=== PATIENT | female | born 1940 | race Caucasian/White ===

== ENCOUNTER 2018-02-06 10:01 | Outpatient (RCR) | payer MEDICARE ==
[~2018-02-06 10:01] MED LIST: ACHD5005 PO; AMIO200T50 PO; AMLO10TA4 PO; AMLO5TAB2 PO; ASP81CT PO; ATOR20TA66 PO; BACL10TA PO; CLIN-62 PO; CLOP75TA; CLPD75T; CODE-54; CPR500T PO; DABI150C5 PO; DABI75CA3 PO; DILT240C PO; DILT240C53 PO; DILT240C96 PO; HYDR-3714 PO; HYDR12.56 PO; HYDR25TA4 PO; IRBE1TAB17 PO; KCL10CCR; LEVO500T2 PO; LEVO75TA58 PO; LEVOTHYROXINE; LOSA100T7 PO; LOSARTAN; LVT.025T; LVT.05T; MAXIDE; METO-272 PO; METO-351 PO; METO50TA7 PO; MTP100TCR; MTP25TSR PO; MTP50T PO; NFNEB10T PO; POTA10CA43 PO; PRAV40TA PO; SIMV20TA3 PO; SIMV40TA2; SIMVASTATIN; SMV20T; VALS320T8 PO; [UNRECOGNIZED DRUG - OTHER]
== END 2018-03-07 | disposition home or self-care (01) ==
LOC: CARD 10:01
PROVIDERS: ATTEND Internal Medicine
DX: R42 Dizziness and giddiness (principal); R00.2 Palpitations
CPT/HCPCS: 93225; 93226

== ENCOUNTER → 2018-03-25 | Outpatient (CLI) | payer MEDICARE ==
--- NOTE | 2018-03-25 13:48 | Diagnostic Imaging Report ---
INDICATION: Injury to the ankle five days ago. Redness and swelling, hot to touch. EXAMINATION: Left ankle 03/15/2018. FINDINGS: Three views of the ankle demonstrate fairly diffuse soft tissue prominence. No acute fracture or dislocations appreciated. The ankle mortise is intact. Talar dome unremarkable. IMPRESSION: 1. Marked soft tissue prominence as described. Correlate for possible cellulitis versus edema. No underlying acute osseous abnormality appreciated. Dictated by: Dictated on workstation # [id number]
[2018-03-25 14:07] LABS: BASOPHILS # (AUTO) 0.1 10^3/uL (0.0-0.1); BASOPHILS % (AUTO) 1 % (0-10); EOSINOPHILS # (AUTO) 0.4 10^3/uL (0.0-0.3); EOSINOPHILS % (AUTO) 5 % (0-10); HEMATOCRIT 36 % (35-52); HEMOGLOBIN 11.7 G/DL (11.5-16.0); LYMPHOCYTES # (AUTO) 1.8 X 10^3 (1.0-4.0); LYMPHOCYTES % (AUTO) 22 % (12-44); MEAN CORPUSCULAR HEMOGLOBIN 30 PG (25-34); MEAN CORPUSCULAR HGB CONC 33 G/DL (32-36); MEAN CORPUSCULAR VOLUME 92 FL (80-99); MEAN PLATELET VOLUME 9.6 FL (7.4-10.4); MONOCYTES # (AUTO) 0.8 X 10^3 (0.0-1.0); MONOCYTES % (AUTO) 10 % (0-12); NEUTROPHILS # (AUTO) 5.2 X 10^3 (1.8-7.8); NEUTROPHILS % (AUTO) 63 % (42-75); PLATELET COUNT 308 10^3/uL (130-400); RED BLOOD COUNT 3.92 10^6/uL (4.35-5.85); RED CELL DISTRIBUTION WIDTH 14.2 % (10.0-14.5); WHITE BLOOD COUNT 8.3 10^3/uL (4.3-11.0)
[2018-03-25 14:20] LABS: INR 3.1 (0.8-1.4)
== END ==
LOC: LAB 13:17
PROVIDERS: ATTEND Nurse Practitioner Family
DX: Z51.81 Encounter for therapeutic drug level monitoring (principal); M25.472 Effusion, left ankle; Z79.01 Long term (current) use of anticoagulants; Z79.899 Other long term (current) drug therapy
CPT/HCPCS: 36415; 73610; 85025; 85610

== ENCOUNTER → 2018-04-21 | Outpatient (CLI) | payer MEDICARE | LOC: CARD 12:14 | PROVIDERS: ATTEND Internal Medicine Cardiovascular Disease | DX: I08.0 Rheumatic disorders of both mitral and aortic valves (principal); I25.10 Atherosclerotic heart disease of native coronary artery without angina pectoris; E78.5 Hyperlipidemia, unspecified; I10 Essential (primary) hypertension | CPT/HCPCS: 93306 ==

== ENCOUNTER 2018-08-16 10:30 | Outpatient (RCR) | payer MEDICARE | END 2018-08-16 13:20 | disposition home or self-care (01) | PROVIDERS: ATTEND Nurse Practitioner | DX: M54.41 Lumbago with sciatica, right side (principal) ==

== ENCOUNTER 2018-08-30 11:34 | Outpatient (RCR) | payer MEDICARE | END 2018-09-20 | disposition home or self-care (01) | LOC: CR3 11:34 | PROVIDERS: ATTEND Internal Medicine Cardiovascular Disease | DX: Z29.8 Encounter for other specified prophylactic measures (principal) ==

== ENCOUNTER 2018-09-08 08:54 | Emergency (ER) | payer MEDICARE ==
[~2018-09-08] VITALS: Ht 175.3 cm; Wt 78.0 kg
[2018-09-08 09:25] LABS: BASOPHILS # (AUTO) 0.1 10^3/uL (0.0-0.1); BASOPHILS % (AUTO) 1 % (0-10); EOSINOPHILS # (AUTO) 0.3 10^3/uL (0.0-0.3); EOSINOPHILS % (AUTO) 3 % (0-10); HEMATOCRIT 41 % (35-52); LYMPHOCYTES # (AUTO) 1.3 X 10^3 (1.0-4.0); LYMPHOCYTES % (AUTO) 15 % (12-44); MEAN CORPUSCULAR HEMOGLOBIN 29 PG (25-34); MEAN CORPUSCULAR HGB CONC 32 G/DL (32-36); MEAN CORPUSCULAR VOLUME 92 FL (80-99); MEAN PLATELET VOLUME 9.1 FL (7.4-10.4); MONOCYTES # (AUTO) 0.8 X 10^3 (0.0-1.0); MONOCYTES % (AUTO) 9 % (0-12); NEUTROPHILS % (AUTO) 72 % (42-75); PLATELET COUNT 374 10^3/uL (130-400); RED CELL DISTRIBUTION WIDTH 15.4 % (10.0-14.5); WHITE BLOOD COUNT 8.4 10^3/uL (4.3-11.0)
[2018-09-08] MEDS ORDERED: DILTIAZEM 25 MG/5 ML INJ (CARDIZEM) VIAL ONE (09:27)
[2018-09-08] MEDS ORDERED: NS (IVPB) 100 ML ONE (09:27)
[2018-09-08] MEDS ORDERED: DILTIAZEM 125 MG/25 ML IV (CARDIZEM) IV ONE (09:30)
[2018-09-08 09:43] LABS: ALBUMIN 4.2 GM/DL (3.2-4.5); BILIRUBIN,TOTAL 0.5 MG/DL (0.1-1.0); CALCIUM 9.6 MG/DL (8.5-10.1); CREATININE SERUM 1.16 MG/DL (0.60-1.30); MAGNESIUM 2.3 MG/DL (1.8-2.4); POTASSIUM 3.8 MMOL/L (3.6-5.0); TOTAL PROTEIN 7.8 GM/DL (6.4-8.2)
--- NOTE | 2018-09-08 09:44 | Consultation-Cardiology ---
HPI-Cardiology Cardiology Consultation Date of Consultation 09/08/18 Date of Admission Time Seen by Provider: 09:41 Indication: atrial fibrillation HPI 77-year-old lady with history of aortic valve replacement, paroxysmal atrial fibrillation was in her usual state of health until this morning when she woke up with palpitation feeling her heart racing, denied any chest pain or shortness of breath. Denied any syncope or near syncopal episode. Nunda slightly lightheaded. Came into the emergency room and noted to be in atrial fibrillation with rapid ventricular response. Home Medications & Allergies Allergies: Coded Allergies: Penicillins (Verified Allergy, Unknown, 05/03/07) Home Medication List Reviewed: Yes FOB-Wnxdts-Vyuprh Hx Patient Social History Marital Status: Employed/Student: retired Alcohol Use: Denies Use Recreational Drug Use: No Smoking Status: Never a Smoker Recent Hopitalizations: No Immunizations Up To Date Tetanus Booster (TDap): Unknown Date of Pneumonia Vaccine: Aug 08, 2008 Date of Influenza Vaccine: Jun 08, 2014 Past Medical History past medical history as described below Family Medical History Significant Family History: No Pertinent Family Hx Family Medical Hx noncontributory to her current condition Family History: Patient reports no known family medical history. Review of Systems Constitutional: no symptoms reported, see HPI EENTM: see HPI, no symptoms reported Respiratory: see HPI; No cough, No dyspnea on exertion, No hemoptysis, No orthopnea, No phlegm, No short of breath, No stridor, No wheezing, No other Cardiovascular: see HPI; No chest pain, No edema, No Hx of Intervention; palpitations; No syncope, No vascular heart diseas, No other Gastrointestinal: no symptoms reported, see HPI Genitourinary: no symptoms reported, see HPI Musculoskeletal: no symptoms reported, see HPI Skin: no symptoms reported, see HPI Psychiatric/Neurological: No Symptoms Reported, See HPI Reviewed Test Results Reviewed Test Results Lab Laboratory Tests Test 09/08/18 09:15 Range/Units White Blood Count 8.4 4.3-11.0 10^3/uL Red Blood Count 4.43 4.35-5.85 10^6/uL Hemoglobin 13.0 11.5-16.0 G/DL Hematocrit 41 35-52 % Mean Corpuscular Volume 92 80-99 FL Mean Corpuscular Hemoglobin 29 25-34 PG Mean Corpuscular Hemoglobin Concent 32 32-36 G/DL Red Cell Distribution Width 15.4 H 10.0-14.5 % Platelet Count 374 130-400 10^3/uL Mean Platelet Volume 9.1 7.4-10.4 FL Neutrophils (%) (Auto) 72 42-75 % Lymphocytes (%) (Auto) 15 12-44 % Monocytes (%) (Auto) 9 0-12 % Eosinophils (%) (Auto) 3 0-10 % Basophils (%) (Auto) 1 0-10 % Neutrophils # (Auto) 6.0 1.8-7.8 X 10^3 Lymphocytes # (Auto) 1.3 1.0-4.0 X 10^3 Monocytes # (Auto) 0.8 0.0-1.0 X 10^3 Eosinophils # (Auto) 0.3 0.0-0.3 10^3/uL Basophils # (Auto) 0.1 0.0-0.1 10^3/uL Physical Exam Vital Signs Capillary Refill : Height, Weight, BMI Height: 5'9.00" Weight: 175lbs. 2.4oz. [id number]; BMI Method:Stated General Appearance: No Apparent Distress, WD/WN Eyes: Bilateral Eye Normal Inspection, Bilateral Eye PERRL, Bilateral Eye EOMI HEENT: PERRL/EOMI, TMs Normal, Normal ENT Inspection, Pharynx Normal Neck: Full Range of Motion, Normal Inspection, Non Tender, Supple, Carotid Bruit Respiratory: Chest Non Tender, Lungs Clear, Normal Breath Sounds, No Accessory Muscle Use, No Respiratory Distress Cardiovascular: No Edema, No Gallop, No JVD, Normal Peripheral Pulses, Systolic Murmur, Irregularly Irregular, Tachycardia Gastrointestinal: Normal Bowel Sounds, No Organomegaly, No Pulsatile Mass, Non Tender, Soft Back: Normal Inspection, No CVA Tenderness, No Vertebral Tenderness Extremity: Normal Capillary Refill, Normal Inspection, Normal Range of Motion, Non Tender, No Calf Tenderness, No Pedal Edema Neurologic/Psychiatric: Alert, Oriented x3, No Motor/Sensory Deficits, Normal Mood/Affect Skin: Normal Color, Warm/Dry Lymphatic: No Adenopathy A/P-Cardiology Admission Diagnosis Paroxysmal atrial fibrillation Coronary artery disease Aortic valve stenosis Palpitation Assessment/Plan Paroxysmal atrial fibrillation, back in atrial fibrillation was rapid ventricular response, I will start on Cardizem drip, continue on Coreg and amiodarone and monitor her heart rate response, if she does not convert overnight. Consider electrical cardioversion Coronary artery disease with history of stent to LAD. Underwent cardiac catheterization in August 2017 in [place], which patient reports was normal. Continue to monitor Severe aortic valve stenosis, status post TAVR done in [place] in August 2017, continue to monitor. Mild bilateral carotid stenosis, history of syncope, continue to monitor Sick sinus syndrome, history of permanent pacemaker. Continue to monitor. Hypertension, continue to monitor blood pressure while on Cardizem drip Hyperlipidemia, monitor lipids Hypothyroidism, patient is maintained on amiodarone, followed and managed by primary care physician. EDY GOOD MD Sep 08, 2018 09:44
[2018-09-08] MEDS ORDERED: DILTIAZEM INJECTION 125 MG in NS (IVPB) 100 ML IV SCH (09:45)
[2018-09-08] MEDS ORDERED: CARVEDILOL 12.5 MG (COREG) TABLET PO ONE (09:45)
[2018-09-08] MEDS ORDERED: AMIODARONE 200 MG (CORDARONE) TAB PO SCH (09:45)
[2018-09-08] MEDS ORDERED: DILTIAZEM 25 MG/5 ML INJ (CARDIZEM) VIAL IVP ONE (09:45)
[2018-09-08 09:54] LABS: INR 3.2 (0.8-1.4); PROTHROMBIN TIME PATIENT 32.9 SEC (12.2-14.7)
[2018-09-08 10:03] LABS: FREE T4 (FREE THYROXINE) 1.33 NG/DL (0.70-1.48)
--- NOTE | 2018-09-08 10:57 | Diagnostic Imaging Report ---
INDICATION: Shortness of air, heart fluttering, atrial fibrillation. COMPARISON: 04/23/2015. FINDINGS: Loop recorder and pacemaker device unchanged. There is an aortic stent. The heart mildly enlarged but unchanged. No failure pattern, edema, pneumonia, effusion or pneumothorax. IMPRESSION: No acute appearing abnormality. Dictated by: Dictated on workstation # [id number]
--- NOTE | 2018-09-08 13:43 | ED Cardiac General ---
History of Present Illness General Chief Complaint: Respiratory Problems Stated Complaint: HEART FLUTTER;SOB Nursing Triage Note: PT PRESENTS TO ER WITH COMPLAINT OF SOA AND HEART FLUTTERING SINCE 2AM. STATES SHE CALLED [facility] OFFICE THIS AM AND WAS SENT HERE. PT HAS PACEMAKER AND HX OF AFIB. Source: patient Exam Limitations: no limitations History of Present Illness Date Seen by Provider: Sep 08, 2018 Time Seen by Provider: 09:05 Initial Comments This 77-year-old woman presents to the emergency room with complaints of fairly sudden onset of shortness of breath and fluttering heart around 02:00. She reports she can't hear her heartbeat in her ears. She sat in her recliner until her woke up. She has history of atrial fibrillation and has a pacemaker and a stent. She denies any chest pain. She reports calling Dr. Dixon's office this morning who directed her to the emergency room. She is on warfarin for stroke prophylaxis. She states her right leg is always swollen and she has no new lower extremity symptoms. She has an irregular rhythm in the 110s to 140s on the monitor. Allergies and Home Medications Allergies Coded Allergies: Penicillins (Verified Allergy, Unknown, 05/03/07) Home Medications Amiodarone Hcl 200 Mg Tab, 200 MG PO DAILY, (Reported) Amlodipine Besylate 5 Mg Tablet, 5 MG PO DAILY, (Reported) Atorvastatin 20 Mg Tablet, 20 MG PO HS, (Reported) Dabigatran Etexilate Mesylate 150 Mg Capsule, 150 MG PO BID, (Reported) Diltiazem HCl 240 Mg Cap.er.24h, 240 MG PO DAILY, (Reported) Hydrochlorothiazide 25 Mg Tablet, 25 MG PO DAILY, (Reported) Hydrocodone Bit/Acetaminophen 1 Each Tablet, 0.5-1 TAB PO Q4H PRN for PAIN, ( Reported) Levofloxacin 500 Mg Tablet, 500 MG PO DAILY Prescribed by: EDY DIXON on 04/24/15 0842 Levothyroxine Sodium 75 Mcg Tablet, 75 MCG PO DAILY, (Reported) Metoprolol Succinate 25 Mg Tab.er.24h, 25 MG PO DAILY Prescribed by: EDY DIXON on 04/24/15 0820 Valsartan 320 Mg Tablet, 320 MG PO DAILY, (Reported) Patient Home Medication List Home Medication List Reviewed: Yes Review of Systems Review of Systems Constitutional: no symptoms reported EENTM: See HPI Respiratory: See HPI Cardiovascular: See HPI Gastrointestinal: No Symptoms Reported Musculoskeletal: no symptoms reported Skin: no symptoms reported Psychiatric/Neurological: No Symptoms Reported Endocrine: No Symptoms Reported Hematologic/Lymphatic: No Symptoms Reported Past Dalvsqk-Upmgms-Czsbtc Hx Patient Social History Alcohol Use: Denies Use Recreational Drug Use: No Smoking Status: Never a Smoker Recent Foreign Travel: No Contact w/Someone Who Travel: No Recent Infectious Disease Expo: No Recent Hopitalizations: No Immunizations Up To Date Tetanus Booster (TDap): Unknown PED Vaccines UTD: No Date of Pneumonia Vaccine: Aug 08, 2008 Date of Influenza Vaccine: Jun 08, 2014 Seasonal Allergies Seasonal Allergies: Yes Past Medical History Surgeries: Yes (RIGHT INGUINAL HERNIA REPAIR, 1978 RIGHT KNEE SURGERY, ANKLE 1999) Coronary Stent, Pacemaker Respiratory: No Tuberculosis Cardiac: Yes (PACEMAKER) Atrial Fibrillation, High Cholesterol, Hypertension Neurological: No Reproductive Disorders: No Female Reproductive Disorders: Denies Sexually Transmitted Disease: No HIV/AIDS: No Gastrointestinal: No Musculoskeletal: No Endocrine: Yes Hypothyroidsim Cancer: No Psychosocial: No Integumentary: No Blood Disorders: No Family Medical History Patient reports no known family medical history. No Pertinent Family Hx Physical Exam Vital Signs Vital Signs - First Documented 09/08/18 09:00 Temp 98.4 Pulse 128 Resp 24 B/P (MAP) 142/101 (115) Pulse Ox 96 O2 Delivery Room Air Capillary Refill : Less Than 3 Seconds Height, Weight, BMI Height: 5'9.00" Weight: 172lbs. 2.4oz. 78.211824vm; BMI Method:Stated General Appearance: No Apparent Distress, WD/WN HEENT: PERRL/EOMI, Normal ENT Inspection Neck: Normal Inspection Respiratory: Lungs Clear, Normal Breath Sounds, No Accessory Muscle Use, No Respiratory Distress Cardiovascular: No Edema, No Murmur, Irregularly Irregular, Tachycardia Gastrointestinal: Normal Bowel Sounds, Non Tender, Soft Extremity: Non Tender, No Calf Tenderness, Pedal Edema (Mild edema of the right lower extremity) Neurologic/Psychiatric: Alert, Oriented x3, No Motor/Sensory Deficits, Normal Mood/Affect, state director II-XII Norm as Tested Skin: Normal Color, Warm/Dry Progress/Results/Core Measures Results/Orders Lab Results Laboratory Tests Test 09/08/18 09:13 2/1/19 09:15 Range/Units Prothrombin Time 32.9 H 12.2-14.7 SEC INR Comment 3.2 H 0.8-1.4 Activated Partial Thromboplast Time 49 H 24-35 SEC White Blood Count 8.4 4.3-11.0 10^3/uL Red Blood Count 4.43 4.35-5.85 10^6/uL Hemoglobin 13.0 11.5-16.0 G/DL Hematocrit 41 35-52 % Mean Corpuscular Volume 92 80-99 FL Mean Corpuscular Hemoglobin 29 25-34 PG Mean Corpuscular Hemoglobin Concent 32 32-36 G/DL Red Cell Distribution Width 15.4 H 10.0-14.5 % Platelet Count 374 130-400 10^3/uL Mean Platelet Volume 9.1 7.4-10.4 FL Neutrophils (%) (Auto) 72 42-75 % Lymphocytes (%) (Auto) 15 12-44 % Monocytes (%) (Auto) 9 0-12 % Eosinophils (%) (Auto) 3 0-10 % Basophils (%) (Auto) 1 0-10 % Neutrophils # (Auto) 6.0 1.8-7.8 X 10^3 Lymphocytes # (Auto) 1.3 1.0-4.0 X 10^3 Monocytes # (Auto) 0.8 0.0-1.0 X 10^3 Eosinophils # (Auto) 0.3 0.0-0.3 10^3/uL Basophils # (Auto) 0.1 0.0-0.1 10^3/uL Sodium Level 142 135-145 MMOL/L Potassium Level 3.8 3.6-5.0 MMOL/L Chloride Level 106 98-107 MMOL/L Carbon Dioxide Level 22 21-32 MMOL/L Anion Gap 14 5-14 MMOL/L Blood Urea Nitrogen 18 7-18 MG/DL Creatinine 1.16 0.60-1.30 MG/DL Estimat Glomerular Filtration Rate 45 BUN/Creatinine Ratio 16 Glucose Level 172 H 70-105 MG/DL Calcium Level 9.6 8.5-10.1 MG/DL Corrected Calcium 9.4 8.5-10.1 MG/DL Magnesium Level 2.3 1.8-2.4 MG/DL Total Bilirubin 0.5 0.1-1.0 MG/DL Aspartate Amino Transf (AST/SGOT) 20 5-34 U/L Alanine Aminotransferase (ALT/SGPT) 18 0-55 U/L Alkaline Phosphatase 121 40-136 U/L B-Type Natriuretic Peptide 306.0 H <100.0 PG/ML Total Protein 7.8 6.4-8.2 GM/DL Albumin 4.2 3.2-4.5 GM/DL Thyroid Stimulating Hormone (TSH) 2.26 0.35-4.94 UIU/ML Free Thyroxine 1.33 0.70-1.48 NG/DL My Orders Orders - JOHN KERNS MD BNP (09/08/18 09:18) Cbc With Automated Diff (09/08/18 09:18) Comprehensive Metabolic Panel (09/08/18:18) Magnesium (09/08/18 09:20) Thyroid Stimulating Hormone (09/08/18 09:20) Free T4 (Free Thyroxine) (09/08/18 09:20) Saline Lock/Iv-Start (09/08/18 09:20) Ekg Tracing (09/08/18 09:20) Monitor-Rhythm Ecg Trace Only (09/08/18 09:20) Ns (Ivpb) (Sodium Chloride 0.9% Ivpb Bag (09/08/18 09:27) Diltiazem Injection (Cardizem Injection) (09/08/18 09:27) Diltiazem Iv For Drip (Cardizem Iv For D (09/08/18 09:30) Chest 1 View, Ap/Pa Only (09/08/18 10:05) Ekg Tracing (09/08/18 11:37) Medications Given in ED Current Medications Medications Dose Ordered Sig/Robbin Route Start Time Stop Time Status Last Admin Dose Admin Carvedilol 12.5 mg ONCE ONCE PO 09/08/18 09:45 09/08/18 14:22 DC 09/08/18 14:27 12.5 MG Diltiazem HCl 10 mg ONCE ONCE IVP 09/08/18 09:45 09/08/18 14:22 DC 09/08/18 09:37 10 MG Vital Signs/I&O 09/08/18 09/08/18 09:00 14:20 Temp 98.4 Pulse 128 62 Resp 24 20 B/P (MAP) 142/101 (115) 140/67 (91) Pulse Ox 96 97 O2 Delivery Room Air Room Air Blood Pressure Mean: 115 Progress Progress Note : Progress Note Patient was placed on a Cardizem drip. Dr. Dixon came to see the patient and evaluated her. We kept her on a Cardizem drip until she converted to a rate- controlled paced rhythm. She was then dismissed home with instructions to take her amiodarone twice daily. She is to follow-up with Dr. Dixon next week. Follow-up plan was discussed with Dr. Dixon before dismissal. EKG #1: EKG Time: 09:02 Rate: 129 Rhythm: A Fib/Flutter Comment Atrial flutter with RVR. No acute ST elevation or depression. EKG #2: EKG Time: 11:41 Rate: 67 Rhythm: atrial paced Comment Atrial paced rhythm with no diagnostic ST changes. Similar to prior. LVH by automated read. Diagnostic Imaging Diagonstic Imaging: Xray Plain Films/CT/US/NM/MRI: chest Comments NAME: JAZMÍN GRIDER [facility] REC#: [id number] PT STATUS: REG ER : 1940 PHYSICIAN: JOHN KERNS MD ADMIT DATE: 09/08/18/ER Signed Date of Exam: 09/08/18 CHEST 1 VIEW, AP/PA ONLY INDICATION: Shortness of air, heart fluttering, atrial fibrillation. COMPARISON: 04/23/2015. FINDINGS: Loop recorder and pacemaker device unchanged. There is an aortic stent. The heart mildly enlarged but unchanged. No failure pattern, edema, pneumonia, effusion or pneumothorax. IMPRESSION: No acute appearing abnormality. Dictated by: Dictated on workstation # [id number] Dict: 09/08/18 1052 Trans: 09/08/18 1408 Interpreted by: YAYA ESTRADA Electronically signed by: YAYA ESTRADA 09/08/18 1408 Departure Impression Primary Impression: Atrial fibrillation with RVR Disposition: 01 HOME, SELF-CARE Condition: Improved Departure-Patient Inst. Decision time for Depature: 13:42 Referrals: JOA[facility] PERERA MD (PCP/Family) Primary Care Physician Patient Instructions: Atrial Fibrillation Add. Discharge Instructions: Increase your amiodarone to twice daily. Continue all your other medications as prescribed. See Dr. Dixon in his clinic next week. Follow-up with your primary care provider as soon as possible. Return to care if you have worsening symptoms again. All discharge instructions reviewed with patient and/or family. Voiced understanding. Copy Copies To 1: EDY DIXON MD, [facility] T MD Sep 08, 2018 13:43
[2018-09-08 14:20] VITALS: BP 140/67
[2018-09-08] MEDS ORDERED: warFARin 2 MG (COUMADIN) TAB PO SCH (18:00)
[2018-09-08] MEDS ORDERED: CARVEDILOL 12.5 MG (COREG) TABLET PO SCH (21:00)
== END 2018-09-08 14:20 | disposition home or self-care (01) ==
LOC: EDUNIT# 08:54 → ER 08:55
DX: I48.91 Unspecified atrial fibrillation (principal); E78.00 Pure hypercholesterolemia, unspecified; I10 Essential (primary) hypertension; E03.9 Hypothyroidism, unspecified; Z95.5 Presence of coronary angioplasty implant and graft; Z95.0 Presence of cardiac pacemaker; Z88.0 Allergy status to penicillin; Z79.01 Long term (current) use of anticoagulants; Z98.890 Other specified postprocedural states
CPT/HCPCS: 36415; 71045; 80053; 83735; 83880; 84439; 84443; 85025; 85610; 85730; 93005; 93041

== ENCOUNTER → 2018-10-12 | Outpatient (CLI) | payer MEDICARE | LOC: CARD 12:48 | PROVIDERS: ATTEND Physician Assistant | DX: I48.0 Paroxysmal atrial fibrillation (principal); I25.10 Atherosclerotic heart disease of native coronary artery without angina pectoris; K21.9 Gastro-esophageal reflux disease without esophagitis; E78.5 Hyperlipidemia, unspecified; I10 Essential (primary) hypertension; I08.3 Combined rheumatic disorders of mitral, aortic and tricuspid valves | CPT/HCPCS: 93306 ==

== ENCOUNTER 2018-11-07 07:02 | Inpatient (IN) | payer MEDICARE ==
[~2018-11-07] VITALS: Ht 175.3 cm; Wt 77.8 kg
--- OUTSIDE RECORDS SUMMARY | 2018-11-07 07:09 | XMS REPORT | Continuity of Care Document ---
Author Author [facility] Organization [facility] Address Unknown Phone Unavailable Allergies Active Description Code Type Severity Reaction Onset Reported/Identified Relationship to Patient Clinical Status Yes Penicillins [id number] Drug Allergy Unknown N/A 05/03/2007 Medications There is no data. Problems Date Dx Coded Attending Type Code Diagnosis Diagnosed By 07/07/1319 MAXIME DOS SANTOS APRN Ot M54.41 LUMBAGO WITH SCIATICA, RIGHT SIDE 05/05/2007 Ot 787.91 07/30/2010 Ot 787.91 2010 Ot 244.9 2010 Ot 272.4 2010 Ot 401.9 2010 Ot 412 2010 Ot 414.01 2010 Ot 427.31 2010 Ot 429.3 2010 Ot 786.50 2010 Ot V45.82 08/30/2011 Ot 244.9 08/30/2011 Ot 272.4 08/30/2011 Ot 275.2 08/30/2011 Ot 276.8 08/30/2011 Ot 402.90 08/30/2011 Ot 410.71 08/30/2011 Ot 414.01 08/30/2011 Ot 427.31 08/30/2011 Ot 427.81 08/30/2011 Ot E944.3 08/30/2011 Ot V45.82 10/02/2012 Ot 427.31 ATRIAL FIBRILLATION 10/02/2012 Ot 785.1 PALPITATIONS 11/28/2012 Ot 462 ACUTE PHARYNGITIS 11/28/2012 Ot 527.2 SIALOADENITIS 03/20/2013 JOAQUÍN PERERA MD Ot 244.9 HYPOTHYROIDISM NOS 03/20/2013 JOAQUÍN PERERA MD Ot 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 03/20/2013 JOAQUÍN PERERA MD Ot 272.4 HYPERLIPIDEMIA NEC/NOS 03/20/2013 JOAQUÍN PERERA MD Ot 401.9 HYPERTENSION NOS 03/20/2013 JOAQUÍN PERERA MD Ot 413.9 ANGINA PECTORIS NEC/NOS 03/20/2013 JOAQUÍN PERERA MD Ot 414.01 CORONARY ATHEROSCLEROSIS OF [place] CORON 03/20/2013 JOAQUÍN PERERA MD Ot 424.1 AORTIC VALVE DISORDER 03/20/2013 JOAQUÍN PERERA MD Ot 427.31 ATRIAL FIBRILLATION 03/20/2013 JOAQUÍN PERERA MD Ot 427.89 CARDIAC DYSRHYTHMIAS NEC 03/20/2013 JOAQUÍN PERERA MD Ot V12.01 PERSONAL HISTORY OF TUBERCULOSIS 03/20/2013 JOAQUÍN PERERA MD Ot V12.51 HX-VENOUS THROMBOSIS EMBOLISM 03/20/2013 JOAQUÍN PERERA MD Ot V45.82 PERCUTANEOUS TRANSLUM CORON ANGIOPLASTY 04/18/2013 JOAQUÍN PERERA MD Ot 244.9 HYPOTHYROIDISM NOS 04/18/2013 JOAQUÍN PERERA MD Ot 276.8 HYPOPOTASSEMIA 04/18/2013 JOAQUÍN PERERA MD Ot 787.91 DIARRHEA 04/18/2013 JOAQUÍN PERERA MD Ot V58.69 OTH MED,LT,CURRENT USE 07/03/2014 JOAQUÍN PERERA MD Ot 793.80 07/15/2014 JOAQUÍN PERERA MD Ot 793.80 10/20/2014 Ot 847.0 SPRAIN OF NECK 10/20/2014 Ot 847.2 SPRAIN LUMBAR REGION 10/20/2014 Ot 850.0 CONCUSSION W/ O COMA 10/20/2014 Ot 959.01 HEAD INJURY , NOS 10/20/2014 Ot E000.0 CIVILIAN ACTIVITY DONE FOR INCOME OR PAY 10/20/2014 Ot E014.1 CAREGIVING INVOLVING LIFTING 10/20/2014 Ot E849.7 ACCID IN RESIDENT INSTIT 10/20/2014 Ot E888.1 FALL STRIKING OBJECT NEC 10/25/2014 Ot 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 10/25/2014 Ot 784.0 HEADACHE 10/25/2014 Ot 845.00 SPRAIN OF ANKLE NOS 10/25/2014 Ot E000.0 CIVILIAN ACTIVITY DONE FOR INCOME OR PAY 10/25/2014 Ot E849.[address] NEC 10/25/2014 Ot E888.9 FALL NOS 12/02/2014 EDY GOOD MD Ot 244.9 12/02/2014 EDY GOOD MD Ot 272.4 12/02/2014 EDY GOOD MD Ot 401.9 12/02/2014 EDY GOOD MD Ot 414.00 12/02/2014 EDY GOOD MD Ot 424.1 12/02/2014 EDY GOOD MD Ot 427.31 12/02/2014 EDY GOOD MD Ot 780.2 12/02/2014 EDY GOOD MD Ot 785.0 12/02/2014 EDY GOOD MD Ot V45.82 12/02/2014 EDY GOOD MD Ot V58.61 12/02/2014 EDY GOOD MD Ot V58.69 12/04/2014 EDY GOOD MD Ot 244.9 12/04/2014 EDY GOOD MD Ot 272.4 12/04/2014 EDY GOOD MD Ot 401.9 12/04/2014 EDY GOOD MD Ot 414.00 12/04/2014 EDY GOOD MD Ot 424.1 12/04/2014 EDY GOOD MD Ot 427.31 12/04/2014 EDY GOOD MD Ot 780.2 12/04/2014 EDY GOOD MD Ot 785.0 12/04/2014 EDY GOOD MD Ot V45.82 12/04/2014 EDY GOOD MD Ot V58.61 12/04/2014 EDY GOOD MD Ot V58.69 01/06/2015 MAXIME DOS SANTOS QUALITY ASSURANCE GROUP LEADER Ot 729.5 01/06/2015 MAXIME DOS SANTOS QUALITY ASSURANCE GROUP LEADER Ot 729.81 01/21/2015 MAXIME DOS SANTOS QUALITY ASSURANCE GROUP LEADER Ot 729.5 01/21/2015 MAXIME DOS SANTOS QUALITY ASSURANCE GROUP LEADER Ot 729.81 04/24/2015 EDY GOOD MD Ot 244.9 HYPOTHYROIDISM NOS 04/24/2015 EDY GOOD MD Ot 272.4 HYPERLIPIDEMIA NEC/NOS 04/24/2015 EDY GOOD MD Ot 401.9 HYPERTENSION NOS 04/24/2015 EDY GOOD MD Ot 414.01 CORONARY ATHEROSCLEROSIS OF [place] CORON 04/24/2015 EDY GOOD MD Ot 424.1 AORTIC VALVE DISORDER 04/24/2015 EDY GOOD MD Ot 427.31 ATRIAL FIBRILLATION 04/24/2015 EDY GOOD MD Ot 427.81 SINOATRIAL NODE DYSFUNCT 04/24/2015 EDY GOOD MD Ot 780.2 SYNCOPE AND COLLAPSE 04/24/2015 EDY GOOD MD Ot V45.82 PERCUTANEOUS TRANSLUM CORON ANGIOPLASTY 04/24/2015 EDY GOOD MD Ot V58.61 ANTICOAGULANTS,LT,CURRENT USE 04/24/2015 EDY GOOD MD Ot V58.69 OTH MED,LT,CURRENT USE 05/07/2015 EDY GOOD MD Ot 272.4 05/07/2015 EDY GOOD MD Ot 401.9 05/07/2015 EDY GOOD MD Ot 427.31 05/07/2015 EDY GOOD MD Ot 427.81 05/14/2015 EDY GOOD MD Ot 272.4 05/14/2015 EDY GOOD MD Ot 401.9 05/14/2015 EDY GOOD MD Ot 427.31 05/14/2015 EDY GOOD MD Ot 427.81 10/24/2015 Ot 721.3 10/24/2015 Ot 715.37 10/24/2015 Ot 272.4 10/24/2015 Ot 401.9 10/24/2015 Ot 414.00 10/24/2015 Ot 272.4 10/24/2015 Ot 401.9 10/24/2015 Ot 414.01 10/24/2015 Ot 272.4 10/24/2015 Ot 401.9 10/24/2015 Ot 414.01 10/24/2015 Ot 729.5 10/24/2015 Ot 782.3 10/24/2015 Ot 787.91 10/24/2015 Ot 787.91 10/24/2015 Ot 729.81 10/24/2015 Ot 455.0 10/24/2015 Ot 455.3 10/24/2015 Ot 562.10 10/24/2015 Ot 569.89 10/24/2015 Ot 787.91 10/24/2015 Ot V64.3 10/24/2015 Ot 562.10 10/24/2015 Ot 787.91 10/24/2015 Ot 427.31 10/24/2015 Ot 785.1 10/24/2015 EDY GOOD MD Ot 396.3 10/24/2015 EDY GOOD MD Ot 397.0 10/24/2015 FLORENTINO SWENSON, EDY J Ot 429.3 10/24/2015 Ot 244.9 10/24/2015 Ot 276.8 10/24/2015 Ot 787.91 10/24/2015 Ot V58.69 10/24/2015 JOAQUÍN PERERA MD Ot 786.2 10/24/2015 MAXIME DOS SANTOS QUALITY ASSURANCE GROUP LEADER Ot 722.52 10/24/2015 FLORENTINO SWENSON, EDY Rodríguez Ot 396.3 10/24/2015 FLORENTINO SWENSON, EDY J Ot 397.0 10/24/2015 FLORENTINO SWENSON, JUSTOHAR J Ot 401.9 10/24/2015 FLORENTINO SWENSON, JUSTOHAR J Ot 414.00 10/24/2015 FLORENTINO SWENSON, EDY J Ot 427.31 10/24/2015 ALTHEA GE MD Ot 719.45 10/24/2015 TREVER SWENSON, JOAQUÍN Baptiste Ot V76.12 10/24/2015 JOAQUÍN PERERA MD Ot 793.80 10/24/2015 EDY GOOD MD J Ot 244.9 10/24/2015 FLORENTINO SWENSON, EDY J Ot 272.4 10/24/2015 FLORENTINO SWENSON, EDY J Ot 401.9 10/24/2015 FLORENTINO SWENSON, EDY Rodríguez Ot 414.00 10/24/2015 FLORENTINO SWENSON, EDY Rodríguez Ot 424.1 10/24/2015 FLORENTINO SWENSON, EDY J Ot 427.31 10/24/2015 FLORENTINO SWENSON, EDY J Ot 780.2 10/24/2015 EDY GOOD MD Ot 785.0 10/24/2015 EDY GOOD MD J Ot V45.82 10/24/2015 FLORENTINO SWENSON, JUSTOHAR J Ot V58.61 10/24/2015 FLORENTINO SWENSON, JUSTOHAR J Ot V58.69 10/24/2015 MAXIME DOS SANTOS APRN Ot 729.5 10/24/2015 MAXIME DOS SANTOS QUALITY ASSURANCE GROUP LEADER Ot 729.81 10/24/2015 FLORENTINO SWENSON, EDY J Ot 272.4 10/24/2015 FLORENTINO SWENSON, JUSTOHAR J Ot 401.9 10/24/2015 EDY GOOD MD J Ot 427.31 10/24/2015 EDY GOOD MD J Ot 427.81 02/06/2018 Ot 427.31 ATRIAL FIBRILLATION 02/06/2018 Ot 785.1 PALPITATIONS 02/06/2018 EDY GOOD MD Ot 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 02/06/2018 EDY GOOD MD Ot 397.0 TRICUSPID VALVE DISEASE 02/06/2018 EDY GOOD MD Ot 429.3 CARDIOMEGALY 02/06/2018 Ot 244.9 HYPOTHYROIDISM NOS 02/06/2018 Ot 276.8 HYPOPOTASSEMIA 02/06/2018 Ot 787.91 DIARRHEA 02/06/2018 Ot V58.69 OT MED,LT, CURRENT USE 02/06/2018 JOAQUÍN PERERA MD Ot 786.2 COUGH 02/06/2018 MAXIME DOS SANTOS APRN Ot 722.52 LUMB/LUMBOSAC DISC DEGEN 02/06/2018 EDY GOOD MD Ot 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 02/06/2018 EDY GOOD MD Ot 397.0 TRICUSPID VALVE DISEASE 02/06/2018 EDY GOOD MD Ot 401.9 HYPERTENSION NOS 02/06/2018 EDY GOOD MD Ot 414.00 CORON ATHEROSCLER NOS TYPE VESSEL, NATIV 02/06/2018 EDY GOOD MD Ot 427.31 ATRIAL FIBRILLATION 02/06/2018 ALTHEA GE MD Ot 719.45 JOINT PAIN-PELVIS 02/06/2018 JOAQUÍN PERERA MD Ot V76.12 OT SCREEN MAMMO-MALIGN NEOPLASM OF [place] 02/06/2018 JOAQUÍN PERERA MD Ot 793.80 UNSPEC ABNORMAL MAMMOGRAM 02/06/2018 EDY GOOD MD Ot 244.9 HYPOTHYROIDISM NOS 02/06/2018 EDY GOOD MD Ot 272.4 HYPERLIPIDEMIA NEC/NOS 02/06/2018 EDY GOOD MD Ot 401.9 HYPERTENSION NOS 02/06/2018 EDY GOOD MD Ot 414.00 CORON ATHEROSCLER NOS TYPE VESSEL, [place]IV 02/06/2018 EDY GOOD MD Ot 424.1 AORTIC VALVE DISORDER 02/06/2018 EDY GOOD MD Ot 427.31 ATRIAL FIBRILLATION 02/06/2018 EDY GOOD MD Ot 780.2 SYNCOPE AND COLLAPSE 02/06/2018 EDY GOOD MD Ot 785.0 TACHYCARDIA NOS 02/06/2018 EDY GOOD MD Ot V45.82 PERCUTANEOUS TRANSLUM CORON ANGIOPLASTY 02/06/2018 EDY GOOD MD Ot V58.61 ANTICOAGULANTS,LT,CURRENT USE 02/06/2018 EDY GOOD MD Ot V58.69 OTH MED,LT,CURRENT USE 02/06/2018 MAXIME DOS SANTOS QUALITY ASSURANCE GROUP LEADER Ot 729.5 PAIN IN LIMB 02/06/2018 MAXIME DOS SANTOS QUALITY ASSURANCE GROUP LEADER Ot 729.81 SWELLING OF LIMB 02/06/2018 EDY GOOD MD Ot 272.4 HYPERLIPIDEMIA NEC/NOS 02/06/2018 EDY GOOD MD Ot 401.9 HYPERTENSION NOS 02/06/2018 EDY GOOD MD Ot 427.31 ATRIAL FIBRILLATION 02/06/2018 EDY GOOD MD Ot 427.81 SINOATRIAL NODE DYSFUNCT 03/07/2018 JOAQUÍN PERERA MD Ot R00.2 PALPITATIONS 03/07/2018 JOAQUÍN PERERA MD Ot R42 DIZZINESS AND GIDDINESS 03/28/2018 ZACH MO QUALITY ASSURANCE GROUP LEADER-C Ot M25.472 EFFUSION, LEFT ANKLE 03/28/2018 ZACH MO QUALITY ASSURANCE GROUP LEADER-C Ot Z51.81 ENCOUNTER FOR THERAPEUTIC DRUG LEVEL [facility] 03/28/2018 ZACH MO-C Ot Z79.01 FACTORY MACHINE COMPUTER OPERATOR (CURRENT) USE OF ANTICOAGULANT 03/28/2018 ZACH MO QUALITY ASSURANCE GROUP LEADER-C Ot Z79.899 OTHER HALF-WAY (CURRENT) DRUG THERAPY 03/28/2018 JOAQUÍN PERERA MD Ot R00.2 PALPITATIONS 03/28/2018 JOAQUÍN PERERA MD Ot R42 DIZZINESS AND GIDDINESS 04/07/2018 JOAQUÍN PERERA MD Ot R00.2 PALPITATIONS 04/07/2018 JOAQUÍN PERERA MD Ot R42 DIZZINESS AND GIDDINESS 04/25/2018 EDY GOOD MD Ot E78.5 HYPERLIPIDEMIA, UNSPECIFIED 04/25/2018 EDY GOOD MD Ot 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 04/25/2018 EDY GOOD MD Ot I10 ESSENTIAL (PRIMARY) HYPERTENSION 04/25/2018 EDY GOOD MD Ot I25.10 ATHSCL HEART DISEASE OF [place] CORONARY 04/26/2018 ZACH MO QUALITY ASSURANCE GROUP LEADER-C Ot M25.472 EFFUSION, LEFT ANKLE 04/26/2018 ZACH MO QUALITY ASSURANCE GROUP LEADER-C Ot Z51.81 ENCOUNTER FOR THERAPEUTIC DRUG LEVEL MON 04/26/2018 ZACH MO QUALITY ASSURANCE GROUP LEADER-C Ot Z79.01 FACTORY MACHINE COMPUTER OPERATOR (CURRENT) USE OF ANTICOAGULANT 04/26/2018 EMERSON MOA QUALITY ASSURANCE GROUP LEADER-C Ot Z79.899 OTHER HALF-WAY (CURRENT) DRUG THERAPY 05/03/2018 ZACH MO QUALITY ASSURANCE GROUP LEADER-C Ot M25.472 EFFUSION, LEFT ANKLE 05/03/2018 EMERSON MOA QUALITY ASSURANCE GROUP LEADER-C Ot Z51.81 ENCOUNTER FOR THERAPEUTIC DRUG LEVEL MON 05/03/2018 ZACH MO QUALITY ASSURANCE GROUP LEADER-C Ot Z79.01 FACTORY MACHINE COMPUTER OPERATOR (CURRENT) USE OF ANTICOAGULANT 05/03/2018 EMERSON MOA QUALITY ASSURANCE GROUP LEADER-C Ot Z79.899 OTHER FACTORY MACHINE COMPUTER OPERATOR (CURRENT) DRUG THERAPY 05/08/2018 TREVER SWENSON, JOAQUÍN Baptiste Ot R00.2 PALPITATIONS 05/08/2018 JOAQUÍN PERERA MD Ot R42 DIZZINESS AND GIDDINESS 05/10/2018 JOAQUÍN PERERA MD Ot R00.2 PALPITATIONS 05/10/2018 JOAQUÍN PERERA MD Ot R42 DIZZINESS AND GIDDINESS 05/11/2018 EDY GOOD MD Ot E78.5 HYPERLIPIDEMIA, UNSPECIFIED 05/11/2018 EDY GOOD MD Ot 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 05/11/2018 EDY GOOD MD Ot I10 ESSENTIAL (PRIMARY) HYPERTENSION 05/11/2018 EDY GOOD MD Ot I25.10 ATHSCL HEART DISEASE OF [place] CORONARY 05/17/2018 EDY GOOD MD Ot E78.5 HYPERLIPIDEMIA, UNSPECIFIED 05/17/2018 EDY GOOD MD Ot 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 05/17/2018 EDY GOOD MD Ot I10 ESSENTIAL (PRIMARY) HYPERTENSION 05/17/2018 EDY GOOD MD Ot I25.10 ATHSCL HEART DISEASE OF [place] CORONARY 07/12/2018 EDY GOOD MD Ot 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 07/12/2018 EDY GOOD MD Ot 397.0 TRICUSPID VALVE DISEASE 07/12/2018 EDY GOOD MD Ot 429.3 CARDIOMEGALY 07/12/2018 Ot 244.9 HYPOTHYROIDISM NOS 07/12/2018 Ot 276.8 HYPOPOTASSEMIA 07/12/2018 Ot 787.91 DIARRHEA 07/12/2018 Ot V58.69 OTH MED,LT, CURRENT USE 07/12/2018 JOAQUÍN PERERA MD Ot 786.2 COUGH 07/12/2018 MAXIME DOS SANTOS QUALITY ASSURANCE GROUP LEADER Ot 722.52 LUMB/LUMBOSAC DISC DEGEN 07/12/2018 EDY GOOD MD Ot 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 07/12/2018 EDY GOOD MD Ot 397.0 TRICUSPID VALVE DISEASE 07/12/2018 EDY GOOD MD Ot 401.9 HYPERTENSION NOS 07/12/2018 EDY GOOD MD Ot 414.00 CORON ATHEROSCLER NOS TYPE VESSEL, NATIV 07/12/2018 EDY GOOD MD Ot 427.31 ATRIAL FIBRILLATION 07/12/2018 ALTHEA GE MD Ot 719.45 JOINT PAIN-PELVIS 07/12/2018 JOAQUÍN PERERA MD Ot V76.12 OT SCREEN MAMMO-MALIGN NEOPLASM OF [place] 07/12/2018 JOAQUÍN PERERA MD Ot 793.80 UNSPEC ABNORMAL MAMMOGRAM 07/12/2018 EDY GOOD MD Ot 244.9 HYPOTHYROIDISM NOS 07/12/2018 EDY GOOD MD Ot 272.4 HYPERLIPIDEMIA NEC/NOS 07/12/2018 EDY GOOD MD Ot 401.9 HYPERTENSION NOS 07/12/2018 EDY GOOD MD Ot 414.00 CORON ATHEROSCLER NOS TYPE VESSEL, NATIV 07/12/2018 EDY GOOD MD Ot 424.1 AORTIC VALVE DISORDER 07/12/2018 EDY GOOD MD Ot 427.31 ATRIAL FIBRILLATION 07/12/2018 EDY GOOD MD Ot 780.2 SYNCOPE AND COLLAPSE 07/12/2018 EDY GOOD MD Ot 785.0 TACHYCARDIA NOS 07/12/2018 EDY GOOD MD Ot V45.82 PERCUTANEOUS TRANSLUM CORON ANGIOPLASTY 07/12/2018 EDY GOOD MD Ot V58.61 ANTICOAGULANTS,LT,CURRENT USE 07/12/2018 EYD GOOD MD Ot V58.69 OTH MED,LT,CURRENT USE 07/12/2018 MAXIME DOS SANTOS QUALITY ASSURANCE GROUP LEADER Ot 729.5 PAIN IN LIMB 07/12/2018 MAXIME DOS SANTOS APRN Ot 729.81 SWELLING OF LIMB 07/12/2018 EDY GOOD MD Ot 272.4 HYPERLIPIDEMIA NEC/NOS 07/12/2018 EDY GOOD MD Ot 401.9 HYPERTENSION NOS 07/12/2018 EDY GOOD MD Ot 427.31 ATRIAL FIBRILLATION 07/12/2018 EDY GOOD MD Ot 427.81 SINOATRIAL NODE DYSFUNCT 07/12/2018 ZACH MO QUALITY ASSURANCE GROUP LEADER-C Ot M25.472 EFFUSION, LEFT ANKLE 07/12/2018 ZACH MO QUALITY ASSURANCE GROUP LEADER-C Ot Z51.81 ENCOUNTER FOR THERAPEUTIC DRUG LEVEL MON 07/12/2018 ZACH MO QUALITY ASSURANCE GROUP LEADER-C Ot Z79.01 HALF-WAY (CURRENT) USE OF ANTICOAGULANT 07/12/2018 ZACH MO QUALITY ASSURANCE GROUP LEADER-C Ot Z79.899 OTHER FACTORY MACHINE COMPUTER OPERATOR (CURRENT) DRUG THERAPY 07/12/2018 EDY GOOD MD Ot E78.5 HYPERLIPIDEMIA, UNSPECIFIED 07/12/2018 EDY GOOD MD Ot 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 07/12/2018 EDY GOOD MD Ot I10 ESSENTIAL (PRIMARY) HYPERTENSION 07/12/2018 DEY GOOD MD Ot I25.10 ATHSCL HEART DISEASE OF [place] CORONARY 07/12/2018 JOAQUÍN PERERA MD Ot R00.2 PALPITATIONS 07/12/2018 JOAQUÍN PERERA MD Ot R42 DIZZINESS AND GIDDINESS 07/14/2018 MAXIME DOS SANTOS APRN Ot M54.41 LUMBAGO WITH SCIATICA, RIGHT SIDE 08/16/2018 MAXIME DOS SANTOS APRN Ot M54.41 LUMBAGO WITH SCIATICA, RIGHT SIDE 09/08/2018 Ot 244.9 HYPOTHYROIDISM NOS 09/08/2018 Ot 276.8 HYPOPOTASSEMIA 09/08/2018 Ot 787.91 DIARRHEA 09/08/2018 Ot V58.69 OTH MED,LT, CURRENT USE 09/08/2018 JOAQUÍN PERERA MD Ot 786.2 COUGH 09/08/2018 MAXIME DOS SANTOS APRN Ot 722.52 LUMB/LUMBOSAC DISC DEGEN 09/08/2018 EDY GOOD MD Ot 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 09/08/2018 EDY GOOD MD Ot 397.0 TRICUSPID VALVE DISEASE 09/08/2018 EDY GOOD MD Ot 401.9 HYPERTENSION NOS 09/08/2018 EDY GOOD MD Ot 414.00 CORON ATHEROSCLER NOS TYPE VESSEL, NATIV 09/08/2018 EDY GOOD MD Ot 427.31 ATRIAL FIBRILLATION 09/08/2018 LATHEA GE MD Ot 719.45 JOINT PAIN-PELVIS 09/08/2018 JOAQUÍN PERERA MD Ot V76.12 OT SCREEN MAMMO-MALIGN NEOPLASM OF [place] 09/08/2018 JOAQUÍN PERERA MD Ot 793.80 UNSPEC ABNORMAL MAMMOGRAM 09/08/2018 EDY GOOD MD Ot 244.9 HYPOTHYROIDISM NOS 09/08/2018 EDY GOOD MD Ot 272.4 HYPERLIPIDEMIA NEC/NOS 09/08/2018 EDY GOOD MD Ot 401.9 HYPERTENSION NOS 09/08/2018 EDY GOOD MD Ot 414.00 CORON ATHEROSCLER NOS TYPE VESSEL, NATIV 09/08/2018 EDY GOOD MD Ot 424.1 AORTIC VALVE DISORDER 09/08/2018 EDY GOOD MD Ot 427.31 ATRIAL FIBRILLATION 09/08/2018 EDY GOOD MD Ot 780.2 SYNCOPE AND COLLAPSE 09/08/2018 EDY GOOD MD Ot 785.0 TACHYCARDIA NOS 09/08/2018 EDY GOOD MD Ot V45.82 PERCUTANEOUS TRANSLUM CORON ANGIOPLASTY 09/08/2018 EDY GOOD MD Ot V58.61 ANTICOAGULANTS,LT,CURRENT USE 09/08/2018 EDY GOOD MD Ot V58.69 OT MED,LT,CURRENT USE 09/08/2018 MAXIME DOS SANTOS QUALITY ASSURANCE GROUP LEADER Ot 729.5 PAIN IN LIMB 09/08/2018 MAXIME DOS SANTOS QUALITY ASSURANCE GROUP LEADER Ot 729.81 SWELLING OF LIMB 09/08/2018 EDY GOOD MD Ot 272.4 HYPERLIPIDEMIA NEC/NOS 09/08/2018 EDY GOOD MD Ot 401.9 HYPERTENSION NOS 09/08/2018 EDY GOOD MD Ot 427.31 ATRIAL FIBRILLATION 09/08/2018 EDY GOOD MD Ot 427.81 SINOATRIAL NODE DYSFUNCT 09/08/2018 ZACH MO-C Ot M25.472 EFFUSION, LEFT ANKLE 09/08/2018 ZACH MO-C Ot Z51.81 ENCOUNTER FOR THERAPEUTIC DRUG LEVEL MON 09/08/2018 ZACH MO-C Ot Z79.01 HALF-WAY (CURRENT) USE OF ANTICOAGULANT 09/08/2018 ZACH MO-C Ot Z79.899 OTHER HALF-WAY (CURRENT) DRUG THERAPY 09/08/2018 EDY GOOD MD Ot E78.5 HYPERLIPIDEMIA, UNSPECIFIED 09/08/2018 EDY GOOD MD Ot 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 09/08/2018 EDY GOOD MD, Ot I10 ESSENTIAL (PRIMARY) HYPERTENSION 09/08/2018 EDY GOOD MD, Ot I25.10 ATHSCL HEART DISEASE OF [place] CORONARY 09/08/2018 TREVER SWENSON, JOAQUÍN Baptiste Ot R00.2 PALPITATIONS 09/08/2018 JOAQUÍN PERERA MD Ot R42 DIZZINESS AND GIDDINESS 09/08/2018 JOHN KERNS MD, Ot E03.9 HYPOTHYROIDISM, UNSPECIFIED 09/08/2018 JOHN KERNS MD, Ot E78.00 PURE HYPERCHOLESTEROLEMIA, UNSPECIFIED 09/08/2018 JOHN KERNS MD, Ot I10 ESSENTIAL (PRIMARY) HYPERTENSION 09/08/2018 JOHN KERNS MD, Ot I48.91 UNSPECIFIED ATRIAL FIBRILLATION 09/08/2018 JOHN KERNS MD Ot R06.02 SHORTNESS OF BREATH 09/08/2018 JOHN KERNS MD, Ot Z79.01 FACTORY MACHINE COMPUTER OPERATOR (CURRENT) USE OF ANTICOAGULANT 09/08/2018 JOHN KERNS MD, Ot Z88.0 ALLERGY STATUS TO PENICILLIN 09/08/2018 JOHN KERNS MD, Ot Z95.0 PRESENCE OF CARDIAC PACEMAKER 09/08/2018 JOHN KERNS MD, Ot Z95.5 PRESENCE OF CORONARY ANGIOPLASTY IMPLANT 09/08/2018 JOHN KERNS MD, Ot Z98.890 OTHER SPECIFIED POSTPROCEDURAL STATES 09/11/2018 JOHN KERNS MD, Ot E03.9 HYPOTHYROIDISM, UNSPECIFIED 09/11/2018 JOHN KERNS MD Ot E78.00 PURE HYPERCHOLESTEROLEMIA, UNSPECIFIED 09/11/2018 JOHN KERNS MD Ot I10 ESSENTIAL (PRIMARY) HYPERTENSION 09/11/2018 JOHN KERNS MD Ot I48.91 UNSPECIFIED ATRIAL FIBRILLATION 09/11/2018 JOHN KERNS MD Ot R06.02 SHORTNESS OF BREATH 09/11/2018 JOHN KERNS MD Ot Z79.01 HALF-WAY (CURRENT) USE OF ANTICOAGULANT 09/11/2018 JOHN KERNS MD Ot Z88.0 ALLERGY STATUS TO PENICILLIN 09/11/2018 JOHN KERNS MD Ot Z95.0 PRESENCE OF CARDIAC PACEMAKER 09/11/2018 JOHN KERNS MD Ot Z95.5 PRESENCE OF CORONARY ANGIOPLASTY IMPLANT 09/11/2018 JOHN KERNS MD Ot Z98.890 OTHER SPECIFIED POSTPROCEDURAL STATES 09/15/2018 JOHN KERNS MD Ot E03.9 HYPOTHYROIDISM, UNSPECIFIED 09/15/2018 JOHN KERNS MD Ot E78.00 PURE HYPERCHOLESTEROLEMIA, UNSPECIFIED 09/15/2018 JOHN KERNS MD Ot I10 ESSENTIAL (PRIMARY) HYPERTENSION 09/15/2018 JOHN KERNS MD Ot I48.91 UNSPECIFIED ATRIAL FIBRILLATION 09/15/2018 JOHN KERNS MD Ot R06.02 SHORTNESS OF BREATH 09/15/2018 JOHN KERNS MD Ot Z79.01 HALF-WAY (CURRENT) USE OF ANTICOAGULANT 09/15/2018 JOHN KERNS MD Ot Z88.0 ALLERGY STATUS TO PENICILLIN 09/15/2018 JOHN KERNS MD Ot Z95.0 PRESENCE OF CARDIAC PACEMAKER 09/15/2018 JOHN KERNS MD Ot Z95.5 PRESENCE OF CORONARY ANGIOPLASTY IMPLANT 09/15/2018 JOHN KERNS MD Ot Z98.890 OTHER SPECIFIED POSTPROCEDURAL STATES 10/13/2018 KIM HERNANDEZ Ot E78.5 HYPERLIPIDEMIA, UNSPECIFIED 10/13/2018 KIM HERNANDEZ Ot I08.3 COMB RHEUMATIC DISORD OF [place], AORTIC 10/13/2018 KIM HERNANDEZ Ot I10 ESSENTIAL (PRIMARY) HYPERTENSION 10/13/2018 KIM HERNANDEZ Ot I25.10 ATHSCL HEART DISEASE OF [place] CORONARY 10/13/2018 KIM HERNANDEZ Ot I48.0 PAROXYSMAL ATRIAL FIBRILLATION 10/13/2018 KIM HERNANDEZ Ot K21.9 GASTRO-ESOPHAGEAL REFLUX DISEASE WITHOUT 11/01/2018 KIM HERNANDEZ Ot E78.5 HYPERLIPIDEMIA, UNSPECIFIED 11/01/2018 KIM HERNANDEZ Ot I08.3 COMB RHEUMATIC DISORD OF [place], AORTIC 11/01/2018 KIM HERNANDEZ Ot I10 ESSENTIAL (PRIMARY) HYPERTENSION 11/01/2018 KIM HERNANDEZ Ot I25.10 ATHSCL HEART DISEASE OF [place] CORONARY 11/01/2018 KIM HERNANDEZ Ot I48.0 PAROXYSMAL ATRIAL FIBRILLATION 11/01/2018 KIM HERNANDEZ Ot K21.9 GASTRO-ESOPHAGEAL REFLUX DISEASE WITHOUT Procedures Code Description Performed By Performed On 00.40 PROCEDURE ON SINGLE VESSEL 11/19/2007 00.45 INSERTION OF ONE VASCULAR STENT 11/19/2007 00.66 PERC TRANSLUMINAL CORON ANGIOPLASTY PTCA 11/19/2007 36.07 INSRT OF DRUG-ELUTING CORON ARTERY STENT 11/19/2007 37.22 LEFT HEART CARDIAC CATH 11/19/2007 88.53 LT HEART ANGIOCARDIOGRAM 11/19/2007 88.56 CORONAR ARTERIOGR-2 CATH 11/19/2007 88.42 CONTRAST AORTOGRAM 11/20/2007 37.22 LEFT HEART CARDIAC CATH 03/19/2013 88.53 LT HEART ANGIOCARDIOGRAM 03/19/2013 88.56 CORONAR ARTERIOGR-2 CATH 03/19/2013 Results Test Result Range PT panel in platelet poor plasma by coagulation assay - 09/08/18 09:13 Prothrombin time (PT) in platelet poor plasma by coagulation assay 32.9 s 12.2-14.7 INR in platelet poor plasma or blood by coagulation assay 3.2 0.8-1.4 Activated partial thromboplastin time (aPTT) in platelet poor plasma bycoagulation assay - 09/08/18 09:13 Activated partial thromboplastin time (aPTT) in platelet poor plasma bycoagulation assay 49 s 24-35 Complete blood count (CBC) with automated white blood cell (WBC) differential - 09/08/18 09:15 Blood leukocytes automated count (number/volume) 8.4 10*3/uL 4.3-11.0 Blood erythrocytes automated count (number/volume) 4.43 10*6/uL 4.35-5.85 Venous blood hemoglobin measurement (mass/volume) 13.0 g/dL 11.5-16.0 Blood hematocrit (volume fraction) 41 % 35-52 Automated erythrocyte mean corpuscular volume 92 [foz_us] 80-99 Automated erythrocyte mean corpuscular hemoglobin (mass per erythrocyte) 29 pg 25-34 Automated erythrocyte mean corpuscular hemoglobin concentration measurement ( mass/volume) 32 g/dL 32-36 Automated erythrocyte distribution width ratio 15.4 % 10.0-14.5 Automated blood platelet count (count/volume) 374 10*3/uL 130-400 Automated blood platelet mean volume measurement 9.1 [foz_us] 7.4-10.4 Automated blood neutrophils/100 leukocytes 72 % 42-75 Automated blood lymphocytes/100 leukocytes 15 % 12-44 Blood monocytes/100 leukocytes 9 % 0-12 Automated blood eosinophils/100 leukocytes 3 % 0-10 Automated blood basophils/100 leukocytes 1 % 0-10 Blood neutrophils automated count (number/volume) 6.0 10*3 1.8-7.8 Blood lymphocytes automated count (number/volume) 1.3 10*3 1.0-4.0 Blood monocytes automated count (number/volume) 0.8 10*3 0.0-1.0 Automated eosinophil count 0.3 10*3/uL 0.0-0.3 Automated blood basophil count (count/volume) 0.1 10*3/uL 0.0-0.1 Comprehensive metabolic panel - 09/08/18 09:15 Serum or plasma sodium measurement (moles/volume) 142 mmol/L 135-145 Serum or plasma potassium measurement (moles/volume) 3.8 mmol/L 3.6-5.0 Serum or plasma chloride measurement (moles/volume) 106 mmol/L 98-107 Carbon dioxide 22 mmol/L 21-32 Serum or plasma anion gap determination (moles/volume) 14 mmol/L 5-14 Serum or plasma urea nitrogen measurement (mass/volume) 18 mg/dL 7-18 Serum or plasma creatinine measurement (mass/volume) 1.16 mg/dL 0.60-1.30 Serum or plasma urea nitrogen/creatinine mass ratio 16 NRG Serum or plasma creatinine measurement with calculation of estimated glomerular filtration rate 45 NRG Serum or plasma glucose measurement (mass/volume) 172 mg/dL 70-105 Serum or plasma calcium measurement (mass/volume) 9.6 mg/dL 8.5-10.1 Serum or plasma total bilirubin measurement (mass/volume) 0.5 mg/dL 0.1-1.0 Serum or plasma alkaline phosphatase measurement (enzymatic activity/volume) 121 U/L 40-136 Serum or plasma aspartate aminotransferase measurement (enzymatic activity/ volume) 20 U/L 5-34 Serum or plasma alanine aminotransferase measurement (enzymatic activity/volume ) 18 U/L 0-55 Serum or plasma protein measurement (mass/volume) 7.8 g/dL 6.4-8.2 Serum or plasma albumin measurement (mass/volume) 4.2 g/dL 3.2-4.5 CALCIUM CORRECTED 9.4 mg/dL 8.5-10.1 Magnesium - 09/08/18 09:15 Magnesium 2.3 mg/dL 1.8-2.4 Serum or plasma lithium measurement (moles/volume) - 09/08/18 09:15 BNP level 306.0 pg/mL <100.0 THYROID STIMULATING HORMONE - 09/08/18 09:15 THYROID STIMULATING HORMONE 2.26 u[iU]/mL 0.35-4.94 Serum or plasma thyroxine (T4) free measurement (mass/volume) - 09/08/18 09:15 Serum or plasma thyroxine (T4) free measurement (mass/volume) 1.33 ng/dL 0.70-1.48 Encounters ACCT No. Visit Date/Time Discharge Status Pt. Type Provider Facility Loc./Unit Complaint [id number] 10/12/2018 12:48:00 10/12/2018 23:59:59 CLS Outpatient KIM HERNANDEZ [facility] CARD AFIB [id number] 09/21/2018 00:15:00 09/21/2018 23:59:59 CLS Preadmit EDY GOOD MD [facility] CR3 REHAB [id number] 08/30/2018 11:34:00 09/20/2018 00:01:00 DIS Outpatient EDY GOOD MD [facility] CR3 REHAB [id number] 09/08/2018 08:55:00 09/08/2018 14:20:00 DIS Emergency JOHN KERNS MD [facility] ER HEART FLUTTER;SOB [id number] 08/16/2018 10:30:00 08/16/2018 13:20:00 DIS Outpatient MAXIME DOS SANTOS APRN [facility] REHAB R SCIATICA [id number] 05/08/2018 00:09:00 05/08/2018 23:59:59 CLS Preadmit JOAQUÍN PERERA MD [facility] CARD DIZZINESS,PALPITATIONS [id number] 04/21/2018 12:14:00 04/21/2018 23:59:59 CLS Outpatient EDY GOOD MD [facility] CARD I35.0 AORTIC STENOSIS [id number] 03/25/2018 13:17:00 03/25/2018 23:59:59 CLS Outpatient ZACH MO [facility] LAB XR ANKLE LEFT, CBC BLOOD TEST,PROTIME [id number] 02/06/2018 10:01:00 03/07/2018 00:01:00 DIS Outpatient JOAQUÍN PERERA MD [facility] CARD DIZZINESS,PALPITATIONS [id number] 04/23/2015 09:41:00 04/24/2015 10:30:00 DIS Outpatient EDY GOOD MD [facility] CATH SSS BRADYCARDIA AFIB HTN HLP [id number] 04/17/2015 14:50:00 04/17/2015 23:59:59 CLS Outpatient EDY GOOD MD [facility] CARD AF HLD HTN SSS [id number] 12/11/2014 07:52:00 12/11/2014 23:59:59 CLS Outpatient MAXIME DOS SANTOS APRN [facility] RAD RT CALF PAIN/SWELING [id number] 10/30/2014 07:58:00 10/30/2014 23:59:59 CLS Outpatient EDY GOOD MD [facility] CATH AFIB [id number] 05/31/2014 09:00:00 05/31/2014 23:59:59 CLS Outpatient JOAQUÍN PERERA MD [facility] RAD ABN MAMMO [id number] 05/23/2014 10:39:00 05/23/2014 23:59:59 CLS Outpatient JOAQUÍN PERERA MD [facility] RAD SCREENING [id number] 03/15/2014 10:36:00 03/15/2014 23:59:59 CLS Outpatient EDY GOOD MD [facility] CARD AFIB,HTN [id number] 02/28/2014 14:15:00 02/28/2014 23:59:59 CLS Outpatient ALTHEA GE MD [facility] RAD HIP PAIN, R [id number] 02/04/2014 17:02:00 02/04/2014 23:59:59 CLS Outpatient LEVON, MAXIME R [employer] [facility] RAD BACK PAIN - RADIATES TO LEGS - BILAT [id number] 11/01/2013 07:48:00 11/01/2013 23:59:59 CLS Outpatient JOAQUÍN PERERA MD [facility] RAD COUGH X3 WKS [id number] 01/18/2013 13:49:00 04/18/2013 00:01:00 DIS Outpatient JOAQUÍN PERERA MD [facility] LAB HYPOTHROID,DIRREHEA, HYPOKELIMA [id number] 03/18/2013 03:20:00 03/20/2013 10:15:00 DIS Inpatient JOAQUÍN PERERA MD [facility] ICU A FIB, RVR, CP [id number] 02/21/2013 09:52:00 02/21/2013 23:59:59 CLS Outpatient EDY GOOD MD [facility] CARD [id number] 11/07/2018 07:04:00 ACT Emergency MOLLY ESCALANTE MD [facility] ER VAG BLEEDING [id number] 10/24/2015 16:05:00 Document Registration [id number] 10/24/2015 16:05:00 Document Registration [id number] 10/24/2015 16:05:00 Document Registration [id number] 10/24/2015 16:05:00 Document Registration [id number] 10/24/2015 16:05:00 Document Registration [id number] 10/24/2015 16:05:00 Document Registration [id number] 10/25/2014 11:12:00 Document Registration [id number] 10/20/2014 13:38:00 Document Registration [id number] 04/19/2013 00:00:00 Document Registration [id number] 11/28/2012 12:12:00 Document Registration [id number] 10/03/2012 11:30:00 Document Registration [id number] 07/04/2012 11:15:00 Document Registration [id number] 08/28/2011 14:20:00 Document Registration [id number] 11/26/2010 08:02:00 Document Registration [id number] 11/25/2010 08:23:00 Document Registration [id number] 10/20/2010 18:52:00 Document Registration [id number] 10/16/2010 14:45:00 Document Registration [id number] 07/31/2010 16:04:00 Document Registration [id number] 05/02/2010 10:33:00 Document Registration [id number] 02/17/2010 09:49:00 Document Registration [id number] 12/30/2009 11:36:00 Document Registration [id number] 12/24/2009 08:46:00 Document Registration [id number] 12/22/2009 08:47:00 Document Registration [id number] 06/16/2007 14:22:00 Document Registration [id number] 05/05/2007 11:11:00 Document Registration [id number] 12/23/2005 09:45:00 Document Registration [id number] 04/23/2015 10:03:52 ACT Document Registration
[2018-11-07 07:35] LABS: CLARITY,URINE CLEAR; COLOR,URINE YELLOW; GLUCOSE, URINE (UA) NEGATIVE (NEGATIVE); KETONES,URINE NEGATIVE (NEGATIVE); LEUKOCYTE ESTERASE ,URINE 3+ (NEGATIVE); NITRITE,URINE POSITIVE (NEGATIVE); PH,URINE 5 (5-9); PROTEIN,URINE 2+ (NEGATIVE); UROBILINOGEN,URINE NORMAL (NORMAL)
[2018-11-07 07:46] LABS: BILIRUBIN,URINE 1+ (NEGATIVE)
[2018-11-07 07:47] LABS: BACTERIA,URINE LARGE /HPF; SQUAMOUS EPITHELIAL CELL,UR 0-2 /HPF
[2018-11-07 07:52] LABS: BASOPHILS % (AUTO) 1 % (0-10); EOSINOPHILS # (AUTO) 0.2 10^3/uL (0.0-0.3); EOSINOPHILS % (AUTO) 2 % (0-10); HEMATOCRIT 39 % (35-52); HEMOGLOBIN 12.3 G/DL (11.5-16.0); LYMPHOCYTES # (AUTO) 1.7 X 10^3 (1.0-4.0); LYMPHOCYTES % (AUTO) 20 % (12-44); MEAN CORPUSCULAR HEMOGLOBIN 29 PG (25-34); MEAN CORPUSCULAR HGB CONC 32 G/DL (32-36); MEAN CORPUSCULAR VOLUME 93 FL (80-99); MEAN PLATELET VOLUME 9.1 FL (7.4-10.4); MONOCYTES # (AUTO) 0.8 X 10^3 (0.0-1.0); MONOCYTES % (AUTO) 10 % (0-12); NEUTROPHILS # (AUTO) 5.8 X 10^3 (1.8-7.8); NEUTROPHILS % (AUTO) 68 % (42-75); PLATELET COUNT 345 10^3/uL (130-400); RED CELL DISTRIBUTION WIDTH 14.6 % (10.0-14.5); WHITE BLOOD COUNT 8.5 10^3/uL (4.3-11.0)
[2018-11-07 08:08] LABS: INR 3.3 (0.8-1.4); PROTHROMBIN TIME PATIENT 35.3 SEC (12.2-14.7)
[2018-11-07 08:12] LABS: ALBUMIN 4.3 GM/DL (3.2-4.5); BILIRUBIN,TOTAL 0.4 MG/DL (0.1-1.0); CALCIUM 9.4 MG/DL (8.5-10.1); CREATININE SERUM 1.2 MG/DL (0.60-1.30); POTASSIUM 3.9 MMOL/L (3.6-5.0); TOTAL PROTEIN 7.5 GM/DL (6.4-8.2)
[2018-11-07] MEDS ORDERED: NS IV 1000 ML 1,000 ML IV SCH (08:21)
--- NOTE | 2018-11-07 08:27 | ED Abdominal Pain ---
General Chief Complaint: Abdominal/GI Problems Stated Complaint: VAG BLEEDING Nursing Triage Note: PT STATES CONSTIPATION THAT STARTED LAST WEEK, DIARRHEA FOR A MONTH, STARTED PASSING BLOOD IN HER STOOL, HAS A SAMPLE WITH HER. Sepsis Screen: No Definite Risk Source of Information: Patient Exam Limitations: No Limitations History of Present Illness Date Seen by Provider: Nov 07, 2018 Time Seen by Provider: 07:46 Initial Comments Here with report of bleeding from her bottom. Apparently started today. She's had diarrhea and constipation problems over the last week with diarrhea over the last month. She's been taking Lomotil. She is on Coumadin. Denies ever having problems like this before. Denies dysuria. Denies nausea or vomiting. Timing/Duration: 4-6 Hours, Changing Over Time Severity/Quality: Mild, Cramping Location: LLQ Radiation: No Radiation Activities at Onset: None Modifying Factors: Worsens With Defecating; Improves With Resting Associated Symptoms: No Back Pain, No Chest Pain, No Diaphoresis, No Fever/ Chills, No Nausea/Vomiting, No Shortness of Air; Weakness Allergies and Home Medications Allergies Coded Allergies: Penicillins (Verified Allergy, Unknown, 05/03/07) Home Medications Amiodarone Hcl 200 Mg Tab, 200 MG PO DAILY, (Reported) Amlodipine Besylate 5 Mg Tablet, 5 MG PO DAILY, (Reported) Atorvastatin 20 Mg Tablet, 20 MG PO HS, (Reported) Dabigatran Etexilate Mesylate 150 Mg Capsule, 150 MG PO BID, (Reported) Diltiazem HCl 240 Mg Cap.er.24h, 240 MG PO DAILY, (Reported) Hydrochlorothiazide 25 Mg Tablet, 25 MG PO DAILY, (Reported) Hydrocodone Bit/Acetaminophen 1 Each Tablet, 0.5-1 TAB PO Q4H PRN for PAIN, ( Reported) Levofloxacin 500 Mg Tablet, 500 MG PO DAILY Prescribed by: EDY GOOD on 04/24/15 0842 Levothyroxine Sodium 75 Mcg Tablet, 75 MCG PO DAILY, (Reported) Metoprolol Succinate 25 Mg Tab.er.24h, 25 MG PO DAILY Prescribed by: EDY GOOD on 04/24/15 0820 Valsartan 320 Mg Tablet, 320 MG PO DAILY, (Reported) Patient Home Medication List Home Medication List Reviewed: Yes Review of Systems Review of Systems Constitutional: see HPI; No chills, No fever; weakness EENTM: No Symptoms Reported Respiratory: No Symptoms Reported Cardiovascular: Denies Chest Pain; Lightheadedness; Denies Palpitations Gastrointestinal: Abdominal Pain (more left-sided), Constipated, Diarrhea, Rectal Bleeding; Denies Vomiting Genitourinary: No Symptoms Reported Musculoskeletal: no symptoms reported Skin: no symptoms reported All Other Systems Reviewed Negative Unless Noted: Yes Past Pqszthg-Obvukp-Xhcjre Hx Past Med/Social Hx: Reviewed Nursing Past Med/Soc Hx Patient Social History Alcohol Use: Denies Use Recreational Drug Use: No Smoking Status: Never a Smoker Recent Foreign Travel: No Contact w/Someone Who Travel: No Recent Infectious Disease Expo: No Recent Hopitalizations: No Immunizations Up To Date Tetanus Booster (TDap): Unknown PED Vaccines UTD: No Date of Pneumonia Vaccine: Apr 12, 2018 Date of Influenza Vaccine: Apr 12, 2018 Seasonal Allergies Seasonal Allergies: Yes Past Medical History Surgeries: Yes (RIGHT INGUINAL HERNIA REPAIR, 1979 RIGHT KNEE SURGERY, ANKLE 1999) Coronary Stent, Pacemaker Respiratory: No Tuberculosis Cardiac: Yes (PACEMAKER, VALVE REPLACED) Atrial Fibrillation, High Cholesterol, Hypertension Neurological: No Reproductive Disorders: No Female Reproductive Disorders: Denies Sexually Transmitted Disease: No HIV/AIDS: No Gastrointestinal: No Musculoskeletal: No Endocrine: Yes Hypothyroidsim Cancer: No Psychosocial: No Integumentary: No Blood Disorders: No Family Medical History Reviewed Nursing Family Hx Patient reports no known family medical history. No Pertinent Family Hx Physical Exam Vital Signs Vital Signs - First Documented 11/07/18 07:19 Temp 99.7 Pulse 82 Resp 20 B/P (MAP) 139/57 (84) Pulse Ox 96 O2 Delivery Room Air Capillary Refill : Less Than 3 Seconds Height/Weight/BMI Height: 5'9.00" Weight: 175lbs. 2.4oz. 79.111475fc; 26.14 BMI Method:Stated General Appearance: WD/WN, no apparent distress HEENT: PERRL/EOMI, pharynx normal Neck: full range of motion, supple Respiratory: lungs clear, normal breath sounds Cardiovascular: regular rate, rhythm, no murmur Gastrointestinal: soft, tenderness (left-sided mild) Rectal: No hemorrhoids; other (patient brought bloody stool with her) Extremities: non-tender, normal inspection Back: normal inspection, no CVA tenderness, no vertebral tenderness Neurologic/Psychiatric: alert, oriented x 3 Skin: normal color, warm/dry Focused Exam Lactate Level 11/07/18 08:30: Lactic Acid Level 0.63 Lactic Acid Level Laboratory Tests Test 11/07/18 08:30 Lactic Acid Level 0.63 MMOL/L (0.50-2.00) Progress/Results/Core Measures Results/Orders Lab Results Laboratory Tests Test 11/07/18 07:25 11/07/18 07:45 11/07/18 08:30 Range/Units Urine Color YELLOW Urine Clarity CLEAR Urine pH 5 5-9 Urine Specific [place] 1.025 H 1.016-1.022 Urine Protein 2+ H NEGATIVE Urine Glucose (UA) NEGATIVE NEGATIVE Urine Ketones NEGATIVE NEGATIVE Urine Nitrite POSITIVE H NEGATIVE Urine Bilirubin 1+ H NEGATIVE Urine Urobilinogen NORMAL NORMAL MG/DL Urine Leukocyte Esterase 3+ H NEGATIVE Urine RBC (Auto) 5+ H NEGATIVE Urine RBC 2-5 H /HPF Urine WBC 10-25 H /HPF Urine Squamous Epithelial Cells 0-2 /HPF Urine Crystals NONE /LPF Urine Bacteria LARGE H /HPF Urine Casts NONE /LPF Urine Mucus NEGATIVE /LPF Urine Culture Indicated YES White Blood Count 8.5 4.3-11.0 10^3/uL Red Blood Count 4.21 L 4.35-5.85 10^6/uL Hemoglobin 12.3 11.5-16.0 G/DL Hematocrit 39 35-52 % Mean Corpuscular Volume 93 80-99 FL Mean Corpuscular Hemoglobin 29 25-34 PG Mean Corpuscular Hemoglobin Concent 32 32-36 G/DL Red Cell Distribution Width 14.6 H 10.0-14.5 % Platelet Count 345 130-400 10^3/uL Mean Platelet Volume 9.1 7.4-10.4 FL Neutrophils (%) (Auto) 68 42-75 % Lymphocytes (%) (Auto) 20 12-44 % Monocytes (%) (Auto) 10 0-12 % Eosinophils (%) (Auto) 2 0-10 % Basophils (%) (Auto) 1 0-10 % Neutrophils # (Auto) 5.8 1.8-7.8 X 10^3 Lymphocytes # (Auto) 1.7 1.0-4.0 X 10^3 Monocytes # (Auto) 0.8 0.0-1.0 X 10^3 Eosinophils # (Auto) 0.2 0.0-0.3 10^3/uL Basophils # (Auto) 0.0 0.0-0.1 10^3/uL Prothrombin Time 35.3 H 12.2-14.7 SEC INR Comment 3.3 H 0.8-1.4 Activated Partial Thromboplast Time 49 H 24-35 SEC Sodium Level 142 135-145 MMOL/L Potassium Level 3.9 3.6-5.0 MMOL/L Chloride Level 106 98-107 MMOL/L Carbon Dioxide Level 26 21-32 MMOL/L Anion Gap 10 5-14 MMOL/L Blood Urea Nitrogen 22 H 7-18 MG/DL Creatinine 1.20 0.60-1.30 MG/DL Estimat Glomerular Filtration Rate 43 BUN/Creatinine Ratio 18 Glucose Level 98 70-105 MG/DL Calcium Level 9.4 8.5-10.1 MG/DL Corrected Calcium 9.2 8.5-10.1 MG/DL Total Bilirubin 0.4 0.1-1.0 MG/DL Aspartate Amino Transf (AST/SGOT) 21 5-34 U/L Alanine Aminotransferase (ALT/SGPT) 16 0-55 U/L Alkaline Phosphatase 114 40-136 U/L Total Protein 7.5 6.4-8.2 GM/DL Albumin 4.3 3.2-4.5 GM/DL Lactic Acid Level 0.63 0.50-2.00 MMOL/L My Orders Orders - MOLLY ESCALANTE MD Ua Culture If Indicated (11/07/18 07:23) Cbc With Automated Diff (11/07/18 07:36) Comprehensive Metabolic Panel (11/07/18 07:36) Protime With Inr (11/07/18 07:36) Partial Thromboplastin Time (11/07/18 07:36) Saline Lock/Iv-Start (11/07/18 07:36) Urine Culture (11/07/18 07:25) Saline Lock/Iv-Start (11/07/18 08:21) Ns Iv 1000 Ml (Sodium Chloride 0.9%) (11/07/18 08:21) Ct Abdomen/Pelvis Wo (11/07/18 08:21) Lactic Acid Analyzer (11/07/18 08:21) Blood Culture (11/07/18 08:21) Ceftriaxone For Iv Use (Rocephin For I (11/07/18 10:30) Vital Signs/I&O 11/07/18 07:19 Temp 99.7 Pulse 82 Resp 20 B/P (MAP) 139/57 (84) Pulse Ox 96 O2 Delivery Room Air Blood Pressure Mean: 84 Progress Progress Note : Progress Note Seen and evaluated. IV, labs, UA ordered. We will check coags due to Coumadin use. UA grossly positive so we will go ahead and get blood cultures and lactic acid. CT abdomen pelvis ordered but without contrast due to current GFR. Normal saline 1 L bolus ordered. Monitor patient. 1040: We did do blood cultures and lactic acid due to the positive urinary tract infection. Lactic acid negative. CT does show diverticulosis with an INR 3.3. She does have multiple findings including urinary tract infection and bleeding diverticulosis. Due to this, patient will need admission. 1035 I did discuss the case with Dr. Gonzales and he accepts patient for admission, inpatient status and I did consult Dr. Joel. Diagnostic Imaging Diagonstic Imaging: CT Plain Films/CT/US/NM/MRI: abdomen, pelvis Comments NAME: JAZMÍN [facility] REC#: [id number] PT STATUS: REG ER : 1940 PHYSICIAN: MOLLY ESCALANTE MD ADMIT DATE: 11/07/18/ER Signed Date of Exam: 11/07/18 CT ABDOMEN/PELVIS WO PROCEDURE: CT abdomen and pelvis without contrast. TECHNIQUE: Multiple contiguous axial images were obtained through the abdomen and pelvis without the use of intravenous contrast. Auto Exposure Controls were utilized during the CT exam to meet ALARA standards for radiation dose reduction. INDICATION: Rectal bleeding. COMPARISON: None available. FINDINGS: Evaluation of the abdominal viscera is mildly limited without contrast. Lower chest: The lung bases are clear. No pericardial or pleural effusion. Cardiomegaly is present. Peritoneum: No free intraperitoneal air or fluid. Liver and biliary system: Unenhanced liver is normal. The gallbladder is normal. No biliary duct dilation. Spleen and Pancreas: Spleen is normal. Unenhanced pancreas is grossly normal. Adrenals: Normal. tract: No renal or ureteral calculi. No obstructive uropathy. Subcentimeter low-attenuation in the periphery of the mid left kidney is likely cysts but incompletely assessed due to small size. GI tract: Stomach is decompressed. No bowel obstruction. The distal small bowel loops and colon are fluid-filled. Appendix is not seen with certainty but there are no features to suggest acute appendicitis. Sigmoid colon diverticulosis without surrounding inflammation to indicate diverticulitis. Vasculature and Lymph nodes: Normal caliber aorta with extensive calcified plaquing. No abdominal or pelvic lymphadenopathy. Numerous small mesenteric root lymph nodes are likely reactive in nature due to enteritis. Musculoskeletal: No concerning osseous lesion. IMPRESSION: 1. Sigmoid colon diverticulosis without surrounding inflammation to indicate diverticulitis. 2. Fluid-filled but nondilated loops of small bowel and colon can be seen with enteritis. Dictated by: Dictated on workstation # [id number] Dict: 11/07/18 0909 Trans: 11/07/18941 Interpreted by: AME CIFUENTES MD Electronically signed by: AME CIFUENTES MD 11/07/18941 Departure Communication (Admissions) Time/Spoke to Admitting Phy: 10:34 Time/Spoke to Consulting Phy: 10:35 Impression Primary Impression: Urinary tract infection Qualified Codes: N30.00 - Acute cystitis without hematuria Additional Impression: Diverticulosis of colon with hemorrhage Disposition: ADMITTED INPATIENT Condition: Stable Admissions Decision to Admit Reason: Admit from ER (General) Decision to Admit/Date: Nov 07, 2018 Time/Decision to Admit Time: 10:34 Departure-Patient Inst. Referrals: JOAQUÍN PERERA MD (PCP/Family) Primary Care Physician MOLLY ESCALANTE MD Nov 07, 2018 08:27
--- NOTE | 2018-11-07 09:19 | Diagnostic Imaging Report ---
PROCEDURE: CT abdomen and pelvis without contrast. TECHNIQUE: Multiple contiguous axial images were obtained through the abdomen and pelvis without the use of intravenous contrast. Auto Exposure Controls were utilized during the CT exam to meet ALARA standards for radiation dose reduction. INDICATION: Rectal bleeding. COMPARISON: None available. FINDINGS: Evaluation of the abdominal viscera is mildly limited without contrast. Lower chest: The lung bases are clear. No pericardial or pleural effusion. Cardiomegaly is present. Peritoneum: No free intraperitoneal air or fluid. Liver and biliary system: Unenhanced liver is normal. The gallbladder is normal. No biliary duct dilation. Spleen and Pancreas: Spleen is normal. Unenhanced pancreas is grossly normal. Adrenals: Normal. tract: No renal or ureteral calculi. No obstructive uropathy. Subcentimeter low-attenuation in the periphery of the mid left kidney is likely cysts but incompletely assessed due to small size. GI tract: Stomach is decompressed. No bowel obstruction. The distal small bowel loops and colon are fluid-filled. Appendix is not seen with certainty but there are no features to suggest acute appendicitis. Sigmoid colon diverticulosis without surrounding inflammation to indicate diverticulitis. Vasculature and Lymph nodes: Normal caliber aorta with extensive calcified plaquing. No abdominal or pelvic lymphadenopathy. Numerous small mesenteric root lymph nodes are likely reactive in nature due to enteritis. Musculoskeletal: No concerning osseous lesion. IMPRESSION: 1. Sigmoid colon diverticulosis without surrounding inflammation to indicate diverticulitis. 2. Fluid-filled but nondilated loops of small bowel and colon can be seen with enteritis. Dictated by: Dictated on workstation # [id number]
[2018-11-07] MEDS ORDERED: cefTRIAXone FOR IV USE 1,000 MG in WATER (STERILE) FOR INJECTION 10 ML IV ONE (10:30)
--- NOTE | 2018-11-07 11:04 | NUR ---
REPORT TAKEN FROM NADIYA KEITA AT THIS, THIS RN WILL ASSUME CARE OF THIS PATIENT WHEN SHE ARRIVES TO THIS FLOOR.
--- NOTE | 2018-11-07 11:06 | NUR ---
JAZMÍN GRIDER admitted to room 428-1, with an admitting diagnosis of uti and diverticulitis, on 11/07/18 from ER via cart, accompanied by ed staff. JAZMÍN GRIDER introduced to surroundings, call light, bed controls, phone, TV, temperature control, lights, meal times, smoking policy, visitor policy, side rail policy, bathrooms and showers. Patient Rights given to patient in the handbook. JAZMÍN GRIDER verbalizes understanding that [facility] is not responsible for the loss or damage to any personal effects or valuables that are kept in the patients posession during their hospitalization. JAZMÍN GRIDER verbalizes understanding of Interdisciplinary Patient Education. Patient and/or family were informed about the Rapid Response Team and its purpose.
--- OUTSIDE RECORDS SUMMARY | 2018-11-07 11:06 | XMS REPORT | Continuity of Care Document ---
Author Author [facility] Organization [facility] Address Unknown Phone Unavailable Allergies Active Description Code Type Severity Reaction Onset Reported/Identified Relationship to Patient Clinical Status Yes Penicillins [id number] Drug Allergy Unknown N/A 05/03/2007 Medications There [...] PERERA MD Ot 414.01 CORONARY ATHEROSCLEROSIS OF [place] CORON 03/20/2013 JOAQUÍN PERERA MD Ot 424.1 [...] MD Ot V58.69 01/06/2015 MAXIME DOS SANTOS PATROL MAN Ot 729.5 01/06/2015 MAXIME DOS SANTOS PATROL MAN Ot 729.81 01/21/2015 MAXIME DOS SANTOS PATROL MAN Ot 729.5 01/21/2015 MAXIME DOS SANTOS PATROL MAN Ot 729.81 04/24/2015 EDY GOOD MD Ot 244.9 HYPOTHYROIDISM NOS 04/24/2015 EDY GOOD MD Ot 272.4 HYPERLIPIDEMIA NEC/NOS 04/24/2015 EDY GOOD MD Ot 401.9 HYPERTENSION NOS 04/24/2015 EDY GOOD MD Ot 414.01 CORONARY ATHEROSCLEROSIS OF [place] CORON 04/24/2015 EDY GOOD MD Ot 424.1 [...] MD Ot 786.2 10/24/2015 MAXIME DOS SANTOS PATROL MAN Ot 722.52 10/24/2015 FLORENTINO SWENSON, EDY Rodríguez [...] APRN Ot 729.5 10/24/2015 MAXIME DOS SANTOS PATROL MAN Ot 729.81 10/24/2015 FLORENTINO SWENSON, EDY J [...] OTH MED,LT,CURRENT USE 02/06/2018 MAXIME DOS SANTOS PATROL MAN Ot 729.5 PAIN IN LIMB 02/06/2018 MAXIME DOS SANTOS PATROL MAN Ot 729.81 SWELLING OF LIMB 02/06/2018 EDY GOOD MD Ot 272.4 HYPERLIPIDEMIA NEC/NOS 02/06/2018 EDY GOOD MD Ot 401.9 HYPERTENSION NOS 02/06/2018 EYD GOOD MD Ot 427.31 ATRIAL FIBRILLATION 02/06/2018 EDY GOOD MD Ot 427.81 SINOATRIAL NODE DYSFUNCT 03/07/2018 JOAQUÍN PERERA MD Ot R00.2 PALPITATIONS 03/07/2018 JOAQUÍN PERERA MD Ot R42 DIZZINESS AND GIDDINESS 03/28/2018 ZACH MO APPLIED BIOLOGY PROFESSOR-C Ot M25.472 EFFUSION, LEFT ANKLE 03/28/2018 ZACH MO APPLIED BIOLOGY PROFESSOR-C Ot Z51.81 ENCOUNTER FOR THERAPEUTIC DRUG LEVEL [facility] 03/28/2018 ZACH MO-C Ot Z79.01 MITER CUTTER (CURRENT) USE OF ANTICOAGULANT 03/28/2018 ZACH MO APPLIED BIOLOGY PROFESSOR-C Ot Z79.899 OTHER SNF (CURRENT) DRUG THERAPY 03/28/2018 JOAQUÍN PERERA MD [...] MD Ot I25.10 ATHSCL HEART DISEASE OF [place] CORONARY 04/26/2018 ZACH MO APPLIED BIOLOGY PROFESSOR-C Ot M25.472 EFFUSION, LEFT ANKLE 04/26/2018 ZACH MO APPLIED BIOLOGY PROFESSOR-C Ot Z51.81 ENCOUNTER FOR THERAPEUTIC DRUG LEVEL MON 04/26/2018 ZACH MO APPLIED BIOLOGY PROFESSOR-C Ot Z79.01 MITER CUTTER (CURRENT) USE OF ANTICOAGULANT 04/26/2018 EMERSON MOA APPLIED BIOLOGY PROFESSOR-C Ot Z79.899 OTHER SNF (CURRENT) DRUG THERAPY 05/03/2018 ZACH MO APPLIED BIOLOGY PROFESSOR-C Ot M25.472 EFFUSION, LEFT ANKLE 05/03/2018 EMERSON MOA APPLIED BIOLOGY PROFESSOR-C Ot Z51.81 ENCOUNTER FOR THERAPEUTIC DRUG LEVEL MON 05/03/2018 ZACH MO APPLIED BIOLOGY PROFESSOR-C Ot Z79.01 MITER CUTTER (CURRENT) USE OF ANTICOAGULANT 05/03/2018 EMERSON MOA APPLIED BIOLOGY PROFESSOR-C Ot Z79.899 OTHER MITER CUTTER (CURRENT) DRUG THERAPY 05/08/2018 TREVER SWENSON, JOAQUÍN [...] MD Ot I25.10 ATHSCL HEART DISEASE OF [place] CORONARY 05/17/2018 EDY GOOD MD Ot E78.5 HYPERLIPIDEMIA, UNSPECIFIED 05/17/2018 EDY GOOD MD Ot 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 05/17/2018 EDY GOOD MD Ot I10 ESSENTIAL (PRIMARY) HYPERTENSION 05/17/2018 EDY GOOD MD Ot I25.10 ATHSCL HEART DISEASE OF [place] CORONARY 07/12/2018 EDY GOOD MD Ot 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 07/12/2018 EDY GOOD MD Ot 397.0 TRICUSPID VALVE DISEASE 07/12/2018 EDY GOOD MD Ot 429.3 CARDIOMEGALY 07/12/2018 Ot 244.9 HYPOTHYROIDISM NOS 07/12/2018 Ot 276.8 HYPOPOTASSEMIA 07/12/2018 Ot 787.91 DIARRHEA 07/12/2018 Ot V58.69 OTH MED,LT, CURRENT USE 07/12/2018 JOAQUÍN PERERA MD Ot 786.2 COUGH 07/12/2018 MAXIME DOS SANTOS PATROL MAN Ot 722.52 LUMB/LUMBOSAC DISC DEGEN 07/12/2018 EDY [...] GOOD MD Ot V58.61 ANTICOAGULANTS,LT,CURRENT USE 07/12/2018 EDY GOOD MD Ot V58.69 OTH MED,LT,CURRENT USE 07/12/2018 MAXIME DOS SANTOS PATROL MAN Ot 729.5 PAIN IN LIMB 07/12/2018 MAXIME DOS SANTOS APRN Ot 729.81 SWELLING OF LIMB 07/12/2018 EDY GOOD MD Ot 272.4 HYPERLIPIDEMIA NEC/NOS 07/12/2018 EDY GOOD MD Ot 401.9 HYPERTENSION NOS 07/12/2018 EDY GOOD MD Ot 427.31 ATRIAL FIBRILLATION 07/12/2018 EDY GOOD MD Ot 427.81 SINOATRIAL NODE DYSFUNCT 07/12/2018 ZACH MO APPLIED BIOLOGY PROFESSOR-C Ot M25.472 EFFUSION, LEFT ANKLE 07/12/2018 ZACH MO APPLIED BIOLOGY PROFESSOR-C Ot Z51.81 ENCOUNTER FOR THERAPEUTIC DRUG LEVEL MON 07/12/2018 ZACH MO APPLIED BIOLOGY PROFESSOR-C Ot Z79.01 SNF (CURRENT) USE OF ANTICOAGULANT 07/12/2018 ZACH MO APPLIED BIOLOGY PROFESSOR-C Ot Z79.899 OTHER MITER CUTTER (CURRENT) DRUG THERAPY 07/12/2018 EDY GOOD MD Ot E78.5 HYPERLIPIDEMIA, UNSPECIFIED 07/12/2018 EDY GOOD MD Ot 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 07/12/2018 EDY GOOD MD Ot I10 ESSENTIAL (PRIMARY) HYPERTENSION 07/12/2018 EDY GOOD MD Ot I25.10 ATHSCL HEART DISEASE OF [place] CORONARY 07/12/2018 JOAQUÍN PERERA MD Ot R00.2 [...] GOOD MD Ot 427.31 ATRIAL FIBRILLATION 09/08/2018 ALTHEA GE MD Ot 719.45 JOINT PAIN-PELVIS 09/08/2018 JOAUQÍN PERERA MD Ot V76.12 OT SCREEN MAMMO-MALIGN [...] OT MED,LT,CURRENT USE 09/08/2018 MAXIME DOS SANTOS PATROL MAN Ot 729.5 PAIN IN LIMB 09/08/2018 MAXIME DOS SANTOS PATROL MAN Ot 729.81 SWELLING OF LIMB 09/08/2018 EDY GOOD MD Ot 272.4 HYPERLIPIDEMIA NEC/NOS 09/08/2018 EDY GOOD MD Ot 401.9 HYPERTENSION NOS 09/08/2018 EDY GOOD MD Ot 427.31 ATRIAL FIBRILLATION 09/08/2018 EDY GOOD MD Ot 427.81 SINOATRIAL NODE DYSFUNCT 09/08/2018 ZACH MO-C Ot M25.472 EFFUSION, LEFT ANKLE 09/08/2018 ZACH MO-C Ot Z51.81 ENCOUNTER FOR THERAPEUTIC DRUG LEVEL MON 09/08/2018 ZACH MO-C Ot Z79.01 SNF (CURRENT) USE OF ANTICOAGULANT 09/08/2018 ZACH MO-C Ot Z79.899 OTHER SNF (CURRENT) DRUG THERAPY 09/08/2018 EDY GOOD MD Ot E78.5 HYPERLIPIDEMIA, UNSPECIFIED 09/08/2018 EDY GOOD MD Ot 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 09/08/2018 EDY GOOD MD, Ot I10 ESSENTIAL (PRIMARY) HYPERTENSION 09/08/2018 EDY GOOD MD, Ot I25.10 ATHSCL HEART DISEASE OF [place] CORONARY 09/08/2018 TREVER SWENSON, JOAQUÍN Baptiste Ot [...] BREATH 09/08/2018 JOHN KERNS MD, Ot Z79.01 MITER CUTTER (CURRENT) USE OF ANTICOAGULANT 09/08/2018 JOHN KERNS [...] BREATH 09/11/2018 JOHN KERNS MD Ot Z79.01 SNF (CURRENT) USE OF ANTICOAGULANT 09/11/2018 JOHN KERNS [...] BREATH 09/15/2018 JOHN KERNS MD Ot Z79.01 SNF (CURRENT) USE OF ANTICOAGULANT 09/15/2018 JOHN KERNS [...] HERNANDEZ Ot I25.10 ATHSCL HEART DISEASE OF [place] CORONARY 10/13/2018 KIM HERNANDEZ Ot I48.0 PAROXYSMAL ATRIAL FIBRILLATION 10/13/2018 KIM HERNANDEZ Ot K21.9 GASTRO-ESOPHAGEAL REFLUX DISEASE WITHOUT 11/01/2018 KIM HERNANDEZ Ot E78.5 HYPERLIPIDEMIA, UNSPECIFIED 11/01/2018 KIM HERNANDEZ Ot I08.3 COMB RHEUMATIC DISORD OF [place], AORTIC 11/01/2018 KIM HERNANDEZ Ot I10 ESSENTIAL (PRIMARY) HYPERTENSION 11/01/2018 KIM HERNANDEZ Ot I25.10 ATHSCL HEART DISEASE OF [place] CORONARY 11/01/2018 KIM HERNANDEZ Ot I48.0 PAROXYSMAL [...] Status Pt. Type Provider Facility Loc./Unit Complaint [id number] 10/12/2018 12:48:00 10/12/2018 23:59:59 CLS Outpatient KIM HERNANDEZ [facility] CARD AFIB [id number] 09/21/2018 00:15:00 09/21/2018 23:59:59 CLS Preadmit EDY GOOD MD [facility] CR3 REHAB [id number] 08/30/2018 11:34:00 09/20/2018 00:01:00 DIS Outpatient EDY GOOD MD [facility] CR3 REHAB [id number] 09/08/2018 08:55:00 09/08/2018 14:20:00 DIS Emergency JOHN KERNS MD [facility] ER HEART FLUTTER;SOB [id number] 08/16/2018 10:30:00 08/16/2018 13:20:00 DIS Outpatient MAXIME DOS SANTOS APRN [facility] REHAB R SCIATICA [id number] 05/08/2018 00:09:00 05/08/2018 23:59:59 CLS Preadmit JOAQUÍN PERERA MD [facility] CARD DIZZINESS,PALPITATIONS [id number] 04/21/2018 12:14:00 04/21/2018 23:59:59 CLS Outpatient EDY GOOD MD [facility] CARD I35.0 AORTIC STEN[place]IS [id number] 03/25/2018 13:17:00 03/25/2018 23:59:59 CLS Outpatient ZACH MO [facility] LAB XR ANKLE LEFT, CBC BLOOD TEST,PROTIME [id number] 02/06/2018 10:01:00 03/07/2018 00:01:00 DIS Outpatient JOAQUÍN PERERA MD [facility] CARD DIZZINESS,PALPITATIONS [id number] 04/23/2015 09:41:00 04/24/2015 10:30:00 DIS Outpatient EDY GOOD MD [facility] CATH SSS BRADYCARDIA AFIB HTN HLP [id number] 04/17/2015 14:50:00 04/17/2015 23:59:59 CLS Outpatient EDY GOOD MD [facility] CARD AF HLD HTN SSS [id number] 12/11/2014 07:52:00 12/11/2014 23:59:59 CLS Outpatient MAXIME DOS SANTOS APRN [facility] RAD RT CALF PAIN/SWELING [id number] 10/30/2014 07:58:00 10/30/2014 23:59:59 CLS Outpatient EDY GOOD MD [facility] CATH AFIB [id number] 05/31/2014 09:00:00 05/31/2014 23:59:59 CLS Outpatient JOAQUÍN PREERA MD [facility] RAD ABN MAMMO [id number] 05/23/2014 10:39:00 05/23/2014 23:59:59 CLS Outpatient JOAQUÍN PERERA MD [facility] RAD SCREENING [id number] 03/15/2014 10:36:00 03/15/2014 23:59:59 CLS Outpatient EDY GOOD MD [facility] CARD AFIB,HTN [id number] 02/28/2014 14:15:00 02/28/2014 23:59:59 CLS Outpatient ALTHEA GE MD [facility] RAD HIP PAIN, R [id number] 02/04/2014 17:02:00 02/04/2014 23:59:59 CLS Outpatient LEVON, MAXIME R PATROL MAN [facility] RAD BACK PAIN - RADIATES TO LEGS - BILAT [id number] 11/01/2013 07:48:00 11/01/2013 23:59:59 CLS Outpatient JOAQUÍN PERERA MD [facility] RAD COUGH X3 WKS [id number] 01/18/2013 13:49:00 04/18/2013 00:01:00 DIS Outpatient JOAQUÍN PERERA MD [facility] LAB HYPOTHROID,DIRREHEA, HYPOKELIMA [id number] 03/18/2013 03:20:00 03/20/2013 10:15:00 DIS Inpatient JOAQUÍN PERERA MD [facility] ICU A FIB, RVR, CP [id number] 02/21/2013 09:52:00 02/21/2013 23:59:59 CLS Outpatient EDY GOOD MD [facility] CARD [id number] 11/07/2018 07:04:00 ACT Emergency MOLLY ESCALANTE MD [facility] ER VAG BLEEDING [id number] 10/24/2015 16:05:00 Document Registration [id number] 10/24/2015 16:05:00 Document Registration [id number] 10/24/2015 16:05:00 Document Registration [id number] 10/24/2015 16:05:00 Document Registration [id number] 10/24/2015 16:05:00 Document Registration [id number] 10/24/2015 16:05:00 Document Registration [id number] 10/25/2014 11:12:00 Document Registration [id number] 10/20/2014 13:38:00 Document Registration [id number] 04/19/2013 00:00:00 Document Registration [id number] 11/28/2012 12:12:00 Document Registration [id number] 10/03/2012 11:30:00 Document Registration [id number] 07/04/2012 11:15:00 Document Registration [id number] 08/28/2011 14:20:00 Document Registration [id number] 11/26/2010 08:02:00 Document Registration [id number] 11/25/2010 08:23:00 Document Registration [id number] 10/20/2010 18:52:00 Document Registration [id number] 10/16/2010 14:45:00 Document Registration [id number] 07/31/2010 16:04:00 Document Registration [id number] 05/02/2010 10:33:00 Document Registration [id number] 02/17/2010 09:49:00 Document Registration [id number] 12/30/2009 11:36:00 Document Registration [id number] 12/24/2009 08:46:00 Document Registration [id number] 12/22/2009 08:47:00 Document Registration [id number] 06/16/2007 14:22:00 Document Registration [id number] 05/05/2007 11:11:00 Document Registration [id number] 12/23/2005 09:45:00 Document Registration [id number] 04/23/2015 10:03:52 ACT Document Registration
--- NOTE | 2018-11-07 11:20 | NUR ---
PATIENT TO FORTH FLOOR ROM 428-1 AT THIS TIME, ACCOMPANIED BY ED STAFF Ana Paula ROWLAND RN.
[2018-11-07 11:31] VITALS: BP 190/80
[2018-11-07] MEDS ORDERED: CATHETER FLUSH 10 ML SYR IV PRN (11:45)
[2018-11-07] MEDS: NS IV 1000 ML 1,000 ML IV SCH (11:54)
[2018-11-07 12:00] VITALS: BP 146/70
[2018-11-07] MEDS ORDERED: WARF2TAB PO (12:04)
[2018-11-07] MEDS ORDERED: CARV12.53 PO (12:04)
[2018-11-07] MEDS ORDERED: ASPI-983 PO (12:04)
[2018-11-07] MEDS ORDERED: AMIO200T4 PO (12:04)
[2018-11-07] MEDS ORDERED: AMLO5TAB9 PO (12:04)
[2018-11-07] MEDS ORDERED: VALS320T15 PO (12:04)
[2018-11-07] MEDS ORDERED: LEVO75TA6 PO (12:04)
[2018-11-07] MEDS ORDERED: FURO20TA4 PO (12:04)
[2018-11-07] MEDS ORDERED: ATOR20TA66 PO (12:04)
[2018-11-07] MEDS ORDERED: POTA10CA43 PO (12:04)
[2018-11-07] MEDS ORDERED: WARF4TAB70 PO ×2 (12:11→12:32)
[2018-11-07] MEDS ORDERED: VALS160T29 PO (12:11)
[2018-11-07] MEDS ORDERED: POTA20TA15 PO (12:11)
[2018-11-07 12:24] VITALS: BP 139/57
[2018-11-07] MEDS ORDERED: RT-ALBUTEROL/IPRATROPIUM 3 ML (DUONEB) VIAL INH PRN (12:30)
[2018-11-07] MEDS ORDERED: GABA-486 PO (12:32)
--- NOTE | 2018-11-07 12:50 | NUR ---
SPOKE WITH THE PATIENT ABOUT HER MEDICATIONS. SHE HAD A LIST WITH HER AND I CALLED [facility] FOR A LIST OF RECENTLY FILLED MEDICATIONS. [place] FILLED: 11-04-18 VALSARTAN 160MG 2 DAILY #60 (SHE THINKS SHE ONLY TAKES 1 DAILY) 11-04-18 GABAPENTIN 100MG BID #60 (SHE THINKS SHE TAKES 2 AM) 10-30-18 WARFARIN 4MG DAILY #90 (TAKES 1 EVERYDAY EXCEPT TUESDAY TAKES 1.5 TABS) 10-30-18 DILTIAZEM ER 240MG CAP DAILY #90 10-30-18 LASIX 20MG DAILY #30 (TAKES AT HS) 10-16-18 LOSARTAN 100MG DAILY #30 (DOES NOT THINK SHE IS CURRENTLY TAKING) 10-16-18 LEVOTHYROXINE 75MCG DAILY #90 09-12-18 NORVASC 5MG HS #90 (TAKES IN AM) 08-27-18 AMIODARONE 200MG 1/2 DAILY #45 07-27-18 COREG 12.5MG BID #60 (IF SHE IS CURRENTLY TAKING ONLY TAKES ONE DAILY) 04-18-18 POTASSIUM 20MEQ 2 DAILY PRN #180 (STATES SHE ALWAYS TAKES 1 SOMETIMES DOES NOT TAKE THE OTHER BECAUSE THEY ARE HARD TO SWALLOW AND THEY GET CAUGHT IN HER THROAT) SHE TAKES ASPIRIN 81MG DAILY OTC BECAUSE THERE ARE SOME DISCREPANCIES WITH HER LIST AND WHAT HAS BEEN FILLED AT [facility] I HAVE NOT REVIEWED ALL OF THE MEDICATIONS. SHE KNOWS THEM MORE BY THEIR SHAPE, SIZE, AND COLOR THAN THEIR NAME AND IS UNCERTAIN EXACTLY WHICH SHE IS TAKING WHAT WAY. HER IS GOING TO BRING HER PILL BOTTLES IN IN THE MORNING SO WE CAN GET A MORE ACCURATE LIST OF WHAT SHE IS TAKING AT HOME. I WILL UPDATE THE MED REC AT THAT TIME. Addendum: 11/08/18 at 1054 by HAMIDA JENKINS [facility] PATIENTS BROUGHT IN ALL OF HER MEDICATION BOTTLES THIS MORNING. THERE IS NO CARVEDILOL BOTTLE IN THE BOX AND GIVEN ITS SIGNIFICANTLY PAST DUE FILL DATE I REMOVED IT FORM THE MED REC. THE PATIENT STATES IF IT IS NOT IN HER BOX OF BOTTLES SHE IS NOT TAKING IT AND SHE MUST JUST NEED TO UPDATE HER LIST. HER POTASSIUM BOTTLE IS DATED 04-18-18 SO IT IS PAST DUE FOR REFILL. SHE STATES SHE HAS BEEN TAKING THEM DAILY FOR THE PAST SEVERAL WEEKS BUT IN THE BEGINNING SHE USED IT MORE PRN. SHE DOES VERIFY SHE HAS ONLY BEEN TAKING 1 TAB DAILY OF THE VALSARTAN, SHE DID NOT REALIZE IT WAS PRESCRIBED 2 DAILY, SHE HAS TWO BOTTLES OF THAT WITH HER. SHE ALSO HAS THE LOSARTAN FILLED 10-16-18 AND SHE STATES SHE IS TAKING THAT WELL. I UPDATED THE MED REC WITH HOW SHE HAS BEEN TAKING THEM AT HOME. SHE STATES SHE WILL TAKE HER BOTTLES IN WITH HER TO HER APPOINTMENT NEXT TIME TO GET THEM ALL STRAIGHTENED OUT WITH WHAT EXACTLY THEY WANT HER TO TAKE.
--- NOTE | 2018-11-07 13:46 | NUR ---
Pt is listed as [employer]ist but more accurately describes her self as [employer]. Chaplain olea w/ pt.
[2018-11-07 16:00] VITALS: BP 147/64
[2018-11-07 16:15] LABS: HEMOGLOBIN 10.3 G/DL (11.5-16.0)
--- NOTE | 2018-11-07 17:14 | NUR ---
H&H DROPPING DR. OBRIEN AND DR. ACUNA ARE AWARE NOTIFIED AT THIS TIME. CONT TO MONITOR.
--- NOTE | 2018-11-07 19:05 | Consultation ---
History of Present Illness History of Present Illness Patient Consulted On(terrence/time) 11/07/18 19:04 Date Seen by Provider: Nov 07, 2018 Time Seen by Provider: 19:04 History of Present Illness Consult for lower gi bleed, diverticulosis, by Dr. Gonzales 78 year old female that began having blood per rectum today. bright red in color. will get cramping in the llq and then have bloody bowel movement. resting seems to improve and having bowel movement makes blood worse. Patient has not experienced this lately. Denies any nausea vomiting fever sweats chills shortness of breath or chest pain. Ct scan demonstrating diverticulosis and some fluid filled loops of bowel possible enteritis. Patient on coumadin. Allergies and Home Medications Allergies Coded Allergies: Penicillins (Verified Allergy, Unknown, 11/07/18) Home Medications Amiodarone HCl 200 Mg Tablet, 100 MG PO DAILY, (Reported) TAKES 1/2 (200MG) TABLET Amlodipine Besylate 5 Mg Tablet, 5 MG PO DAILY, (Reported) Aspirin 81 Mg Tablet.dr, 81 MG PO DAILY, (Reported) Diltiazem HCl 240 Mg Cap.er.24h, 240 MG PO DAILY, (Reported) Furosemide 20 Mg Tablet, 20 MG PO HS, (Reported) Gabapentin 100 Mg Capsule, 200 MG PO DAILY, (Reported) TAKES 2 (100MG) CAPSULES Levothyroxine Sodium 75 Mcg Tablet, 75 MCG PO DAILY, (Reported) Losartan Potassium 100 Mg Tablet, 100 MG PO DAILY, (Reported) Potassium Chloride 20 Meq Tab.er.prt, 40 MEQ PO DAILY, (Reported) LAST FILLED #180 04-18-18 TAKES 2 (20MEQ) TABLETS Valsartan 160 Mg Tablet, 160 MG PO DAILY, (Reported) Warfarin Sodium 4 Mg Tablet, 4 MG PO [id number], (Reported) Warfarin Sodium 4 Mg Tablet, 6 MG PO Fr, (Reported) TAKES 1 & 1/2 (4MG) TABLET Patient Home Medication List Home Medication List Reviewed: Yes Past Ebushog-Yizbjw-Zubgiq Hx Patient Social History Alcohol Use: Denies Use Recreational Drug Use: No Smoking Status: Never a Smoker Recent Foreign Travel: No Contact w/Someone Who Travel: No Recent Infectious Disease Expo: No Recent Hopitalizations: No Physical Abuse Screen: No Sexual Abuse: No Immunizations Up To Date Tetanus Booster (TDap): Unknown PED Vaccines UTD: No Date of Pneumonia Vaccine: Apr 12, 2018 Date of Influenza Vaccine: Apr 12, 2018 Seasonal Allergies Seasonal Allergies: Yes Surgeries History of Surgeries: Yes (RIGHT INGUINAL HERNIA REPAIR, 1978 RIGHT KNEE SURGERY, ANKLE 1999) Surgeries: Coronary Stent, Pacemaker Respiratory History of Respiratory Disorde: No Respiratory Disorders: Tuberculosis Cardiovascular History of Cardiac Disorders: Yes (PACEMAKER, VALVE REPLACED) Cardiac Disorders: Atrial Fibrillation, High Cholesterol, Hypertension Neurological History of Neurological Disord: No Reproductive System : No Hx Reproductive Disorders: No Sexually Transmitted Disease: No HIV/AIDS: No Female Reproductive Disorders: Denies Genitourinary History of Genitourinary Disor: No Gastrointestinal History of Gastrointestinal Di: No Musculoskeletal History of Musculoskeletal Dis: No Endocrine History of Endocrine Disorders: Yes Endocrine Disorders: Hypothyroidsim HEENT History of HEENT Disorders: Yes HEENT Disorders: Cataract Hearing Impairment: Hard of Hearing, Hearing Aide Right, Hearing Aide Left Cancer History of Cancer: No Psychosocial History of Psychiatric Problem: No (HX OF DEPRESSION YEARS AGO) Integumentary History of Skin or Integumenta: No Blood Transfusions History of Blood Disorders: No Adverse Reaction to a Blood Tr: No Family Medical History Significant Family History: No Pertinent Family Hx Family Medial History: Patient reports no known family medical history. Review of Systems-General Constitutional: no symptoms reported EENTM: no symptoms reported Respiratory: no symptoms reported Cardiovascular: no symptoms reported Gastrointestinal: see HPI Genitourinary: no symptoms reported Musculoskeletal: no symptoms reported Skin: no symptoms reported Psychiatric/Neurological: No Symptoms Reported Physical Exam-General Problems Physical Exam Vital Signs Vital Signs - First Documented 11/07/18 11/07/18 07:19 12:24 Temp 99.7 Pulse 82 Resp 20 B/P (MAP) 139/57 (84) Pulse Ox 96 O2 Delivery Room Air FiO2 21 Capillary Refill : Less Than 3 Seconds General Appearance: WD/WN, no apparent distress HEENT: PERRL/EOMI, normal ENT inspection Neck: non-tender, supple Respiratory: chest non-tender, no respiratory distress, no accessory muscle use Cardiovascular: irregularly irregular Gastrointestinal: non tender, soft Rectal: deferred Back: no CVA tenderness Extremities: non-tender, normal inspection, no pedal edema Neurologic/Psychiatric: court deputy II-XII nml as tested, no motor/sensory deficits, alert, normal mood/affect, oriented x 3 Skin: normal color, warm/dry Lymphatic: no adenopathy Data Review Labs Laboratory Tests 11/07/18 07:25: Urine Color YELLOW, Urine Clarity CLEAR, Urine pH 5, Urine Specific Vivian 1.025H, Urine Protein 2+H, Urine Glucose (UA) NEGATIVE, Urine Ketones NEGATIVE, Urine Nitrite POSITIVEH, Urine Bilirubin 1+H, Urine Urobilinogen NORMAL, Urine Leukocyte Esterase 3+H, Urine RBC (Auto) 5+H, Urine RBC 2-5H, Urine WBC 10-25H, Urine Squamous Epithelial Cells 0-2, Urine Crystals NONE, Urine Bacteria LARGEH , Urine Casts NONE, Urine Mucus NEGATIVE, Urine Culture Indicated YES 11/07/18 07:45: White Blood Count 8.5, Red Blood Count 4.21L, Hemoglobin 12.3, Hematocrit 39, Mean Corpuscular Volume 93, Mean Corpuscular Hemoglobin 29, Mean Corpuscular Hemoglobin Concent 32, Red Cell Distribution Width 14.6H, Platelet Count 345, Mean Platelet Volume 9.1, Neutrophils (%) (Auto) 68, Lymphocytes (%) (Auto) 20, Monocytes (%) (Auto) 10, Eosinophils (%) (Auto) 2, Basophils (%) (Auto) 1, Neutrophils # (Auto) 5.8, Lymphocytes # (Auto) 1.7, Monocytes # (Auto) 0.8, Eosinophils # (Auto) 0.2, Basophils # (Auto) 0.0, Prothrombin Time 35.3H, INR Comment 3.3H, Activated Partial Thromboplast Time 49H, Sodium Level 142, Potassium Level 3.9, Chloride Level 106, Carbon Dioxide Level 26, Anion Gap 10, Blood Urea Nitrogen 22H, Creatinine 1.20, Estimat Glomerular Filtration Rate 43 , BUN/Creatinine Ratio 18, Glucose Level 98, Calcium Level 9.4, Corrected Calcium 9.2, Total Bilirubin 0.4, Aspartate Amino Transf (AST/SGOT) 21, Alanine Aminotransferase (ALT/SGPT) 16, Alkaline Phosphatase 114, Total Protein 7.5, Albumin 4.3 11/07/18 08:30: Lactic Acid Level 0.63 11/07/18 12:05: Hemoglobin 11.0L, Hematocrit 35 11/07/18 16:05: Hemoglobin 10.3L, Hematocrit 33L Assessment/Plan Assessment/Plan Assessment/Plan Lower gi bleed diverticulosis afib tranfuse prbc as needed follow hgb hold coumadin if hgb continues to drop will need colonoscopy to further evaluate in hospital vs outpatient. no surgical intervention at this time, will follow. Clinical Quality Measures DVT/VTE Risk/Contraindication: Risk Factor Score Per Nursin RFS Level Per Nursing on Admit: 4+=Very High MICHAEL ACUNA DO Nov 07, 2018 19:05
[2018-11-07 20:00] VITALS: BP 154/64
[2018-11-07 20:17] LABS: HEMOGLOBIN 10.4 G/DL (11.5-16.0)
[2018-11-08] VITALS: BP 145/62
[2018-11-08 00:30] LABS: HEMOGLOBIN 10.1 G/DL (11.5-16.0)
[2018-11-08] MEDS: NS IV 1000 ML 1,000 ML IV SCH ×2 (00:39→13:04)
[2018-11-08 04:00] VITALS: BP 163/57
[2018-11-08 05:04] LABS: BASOPHILS % (AUTO) 1 % (0-10); EOSINOPHILS # (AUTO) 0.2 10^3/uL (0.0-0.3); EOSINOPHILS % (AUTO) 2 % (0-10); HEMATOCRIT 31 % (35-52); LYMPHOCYTES % (AUTO) 27 % (12-44); MEAN CORPUSCULAR HEMOGLOBIN 30 PG (25-34); MEAN CORPUSCULAR HGB CONC 32 G/DL (32-36); MEAN CORPUSCULAR VOLUME 92 FL (80-99); MEAN PLATELET VOLUME 9.3 FL (7.4-10.4); MONOCYTES % (AUTO) 13 % (0-12); NEUTROPHILS # (AUTO) 4.2 X 10^3 (1.8-7.8); NEUTROPHILS % (AUTO) 57 % (42-75); PLATELET COUNT 277 10^3/uL (130-400); RED CELL DISTRIBUTION WIDTH 14.5 % (10.0-14.5); WHITE BLOOD COUNT 7.3 10^3/uL (4.3-11.0)
[2018-11-08 05:22] LABS: BUN/CREATININE RATIO 18; CALCIUM 8.5 MG/DL (8.5-10.1); CARBON DIOXIDE 21 MMOL/L (21-32); CHLORIDE 110 MMOL/L (98-107); GFR ESTIMATED > 60; GLUCOSE 93 MG/DL (70-105); POTASSIUM 3.9 MMOL/L (3.6-5.0); SODIUM 140 MMOL/L (135-145)
[2018-11-08 08:00] VITALS: BP 115/65
[2018-11-08 08:13] LABS: HEMOGLOBIN 9.7 G/DL (11.5-16.0)
--- NOTE | 2018-11-08 08:58 | History & Physical-Hospitalist ---
History of Present Illness HPI/Chief Complaint Chief compaint: Passage of blood per rectum. HPI: This is a 78yoWF clinic Pt of Dr. 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 She denies any pain except fro cramping when she is about to pass stool. Dr. Dixon was consulted and Pt's home Coumadin dose was held and Hgb and Hematocrit will be monitored every [address] Joel will see her in consultation but the presumption is a diverticular bleed and the less aggressive we are the better chance that it will clot off and stop bleeding. Pt has not had any significant variability with vital signs and no indication for transfusion at this time. I do review all of her home medication and restart most. Source: patient Date Seen 11/08/18 Time Seen by a Provider: 10:00 Attending Physician Jatinder Gonzales MD PCP Osman Prather MD Referring Physician Date of Admission Nov 07, 2018 at 10:35 Home Medications & Allergies Home Medications Reviewed patient Home Medication Reconciliation performed by pharmacy medication reconciliations dietetic technician registered and/or nursing. Patients Allergies have been reviewed. 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) Alcohol Use: Denies Use Recreational Drug Use: No Smoking Status: Never a Smoker Physical Abuse Screen: No Sexual Abuse: No Recent Foreign Travel: No Contact w/other who traveled: No Recent Hopitalizations: No Recent Infectious Disease Expo: No Immunizations Up To Date Tetanus Booster (TDap): Unknown Pediatric: No Date of Pneumonia Vaccine: Apr 12, 2018 Date of Influenza Vaccine: Apr 12, 2018 Seasonal Allergies Seasonal Allergies: Yes Past Medical History Surgeries: Coronary Stent, Pacemaker Cardiac: Atrial Fibrillation, High Cholesterol, Hypertension : No Reproductive: No Sexually Transmitted Disease: No HIV/AIDS: No Female Reproductive Disorders: Denies Endocrine: Hypothyroidsim HEENT: Cataract Hearing Impairment: Hard of Hearing, Hearing Aide Right, Hearing Aide Left History of Blood Disorders: No Adverse Reaction to Blood Rogers: No Family History Reviewed Nursing Family Hx Patient reports no known family medical history. No Pertinent Family Hx Review of Systems Constitutional: see HPI, dizziness EENTM: no symptoms reported Respiratory: no symptoms reported Cardiovascular: no symptoms reported Gastrointestinal: loss of appetite, melena Genitourinary: no symptoms reported Musculoskeletal: no symptoms reported Skin: no symptoms reported Psychiatric/Neurological: No Symptoms Reported All Other Systems Reviewed Negative Unless Noted: Yes Physical Exam Physical Exam Vital Signs Vital Signs - First Documented 11/07/18 11/07/18 07:19 12:24 Temp 99.7 Pulse 82 Resp 20 B/P (MAP) 139/57 (84) Pulse Ox 96 O2 Delivery Room Air FiO2 21 Capillary Refill : Less Than 3 Seconds Height, Weight, BMI Height: 5'9.00" Weight: 171lbs. 9.0oz. [id number]; 25.3 BMI Method:Stated General Appearance: No Apparent Distress, WD/WN, Chronically ill Eyes: Right Eye Normal Inspection, Right Eye PERRL HEENT: PERRL/EOMI, Normal ENT Inspection, Pharynx Normal, Moist Mucous Membranes Neck: Full Range of Motion, Normal Inspection, Non Tender Respiratory: Chest Non Tender, Lungs Clear, Normal Breath Sounds, No Accessory Muscle Use, No Respiratory Distress Cardiovascular: No Edema, No Gallop, No JVD, Normal Peripheral Pulses, Systolic Murmur, Irregularly Irregular Gastrointestinal: Normal Bowel Sounds, No Organomegaly, No Pulsatile Mass, Non Tender, Soft Back: Normal Inspection, No CVA Tenderness, No Vertebral Tenderness Extremity: Normal Capillary Refill, Normal Inspection, Normal Range of Motion, Non Tender, No Calf Tenderness, No Pedal Edema Neurologic/Psychiatric: Alert, Oriented x3, No Motor/Sensory Deficits, Normal Mood/Affect Skin: Normal Color, Warm/Dry Lymphatic: No Adenopathy Results Results/Procedures Labs Laboratory Tests 11/07/18 07:45 11/07/18 12:05 11/07/18 16:05 11/07/18 20:05 11/08/18 00:20 11/08/18 05:00 11/08/18 08:02 11/08/18 18:14 Patient resulted labs reviewed. Assessment/Plan Admission Diagnosis Assessment: Acute GI bleed Chronic anticoagulation AF Valvular heart disease HTN Plan: Appreciate Dr Joel input Hold anticoagulation Monitor H/H PPI Appreciate Dr Dixon consultation Admission Status: Inpatient Order (span 2 midnights) Reason for Inpatient Admission: GI bleed will require 3 days Diagnosis/Problems Diagnosis/Problems (1) Diverticulosis of colon with hemorrhage Status: Acute (2) Atrial fibrillation Status: Chronic Qualifiers: Atrial fibrillation type: chronic Qualified Codes: I48.2 - Chronic atrial fibrillation (3) Valvular heart disease Status: Chronic (4) Urinary tract infection Status: Acute Qualifiers: Urinary tract infection type: acute cystitis Hematuria presence: without hematuria Qualified Codes: N30.00 - Acute cystitis without hematuria Clinical Quality Measures DVT/VTE Risk/Contraindication: Risk Factor Score Per Nursin RFS Level Per Nursing on Admit: 4+=Very High DAYA VILLEGAS DO Nov 08, 2018 08:58
--- NOTE | 2018-11-08 10:04 | Cardiology Progress Note ---
Subjective Date Seen by Provider: Nov 08, 2018 Time Seen by Provider: 08:40 Subjective/Events-last exam Patient is an 78 year old female with history of CAD with stent to the LAD, Aortic stenosis, s/p TAVR in August 2017, PAF, SSS s/p PPM. Presented to the ER with complaints of bleeding per rectum. Denies any chest pain, dyspnea, dizziness or lightheadedness. Maintained on Coumadin with INR 3.3. Continuing to have blood in stool and found to have diverticulosis. Focused Exam Lactate Level 11/07/18 08:30: Lactic Acid Level 0.63 Objective-Cardiology Exam Last Set of Vital Signs Vital Signs 11/07/18 11/08/18 11/08/18 12:24 04:00 08:36 Temp 98.1 Pulse 68 Resp 18 B/P (MAP) 163/57 (92) Pulse Ox 93 O2 Delivery Room Air FiO2 21 Capillary Refill : Less Than 3 Seconds I&O Intake and Output 11/08/18 00:00 Intake Total 2760 ml Output Total 425 ml Balance 2335 ml Intake Oral 1750 ml IV Total 1010 ml Output Urine Total 425 ml # Voids 3 # Bowel Movements 5 Daily Weight Change No No General: Alert, Oriented X3, Cooperative HEENT: Atraumatic, PERRLA Neck: Supple, No JVD, No Thyromegaly Lungs: Clear to Auscultation, Normal Air Movement Heart: Regular Rate, Other (systolic murmur) Abdomen: No Tenderness, No Hepatosplenomegaly Extremities: No Clubbing, No Cyanosis, No Edema Neuro: Normal Speech, Sensation Intact, Cranial Nerves 3-12 NL Psych/Mental Status: Mental Status NL, Mood NL Results Lab Laboratory Tests 11/07/18 12:05 11/07/18 16:05 11/07/18 20:05 11/08/18 00:20 11/08/18 05:00 11/08/18 08:02 A/P-Cardiology Admission Diagnosis GI bleed Diverticulosis CAD Aortic stenosis, s/p TAVR Assessment/Plan GI bleed, diverticulosis- Dr. Joel managing. UTI- management per hospitalist Anemia- continue to monitor H/H. Coronary artery disease with history of stent to LAD. Underwent cardiac catheterization in July 2017 in [place] revealing patent stent with nonobstructive disease. Continue to monitor. Severe aortic valve stenosis, status post TAVR done September 06, 2017 in [place] with uneventful deployment of a 26 mm Medtronic Evolut Pro. Most recent 2D Echo 10/12/18 revealing mechanical prothesis present in aortic valve. Peak gradient across prosthetic valve is 26 mmHg, mean gradient 13mmHg, calculated valve area 2.41 cm squared. Mild AR. there is perivalvular regurg, Mod TR Paroxysmal atrial fibrillation, maintained on Coumadin, amiodarone. INR 3.3, Coumadin currently on hold secondary to GI bleed. HTP- 2D Echo done October 2018 with PA 45-55mmHg. Mild bilateral carotid stenosis, history of syncope. Last ultrasound was done in July 2018, continue to monitor. Sick sinus syndrome, history of permanent pacemaker. Continue to monitor. Hypertension, restart medications and continue to monitor. Hyperlipidemia, monitored as outpatient. Hypothyroidism, patient is maintained on amiodarone,continue to monitor. Thank you for allowing us to participate in the management of Ms. Baker. This is Samra Zhu PA-C, as a scribe for Dr. Dixon. Clinical Quality Measures DVT/VTE Risk/Contraindication: Risk Factor Score Per Nursin RFS Level Per Nursing on Admit: 4+=Very High SAMRA SAAVEDRA Nov 08, 2018 10:04
--- NOTE | 2018-11-08 10:15 | Consultation-Cardiology ---
HPI-Cardiology Cardiology Consultation Date of Consultation 11/08/18 Date of Admission Time Seen by Provider: 08:40 Indication: CAD, PAF, hx of TAVR HPI Patient is an 78 year old female with history of CAD with stent to the LAD, Aortic stenosis, s/p TAVR in August 2017, PAF, SSS s/p PPM. Presented to the ER with complaints of bleeding per rectum. Denies any chest pain, dyspnea, dizziness or lightheadedness. Maintained on Coumadin with INR 3.3. Continuing to have blood in stool and found to have diverticulosis. Home Medications & Allergies Allergies: Coded Allergies: Penicillins (Verified Allergy, Unknown, 11/07/18) Home Medication List Reviewed: Yes VKY-Hlikux-Senbgd Hx Patient Social History Marital Status: Employed/Student: retired Alcohol Use: Denies Use Recreational Drug Use: No Smoking Status: Never a Smoker Recent Foreign Travel: No Recent Infectious Disease Expo: No Recent Hopitalizations: No Physical Abuse Screen: No Sexual Abuse: No Immunizations Up To Date Tetanus Booster (TDap): Unknown Date of Pneumonia Vaccine: Apr 12, 2018 Date of Influenza Vaccine: Apr 12, 2018 Past Medical History CAD, PAF, SSS, HTN, HLP, s/p TAVR Family Medical History Significant Family History: No Pertinent Family Hx Family History: Patient reports no known family medical history. Review of Systems Constitutional: No diaphoresis, No fever; malaise, weakness EENTM: No blurred vision, No double vision, No vision loss Respiratory: No cough, No dyspnea on exertion Cardiovascular: No chest pain, No edema; Hx of Intervention; No palpitations, No syncope; vascular heart diseas Gastrointestinal: No abdominal pain, No constipation, No diarrhea; melena Genitourinary: dysuria; No hematuria Musculoskeletal: No back pain, No joint pain Skin: No lesions, No rash Psychiatric/Neurological: Denies Anxiety, Denies Depressed Reviewed Test Results Reviewed Test Results Lab Laboratory Tests 11/07/18 12:05: Hemoglobin 11.0L, Hematocrit 35 11/07/18 16:05: Hemoglobin 10.3L, Hematocrit 33L 11/07/18 20:05: Hemoglobin 10.4L, Hematocrit 34L 11/08/18 00:20: Hemoglobin 10.1L, Hematocrit 32L 11/08/18 05:00: White Blood Count 7.3, Red Blood Count 3.36L, Hemoglobin 10.0L, Hematocrit 31L, Mean Corpuscular Volume 92, Mean Corpuscular Hemoglobin 30, Mean Corpuscular Hemoglobin Concent 32, Red Cell Distribution Width 14.5, Platelet Count 277, Mean Platelet Volume 9.3, Neutrophils (%) (Auto) 57, Lymphocytes (%) (Auto) 27, Monocytes (%) (Auto) 13H, Eosinophils (%) (Auto) 2, Basophils (%) (Auto) 1, Neutrophils # (Auto) 4.2, Lymphocytes # (Auto) 2.0, Monocytes # (Auto) 1.0, Eosinophils # (Auto) 0.2, Basophils # (Auto) 0.0, Sodium Level 140, Potassium Level 3.9, Chloride Level 110H, Carbon Dioxide Level 21, Anion Gap 9, Blood Urea Nitrogen 14, Creatinine 0.80, Estimat Glomerular Filtration Rate > 60, BUN/ Creatinine Ratio 18, Glucose Level 93, Calcium Level 8.5 11/08/18 08:02: Hemoglobin 9.7L, Hematocrit 31L Physical Exam Vital Signs Vital Signs - First Documented 11/07/18 11/07/18 07:19 12:24 Temp 99.7 Pulse 82 Resp 20 B/P (MAP) 139/57 (84) Pulse Ox 96 O2 Delivery Room Air FiO2 21 Capillary Refill : Less Than 3 Seconds Height, Weight, BMI Height: 5'9.00" Weight: 171lbs. 9.0oz. 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 Joel managing. UTI- management per hospitalist Anemia- continue to monitor H/H. Coronary artery disease with history of stent to LAD. Underwent cardiac catheterization in July 2017 in [place] revealing patent stent with nonobstructive disease. Continue to monitor. Severe aortic valve stenosis, status post TAVR done September 06, 2017 in [place] with uneventful deployment of a 26 mm Medtronic Evolut Pro. Most recent 2D Echo 10/12/18 revealing mechanical prothesis present in aortic valve. Peak gradient across prosthetic valve is 26 mmHg, mean gradient 13mmHg, calculated valve area 2.41 cm squared. Mild AR. there is perivalvular regurg, Mod TR Paroxysmal atrial fibrillation, maintained on Coumadin, amiodarone. INR 3.3, Coumadin currently on hold secondary to GI bleed. HTP- 2D Echo done October 2018 with PA 45-55mmHg. Mild bilateral carotid stenosis, history of syncope. Last ultrasound was done in July 2018, continue to monitor. Sick sinus syndrome, history of permanent pacemaker. Continue to monitor. Hypertension, restart medications and continue to monitor. Hyperlipidemia, monitored as outpatient. Hypothyroidism, patient is maintained on amiodarone,continue to monitor. Thank you for allowing us to participate in the management of Ms. Baker. This is Samra Zhu PA-C, as a scribe for Dr. Dixon. This is Dr. Dixon, I have seen and evaluated the patient with Samra, interviewed the patient and examined her and agree with the current scribed note. On examination lungs were clear to auscultation bilaterally, heart is regular. Patient has been maintained on Coumadin, history of aortic valve replacement. Had paroxysmal atrial fibrillation maintained on amiodarone. Has been having diarrhea which is watery, having blood clots with the stool. Admitted to the hospital. Currently Coumadin is on hold. Continue to monitor. Possible endoscopy, continue with IV fluid and monitor H&H. Clinical Quality Measures DVT/VTE Risk/Contraindication: Risk Factor Score Per Nursin RFS Level Per Nursing on Admit: 4+=Very High SAMRA SAAVEDRA Nov 08, 2018 10:15 am EDY DIXON MD Nov 08, 2018 2:07 pm
[2018-11-08] MEDS: cefTRIAXone 1,000 MG/SWFI 10 ML IV PUSH IV SCH ×2 (10:26)
[2018-11-08] MEDS ORDERED: LOSA100T57 PO (10:48)
[2018-11-08 12:00] VITALS: BP 164/82
[2018-11-08 16:00] VITALS: BP 162/74
[2018-11-08 18:24] LABS: HEMOGLOBIN 9.9 G/DL (11.5-16.0)
[2018-11-08 20:00] VITALS: BP 150/64
--- NOTE | 2018-11-08 20:30 | Progress Note ---
Subjective Date Seen by a Provider: Nov 08, 2018 Time Seen by a Provider: 17:20 Subjective/Events-last exam Doing okay. Had some blood per rectum. Not having any abdominal pain. Denies n/v fever sweats chills shortenss of breath or chest pain. HGb minimal drop. Focused Exam Lactate Level 11/07/18 08:30: Lactic Acid Level 0.63 Objective Exam Vital Signs Date Time Temp Pulse Resp B/P (MAP) Pulse Ox O2 Delivery O2 Flow Rate FiO2 11/08/18 16:00 99.3 66 18 162/74 (103) 97 Room Air 11/08/18 12:00 98.6 78 18 164/82 (109) 93 Room Air 11/08/18 08:36 93 Room Air 11/08/18 08:00 98.2 77 18 115/65 (82) 95 Room Air 11/08/18 08:00 94 Room Air 11/08/18 04:00 98.1 68 18 163/57 (92) 94 Room Air 11/08/18 00:00 98.0 63 18 145/62 (89) 93 Room Air I & O 11/08/18 07:00 Intake Total 3260 ml Output Total 1075 ml Balance 2185 ml Capillary Refill : Less Than 3 Seconds General Appearance: No Apparent Distress, WD/WN, Chronically ill HEENT: PERRL/EOMI, Normal ENT Inspection, Pharynx Normal, Moist Mucous Membranes Neck: Full Range of Motion, Normal Inspection, Non Tender Respiratory: Chest Non Tender, No Accessory Muscle Use, No Respiratory Distress Cardiovascular: Normal Peripheral Pulses, Irregularly Irregular Gastrointestinal: non tender, soft, no organomegaly Extremity: Normal Capillary Refill, Normal Inspection, Normal Range of Motion, Non Tender, No Calf Tenderness, No Pedal Edema Neurologic/Psychiatric: Alert, Oriented x3, No Motor/Sensory Deficits, Normal Mood/Affect Skin: Normal Color, Warm/Dry Lymphatic: No Adenopathy Results Lab Laboratory Tests 11/08/18 00:20: Hemoglobin 10.1L, Hematocrit 32L 11/08/18 05:00: Hemoglobin 10.0L, Hematocrit 31L, White Blood Count 7.3, Red Blood Count 3.36L, Mean Corpuscular Volume 92, Mean Corpuscular Hemoglobin 30, Mean Corpuscular Hemoglobin Concent 32, Red Cell Distribution Width 14.5, Platelet Count 277, Mean Platelet Volume 9.3, Neutrophils (%) (Auto) 57, Lymphocytes (%) (Auto) 27, Monocytes (%) (Auto) 13H, Eosinophils (%) (Auto) 2, Basophils (%) (Auto) 1, Neutrophils # (Auto) 4.2, Lymphocytes # (Auto) 2.0, Monocytes # (Auto) 1.0, Eosinophils # (Auto) 0.2, Basophils # (Auto) 0.0, Sodium Level 140, Potassium Level 3.9, Chloride Level 110H, Carbon Dioxide Level 21, Anion Gap 9, Blood Urea Nitrogen 14, Creatinine 0.80, Estimat Glomerular Filtration Rate > 60, BUN/ Creatinine Ratio 18, Glucose Level 93, Calcium Level 8.5 11/08/18 08:02: Hemoglobin 9.7L, Hematocrit 31L 11/08/18 18:14: Hemoglobin 9.9L, Hematocrit 31L Microbiology 11/07/18 Blood Culture - Preliminary, Resulted No growth 11/07/18 Urine Culture - Preliminary, Resulted Gram Negative Abebe Assessment/Plan Assessment/Plan Assessment/Plan Lower gi bleed diverticulosis afib tranfuse prbc as needed follow hgb was being checked every 4 hours, change to this evening and in am. This evening hgb 9.9 (stable) hold coumadin if hgb continues to drop will need colonoscopy to further evaluate in hospital vs outpatient. no surgical intervention at this time, will follow. Clinical Quality Measures DVT/VTE Risk/Contraindication: Risk Factor Score Per Nursin RFS Level Per Nursing on Admit: 4+=Very High MICHAEL ACUNA DO Nov 08, 2018 20:30
[2018-11-09] VITALS (12 sets, daily range): BP systolic 130–188; BP diastolic 61–81
[2018-11-09] MEDS: NS IV 1000 ML 1,000 ML IV SCH ×2 (01:58→15:02)
[2018-11-09 06:16] LABS: HEMOGLOBIN 9.8 G/DL (11.5-16.0)
[2018-11-09] MEDS: LEVOTHYROXINE 75 MCG (LEVOTHROID) TABLET PO SCH (06:21)
[2018-11-09] MEDS: KCL 20 MEQ TAB (K-DUR) PO SCH (06:21)
[2018-11-09] MEDS ORDERED: GOLYTELY POWDER 4000 ML BTL PO NR (08:30)
[2018-11-09] MEDS ORDERED: LOSARTAN 100 MG (COZAAR) TABLET PO SCH (09:00)
[2018-11-09] MEDS ORDERED: NON-FORMULARY MEDICATION 1 EA EA (Diltiazem HCl (Cartia Xt) 240 MG) PO SCH (09:00)
[2018-11-09] MEDS ORDERED: NON-FORMULARY MEDICATION 1 EA EA (Amlodipine Besylate 5 MG) PO SCH (09:00)
[2018-11-09] MEDS ORDERED: KCL 20 MEQ TAB (K-DUR) PO SCH (09:00)
[2018-11-09] MEDS: cefTRIAXone 1,000 MG/SWFI 10 ML IV PUSH IV SCH ×2 (09:04)
[2018-11-09] MEDS: AMIODARONE 200 MG (CORDARONE) TAB PO SCH (09:05)
[2018-11-09] MEDS: VALSARTAN 160 MG (DIOVAN) TABLET PO SCH (09:05)
[2018-11-09] MEDS: amLODIPine 5 MG (NORVASC) TAB PO SCH (09:05)
[2018-11-09] MEDS: GABAPENTIN 100 MG (NEURONTIN) CAP PO SCH (09:05)
[2018-11-09] MEDS: DILTIAZEM 240 MG (CARDIZEM CD) CAP PO SCH (09:05)
--- NOTE | 2018-11-09 10:54 | Progress Note-Hospitalist ---
Subjective HPI/CC On Admission Date Seen by Provider: Nov 09, 2018 Time Seen by Provider: 10:00 Chief compaint: Passage of blood per rectum. HPI: This is a 78yoWF clinic Pt of Dr. 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 She denies any pain except fro cramping when she is about to pass stool. Dr. Dixon was consulted and Pt's home Coumadin dose was held and Hgb and Hematocrit will be monitored every [address] Joel will see her in consultation but the presumption is a diverticular bleed and the less aggressive we are the better chance that it will clot off and stop bleeding. Pt has not had any significant variability with vital signs and no indication for transfusion at this time. I do review all of her home medication and restart most. Subjective/Events-last exam Patient doing okay but had another episode of the lot of blood in the stool Colonoscopy will be performed tomorrow by Dr. Joel Noted hemoglobin 9.8 Feels like she's been bloating the last couple of months This is definitely suspicious for some sort of neoplastic process Monitor hemoglobin closely Review of Systems Gastrointestinal: Melena Focused Exam Lactate Level 11/07/18 08:30: Lactic Acid Level 0.63 Objective Exam Vital Signs Vital Signs Date Time Temp Pulse Resp B/P (MAP) Pulse Ox O2 Delivery O2 Flow Rate FiO2 11/09/18 08:00 97.7 68 18 148/67 (94) 96 Room Air 11/07/18 12:24 21 Capillary Refill : Less Than 3 Seconds General Appearance: No Apparent Distress, WD/WN, Chronically ill HEENT: PERRL/EOMI, Normal ENT Inspection, Pharynx Normal, Moist Mucous Membranes Neck: Full Range of Motion, Normal Inspection, Non Tender Respiratory: Chest Non Tender, Lungs Clear, Normal Breath Sounds, No Accessory Muscle Use, No Respiratory Distress Cardiovascular: Normal Peripheral Pulses, Systolic Murmur, Irregularly Irregular Gastrointestinal: Normal Bowel Sounds, No Organomegaly, No Pulsatile Mass, Non Tender, Soft Rectal: Deferred Back: Normal Inspection, No CVA Tenderness, No Vertebral Tenderness Extremity: Normal Capillary Refill, Normal Inspection, Normal Range of Motion, Non Tender, No Calf Tenderness, No Pedal Edema Neurologic/Psychiatric: Alert, Oriented x3, No Motor/Sensory Deficits, Normal Mood/Affect Skin: Normal Color, Warm/Dry Lymphatic: No Adenopathy Results/Procedures Lab Laboratory Tests 11/08/18 18:14 11/09/18 05:50 Patient resulted labs reviewed. Assessment/Plan Assessment and Plan Assess & Plan/Chief Complaint Assessment: Acute GI bleed Chronic anticoagulation AF Valvular heart disease HTN Plan: Appreciate Dr Joel input Hold anticoagulation Monitor H/H PPI Appreciate Dr Dixon consultation Colonoscopy tomorrow Diagnosis/Problems Diagnosis/Problems (1) Diverticulosis of colon with hemorrhage Status: Acute (2) Atrial fibrillation Status: Chronic Qualifiers: Atrial fibrillation type: chronic Qualified Codes: I48.2 - Chronic atrial fibrillation (3) Valvular heart disease Status: Chronic (4) Urinary tract infection Status: Acute Qualifiers: Urinary tract infection type: acute cystitis Hematuria presence: without hematuria Qualified Codes: N30.00 - Acute cystitis without hematuria (5) Acute blood loss anemia Status: Acute Clinical Quality Measures DVT/VTE Risk/Contraindication: Risk Factor Score Per Nursin RFS Level Per Nursing on Admit: 4+=Very High DAYA VILLEGAS DO Nov 09, 2018 10:54
--- NOTE | 2018-11-09 15:16 | Cardiology Progress Note ---
Subjective Date Seen by Provider: Nov 09, 2018 Time Seen by Provider: 07:50 Subjective/Events-last exam patient was seen at bedside, laying down in bed, denied any active pain, still having diarrhea Review of Systems General: No Chills, No Night Sweats, No Fatigue, No Malaise, No Appetite, No Other HEENT: No Head Aches, No Visual Changes, No Eye Pain, No Ear Pain, No Dysphasia , No Sinus Congestion, No Post Nasal Drip, No Sore Throat, No Other Pulmonary: No Dyspnea, No Cough, No Pleuritic Chest Pain, No Other Cardiovascular: No: Chest Pain, Palpitations, Orthopnea, Paroxysmal Noc. Dyspnea, Edema, Lt Headedness, Other Focused Exam Lactate Level 11/07/18 08:30: Lactic Acid Level 0.63 Objective-Cardiology Exam Last Set of Vital Signs Vital Signs 11/07/18 11/09/18 12:24 15:02 Temp 98.8 Pulse 67 Resp 20 B/P (MAP) 139/65 Pulse Ox 96 O2 Delivery Room Air FiO2 21 Capillary Refill : Less Than 3 Seconds I&O Intake and Output 11/08/18 23:59 Intake Total 3060 ml Output Total 650 ml Balance 2410 ml Intake Oral 3050 ml IV Total 10 ml Urine/Stool Mix 650 ml # Voids 9 # Bowel Movements 3 Daily Weight Change Unsure General: Alert, Oriented X3, Cooperative HEENT: Atraumatic, PERRLA Neck: Supple, No JVD, No Thyromegaly Lungs: Clear to Auscultation, Normal Air Movement Heart: Regular Rate, Normal S1, Other (systolic murmur) Abdomen: No Tenderness, No Hepatosplenomegaly Extremities: No Clubbing, No Cyanosis, No Edema Neuro: Normal Speech, Sensation Intact, Cranial Nerves 3-12 NL Psych/Mental Status: Mental Status NL, Mood NL Results Lab Laboratory Tests 11/08/18 18:14 11/09/18 05:50 A/P-Cardiology Admission Diagnosis GI bleed Diverticulosis CAD Aortic stenosis, s/p TAVR Assessment/Plan GI bleed, diverticulosis, off Coumadin, INR today is 2, for colonoscopy tomorrow , patient received 2 units of fresh frozen plasma UTI- management per hospitalist Anemia- continue to monitor H/H. Coronary artery disease with history of stent to LAD. Underwent cardiac catheterization in July 2017 in [place] revealing patent stent with nonobstructive disease. Continue to monitor. Severe aortic valve stenosis, status post TAVR done September 06, 2017 in [place] with uneventful deployment of a 26 mm Medtronic Evolut Pro. Most recent 2D Echo 10/12/18 revealing mechanical prothesis present in aortic valve. Peak gradient across prosthetic valve is 26 mmHg, mean gradient 13mmHg, calculated valve area 2.41 cm squared. Mild AR. there is perivalvular regurg, Mod TR, continue to monitor Paroxysmal atrial fibrillation, maintained on Coumadin, amiodarone. INR 3.3, Coumadin currently on hold secondary to GI bleed. HTP- 2D Echo done October 2018 with PA 45-55mmHg. Mild bilateral carotid stenosis, history of syncope. Last ultrasound was done in July 2018, continue to monitor. Sick sinus syndrome, history of permanent pacemaker. Continue to monitor. Hypertension, restart medications and continue to monitor. Hyperlipidemia, monitored as outpatient. Hypothyroidism, patient is maintained on amiodarone,continue to monitor. Clinical Quality Measures DVT/VTE Risk/Contraindication: Risk Factor Score Per Nursin RFS Level Per Nursing on Admit: 4+=Very High EDY GOOD MD Nov 09, 2018 15:16
--- NOTE | 2018-11-09 19:28 | Progress Note ---
Subjective Date Seen by a Provider: Nov 09, 2018 Time Seen by a Provider: 07:35 Subjective/Events-last exam Patient having blood for bowel movement. Not abdominal pain. No new complaints. Anticoagulation on hold INR decreasing. Patient wanting to have colonoscopy done. No nausea vomiting fever sweats chills shortness of breath or chest pain. Focused Exam Lactate Level 11/07/18 08:30: Lactic Acid Level 0.63 Objective Exam Vital Signs Date Time Temp Pulse Resp B/P (MAP) Pulse Ox O2 Delivery O2 Flow Rate FiO2 11/09/18 18:02 98.6 70 20 173/72 94 Room Air 11/09/18 17:48 98.6 66 20 183/75 94 Room Air 11/09/18 17:25 99.2 68 20 188/81 96 Room Air 11/09/18 15:47 98.7 69 20 155/62 (93) 96 Room Air 11/09/18 15:17 99.0 66 20 162/75 95 Room Air 11/09/18 15:02 98.8 67 20 139/65 96 Room Air 11/09/18 12:00 98.0 71 18 130/66 (87) 98 Room Air 11/09/18 08:00 97.7 68 18 148/67 (94) 96 Room Air 11/09/18 08:00 96 Room Air 11/09/18 04:00 98.6 77 16 139/62 (87) 94 Room Air 11/09/18 00:08 96.9 68 16 139/66 (90) 96 Room Air 11/08/18 20:00 Room Air 11/08/18 20:00 99.3 70 22 150/64 (92) 96 Room Air I & O 11/09/18 07:00 Intake Total 4060 ml Output Total 800 ml Balance 3260 ml Capillary Refill : Less Than 3 Seconds General Appearance: No Apparent Distress, WD/WN, Chronically ill HEENT: PERRL/EOMI, Normal ENT Inspection, Moist Mucous Membranes Neck: Full Range of Motion, Normal Inspection, Non Tender Respiratory: Chest Non Tender, No Accessory Muscle Use, No Respiratory Distress Cardiovascular: Normal Peripheral Pulses, Systolic Murmur, Irregularly Irregular Gastrointestinal: non tender, soft, no organomegaly Extremity: Normal Capillary Refill, Normal Inspection, Normal Range of Motion, Non Tender, No Calf Tenderness, No Pedal Edema Neurologic/Psychiatric: Alert, Oriented x3, No Motor/Sensory Deficits, Normal Mood/Affect Skin: Normal Color, Warm/Dry Lymphatic: No Adenopathy Results Lab Laboratory Tests 11/09/18 05:50: Hemoglobin 9.8L, Hematocrit 31L, Prothrombin Time 24.0H, INR Comment 2.0H, Activated Partial Thromboplast Time 37H Microbiology 11/07/18 Blood Culture - Preliminary, Resulted No growth 11/07/18 Urine Culture - Final, Complete Escherichia coli Assessment/Plan Assessment/Plan Assessment/Plan Lower gi bleed diverticulosis afib tranfuse prbc as needed follow hgb and INR hold coumadin still with bleeding discussed with Dr. Dixon and Coumadin. We feel best to proceed with colonoscopy. Give 2 ffp to reverse INR more Golytely prep npo after midnight consent for colonoscopy all other indicated procedures, she understands risks and benefits Clinical Quality Measures DVT/VTE Risk/Contraindication: Risk Factor Score Per Nursin RFS Level Per Nursing on Admit: 4+=Very High MICHAEL ACUNA DO Nov 09, 2018 19:28
[2018-11-09] MEDS ORDERED: GOLYTELY POWDER 4000 ML BTL PO ONE (19:30)
[2018-11-10] VITALS (8 sets, daily range): BP systolic 132–172; BP diastolic 63–73
[2018-11-10] MEDS: LEVOTHYROXINE 75 MCG (LEVOTHROID) TABLET PO SCH (06:32)
[2018-11-10] MEDS: NS IV 1000 ML 1,000 ML IV SCH ×2 (06:32→09:25)
[2018-11-10] MEDS: KCL 20 MEQ TAB (K-DUR) PO SCH (06:32)
[2018-11-10] MEDS: DILTIAZEM 240 MG (CARDIZEM CD) CAP PO SCH (07:53)
[2018-11-10] MEDS: AMIODARONE 200 MG (CORDARONE) TAB PO SCH (07:53)
[2018-11-10] MEDS: VALSARTAN 160 MG (DIOVAN) TABLET PO SCH (07:53)
[2018-11-10] MEDS: amLODIPine 5 MG (NORVASC) TAB PO SCH (07:54)
[2018-11-10] MEDS: GABAPENTIN 100 MG (NEURONTIN) CAP PO SCH (07:54)
--- NOTE | 2018-11-10 08:48 | Cardiology Progress Note ---
Subjective Date Seen by Provider: Nov 10, 2018 Time Seen by Provider: 08:46 Subjective/Events-last exam Patient is in bed, ready for colonoscopy, no new complaint Review of Systems General: No Chills, No Night Sweats, No Fatigue, No Malaise, No Appetite, No Other HEENT: No Head Aches, No Visual Changes, No Eye Pain, No Ear Pain, No Dysphasia , No Sinus Congestion, No Post Nasal Drip, No Sore Throat, No Other Pulmonary: No Dyspnea, No Cough, No Pleuritic Chest Pain, No Other Cardiovascular: No: Chest Pain, Palpitations, Orthopnea, Paroxysmal Noc. Dyspnea, Edema, Lt Headedness, Other Objective-Cardiology Exam Last Set of Vital Signs Vital Signs 11/07/18 11/10/18 12:24 07:35 Temp 98.9 Pulse 64 Resp 18 B/P (MAP) 134/63 (86) Pulse Ox 95 O2 Delivery Room Air FiO2 21 Capillary Refill : Less Than 3 Seconds I&O Intake and Output 11/09/18 23:59 Intake Total 8670 ml Output Total 3150 ml Balance 5520 ml Intake Oral 6660 ml IV Total 2010 ml Output Urine Total 3150 ml # Voids 13 # Bowel Movements 13 General: Alert, Oriented X3, Cooperative HEENT: Atraumatic, PERRLA Neck: Supple, No JVD, No Thyromegaly Lungs: Clear to Auscultation, Normal Air Movement Heart: Regular Rate, Normal S1, Other (systolic murmur) Abdomen: No Tenderness, No Hepatosplenomegaly Extremities: No Clubbing, No Cyanosis, No Edema Neuro: Normal Speech, Sensation Intact, Cranial Nerves 3-12 NL Psych/Mental Status: Mental Status NL, Mood NL Results Lab Laboratory Tests Test 11/10/18 04:35 Range/Units A/P-Cardiology Admission Diagnosis GI bleed Diverticulosis CAD Aortic stenosis, s/p TAVR Assessment/Plan GI bleed, diverticulosis, off Coumadin, for colonoscopy today UTI- management per hospitalist Coronary artery disease with history of stent to LAD. Underwent cardiac catheterization in July 2017 in [place] revealing patent stent with nonobstructive disease. Continue to monitor. Severe aortic valve stenosis, status post TAVR done September 06, 2017 in [place] with uneventful deployment of a 26 mm Medtronic Evolut Pro. Most recent 2D Echo 10/12/18 revealing mechanical prothesis present in aortic valve. Peak gradient across prosthetic valve is 26 mmHg, mean gradient 13mmHg, calculated valve area 2.41 cm squared. Mild AR. there is perivalvular regurg, Mod TR, continue to monitor Paroxysmal atrial fibrillation, maintained on Coumadin, amiodarone. Coumadin currently on hold secondary to GI bleed. HTP- 2D Echo done October 2018 with PA 45-55mmHg. Mild bilateral carotid stenosis, history of syncope. Last ultrasound was done in July 2018, continue to monitor. Sick sinus syndrome, history of permanent pacemaker. Continue to monitor. Hypertension, restart medications and continue to monitor. Hyperlipidemia, monitored as outpatient. Hypothyroidism, patient is maintained on amiodarone,continue to monitor. Clinical Quality Measures DVT/VTE Risk/Contraindication: Risk Factor Score Per Nursin RFS Level Per Nursing on Admit: 4+=Very High EDY GOOD MD Nov 10, 2018 08:48
--- NOTE | 2018-11-10 09:08 | Progress Note ---
Subjective Date Seen by a Provider: Nov 10, 2018 Time Seen by a Provider: 09:04 Subjective/Events-last exam Patient no new complaints. Tolerated prep. Clear and not having any blood now. She is not having any abdominal pain. No n/v fever sweats chills shortness of breath or chest pain. Objective Exam Vital Signs Date Time Temp Pulse Resp B/P (MAP) Pulse Ox O2 Delivery O2 Flow Rate FiO2 11/10/18 08:45 64 95 21 11/10/18 08:00 96 Room Air 11/10/18 07:35 98.9 64 18 134/63 (86) 95 Room Air 11/10/18 04:32 98.0 64 18 132/63 (86) 95 Room Air 11/10/18 00:34 98.9 68 20 160/70 (100) 93 Room Air 11/09/18 20:26 98.3 70 20 180/78 93 Room Air 11/09/18 20:00 98.7 70 18 165/61 (95) 96 Room Air 11/09/18 19:50 Room Air 11/09/18 18:02 98.6 70 20 173/72 94 Room Air 11/09/18 17:48 98.6 66 20 183/75 94 Room Air 11/09/18 17:25 99.2 68 20 188/81 96 Room Air 11/09/18 15:47 98.7 69 20 155/62 (93) 96 Room Air 11/09/18 15:17 99.0 66 20 162/75 95 Room Air 11/09/18 15:02 98.8 67 20 139/65 96 Room Air 11/09/18 12:00 98.0 71 18 130/66 (87) 98 Room Air I & O 11/10/18 07:00 Intake Total 7170 ml Output Total 5050 ml Balance 2120 ml Capillary Refill : Less Than 3 Seconds General Appearance: No Apparent Distress, WD/WN, Chronically ill HEENT: PERRL/EOMI, Normal ENT Inspection, Moist Mucous Membranes Neck: Full Range of Motion, Normal Inspection, Non Tender Respiratory: Chest Non Tender, No Accessory Muscle Use, No Respiratory Distress Cardiovascular: Normal Peripheral Pulses, Irregularly Irregular Gastrointestinal: non tender, soft, no organomegaly Extremity: Normal Capillary Refill, Normal Inspection, Normal Range of Motion, Non Tender, No Calf Tenderness, No Pedal Edema Neurologic/Psychiatric: Alert, Oriented x3, No Motor/Sensory Deficits, Normal Mood/Affect Skin: Normal Color, Warm/Dry Lymphatic: No Adenopathy Results Lab Laboratory Tests 11/10/18 04:35: Microbiology 11/07/18 Blood Culture - Preliminary, Resulted No growth 11/07/18 Urine Culture - Final, Complete Escherichia coli Assessment/Plan Assessment/Plan Assessment/Plan Lower gi bleed diverticulosis afib tranfuse prbc as needed follow hgb and INR hold coumadin no bleeding currently discussed with Dr. Dixon and Bernardadin. We feel best to proceed with colonoscopy. Give 2 ffp to reverse INR yesterday Golytely prep tolerated npo consent for colonoscopy all other indicated procedures, she understands risks and benefits to be done today. Clinical Quality Measures DVT/VTE Risk/Contraindication: Risk Factor Score Per Nursin RFS Level Per Nursing on Admit: 4+=Very High MICHAEL ACUNA DO Nov 10, 2018 09:08
[2018-11-10] MEDS: cefTRIAXone 1,000 MG/SWFI 10 ML IV PUSH IV SCH ×2 (09:25)
[2018-11-10 09:36] LABS: INR 1.4 (0.8-1.4); PROTHROMBIN TIME PATIENT 17.2 SEC (12.2-14.7)
[2018-11-10 10:23] LABS: HEMOGLOBIN 10.1 G/DL (11.5-16.0)
--- NOTE | 2018-11-10 11:51 | Discharge Summary-Hospitalist ---
Diagnosis/Chief Complaint Date of Admission Nov 07, 2018 at 10:35 Date of Discharge Discharge Date: Nov 10, 2018 Admission Diagnosis Assessment: Acute GI bleed Chronic anticoagulation AF Valvular heart disease HTN Plan: Appreciate Dr Joel input Hold anticoagulation Monitor H/H PPI Appreciate Dr Dixon consultation Discharge Diagnosis (1) Diverticulosis of colon with hemorrhage Status: Acute (2) Atrial fibrillation Status: Chronic (3) Valvular heart disease Status: Chronic (4) Urinary tract infection Status: Acute (5) Acute blood loss anemia Status: Acute (6) Anticoagulant prescribed Status: Chronic Discharge Summary Discharge Physical Exam Allergies: Coded Allergies: Penicillins (Verified Allergy, Unknown, 11/07/18) pineapple (Verified Allergy, Unknown, 11/09/18) Vitals & I&Os Vital Signs Date Time Temp Pulse Resp B/P (MAP) Pulse Ox O2 Delivery O2 Flow Rate FiO2 11/10/18 17:48 60 20 158/66 98 Room Air 11/10/18 17:25 98.1 11/10/18 16:20 10 11/10/18 08:45 21 General Appearance: No Apparent Distress, WD/WN, Chronically ill Cardiovascular: No Edema, No Gallop, No JVD, No Murmur, Normal Peripheral Pulses, Systolic Murmur, Irregularly Irregular Neurologic/Psychiatric: Alert, Oriented x3, No Motor/Sensory Deficits, Normal Mood/Affect Hospital Course Was the Problem List Reviewed?: Yes Hospital course: Patient had a lengthy hospital course when she presented with bloody stools. Patient maintain on anticoagulation for stroke prophylaxis due to atrial fibrillation and valvular heart disease. Patient was given FFP for INR reversal. Multiple colonic stools ensued but did not have any clinical decompensation. She did not require any transfusions except for FFP. She underwent colonoscopy by Dr. Joel and will be restarted on anticoagulation pending further recommendations from Dr. Joel. Labs (last 24 hrs) Microbiology 11/07/18 Blood Culture - Preliminary, Resulted No growth 11/09/18 MRSA Screen - Final, Complete MRSA not isolated 11/07/18 Urine Culture - Final, Complete Escherichia coli Patient resulted labs reviewed. Pending Labs Discussion & Recommendations Discharge Planning: <30 minutes discharge planning Discharge Home Medications: Active Scripts Active Reported Gabapentin 100 Mg Capsule 200 Mg PO DAILY TAKES 2 (100MG) CAPSULES Warfarin Sodium 4 Mg Tablet 6 Mg PO FR TAKES 1 & 1/2 (4MG) TABLET Warfarin Sodium 4 Mg Tablet 4 Mg PO SUMOTUWETHSA Potassium Chloride 20 Meq Tab.er.prt 40 Meq PO DAILY LAST FILLED #180 04-18-18 TAKES 2 (20MEQ) TABLETS Valsartan 160 Mg Tablet 160 Mg PO DAILY Amlodipine Besylate 5 Mg Tablet 5 Mg PO DAILY Furosemide 20 Mg Tablet 20 Mg PO HS Amiodarone HCl 200 Mg Tablet 100 Mg PO DAILY TAKES 1/2 (200MG) TABLET Levothyroxine Sodium 75 Mcg Tablet 75 Mcg PO DAILY Cartia Xt (Diltiazem HCl) 240 Mg Cap.er.24h 240 Mg PO DAILY Instructions to patient/family Please see electronic discharge instructions given to patient. Clinical Quality Measures DVT/VTE Risk/Contraindication: Risk Factor Score Per Nursin RFS Level Per Nursing on Admit: 4+=Very High Problem Qualifiers (1) Atrial fibrillation: Atrial fibrillation type: chronic Qualified Codes: I48.2 - Chronic atrial fibrillation (2) Urinary tract infection: Urinary tract infection type: acute cystitis Hematuria presence: without hematuria Qualified Codes: N30.00 - Acute cystitis without hematuria DAYA VILLEGAS DO Nov 10, 2018 11:51
--- NOTE | 2018-11-10 14:55 | NUR ---
PATIENT LEFT FLOOR VIA WHEELCHAIR FOR COLONOSCOPY
[2018-11-10] MEDS ORDERED: LACTATED RINGERS 1,000 ML IV ONE ×2 (15:02→15:45)
[2018-11-10] MEDS ORDERED: PROPOFOL INJECTION 50 ML IV ONE (15:18)
--- NOTE | 2018-11-10 16:30 | Progress Note-Post Operative ---
Post-Operative Progess Note Surgeon (s)/Gear Setter (s) Surgeon MICHAEL ACUNA DO Gear Setter: na Pre-Operative Diagnosis lower gi bleed Post-Operative Diagnosis diverticulosis Procedure & Operative Findings Date of Procedure 11/10/18 Procedure Performed/Findings flexible sigmoidoscopy, incomplete colonoscopy Anesthesia Type per [facility] Estimated Blood Loss Estimated blood loss (mL): none Specimens/Packing Specimens Removed none MICHAEL ACUNA DO Nov 10, 2018 16:30
--- NOTE | 2018-11-10 18:38 | Diagnostic Imaging Report ---
PROCEDURE: CT abdomen and pelvis without contrast. TECHNIQUE: Multiple contiguous axial images were obtained through the abdomen and pelvis without the use of intravenous contrast. Auto Exposure Controls were utilized during the CT exam to meet ALARA standards for radiation dose reduction. INDICATION: Incomplete colonoscopy. FINDINGS: CT scanning of the abdomen and pelvis was obtained with rectal contrast. Patient is supine and prone. FINDINGS: Diverticula are present in the sigmoid colon. There is spasm of the sigmoid colon, especially on the supine images. It is better evaluated on the prone images which demonstrate no definite masses. Some metallic artifact limits visualization of the hepatic flexure of the colon but appears grossly unremarkable. There is some reflux into the terminal ileum. There is fluid dependently in the cecum. The lung bases are clear. Liver, gallbladder, spleen, pancreas, adrenal glands, and kidneys appear normal. There is diffuse arteriosclerosis. Urinary bladder is normal. No hernias are present. Degenerative changes are present within the spine. IMPRESSION: 1. Diverticula are present within the sigmoid colon. 2. The contrast within the colon at the level of the hepatic flexure is quite dense creating streak artifact. Dictated by: Dictated on workstation # [id number]
--- NOTE | 2018-11-11 05:07 | OPERATIVE REPORT ---
DATE OF SERVICE: 11/10/2018 PREOPERATIVE DIAGNOSIS: Lower GI bleed. POSTOPERATIVE DIAGNOSIS: Diverticulosis. PROCEDURE: Flexible sigmoidoscopy, incomplete colonoscopy. SURGEON: Michael Joel DO ANESTHESIA: Per MDA. ESTIMATED BLOOD LOSS: None. COMPLICATIONS: None. INDICATIONS: The patient is an 78-year-old female with lower GI bleed. She understands risks and benefits of procedure and wished to proceed with procedure. Consent was signed on the chart. DESCRIPTION OF PROCEDURE: The patient was taken to the endoscopy suite, placed in the left lower recumbent position. Timeout was performed. Digital rectal exam was performed. No palpable polyps, masses or ulcerations. Scope was inserted into the rectum and advanced through the rectum into the sigmoid colon noting significant diverticulosis present. Scope was continued to advance. Significant bend in the colon feels fixed and scope was unable to be advanced any further. The patient was repositioned and reattempted it in the same spot. The scope was then able to be advanced past this portion. Again, the patient was again repositioned another two times. Scope was unable to be advanced past this portion. Scope was then slowly retracted back until completely removed, noting no other pathology. The gastroscope was then used and inserted in the rectum and was continued to be advanced through the rectum and into the sigmoid colon until they came to the same positioning. The scope was unable to be again passed through this area. The patient with the gastroscope was repositioned multiple times without any success getting past this turn. At this point, it was determined that it would be unable to be passed through this point. Scope was then slowly retracted back just noting diverticulosis. No other pathology noted. Once in the rectum, scope was inserted and removed multiple times, noting no other pathology. Scope was then completely removed at that time. RECOMMENDATIONS: The patient to go for either barium enema or CT scan with rectal contrast for further evaluation of the colon. Job ID: [id number] DocumentID: [id number] Dictated Date: 11/10/2018 16:28:54 Hospitalist Medical Director Date: 11/11/2018 03:48:06 Dictated By: MICHAEL JOEL DO
== END 2018-11-10 17:49 | disposition home or self-care (01) | DRG 378 ==
LOC: EDUNIT# 07:02 → ER 07:04 → 4TH 10:35
PROVIDERS: ADMIT Internal Medicine; ATTEND Internal Medicine
PROC: 0DJD8ZZ Inspection of Lower Intestinal Tract, Via Natural or Artificial Opening Endoscopic (ICD-10-PCS; principal; 2018-11-10 10:40)
DX: K57.91 Diverticulosis of intestine, part unspecified, without perforation or abscess with bleeding (principal); N30.00 Acute cystitis without hematuria; D62 Acute posthemorrhagic anemia; I48.0 Paroxysmal atrial fibrillation; I25.10 Atherosclerotic heart disease of native coronary artery without angina pectoris; E78.00 Pure hypercholesterolemia, unspecified; I10 Essential (primary) hypertension; E03.9 Hypothyroidism, unspecified; H91.93 Unspecified hearing loss, bilateral; I65.23 Occlusion and stenosis of bilateral carotid arteries; Z95.0 Presence of cardiac pacemaker; Z95.2 Presence of prosthetic heart valve; Z95.5 Presence of coronary angioplasty implant and graft; Z79.01 Long term (current) use of anticoagulants; Z86.19 Personal history of other infectious and parasitic diseases; Z97.4 Presence of external hearing-aid
CPT/HCPCS: 36415; 74176; 80048; 80053; 81000; 83605; 85014; 85018; 85025; 85610; 85730; 86900; 86901; 87040; 87077; 87081; 87088; 87186; 94760; 96361; 96374

== ENCOUNTER → 2018-12-13 | Outpatient (CLI) | payer MEDICARE ==
[~2018-12-13] MED LIST changes: +AMIO200T4 PO; +AMLO5TAB9 PO; +ASPI-983 PO; +CARV12.53 PO; +FURO20TA4 PO; +GABA-486 PO; +LEVO75TA6 PO; +LOSA100T57 PO; +POTA20TA15 PO; +VALS160T29 PO; +VALS320T15 PO; +WARF2TAB PO; +WARF4TAB70 PO
== END ==
LOC: LABNPT 16:40
PROVIDERS: ATTEND Internal Medicine
DX: R19.7 Diarrhea, unspecified (principal)
CPT/HCPCS: 87015; 87045; 87046; 87899

== ENCOUNTER → 2018-12-14 | Outpatient (CLI) | payer MEDICARE | LOC: LABNPT 08:02 | PROVIDERS: ATTEND Internal Medicine | DX: R19.7 Diarrhea, unspecified (principal) | CPT/HCPCS: 87324; 87449 ==

== ENCOUNTER → 2019-07-24 | Outpatient (CLI) | payer MEDICARE ==
--- NOTE | 2019-07-24 13:06 | Diagnostic Imaging Report ---
INDICATION: Routine screening. COMPARISON: 05/23/2014. TECHNIQUE: 2D and 3D bilateral screening mammography was performed with CAD. FINDINGS: Both breasts are heterogeneously dense, limiting the sensitivity of mammography. A cardiac monitoring device has been placed and overlies the medial left breast. Benign parenchymal and vascular calcifications are identified bilaterally. A mixed density lesion in the upper right breast appears stable. No new mass or malignant appearing microcalcifications are seen. The axillae are unremarkable. IMPRESSION: No mammographic features suspicious for malignancy are identified. ACR BI-RADS Category 2: Benign findings. Result letter will be mailed to the patient. Note: At least 10% of breast cancer is not imaged by mammography. Dictated by: Dictated on workstation # [id number]
== END ==
LOC: RAD 08:58
PROVIDERS: ATTEND Internal Medicine
DX: Z12.31 Encounter for screening mammogram for malignant neoplasm of breast (principal)
CPT/HCPCS: 77067

== ENCOUNTER → 2019-09-06 | Outpatient (CLI) | payer MEDICARE | LOC: CARD 13:21 | PROVIDERS: ATTEND Internal Medicine Cardiovascular Disease | DX: I08.2 Rheumatic disorders of both aortic and tricuspid valves (principal); I25.10 Atherosclerotic heart disease of native coronary artery without angina pectoris; I10 Essential (primary) hypertension; E78.5 Hyperlipidemia, unspecified; I48.0 Paroxysmal atrial fibrillation | CPT/HCPCS: 93306 ==

== ENCOUNTER 2020-02-27 13:55 | Emergency (ER) | payer MEDICARE ==
[~2020-02-27] VITALS: Ht 175.2 cm; Wt 79.5 kg
[2020-02-27 15:00] LABS: BASOPHILS # (AUTO) 0.1 10^3/uL (0.0-0.1); BASOPHILS % (AUTO) 1 % (0-10); EOSINOPHILS # (AUTO) 0.3 10^3/uL (0.0-0.3); EOSINOPHILS % (AUTO) 3 % (0-10); HEMATOCRIT 29 % (35-52); LYMPHOCYTES # (AUTO) 1.8 X 10^3 (1.0-4.0); LYMPHOCYTES % (AUTO) 18 % (12-44); MEAN CORPUSCULAR HEMOGLOBIN 30 PG (25-34); MEAN CORPUSCULAR HGB CONC 32 G/DL (32-36); MEAN CORPUSCULAR VOLUME 96 FL (80-99); MEAN PLATELET VOLUME 8.8 FL (7.4-10.4); MONOCYTES # (AUTO) 1.1 X 10^3 (0.0-1.0); MONOCYTES % (AUTO) 11 % (0-12); NEUTROPHILS # (AUTO) 6.6 X 10^3 (1.8-7.8); NEUTROPHILS % (AUTO) 67 % (42-75); PLATELET COUNT 383 10^3/uL (130-400); RED CELL DISTRIBUTION WIDTH 14.2 % (10.0-14.5); WHITE BLOOD COUNT 9.9 10^3/uL (4.3-11.0)
--- NOTE | 2020-02-27 15:02 | ED Fall/Injury ---
General Chief Complaint: Trauma-Non Activation Stated Complaint: FALL Nursing Triage Note: AMB TO ED WITH SVETLANA PATIENT REPORTS THAT SHE HAS BEEN TRIPPING AND FALLING LAST FALL WAS ON TUESDAY. BRUSING NOTED TO L SIDE AND R KNEE KNEE SWOLLEN BUT PATIENT REPORTS IT IS ALWAYS SWOLLEN. SINCE SURG. Source: patient Exam Limitations: no limitations History of Present Illness Date Seen by Provider: Feb 27, 2020 Time Seen by Provider: 14:59 Initial Comments To ER with reports of several falls over the past week related to tripping over landscape lighting. She has some bruising between her nose but no head or neck pain. Her biggest complaint of pain is to the right lateral thigh (though she is still ambulatory) and to the suprapubic/left lower abdominal region where there is some bruising. Occurred: this evening Severity: moderate Loss of Consciousness: no loss of consciousness Allergies and Home Medications Allergies Coded Allergies: Penicillins (Verified Allergy, Unknown, 11/07/18) pineapple (Verified Allergy, Unknown, 11/09/18) Home Medications Amiodarone HCl 200 Mg Tablet, 100 MG PO DAILY, (Reported) TAKES 1/2 (200MG) TABLET Amlodipine Besylate 5 Mg Tablet, 5 MG PO DAILY, (Reported) Diltiazem HCl 240 Mg Cap.er.24h, 240 MG PO DAILY, (Reported) Furosemide 20 Mg Tablet, 20 MG PO HS, (Reported) Gabapentin 100 Mg Capsule, 200 MG PO DAILY, (Reported) TAKES 2 (100MG) CAPSULES Levothyroxine Sodium 75 Mcg Tablet, 75 MCG PO DAILY, (Reported) Potassium Chloride 20 Meq Tab.er.prt, 40 MEQ PO DAILY, (Reported) LAST FILLED #180 04-18-18 TAKES 2 (20MEQ) TABLETS Valsartan 160 Mg Tablet, 160 MG PO DAILY, (Reported) Warfarin Sodium 4 Mg Tablet, 4 MG PO SuMoTuWeThSa, (Reported) Warfarin Sodium 4 Mg Tablet, 6 MG PO Fr, (Reported) TAKES 1 & 1/2 (4MG) TABLET Patient Home Medication List Home Medication List Reviewed: Yes Review of Systems Review of Systems Constitutional: see HPI Eyes: No Symptoms Reported Respiratory: no symptoms reported Cardiovascular: no symptoms reported Musculoskeletal: no symptoms reported Skin: see HPI Past Rmhapsv-Xojukk-Opmphx Hx Patient Social History Recent Foreign Travel: No Contact w/Someone Who Travel: No Recent Infectious Disease Expo: No Recent Hopitalizations: No Immunizations Up To Date Tetanus Booster (TDap): Unknown PED Vaccines UTD: No Date of Pneumonia Vaccine: Apr 12, 2018 Date of Influenza Vaccine: Apr 12, 2018 Seasonal Allergies Seasonal Allergies: Yes Past Medical History Surgeries: Yes (RIGHT INGUINAL HERNIA REPAIR, 1979 RIGHT KNEE SURGERY, ANKLE 1999) Coronary Stent, Pacemaker Respiratory: No Tuberculosis Cardiac: Yes (PACEMAKER, VALVE REPLACED) Atrial Fibrillation, High Cholesterol, Hypertension Neurological: No Reproductive Disorders: No Female Reproductive Disorders: Denies Sexually Transmitted Disease: No HIV/AIDS: No Genitourinary: No Gastrointestinal: No Musculoskeletal: No Endocrine: Yes Hypothyroidsim HEENT: Yes Cataract Hearing Impairment: Hard of Hearing, Hearing Aide Right, Hearing Aide Left Cancer: No Psychosocial: No (HX OF DEPRESSION YEARS AGO) Integumentary: No Blood Disorders: No Adverse Reaction/Blood Tranf: No Family Medical History Patient reports no known family medical history. No Pertinent Family Hx Physical Exam Vital Signs Vital Signs - First Documented 02/27/20 14:08 Pulse 87 Resp 18 B/P (MAP) 175/65 (101) Pulse Ox 98 O2 Delivery Room Air Capillary Refill : Less Than 3 Seconds Height, Weight, BMI Height: 5'9.00" Weight: 171lbs. 9.0oz. 77.409345gv; 25.00 BMI Method:Stated General Appearance: WD/WN, no apparent distress, other (ambulatory into the emergency room carrying her cane rather than walking with it. Minor bruising over the bridge of her nose. Minor bruising to the medial right knee and medial right ankle. Bruising to the lateral right thigh and bruising to the left inguinal/suprapubic region.) Neck: non-tender, full range of motion Respiratory: no respiratory distress, no accessory muscle use Gastrointestinal: normal bowel sounds, soft Extremities: normal range of motion, non-tender, other (range of motion with some ecchymosis as described.) Neurologic/Psychiatric: alert, normal mood/affect, oriented x 3 Skin: normal color, warm/dry Romana Coma Score Best Eye Response: (4) Open Spontaneously Best Verbal Response: (5) Oriented Best Motor Response: (6) Obeys Commands [place] Total: 15 Progress/Results/Core Measures Results/Orders Lab Results Laboratory Tests Test 02/27/20 14:53 02/27/20 14:55 02/27/20 16:34 Range/Units White Blood Count 9.9 4.3-11.0 10^3/uL Red Blood Count 2.97 L 4.35-5.85 10^6/uL Hemoglobin 9.0 L 11.5-16.0 G/DL Hematocrit 29 L 35-52 % Mean Corpuscular Volume 96 80-99 FL Mean Corpuscular Hemoglobin 30 25-34 PG Mean Corpuscular Hemoglobin Concent 32 32-36 G/DL Red Cell Distribution Width 14.2 10.0-14.5 % Platelet Count 383 130-400 10^3/uL Mean Platelet Volume 8.8 7.4-10.4 FL Neutrophils (%) (Auto) 67 42-75 % Lymphocytes (%) (Auto) 18 12-44 % Monocytes (%) (Auto) 11 0-12 % Eosinophils (%) (Auto) 3 0-10 % Basophils (%) (Auto) 1 0-10 % Neutrophils # (Auto) 6.6 1.8-7.8 X 10^3 Lymphocytes # (Auto) 1.8 1.0-4.0 X 10^3 Monocytes # (Auto) 1.1 H 0.0-1.0 X 10^3 Eosinophils # (Auto) 0.3 0.0-0.3 10^3/uL Basophils # (Auto) 0.1 0.0-0.1 10^3/uL Sodium Level 141 135-145 MMOL/L Potassium Level 4.0 3.6-5.0 MMOL/L Chloride Level 105 98-107 MMOL/L Carbon Dioxide Level 26 21-32 MMOL/L Anion Gap 10 5-14 MMOL/L Blood Urea Nitrogen 21 H 7-18 MG/DL Creatinine 1.25 0.60-1.30 MG/DL Estimat Glomerular Filtration Rate 41 BUN/Creatinine Ratio 17 Glucose Level 135 H 70-105 MG/DL Calcium Level 8.7 8.5-10.1 MG/DL My Orders Orders - EVANGELISTA PITTS APRN Cbc With Automated Diff (02/27/20 14:47) Basic Metabolic Panel (02/27/20 14:47) Ed Iv/Invasive Line Start (02/27/20 14:47) Ct Head/Cervical Spine Wo (02/27/20 14:47) Knee, Right, 3 Views (02/27/20 14:47) Ankle, Right, 3 Views (02/27/20 14:47) Ct Abdomen/Pelvis Wo (02/27/20 15:27) Protime With Inr (02/27/20 16:20) Vital Signs/I&O 02/27/20 14:08 Pulse 87 Resp 18 B/P (MAP) 175/65 (101) Pulse Ox 98 O2 Delivery Room Air Blood Pressure Mean: 101 Departure Impression Primary Impression: Bruise Additional Impressions: Fall at home Intramuscular hematoma Disposition: HOME, SELF-CARE Condition: Stable Departure-Patient Inst. Decision time for Depature: 16:44 Referrals: JOAQUÍN PRATHER MD (PCP) Primary Care Physician Patient Instructions: HEMATOMA Add. Discharge Instructions: 1. Follow-up with Dr. Prather. Return to ER for any concerns. All discharge instructions reviewed with patient and/or family. Voiced understanding. EVANGELISTA PITTS LATH HAND Feb 27, 2020 15:02
[2020-02-27 15:15] LABS: CALCIUM 8.7 MG/DL (8.5-10.1)
[2020-02-27 15:20] LABS: CREATININE SERUM 1.25 MG/DL (0.60-1.30)
--- NOTE | 2020-02-27 16:09 | Diagnostic Imaging Report ---
EXAMINATION: CT Abdomen Pelvis without contrast. TECHNIQUE: Multiple contiguous axial images were obtained through the abdomen and pelvis without the use of intravenous contrast. All CT scans use one or more of the following dose optimizing techniques: automated exposure control, MA and/or KvP adjustment based on a patient size and exam type, or iterative reconstruction. HISTORY: Fall, left hip pain. COMPARISON: 11/10/2018. FINDINGS: Limited views of the lower thorax show an enlarged heart with pacemaker leads and mitral annular calcifications. The liver is normal without focal lesion. There is no biliary ductal dilation. Gallbladder is normal. There is a stable 11 mm cyst in the uncinate process. Spleen is normal. Adrenal glands are normal. The kidneys are normal. There is no hydronephrosis. Urinary bladder is normal. Visualized bowel is normal in caliber without obstruction or inflammation. There is an intramuscular hematoma in the left gluteus medius with a subcutaneous hematoma in left buttock. The subcutaneous hematoma measures 3.6 x 3.1 cm. No free fluid or air. No abdominal or pelvic lymphadenopathy. Aorta is normal in caliber without aneurysm. There are no suspicious osseus lesions. No fracture is seen. IMPRESSION: 1. Left gluteus medius intramuscular hematoma and subcutaneous hematoma without underlying fracture. Dictated by: Dictated on workstation # [id number]
--- NOTE | 2020-02-27 16:12 | Diagnostic Imaging Report ---
INDICATION: Falls with head and neck pain. TECHNIQUE: Multiple contiguous axial images were obtained through the brain and cervical spine without the use of intravenous contrast. Sagittal and coronal reformations through the cervical spine were then performed. Auto Exposure Controls were utilized during the CT exam to meet ALARA standards for radiation dose reduction. CT BRAIN FINDINGS: There are no extra-axial fluid collections. No intracranial hemorrhage. No mass effect or midline shift. The ventricles are normal in size and position. There are mild low-density changes in the deep white matter, compatible with chronic ischemic change. There is no acute-appearing finding. Calvarial windows were normal. CT CERVICAL SPINE FINDINGS: There was no evidence of cervical spine fracture. There is no subluxation or malalignment. There is disc space narrowing at C3-C4 and C5-C6 and C6-C7 with osteophyte formation. There is no acute-appearing abnormality. IMPRESSION: 1. CT brain shows no acute intracranial hemorrhage. There is some low-density change in the deep white matter, compatible with chronic ischemic change. 2. CT cervical spine shows diffuse degenerative findings with no acute fracture or subluxation. Dictated by: Dictated on workstation # [id number]
--- NOTE | 2020-02-27 16:33 | Diagnostic Imaging Report ---
Indication: Right knee injury from a fall 3 views of the right knee show no fracture, dislocation or pathologic effusion. IMPRESSION: Negative right knee Dictated by: Dictated on workstation # [id number]
--- NOTE | 2020-02-27 16:33 | Diagnostic Imaging Report ---
Indication: Right ankle injury 3 views of the right ankle show no fracture, dislocation or other acute abnormalities. IMPRESSION: Negative right ankle Dictated by: Dictated on workstation # [id number]
[2020-02-27 16:52] LABS: INR 3.3 (0.8-1.4)
[2020-02-27 17:06] VITALS: BP 149/64
== END 2020-02-27 16:58 | disposition home or self-care (01) ==
LOC: EDUNIT# 13:55 → ER 13:56
DX: S00.33XA Contusion of nose, initial encounter (principal); S80.01XA Contusion of right knee, initial encounter; S30.1XXA Contusion of abdominal wall, initial encounter; S90.01XA Contusion of right ankle, initial encounter; S70.11XA Contusion of right thigh, initial encounter; I10 Essential (primary) hypertension; I48.91 Unspecified atrial fibrillation; R40.2410 Glasgow coma scale score 13-15, unspecified time; E03.9 Hypothyroidism, unspecified; Z79.890 Hormone replacement therapy; Z95.0 Presence of cardiac pacemaker; Z95.5 Presence of coronary angioplasty implant and graft; Z88.0 Allergy status to penicillin; Z79.01 Long term (current) use of anticoagulants; W01.0XXA Fall on same level from slipping, tripping and stumbling without subsequent striking against object, initial encounter; Y92.009 Unspecified place in unspecified non-institutional (private) residence as the place of occurrence of the external cause
CPT/HCPCS: 36415; 70450; 72125; 73562; 73610; 74176; 80048; 85025; 85610

== ENCOUNTER 2020-04-18 08:45 | Outpatient (RCR) | payer MEDICARE ==
[~2020-04-18 08:45] MED LIST changes: +ASPI-1238 PO; -ASPI-983 PO; +WARF4TAB3 PO; -WARF4TAB70 PO
== END 2020-04-20 | disposition home or self-care (01) ==
PROVIDERS: ATTEND Internal Medicine
DX: R26.81 Unsteadiness on feet (principal); R29.898 Other symptoms and signs involving the musculoskeletal system; Z91.81 History of falling

== ENCOUNTER 2020-07-16 08:17 | Outpatient (RCR) | payer MEDICARE ==
[~2020-07-16 08:17] MED LIST changes: -AMIO200T4 PO; +AMIO200T6 PO; +AMLO-250 PO; -AMLO5TAB9 PO
== END 2020-07-21 | disposition home or self-care (01) ==
PROVIDERS: ATTEND Internal Medicine
DX: R26.81 Unsteadiness on feet (principal); R29.898 Other symptoms and signs involving the musculoskeletal system; R53.1 Weakness; Z91.81 History of falling

== ENCOUNTER 2020-07-26 11:16 | Emergency (ER) | payer MEDICARE ==
[~2020-07-26] VITALS: Ht 175.2 cm; Wt 77.7 kg
--- NOTE | 2020-07-26 12:02 | ED Upper Extremity ---
General Chief Complaint: Upper Extremity Stated Complaint: R ARM SWELLING Nursing Triage Note: AMB TO ROOM WITH PAIN AND SWELLIN TO R FOREARM REPORT HIT IT ON DOOR FRAME LAST NIGHT. SWELLING AND BRUSING NOTED. Nursing Sepsis Screen: No Definite Risk Source: patient Exam Limitations: no limitations History of Present Illness Date Seen by Provider: Jul 26, 2020 Time Seen by Provider: 12:00 Initial Comments to ER by private vehicle with reports of dorsal right forearm swelling and pain. She didn't initially recall any injury but she now does recall lightly smacking it on part of her porch last night. She believed it was a trivial injury and shouldn't have caused this much swelling. She is on warfarin. Onset: just prior to arrival Severity: moderate Pain/Injury Location: right forearm Method of Injury: direct blow Modifying Factors: Worse With Movement Allergies and Home Medications Allergies Coded Allergies: Penicillins (Verified Allergy, Unknown, 11/07/18) pineapple (Verified Allergy, Unknown, 11/09/18) Home Medications Amiodarone HCl 200 Mg Tablet, 100 MG PO DAILY, (Reported) TAKES 1/2 (200MG) TABLET Amlodipine Besylate 5 Mg Tablet, 5 MG PO DAILY, (Reported) Diltiazem HCl 240 Mg Cap.er.24h, 240 MG PO DAILY, (Reported) Furosemide 20 Mg Tablet, 20 MG PO HS, (Reported) Gabapentin 100 Mg Capsule, 200 MG PO DAILY, (Reported) TAKES 2 (100MG) CAPSULES Levothyroxine Sodium 75 Mcg Tablet, 75 MCG PO DAILY, (Reported) Potassium Chloride 20 Meq Tab.er.prt, 40 MEQ PO DAILY, (Reported) LAST FILLED #180 04-18-18 TAKES 2 (20MEQ) TABLETS Valsartan 160 Mg Tablet, 160 MG PO DAILY, (Reported) Warfarin Sodium 4 Mg Tablet, 4 MG PO SuMoTuWeThSa, (Reported) Warfarin Sodium 4 Mg Tablet, 6 MG PO Fr, (Reported) TAKES 1 & 1/2 (4MG) TABLET Patient Home Medication List Home Medication List Reviewed: Yes Review of Systems Constitutional: see HPI EENTM: see HPI Respiratory: no symptoms reported Cardiovascular: no symptoms reported Genitourinary: no symptoms reported Musculoskeletal: see HPI Skin: no symptoms reported Past Zytnozz-Tsdafr-Eecwnf Hx Patient Social History Alcohol Use: Occasionally Uses Recreational Drug Use: No Smoking Status: Former Smoker Recent Foreign Travel: No Contact w/Someone Who Travel: No Recent Infectious Disease Expo: No Recent Hopitalizations: No Immunizations Up To Date Tetanus Booster (TDap): Unknown PED Vaccines UTD: No Date of Pneumonia Vaccine: Apr 12, 2018 Date of Influenza Vaccine: Apr 12, 2018 Seasonal Allergies Seasonal Allergies: Yes Past Medical History Surgeries: Yes (RIGHT INGUINAL HERNIA REPAIR, 1979 RIGHT KNEE SURGERY, ANKLE 1999) Coronary Stent, Pacemaker Respiratory: No Tuberculosis Cardiac: Yes (PACEMAKER, VALVE REPLACED) Atrial Fibrillation, High Cholesterol, Hypertension Neurological: No Reproductive Disorders: No Female Reproductive Disorders: Denies Sexually Transmitted Disease: No HIV/AIDS: No Genitourinary: No Gastrointestinal: No Musculoskeletal: No Endocrine: Yes Hypothyroidsim HEENT: Yes Cataract Hearing Impairment: Hard of Hearing, Hearing Aide Right, Hearing Aide Left Cancer: No Psychosocial: No (HX OF DEPRESSION YEARS AGO) Integumentary: No Blood Disorders: No Adverse Reaction/Blood Tranf: No Family Medical History Patient reports no known family medical history. No Pertinent Family Hx Physical Exam Vital Signs Vital Signs - First Documented 07/26/20 11:28 Temp 36.2 Pulse 79 Resp 18 B/P (MAP) 181/87 (118) Pulse Ox 94 O2 Delivery Room Air Capillary Refill : Less Than 3 Seconds Height, Weight, BMI Height: 5'9.00" Weight: 171lbs. 9.0oz. 77.715534km; 25.00 BMI Method:Stated General Appearance: WD/WN, no apparent distress HEENT: PERRL/EOMI, normal ENT inspection Neck: non-tender, full range of motion Respiratory: no respiratory distress, no accessory muscle use Shoulder: normal inspection, non-tender Elbow/Forearm: Right (there is about 8 x 15 cm hematoma to the dorsal ulnar side of the forearm well-demarcated but no other swelling of the upper extremity.) Wrist: Yes normal inspection, Yes non-tender Hand: normal inspection, non-tender Neurologic/Psychiatric: alert, normal mood/affect, oriented x 3 Skin: normal color, warm/dry Progress/Results/Core Measures Results/Orders Lab Results Laboratory Tests Test 07/26/20 12:15 Range/Units My Orders Orders - EVANGELISTA PITTS APRN Protime With Inr (07/26/20 11:59) Forearm, Right, 2 Views (07/26/20 11:59) Vital Signs/I&O 07/26/20 11:28 Temp 36.2 Pulse 79 Resp 18 B/P (MAP) 181/87 (118) Pulse Ox 94 O2 Delivery Room Air Blood Pressure Mean: 118 Departure Impression Primary Impression: Traumatic hematoma of forearm Disposition: HOME, SELF-CARE Condition: Stable Departure-Patient Inst. Decision time for Depature: 12:02 Referrals: JOAQUÍN PRATHER MD (PCP/Family) Primary Care Physician Patient Instructions: HEMATOMA Add. Discharge Instructions: 1. Ice pack to this area. Follow-up with Dr. Prather next week. Return to ER for any concerns. 2. Your INR was a little high at 5.4. With this in mind you should skip 2 doses of Coumadin. Follow-up with your doctor next week for recheck. All discharge instructions reviewed with patient and/or family. Voiced understanding. EVANGELISTA PITTS APRN Jul 26, 2020 12:02
--- NOTE | 2020-07-26 12:08 | NUR ---
LAB HERE TO DRAW BLOOD.
--- NOTE | 2020-07-26 12:41 | NUR ---
X RAY DONE AT BEDSIDE
[2020-07-26 12:43] LABS: INR 5.5 (0.8-1.4); PROTHROMBIN TIME PATIENT 50.2 SEC (12.2-14.7)
[2020-07-26 12:51] VITALS: BP 186/85
--- NOTE | 2020-07-26 13:05 | Diagnostic Imaging Report ---
INDICATION: Swelling, pain FINDINGS: There is soft tissue swelling over the proximal 3rd of the forearm seen dorsally in the lateral view. The bony structures however appeared unremarkable. IMPRESSION: No bony abnormality. There is soft tissue swelling noted. Dictated by: Dictated on workstation # [id number]
== END 2020-07-26 12:51 | disposition home or self-care (01) ==
LOC: EDUNIT# 11:16 → ER 11:17
DX: S50.11XA Contusion of right forearm, initial encounter (principal); I48.91 Unspecified atrial fibrillation; I10 Essential (primary) hypertension; E03.9 Hypothyroidism, unspecified; Z95.0 Presence of cardiac pacemaker; Z95.5 Presence of coronary angioplasty implant and graft; Z87.891 Personal history of nicotine dependence; Z88.0 Allergy status to penicillin; Z79.890 Hormone replacement therapy; Z79.01 Long term (current) use of anticoagulants; X58.XXXA Exposure to other specified factors, initial encounter
CPT/HCPCS: 36415; 73090; 85610

== ENCOUNTER → 2020-08-13 | Outpatient (CLI) | payer MEDICARE ==
--- NOTE | 2020-08-13 13:05 | Diagnostic Imaging Report ---
INDICATION: Fall with injury to head with headache and dizziness and nausea. TECHNIQUE: Multiple contiguous axial images were obtained through the brain without the use of intravenous contrast. Auto Exposure Controls were utilized during the CT exam to meet ALARA standards for radiation dose reduction. COMPARISON: Comparison made to 02/27/2020. FINDINGS: There are no extra-axial fluid collections. No intracranial hemorrhage. There is no mass effect or midline shift. There are mild low-density changes in the periventricular white matter, compatible with chronic ischemic change which are similar to the prior study. There is prominence of the lateral ventricles which is stable compared to baseline study of 02/27/2020. There is no acute-appearing intracranial abnormality. Calvarial windows are normal. IMPRESSION: Mild chronic changes in deep white matter and stable ventricular prominence. No acute intracranial finding. Dictated by: Dictated on workstation # [id number]
--- NOTE | 2020-08-13 13:26 | Diagnostic Imaging Report ---
PROCEDURE: CT right upper extremity without contrast. TECHNIQUE: Multiple contiguous axial images were obtained through the right upper extremity without the use of intravenous contrast. Sagittal and coronal reformations were then performed. Auto Exposure Controls were utilized during the CT exam to meet ALARA standards for radiation dose reduction. INDICATION: Fall two weeks ago with injury of the right arm. Right forearm pain and weakness. Swelling. COMPARISON: Radiographs from 07/26/2020. FINDINGS: No acute fracture is seen in the right forearm. There are mild degenerative changes seen at the right wrist and right elbow. There is no elbow joint effusion. The musculature about the forearm demonstrates no focal atrophy. There is focal soft tissue density in the subcutaneous fat posterior to the ulna in the mid forearm, which measures about 3.2 x 1.4 cm on axial imaging, and 8 cm craniocaudal. There is calcific atherosclerosis. IMPRESSION: 1. Soft tissue density in the posterior subcutaneous fat of the right forearm, most likely a hematoma. 2. No acute osseous abnormality is seen in the right forearm. There are mild degenerative changes present. Dictated by: Dictated on workstation # [id number]
== END ==
LOC: RAD 11:38
PROVIDERS: ATTEND Internal Medicine
DX: M19.041 Primary osteoarthritis, right hand (principal)
CPT/HCPCS: 70450; 73200

== ENCOUNTER 2020-09-06 12:33 | Emergency (ER) | payer MEDICARE ==
[~2020-09-06] VITALS: Ht 167 cm; Wt 72.0 kg
[2020-09-06] MEDS ORDERED: ONDANSETRON 4 MG/2 ML (SDV) Z0FRAN IVP ONE (13:00)
[2020-09-06 13:12] LABS: BASOPHILS # (AUTO) 0.1 10^3/uL (0.0-0.1); BASOPHILS % (AUTO) 1 % (0-10); EOSINOPHILS % (AUTO) 0 % (0-10); HEMATOCRIT 39 % (35-52); HEMOGLOBIN 12.4 g/dL (11.5-16.0); LYMPHOCYTES # (AUTO) 0.9 10^3/uL (1.0-4.0); LYMPHOCYTES % (AUTO) 8 % (12-44); MEAN CORPUSCULAR HEMOGLOBIN 30 pg (25-34); MEAN CORPUSCULAR HGB CONC 32 g/dL (32-36); MEAN CORPUSCULAR VOLUME 95 fL (80-99); MEAN PLATELET VOLUME 9.4 fL (9.0-12.2); MONOCYTES # (AUTO) 0.6 10^3/uL (0.0-1.0); MONOCYTES % (AUTO) 6 % (0-12); NEUTROPHILS # (AUTO) 8.8 10^3/uL (1.8-7.8); NEUTROPHILS % (AUTO) 84 % (42-75); PLATELET COUNT 331 10^3/uL (130-400); WHITE BLOOD COUNT 10.5 10^3/uL (4.3-11.0)
--- NOTE | 2020-09-06 13:13 | ED Abdominal Pain ---
General Chief Complaint: Abdominal/GI Problems Stated Complaint: STOMACH PAIN Nursing Triage Note: TO ROOM 07 WITH RIGHT SIDED ABD PAIN. STATES SHE WOKE UP WITH THE CONSTANT PAIN. STATES SHE FELL YESTERDAY ON A CHICKEN TROTH. PT ALSO STATES SHE HIT HER HEAD AND IS ON COUMADIN. Sepsis Screen: No Definite Risk Source of Information: Patient (MUNIRA NICE,MED STUDENT) History of Present Illness Date Seen by Provider: Sep 06, 2020 Time Seen by Provider: 12:43 Initial Comments Ailyn is a 79yo F who presents to the ED via private vehicle with a cc of right lower abdominal pain that started this morning. Patient says that pain is sharp and nothing makes the pain better and pain is worse with movement and hitting bumps in the car.. She says that she fell yesterday and has fallen a total of 4 times this month. She admits to having some blurred vision since her fall, a mild headache, and abdominal pain. She denies having any diarrhea, constipation, urination frequency, urinary incontinence/retention, SOB, chest pain, or new pain in any of her extremities. Patient is hard of hearing and has not learned to read lips yet. Timing/Duration: 4-6 Hours Severity/Quality: Moderate Location: RLQ, LLQ, Periumbilical Radiation: RLQ Activities at Onset: Activity (makes pain worse ) Associated Symptoms: Headache, Nausea/Vomiting Pain also had a fall and has had a persistent headache and is on blood thinners (MUNIRA NICE,MED STUDENT) Initial Comments Patient reports finishing a 7 day course of Cipro, prescribed by Dr. Prather. History of diverticulosis and patient had some bleeding, she believed it to be vaginal, but was unsure if it was rectal. Had hysterectomy in [facility] >30 years ago, unsure if ovaries were left or not. No history of cancers. Colonoscopy in 2019, negative. (JAH HICKS) Allergies and Home Medications Allergies Coded Allergies: Penicillins (Verified Allergy, Unknown, 11/07/18) pineapple (Verified Allergy, Unknown, 11/09/18) Home Medications Amiodarone HCl 200 Mg Tablet, 100 MG PO DAILY, (Reported) TAKES 1/2 (200MG) TABLET Amlodipine Besylate 5 Mg Tablet, 5 MG PO DAILY, (Reported) Diltiazem HCl 240 Mg Cap.er.24h, 240 MG PO DAILY, (Reported) Furosemide 20 Mg Tablet, 20 MG PO HS, (Reported) Gabapentin 100 Mg Capsule, 200 MG PO DAILY, (Reported) TAKES 2 (100MG) CAPSULES Hydrocodone/Acetaminophen 1 Each Tablet, 1 TAB PO Q6H PRN for PAIN-MODERATE (5- 7) Prescribed by: JAH HICKS on 09/06/20 1549 Levothyroxine Sodium 75 Mcg Tablet, 75 MCG PO DAILY, (Reported) Potassium Chloride 20 Meq Tab.er.prt, 40 MEQ PO DAILY, (Reported) LAST FILLED #180 04-18-18 TAKES 2 (20MEQ) TABLETS Valsartan 160 Mg Tablet, 160 MG PO DAILY, (Reported) Warfarin Sodium 4 Mg Tablet, 4 MG PO SuMoTuWeThSa, (Reported) Warfarin Sodium 4 Mg Tablet, 6 MG PO Fr, (Reported) TAKES 1 & 1/2 (4MG) TABLET Patient Home Medication List Home Medication List Reviewed: Yes (JAH HICKS) Review of Systems Review of Systems EENTM: Blurred Vision; No Eye Pain, No Eye Tearing Respiratory: Denies Cough, Denies Shortness of Air Cardiovascular: Denies Chest Pain, Denies Lightheadedness Gastrointestinal: Denies Constipated, Denies Diarrhea; Nausea; Denies Vomiting Genitourinary: No Symptoms Reported Musculoskeletal: no symptoms reported Psychiatric/Neurological: Headache (MUNIRA NICE MED STUDENT) Constitutional: no symptoms reported, see HPI (JAH HICKS) All Other Systems Reviewed Negative Unless Noted: Yes (JAH HICKS) Past Ysmbudm-Mzntio-Sqywxw Hx Past Med/Social Hx: Reviewed Nursing Past Med/Soc Hx (JAH HICKS) Patient Social History Recent Infectious Disease Expo: No Recent Hopitalizations: No (MUNIRA NICE MED STUDENT) Immunizations Up To Date Tetanus Booster (TDap): Unknown PED Vaccines UTD: No Date of Pneumonia Vaccine: Apr 12, 2018 Date of Influenza Vaccine: Apr 12, 2018 (MUNIRA NICE MED STUDENT) Seasonal Allergies Seasonal Allergies: Yes (MUNIRA NICE MED STUDENT) Past Medical History Surgeries: Yes (RIGHT INGUINAL HERNIA REPAIR, 1979 RIGHT KNEE SURGERY, ANKLE 1999) Coronary Stent, Pacemaker Respiratory: No Tuberculosis Cardiac: Yes (PACEMAKER, VALVE REPLACED) Atrial Fibrillation, High Cholesterol, Hypertension Neurological: No Reproductive Disorders: No Female Reproductive Disorders: Denies Sexually Transmitted Disease: No HIV/AIDS: No Genitourinary: No Gastrointestinal: No Musculoskeletal: No Endocrine: Yes Hypothyroidsim HEENT: Yes Cataract Hearing Impairment: Hard of Hearing, Hearing Aide Right, Hearing Aide Left Cancer: No Psychosocial: No (HX OF DEPRESSION YEARS AGO) Integumentary: No Blood Disorders: No Adverse Reaction/Blood Tranf: No (MUNIRA NICE MED STUDENT) Family Medical History Patient reports no known family medical history. No Pertinent Family Hx (MUNIRA NICE MED STUDENT) Physical Exam Vital Signs Vital Signs - First Documented 09/06/20 12:40 Temp 37.0 Pulse 65 Resp 16 B/P (MAP) 223/98 (139) Pulse Ox 95 O2 Delivery Room Air (JHA HICKS) Vital Signs Capillary Refill : Less Than 3 Seconds (MUNIRA NICE MED STUDENT) Height/Weight/BMI Height: 5'9.00" Weight: 171lbs. 9.0oz. 77.972047cx; 25.00 BMI Method:Stated General Appearance: no apparent distress HEENT: PERRL/EOMI; No scleral icterus (R), No scleral icterus (L), No pale conjunctivae (R), No pale conjunctivae (L) Respiratory: chest non-tender, lungs clear Cardiovascular: normal peripheral pulses Peripheral Pulses: 2+ Dorsalis Pedis (R), 2+ Left Dors-Pedis (L), 2+ Radial Pulses (R), 2+ Radial Pulses (L) Gastrointestinal: soft, guarding, rebound, tenderness Extremities: normal range of motion, no calf tenderness, pedal edema (chronic non-pitting in the right ankle/lower leg), other (chronic tenderness in the right thigh) Neurologic/Psychiatric: contract 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-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 nml as tested, no motor/sensory deficits, alert, normal mood/affect, oriented x 3 Skin: normal color, warm/dry (MUNIRA NICE,MARLY STUDENT) General Appearance: WD/WN (JAH HICKS) Progress/Results/Core Measures Results/Orders Lab Results Laboratory Tests Test 09/06/20 13:04 09/06/20 14:22 Range/Units White Blood Count 10.5 4.3-11.0 10^3/uL Red Blood Count 4.08 3.80-5.11 10^6/uL Hemoglobin 12.4 11.5-16.0 g/dL Hematocrit 39 35-52 % Mean Corpuscular Volume 95 80-99 fL Mean Corpuscular Hemoglobin 30 25-34 pg Mean Corpuscular Hemoglobin Concent 32 32-36 g/dL Red Cell Distribution Width 13.4 10.0-14.5 % Platelet Count 331 130-400 10^3/uL Mean Platelet Volume 9.4 9.0-12.2 fL Immature Granulocyte % (Auto) 1 % Neutrophils (%) (Auto) 84 H 42-75 % Lymphocytes (%) (Auto) 8 L 12-44 % Monocytes (%) (Auto) 6 0-12 % Eosinophils (%) (Auto) 0 0-10 % Basophils (%) (Auto) 1 0-10 % Neutrophils # (Auto) 8.8 H 1.8-7.8 10^3/uL Lymphocytes # (Auto) 0.9 L 1.0-4.0 10^3/uL Monocytes # (Auto) 0.6 0.0-1.0 10^3/uL Eosinophils # (Auto) 0.0 0.0-0.3 10^3/uL Basophils # (Auto) 0.1 0.0-0.1 10^3/uL Immature Granulocyte # (Auto) 0.1 0.0-0.1 10^3/uL Prothrombin Time 19.3 H 12.2-14.7 SEC INR Comment 1.6 H 0.8-1.4 Activated Partial Thromboplast Time 32 24-35 SEC Sodium Level 138 135-145 MMOL/L Potassium Level 3.8 3.6-5.0 MMOL/L Chloride Level 103 98-107 MMOL/L Carbon Dioxide Level 24 21-32 MMOL/L Anion Gap 11 5-14 MMOL/L Blood Urea Nitrogen 17 7-18 MG/DL Creatinine 1.12 0.60-1.30 MG/DL Estimat Glomerular Filtration Rate 47 BUN/Creatinine Ratio 15 Glucose Level 127 H 70-105 MG/DL Calcium Level 9.3 8.5-10.1 MG/DL Corrected Calcium 9.1 8.5-10.1 MG/DL Total Bilirubin 0.7 0.1-1.0 MG/DL Aspartate Amino Transf (AST/SGOT) 22 5-34 U/L Alanine Aminotransferase (ALT/SGPT) 15 0-55 U/L Alkaline Phosphatase 130 40-136 U/L Troponin I < 0.028 <0.028 NG/ML Total Protein 7.6 6.4-8.2 GM/DL Albumin 4.3 3.2-4.5 GM/DL Thyroid Stimulating Hormone (TSH) 1.71 0.35-4.94 UIU/ML Urine Color YELLOW Urine Clarity CLEAR Urine pH 7.5 5-9 Urine Specific [place] 1.015 L 1.016-1.022 Urine Protein TRACE H NEGATIVE Urine Glucose (UA) NEGATIVE NEGATIVE Urine Ketones TRACE H NEGATIVE Urine Nitrite NEGATIVE NEGATIVE Urine Bilirubin NEGATIVE NEGATIVE Urine Urobilinogen 0.2 < = 1.0 MG/DL Urine Leukocyte Esterase NEGATIVE NEGATIVE Urine RBC (Auto) 1+ H NEGATIVE Urine RBC 2-5 H /HPF Urine WBC NONE /HPF Urine Squamous Epithelial Cells RARE /HPF Urine Crystals NONE /LPF Urine Bacteria TRACE /HPF Urine Casts NONE /LPF Urine Mucus NEGATIVE /LPF Urine Culture Indicated NO (JAH HICKS) My Orders Orders - JAH HICKS Ua Culture If Indicated (09/06/20 12:42) Ct Abdomen/Pelvis Wo (09/06/20 12:56) Ct Head Wo (09/06/20 12:56) Cbc With Automated Diff (09/06/20 12:56) Comprehensive Metabolic Panel (09/06/20 12:56) Protime With Inr (09/06/20 12:56) Partial Thromboplastin Time (09/06/20 12:56) Thyroid Stimulating Hormone (09/06/20 12:56) Troponin I (09/06/20 12:56) Ondansetron Injection (Zofran Injectio (09/06/20 13:00) Diltiazem Injection (Cardizem Injection) (09/06/20 13:00) Ed Iv/Invasive Line Start (09/06/20 13:08) Ns Iv 1000 Ml (Sodium Chloride 0.9%) (09/06/20 13:15) Diltiazem Injection (Cardizem Injection) (09/06/20 14:15) Ct Abdomen/Pelvis W (09/06/20 14:18) Fentanyl Injection (Sublimaze Injection (09/06/20 14:30) Iohexol Injection (Omnipaque 350 Mg/Ml 1 (09/06/20 14:45) Received Contrast (Hold Metformin- Contr (09/06/20 14:45) Sodium Chloride Flush (Catheter Flush Sy (09/06/20 14:45) Ns (Ivpb) (Sodium Chloride 0.9% Ivpb Bag (09/06/20 14:45) Carcinoembryonic Antigen (09/06/20 15:13) Carvedilol Tablet (Coreg Tablet) (09/06/20 15:30) Ketorolac Injection (Toradol Injection) (09/06/20 15:30) (JAH HICKS) Medications Given in ED Current Medications Medications Dose Ordered Sig/Robbin Route Start Time Stop Time Status Last Admin Dose Admin Carvedilol 12.5 mg ONCE ONCE PO 09/06/20 15:30 09/06/20 15:32 DC 09/06/20 16:01 12.5 MG Diltiazem HCl 10 mg ONCE ONCE IVP 09/06/20 14:15 09/06/20 14:16 DC 09/06/20 14:17 10 MG Diltiazem HCl 20 mg ONCE ONCE IVP 09/06/20 13:00 09/06/20 13:01 DC 09/06/20 13:08 10 MG Fentanyl Citrate 25 mcg ONCE ONCE IVP 09/06/20 14:30 09/06/20 14:31 DC 09/06/20 14:28 25 MCG Iohexol 100 ml ONCE ONCE IV 09/06/20 14:45 09/06/20 14:46 DC 09/06/20 14:42 75 ML Ketorolac Tromethamine 30 mg ONCE ONCE IVP 09/06/20 15:30 09/06/20 15:32 DC 09/06/20 15:45 30 MG Ondansetron HCl 4 mg ONCE ONCE IVP 09/06/20 13:00 09/06/20 13:01 DC 09/06/20 13:08 4 MG Sodium Chloride 10 ml NEEDED PRN IV 09/06/20 14:45 09/06/20 16:05 DC 09/06/20 14:42 10 ML Sodium Chloride 100 ml ONCE ONCE IV 09/06/20 14:45 09/06/20 14:46 DC 09/06/20 14:42 80 ML (JAH HICKS) Vital Signs/I&O 09/06/20 09/06/20 12:40 16:05 Temp 37.0 Pulse 65 61 Resp 16 16 B/P (MAP) 223/98 (139) 221/99 Pulse Ox 95 94 O2 Delivery Room Air Room Air (JAH HICKS) Blood Pressure Mean: 139 Progress Progress Note : Time: 13:19 Progress Note This 79yo F with a history of HTN, Afib, recent falls and new RLQ pain has been seen and examined. CBC, Coags, CMP, UA, Head CT, Abd/pelvis CT ordered. (MUNIRA NICE,MED STUDENT) Progress Note : Progress Note 1405 CT inconclusive without contrast, will repeat with contrast for hydronephrosis and possible obstruction in right ureter. Labs WNL. Pain in right lower abd, Fentanyl [address] shows possible mass, compressing right ureter. Discuss admission for pain control and follow up, with consults. Patient declines need for admission. Significant other called and updated. 1530 Discussed patient and findings with Dr. Acuna, reviewed CT. Agreed with plan. Will have MRI on Tuesday and then follow up with [facility]/Urology. Unsure if Dr. Prather's office was attempting to get patient in with a specialist in [place], she reports the office did not call back with her appt. Discharge information and return precautions reviewed. All questions answered. (JAH HICKS) Diagnostic Imaging Diagonstic Imaging: CT Plain Films/CT/US/NM/MRI: head Comments NAME: JAZMÍN GRIDER [facility] REC#: [id number] PT STATUS: REG ER : 1940 PHYSICIAN: JAH HICKS ADMIT DATE: 09/06/20/ER Draft Date of Exam:09/06/20 CT HEAD WO PROCEDURE: CT head without contrast. TECHNIQUE: Multiple contiguous axial images were obtained through the brain without the use of intravenous contrast. Auto Exposure Controls were utilized during the CT exam to meet ALARA standards for radiation dose reduction. INDICATION: Fall, hit head, headache COMPARISON: 08/13/2020 FINDINGS: Mild atrophy. There is stable prominence of the ventricular system, though this is slightly out of proportion to the prominence of the sulci. No intracranial hemorrhage. Periventricular and subcortical white matter hypodensities are again identified, most consistent with mild background chronic small vessel white matter ischemic disease. No definite CT evidence of an acute ischemic infarction. The bilateral ocular lenses are absent. Otherwise, the orbits are unremarkable. The visualized paranasal sinuses are clear. The calvarium is intact. IMPRESSION: 1. Prominence of the ventricular system which is slightly out of proportion to the prominence of the sulci. This is stable from prior examinations and is favored to relate to central atrophy, though normal pressure hydrocephalus is not totally excluded. 2. Mild background chronic small vessel white matter ischemic disease. 3. No acute traumatic abnormality. Dictated on workstation # [id number] Dict: 09/06/20 1343 Trans: 09/06/20 1349 [facility] [id number] Interpreted by: ADOLPH JACQUES MD Electronically signed by: Reviewed: Reviewed by Me Diagonstic Imaging: CT Plain Films/CT/US/NM/MRI: abdomen Comments NAME: JAZMÍN GRIDER [facility] REC#: [id number] PT STATUS: REG ER : 1940 PHYSICIAN: JAH HICKS ADMIT DATE: 09/06/20/ER Draft Date of Exam:09/06/20 CT ABDOMEN/PELVIS WO PROCEDURE: CT abdomen and pelvis without contrast. TECHNIQUE: Multiple contiguous axial images were obtained through the abdomen and pelvis without the use of intravenous contrast. Auto Exposure Controls were utilized during the CT exam to meet ALARA standards for radiation dose reduction. INDICATION: Abdominal pain COMPARISON: 02/27/2020 FINDINGS: Pacer leads are partially visualized. The heart is enlarged. Prosthetic cardiac valve. Small pericardial effusion. No significant basilar pleural effusion. The minimally visualized lung bases are clear. Tiny hiatal hernia. The unenhanced liver, spleen, adrenal glands, and pancreas are unremarkable. The gallbladder is unremarkable. Moderate right-sided hydroureteronephrosis is present, which is new from the prior examination. This is associated with enlargement of the right kidney with associated right perinephric fat stranding. No definitive obstructing ureterolith is identified. The left kidney and left ureter are unremarkable. Advanced vascular calcifications without aneurysmal dilatation of the abdominal aorta. Additional scattered vascular calcifications are present. The urinary bladder is unremarkable. The uterus is not visualized, likely surgically absent. Mild colonic diverticulosis without CT evidence of diverticulitis. No bowel obstruction or pneumatosis. Surgical clips within the left inguinal region. No significant adenopathy, free air, or free fluid within the abdomen or pelvis. S-shaped curvature of the visualized thoracolumbar spine. Scattered osseous degenerative changes. Chondrocalcinosis within the pubic symphysis. No acute osseous abnormality. IMPRESSION: 1. New moderate right-sided hydroureteronephrosis with associated enlargement of the right kidney and right perinephric fat stranding. No definite obstructing ureterolith is seen. Therefore, this could relate to an obstructing non-radiopaque stone versus stricture versus mass lesion. Postcontrast imaging with delayed imaging of the ureters could help to further evaluate as clinically indicated. 2. Mild colonic diverticulosis without CT evidence of diverticulitis. 3. Additional findings, as above. Dictated on workstation # [id number] Dict: 09/06/20 1346 Trans: 09/06/20 1359 [facility] [id number] Interpreted by: ADOLPH JACQUES MD Electronically signed by: Diagonstic Imaging: CT Plain Films/CT/US/NM/MRI: abdomen, pelvis Comments NAME: JAZMÍN GRIDER [facility] REC#: [id number] PT STATUS: REG ER : 1940 PHYSICIAN: JAH HICKS ADMIT DATE: 09/06/20/ER Draft Date of Exam:09/06/20 CT ABDOMEN/PELVIS W EXAMINATION: CT Abdomen and Pelvis with intravenous contrast. TECHNIQUE: Multiple contiguous axial images were obtained through the abdomen and pelvis after the uneventful administration of intravenous contrast. All CT scans use one or more of the following dose optimizing techniques: automated exposure control, MA and/or KvP adjustment based on patient size and exam type or iterative reconstruction. HISTORY: Right-sided hydronephrosis. COMPARISON: Earlier the same day. FINDINGS: Limited views of the lower thorax show enlarged heart and pacemaker wires. The liver is normal without focal lesion. There is no biliary ductal dilation. Gallbladder is normal. Pancreas is normal. Spleen is normal. Adrenal glands are normal. There is obstruction of the right kidney with moderate to severe right-sided hydroureteronephrosis with perinephric and periureteral stranding. There is a delayed nephrogram on the right with no excretion of contrast on the delayed images. The point of obstruction is in the distal right ureter. There is a 19 x 32 mm area of soft tissue in this location which may represent the right ovary if it is present. Urinary bladder is normal. Visualized bowel is normal in caliber without obstruction or inflammation. No free fluid or air. No abdominal or pelvic lymphadenopathy. Aorta is normal in caliber without aneurysm. There are no suspicious osseus lesions. IMPRESSION: 1. Obstruction of the right distal ureter with a delayed right nephrogram and moderate to severe right-sided hydroureteronephrosis. No excretion of contrast was seen which limits evaluation of the point of obstruction. 2. At the point of obstruction there is an area of soft tissue which may represent a right ovary, loops of bowel or a mass. If the cause is not apparent on your logic evaluation, then a pelvic MRI would be helpful to further evaluate the extra-ureteral soft tissues. Dictated on workstation # [id number] Dict: 09/06/20 1452 Trans: 09/06/20 1505 [facility] [id number] Interpreted by: JOAQUÍN DOS SANTOS MD Electronically signed by: Reviewed: Reviewed by Me (JAH HICKS) Departure Impression Primary Impression: Hydronephrosis of right kidney Additional Impressions: Right sided abdominal pain Afib Qualified Codes: I48.91 - Unspecified atrial fibrillation Hypertension Qualified Codes: I10 - Essential (primary) hypertension Disposition: HOME, SELF-CARE Condition: Improved Departure-Patient Inst. Decision time for Depature: 15:30 (JAH HICKS) Referrals: MICHAEL ACUNA ELIAS A MD TAYLOR, JOHN D MD (PCP/Family) Primary Care Physician Patient Instructions: Severe Abdominal Pain, Adult (DC), Hydronephrosis, Adult (DC) Add. Discharge Instructions: Take pain prescription, as ordered. Call [phone] on Tuesday morning, as for scheduling to get MRI completed. Call Dr. Prather's office, if any issues with getting MRI scheduled Call Dr. Acuna, for follow up appt on Tue. Call Tuesday to get appt, [phone] Bryson for follow up. [phone] Diet as tolerated. Take home medication, as prescribed. Return to the Emergency Dept for new, urgent healthcare needs. All discharge instructions reviewed with patient and/or family. Voiced understanding. Scripts Hydrocodone/Acetaminophen (Hydrocodone-Acetamin 5-325 mg) 1 Each Tablet 1 TAB PO Q6H PRN for PAIN-MODERATE (5-7), #20 TAB 0 Refills Prov: JAH HICKS 09/06/20 Patient evaluated by Medical student and myself. All charting and plans reviewed by this provider. (JAH HICKS) Copy Copies To 1: JOAQUÍN PRATHER MD Copies To 2: MICHAEL ACUNA DO; JL BRYSON MD, MICAH,MED STUDENT Sep 06, 2020 13:12 JAH HICKS Sep 06, 2020 14:13
[2020-09-06] MEDS ORDERED: NS IV 1000 ML 1,000 ML IV SCH (13:15)
[2020-09-06 13:22] LABS: ALBUMIN 4.3 GM/DL (3.2-4.5); CHLORIDE 103 MMOL/L (98-107); POTASSIUM 3.8 MMOL/L (3.6-5.0); SODIUM 138 MMOL/L (135-145)
[2020-09-06 13:23] LABS: CALCIUM 9.3 MG/DL (8.5-10.1); INR 1.6 (0.8-1.4); PROTHROMBIN TIME PATIENT 19.3 SEC (12.2-14.7)
[2020-09-06 13:24] LABS: GLUCOSE 127 MG/DL (70-105); TOTAL PROTEIN 7.6 GM/DL (6.4-8.2)
[2020-09-06 13:25] LABS: CARBON DIOXIDE 24 MMOL/L (21-32)
[2020-09-06 13:26] LABS: BILIRUBIN,TOTAL 0.7 MG/DL (0.1-1.0)
[2020-09-06 13:28] LABS: ALKALINE PHOSPHATASE 130 U/L (40-136); CREATININE SERUM 1.12 MG/DL (0.60-1.30); GFR ESTIMATED 47
[2020-09-06 13:29] LABS: BUN/CREATININE RATIO 15
[2020-09-06 13:31] LABS: ALANINE AMINOTRANSFERASE 15 U/L (0-55)
--- NOTE | 2020-09-06 13:49 | Diagnostic Imaging Report ---
PROCEDURE: CT head without contrast. TECHNIQUE: Multiple contiguous axial images were obtained through the brain without the use of intravenous contrast. Auto Exposure Controls were utilized during the CT exam to meet ALARA standards for radiation dose reduction. INDICATION: Fall, hit head, headache COMPARISON: 08/13/2020 FINDINGS: Mild atrophy. There is stable prominence of the ventricular system, though this is slightly out of proportion to the prominence of the sulci. No intracranial hemorrhage. Periventricular and subcortical white matter hypodensities are again identified, most consistent with mild background chronic small vessel white matter ischemic disease. No definite CT evidence of an acute ischemic infarction. The bilateral ocular lenses are absent. Otherwise, the orbits are unremarkable. The visualized paranasal sinuses are clear. The calvarium is intact. IMPRESSION: 1. Prominence of the ventricular system which is slightly out of proportion to the prominence of the sulci. This is stable from prior examinations and is favored to relate to central atrophy, though normal pressure hydrocephalus is not totally excluded. 2. Mild background chronic small vessel white matter ischemic disease. 3. No acute traumatic abnormality. Dictated by: Dictated on workstation # [id number]
--- NOTE | 2020-09-06 14:00 | Diagnostic Imaging Report ---
PROCEDURE: CT abdomen and pelvis without contrast. TECHNIQUE: Multiple contiguous axial images were obtained through the abdomen and pelvis without the use of intravenous contrast. Auto Exposure Controls were utilized during the CT exam to meet ALARA standards for radiation dose reduction. INDICATION: Abdominal pain COMPARISON: 02/27/2020 FINDINGS: Pacer leads are partially visualized. The heart is enlarged. Prosthetic cardiac valve. Small pericardial effusion. No significant basilar pleural effusion. The minimally visualized lung bases are clear. Tiny hiatal hernia. The unenhanced liver, spleen, adrenal glands, and pancreas are unremarkable. The gallbladder is unremarkable. Moderate right-sided hydroureteronephrosis is present, which is new from the prior examination. This is associated with enlargement of the right kidney with associated right perinephric fat stranding. No definitive obstructing ureterolith is identified. The left kidney and left ureter are unremarkable. Advanced vascular calcifications without aneurysmal dilatation of the abdominal aorta. Additional scattered vascular calcifications are present. The urinary bladder is unremarkable. The uterus is not visualized, likely surgically absent. Mild colonic diverticulosis without CT evidence of diverticulitis. No bowel obstruction or pneumatosis. Surgical clips within the left inguinal region. No significant adenopathy, free air, or free fluid within the abdomen or pelvis. S-shaped curvature of the visualized thoracolumbar spine. Scattered osseous degenerative changes. Chondrocalcinosis within the pubic symphysis. No acute osseous abnormality. IMPRESSION: 1. New moderate right-sided hydroureteronephrosis with associated enlargement of the right kidney and right perinephric fat stranding. No definite obstructing ureterolith is seen. Therefore, this could relate to an obstructing non-radiopaque stone versus stricture versus mass lesion. Postcontrast imaging with delayed imaging of the ureters could help to further evaluate as clinically indicated. 2. Mild colonic diverticulosis without CT evidence of diverticulitis. 3. Additional findings, as above. Dictated by: Dictated on workstation # [id number]
[2020-09-06] MEDS ORDERED: fentaNYL INJECTION 100 MCG/2 ML AMP IVP ONE (14:30)
[2020-09-06 14:34] LABS: BILIRUBIN,URINE NEGATIVE (NEGATIVE); CLARITY,URINE CLEAR; COLOR,URINE YELLOW; GLUCOSE, URINE (UA) NEGATIVE (NEGATIVE); KETONES,URINE TRACE (NEGATIVE); LEUKOCYTE ESTERASE ,URINE NEGATIVE (NEGATIVE); NITRITE,URINE NEGATIVE (NEGATIVE); PH,URINE 7.5 (5-9); PROTEIN,URINE TRACE (NEGATIVE)
[2020-09-06] MEDS ORDERED: IOHEXOL 350 MG/ML 100 ML (OMNIPAQUE 350) VIAL IV ONE (14:45)
[2020-09-06] MEDS ORDERED: NS 100 ML (IVPB) BAG IV ONE (14:45)
[2020-09-06] MEDS ORDERED: CATHETER FLUSH 10 ML SYR IV PRN (14:45)
[2020-09-06] MEDS ORDERED: HOLD METFORMIN - RECEIVED CONTRAST 20 ML VIAL IV SCH (14:45)
[2020-09-06 14:53] LABS: BACTERIA,URINE TRACE /HPF; SQUAMOUS EPITHELIAL CELL,UR RARE /HPF
--- NOTE | 2020-09-06 15:06 | Diagnostic Imaging Report ---
EXAMINATION: CT Abdomen and Pelvis with intravenous contrast. TECHNIQUE: Multiple contiguous axial images were obtained through the abdomen and pelvis after the uneventful administration of intravenous contrast. All CT scans use one or more of the following dose optimizing techniques: automated exposure control, MA and/or KvP adjustment based on patient size and exam type or iterative reconstruction. HISTORY: Right-sided hydronephrosis. COMPARISON: Earlier the same day. FINDINGS: Limited views of the lower thorax show enlarged heart and pacemaker wires. The liver is normal without focal lesion. There is no biliary ductal dilation. Gallbladder is normal. Pancreas is normal. Spleen is normal. Adrenal glands are normal. There is obstruction of the right kidney with moderate to severe right-sided hydroureteronephrosis with perinephric and periureteral stranding. There is a delayed nephrogram on the right with no excretion of contrast on the delayed images. The point of obstruction is in the distal right ureter. There is a 19 x 32 mm area of soft tissue in this location which may represent the right ovary if it is present. Urinary bladder is normal. Visualized bowel is normal in caliber without obstruction or inflammation. No free fluid or air. No abdominal or pelvic lymphadenopathy. Aorta is normal in caliber without aneurysm. There are no suspicious osseus lesions. IMPRESSION: 1. Obstruction of the right distal ureter with a delayed right nephrogram and moderate to severe right-sided hydroureteronephrosis. No excretion of contrast was seen which limits evaluation of the point of obstruction. 2. At the point of obstruction there is an area of soft tissue which may represent a right ovary, loops of bowel or a mass. If the cause is not apparent on your logic evaluation, then a pelvic MRI would be helpful to further evaluate the extra-ureteral soft tissues. Dictated by: Dictated on workstation # [id number]
--- NOTE | 2020-09-06 15:23 | NUR ---
JAH TALKING TO THE PT'S FRIEND ON THE PHONE.
[2020-09-06] MEDS ORDERED: KETOROLAC 30 MG/ML VIAL IVP ONE (15:30)
[2020-09-06] MEDS ORDERED: CARVEDILOL 12.5 MG (COREG) TABLET PO ONE (15:30)
[2020-09-06] MEDS ORDERED: ACHD5005 PO (15:47)
--- NOTE | 2020-09-06 15:57 | NUR ---
pt's pulse ox has dropped to 89% room air twice then immediately increased to mid 90's. sabino teixeira notified.
[2020-09-06 16:05] VITALS: BP 221/99
== END 2020-09-06 16:05 | disposition home or self-care (01) ==
LOC: EDUNIT# 12:33 → ER 12:35
DX: N13.2 Hydronephrosis with renal and ureteral calculous obstruction (principal); I48.91 Unspecified atrial fibrillation; I10 Essential (primary) hypertension; E03.9 Hypothyroidism, unspecified; Z95.5 Presence of coronary angioplasty implant and graft; Z95.0 Presence of cardiac pacemaker; Z79.890 Hormone replacement therapy; Z88.0 Allergy status to penicillin; Z79.01 Long term (current) use of anticoagulants
CPT/HCPCS: 36415; 70450; 74176; 74177; 80053; 81000; 82378; 84443; 84484; 85025; 85610; 85730

== ENCOUNTER 2020-09-08 10:35 | Inpatient (IN) | payer MEDICARE ==
[~2020-09-08] VITALS: Ht 175 cm; Wt 91.0 kg
--- NOTE | 2020-09-08 11:15 | ED General ---
General Chief Complaint: Fever-Adult/Adol Stated Complaint: N/V FEVER Nursing Triage Note: PT ARRIVED PER EMS, PT HAS FEVER, PT STATES FELL AT HOME THIS AM. PT STATES HIT HEAD, DENIES LOC. PT CO OF LOW BACK PAIN. PT WAS SEEN IN ED YEST. PT HAS SL IN R AC #18. PT IS ALERT AND ORIENTATED. PT HAD ZOFRAN BY EMS. PT IS CURRENTLY ON CIPRO FOR UTI FROM DR ABRAHAM OFFICE. Nursing Sepsis Screen: No Definite Risk Source of Information: Patient Exam Limitations: No Limitations (JENISE BARRETT) History of Present Illness Date Seen by Provider: Sep 08, 2020 Time Seen by Provider: 10:40 Initial Comments Pt here by EMS after a fall today in which she states she did hit the right side of her head a little. She states that she stood up and felt the room spinning then she started to fall. She was seen in this ER yesterday for abdominal pain that was worked up showing right hydroneprhosis secondary to to a mass. She was supposed to contact Dr. Zayas today and have an MRI Scheduled today to asses the mass further as she denied wanting to be admitted at yesterdays visit to the ER. She denies any SOA, trouble breathing, runny nose, sore throat, chest pain, vomiting, diarrhea, constipation, hematuria or dysuria. She states she urinated in her briefs today and states it was a normal color. She did report being very cold last night and was found to have a fever today. She also is currently requiring 1-2L O2 nasal cannula as her O2 was 88% upon arrival. She does not use oxygen at home normally. She is currently on Ciprofloxacin at home. Timing/Duration: 1/2 Hour Severity: Mild Associated Systoms: No Chest Pain, No Cough; Fever/Chills, Headaches, Nausea/Vomiting; No Shortness of Air (JENISE BARRETT) Timing/Duration: 1/2 Hour Severity: Mild Associated Systoms: No Cough; Fever/Chills, Weakness (MOLLY ESCALANTE MD) Allergies and Home Medications Allergies Coded Allergies: Penicillins (Verified Allergy, Unknown, 11/07/18) pineapple (Verified Allergy, Unknown, 11/09/18) Home Medications Amiodarone HCl 200 Mg Tablet, 100 MG PO DAILY, (Reported) TAKES 1/2 (200MG) TABLET Amlodipine Besylate 5 Mg Tablet, 5 MG PO DAILY, (Reported) Diltiazem HCl 240 Mg Cap.er.24h, 240 MG PO DAILY, (Reported) Furosemide 20 Mg Tablet, 20 MG PO HS, (Reported) Gabapentin 100 Mg Capsule, 200 MG PO DAILY, (Reported) TAKES 2 (100MG) CAPSULES Hydrocodone/Acetaminophen 1 Each Tablet, 1 TAB PO Q6H PRN for PAIN-MODERATE (5- 7) Prescribed by: JAH HICKS on 09/06/20 1549 Levothyroxine Sodium 75 Mcg Tablet, 75 MCG PO DAILY, (Reported) Potassium Chloride 20 Meq Tab.er.prt, 40 MEQ PO DAILY, (Reported) LAST FILLED #180 04-18-18 TAKES 2 (20MEQ) TABLETS Valsartan 160 Mg Tablet, 160 MG PO DAILY, (Reported) Warfarin Sodium 4 Mg Tablet, 4 MG PO [id number], (Reported) Warfarin Sodium 4 Mg Tablet, 6 MG PO Fr, (Reported) TAKES 1 & 1/2 (4MG) TABLET Patient Home Medication List Home Medication List Reviewed: Yes (MOLLY ESCALANTE MD) Review of Systems Review of Systems Constitutional: chills, dizziness, fever EENTM: hearing loss (Chronic), blurred vision (prior to fall); No nose congestion, No throat pain Respiratory: No cough, No dyspnea on exertion, No short of breath Cardiovascular: No chest pain, No palpitations Gastrointestinal: No abdominal pain, No constipation, No diarrhea; nausea; No vomiting Genitourinary: No dysuria, No hematuria Musculoskeletal: No back pain, No muscle weakness Skin: No lumps Psychiatric/Neurological: Headache; Denies Numbness, Denies Paresthesia, Denies Tingling (JENISE BARRETT) All Other Systems Reviewed Negative Unless Noted: Yes (MOLLY ESCALANTE MD) Past Tuxdmok-Rfhkos-Cslrby Hx Past Med/Social Hx: Reviewed Nursing Past Med/Soc Hx (MOLLY ESCALANTE MD) Patient Social History Alcohol Use: Denies Use Smoking Status: Never a Smoker Recent Infectious Disease Expo: No Recent Hopitalizations: No (JENISE BARRETT) Immunizations Up To Date Tetanus Booster (TDap): Unknown PED Vaccines UTD: No Date of Pneumonia Vaccine: Apr 12, 2018 Date of Influenza Vaccine: Apr 12, 2018 (JENISE BARRETT) Seasonal Allergies Seasonal Allergies: Yes (JENISE BARRETT) Past Medical History Surgeries: Yes (RIGHT INGUINAL HERNIA REPAIR, 1979 RIGHT KNEE SURGERY, ANKLE 1999) Coronary Stent, Pacemaker Respiratory: No Tuberculosis Cardiac: Yes (PACEMAKER, VALVE REPLACED) Atrial Fibrillation, High Cholesterol, Hypertension Neurological: No Reproductive Disorders: No Female Reproductive Disorders: Denies Sexually Transmitted Disease: No HIV/AIDS: No Genitourinary: No Gastrointestinal: No Musculoskeletal: No Endocrine: Yes Hypothyroidsim HEENT: Yes Cataract Hearing Impairment: Hard of Hearing, Hearing Aide Right, Hearing Aide Left Cancer: No Psychosocial: No (HX OF DEPRESSION YEARS AGO) Integumentary: No Blood Disorders: No Adverse Reaction/Blood Tranf: No (JENISE BARRETT) Family Medical History Reviewed Nursing Family Hx (MOLLY ESCALANTE MD) Patient reports no known family medical history. No Pertinent Family Hx (JENISE BARRETT) Physical Exam-Suspected Sepsis Physical Exam Vital Signs Vital Signs - First Documented 09/08/20 10:35 Temp 38.1 Pulse 61 Resp 18 B/P (MAP) 182/72 (108) Pulse Ox 96 O2 Delivery Nasal Cannula O2 Flow Rate 2.00 (MOLLY ESCALANTE MD) Vital Signs Capillary Refill : Less Than 3 Seconds (JENISE BARRETT) Blood Pressure Mean: 108 Height, Weight, BMI Height: 5'9.00" Weight: 171lbs. 9.0oz. 77.734392je; 26.00 BMI Method:Stated General Appearance: No Apparent Distress, WD/WN (JENISE BARRETT) General Appearance: No Apparent Distress, WD/WN HEENT: PERRL/EOMI, Pharyngeal Erythema, Other (Mucous membranes dry) Neck: Non Tender, Supple Respiratory: Lungs Clear, Normal Breath Sounds Cardiovascular: Regular Rate, Rhythm, No Murmur Gastrointestinal: Non Tender, Soft Back: Normal Inspection, No CVA Tenderness, No Vertebral Tenderness Extremity: Normal Range of Motion, Pelvis Stable, Other (Tender to right hip but retains full range of motion and pelvis is stable) Neurologic/Psychiatric: Alert, Oriented x3 Skin: warm/dry, ecchymosis (Right buttock) (MOLLY ESCALANTE MD) Focused Exam Lactate Level 09/08/20 10:39: Lactic Acid Level 0.70 (MOLLY ESCALANTE MD) Lactic Acid Level Laboratory Tests Test 09/08/20 10:39 Lactic Acid Level 0.70 MMOL/L (0.50-2.00) (MOLLY ESCALANTE MD) Progress/Results/Core Measures Suspected Sepsis Recent Fever Within 48 Hours: Yes Infection Criteria Present: Suspected New Infection New/Unexplained Altered Menta: No Sepsis Screen: No Definite Risk SIRS Temperature: Pulse: 61 Respiratory Rate: 18 Laboratory Tests 09/08/20 10:39: White Blood Count 9.7 Blood Pressure 182 /72 Mean: 108 09/08/20 10:39: Lactic Acid Level 0.70 Laboratory Tests 09/08/20 10:39: INR Comment 2.0H, Platelet Count 266, Total Bilirubin 0.8 (JENISE BARRETT) Results/Orders Lab Results Laboratory Tests Test 09/08/20 10:39 09/08/20 10:53 09/08/20 11:00 Range/Units White Blood Count 9.7 4.3-11.0 10^3/uL Red Blood Count 3.37 L 3.80-5.11 10^6/uL Hemoglobin 10.4 L 11.5-16.0 g/dL Hematocrit 33 L 35-52 % Mean Corpuscular Volume 98 80-99 fL Mean Corpuscular Hemoglobin 31 25-34 pg Mean Corpuscular Hemoglobin Concent 31 L 32-36 g/dL Red Cell Distribution Width 13.9 10.0-14.5 % Platelet Count 266 130-400 10^3/uL Mean Platelet Volume 10.3 9.0-12.2 fL Immature Granulocyte % (Auto) 0 % Neutrophils (%) (Auto) 72 42-75 % Lymphocytes (%) (Auto) 11 L 12-44 % Monocytes (%) (Auto) 16 H 0-12 % Eosinophils (%) (Auto) 1 0-10 % Basophils (%) (Auto) 0 0-10 % Neutrophils # (Auto) 7.0 1.8-7.8 10^3/uL Lymphocytes # (Auto) 1.0 1.0-4.0 10^3/uL Monocytes # (Auto) 1.5 H 0.0-1.0 10^3/uL Eosinophils # (Auto) 0.1 0.0-0.3 10^3/uL Basophils # (Auto) 0.0 0.0-0.1 10^3/uL Immature Granulocyte # (Auto) 0.0 0.0-0.1 10^3/uL Prothrombin Time 22.8 H 12.2-14.7 SEC INR Comment 2.0 H 0.8-1.4 Activated Partial Thromboplast Time 38 H 24-35 SEC D-Dimer 0.79 H 0.00-0.49 UG/ML Sodium Level 139 135-145 MMOL/L Potassium Level 4.0 3.6-5.0 MMOL/L Chloride Level 105 98-107 MMOL/L Carbon Dioxide Level 25 21-32 MMOL/L Anion Gap 9 5-14 MMOL/L Blood Urea Nitrogen 30 H 7-18 MG/DL Creatinine 2.52 #H 0.60-1.30 MG/DL Estimat Glomerular Filtration Rate 18 BUN/Creatinine Ratio 12 Glucose Level 114 H 70-105 MG/DL Lactic Acid Level 0.70 0.50-2.00 MMOL/L Calcium Level 8.2 L 8.5-10.1 MG/DL Corrected Calcium 8.6 8.5-10.1 MG/DL Total Bilirubin 0.8 0.1-1.0 MG/DL Aspartate Amino Transf (AST/SGOT) 22 5-34 U/L Alanine Aminotransferase (ALT/SGPT) 13 0-55 U/L Alkaline Phosphatase 95 40-136 U/L C-Reactive Protein High Sensitivity 8.33 H 0.00-0.50 MG/DL Total Protein 6.8 6.4-8.2 GM/DL Albumin 3.5 3.2-4.5 GM/DL Procalcitonin 0.06 <0.10 NG/ML Urine Color YELLOW Urine Clarity SL CLOUDY Urine pH 5.5 5-9 [address]rine Specific [place] 1.025 H 1.016-1.022 Urine Protein 1+ H NEGATIVE Urine Glucose (UA) NEGATIVE NEGATIVE Urine Ketones NEGATIVE NEGATIVE Urine Nitrite NEGATIVE NEGATIVE Urine Bilirubin NEGATIVE NEGATIVE Urine Urobilinogen 0.2 < = 1.0 MG/DL Urine Leukocyte Esterase NEGATIVE NEGATIVE Urine RBC (Auto) 3+ H NEGATIVE Urine RBC 50-100 H /HPF Urine WBC NONE /HPF Urine Squamous Epithelial Cells NONE /HPF Urine Crystals NONE /LPF Urine Bacteria NEGATIVE /HPF Urine Casts NONE /LPF Urine Mucus NEGATIVE /LPF Urine Culture Indicated CULTURE PENDING Coronavirus 2019 (SHIVANI) Negative Negative (MOLLY ESCALANTE MD) Micro Results Microbiology 09/08/20 Influenza Types A,B Antigen (HADLEY) - Final, Complete (MOLLY ESCALANTE MD) My Orders Orders - MOLLY ESCALANTE MD Ct Head Wo (09/08/20 10:59) Cbc With Automated Diff (09/08/20 10:59) Comprehensive Metabolic Panel (09/08/20 10:59) Blood Culture (09/08/20 10:59) Sputum Culture (09/08/20 10:59) Urinalysis (09/08/20 10:59) Urine Culture (09/08/20 10:59) Protime With Inr (09/08/20 10:59) Partial Thromboplastin Time (09/08/20 10:59) Chest 1 View, Ap/Pa Only (09/08/20 10:59) Ed Iv/Invasive Line Start (09/08/20 10:59) Vital Signs Adult Sepsis Patie Q15M (09/08/20 10:59) O2 (09/08/20 10:59) Remove Rings In Anticipation O (09/08/20 10:59) Lactic Acid Analyzer (09/08/20 10:59) Influenza A And B Antigens (09/08/20 11:01) Fibrin Degradation Products (09/08/20 11:01) Procalcitonin (Pct) (09/08/20 11:01) Hs C Reactive Protein (09/08/20 11:01) Covid 19 Inhouse Test (09/08/20 11:01) Ceftriaxone For Iv Use (Rocephin For I (09/08/20 13:39) (MOLLY ESCALANTE MD) Vital Signs/I&O 09/08/20 10:35 Temp 38.1 Pulse 61 Resp 18 B/P (MAP) 182/72 (108) Pulse Ox 96 O2 Delivery Nasal Cannula O2 Flow Rate 2.00 (MOLLY ESCALANTE MD) Vital Signs/I&O Capillary Refill : Less Than 3 Seconds (JENISE BARRETT) Blood Pressure Mean: 108 Progress Note : Time: 11:10 Progress Note Pt seen Tuesday found to have right sided hydronephrosis secondary to abdominal mass, had a fall from ground level today hitting her head and right hip secondary to a dizzy episode, found to have a fever with elevated BP, concern for sepsis secondary to hydronephrosis, COVID-19/Fle swab ordered, begin sepsis workup, CBC, CMP, UA, Lactic acid, non-contrast CT head ordered, CXR ordered, IV line ordered, L bolus given, CBC shows WBC at 9.7, HGB 10.4 today decreased from 12.4 on 09/06, (JENISE BARRETT) Progress Note : Progress Note I have seen and evaluated the patient and agree with above except as indicated. I have directed the plan of care. Patient is here with report of fall at home again today. States that she just got dizzy and fell. She did hit her head. This is similar to September 06 when she was last seen. At that time she was noted to have rather significant right hydronephrosis and concerns for possible mass. She is supposed to get MRI today to further evaluate that. She did not know that she had a fever but did have chills last night. Denies contact with COVID-19 or other symptoms. Denies dysuria or significant cough. We will initi ate sepsis protocol and also get COVID-19 screening as well as influenza screening. UA via straight cath. We will have to get repeat CT head due to fall with head injury. Monitor patient. 1344: All findings noted. Patient does have increasing serum creatinine which may be related to dehydration versus obstructive uropathy. There is concerns for infection post renal but preobs truction. I did discuss the case with Dr. Ghulam mo. He needs to look at her for possible stent placement if able. We will hold Coumadin tonight and he will determine options after evaluation. He will see patient in consult. I did discuss the case with Dr. Mason and he accepts patient for admission, inpatient status. We will initiate Rocephin 1 g IV now and continue that. Urine culture is pending. Patient also has findings on CT scan which may be related to normal pressure hydrocephalus that can be further evaluated as needed. Discussed with patient who agrees with plan. 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 Left ventricular hypertrophy noted. Left axis deviation. No evidence of ST elevation MD. Interpreted by me. (MOLLY ESCALANTE MD) Diagnostic Imaging Diagonstic Imaging: Xray Plain Films/CT/US/NM/MRI: chest Comments [facility] [place] [place] NAME: JAZMÍN GRIDER [facility] REC#: [id number] PT STATUS: REG ER : 1940 PHYSICIAN: MOLLY ESCALANTE MD ADMIT DATE: 09/08/20/ER Draft Date of Exam:09/08/20 CHEST 1 VIEW, AP/PA ONLY INDICATION: Sepsis. COMPARISON: 09/08/2018. FINDINGS: The heart is enlarged but unchanged from prior. There is prominence of the perihilar interstitial lung markings as a new finding. This could be inflammatory or edematous. The pulmonary venous structures are not grossly over dilated. IMPRESSION: Chronic enlargement of the cardiac silhouette. Increased perihilar interstitial disease may be inflammatory or edema. No pleural fluid or pneumothorax. Dictated on workstation # [id number] Dict: 09/08/20 1128 Trans: 09/08/20 1131 [id number] Interpreted by: YAYA ESTRADA Electronically signed by: Diagonstic Imaging: CT Plain Films/CT/US/NM/MRI: head Comments [facility] [place] NAME: JAZMÍN GRIDER [facility] REC#: [id number] PT STATUS: REG ER : 1940 PHYSICIAN: MOLLY ESCALANTE MD ADMIT DATE: 09/08/20/ER Draft Date of Exam:09/08/20 CT HEAD WO PROCEDURE: CT head without contrast. TECHNIQUE: Multiple contiguous axial images were obtained through the brain without the use of intravenous contrast. Auto Exposure Controls were utilized during the CT exam to meet ALARA standards for radiation dose reduction. INDICATION: Fall. Head injury. COMPARISON: CT head without contrast from 09/06/2020. FINDINGS: Osseous structures are intact. No fractures. Visualized paranasal sinuses and mastoids are clear. Mild generalized cerebral and cerebellar parenchymal volume loss. Mild leukoaraiosis. No CT evidence of a territorial infarction. No intracranial hemorrhage, mass effect, or extra-axial fluid collections. Stable prominence of the ventricular system. IMPRESSION: 1. No acute intracranial CT findings. 2. Stable prominence of the ventricles which appears to be out of proportion to the degree of parenchymal volume loss. This finding could be seen in the setting of normal pressure hydrocephalus. Dictated on workstation # [id number] Dict: 09/08/20 1301 Trans: 09/08/20 1309 [id number] Interpreted by: NENA DASILVA MD Electronically signed by: (MOLLY ESCALANTE MD) Departure Communication (Admissions) Time/Spoke to Admitting Phy: 13:44 Time/Spoke to Consulting Phy: 13:38 (MOLLY ESCALANTE MD) Impression Primary Impression: Uropathy, obstructive Additional Impressions: UTI (urinary tract infection) Qualified Codes: N30.00 - Acute cystitis without hematuria Frequent falls Disposition: ADMITTED INPATIENT Condition: Stable Admissions Decision to Admit Reason: Admit from ER (General) Decision to Admit/Date: Sep 08, 2020 Time/Decision to Admit Time: 13:38 (MOLLY ESCALANTE MD) Departure-Patient Inst. Referrals: JOAQUÍN PERERA MD (PCP/Family) Primary Care Physician JENISE BARRETT Sep 08, 2020 11:15 MOLLY ESCALANTE MD Sep 08, 2020 12:09
[2020-09-08 11:16] LABS: BASOPHILS % (AUTO) 0 % (0-10); EOSINOPHILS # (AUTO) 0.1 10^3/uL (0.0-0.3); EOSINOPHILS % (AUTO) 1 % (0-10); HEMATOCRIT 33 % (35-52); HEMOGLOBIN 10.4 g/dL (11.5-16.0); LYMPHOCYTES % (AUTO) 11 % (12-44); MEAN CORPUSCULAR HEMOGLOBIN 31 pg (25-34); MEAN CORPUSCULAR HGB CONC 31 g/dL (32-36); MEAN CORPUSCULAR VOLUME 98 fL (80-99); MEAN PLATELET VOLUME 10.3 fL (9.0-12.2); MONOCYTES # (AUTO) 1.5 10^3/uL (0.0-1.0); MONOCYTES % (AUTO) 16 % (0-12); NEUTROPHILS % (AUTO) 72 % (42-75); PLATELET COUNT 266 10^3/uL (130-400); WHITE BLOOD COUNT 9.7 10^3/uL (4.3-11.0)
[2020-09-08 11:18] LABS: BILIRUBIN,URINE NEGATIVE (NEGATIVE); CLARITY,URINE SL CLOUDY; COLOR,URINE YELLOW; GLUCOSE, URINE (UA) NEGATIVE (NEGATIVE); KETONES,URINE NEGATIVE (NEGATIVE); LEUKOCYTE ESTERASE ,URINE NEGATIVE (NEGATIVE); NITRITE,URINE NEGATIVE (NEGATIVE); PH,URINE 5.5 (5-9); PROTEIN,URINE 1+ (NEGATIVE)
[2020-09-08 11:19] LABS: ALBUMIN 3.5 GM/DL (3.2-4.5)
[2020-09-08 11:20] LABS: CALCIUM 8.2 MG/DL (8.5-10.1)
[2020-09-08 11:22] LABS: TOTAL PROTEIN 6.8 GM/DL (6.4-8.2)
[2020-09-08 11:23] LABS: BILIRUBIN,TOTAL 0.8 MG/DL (0.1-1.0); FIBRIN DEGRADATION PRODUCTS 0.79 UG/ML (0.00-0.49); PROTHROMBIN TIME PATIENT 22.8 SEC (12.2-14.7)
[2020-09-08 11:25] LABS: CREATININE SERUM 2.52 MG/DL (0.60-1.30)
--- NOTE | 2020-09-08 11:31 | Diagnostic Imaging Report ---
INDICATION: Sepsis. COMPARISON: 09/08/2018. FINDINGS: The heart is enlarged but unchanged from prior. There is prominence of the perihilar interstitial lung markings as a new finding. This could be inflammatory or edematous. The pulmonary venous structures are not grossly over dilated. IMPRESSION: Chronic enlargement of the cardiac silhouette. Increased perihilar interstitial disease may be inflammatory or edema. No pleural fluid or pneumothorax. Dictated by: Dictated on workstation # [id number]
[2020-09-08 11:32] LABS: BACTERIA,URINE NEGATIVE /HPF; RBC,URINE 50-100 /HPF
--- NOTE | 2020-09-08 13:10 | Diagnostic Imaging Report ---
PROCEDURE: CT head without contrast. TECHNIQUE: Multiple contiguous axial images were obtained through the brain without the use of intravenous contrast. Auto Exposure Controls were utilized during the CT exam to meet ALARA standards for radiation dose reduction. INDICATION: Fall. Head injury. COMPARISON: CT head without contrast from 09/06/2020. FINDINGS: Osseous structures are intact. No fractures. Visualized paranasal sinuses and mastoids are clear. Mild generalized cerebral and cerebellar parenchymal volume loss. Mild leukoaraiosis. No CT evidence of a territorial infarction. No intracranial hemorrhage, mass effect, or extra-axial fluid collections. Stable prominence of the ventricular system. IMPRESSION: 1. No acute intracranial CT findings. 2. Stable prominence of the ventricles which appears to be out of proportion to the degree of parenchymal volume loss. This finding could be seen in the setting of normal pressure hydrocephalus. Dictated by: Dictated on workstation # [id number]
[2020-09-08] MEDS ORDERED: cefTRIAXone FOR IV USE 1,000 MG in WATER (STERILE) FOR INJECTION 10 ML IV STA (13:39)
[2020-09-08 14:51] VITALS: BP 143/61
[2020-09-08] MEDS ORDERED: ONDANSETRON 4 MG/2 ML (SDV) Z0FRAN IVP PRN (15:00)
[2020-09-08] MEDS: NS IV 1000 ML 1,000 ML IV SCH (15:33)
[2020-09-08 16:11] VITALS: BP 131/62
[2020-09-08 19:10] VITALS: BP 152/67
[2020-09-08] MEDS ORDERED: BISACODYL 10 MG SUPP (DULCOLAX) PR PRN (19:45)
[2020-09-08] MEDS ORDERED: ONDANSETRON 4 MG/2 ML (SDV) Z0FRAN IV PRN (19:45)
[2020-09-08] MEDS ORDERED: polyethylene glycoL POWDER 17 GM (MIRALAX) PACK PO PRN (19:45)
[2020-09-08] MEDS ORDERED: ANTACID SUSP 30 ML UDC (MYLANTA) PO PRN (19:45)
[2020-09-08] MEDS ORDERED: ACETAMINOPHEN 325 MG TABLET PO PRN (19:45)
[2020-09-08] MEDS ORDERED: warFARin 2 MG (COUMADIN) TAB PO ONE (19:45)
[2020-09-08] MEDS ORDERED: ONDANSETRON 4 MG (ZOFRAN) ORAL DISSOLVE TAB PO PRN (19:45)
[2020-09-08] MEDS: DOCUSATE SODIUM 100 MG (COLACE) CAP PO SCH (21:07)
[2020-09-08] MEDS: SENNOSIDES 8.6 MG (SENOKOT) TAB PO SCH (21:07)
[2020-09-09] VITALS (25 sets, daily range): BP systolic 124–248; BP diastolic 49–119
[2020-09-09] MEDS ORDERED: cloNIDine 0.1 MG (CATAPRES) TAB PO PRN (01:00)
[2020-09-09] MEDS: fentaNYL INJECTION 100 MCG/2 ML AMP IVP PRN ×2 (01:06→20:10)
[2020-09-09 02:39] LABS: ABG BASE EXCESS 1.8 MMOL/L (-2.5-2.5); ABG OXYGEN SATURATION 88 % (94-100); ABG PCO2 54 MMHG (35-45); ABG PO2 60 MMHG (79-93); ABG TCO2 29.2 MMOL/L (21.0-31.0)
[2020-09-09 02:40] LABS: ALLENS TEST POSITIVE; INSPIRED O2 10; PATIENT TEMP 36; VENTILATOR NO
[2020-09-09 02:44] LABS: ABG PH 7.32 (7.37-7.43)
[2020-09-09] MEDS ORDERED: niCARdipine IV FOR DRIP 50 MG KIT ONE (02:53)
[2020-09-09] MEDS ORDERED: NS (IVPB) 250 ML ONE (02:54)
[2020-09-09] MEDS: niCARdipine IV 50 MG in NS (IVPB) 230 ML IV SCH ×3 (03:15→20:40)
[2020-09-09 03:27] LABS: BASOPHILS # (AUTO) 0.1 10^3/uL (0.0-0.1); BASOPHILS % (AUTO) 1 % (0-10); EOSINOPHILS # (AUTO) 0.2 10^3/uL (0.0-0.3); EOSINOPHILS % (AUTO) 2 % (0-10); HEMATOCRIT 39 % (35-52); HEMOGLOBIN 12.2 g/dL (11.5-16.0); LYMPHOCYTES # (AUTO) 1.4 10^3/uL (1.0-4.0); LYMPHOCYTES % (AUTO) 10 % (12-44); MEAN CORPUSCULAR HEMOGLOBIN 31 pg (25-34); MEAN CORPUSCULAR HGB CONC 32 g/dL (32-36); MEAN CORPUSCULAR VOLUME 97 fL (80-99); MEAN PLATELET VOLUME 10.2 fL (9.0-12.2); MONOCYTES # (AUTO) 1.5 10^3/uL (0.0-1.0); MONOCYTES % (AUTO) 11 % (0-12); NEUTROPHILS % (AUTO) 77 % (42-75); PLATELET COUNT 356 10^3/uL (130-400); WHITE BLOOD COUNT 14.3 10^3/uL (4.3-11.0)
[2020-09-09] MEDS: NS IV 1000 ML 1,000 ML IV SCH ×3 (03:40→20:10)
[2020-09-09 03:44] LABS: INR 1.7 (0.8-1.4); PROTHROMBIN TIME PATIENT 20.4 SEC (12.2-14.7)
[2020-09-09 03:45] LABS: CHLORIDE 104 MMOL/L (98-107); POTASSIUM 3.8 MMOL/L (3.6-5.0); SODIUM 140 MMOL/L (135-145)
[2020-09-09 03:46] LABS: CALCIUM 9.2 MG/DL (8.5-10.1)
[2020-09-09 03:48] LABS: GLUCOSE 123 MG/DL (70-105); TOTAL PROTEIN 7.7 GM/DL (6.4-8.2)
[2020-09-09 03:49] LABS: BILIRUBIN,TOTAL 0.7 MG/DL (0.1-1.0); CARBON DIOXIDE 23 MMOL/L (21-32)
[2020-09-09 03:51] LABS: ALKALINE PHOSPHATASE 110 U/L (40-136); CREATININE SERUM 2.21 MG/DL (0.60-1.30); GFR ESTIMATED 21; PHOSPHORUS 3.2 MG/DL (2.3-4.7)
[2020-09-09 03:52] LABS: BUN/CREATININE RATIO 13
[2020-09-09 03:54] LABS: ALANINE AMINOTRANSFERASE 12 U/L (0-55); MAGNESIUM 2.1 MG/DL (1.6-2.4)
[2020-09-09 04:28] LABS: ATYPICAL LYMPHOCYTES 2 %; BAND NEUTROPHILS 11 %; EOSINOPHILS % (MANUAL) 5 %; LYMPHOCYTES % (MANUAL) 10 %; MONOCYTES % (MANUAL) 9 %; NEUTROPHILS % (MANUAL) 63 %
[2020-09-09 04:29] LABS: RBC MORPH NORMAL
--- NOTE | 2020-09-09 04:39 | Pulmonary Consultation ---
History of Present Illness History of Present Illness Date Seen by Provider: Sep 09, 2020 Time Seen by Provider: 04:34 Date of Admission History of Present Illness 79yo presented to ED secondary to fever and s/p fall at home just prior to arrival. PT did hit her head on right side however denies LOC. Pt had dizziness prior to fall. Pt was just seen in ED 1 day prior secondary to abdominal pain and was found jto have right hydronephrosis secondary to a mass. She was supposed to contact Dr. Zayas today and have an MRI Scheduled today to asses the mass further as she denied wanting to be admitted at yesterdays visit to the ER. Pt was also found to be hypoxic with Spo02 in the 80's and required 1-2 liter NC upon admission. Pt does not use oxygen at home. She was using Cipro at home. Allergies and Home Medications Allergies Coded Allergies: Penicillins (Verified Allergy, Unknown, 11/07/18) pineapple (Verified Allergy, Unknown, 11/09/18) Home Medications Amiodarone HCl 200 Mg Tablet, 200 MG PO DAILY, (Reported) Atorvastatin Calcium 20 Mg Tablet, 20 MG PO DAILY, (Reported) Carvedilol 12.5 Mg Tablet, 12.5 MG PO BID, (Reported) Diltiazem HCl 240 Mg Cap.er.deg, 240 MG PO DAILY, (Reported) Furosemide 20 Mg Tablet, 20 MG PO DAILY, (Reported) Gabapentin 100 Mg Capsule, 200 MG PO DAILY, (Reported) TAKES 2 (100MG) CAPSULES Levothyroxine Sodium 75 Mcg Tablet, 75 MCG PO DAILY, (Reported) Potassium Chloride 10 Meq Tablet.er, 20 MEQ PO DAILY, (Reported) TAKES 2 (10MEQ) TABS Warfarin Sodium 4 Mg Tablet, 4 MG PO HERNANDEZ,MO,,,, (Reported) Warfarin Sodium 4 Mg Tablet, 6 MG PO TUE,TUE, (Reported) TAKES 1 & 1/2 (4MG) TABLET Past Blnsuxa-Wpugks-Lajwbp Hx Past Med/Social Hx: Reviewed Nursing Past Med/Soc Hx Patient Social History Alcohol Use: Denies Use Smoking Status: Never a Smoker Recent Infectious Disease Expo: No Recent Hopitalizations: No Have you traveled recently?: No Alcohol Use?: No Immunizations Up To Date Tetanus Booster (TDap): Unknown PED Vaccines UTD: No Date of Pneumonia Vaccine: Apr 12, 2018 Date of Influenza Vaccine: Apr 08, 2020 Seasonal Allergies Seasonal Allergies: Yes Past Medical History Surgeries: Yes (RIGHT INGUINAL HERNIA REPAIR, 1979 RIGHT KNEE SURGERY, ANKLE 1999) Coronary Stent, Pacemaker Respiratory: No Tuberculosis Cardiac: Yes (PACEMAKER, VALVE REPLACED) Atrial Fibrillation, High Cholesterol, Hypertension Neurological: No Reproductive Disorders: No Female Reproductive Disorders: Denies Sexually Transmitted Disease: No HIV/AIDS: No Genitourinary: No Gastrointestinal: No Musculoskeletal: No Endocrine: Yes Hypothyroidsim HEENT: Yes Cataract Hearing Impairment: Hard of Hearing, Hearing Aide Right, Hearing Aide Left Cancer: No Psychosocial: No (HX OF DEPRESSION YEARS AGO) Integumentary: No Blood Disorders: No Adverse Reaction/Blood Tranf: No Family Medical History Reviewed Nursing Family Hx Patient reports no known family medical history. No Pertinent Family Hx Review of Systems Time Seen by Provider: 04:40 Sepsis Event Evaluation Height, Weight, BMI Height: 5'9.00" Weight: 171lbs. 9.0oz. 77.727147pa; 26.12 BMI Method:Stated Exam Exam Vital Signs Date Time Temp Pulse Resp B/P (MAP) Pulse Ox O2 Delivery O2 Flow Rate FiO2 09/09/20 03:36 74 23 91 50.00 09/09/20 03:13 NIV Bilevel 40.00 09/09/20 02:42 36.0 Nasal Cannula 15.00 09/09/20 02:41 75 09/09/20 02:30 74 22 248/109 (155) 89 Nasal Cannula 15.00 09/09/20 02:30 85 Nasal Cannula 10.00 09/09/20 02:00 67 244/119 (160) 90 Nasal Cannula 8.00 09/09/20 02:00 240/79 (132) 90 Nasal Cannula 8.00 09/09/20 00:00 36.9 61 18 210/80 (123) 91 Nasal Cannula 2.00 09/08/20 23:50 95 Nasal Cannula 2.00 09/08/20 20:10 95 Nasal Cannula 2.00 09/08/20 19:10 36.3 64 18 152/67 (95) 95 Nasal Cannula 2.00 09/08/20 16:11 35.8 64 18 131/62 (85) 96 Nasal Cannula 2.00 09/08/20 14:51 37.1 67 20 143/61 (88) 95 Nasal Cannula 2.00 09/08/20 14:50 Nasal Cannula 2.00 09/08/20 14:21 61 18 171/71 99 09/08/20 10:35 38.1 61 18 182/72 (108) 96 Nasal Cannula 2.00 09/08/20 10:35 94 Nasal Cannula 2.00 I & O 09/09/20 07:00 Intake Total 300 ml Output Total 500 ml Balance -200 ml Height & Weight Height: 5'9.00" Weight: 171lbs. 9.0oz. 77.055073tg; 26.12 BMI Method:Stated General Appearance: No Apparent Distress, WD/WN HEENT: PERRL/EOMI, Pharyngeal Erythema, Other (Mucous membranes dry) Neck: Non Tender, Supple Respiratory: Lungs Clear, Normal Breath Sounds Cardiovascular: Regular Rate, Rhythm, No Murmur Capillary Refill: Less Than 3 Seconds Extremity: Normal Range of Motion, Pelvis Stable, Other (Tender to right hip b ut retains full range of motion and pelvis is stable) Neurologic/Psychiatric: Alert, Oriented x3 Results Lab Laboratory Tests 09/08/20 10:39 09/09/20 02:47 Assessment/Plan Assessment/Plan Acute respiratory failure with hypoxia Vapotherm - wean as tolerated -Rapid COVID is negative -Influenza is negative HTNE - Cardene gtt currently -Add PO meds S/p Fall -Head CT is negative Acute kidney injury on chronic kidney failure -IVF -Control HTN -Monitor Obstruction of right ureter/Hydroureteronephrosis -Urology is consulted CT abdomen with right hydroureteronephrosis due to extrinsic compression, un clear if due to ovary, bowel, or mass Urology consulted, Dr. Zayas, planning for cystoscopy tomorrow Consider MRI following cystoscopy if needed IV fluids AFib Coumadin held for procedure Hypothyroidism levothyroxine ZHANG HERCULES DO Sep 09, 2020 04:39
--- NOTE | 2020-09-09 06:29 | Diagnostic Imaging Report ---
INDICATION: Shortness of breath. COMPARISON: 09/08/2020. FINDINGS: Single view of the chest demonstrates cardiac enlargement with worsening interstitial infiltrates probably CHF. Underlying pneumonia not excluded. There is no pneumothorax or effusion. The pacemaker is stable. IMPRESSION: Cardiac enlargement with worsening bilateral pulmonary infiltrates. Dictated by: Dictated on workstation # [id number]
[2020-09-09] MEDS ORDERED: hydrALAZINE (APRESOLINE) 25 MG TAB PO NR (07:45)
[2020-09-09] MEDS: SENNOSIDES 8.6 MG (SENOKOT) TAB PO SCH ×2 (08:08→21:37)
[2020-09-09] MEDS: meTOprolol TARTRATE 50 MG (LOPRESSOR) TAB PO SCH ×2 (08:08→21:37)
[2020-09-09] MEDS: DOCUSATE SODIUM 100 MG (COLACE) CAP PO SCH ×2 (08:08→21:37)
[2020-09-09] MEDS ORDERED: amLODIPine 5 MG (NORVASC) TAB PO SCH (09:00)
--- NOTE | 2020-09-09 11:45 | History & Physical-Hospitalist ---
History of Present Illness HPI/Chief Complaint Corina Baker is an 79-year-old female with past medical history of hypertension, atrial fibrillation on warfarin, hypothyroidism, who presented after having a fall at home. She reports that she has been having frequent falls recently. She uses a cane and a walker when she is at home. She denies any lightheadedness or dizziness. She has not been passing out. She denies any fevers or chills. She denies any shortness of breath or cough. She denies any chest pain. She denies any abdominal pain, nausea, or vomiting. She denies any diarrhea. She denies any dysuria. She has been urinating frequently. She denies any incontinence. Source: patient Exam Limitations: no limitations Date Seen 09/09/20 Time Seen by a Provider: 08:55 Attending Physician Noe Marquez MD PCP Osman Prather MD Referring Physician Date of Admission Sep 08, 2020 at 13:50 Home Medications & Allergies Home Medications Reviewed patient Home Medication Reconciliation performed by pharmacy medication reconciliations site damage prevention technician and/or nursing. Patients Allergies have been reviewed. Allergies Allergies Coded Allergies Penicillins (Verified Allergy, Unknown, 11/07/18) pineapple (Verified Allergy, Unknown, 11/09/18) Past Gdadsid-Nbkvwc-Wesflr Hx Past Med/Social Hx: Reviewed Nursing Past Med/Soc Hx Patient Social History Alcohol Use: Denies Use Recreational Drug Use: No Smoking Status: Never a Smoker Recent Foreign Travel: No Contact w/other who traveled: No Recent Hopitalizations: No Recent Infectious Disease Expo: No Immunizations Up To Date Tetanus Booster (TDap): Unknown Pediatric: No Date of Pneumonia Vaccine: Apr 12, 2018 Date of Influenza Vaccine: Apr 08, 2020 Seasonal Allergies Seasonal Allergies: Yes Past Medical History Surgeries: Coronary Stent, Pacemaker Cardiac: Atrial Fibrillation, High Cholesterol, Hypertension Reproductive: No Sexually Transmitted Disease: No HIV/AIDS: No Female Reproductive Disorders: Denies Endocrine: Hypothyroidsim HEENT: Cataract Hearing Impairment: Hard of Hearing, Hearing Aide Right, Hearing Aide Left History of Blood Disorders: No Adverse Reaction to Blood Rogers: No Family History Reviewed Nursing Family Hx Patient reports no known family medical history. No Pertinent Family Hx Review of Systems Constitutional: weakness EENTM: no symptoms reported Respiratory: no symptoms reported Cardiovascular: no symptoms reported Gastrointestinal: no symptoms reported Genitourinary: no symptoms reported Musculoskeletal: no symptoms reported Skin: no symptoms reported Psychiatric/Neurological: No Symptoms Reported Physical Exam Physical Exam Vital Signs Vital Signs - First Documented 09/08/20 09/09/20 10:35 05:32 Temp 38.1 Pulse 61 Resp 18 B/P (MAP) 182/72 (108) Pulse Ox 94 O2 Delivery Nasal Cannula O2 Flow Rate 2.00 FiO2 70 Capillary Refill : Less Than 3 Seconds Height, Weight, BMI Height: 5'9.00" Weight: 171lbs. 9.0oz. 77.322166ud; 26.12 BMI Method:Stated General Appearance: No Apparent Distress, WD/WN HEENT: PERRL/EOMI, Pharynx Normal Neck: Normal Inspection, Supple Respiratory: Lungs Clear, Normal Breath Sounds, No Respiratory Distress Cardiovascular: Regular Rate, Rhythm, No Edema, Systolic Murmur Gastrointestinal: Normal Bowel Sounds, Non Tender, Soft Extremity: Normal Inspection, Non Tender, No Pedal Edema Neurologic/Psychiatric: Alert, Oriented x3, No Motor/Sensory Deficits, Normal Mood/Affect Skin: Normal Color, Warm/Dry Results Results/Procedures Labs Laboratory Tests 09/08/20 10:39 09/09/20 02:47 Patient resulted labs reviewed. Imaging: Reviewed Imaging Report Assessment/Plan Admission Diagnosis Acute kidney injury superimposed on chronic kidney disease Admission Status: Inpatient Order (span 2 midnights) Reason for Inpatient Admission: Hydronephrosis requring urology intervention Assessment and Plan Acute kidney injury superimposed on chronic kidney disease Obstruction of right ureter Hydroureteronephrosis CT abdomen with right hydroureteronephrosis due to extrinsic compression, unclear if due to ovary, bowel, or mass Urology consulted, Dr. Zayas, planning for cystoscopy tomorrow Consider MRI following cystoscopy if needed IV fluids HTN emergency Acute HFpEF Acute respiratory failure with hypoxia IV Cardene overnight, weaning off this morning Amlodipine Hydralazine Metoprolol Vapotherm AFib Coumadin held for procedure INR 1.7 this morning Hypothyroidism Continue levothyroxine DVT prophylaxis: held for procedure Diagnosis/Problems Diagnosis/Problems (1) Acute kidney injury superimposed on chronic kidney disease Status: Acute (2) Obstruction of right ureter Status: Acute (3) Hypertensive emergency Status: Acute (4) Acute heart failure with preserved ejection fraction (HFpEF) Status: Acute (5) Acute respiratory failure with hypoxia Status: Acute (6) On Coumadin for atrial fibrillation Status: Chronic (7) Paroxysmal A-fib Status: Chronic (8) Hypothyroidism Status: Chronic (9) HTN (hypertension) Status: Chronic (10) Hydroureteronephrosis NOE MARQUEZ MD Sep 09, 2020 11:45
--- NOTE | 2020-09-09 12:57 | CONSULTATION REPORT ---
DATE OF SERVICE: 09/09/2020 ATTENDING PHYSICIAN: Dr. Mason. SUMMARY: After reviewing the patient's records, interviewing her and examining her, this is an 79-year-old lady with a history of hypertension, atrial fibrillation, hypothyroidism. She fell at home and she presented to the emergency room. She had a temperature of 38.1, a creatinine above 2 and somewhat anemic. CAT scan showed right hydroureteronephrosis due to extrinsic compression, questionable cause. I reviewed all her history and her multiple medical problems. We held her Coumadin yesterday, started her on Rocephin. My recommendation with Dr. Gu. PHYSICAL EXAMINATION: GENERAL: Well-nourished, well-developed, in no acute distress. HEENT: The head is normocephalic. ENT: Unremarkable. NECK: Supple. CHEST: Clear. HEART: Rate and rhythm regular. ABDOMEN: Soft, nontender. EXTREMITIES: Lower extremity, no edema or cyanosis. NEUROLOGIC: Grossly intact. Oriented x3. SKIN normal color and dry. IMPRESSION: 1. Urinary tract infection. 2. Right ureteral obstruction. 3. Acute renal failure superimposed on chronic renal disease. 4. Medical illnesses per history. PLAN: Tomorrow we will take her to surgery and perform cystoscopy with retrograde urogram on the right side, possible ureteroscopy, possible stent. The plan was fully explained to the patient, all her questions answered. Depending on the procedure tomorrow, we will decide the next step and a possible MRI. Job ID: [id number] DocumentID: [id number] Dictated Date: 09/09/2020 12:43:14 Calcine Furnace Tender Date: 09/09/2020 12:55:56 Dictated By: LJ BRYSON MD
[2020-09-09] MEDS ORDERED: cefTRIAXone 1,000 MG IV (ROCEPHIN) VIAL ONE (13:12)
[2020-09-09] MEDS ORDERED: WATER (STERILE) FOR INJECTION 10 ML ONE (13:13)
[2020-09-09] MEDS: hydrALAZINE (APRESOLINE) 25 MG TAB PO SCH ×2 (13:19→21:37)
[2020-09-09] MEDS ORDERED: cefTRIAXone FOR IV USE 1,000 MG in WATER (STERILE) FOR INJECTION 10 ML IV SCH (14:00)
[2020-09-09 14:49] LABS: ABG BASE EXCESS 1.1 MMOL/L (-2.5-2.5); ABG OXYGEN SATURATION 78 % (94-100); ABG PCO2 50 MMHG (35-45); ABG PO2 51 MMHG (79-93); ABG TCO2 27.7 MMOL/L (21.0-31.0)
[2020-09-09 14:53] LABS: ABG PH 7.34 (7.37-7.43); ALLENS TEST POSITIVE; INSPIRED O2 100%; PATIENT TEMP 37; VENTILATOR NO
[2020-09-09] MEDS ORDERED: DILT240C47 PO (15:57)
[2020-09-09] MEDS ORDERED: CARV12.53 PO (15:57)
[2020-09-09] MEDS ORDERED: POTA10TA PO (15:57)
[2020-09-09] MEDS ORDERED: ATOR20TA66 PO (16:02)
[2020-09-09] MEDS ORDERED: warFARin 4 MG (COUMADIN) TAB PO SCH (18:00)
[2020-09-09] MEDS: hydrALAZINE (APESOLINE) 20 MG/ML VIAL IV PRN (21:37)
[2020-09-09] MEDS: MELATONIN 3 MG TABLET PO PRN (21:37)
[2020-09-10] VITALS (28 sets, daily range): BP systolic 85–174; BP diastolic 49–90
--- NOTE | 2020-09-10 05:10 | Pulmonary Progress Note ---
Subjective Time Seen by a Provider: 05:02 Sepsis Event Evaluation Height, Weight, BMI Height: 5'9.00" Weight: 171lbs. 9.0oz. 77.977800ow; 26.12 BMI Method:Stated Focused Exam Lactate Level 09/08/20 10:39: Lactic Acid Level 0.70 Exam Exam Vital Signs Date Time Temp Pulse Resp B/P (MAP) Pulse Ox O2 Delivery O2 Flow Rate FiO2 09/10/20 03:42 36.7 NIV Bilevel 80.00 09/10/20 03:00 60 15 123/50 (74) 94 NIV Bilevel 90.00 09/10/20 02:49 60 09/10/20 02:31 60 16 94 90.00 09/10/20 02:00 60 16 114/52 (72) 93 NIV Bilevel 90.00 09/10/20 01:00 60 15 139/55 (83) 93 NIV Bilevel 90.00 09/10/20 01:00 60 09/10/20 00:06 36.5 NIV Bilevel 90.00 09/10/20 00:04 60 17 91 90.00 09/10/20 00:00 62 22 150/62 (91) Vapotherm 40.00 100.00 09/09/20 23:05 40.00 100.00 09/09/20 23:00 64 31 162/65 (97) Vapotherm 20.00 75.00 09/09/20 22:00 66 23 160/63 (95) 97 Vapotherm 20.00 75.00 09/09/20 21:00 65 177/74 (108) 95 Vapotherm 20.00 75.00 09/09/20 20:45 36.0 40.00 100.00 09/09/20 20:44 85 Nasal Cannula 10.00 09/09/20 20:04 70 21 175/68 (103) 94 Vapotherm 20.00 75.00 09/09/20 19:00 67 09/09/20 19:00 67 23 168/93 (118) 88 Vapotherm 20.00 75.00 09/09/20 18:39 93 Vapotherm 100 09/09/20 18:15 161/67 (98) 09/09/20 18:00 66 21 89 Vapotherm 20.00 75.00 09/09/20 17:30 164/74 (104) 09/09/20 17:00 63 19 96 Vapotherm 20.00 75.00 09/09/20 16:00 66 16 142/56 (84) 96 Vapotherm 20.00 75.00 09/09/20 16:00 36.3 09/09/20 15:00 63 26 159/66 (97) 94 Vapotherm 20.00 75.00 09/09/20 14:00 64 22 162/85 (110) Vapotherm 20.00 75.00 09/09/20 13:00 64 09/09/20 13:00 64 27 170/68 (102) 91 Vapotherm 20.00 75.00 09/09/20 12:00 68 31 170/70 (103) 90 Vapotherm 20.00 75.00 09/09/20 11:12 37.2 09/09/20 11:00 61 15 154/64 (94) 89 Vapotherm 20.00 75.00 09/09/20 10:00 61 25 149/72 (97) 94 Vapotherm 20.00 75.00 09/09/20 09:00 64 21 157/68 (97) 91 Vapotherm 20.00 75.00 09/09/20 08:00 Vapotherm 20.00 75 09/09/20 08:00 77 14 166/65 (98) 92 Vapotherm 20.00 75.00 09/09/20 07:43 63 09/09/20 07:29 37.1 09/09/20 07:00 70 17 124/49 (74) 94 Vapotherm 20.00 75.00 09/09/20 06:00 67 19 160/66 (97) 90 Vapotherm 20.00 75.00 09/09/20 05:41 36.3 Vapotherm 75.00 09/09/20 05:32 90 Vapotherm 70 I & O 09/10/20 07:00 Intake Total 1400 ml Output Total 1300 ml Balance 100 ml Height & Weight Height: 5'9.00" Weight: 171lbs. 9.0oz. 77.448158rj; 26.12 BMI Method:Stated General Appearance: No Apparent Distress, WD/WN HEENT: PERRL/EOMI, Pharynx Normal Neck: Normal Inspection, Supple Respiratory: Lungs Clear, Normal Breath Sounds, No Respiratory Distress Cardiovascular: Regular Rate, Rhythm, No Edema, Systolic Murmur Capillary Refill: Less Than 3 Seconds Extremity: Normal Inspection, Non Tender, No Pedal Edema Neurologic/Psychiatric: Alert, Oriented x3, No Motor/Sensory Deficits, Normal Mood/Affect Skin: Normal Color, Warm/Dry Results Lab Laboratory Tests 09/08/20 10:39 09/09/20 02:47 Assessment/Plan Assessment/Plan Acute respiratory failure -- Worsening -CHeck COVID PCR -Rapid COVID is negative -PT is now requiring BiPAP -Pt will probably need intubation -repeat ABG -CXR appears worse anneliese on right Pneumonia -Worsening Leukocytosis -Change Rocephin to Merrem and add Zyvox -Schneider cultures -MRSA swab is pending -Influenza is negative HTNE - Cardene gtt currently -Hydralazine Right ureteral Obstruction -Urology is following Acute on chronic renal failure -Change NS to LR AFib Coumadin held for procedure INR 1.7 this morning Hypothyroidism Continue levothyroxine - ZHANG HERCULES DO Sep 10, 2020 05:10
--- NOTE | 2020-09-10 05:39 | Pulmonary Progress Note ---
Subjective Date Seen by a Provider: Sep 10, 2020 Time Seen by a Provider: 05:36 Subjective/Events-last exam Overnight pt was given IV hydralazine instead of PO due to elevated SBP. Pt has RLQ abdominal pain. Fentanyl was given with minimal relief. Pt was guarding RLQ on abdominal exam this morning. When keita cath was inserted pt had clear urine. Overnight it became brown in color with black sediment. Sepsis Event Evaluation Height, Weight, BMI Height: 5'9.00" Weight: 171lbs. 9.0oz. 77.271518va; 26.12 BMI Method:Stated Focused Exam Lactate Level 09/08/20 10:39: Lactic Acid Level 0.70 Exam Exam Vital Signs Date Time Temp Pulse Resp B/P (MAP) Pulse Ox O2 Delivery O2 Flow Rate FiO2 09/10/20 03:42 36.7 NIV Bilevel 80.00 09/10/20 03:00 60 15 123/50 (74) 94 NIV Bilevel 90.00 09/10/20 02:49 60 09/10/20 02:31 60 16 94 90.00 09/10/20 02:00 60 16 114/52 (72) 93 NIV Bilevel 90.00 09/10/20 01:00 60 15 139/55 (83) 93 NIV Bilevel 90.00 09/10/20 01:00 60 09/10/20 00:06 36.5 NIV Bilevel 90.00 09/10/20 00:04 60 17 91 90.00 09/10/20 00:00 62 22 150/62 (91) Vapotherm 40.00 100.00 09/09/20 23:05 40.00 100.00 09/09/20 23:00 64 31 162/65 (97) Vapotherm 20.00 75.00 09/09/20 22:00 66 23 160/63 (95) 97 Vapotherm 20.00 75.00 09/09/20 21:00 65 177/74 (108) 95 Vapotherm 20.00 75.00 09/09/20 20:45 36.0 40.00 100.00 09/09/20 20:44 85 Nasal Cannula 10.00 09/09/20 20:04 70 21 175/68 (103) 94 Vapotherm 20.00 75.00 09/09/20 19:00 67 09/09/20 19:00 67 23 168/93 (118) 88 Vapotherm 20.00 75.00 09/09/20 18:39 93 Vapotherm 100 09/09/20 18:15 161/67 (98) 09/09/20 18:00 66 21 89 Vapotherm 20.00 75.00 09/09/20 17:30 164/74 (104) 09/09/20 17:00 63 19 96 Vapotherm 20.00 75.00 09/09/20 16:00 66 16 142/56 (84) 96 Vapotherm 20.00 75.00 09/09/20 16:00 36.3 09/09/20 15:00 63 26 159/66 (97) 94 Vapotherm 20.00 75.00 09/09/20 14:00 64 22 162/85 (110) Vapotherm 20.00 75.00 09/09/20 13:00 64 09/09/20 13:00 64 27 170/68 (102) 91 Vapotherm 20.00 75.00 09/09/20 12:00 68 31 170/70 (103) 90 Vapotherm 20.00 75.00 09/09/20 11:12 37.2 09/09/20 11:00 61 15 154/64 (94) 89 Vapotherm 20.00 75.00 09/09/20 10:00 61 25 149/72 (97) 94 Vapotherm 20.00 75.00 09/09/20 09:00 64 21 157/68 (97) 91 Vapotherm 20.00 75.00 09/09/20 08:00 Vapotherm 20.00 75 09/09/20 08:00 77 14 166/65 (98) 92 Vapotherm 20.00 75.00 09/09/20 07:43 63 09/09/20 07:29 37.1 09/09/20 07:00 70 17 124/49 (74) 94 Vapotherm 20.00 75.00 09/09/20 06:00 67 19 160/66 (97) 90 Vapotherm 20.00 75.00 09/09/20 05:41 36.3 Vapotherm 75.00 I & O 09/10/20 07:00 Intake Total 1400 ml Output Total 1300 ml Balance 100 ml Height & Weight Height: 5'9.00" Weight: 171lbs. 9.0oz. 77.923499ol; 26.12 BMI Method:Stated General Appearance: No Apparent Distress, WD/WN HEENT: PERRL/EOMI, Pharynx Normal Neck: Normal Inspection, Supple Respiratory: Lungs Clear, Normal Breath Sounds, No Respiratory Distress Cardiovascular: Regular Rate, Rhythm, No Edema, Systolic Murmur Capillary Refill: Less Than 3 Seconds Extremity: Normal Inspection, Non Tender, No Pedal Edema Neurologic/Psychiatric: Alert, Oriented x3, No Motor/Sensory Deficits, Normal Mood/Affect Skin: Normal Color, Warm/Dry Results Lab Laboratory Tests 09/08/20 10:39 09/09/20 02:47 Radiology Portable CXR this morning showed right sided infiltrates. Assessment/Plan Assessment/Plan Acute respiratory failure -Currently requiring BiPAP -Pt will probably need intubation for procedure today -repeat ABG -CXR appears worse anneliese on right Pneumonia -Worsening Leukocytosis -Change Rocephin to Merrem and add Zyvox -Schneider cultures -MRSA swab is pending -Influenza is negative HTNE - Cardene gtt currently -Hydralazine Right ureteral Obstruction -Urology is following Acute on chronic renal failure -Change NS to LR AFib Coumadin held for procedure INR 1.7 this morning Hypothyroidism Continue levothyroxine BARNEY COWAN MED STUDENT Sep 10, 2020 05:39
[2020-09-10 06:05] LABS: ABG BASE EXCESS 1.7 MMOL/L (-2.5-2.5); ABG OXYGEN SATURATION 92 % (94-100); ABG PCO2 47 MMHG (35-45); ABG PH 7.37 (7.37-7.43); ABG PO2 66 MMHG (79-93)
[2020-09-10 06:06] LABS: INSPIRED O2 80; PATIENT TEMP 36.3; VENTILATOR NO
[2020-09-10 06:07] LABS: BILIRUBIN,URINE NEGATIVE (NEGATIVE); CLARITY,URINE SL CLOUDY; COLOR,URINE YELLOW; GLUCOSE, URINE (UA) NEGATIVE (NEGATIVE); KETONES,URINE 1+ (NEGATIVE); LEUKOCYTE ESTERASE ,URINE 1+ (NEGATIVE); NITRITE,URINE NEGATIVE (NEGATIVE); PH,URINE 5.5 (5-9); PROTEIN,URINE 1+ (NEGATIVE)
[2020-09-10 06:21] LABS: RBC,URINE TNTC /HPF
[2020-09-10 06:22] LABS: BACTERIA,URINE FEW /HPF; SQUAMOUS EPITHELIAL CELL,UR RARE /HPF
[2020-09-10 06:26] LABS: BASOPHILS % (AUTO) 0 % (0-10); EOSINOPHILS % (AUTO) 0 % (0-10); HEMATOCRIT 36 % (35-52); HEMOGLOBIN 11.5 g/dL (11.5-16.0); LYMPHOCYTES # (AUTO) 0.8 10^3/uL (1.0-4.0); LYMPHOCYTES % (AUTO) 6 % (12-44); MEAN CORPUSCULAR HEMOGLOBIN 31 pg (25-34); MEAN CORPUSCULAR HGB CONC 32 g/dL (32-36); MEAN CORPUSCULAR VOLUME 96 fL (80-99); MEAN PLATELET VOLUME 9.5 fL (9.0-12.2); MONOCYTES # (AUTO) 1.2 10^3/uL (0.0-1.0); MONOCYTES % (AUTO) 9 % (0-12); NEUTROPHILS # (AUTO) 11.7 10^3/uL (1.8-7.8); NEUTROPHILS % (AUTO) 85 % (42-75); PLATELET COUNT 280 10^3/uL (130-400); WHITE BLOOD COUNT 13.8 10^3/uL (4.3-11.0)
[2020-09-10] MEDS ORDERED: NS (IVPB) 250 ML ONE (06:28)
[2020-09-10 06:36] LABS: POTASSIUM 3.4 MMOL/L (3.6-5.0)
[2020-09-10] MEDS: hydrALAZINE (APESOLINE) 20 MG/ML VIAL IV PRN (06:36)
[2020-09-10] MEDS: MEROPENEM 500 MG in WATER (STERILE) FOR INJECTION 10 ML IV SCH ×3 (06:36→20:55)
[2020-09-10 06:37] LABS: CALCIUM 8.5 MG/DL (8.5-10.1); INR 1.9 (0.8-1.4); PROTHROMBIN TIME PATIENT 22.2 SEC (12.2-14.7)
[2020-09-10] MEDS: hydrALAZINE (APRESOLINE) 25 MG TAB PO SCH ×3 (06:37→20:55)
[2020-09-10 06:41] LABS: CREATININE SERUM 1.09 MG/DL (0.60-1.30); PHOSPHORUS 3.1 MG/DL (2.3-4.7)
[2020-09-10 06:43] LABS: MAGNESIUM 1.8 MG/DL (1.6-2.4)
--- NOTE | 2020-09-10 07:07 | Progress Note-Pre Operative ---
Pre-Operative Progress Note H&P Reviewed The H&P was reviewed, patient examined and no changes noted. Date Seen by Provider: Sep 10, 2020 Time Seen by Provider: 07:06 Date H&P Reviewed: Sep 10, 2020 Time H&P Reviewed: 07:06 Pre-Operative Diagnosis: RIGHT URETERAL OBSTRUCTION JL BRYSON MD Sep 10, 2020 07:07
--- NOTE | 2020-09-10 07:08 | Progress Note-Post Operative ---
Post-Operative Progess Note Surgeon (s)/Key Punch Teacher (s) Surgeon JL BRYSON MD Key Punch Teacher: NONE Pre-Operative Diagnosis RIGHT URETERAL OBSTRUCTION Post-Operative Diagnosis SAME Procedure & Operative Findings Date of Procedure 09/10/20 Procedure Performed/Findings CYSTOSCOPY WITH RETROGRADE UROGRAM EVACUATION OF CLOTS AND INSERTION OF RT STENT Anesthesia Type GENERAL Estimated Blood Loss Estimated blood loss (mL): NONE Specimens/Packing Specimens Removed NONE Packing: NONE JL BRYSON MD Sep 10, 2020 07:08
[2020-09-10] MEDS: LINEZOLID IVPB 300 ML IV SCH ×2 (07:59→20:54)
[2020-09-10] MEDS: SENNOSIDES 8.6 MG (SENOKOT) TAB PO SCH ×2 (08:00→20:54)
[2020-09-10] MEDS: amLODIPine 10 MG (NORVASC) TAB PO SCH (08:00)
[2020-09-10] MEDS: DOCUSATE SODIUM 100 MG (COLACE) CAP PO SCH ×2 (08:00→20:54)
[2020-09-10] MEDS: LEVOTHYROXINE 75 MCG (LEVOTHROID) TABLET PO SCH (08:00)
[2020-09-10] MEDS: meTOprolol TARTRATE 50 MG (LOPRESSOR) TAB PO SCH ×2 (08:00→20:54)
[2020-09-10] MEDS ORDERED: SUCCINYLCHOLINE INJ 100 MG/5 ML SYR/VIAL ONE (08:16)
[2020-09-10] MEDS ORDERED: NEOSTIGMINE 3 MG/3 ML VIAL ONE (08:16)
[2020-09-10] MEDS ORDERED: proPOfol 200 MG/20 ML (DIPRIVAN) VIAL IV ONE (08:16)
[2020-09-10] MEDS ORDERED: ROCURONIUM 10 MG/ML 5 ML SYRINGE IV ONE (08:16)
[2020-09-10] MEDS ORDERED: fentaNYL INJECTION 100 MCG/2 ML AMP ONE (08:16)
[2020-09-10] MEDS ORDERED: LIDOCAINE PF 2% 5 ML (XYLOCAINE) VIAL ONE (08:16)
[2020-09-10] MEDS ORDERED: ONDANSETRON 4 MG/2 ML (SDV) Z0FRAN ONE (08:16)
[2020-09-10] MEDS ORDERED: SEVOFLURANE (ULTANE) 15 ML INHAL SOLN ONE (08:16)
[2020-09-10] MEDS ORDERED: GLYCOPYRROLATE 0.2 MG/ML (ROBINUL) 2 ML VIAL ONE (08:16)
[2020-09-10] MEDS ORDERED: MIDAZOLAM 2 MG/2 ML (VERSED) VIAL ONE (08:18)
--- NOTE | 2020-09-10 08:37 | Diagnostic Imaging Report ---
INDICATION: Shortness of air. TECHNIQUE: Single view chest at 12:19 AM. CORRELATION STUDY: 09/09/2020. FINDINGS: Left-sided dual-chamber pacemaker is present. Loop recorder device projects over the cardiac apex. Heart size is enlarged. There is continued but likely some degree of improvement in the severity of pulmonary vascular congestion and overall edema. Diffuse asymmetric opacity at the right lung has increased, likely largely attributed to a combination of effusion along with edema and/or infiltrate. The overall severity of interstitial prominence, however, is generally improved throughout both lung batres. IMPRESSION: 1. Findings of congestive heart failure do persist but overall are generally improved with less vascular congestion and decreased interstitial edema. 2. There is increasing opacity at the right lung field, likely a combination of effusion along with edema and/or infiltrate. Followup imaging recommended. Dictated by: Dictated on workstation # [id number]
[2020-09-10] MEDS ORDERED: fentaNYL DRIP PRE-MIX 250 ML IV ONE (10:17)
[2020-09-10] MEDS ORDERED: PROPOFOL DRIP (ICU) 100 ML IV ONE (10:17)
[2020-09-10] MEDS: fentaNYL DRIP PRE-MIX 250 ML IV SCH ×2 (10:32→21:03)
[2020-09-10] MEDS: PROPOFOL DRIP (ICU) 100 ML IV SCH ×2 (10:34→18:14)
[2020-09-10 10:37] LABS: ABG BASE EXCESS 2.3 MMOL/L (-2.5-2.5); ABG OXYGEN SATURATION 88 % (94-100); ABG PCO2 46 MMHG (35-45); ABG PH 7.38 (7.37-7.43); ABG PO2 56 MMHG (79-93); ABG TCO2 28.7 MMOL/L (21.0-31.0)
[2020-09-10 10:38] LABS: ALLENS TEST YES-POS; INSPIRED O2 100%; PATIENT TEMP 35.8; VENTILATOR YES
[2020-09-10] MEDS: RT-ALBUTEROL INHALER HFA (VENTOLIN HFA) 18 GM IH PRN (12:30)
--- NOTE | 2020-09-10 12:57 | Diagnostic Imaging Report ---
INDICATION: Intubation, tube placement. TECHNIQUE: Single view chest at 12:40 PM. CORRELATION STUDY: 09/10/2020. FINDINGS: The endotracheal tube tip projects at the level of the clavicles. The gastric tube passes below the left hemidiaphragm. A right upper extremity central line tip is obscured by pacemaker leads but appears to be over the SVC. A left-sided pacemaker and a loop recorder device are present. The heart size and mediastinum are stable. TAVR is present. The severity of pulmonary vascular congestion overall is less severe and improved at followup. Bilateral pleural effusions are present, right greater than left. Scattered pulmonary parenchymal densities, particularly within the right lung field, persist but there is overall improved aeration throughout the right lung. IMPRESSION: 1. Interval intubation along with gastric tube and right upper extremity central line placement. 2. Less severity pulmonary vascular congestion and overall edema compared to the prior study. 3. Bilateral pleural effusions are present. Asymmetric parenchymal density through the right lung may reflect asymmetric edema versus infiltrate; however, there is overall improved aeration to the right lung. Dictated by: Dictated on workstation # [id number]
--- NOTE | 2020-09-10 13:06 | Progress Note - Hospitalist ---
Subjective HPI/CC On Admission Date Seen by Provider: Sep 10, 2020 Time Seen by Provider: 12:15 Corina Baker is an 79-year-old female with past medical history of hypertension, atrial fibrillation on warfarin, hypothyroidism, who presented after having a fall at home. She reports that she has been having frequent falls recently. She uses a cane and a walker when she is at home. She denies any lightheadedness or dizziness. She has not been passing out. She denies any fevers or chills. She denies any shortness of breath or cough. She denies any chest pain. She denies any abdominal pain, nausea, or vomiting. She denies any diarrhea. She denies any dysuria. She has been urinating frequently. She denies any incontinence. Subjective/Events-last exam She is intubated and sedated. Focused Exam Lactate Level 09/08/20 10:39: Lactic Acid Level 0.70 Objective Exam Vital Signs Vital Signs Date Time Temp Pulse Resp B/P (MAP) Pulse Ox O2 Delivery O2 Flow Rate FiO2 09/10/20 12:30 60 24 90 100 09/10/20 11:00 162/63 (96) NIV Bilevel 80.00 09/10/20 08:03 36.8 Capillary Refill : Less Than 3 Seconds General Appearance: No Apparent Distress, WD/WN, Other (intubated and sedated) Respiratory: No Respiratory Distress, Decreased Breath Sounds, Other (and intubated and mechanically ventilated) Cardiovascular: Regular Rate, Rhythm, No Edema, No Murmur Gastrointestinal: Normal Bowel Sounds, Non Tender, Soft Extremity: Normal Inspection, Non Tender, No Pedal Edema Neurologic/Psychiatric: Other (sedated) Skin: Normal Color, Warm/Dry Results/Procedures Lab Laboratory Tests 09/10/20 06:15 Patient resulted labs reviewed. Imaging: Reviewed Imaging Report Assessment/Plan Assessment and Plan Assess & Plan/Chief Complaint Acute respiratory failure with hypoxia Acute HFpEF Person under investigation for COVID-19 Pneumonia Pulmonology and TeleICU consulted High ventilator requirements COVID SHIVANI negative COVID PCR pending BNP elevated, echo pending Procalcitonin mildly increased Zyvox and Merrem Acute kidney injury superimposed on chronic kidney disease Obstruction of right ureter Hydroureteronephrosis CT abdomen with right hydroureteronephrosis due to extrinsic compression, unclear if due to ovary, bowel, or mass Urology consulted, Dr. Zayas Cystoscopy with ureteral stent placement today Consider MRI following cystoscopy if needed IV fluids Essential HTN Continue antihypertensives AFib Coumadin held for procedure INR 1.9 this morning Hypothyroidism Continue levothyroxine DVT prophylaxis: held for procedure HTN emergency, resolved Diagnosis/Problems Diagnosis/Problems (1) Acute respiratory failure with hypoxia Status: Acute (2) Acute kidney injury superimposed on chronic kidney disease Status: Acute (3) Obstruction of right ureter Status: Acute (4) Hypertensive emergency Status: Acute (5) Acute heart failure with preserved ejection fraction (HFpEF) Status: Acute (6) On Coumadin for atrial fibrillation Status: Chronic (7) Paroxysmal A-fib Status: Chronic (8) Hypothyroidism Status: Chronic (9) HTN (hypertension) Status: Chronic (10) Hydroureteronephrosis Status: Acute NOE MARQUEZ MD Sep 10, 2020 13:06
[2020-09-10] MEDS: LACTATED RINGERS 1,000 ML IV SCH ×2 (13:46→20:53)
[2020-09-10] MEDS ORDERED: IPRATROPIUM INHALER (ATROVENT) 12.9 GM INH PRN (14:00)
[2020-09-10] MEDS: RT-ALBUTEROL INHALER HFA (VENTOLIN HFA) 18 GM IH SCH ×3 (14:43→21:47)
[2020-09-10] MEDS: IPRATROPIUM INHALER (ATROVENT) 12.9 GM INH SCH ×3 (14:43→21:47)
[2020-09-10] MEDS ORDERED: LACTATED RINGERS 1,000 ML IV SCH (15:45)
--- NOTE | 2020-09-10 16:07 | OPERATIVE REPORT ---
DATE OF SERVICE: 09/10/2020 PREOPERATIVE DIAGNOSIS: Right ureteral obstruction. POSTOPERATIVE DIAGNOSIS: Right ureteral obstruction. OPERATION PERFORMED: Cystoscopy, right retrograde urogram and insertion of right ureteral stent. SURGEON: Pb Bryson MD ANESTHESIA: General. COMPLICATIONS: None. DESCRIPTION OF PROCEDURE: Under satisfactory general anesthesia with the patient intubated in the TUI room in surgery. She was put in the lithotomy position, prepped and draped in the usual sterile fashion. Cystoscope was introduced in the bladder. Essentially, the bladder was normal except that the ureteral orifice intramural portion were kind of swollen and edematous. There were very few small clots in the bladder, which I evacuated. I inserted a cone-tipped ureteral catheter in the right ureteral orifice and injected contrast. There was filling of the whole system all the way up to the kidney, no back flow at all and really no much dilatation of the pelvis and/or the ureter. There was quite a bit of curving of the ureter, so I went ahead and decided to put a stent to drain that kidney in case I inserted a [id number] 26 cm double-J stent and with some manipulation guided fluoroscopically, I was able to pass it all the way to the right renal pelvis. The guidewire was removed and the stent was seen draining nicely proximally and distally endoscopically. Bladder was evacuated and the cystoscope was removed. The patient tolerated the procedure and anesthesia well and was sent to recovery room in stable condition. Job ID: [id number] DocumentID: [id number] Dictated Date: 09/10/2020 09:39:32 Clinic Scheduler Date: 09/10/2020 10:53:02 Dictated By: PB BRYSON MD
[2020-09-10] MEDS ORDERED: NOREPINEPHRINE 4 MG/250 ML 250 ML IV ONE (17:56)
[2020-09-10] MEDS: NOREPINEPHRINE 4 MG/250 ML 250 ML IV SCH (18:14)
[2020-09-10] MEDS ORDERED: NS IV 500 ML 500 ML IV SCH (21:30)
[2020-09-10] MEDS ORDERED: NS IV 500 ML 500 ML ONE (21:35)
[2020-09-11] VITALS (25 sets, daily range): BP systolic 112–236; BP diastolic 53–74
[2020-09-11] MEDS: LACTATED RINGERS 1,000 ML IV SCH ×4 (00:47→23:25)
[2020-09-11] MEDS: IPRATROPIUM INHALER (ATROVENT) 12.9 GM INH SCH ×6 (01:39→22:07)
[2020-09-11] MEDS: RT-ALBUTEROL INHALER HFA (VENTOLIN HFA) 18 GM IH SCH ×5 (01:39→18:12)
[2020-09-11] MEDS: NOREPINEPHRINE 4 MG/250 ML 250 ML IV SCH ×3 (03:52→17:39)
[2020-09-11 03:56] LABS: BASOPHILS % (AUTO) 0 % (0-10); EOSINOPHILS % (AUTO) 0 % (0-10); HEMATOCRIT 33 % (35-52); HEMOGLOBIN 10.6 g/dL (11.5-16.0); LYMPHOCYTES # (AUTO) 0.5 10^3/uL (1.0-4.0); LYMPHOCYTES % (AUTO) 4 % (12-44); MEAN CORPUSCULAR HEMOGLOBIN 31 pg (25-34); MEAN CORPUSCULAR HGB CONC 32 g/dL (32-36); MEAN CORPUSCULAR VOLUME 97 fL (80-99); MEAN PLATELET VOLUME 9.9 fL (9.0-12.2); MONOCYTES # (AUTO) 0.8 10^3/uL (0.0-1.0); MONOCYTES % (AUTO) 6 % (0-12); NEUTROPHILS # (AUTO) 12.8 10^3/uL (1.8-7.8); NEUTROPHILS % (AUTO) 90 % (42-75); PLATELET COUNT 383 10^3/uL (130-400); WHITE BLOOD COUNT 14.2 10^3/uL (4.3-11.0)
[2020-09-11 03:58] LABS: ABG OXYGEN SATURATION 92 % (94-100); ABG PCO2 51 MMHG (35-45); ABG PO2 68 MMHG (79-93); ABG TCO2 27.2 MMOL/L (21.0-31.0)
[2020-09-11 04:00] LABS: ABG PH 7.32 (7.37-7.43); ALLENS TEST POSITIVE; INSPIRED O2 30%; PATIENT TEMP 36.1; VENTILATOR YES
[2020-09-11 04:08] LABS: INR 2.5 (0.8-1.4)
[2020-09-11 04:13] LABS: CREATININE SERUM 1.82 MG/DL (0.60-1.30); MAGNESIUM 1.7 MG/DL (1.6-2.4); PHOSPHORUS 4.1 MG/DL (2.3-4.7); POTASSIUM 3.8 MMOL/L (3.6-5.0)
[2020-09-11] MEDS ORDERED: LACTATED RINGERS 1,000 ML IV SCH ×2 (05:00→10:15)
--- NOTE | 2020-09-11 05:03 | Pulmonary Progress Note ---
Subjective Time Seen by a Provider: 04:58 Subjective/Events-last exam Sedated on vent Sepsis Event Evaluation Height, Weight, BMI Height: 5'9.00" Weight: 171lbs. 9.0oz. 77.653581qn; 26.12 BMI Method:Stated Focused Exam Lactate Level 09/08/20 10:39: Lactic Acid Level 0.70 Exam Exam Vital Signs Date Time Temp Pulse Resp B/P (MAP) Pulse Ox O2 Delivery O2 Flow Rate FiO2 09/11/20 04:00 60 24 125/55 (78) 92 Mechanical Ventilator 30.00 09/11/20 03:38 30.00 09/11/20 03:00 60 24 138/59 (85) 96 Mechanical Ventilator 65.00 09/11/20 02:00 60 24 139/60 (86) 92 Mechanical Ventilator 65.00 09/11/20 01:40 65 09/11/20 01:39 60 24 94 45 09/11/20 01:00 61 09/11/20 01:00 60 23 112/57 (75) 93 Mechanical Ventilator 65.00 09/11/20 00:00 60 23 130/54 (79) 97 Mechanical Ventilator 65.00 09/10/20 23:00 60 24 124/54 (77) 96 Mechanical Ventilator 65.00 09/10/20 22:00 60 23 123/57 (79) 92 Mechanical Ventilator 65.00 09/10/20 21:49 65 09/10/20 21:47 60 24 96 60 09/10/20 21:31 Mechanical Ventilator 65.00 09/10/20 21:00 60 18 111/51 (71) 97 Mechanical Ventilator 90.00 09/10/20 20:00 60 24 118/51 (73) 98 Mechanical Ventilator 90.00 09/10/20 20:00 NIV Bilevel 65 09/10/20 19:02 36.3 09/10/20 19:00 60 09/10/20 19:00 60 24 108/53 (71) 98 Mechanical Ventilator 90.00 09/10/20 18:56 90 09/10/20 18:49 60 24 97 90 09/10/20 18:14 60 85/49 09/10/20 18:14 60 09/10/20 18:00 60 24 85/49 (61) 98 Mechanical Ventilator 90.00 09/10/20 17:00 60 23 97/53 (68) 98 Mechanical Ventilator 90.00 09/10/20 16:00 60 24 95/54 (68) 98 Mechanical Ventilator 90.00 09/10/20 15:39 35.9 09/10/20 15:10 Mechanical Ventilator 90.00 09/10/20 15:00 60 24 86/52 (63) 93 Mechanical Ventilator 80.00 09/10/20 14:49 90 09/10/20 14:43 60 24 98 100 09/10/20 14:00 60 24 91/53 (66) 98 Mechanical Ventilator 80.00 09/10/20 13:00 60 23 87/51 (63) 96 Mechanical Ventilator 80.00 09/10/20 12:30 60 24 90 100 09/10/20 12:26 60 09/10/20 12:00 60 24 103/55 (71) 90 Mechanical Ventilator 80.00 09/10/20 11:00 64 24 162/63 (96) 97 Mechanical Ventilator 80.00 09/10/20 10:34 67 166/78 09/10/20 10:05 68 25 93 100 09/10/20 10:00 64 24 147/58 (87) 93 Mechanical Ventilator 80.00 09/10/20 08:05 NIV Bilevel 80 09/10/20 08:03 36.8 09/10/20 08:00 65 16 135/90 (105) 94 NIV Bilevel 80.00 09/10/20 07:00 60 16 136/51 (79) 96 NIV Bilevel 80.00 09/10/20 06:51 60 16 96 80.00 09/10/20 06:44 62 09/10/20 06:00 63 15 165/65 (98) 94 NIV Bilevel 80.00 09/10/20 05:00 61 16 142/55 (84) 95 NIV Bilevel 80.00 I & O 09/11/20 07:00 Intake Total 2150 ml Output Total 580 ml Balance 1570 ml Height & Weight Height: 5'9.00" Weight: 171lbs. 9.0oz. 77.708434ba; 26.12 BMI Method:Stated General Appearance: WD/WN, Other (intubated and sedated) HEENT: PERRL/EOMI, Pharynx Normal Neck: Normal Inspection, Supple Respiratory: No Respiratory Distress, Decreased Breath Sounds, Other (and intubated and mechanically ventilated) Cardiovascular: Regular Rate, Rhythm, No Edema, No Murmur Capillary Refill: Less Than 3 Seconds Extremity: Normal Inspection, Non Tender, No Pedal Edema Neurologic/Psychiatric: Other (sedated) Skin: Normal Color, Warm/Dry Results Lab Laboratory Tests 09/10/20 06:15 09/11/20 03:20 Assessment/Plan Assessment/Plan Acute respiratory failure -- Worsening -COVID is negative ` -D/C Isolation -Intubated during surgery yesterday -Not ready for extubation yet -CXR and labs reviewed Pneumonia L>R -Merrem and Zyvox -Schneider cultures -MRSA swab is pending -Influenza is negative Hypotension -- with decreased UO -Levophed -Give another liter bolus of LR Right ureteral Obstruction s/p surgery -Urology is following Acute on chronic renal failure -LR at 150 currently AFib HX -Coumadin therapy -INR is 2 today. Hypothyroidism Continue levothyroxine ZHANG HERCULES DO Sep 11, 2020 05:03
[2020-09-11] MEDS: PROPOFOL DRIP (ICU) 100 ML IV SCH ×2 (06:07→17:06)
[2020-09-11] MEDS: hydrALAZINE (APRESOLINE) 25 MG TAB PO SCH ×3 (06:07→21:59)
[2020-09-11] MEDS: MEROPENEM 500 MG in WATER (STERILE) FOR INJECTION 10 ML IV SCH ×3 (06:12→21:59)
[2020-09-11] MEDS: fentaNYL DRIP PRE-MIX 250 ML IV SCH ×3 (06:12→23:25)
--- NOTE | 2020-09-11 07:15 | Anesthesia-General Post-Op ---
General Patient Condition Mental Status/LOC: Same as Preop Cardiovascular: Satisfactory Nausea/Vomiting: Absent Respiratory: Satisfactory (still requiring mechanical ventilation) Pain: Controlled Complications: Absent Post Op Complications Complications None Follow Up Care/Instructions Patient Instructions None needed. Anesthesia/Patient Condition Patient Condition Patient is doing well, stable vital signs, no apparent adverse anesthesia problems. No complications reported per nursing. JEANIE RIDER CRNA Sep 11, 2020 07:15
--- NOTE | 2020-09-11 07:45 | Diagnostic Imaging Report ---
EXAM: CHEST 1 VIEW, AP/PA ONLY INDICATION: Respiratory failure. COMPARISON: Chest radiograph 09/10/2020, FINDINGS: Right PICC tip low SVC. ETT tip at the level of the clavicles. NG tube tip in the stomach. Cardiac pacer. Calcified aorta. Normal heart size. Dense airspace opacities throughout the right lung and left lung base are similar to yesterday. Implantable loop recorder. IMPRESSION: 1. Persistent dense airspace opacities throughout the right lung and left lung base. 2. Support lines in the expected positions. Dictated by: Dictated on workstation # [id number]
[2020-09-11] MEDS: LINEZOLID IVPB 300 ML IV SCH (08:45)
[2020-09-11] MEDS: DOCUSATE SODIUM 100 MG (COLACE) CAP PO SCH ×2 (08:45→20:34)
[2020-09-11] MEDS: SENNOSIDES 8.6 MG (SENOKOT) TAB PO SCH ×2 (08:46→20:34)
[2020-09-11] MEDS: amLODIPine 10 MG (NORVASC) TAB PO SCH (08:46)
[2020-09-11] MEDS: meTOprolol TARTRATE 50 MG (LOPRESSOR) TAB PO SCH ×2 (08:46→20:34)
[2020-09-11] MEDS: LEVOTHYROXINE 75 MCG (LEVOTHROID) TABLET PO SCH (09:16)
--- NOTE | 2020-09-11 11:02 | Progress Note - Urology ---
Progress Note-Urology Progress Notes/Assess & Plan Progress/Assessment & Plan ON THE RESPIRATOR. CREATININE 1.8 (IMPROVED). LOW URINE OUTPUT PROBABLY COMBINATION OF PRE AND RENAL AZOOTEMIA. ?LASIX Final Diagnosis RT URETERAL OBSTRUCTION POST STENT JL BRYSON MD Sep 11, 2020 11:02
--- NOTE | 2020-09-11 11:09 | Progress Note - Hospitalist ---
Subjective HPI/CC On Admission Date Seen by Provider: Sep 11, 2020 Time Seen by Provider: 08:50 Corina Baker is an 79-year-old female with past medical history of hypertension, atrial fibrillation on warfarin, hypothyroidism, who presented after having a fall at home. She reports that she has been having frequent falls recently. She uses a cane and a walker when she is at home. She denies any lightheadedness or dizziness. She has not been passing out. She denies any fevers or chills. She denies any shortness of breath or cough. She denies any chest pain. She denies any abdominal pain, nausea, or vomiting. She denies any diarrhea. She denies any dysuria. She has been urinating frequently. She denies any incontinence. Subjective/Events-last exam She is intubated and sedated. Objective Exam Vital Signs Vital Signs Date Time Temp Pulse Resp B/P (MAP) Pulse Ox O2 Delivery O2 Flow Rate FiO2 09/11/20 09:22 60 24 91 30 09/11/20 08:45 Mechanical Ventilator 09/11/20 08:13 35.9 09/11/20 07:00 129/53 (78) 30.00 Capillary Refill : Less Than 3 Seconds General Appearance: No Apparent Distress, Other (intubated) Neck: Normal Inspection, Supple Respiratory: No Respiratory Distress, Decreased Breath Sounds, Other (intubated and mechanically ventilated) Cardiovascular: Regular Rate, Rhythm, No Edema, No Murmur Gastrointestinal: Normal Bowel Sounds, Non Tender, Soft Extremity: Normal Inspection, Non Tender, No Pedal Edema Neurologic/Psychiatric: Alert, Other (awake and following commands) Skin: Normal Color, Warm/Dry Results/Procedures Lab Laboratory Tests 09/11/20 03:20 Patient resulted labs reviewed. Imaging: Reviewed Imaging Report Assessment/Plan Assessment and Plan Assess & Plan/Chief Complaint Acute respiratory failure with hypoxia Acute HFpEF Person under investigation for COVID-19 Pneumonia Pulmonology and TeleICU consulted Ventilator requirements improving, weaning PEEP today COVID negative BNP elevated, echo showed hyperdynamic left ventricle with EF 80% Chest xray with dense right lung consolidation Zyvox and Merrem Acute kidney injury superimposed on chronic kidney disease Obstruction of right ureter Hydroureteronephrosis CT abdomen with right hydroureteronephrosis due to extrinsic compression, unclear if due to ovary, bowel, or mass Urology consulted, Dr. Zayas Cystoscopy with ureteral stent placement 2/3 Consider MRI following cystoscopy for further evaluation of urteral obstruction IV fluids Essential HTN Continue antihypertensives AFib INR 2.5 Resume Coumadin Hypothyroidism Continue levothyroxine DVT prophylaxis: already receiving therapeutic anticoagulation HTN emergency, resolved Diagnosis/Problems Diagnosis/Problems (1) Acute respiratory failure with hypoxia Status: Acute (2) Acute kidney injury superimposed on chronic kidney disease Status: Acute (3) Obstruction of right ureter Status: Acute (4) Hypertensive emergency Status: Acute (5) Acute heart failure with preserved ejection fraction (HFpEF) Status: Acute (6) On Coumadin for atrial fibrillation Status: Chronic (7) Paroxysmal A-fib Status: Chronic (8) Hypothyroidism Status: Chronic (9) HTN (hypertension) Status: Chronic (10) Hydroureteronephrosis Status: Acute NOE MARQUEZ MD Sep 11, 2020 11:09
[2020-09-11] MEDS ORDERED: warFARin 4 MG (COUMADIN) TAB PO SCH (18:00)
[2020-09-11] MEDS: RT-ALBUTEROL INHALER HFA (VENTOLIN HFA) 18 GM IH PRN (22:07)
[2020-09-12] VITALS (27 sets, daily range): BP systolic 123–205; BP diastolic 51–92
[2020-09-12] MEDS: RT-ALBUTEROL INHALER HFA (VENTOLIN HFA) 18 GM IH SCH ×7 (01:34→22:21)
[2020-09-12] MEDS: IPRATROPIUM INHALER (ATROVENT) 12.9 GM INH SCH ×6 (01:35→22:21)
[2020-09-12] MEDS: NOREPINEPHRINE 4 MG/250 ML 250 ML IV SCH ×3 (02:24→17:24)
[2020-09-12 02:29] LABS: ABG BASE EXCESS 1.4 MMOL/L (-2.5-2.5); ABG OXYGEN SATURATION 80 % (94-100); ABG PCO2 38 MMHG (35-45); ABG PH 7.43 (7.37-7.43); ABG PO2 47 MMHG (79-93); ABG TCO2 26.6 MMOL/L (21.0-31.0)
[2020-09-12 02:30] LABS: ALLENS TEST YES-POS; BASOPHILS % (AUTO) 0 % (0-10); EOSINOPHILS % (AUTO) 0 % (0-10); HEMATOCRIT 28 % (35-52); HEMOGLOBIN 9.1 g/dL (11.5-16.0); INSPIRED O2 30%; LYMPHOCYTES # (AUTO) 0.8 10^3/uL (1.0-4.0); LYMPHOCYTES % (AUTO) 7 % (12-44); MEAN CORPUSCULAR HEMOGLOBIN 31 pg (25-34); MEAN CORPUSCULAR HGB CONC 32 g/dL (32-36); MEAN CORPUSCULAR VOLUME 96 fL (80-99); MEAN PLATELET VOLUME 9.9 fL (9.0-12.2); MONOCYTES # (AUTO) 1.1 10^3/uL (0.0-1.0); MONOCYTES % (AUTO) 9 % (0-12); NEUTROPHILS # (AUTO) 10.5 10^3/uL (1.8-7.8); NEUTROPHILS % (AUTO) 84 % (42-75); PLATELET COUNT 308 10^3/uL (130-400); VENTILATOR YES; WHITE BLOOD COUNT 12.5 10^3/uL (4.3-11.0)
[2020-09-12 02:41] LABS: POTASSIUM 3.4 MMOL/L (3.6-5.0)
[2020-09-12 02:42] LABS: CALCIUM 7.3 MG/DL (8.5-10.1)
[2020-09-12 02:43] LABS: PROTHROMBIN TIME PATIENT 31.7 SEC (12.2-14.7)
[2020-09-12 02:47] LABS: CREATININE SERUM 1.4 MG/DL (0.60-1.30); PHOSPHORUS 2.6 MG/DL (2.3-4.7)
[2020-09-12 02:49] LABS: MAGNESIUM 1.7 MG/DL (1.6-2.4)
--- NOTE | 2020-09-12 03:52 | Pulmonary Progress Note ---
Subjective Time Seen by a Provider: 03:47 Subjective/Events-last exam Pt is sedated on vent. Sepsis Event Evaluation Height, Weight, BMI Height: 5'9.00" Weight: 171lbs. 9.0oz. 77.597071cg; 26.12 BMI Method:Stated Exam Exam Vital Signs Date Time Temp Pulse Resp B/P (MAP) Pulse Ox O2 Delivery O2 Flow Rate FiO2 09/12/20 01:37 30 09/12/20 01:35 58 24 94 30 09/12/20 01:35 Mechanical Ventilator 30 09/12/20 01:00 70 09/12/20 00:00 62 23 146/66 (92) 96 Mechanical Ventilator 30.00 09/11/20 23:00 60 23 136/64 (88) 95 Mechanical Ventilator 30.00 09/11/20 22:10 30 09/11/20 22:07 60 24 91 30 09/11/20 22:07 Mechanical Ventilator 30 09/11/20 22:00 58 23 164/72 (102) 96 Mechanical Ventilator 30.00 09/11/20 21:00 66 24 151/69 (96) 96 Mechanical Ventilator 30.00 09/11/20 20:00 60 26 141/65 (90) 94 Mechanical Ventilator 30.00 09/11/20 20:00 95 NIV Bilevel 30 09/11/20 19:00 60 09/11/20 19:00 60 24 131/58 (82) 94 Mechanical Ventilator 30.00 09/11/20 18:20 30 09/11/20 18:13 60 24 93 30 09/11/20 18:00 60 23 142/66 (91) 94 Mechanical Ventilator 30.00 09/11/20 17:06 60 140/60 09/11/20 17:00 60 23 152/67 (95) 94 Mechanical Ventilator 30.00 09/11/20 16:00 60 24 129/59 (82) 94 Mechanical Ventilator 30.00 09/11/20 15:48 36.4 09/11/20 15:00 60 24 139/61 (87) 94 Mechanical Ventilator 30.00 09/11/20 14:21 60 24 92 30 09/11/20 14:00 60 23 124/58 (80) 93 Mechanical Ventilator 30.00 09/11/20 13:00 60 09/11/20 13:00 60 23 114/53 (73) 93 Mechanical Ventilator 30.00 09/11/20 12:18 36.4 09/11/20 12:00 60 23 133/56 (81) 94 Mechanical Ventilator 30.00 09/11/20 11:00 60 24 128/55 (79) 93 Mechanical Ventilator 30.00 09/11/20 10:00 60 23 135/55 (81) 91 Mechanical Ventilator 30.00 09/11/20 09:22 60 24 91 30 09/11/20 09:00 60 23 236/55 (115) 90 Mechanical Ventilator 30.00 09/11/20 08:45 90 Mechanical Ventilator 30 09/11/20 08:13 35.9 09/11/20 08:00 60 23 132/57 (82) 90 Mechanical Ventilator 30.00 09/11/20 07:00 60 09/11/20 07:00 60 24 129/53 (78) 93 Mechanical Ventilator 30.00 09/11/20 06:45 60 24 92 30 09/11/20 06:44 60 24 94 30 09/11/20 06:35 Mechanical Ventilator 30.00 09/11/20 06:07 60 92/43 09/11/20 06:00 60 23 122/60 (80) 93 Mechanical Ventilator 30.00 09/11/20 05:00 60 23 125/55 (78) 93 Mechanical Ventilator 30.00 09/11/20 04:00 60 24 125/55 (78) 92 Mechanical Ventilator 30.00 I & O 09/12/20 07:00 Intake Total 4900 ml Output Total 890 ml Balance 4010 ml Height & Weight Height: 5'9.00" Weight: 171lbs. 9.0oz. 77.560023uh; 26.12 BMI Method:Stated General Appearance: No Apparent Distress, Other (intubated) HEENT: PERRL/EOMI, Pharynx Normal Neck: Normal Inspection, Supple Respiratory: No Respiratory Distress, Decreased Breath Sounds, Other (intubated and mechanically ventilated) Cardiovascular: Regular Rate, Rhythm, No Edema, No Murmur Capillary Refill: Less Than 3 Seconds Extremity: Normal Inspection, Non Tender, No Pedal Edema Neurologic/Psychiatric: Alert, Other (awake and following commands) Skin: Normal Color, Warm/Dry Results Lab Laboratory Tests 09/10/20 06:15 09/11/20 03:20 09/12/20 02:19 Assessment/Plan Assessment/Plan Acute respiratory failure -- Worsening -COVID is negative ` -D/C Isolation -Intubated during surgery yesterday Will do weaning trail today. -CXR and labs reviewed -Decrease IVF from 150 to 30ml/hr Pneumonia L>R -Merrem -Schneider cultures -MRSA swab is negative -Influenza is negative Hypotension -- now resolved -Levophed -- now off Right ureteral Obstruction s/p surgery -Urology is following Acute on chronic renal failure AFib HX -Coumadin therapy -INR is 2 today. Hypothyroidism Continue levothyroxine ZHANG HERCULES DO Sep 12, 2020 03:52
[2020-09-12] MEDS: PROPOFOL DRIP (ICU) 100 ML IV SCH ×3 (04:20→21:48)
[2020-09-12] MEDS: POTASSIUM CL 10MEQ/50ML IVPB 50 ML IV SCH ×3 (04:35→06:25)
[2020-09-12] MEDS: hydrALAZINE (APESOLINE) 20 MG/ML VIAL IV PRN ×5 (04:35→16:22)
[2020-09-12] MEDS ORDERED: DexMEDEtomidine PRE MIX 100 ML IV ONE (04:45)
[2020-09-12 05:02] LABS: ABG BASE EXCESS 1.6 MMOL/L (-2.5-2.5); ABG OXYGEN SATURATION 92 % (94-100); ABG PCO2 43 MMHG (35-45); ABG PO2 68 MMHG (79-93); ABG TCO2 27.5 MMOL/L (21.0-31.0)
[2020-09-12 05:03] LABS: ALLENS TEST YES-POS; INSPIRED O2 30%; VENTILATOR YES
[2020-09-12] MEDS ORDERED: LABETALOL HCL 20 MG/4 ML VIAL ONE (05:04)
[2020-09-12] MEDS ORDERED: LABETALOL HCL 20 MG/4 ML VIAL IV ONE (05:15)
[2020-09-12] MEDS: DexMEDEtomidine PRE MIX 100 ML IV SCH ×2 (05:18→16:53)
[2020-09-12] MEDS: MEROPENEM 500 MG in WATER (STERILE) FOR INJECTION 10 ML IV SCH ×3 (06:58→21:53)
--- NOTE | 2020-09-12 07:15 | Diagnostic Imaging Report ---
INDICATION: Shortness of air. TECHNIQUE: Single view chest 12:49 AM. CORRELATION STUDY: 09/11/2020 FINDINGS: Endotracheal tube, gastric tube and right-sided central line stable. Heart size enlarged with presence of a TAVR. Loop recorder device. Vasculature overall is prominent. Bilateral pulmonary opacities right greater than left persisting. Slightly increased at the right lung base. IMPRESSION: 1. Stable support lines and tubes. 2. Bilateral pulmonary opacities right greater than left persisting. Slightly increased at the right lung base. Likely combination of effusion along with infiltrates. Dictated by: Dictated on workstation # [id number]
[2020-09-12] MEDS ORDERED: POTASSIUM PHOSPHATE INJ 15 MM in NS (IVPB) 250 ML IV ONE (08:00)
[2020-09-12] MEDS ORDERED: hydrALAZINE (APESOLINE) 20 MG/ML VIAL IV NR (08:30)
[2020-09-12] MEDS: DOCUSATE SODIUM 100 MG (COLACE) CAP PO SCH ×2 (08:51→19:38)
[2020-09-12] MEDS: hydrALAZINE (APRESOLINE) 25 MG TAB PO SCH ×3 (08:51→21:48)
[2020-09-12] MEDS: SENNOSIDES 8.6 MG (SENOKOT) TAB PO SCH ×2 (08:51→19:38)
[2020-09-12] MEDS: LEVOTHYROXINE 75 MCG (LEVOTHROID) TABLET PO SCH (09:04)
[2020-09-12] MEDS: meTOprolol TARTRATE 50 MG (LOPRESSOR) TAB PO SCH ×2 (09:04→19:38)
[2020-09-12] MEDS: amLODIPine 10 MG (NORVASC) TAB PO SCH (09:04)
--- NOTE | 2020-09-12 09:04 | Speech Therapy Progress Note ---
Therapy Progress Note attempted to complete Bedside Dysphagia Evaluation, however when patient was presented 1/2 tsp of thin liquids, she just spit it out after clearing her throat each time. ST will follow up this afternoon. Findings reported to her nurse. ESTEBAN BYRD Sep 12, 2020 09:03
[2020-09-12] MEDS: LABETALOL HCL 20 MG/4 ML VIAL IV PRN ×4 (09:37→17:35)
--- NOTE | 2020-09-12 09:46 | Progress Note - Urology ---
Progress Note-Urology Progress Notes/Assess & Plan Progress/Assessment & Plan EXTUBATED. URINE OUTPUT BATTER. CREATININE 1.4 Final Diagnosis RT URETERAL OBSTRUCTION JL BRYSON MD Sep 12, 2020 09:46
--- NOTE | 2020-09-12 10:00 | Progress Note - Hospitalist ---
Subjective HPI/CC On Admission Date Seen by Provider: Sep 12, 2020 Time Seen by Provider: 08:45 Corina Baker is an 79-year-old female with past medical history of hypertension, atrial fibrillation on warfarin, hypothyroidism, who presented after having a fall at home. She reports that she has been having frequent falls recently. She uses a cane and a walker when she is at home. She denies any lightheadedness or dizziness. She has not been passing out. She denies any fevers or chills. She denies any shortness of breath or cough. She denies any chest pain. She denies any abdominal pain, nausea, or vomiting. She denies any diarrhea. She denies any dysuria. She has been urinating frequently. She denies any incontinence. Subjective/Events-last exam She was extubated this morning. She is alert but disoriented. She is able to follow some commands. Objective Exam Vital Signs Vital Signs Date Time Temp Pulse Resp B/P (MAP) Pulse Ox O2 Delivery O2 Flow Rate FiO2 09/12/20 09:00 72 12 177/78 (111) 91 Mechanical Ventilator 30.00 09/12/20 08:10 40 09/12/20 07:55 36.5 Capillary Refill : Less Than 3 Seconds General Appearance: No Apparent Distress, WD/WN HEENT: PERRL/EOMI, Pharynx Normal Neck: Normal Inspection, Supple Respiratory: No Respiratory Distress, Decreased Breath Sounds Cardiovascular: Regular Rate, Rhythm, No Murmur Gastrointestinal: Normal Bowel Sounds, Soft Extremity: Normal Inspection, Pedal Edema Neurologic/Psychiatric: Alert, Disoriented, Motor Weakness, Other (PERRL/EOMI, CN12 intact, able to wiggle toes bilaterally, moving bilateral arms spontaneously) Skin: Normal Color, Warm/Dry Results/Procedures Lab Laboratory Tests 09/12/20 02:19 Patient resulted labs reviewed. Imaging: Reviewed Imaging Report Assessment/Plan Assessment and Plan Assess & Plan/Chief Complaint Acute respiratory failure with hypoxia Pneumonia Pulmonology and TeleICU consulted Extubated this morning BNP elevated, echo showed hyperdynamic left ventricle with EF 80% Chest xray with dense right lung consolidation Continue Merrem Acute kidney injury superimposed on chronic kidney disease Obstruction of right ureter Hydroureteronephrosis CT abdomen with right hydroureteronephrosis due to extrinsic compression, unclear if due to ovary, bowel, or mass Urology consulted, Dr. Zayas Cystoscopy with ureteral stent placement 2/3 Consider MRI following cystoscopy for further evaluation of urteral obstruction IV fluids Essential HTN Hydralazine and Labetalol as needed Resume home antihypertensives when able to take by mouth AFib INR 3 Continue Coumadin Hypothyroidism Continue levothyroxine DVT prophylaxis: already receiving therapeutic anticoagulation HTN emergency, resolved Acute HFpEF, resolved Diagnosis/Problems Diagnosis/Problems (1) Acute respiratory failure with hypoxia Status: Acute (2) Acute kidney injury superimposed on chronic kidney disease Status: Acute (3) Obstruction of right ureter Status: Acute (4) Hypertensive emergency Status: Resolved Resolution Date/Time: 09/12/20 @ 09:59 (5) Acute heart failure with preserved ejection fraction (HFpEF) Status: Acute (6) On Coumadin for atrial fibrillation Status: Chronic (7) Paroxysmal A-fib Status: Chronic (8) Hypothyroidism Status: Chronic (9) HTN (hypertension) Status: Chronic (10) Hydroureteronephrosis Status: Acute NOE MARQUEZ MD Sep 12, 2020 10:00
[2020-09-12] MEDS ORDERED: hydrALAZINE (APESOLINE) 20 MG/ML VIAL IV SCH (10:30)
[2020-09-12 10:55] LABS: ABG BASE EXCESS -0.3 MMOL/L (-2.5-2.5); ABG OXYGEN SATURATION 93 % (94-100); ABG PCO2 46 MMHG (35-45); ABG PH 7.35 (7.37-7.43); ABG PO2 75 MMHG (79-93); ABG TCO2 26.2 MMOL/L (21.0-31.0)
[2020-09-12 10:56] LABS: ALLENS TEST YES-POS; INSPIRED O2 15L; PATIENT TEMP 36.4; VENTILATOR NO
[2020-09-12] MEDS: LACTATED RINGERS 1,000 ML IV SCH (11:50)
--- NOTE | 2020-09-12 13:20 | Speech Therapy Progress Note ---
Therapy Progress Note attempted to complete the Bedside Dysphagia Evaluation again this afternoon. Patient spit out her 1/2 tsp presentations of thin liquids without attempting to swallow. Patient's eyes are slightly glazed over and she stares in to the light. ESTEBAN BYRD Sep 12, 2020 13:20
[2020-09-12] MEDS: fentaNYL INJECTION 100 MCG/2 ML AMP IVP PRN (15:18)
[2020-09-12 16:00] LABS: ABG BASE EXCESS 0.3 MMOL/L (-2.5-2.5); ABG OXYGEN SATURATION 95 % (94-100); ABG PCO2 53 MMHG (35-45); ABG PO2 89 MMHG (79-93); ABG TCO2 27.7 MMOL/L (21.0-31.0)
[2020-09-12 16:01] LABS: ALLENS TEST YES-POS; INSPIRED O2 40%; PATIENT TEMP 36.4; VENTILATOR NO
[2020-09-12 16:02] LABS: ABG PH 7.31 (7.37-7.43)
[2020-09-12] MEDS ORDERED: KETOROLAC 30 MG/ML VIAL ONE (17:22)
[2020-09-12 18:41] LABS: ABG BASE EXCESS 0.7 MMOL/L (-2.5-2.5); ABG OXYGEN SATURATION 88 % (94-100); ABG PCO2 47 MMHG (35-45); ABG PH 7.36 (7.37-7.43); ABG PO2 61 MMHG (79-93); ABG TCO2 27.2 MMOL/L (21.0-31.0)
[2020-09-12 18:42] LABS: ALLENS TEST pos; INSPIRED O2 30L; VENTILATOR NO
[2020-09-12 18:43] LABS: PATIENT TEMP 36.4
[2020-09-13] VITALS (24 sets, daily range): BP systolic 146–236; BP diastolic 57–94
[2020-09-13] MEDS: fentaNYL INJECTION 100 MCG/2 ML AMP IVP PRN (00:14)
[2020-09-13] MEDS: hydrALAZINE (APESOLINE) 20 MG/ML VIAL IV PRN ×2 (00:14→07:48)
[2020-09-13] MEDS: NOREPINEPHRINE 4 MG/250 ML 250 ML IV SCH ×2 (00:19→08:51)
[2020-09-13] MEDS: RT-ALBUTEROL INHALER HFA (VENTOLIN HFA) 18 GM IH SCH ×6 (02:00→22:43)
[2020-09-13] MEDS: IPRATROPIUM INHALER (ATROVENT) 12.9 GM INH SCH ×6 (02:00→22:44)
[2020-09-13] MEDS: LABETALOL HCL 20 MG/4 ML VIAL IV PRN ×2 (03:29→08:09)
[2020-09-13 03:58] LABS: BASOPHILS % (AUTO) 0 % (0-10); EOSINOPHILS # (AUTO) 0.1 10^3/uL (0.0-0.3); EOSINOPHILS % (AUTO) 1 % (0-10); HEMATOCRIT 35 % (35-52); HEMOGLOBIN 10.7 g/dL (11.5-16.0); LYMPHOCYTES # (AUTO) 1.5 10^3/uL (1.0-4.0); LYMPHOCYTES % (AUTO) 16 % (12-44); MEAN CORPUSCULAR HEMOGLOBIN 30 pg (25-34); MEAN CORPUSCULAR HGB CONC 31 g/dL (32-36); MEAN CORPUSCULAR VOLUME 98 fL (80-99); MEAN PLATELET VOLUME 9.2 fL (9.0-12.2); MONOCYTES # (AUTO) 1.4 10^3/uL (0.0-1.0); MONOCYTES % (AUTO) 15 % (0-12); NEUTROPHILS # (AUTO) 6.4 10^3/uL (1.8-7.8); NEUTROPHILS % (AUTO) 67 % (42-75); PLATELET COUNT 353 10^3/uL (130-400); WHITE BLOOD COUNT 9.5 10^3/uL (4.3-11.0)
[2020-09-13 04:16] LABS: INR 3.3 (0.8-1.4); PROTHROMBIN TIME PATIENT 33.5 SEC (12.2-14.7)
[2020-09-13 04:18] LABS: POTASSIUM 4.3 MMOL/L (3.6-5.0)
[2020-09-13 04:19] LABS: CALCIUM 8.7 MG/DL (8.5-10.1)
[2020-09-13 04:23] LABS: CREATININE SERUM 1.29 MG/DL (0.60-1.30); PHOSPHORUS 2.8 MG/DL (2.3-4.7)
[2020-09-13] MEDS: hydrALAZINE (APRESOLINE) 25 MG TAB PO SCH ×3 (05:53→23:42)
[2020-09-13] MEDS: MEROPENEM 500 MG in WATER (STERILE) FOR INJECTION 10 ML IV SCH ×2 (06:01→13:37)
[2020-09-13] MEDS: PROPOFOL DRIP (ICU) 100 ML IV SCH (07:36)
[2020-09-13] MEDS: DOCUSATE SODIUM 100 MG (COLACE) CAP PO SCH ×2 (07:54→20:17)
[2020-09-13] MEDS: amLODIPine 10 MG (NORVASC) TAB PO SCH (07:55)
[2020-09-13] MEDS: SENNOSIDES 8.6 MG (SENOKOT) TAB PO SCH ×2 (07:55→20:17)
[2020-09-13] MEDS: meTOprolol TARTRATE 50 MG (LOPRESSOR) TAB PO SCH ×2 (07:55→20:17)
[2020-09-13] MEDS: LEVOTHYROXINE 75 MCG (LEVOTHROID) TABLET PO SCH (07:55)
[2020-09-13] MEDS: CARVEDILOL 12.5 MG (COREG) TABLET PO SCH ×2 (08:51→20:17)
[2020-09-13] MEDS ORDERED: hydrALAZINE (APESOLINE) 20 MG/ML VIAL IV ONE (09:00)
--- NOTE | 2020-09-13 09:40 | Diagnostic Imaging Report ---
INDICATION: Shortness of air COMPARISON STUDY: Chest from yesterday. FINDINGS: Portable view of the chest demonstrates interval extubation. Orogastric tube has been removed. Right arm PICC line and cardiac pacer remain. Cardiomegaly is stable. Bilateral pulmonary infiltrates, right greater than left, have improved. A small right pleural effusion is again identified. IMPRESSION: There has been interval extubation with improving pulmonary infiltrates. Cardiomegaly and a small right effusion are present. Dictated by: Dictated on workstation # [id number]
[2020-09-13] MEDS: niCARdipine IV 50 MG in NS (IVPB) 230 ML IV SCH ×3 (09:44→20:18)
--- NOTE | 2020-09-13 09:56 | Progress Note - Urology ---
Progress Note-Urology Progress Notes/Assess & Plan Progress/Assessment & Plan CREATININE CONTINUES IMPROVING WELL OUTPUT. MAY OBTAIN MRI ABDOMEN AND PELVIS TUESDAY JL BRYSON MD Sep 13, 2020 09:56
[2020-09-13] MEDS: LACTATED RINGERS 1,000 ML IV SCH ×2 (11:31→20:18)
--- NOTE | 2020-09-13 12:02 | Progress Note - Hospitalist ---
Subjective HPI/CC On Admission Date Seen by Provider: Sep 13, 2020 Time Seen by Provider: 09:15 Corina Baker is an 79-year-old female with past medical history of hypertension, atrial fibrillation on warfarin, hypothyroidism, who presented after having a fall at home. She reports that she has been having frequent falls recently. She uses a cane and a walker when she is at home. She denies any lightheadedness or dizziness. She has not been passing out. She denies any fevers or chills. She denies any shortness of breath or cough. She denies any chest pain. She denies any abdominal pain, nausea, or vomiting. She denies any diarrhea. She denies any dysuria. She has been urinating frequently. She denies any incontinence. Subjective/Events-last exam She is awake and responsive. She denies pain. She denies trouble breathing. She is still a bit slow to respond. Objective Exam Vital Signs Vital Signs Date Time Temp Pulse Resp B/P (MAP) Pulse Ox O2 Delivery O2 Flow Rate FiO2 09/13/20 11:27 37.0 09/13/20 11:06 91 Vapotherm 15.00 40 09/13/20 10:09 09/13/20 09:00 65 10 Capillary Refill : Less Than 3 Seconds General Appearance: No Apparent Distress, Obese Respiratory: Lungs Clear, Normal Breath Sounds, No Respiratory Distress Cardiovascular: Regular Rate, Rhythm, No Edema, No Murmur Gastrointestinal: Normal Bowel Sounds, Non Tender, Soft Extremity: Normal Inspection, Non Tender, No Pedal Edema Neurologic/Psychiatric: Alert, No Motor/Sensory Deficits Skin: Normal Color, Warm/Dry Results/Procedures Lab Laboratory Tests 09/13/20 03:45 Patient resulted labs reviewed. Imaging: Reviewed Imaging Report Assessment/Plan Assessment and Plan Assess & Plan/Chief Complaint Acute respiratory failure with hypoxia Pneumonia Pulmonology and TeleICU consulted Extubated 09/12 Currently on Vapotherm 15L and 30% Chest xray with dense right lung consolidation Continue Merrem Stop Precedex Acute kidney injury superimposed on chronic kidney disease Obstruction of right ureter Hydroureteronephrosis CT abdomen with right hydroureteronephrosis due to extrinsic compression, unclear if due to ovary, bowel, or mass Urology consulted, Dr. Zayas Cystoscopy with ureteral stent placement 2/3 Possible MRI Tuesday for further evaluation of urteral obstruction Essential HTN Restarting Cardene gtt Resume home antihypertensives when able to take by mouth AFib INR 3.3 Decrease Coumadin Hypothyroidism Continue levothyroxine DVT prophylaxis: supratherapeutic INR HTN emergency, resolved Acute HFpEF, resolved Diagnosis/Problems Diagnosis/Problems (1) Acute respiratory failure with hypoxia Status: Acute (2) Acute kidney injury superimposed on chronic kidney disease Status: Acute (3) Obstruction of right ureter Status: Acute (4) Hypertensive emergency Status: Resolved Resolution Date/Time: 09/12/20 @ 09:59 (5) Acute heart failure with preserved ejection fraction (HFpEF) Status: Acute (6) On Coumadin for atrial fibrillation Status: Chronic (7) Paroxysmal A-fib Status: Chronic (8) Hypothyroidism Status: Chronic (9) HTN (hypertension) Status: Chronic (10) Hydroureteronephrosis Status: Acute NOE MARQUEZ MD Sep 13, 2020 12:02
[2020-09-13] MEDS: warFARin 2 MG (COUMADIN) TAB PO SCH (17:24)
[2020-09-14] VITALS (24 sets, daily range): BP systolic 108–175; BP diastolic 54–76
[2020-09-14] MEDS: niCARdipine IV 50 MG in NS (IVPB) 230 ML IV SCH ×6 (00:21→20:58)
[2020-09-14] MEDS: MEROPENEM 500 MG in WATER (STERILE) FOR INJECTION 10 ML IV SCH ×4 (00:22→23:33)
[2020-09-14 02:41] LABS: BASOPHILS % (AUTO) 0 % (0-10); EOSINOPHILS # (AUTO) 0.3 10^3/uL (0.0-0.3); EOSINOPHILS % (AUTO) 3 % (0-10); HEMATOCRIT 35 % (35-52); HEMOGLOBIN 10.9 g/dL (11.5-16.0); LYMPHOCYTES # (AUTO) 1.3 10^3/uL (1.0-4.0); LYMPHOCYTES % (AUTO) 11 % (12-44); MEAN CORPUSCULAR HEMOGLOBIN 30 pg (25-34); MEAN CORPUSCULAR HGB CONC 31 g/dL (32-36); MEAN CORPUSCULAR VOLUME 97 fL (80-99); MEAN PLATELET VOLUME 9.1 fL (9.0-12.2); MONOCYTES # (AUTO) 1.4 10^3/uL (0.0-1.0); MONOCYTES % (AUTO) 12 % (0-12); NEUTROPHILS # (AUTO) 8.6 10^3/uL (1.8-7.8); NEUTROPHILS % (AUTO) 74 % (42-75); PLATELET COUNT 371 10^3/uL (130-400); WHITE BLOOD COUNT 11.7 10^3/uL (4.3-11.0)
[2020-09-14 02:46] LABS: ABG BASE EXCESS 4.3 MMOL/L (-2.5-2.5); ABG OXYGEN SATURATION 97 % (94-100); ABG PCO2 45 MMHG (35-45); ABG PH 7.42 (7.37-7.43); ABG PO2 79 MMHG (79-93)
[2020-09-14 02:47] LABS: ALLENS TEST YES-POS; INSPIRED O2 45%; VENTILATOR NO
[2020-09-14 02:53] LABS: CHLORIDE 104 MMOL/L (98-107)
[2020-09-14 02:54] LABS: POTASSIUM 3.9 MMOL/L (3.6-5.0); SODIUM 142 MMOL/L (135-145)
[2020-09-14 02:55] LABS: CALCIUM 8.3 MG/DL (8.5-10.1); GLUCOSE 106 MG/DL (70-105); INR 3.8 (0.8-1.4); PROTHROMBIN TIME PATIENT 37.5 SEC (12.2-14.7)
[2020-09-14 02:57] LABS: CARBON DIOXIDE 27 MMOL/L (21-32)
[2020-09-14 02:59] LABS: GFR ESTIMATED > 60
[2020-09-14 03:00] LABS: BUN/CREATININE RATIO 35
[2020-09-14 03:01] LABS: MAGNESIUM 1.7 MG/DL (1.6-2.4)
[2020-09-14] MEDS: RT-ALBUTEROL INHALER HFA (VENTOLIN HFA) 18 GM IH SCH ×6 (03:11→23:09)
[2020-09-14] MEDS: IPRATROPIUM INHALER (ATROVENT) 12.9 GM INH SCH ×6 (03:12→23:07)
[2020-09-14] MEDS: POTASSIUM CL 10MEQ/50ML IVPB 50 ML IV SCH (03:14)
[2020-09-14] MEDS: KCL 20 MEQ TAB (K-DUR) PO SCH (03:15)
[2020-09-14] MEDS: MAGNESIUM 1 GM/100 ML IVPB 100 ML IV SCH ×3 (03:15→06:35)
[2020-09-14] MEDS: hydrALAZINE (APRESOLINE) 25 MG TAB PO SCH ×3 (05:18→23:32)
[2020-09-14] MEDS: LEVOTHYROXINE 75 MCG (LEVOTHROID) TABLET PO SCH (08:24)
[2020-09-14] MEDS: DOCUSATE SODIUM 100 MG (COLACE) CAP PO SCH ×2 (08:24→19:45)
[2020-09-14] MEDS: meTOprolol TARTRATE 50 MG (LOPRESSOR) TAB PO SCH ×2 (08:24→19:45)
[2020-09-14] MEDS: SENNOSIDES 8.6 MG (SENOKOT) TAB PO SCH ×2 (08:24→19:45)
[2020-09-14] MEDS: CARVEDILOL 12.5 MG (COREG) TABLET PO SCH ×2 (08:24→19:45)
--- NOTE | 2020-09-14 09:31 | Diagnostic Imaging Report ---
CHEST 1 VIEW, AP/PA ONLY Indication: Shortness of breath Comparison: 09/13/2020 Findings: Improving but persistent right basilar and perihilar opacities. Stable small bilateral pleural effusions. No pneumothorax. Stable right PICC. Stable cardiomegaly status post TAVR. Left pectoral dual-chamber pacemaker is in stable position. Impression: 1. Improving but persistent right-sided pulmonary opacities may be on the basis of edema and/or atelectasis. 2. Stable small left pleural effusion. Dictated by: Dictated on workstation # [id number]
--- NOTE | 2020-09-14 09:50 | Progress Note - Urology ---
Progress Note-Urology Progress Notes/Assess & Plan Progress/Assessment & Plan CREATININE NORMAL AT 0.8 Final Diagnosis RT URETERAL OBSTRUCTION JL BRYSON MD Sep 14, 2020 09:50
[2020-09-14] MEDS ORDERED: FUROSEMIDE 40 MG/4 ML INJ (LASIX) IVP ONE (11:00)
--- NOTE | 2020-09-14 11:08 | Progress Note - Hospitalist ---
Subjective HPI/CC On Admission Date Seen by Provider: Sep 14, 2020 Time Seen by Provider: 09:40 Corina Baker is an 79-year-old female with past medical history of hypertension, atrial fibrillation on warfarin, hypothyroidism, who presented after having a fall at home. She reports that she has been having frequent falls recently. She uses a cane and a walker when she is at home. She denies any lightheadedness or dizziness. She has not been passing out. She denies any fevers or chills. She denies any shortness of breath or cough. She denies any chest pain. She denies any abdominal pain, nausea, or vomiting. She denies any diarrhea. She denies any dysuria. She has been urinating frequently. She denies any incontinence. Subjective/Events-last exam She is feeling better today. Her memory is improving but she is unsure why she is in the hospital. She denies shortness of breath. She denies pain. She says she is hungry. Objective Exam Vital Signs Vital Signs Date Time Temp Pulse Resp B/P (MAP) Pulse Ox O2 Delivery O2 Flow Rate FiO2 09/14/20 10:31 88 Vapotherm 20.00 40 09/14/20 10:00 61 11 136/58 (84) 09/13/20 11:27 37.0 Capillary Refill : Less Than 3 Seconds General Appearance: No Apparent Distress, WD/WN Respiratory: Lungs Clear, Normal Breath Sounds, No Respiratory Distress Cardiovascular: Regular Rate, Rhythm, Systolic Murmur Gastrointestinal: Normal Bowel Sounds, Non Tender, Soft Extremity: Normal Inspection, Non Tender Neurologic/Psychiatric: Alert, No Motor/Sensory Deficits, Normal Mood/Affect Skin: Normal Color, Warm/Dry Results/Procedures Lab Laboratory Tests 09/14/20 02:35 Patient resulted labs reviewed. Imaging: Reviewed Imaging Report Assessment/Plan Assessment and Plan Assess & Plan/Chief Complaint Acute respiratory failure with hypoxia Pneumonia HFpEF Pulmonology and TeleICU consulted Extubated 2 Currently on Vapotherm 20L and 40% Chest xray with dense right lung consolidation Continue Merrem Add Lasix Obstruction of right ureter Hydroureteronephrosis CT abdomen with right hydroureteronephrosis due to extrinsic compression, unclear if due to ovary, bowel, or mass Urology consulted, Dr. Zayas Cystoscopy with ureteral stent placement 2/3 Pelvic MRI tomorrow Essential HTN Continue antihypertensives AFib INR 3.8 Hold Coumadin Hypothyroidism Continue levothyroxine DVT prophylaxis: supratherapeutic INR HTN emergency, resolved Acute HFpEF, resolved Acute kidney injury superimposed on chronic kidney disease, resolved Diagnosis/Problems Diagnosis/Problems (1) Acute respiratory failure with hypoxia Status: Acute (2) Acute kidney injury superimposed on chronic kidney disease Status: Acute (3) Obstruction of right ureter Status: Acute (4) Hypertensive emergency Status: Resolved Resolution Date/Time: 09/12/20 @ 09:59 (5) Acute heart failure with preserved ejection fraction (HFpEF) Status: Acute (6) On Coumadin for atrial fibrillation Status: Chronic (7) Paroxysmal A-fib Status: Chronic (8) Hypothyroidism Status: Chronic (9) HTN (hypertension) Status: Chronic (10) Hydroureteronephrosis Status: Acute NOE MARQUEZ MD Sep 14, 2020 11:08
[2020-09-14] MEDS ORDERED: FUROSEMIDE 40 MG/4 ML INJ (LASIX) ONE (13:59)
[2020-09-14] MEDS: MELATONIN 3 MG TABLET PO PRN (20:33)
[2020-09-14] MEDS: RT-ALBUTEROL INHALER HFA (VENTOLIN HFA) 18 GM IH PRN (23:08)
[2020-09-15] VITALS (24 sets, daily range): BP systolic 122–169; BP diastolic 50–74
[2020-09-15 02:31] LABS: BASOPHILS % (AUTO) 0 % (0-10); EOSINOPHILS # (AUTO) 0.5 10^3/uL (0.0-0.3); EOSINOPHILS % (AUTO) 4 % (0-10); HEMATOCRIT 33 % (35-52); HEMOGLOBIN 10.2 g/dL (11.5-16.0); LYMPHOCYTES # (AUTO) 1.4 10^3/uL (1.0-4.0); LYMPHOCYTES % (AUTO) 12 % (12-44); MEAN CORPUSCULAR HEMOGLOBIN 30 pg (25-34); MEAN CORPUSCULAR HGB CONC 31 g/dL (32-36); MEAN CORPUSCULAR VOLUME 97 fL (80-99); MEAN PLATELET VOLUME 9.2 fL (9.0-12.2); MONOCYTES # (AUTO) 1.3 10^3/uL (0.0-1.0); MONOCYTES % (AUTO) 11 % (0-12); NEUTROPHILS # (AUTO) 8.5 10^3/uL (1.8-7.8); NEUTROPHILS % (AUTO) 72 % (42-75); PLATELET COUNT 353 10^3/uL (130-400); WHITE BLOOD COUNT 11.7 10^3/uL (4.3-11.0)
[2020-09-15 02:43] LABS: CHLORIDE 104 MMOL/L (98-107); INR 4.6 (0.8-1.4); POTASSIUM 3.7 MMOL/L (3.6-5.0); PROTHROMBIN TIME PATIENT 43.3 SEC (12.2-14.7); SODIUM 143 MMOL/L (135-145)
[2020-09-15 02:44] LABS: CALCIUM 8.2 MG/DL (8.5-10.1)
[2020-09-15 02:45] LABS: GLUCOSE 115 MG/DL (70-105)
[2020-09-15] MEDS: IPRATROPIUM INHALER (ATROVENT) 12.9 GM INH SCH ×6 (02:45→21:24)
[2020-09-15] MEDS: RT-ALBUTEROL INHALER HFA (VENTOLIN HFA) 18 GM IH PRN ×2 (02:45→02:46)
[2020-09-15 02:46] LABS: CARBON DIOXIDE 30 MMOL/L (21-32)
[2020-09-15] MEDS: RT-ALBUTEROL INHALER HFA (VENTOLIN HFA) 18 GM IH SCH ×6 (02:46→21:24)
[2020-09-15 02:49] LABS: CREATININE SERUM 0.79 MG/DL (0.60-1.30); GFR ESTIMATED > 60; PHOSPHORUS 2.1 MG/DL (2.3-4.7)
[2020-09-15 02:50] LABS: BUN/CREATININE RATIO 34
[2020-09-15 02:51] LABS: MAGNESIUM 1.9 MG/DL (1.6-2.4)
--- NOTE | 2020-09-15 03:39 | Pulmonary Progress Note ---
BARNEY COWAN MED STUDENT 09/15/20 0339: Subjective Date Seen by a Provider: Sep 15, 2020 Time Seen by a Provider: 03:36 Subjective/Events-last exam Pt is sedated on vent. Sepsis Event Evaluation Height, Weight, BMI Height: 5'9.00" Weight: 171lbs. 9.0oz. 77.411837uq; 26.12 BMI Method:Stated Exam Exam Vital Signs Date Time Temp Pulse Resp B/P (MAP) Pulse Ox O2 Delivery O2 Flow Rate FiO2 09/15/20 02:47 94 Vapotherm 20.00 40 09/14/20 23:10 93 Vapotherm 20.00 40 09/14/20 23:00 60 12 108/57 (74) 93 Vapotherm 20.00 50.00 09/14/20 22:00 60 12 123/57 (79) 93 Vapotherm 20.00 50.00 09/14/20 21:00 60 13 135/66 (89) 93 Vapotherm 20.00 50.00 09/14/20 20:26 94 Vapotherm 20.00 40 09/14/20 20:00 61 19 135/54 (81) 93 Vapotherm 20.00 50.00 09/14/20 20:00 96 Vapotherm 20.00 40 09/14/20 19:45 36.4 09/14/20 19:00 93 Vapotherm 20.00 50.00 09/14/20 19:00 61 09/14/20 19:00 61 21 153/66 (95) 94 Vapotherm 20.00 50.00 09/14/20 18:00 60 20 135/63 (87) 92 NIV Bilevel 30.00 09/14/20 17:00 61 14 118/59 (78) 92 NIV Bilevel 30.00 09/14/20 16:00 60 24 150/57 (88) 94 NIV Bilevel 30.00 09/14/20 15:34 36.7 09/14/20 15:05 94 Vapotherm 20.00 40 09/14/20 15:00 60 14 141/62 (88) 96 NIV Bilevel 30.00 09/14/20 14:00 60 14 131/63 (85) 94 NIV Bilevel 30.00 09/14/20 13:00 60 09/14/20 13:00 60 15 135/56 (82) NIV Bilevel 30.00 09/14/20 12:00 61 17 140/74 (96) 95 NIV Bilevel 30.00 09/14/20 11:00 60 13 142/58 (86) 94 NIV Bilevel 30.00 09/14/20 10:31 88 Vapotherm 20.00 40 09/14/20 10:00 61 11 136/58 (84) NIV Bilevel 30.00 09/14/20 09:00 67 11 144/58 (86) 91 NIV Bilevel 30.00 09/14/20 08:00 75 17 141/66 (91) 92 NIV Bilevel 30.00 09/14/20 08:00 96 Vapotherm 20.00 40 09/14/20 07:04 92 Vapotherm 20.00 40 09/14/20 07:00 72 09/14/20 07:00 75 16 137/57 (83) 91 NIV Bilevel 30.00 09/14/20 06:00 68 16 147/61 (89) 92 NIV Bilevel 30.00 09/14/20 05:00 65 14 148/62 (90) 93 NIV Bilevel 30.00 09/14/20 04:00 66 14 175/71 (105) 93 NIV Bilevel 30.00 I & O 09/15/20 07:00 Intake Total 450 ml Output Total 1790 ml Balance -1340 ml Height & Weight Height: 5'9.00" Weight: 171lbs. 9.0oz. 77.462311mq; 26.12 BMI Method:Stated General Appearance: No Apparent Distress, WD/WN HEENT: PERRL/EOMI, Pharynx Normal Neck: Normal Inspection, Supple Respiratory: Lungs Clear, Normal Breath Sounds, No Respiratory Distress Cardiovascular: Regular Rate, Rhythm, Systolic Murmur Capillary Refill: Less Than 3 Seconds Extremity: Normal Inspection, Non Tender Neurologic/Psychiatric: Alert, No Motor/Sensory Deficits, Normal Mood/Affect Skin: Normal Color, Warm/Dry Results Lab Laboratory Tests 09/13/20 03:45 09/14/20 02:35 09/15/20 02:20 ZHANG HERCULES DO 09/15/20 0501: Assessment/Plan Assessment/Plan Acute respiratory failure -- Worsening -Vapotherm currently at 40% -COVID is negative ` -D/C Isolation -CXR and labs reviewed -IVF LR 30ml/hr Pneumonia L>R -Merrem -Schneider cultures -MRSA swab is negative -Influenza is negative HTN -Currently on Cardene gtt -PO BP meds Right ureteral Obstruction s/p surgery -Urology is following Acute on chronic renal failure AFib HX -Coumadin therapy -INR is 2 today. Hypothyroidism Continue levothyroxine BARNEY COWAN MED STUDENT Sep 15, 2020 03:39 ZHANG HERCULES DO Sep 15, 2020 05:01
[2020-09-15] MEDS: POTASSIUM CL 10MEQ/50ML IVPB 50 ML IV SCH (04:45)
[2020-09-15] MEDS: KCL 20 MEQ TAB (K-DUR) PO SCH (04:45)
[2020-09-15] MEDS: MAGNESIUM 1 GM/100 ML IVPB 100 ML IV SCH (04:45)
[2020-09-15] MEDS: hydrALAZINE (APRESOLINE) 25 MG TAB PO SCH ×3 (06:21→21:07)
--- NOTE | 2020-09-15 07:28 | Diagnostic Imaging Report ---
INDICATION: Dyspnea. COMPARISON: 09/14/2020 FINDINGS: Single frontal radiograph view of the chest was obtained and again demonstrates mild cardiomegaly. Pulmonary vasculature is within normal limits. Right upper extremity PICC line is seen with tip terminating in the SVC. Left-sided dual-lead pacemaker and postsurgical changes previous aortic valve repair are also noted. There is obscuration of left hemidiaphragm suspected to be on the basis of small left effusion. There may be trace effusion on the right as well. Lungs are otherwise clear. There is no pneumothorax on either side. Osseous structures show no acute adverse interval change. IMPRESSION: 1. Probable small bibasilar effusions, left greater than right. 2. Cardiomegaly. Dictated by: Dictated on workstation # [id number]
[2020-09-15] MEDS ORDERED: SODIUM PHOSPHATE INJ 30 MM in NS (IVPB) 250 ML INJ ONE (08:00)
--- NOTE | 2020-09-15 08:03 | Progress Note - Hospitalist ---
Subjective HPI/CC On Admission Date Seen by Provider: Sep 15, 2020 Time Seen by Provider: 07:57 Corina Baker is an 79-year-old female with past medical history of hypertension, atrial fibrillation on warfarin, hypothyroidism, who presented after having a fall at home. She reports that she has been having frequent falls recently. She uses a cane and a walker when she is at home. She denies any lightheadedness or dizziness. She has not been passing out. She denies any fevers or chills. She denies any shortness of breath or cough. She denies any chest pain. She denies any abdominal pain, nausea, or vomiting. She denies any diarrhea. She denies any dysuria. She has been urinating frequently. She denies any incontinence. Subjective/Events-last exam Pt reports feeling ok today. Cannot remember why she is here and what procedure she had done but when reminded recalls it happening. Her only other complaint is that she is hungry. Objective Exam Vital Signs Vital Signs Date Time Temp Pulse Resp B/P (MAP) Pulse Ox O2 Delivery O2 Flow Rate FiO2 09/15/20 07:54 20.00 35.00 09/15/20 06:00 60 10 137/50 (79) 94 Vapotherm 09/15/20 02:47 40 09/14/20 19:45 36.4 Capillary Refill : Less Than 3 Seconds General Appearance: No Apparent Distress, WD/WN Respiratory: Lungs Clear, No Accessory Muscle Use, Other (on Vapotherm) Cardiovascular: Regular Rate, Rhythm, Systolic Murmur Gastrointestinal: Normal Bowel Sounds, Non Tender, Soft Results/Procedures Lab Laboratory Tests 09/15/20 02:20 Patient resulted labs reviewed. Imaging: Reviewed Imaging Report Assessment/Plan Assessment and Plan Assess & Plan/Chief Complaint Acute respiratory failure with hypoxia Pneumonia HFpEF Pulmonology and TeleICU consulted Extubated 2/ Currently on Vapotherm, improved from BiPAP yesterday Chest xray with dense right lung consolidation Complete course of Merrem Obstruction of right ureter Hydroureteronephrosis CT abdomen with right hydroureteronephrosis due to extrinsic compression, unclear if due to ovary, bowel, or mass Urology consulted, Dr. Zayas Cystoscopy with ureteral stent placement 2/3 Pelvic MRI today Essential HTN Continue antihypertensives DC Cardene gtt as BP well controlled AFib Compensated systolic HF s/p aortic valve replacement INR up again today to 4.6 Hold Coumadin Trend INR Hypothyroidism Continue levothyroxine DVT prophylaxis: supratherapeutic INR HTN emergency, resolved Acute kidney injury superimposed on chronic kidney disease, resolved LEONEL TUTTLE MD Sep 15, 2020 08:03
[2020-09-15] MEDS: meTOprolol TARTRATE 50 MG (LOPRESSOR) TAB PO SCH ×2 (09:49→19:54)
[2020-09-15] MEDS: DOCUSATE SODIUM 100 MG (COLACE) CAP PO SCH ×2 (09:49→19:55)
[2020-09-15] MEDS: LEVOTHYROXINE 75 MCG (LEVOTHROID) TABLET PO SCH (09:49)
[2020-09-15] MEDS: SENNOSIDES 8.6 MG (SENOKOT) TAB PO SCH ×2 (09:49→19:55)
[2020-09-15] MEDS: CARVEDILOL 12.5 MG (COREG) TABLET PO SCH ×2 (09:49→19:55)
--- NOTE | 2020-09-15 13:43 | Physical Therapy Evaluation ---
PT Evaluation-General Medical Diagnosis Admission Date Sep 08, 2020 at 13:50 Medical Diagnosis: uti/obstructive uropathy Onset Date: Sep 08, 2020 Therapy Diagnosis Therapy Diagnosis: generalized weakness/debility Height/Weight Height (Feet): 5 Height (Inches): 9.00 Weight (Pounds): 171 Weight (Ounces): 9.0 Precautions Precautions/Isolations: Fall Prevention, Standard Precautions Weight Bear Status Right Lower Extremity: Right Weight Bearing/Tolerated Left Lower Extremity: Left Weight Bearing/Tolerated Referral Physician: Tayo Reason for Referral: Evaluation/Treatment Medical History Pertinent Medical History: Atrial Fib, HTN Additional Medical History pacemaker Current History EMS secondary to multiple falls secondary to dizziness Reviewed History: Yes Social History Home: Single Level Current Living Status: Alone Entry Into Home: Stairs With Railing PT Steps Into Home: 3 Prior Prior Level of Function SCALE: Activities may be completed with or without assistive devices. 9-Cqzysuthws-asadcbw completes the activity by him/herself with no assistance from a helper. 5-Set-up or Clean-up Assistance-helper sets up or cleans up; patient completes activity. [place] assists only prior to or following the activity. 4-Supervision or Touching Assistance-helper provides verbal cues and/or touching/steadying and/or contact guard assistance as patient completes activity. Assistance may be provided throughout the activity or intermittently. 3-Partial/Moderate Assistance-helper does LESS THAN HALF the effort. [place] lifts, holds or supports trunk or limbs, but provides less than half the effort. 2-Substantial/Maximal Assistance-helper does MORE THAN HALF the effort. [place] lifts or holds trunk or limbs and provides more than half the effort. 1-Redzxslxa-tjxrcd does ALL the effort. Patient does none of the effort to complete the activity. Or, the assistance of 2 or more helpers is required for the patient to complete the activity. If activity was not attempted, code reason: 7-Patient Refused. 9-Not Applicable-not attempted and the patient did not perform the activity before the current illness, exacerbation or injury. 10-Not Attempted due to Environmental Limitations-(lack of equipment, weather restraints, etc.). 88-Not Attempted due to Medical Conditions or Safety Concerns. Bed Mobility: 6 Transfers (B,C,W/C): 6 Gait: 6 Stairs: 6 Indoor Mobility (Ambulation): Independent Stairs: Independent Prior Devices Use: Walker PT Evaluation-Current Subjective Patient agrees to PT. Objective Patient Orientation: Person Attachments: SCD's, Oxygen, Miles Catheter, IV ROM/Strength ROM Lower Extremities bilateral LE WFL Strength Lower Extremities 2+/5 grossly bilateral LE Integumentary/Posture Integumentary refer to nursing notes Bladder Incontinence: Miles Cath Posture WFL Neuromuscular (Tone, Coordination, Reflexes) grossly intact Sensory Vision: Wears Glasses Hearing: Impaired Transfers Roll Left to Right (QC): 1 Sit to Lying (QC): 1 Lying to Sitting/Side of Bed(Q: 1 Sit to Stand (QC): 88 Chair/Lmd-qd-Oirze Xfer(QC): 88 Gait Does the Patient Walk?: No and Walking Goal IS indicated Walk 10 feet (QC): 88 Balance Sitting Static: Fair Sitting Dynamic: Fair Picking up an Object (QC): 88 Treatment Patient sat EOB x 10 min with CGA. Patient requires dependent assist of 2 to attain sit to supine. Assessment/Needs 79 y.o. female, will benefit from skilled PT to address functional strength and mobility to improve current LOF. Patient is limited due to severe weakness/debility. Rehab Potential: Fair PT Short Term Goals Short Term Goals Time Frame: Oct 01, 2020 Roll Left & Right: 3 Sit to lyin Lying to sitting on side of be: 3 Sit to stand: 3 Chair/oqb-lx-nzmix transfer: 3 Toilet transfer: 3 Walk 10 feet: 3 Walk 50 feet with two turns: 3 PT Farm Equipment Engine Mechanic Goals Farm Equipment Engine Mechanic Goals PT Farm Equipment Engine Mechanic Goals Time Frame: Oct 18, 2020 Roll Left & Right (QC): 5 Sit to Lying (QC): 5 Lying-Sitting on Side/Bed(QC): 5 Sit to Stand (QC): 5 Chair/Xfa-mv-Kymwb Xfer(QC): 5 Toilet Transfer (QC): 5 Does the Patient Walk: Yes Walk 10 feet (QC): 5 Walk 50ft with 2 Turns (QC): 5 Walk 150 ft (QC): 5 1 Step (curb) (QC): 5 4 Steps (QC): 4 PT Plan Problem List Problem List: Activity Tolerance, Functional Strength, Safety, Balance, Transfer, Bed Mobility Treatment/Plan Treatment Plan: Continue Plan of Care Treatment Plan: Bed Mobility, Education, Functional Activity Gilda, Functional Strength, Gait, Safety, Therapeutic Exercise, Transfers Treatment Duration: Oct 18, 2020 Frequency: 6 times per week Estimated Hrs Per Day: .5 hour per day Patient and/or Family Agrees t: Yes Time/GCodes Time In: 1300 Time Out: 1332 Total Billed Treatment Time: 32 Total Billed Treatment 1 visit EVModC 18 min FA 14 min TOVA MONTERO PT Sep 15, 2020 13:42
--- NOTE | 2020-09-15 14:34 | Occupational Therapy Eval ---
OT Evaluation-General/PLF Medical Diagnosis Admission Date Sep 08, 2020 at 13:50 Medical Diagnosis: uti/obstructive uropathy Onset Date: Sep 08, 2020 Therapy Diagnosis Therapy Diagnosis: decreased ADL status, weakness Height/Weight Height (Feet): 5 Height (Inches): 9.00 Weight (Pounds): 171 Weight (Ounces): 9.0 Precautions Precautions/Isolations: Fall Prevention, Standard Precautions Referral Physician: Tayo Referral Reason: Evaluation/Treatment Medical History Pertinent Medical History: Atrial Fib, HTN Additional Medical History hypothyfroidism, coronary stent, pacemaker, bilateral hearing aides. Current History presented after fall at home. Social History Home: Single Level Current Living Status: Alone Entry Into Home: Stairs With Railing Steps Into Home: 3 ADL-Prior Level of Function SCALE: Activities may be completed with or without assistive devices. 7-Grjeghrtme-ivcyzlf completes the activity by him/herself with no assistance from a helper. 5-Set-up or Clean-up Assistance-helper sets up or cleans up; patient completes activity. [place] assists only prior to or following the activity. 4-Supervision or Touching Assistance-helper provides verbal cues and/or touching/steadying and/or contact guard assistance as patient completes activity. Assistance may be provided throughout the activity or intermittently. 3-Partial/Moderate Assistance-helper does LESS THAN HALF the effort. [place] lifts, holds or supports trunk or limbs, but provides less than half the effort. 2-Substantial/Maximal Assistance-helper does MORE THAN HALF the effort. [place] lifts or holds trunk or limbs and provides more than half the effort. 5-Cxnxjvibc-zyywwr does ALL the effort. Patient does none of the effort to complete the activity. Or, the assistance of 2 or more helpers is required for the patient to complete the activity. If activity was not attempted, code reason: 7-Patient Refused. 9-Not Applicable-not attempted and the patient did not perform the activity before the current illness, exacerbation or injury. 10-Not Attempted due to Environmental Limitations-(lack of equipment, weather restraints, etc.). 88-Not Attempted due to Medical Conditions or Safety Concerns. ADL PLOF Comments Pt reports being independent with ADLS at PLOF and independent with functional mobility using FWW/cane. Pt indicates she has a tub/shower and a walk in shower, primarily using walk in shower. OT asked pt if she had a shower chair or a place to sit in the shower, she indicates yes but unsure. Self Care: Independent Functional Cognition: Independent DME/Equipment: Shower, Tub/Shower OT Current Status Subjective Pt laying in bed, agreeable to OT evaluation and tx. Mental Status/Objective Patient Orientation: Person Attachments: Oxygen Current Glasses/Contacts: Yes Hearing Aids: Yes Hand Dominance: Right Upper Extremity ROM WFL, RUE shoulder flexion to approx 140 degrees, LUE shoulder flexion to approx 150 degrees. Pt indicates less ROM in RUE due to past accident. Upper Extremity Sensation WFL Upper Extremity Strength grossly 3/5 Other Treatments Pt laying in bed, OT educated pt on purpose and benefit of OT, she verbalized understanding. Pt provided information about PLOF and home set up, and participated in UE screen. Pt indicates she feels weaker since being in the hospital. OT educated pt on purpose and benefits of exercise, pt completed x10 reps BUE shoulder flexion, and x5 reps elbow flexion/extension. OT instructed pt to complete 10 reps elbow flex/ext but pt stopped at 5 stating she was too tired to continue. OT instructed pt to complete exercises throughout the day/evening to increase strength and activity tolerance, she verbalized understanding. Post tx, pt laying in bed, call light in reach and all needs met. Education OT Patient Education: Exercise program, Modified ADL techniques, Progress toward Goal/Update tx plan, Purpose of tx/functional activities, Rehab process Teaching Recipient: Patient Teaching Methods: Discussion Response to Teaching: Verbalize Understanding, Reinforcement Needed OT Short Term Goals Short Term Goals Time Frame: Sep 26, 2020 Eatin Oral hygiene: 5 Toileting hygiene: 2 Shower/bathe self: 3 Upper body dressin Lower body dressin OT Store Assistant Goals Store Assistant Goals Time Frame: Oct 10, 2020 Eating (QC): 6 Oral Hygiene (QC): 6 Toileting Hygiene (QC): 4 Shower/Bathe Self (QC): 4 Upper Body Dressing (QC): 5 Lower Body Dressing (QC): 4 On/Off Footwear (QC): 4 Additional Goals: 1-Demonstrate ADL Tasks, 2-Verbalize Understanding, 3-Improv eStrength/Gilda 1=Demonstrate adherence to instructed precautions during ADL tasks. 2=Patient will verbalize/demonstrate understanding of assistive devices/modifications for ADL. 3=Patient will improve strength/tolerance for activity to enable patient to p erform ADL's. OT Education/Plan Problem List/Assessment Assessment: Decreased Activ Tolerance, Decreased UE Strength, Impaired Funct Balance, Impaired I ADL's, Impaired Self-Care Skills Discharge Recommendations Plan/Recommendations: Continue POC Therapy Discharge Recommendati: Post Acute OT Treatment Plan/Plan of Care Patient would benefit from OT for education, treatment and training to promote independence in ADL's, mobility, safety and/or upper extremity function for ADL's. Plan of Care: ADL Retraining, Functional Mobility, UE Funct Exercise/Act Treatment Duration: Oct 10, 2020 Frequency: 5 times per week Estimated Hrs Per Day: .25 hour per day Rehab Potential: Fair Time/GCodes Start Time: 14:00 Stop Time: 14:10 Total Time Billed (hr/min): 10 Billed Treatment Time 1, DOUG CHANDLER OT Sep 15, 2020 14:34
[2020-09-15] MEDS: warFARin 2 MG (COUMADIN) TAB PO SCH (18:27)
[2020-09-16] VITALS (13 sets, daily range): BP systolic 144–217; BP diastolic 56–88
[2020-09-16] MEDS: RT-ALBUTEROL INHALER HFA (VENTOLIN HFA) 18 GM IH SCH ×6 (01:16→21:42)
[2020-09-16] MEDS: IPRATROPIUM INHALER (ATROVENT) 12.9 GM INH SCH ×6 (01:17→21:42)
[2020-09-16 02:13] LABS: BASOPHILS % (AUTO) 0 % (0-10); EOSINOPHILS # (AUTO) 0.4 10^3/uL (0.0-0.3); EOSINOPHILS % (AUTO) 4 % (0-10); HEMATOCRIT 31 % (35-52); HEMOGLOBIN 9.6 g/dL (11.5-16.0); LYMPHOCYTES # (AUTO) 1.6 10^3/uL (1.0-4.0); LYMPHOCYTES % (AUTO) 17 % (12-44); MEAN CORPUSCULAR HEMOGLOBIN 30 pg (25-34); MEAN CORPUSCULAR HGB CONC 31 g/dL (32-36); MEAN CORPUSCULAR VOLUME 98 fL (80-99); MEAN PLATELET VOLUME 9.2 fL (9.0-12.2); MONOCYTES # (AUTO) 1.1 10^3/uL (0.0-1.0); MONOCYTES % (AUTO) 11 % (0-12); NEUTROPHILS # (AUTO) 6.5 10^3/uL (1.8-7.8); NEUTROPHILS % (AUTO) 67 % (42-75); PLATELET COUNT 320 10^3/uL (130-400); WHITE BLOOD COUNT 9.7 10^3/uL (4.3-11.0)
[2020-09-16 02:24] LABS: CHLORIDE 106 MMOL/L (98-107); POTASSIUM 3.5 MMOL/L (3.6-5.0); SODIUM 144 MMOL/L (135-145)
[2020-09-16 02:25] LABS: CALCIUM 7.9 MG/DL (8.5-10.1)
[2020-09-16 02:26] LABS: GLUCOSE 85 MG/DL (70-105)
[2020-09-16 02:27] LABS: INR 2.7 (0.8-1.4)
[2020-09-16 02:28] LABS: CARBON DIOXIDE 31 MMOL/L (21-32)
[2020-09-16 02:30] LABS: CREATININE SERUM 0.72 MG/DL (0.60-1.30); GFR ESTIMATED > 60; PHOSPHORUS 2.6 MG/DL (2.3-4.7)
[2020-09-16 02:31] LABS: BUN/CREATININE RATIO 31
[2020-09-16 02:33] LABS: MAGNESIUM 1.8 MG/DL (1.6-2.4)
[2020-09-16] MEDS: POTASSIUM CL 10MEQ/50ML IVPB 50 ML IV SCH (02:42)
[2020-09-16] MEDS: MAGNESIUM 1 GM/100 ML IVPB 100 ML IV SCH (02:42)
[2020-09-16] MEDS: KCL 20 MEQ TAB (K-DUR) PO SCH (02:43)
--- NOTE | 2020-09-16 03:15 | Pulmonary Progress Note ---
BARNEY COWAN MED STUDENT 09/16/20 0315: Subjective Date Seen by a Provider: Sep 16, 2020 Time Seen by a Provider: 03:10 Subjective/Events-last exam Pt is resting in bed. Pt denies headache. Pt states she has no concerns and would like to go home. Sepsis Event Evaluation Height, Weight, BMI Height: 5'9.00" Weight: 171lbs. 9.0oz. 77.206393oi; 26.12 BMI Method:Stated Exam Exam Vital Signs Date Time Temp Pulse Resp B/P (MAP) Pulse Ox O2 Delivery O2 Flow Rate FiO2 09/16/20 02:00 60 14 173/74 (107) 95 High Flow N/C 3.00 09/16/20 01:17 96 High Flow N/C 3.00 09/16/20 01:00 60 09/16/20 01:00 60 14 154/65 (94) 96 High Flow N/C 3.00 09/16/20 00:00 60 12 144/56 (85) 95 High Flow N/C 3.00 09/15/20 23:31 36.6 09/15/20 23:00 60 14 152/59 (90) 94 High Flow N/C 3.00 09/15/20 22:00 60 16 151/55 (87) 94 High Flow N/C 3.00 09/15/20 21:25 94 High Flow N/C 3.00 09/15/20 21:00 60 16 151/56 (87) 96 High Flow N/C 3.00 09/15/20 20:00 98 High Flow N/C 3.00 09/15/20 20:00 61 27 158/63 (94) 97 High Flow N/C 3.00 09/15/20 19:56 High Flow N/C 3.00 09/15/20 19:34 36.4 09/15/20 19:00 60 09/15/20 19:00 60 17 162/62 (95) 96 High Flow N/C 3.00 09/15/20 18:34 96 High Flow N/C 3.00 09/15/20 18:00 60 20 169/63 (98) 95 High Flow N/C 3.00 09/15/20 17:00 62 17 156/63 (94) 95 High Flow N/C 3.00 09/15/20 16:14 36.7 09/15/20 16:00 60 13 149/56 (87) 96 High Flow N/C 3.00 09/15/20 15:00 60 12 135/59 (84) 95 High Flow N/C 3.00 09/15/20 14:00 61 14 142/57 (85) 96 High Flow N/C 3.00 09/15/20 13:51 96 High Flow N/C 3.00 09/15/20 13:00 61 26 156/74 (101) 95 High Flow N/C 3.00 09/15/20 12:21 60 09/15/20 12:19 36.8 09/15/20 12:00 60 13 147/71 (96) 95 High Flow N/C 3.00 09/15/20 11:45 High Flow N/C 3.00 09/15/20 11:00 60 19 147/70 (95) 95 Vapotherm 15.00 30.00 09/15/20 10:59 96 High Flow N/C 3.00 09/15/20 10:48 100 Vapotherm 15.00 30 09/15/20 10:15 Vapotherm 15.00 30.00 09/15/20 10:00 60 14 158/72 (100) 100 Vapotherm 20.00 35.00 09/15/20 09:00 60 13 161/70 (100) 100 Vapotherm 20.00 35.00 09/15/20 08:06 36.5 09/15/20 08:00 61 19 159/62 (94) 95 Vapotherm 20.00 35.00 09/15/20 07:57 93 Vapotherm 20.00 35 09/15/20 07:54 20.00 35.00 09/15/20 07:40 98 Vapotherm 20.00 30 09/15/20 07:00 60 11 156/61 (92) 95 Vapotherm 20.00 50.00 09/15/20 06:40 60 09/15/20 06:00 60 10 137/50 (79) 94 Vapotherm 20.00 50.00 09/15/20 05:00 60 12 132/53 (79) 92 Vapotherm 20.00 50.00 09/15/20 04:00 60 12 152/59 (90) 93 Vapotherm 20.00 50.00 I & O 09/16/20 07:00 Intake Total 1605 ml Output Total 775 ml Balance 830 ml Height & Weight Height: 5'9.00" Weight: 171lbs. 9.0oz. 77.586994og; 26.12 BMI Method:Stated General Appearance: No Apparent Distress, WD/WN HEENT: PERRL/EOMI, Pharynx Normal Neck: Normal Inspection, Supple Respiratory: Lungs Clear, Normal Breath Sounds, No Respiratory Distress Cardiovascular: Regular Rate, Rhythm, Systolic Murmur Capillary Refill: Less Than 3 Seconds Extremity: Normal Inspection, Non Tender Neurologic/Psychiatric: Alert, No Motor/Sensory Deficits, Normal Mood/Affect Skin: Normal Color, Warm/Dry Results Lab Laboratory Tests 09/15/20 02:20 09/16/20 02:05 Assessment/Plan Assessment/Plan Acute respiratory failure -- Worsening -4L high flow nasal cannula -COVID is negative ` -D/C Isolation -CXR and labs reviewed Pneumonia L>R -Merrem -Schneider cultures -MRSA swab is negative -Influenza is negative -WBC 9.7 today down from 11.7 yesterday HTN -PO BP meds Right ureteral Obstruction s/p surgery -Urology is following Acute on chronic renal failure AFib HX -Coumadin therapy -INR is 2.7 today Hypothyroidism Continue levothyroxine ZHANG HERCULES DO 09/16/20 0425: Assessment/Plan Assessment/Plan Acute respiratory failure -- Worsening -4L high flow nasal cannula -COVID is negative ` -D/C Isolation -CXR and labs reviewed Pneumonia L>R -Merrem -Schneider cultures -MRSA swab is negative -Influenza is negative -WBC 9.7 today down from 11.7 yesterday HTN -PO BP meds Right ureteral Obstruction s/p surgery -Urology is following Acute on chronic renal failure AFib HX -Coumadin therapy -- Now off -INR is 2.7 today Hypothyroidism Continue levothyroxine BARNEY COWAN MED STUDENT Sep 16, 2020 03:15 ZHANG HERCULES DO Sep 16, 2020 04:25
[2020-09-16] MEDS: hydrALAZINE (APRESOLINE) 25 MG TAB PO SCH ×3 (05:04→20:40)
[2020-09-16] MEDS ORDERED: SODIUM PHOSPHATE INJ 15 MM in D5W 100 ML IVPB 100 ML IV ONE (08:00)
--- NOTE | 2020-09-16 08:00 | Progress Note - Hospitalist ---
Subjective HPI/CC On Admission Date Seen by Provider: Sep 16, 2020 Time Seen by Provider: 07:56 Corina Baker is an 79-year-old female with past medical history of hypertension, atrial fibrillation on warfarin, hypothyroidism, who presented after having a fall at home. She reports that she has been having frequent falls recently. She uses a cane and a walker when she is at home. She denies any lightheadedness or dizziness. She has not been passing out. She denies any fevers or chills. She denies any shortness of breath or cough. She denies any chest pain. She denies any abdominal pain, nausea, or vomiting. She denies any diarrhea. She denies any dysuria. She has been urinating frequently. She denies any incontinence. Subjective/Events-last exam Pt reports doing well. Eating breakfast. No complaints. She was unable to get her MRI yesterday due to her pacemaker. Objective Exam Vital Signs Vital Signs Date Time Temp Pulse Resp B/P (MAP) Pulse Ox O2 Delivery O2 Flow Rate FiO2 09/16/20 07:02 96 High Flow N/C 3.00 09/16/20 06:00 60 17 166/65 (98) 09/16/20 03:21 36.3 09/15/20 10:48 30 Capillary Refill : Less Than 3 Seconds General Appearance: No Apparent Distress, WD/WN Respiratory: Lungs Clear, No Respiratory Distress Cardiovascular: Regular Rate, Rhythm, Systolic Murmur Gastrointestinal: Normal Bowel Sounds, Non Tender, Soft Neurologic/Psychiatric: Alert, Oriented x3 Results/Procedures Lab Laboratory Tests 09/16/20 02:05 Patient resulted labs reviewed. Imaging: Reviewed Imaging Report Assessment/Plan Assessment and Plan Assess & Plan/Chief Complaint Acute respiratory failure with hypoxia Pneumonia HFpEF Pulmonology and TeleICU consulted Extubated 09/12 Now on 2lpm Chest xray with dense right lung consolidation s/p course of Merrem Obstruction of right ureter Hydroureteronephrosis CT abdomen with right hydroureteronephrosis due to extrinsic compression, unclear if due to ovary, bowel, or mass Urology consulted, Dr. 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
--- NOTE | 2020-09-16 08:48 | Diagnostic Imaging Report ---
INDICATION: Shortness of breath COMPARISON: 09/15/2020 TECHNIQUE: Single radiograph of the chest dated 09/16/2020. FINDINGS: The cardiac silhouette remains enlarged. Loop recorder and pacer device overlying the left chest are again identified. Prior aortic valve repair is again noted. Right-sided PICC line is stable. Mild diffuse prominence of the pulmonary interstitium. Slightly worsened small left and trace right bibasilar pleural effusions. No pneumothorax. No acute osseous abnormality. Vascular calcifications within the aortic arch. IMPRESSION: Slightly worsening small left and tiny right bibasilar pleural effusions. Slight prominence of the pulmonary interstitium, favored to relate to mild interstitial edema. Otherwise, similar exam. Dictated by: Dictated on workstation # [id number]
[2020-09-16] MEDS ORDERED: KCL 20 MEQ TAB (K-DUR) PO ONE (09:00)
[2020-09-16] MEDS: LEVOTHYROXINE 75 MCG (LEVOTHROID) TABLET PO SCH (09:05)
[2020-09-16] MEDS: CARVEDILOL 12.5 MG (COREG) TABLET PO SCH ×2 (09:06→20:40)
[2020-09-16] MEDS: SENNOSIDES 8.6 MG (SENOKOT) TAB PO SCH ×2 (09:06→20:40)
[2020-09-16] MEDS: DOCUSATE SODIUM 100 MG (COLACE) CAP PO SCH ×2 (09:06→20:40)
--- NOTE | 2020-09-16 09:43 | Physical Therapy Daily Note ---
PT Daily Note-Current Subjective Patient agrees to PT/OT cotreat. Mental Status Patient Orientation: Person, Time, Situation Attachments: Oxygen, Miles Catheter Transfers SCALE: Activities may be completed with or without assistive devices. 1-Oskxrdzfer-nfusstb completes the activity by him/herself with no assistance from a helper. 5-Set-up or Clean-up Assistance-helper sets up or cleans up; patient completes activity. [place] assists only prior to or following the activity. 4-Supervision or Touching Assistance-helper provides verbal cues and/or touching/steadying and/or contact guard assistance as patient completes activity. Assistance may be provided throughout the activity or intermittently. 3-Partial/Moderate Assistance-helper does LESS THAN HALF the effort. [place] lifts, holds or supports trunk or limbs, but provides less than half the effort. 2-Substantial/Maximal Assistance-helper does MORE THAN HALF the effort. [place] lifts or holds trunk or limbs and provides more than half the effort. 8-Ahjnqunkg-uzothc does ALL the effort. Patient does none of the effort to complete the activity. Or, the assistance of 2 or more helpers is required for the patient to complete the activity. If activity was not attempted, code reason: 7-Patient Refused. 9-Not Applicable-not attempted and the patient did not perform the activity before the current illness, exacerbation or injury. 10-Not Attempted due to Environmental Limitations-(lack of equipment, weather restraints, etc.). 88-Not Attempted due to Medical Conditions or Safety Concerns. Roll Left & Right (QC): 1 Sit to Lying (QC): 1 Lying to Sitting/Side of Bed(Q: 1 Sit to Stand (QC): 2 (x2 to FWW with blocking bilateral LE ) Patient able to sit EOB SBA x 10 min/business initiatives manager FWW x 5-10 min while OT address ADL's Weight Bearing Right Lower Extremity: Right Weight Bearing/Tolerated Left Lower Extremity: Left Weight Bearing/Tolerated Gait Training Does the Patient Walk?: No and Walking Goal IS indicated Exercises Seated Therapy Exercises: Ankle pumps, Long arc quads Seated Reps: 12 (AAROM) Assessment Patient tolerated increase in activity on this date. PT to continue to increase activity as patient tolerates. PT Short Term Goals Short Term Goals Time Frame: Oct 01, 2020 Roll Left & Right: 3 Sit to lyin Lying to sitting on side of be: 3 Sit to stand: 3 Chair/qsi-rs-wpufa transfer: 3 Toilet transfer: 3 Walk 10 feet: 3 Walk 50 feet with two turns: 3 PT Inspector [employer] Goals Inspector [employer] Goals PT Inspector [employer] Goals Time Frame: Oct 18, 2020 Roll Left & Right (QC): 5 Sit to Lying (QC): 5 Lying-Sitting on Side/Bed(QC): 5 Sit to Stand (QC): 5 Chair/Moi-fw-Sfdqc Xfer(QC): 5 Toilet Transfer (QC): 5 Does the Patient Walk: Yes Walk 10 feet (QC): 5 Walk 50ft with 2 Turns (QC): 5 Walk 150 ft (QC): 5 1 Step (curb) (QC): 5 4 Steps (QC): 4 PT Plan Treatment/Plan Treatment Plan: Continue Plan of Care Treatment Plan: Bed Mobility, Education, Functional Activity Gilda, Functional Strength, Gait, Safety, Therapeutic Exercise, Transfers Treatment Duration: Oct 18, 2020 Frequency: 6 times per week Estimated Hrs Per Day: .5 hour per day Patient and/or Family Agrees t: Yes Time/GCodes Time In: 901 Time Out: 925 Total Billed Treatment Time: 24 Total Billed Treatment 1 visit FA x 2 24 min TOVA MONTERO PT Sep 16, 2020 09:43
--- NOTE | 2020-09-16 10:28 | Occupational Ther Daily Note ---
OT Current Status-Daily Note Subjective Pt AxO, sitting in bed. Pt agrees to tx, stating no pain, desiring to walk this date. Mental Status/Objective Patient Orientation: Person, Place, Situation Attachments: Miles Catheter, Oxygen, Telemetry ADL-Treatment Therapy Code Descriptions/Definitions Functional [place] Measure: 0=Not Assessed/NA 4=Minimal Assistance 1=Total Assistance 5=Supervision or Setup 2=Maximal Assistance 6=Modified [place] 3=Moderate Assistance 7=Complete IndependenceSCALE: Activities may be completed with or without assistive devices. 3-Npmfpnlsry-dhjuthv completes the activity by him/herself with no assistance from a helper. 5-Set-up or Clean-up Assistance-helper sets up or cleans up; patient completes activity. [place] assists only prior to or following the activity. 4-Supervision or Touching Assistance-helper provides verbal cues and/or touching/steadying and/or contact guard assistance as patient completes activity. Assistance may be provided throughout the activity or intermittently. 3-Partial/Moderate Assistance-helper does LESS THAN HALF the effort. [place] lifts, holds or supports trunk or limbs, but provides less than half the effort. 2-Substantial/Maximal Assistance-helper does MORE THAN HALF the effort. [place] lifts or holds trunk or limbs and provides more than half the effort. 1-Qtpqivcmq-nnspus does ALL the effort. Patient does none of the effort to complete the activity. Or, the assistance of 2 or more helpers is required for the patient to complete the activity. If activity was not attempted, code reason: 7-Patient Refused. 9-Not Applicable-not attempted and the patient did not perform the activity before the current illness, exacerbation or injury. 10-Not Attempted due to Environmental Limitations-(lack of equipment, weather restraints, etc.). 88-Not Attempted due to Medical Conditions or Safety Concerns. Eating (QC): 6 (reaches for and drinks water from straw.) Bathing Location: L Arm, R Arm, L Upper Leg, R Upper Leg, Chest, Abdomen, Perineal Area Shower/Bathe Self (QC): 1 (mod A (requires assist LB and bottom care- Ax2 for safety in stance during bottom care standing OEB)) Upper Body Dressing (QC): 3 (mod A, decreased UE strength. ) On/Off Footwear: 1 (TD) Toileting Hygiene (QC): 2 (max A bottom, s/u marisol supine in bed. Pt's marisol area/ internal thighs reddened. Requires OT to place barrier cream between legs) Other Treatment Pt bed mob with max A. pt sits EOB with min A-SBA, slight leaning to R/ back side. Pt requires increased time for righting. Sit to stand max Ax2 (requires physical cues for adjustment of UE/ bottom). Pt stands with PT while OT addresses bottom care, no redness noted. Wiped clean. Pt returns to EOB/ sitting, completes small UB sponge bath (maintains support BUE on walker during washing, requires extra time for reaching B arm pits and abdomen, mod A UB dressing). Pt concerned she will fall, reassured she is okay with support. SBA throughout. Pt returns to supine with max A. Pulled to HOB with TD. Adjusted to comfort, all needs met, call light in reach. Education OT Patient Education: Correct positioning, Modified ADL techniques, Purpose of tx/functional activities, Safety issues, Transfer techniques Teaching Recipient: Patient Teaching Methods: Demonstration, Discussion Response to Teaching: Verbalize Understanding, Return Demonstration, Rein forcement Needed OT Short Term Goals Short Term Goals Time Frame: Sep 26, 2020 Eatin Oral hygiene: 5 Toileting hygiene: 2 Shower/bathe self: 3 Upper body dressin Lower body dressin OT Retirement Goals Retirement Goals Time Frame: Oct 10, 2020 Eating (QC): 6 Oral Hygiene (QC): 6 Toileting Hygiene (QC): 4 Shower/Bathe Self (QC): 4 Upper Body Dressing (QC): 5 Lower Body Dressing (QC): 4 On/Off Footwear (QC): 4 Additional Goals: 1-Demonstrate ADL Tasks, 2-Verbalize Understanding, 3-Impr oveStrength/Gilda 1=Demonstrate adherence to instructed precautions during ADL tasks. 2=Patient will verbalize/demonstrate understanding of assistive devices/modifications for ADL. 3=Patient will improve strength/tolerance for activity to enable patient to perform ADL's. OT Education/Plan Problem List/Assessment Assessment: Decreased Activ Tolerance, Decreased UE Strength, Dependent Transfers, Impaired Bed Mobility, Impaired Funct Balance, Impaired I ADL's, Impa ired Self-Care Skills, Restricted Funct UE ROM Discharge Recommendations Plan/Recommendations: Continue POC Therapy Discharge Recommendati: 24 Hour Supervision, Post Acute OT Treatment Plan/Plan of Care Treatment,Training & Education: Yes Patient would benefit from OT for education, treatment and training to promote independence in ADL's, mobility, safety and/or upper extremity function for ADL's. Plan of Care: ADL Retraining, Functional Mobility, UE Funct Exercise/Act Treatment Duration: Oct 10, 2020 Frequency: 5 times per week Estimated Hrs Per Day: .25 hour per day Rehab Potential: Fair Time/GCodes Start Time: 09:00 Stop Time: 09:32 Total Time Billed (hr/min): 32 Billed Treatment Time 1, ADL 2 (32) JAMES WHITEHEAD OTR Sep 16, 2020 10:28
--- NOTE | 2020-09-16 10:41 | Progress Note - Urology ---
Progress Note-Urology Progress Notes/Assess & Plan Progress/Assessment & Plan PLAN IV CT ABDOMEN AND PELVIS SINCE UNABLE TO OBTAIN MRI Final Diagnosis RT URETERAL OBSTRUCTION JL BRYSON MD Sep 16, 2020 10:41
[2020-09-16] MEDS ORDERED: NS 100 ML (IVPB) BAG IV ONE (11:15)
[2020-09-16] MEDS ORDERED: IOHEXOL 350 MG/ML 100 ML (OMNIPAQUE 350) VIAL IV ONE (11:15)
[2020-09-16] MEDS ORDERED: CATHETER FLUSH 10 ML SYR IV PRN (11:15)
[2020-09-16] MEDS ORDERED: HOLD METFORMIN - RECEIVED CONTRAST 20 ML VIAL IV SCH (11:15)
--- NOTE | 2020-09-16 12:16 | Diagnostic Imaging Report ---
PROCEDURE: CT abdomen and pelvis with contrast. TECHNIQUE: Multiple contiguous axial images were obtained through the abdomen and pelvis after administration of intravenous contrast. Auto Exposure Controls were utilized during the CT exam to meet ALARA standards for radiation dose reduction. All CT scans use one or more of the following dose optimizing techniques: automated exposure control, MA and/or KvP adjustment based on patient size and exam type or iterative reconstruction. INDICATION: Ureteral obstruction Compared with study 09/06/2020 FINDINGS: Since the comparison a right-sided double-J stent has been placed proximally and distally coiled in good position with resolution of the previous right hydroureteronephrosis and resolution of the right perinephric fluid and stranding. No extravasation of the contrast medial on the delayed images. The urinary bladder is catheterized but appeared intrinsically unremarkable. There is some dependent presacral pelvic free fluid having developed without extravasation of vascular or urinary tract contrast media. There is some increased mild diffuse integumentary and subcutaneous edema as well as increased nonloculated dependent basilar pleural fluid and subjacent atelectasis. Spleen, adrenals, pancreas and liver unremarkable. Cystic structure in the pancreatic neck body junction showed no enhancing or soft tissue component measuring 1 cm stable. IMPRESSION: Stent placed in good position with resolution of right hydroureteronephrosis and perinephric fluid. Small volume pelvic free fluid is nonloculated without contrast extravasation. Increased integumentary edema and nonloculated bibasilar pleural effusions have developed. Dictated by: Dictated on workstation # [id number]
[2020-09-17 00:14] VITALS: BP 171/77
[2020-09-17] MEDS: IPRATROPIUM INHALER (ATROVENT) 12.9 GM INH SCH ×6 (01:59→22:29)
[2020-09-17] MEDS: RT-ALBUTEROL INHALER HFA (VENTOLIN HFA) 18 GM IH SCH ×6 (01:59→22:29)
[2020-09-17] MEDS: hydrALAZINE (APESOLINE) 20 MG/ML VIAL IV PRN ×2 (04:31→18:00)
[2020-09-17 04:36] VITALS: BP 185/76
[2020-09-17] MEDS: hydrALAZINE (APRESOLINE) 25 MG TAB PO SCH ×3 (05:49→23:20)
[2020-09-17 05:56] LABS: BASOPHILS # (AUTO) 0.1 10^3/uL (0.0-0.1); BASOPHILS % (AUTO) 0 % (0-10); EOSINOPHILS # (AUTO) 0.4 10^3/uL (0.0-0.3); EOSINOPHILS % (AUTO) 3 % (0-10); HEMATOCRIT 33 % (35-52); HEMOGLOBIN 10.3 g/dL (11.5-16.0); LYMPHOCYTES # (AUTO) 1.6 10^3/uL (1.0-4.0); LYMPHOCYTES % (AUTO) 13 % (12-44); MEAN CORPUSCULAR HEMOGLOBIN 30 pg (25-34); MEAN CORPUSCULAR HGB CONC 31 g/dL (32-36); MEAN CORPUSCULAR VOLUME 96 fL (80-99); MEAN PLATELET VOLUME 9.5 fL (9.0-12.2); MONOCYTES # (AUTO) 1.2 10^3/uL (0.0-1.0); MONOCYTES % (AUTO) 11 % (0-12); NEUTROPHILS # (AUTO) 8.5 10^3/uL (1.8-7.8); NEUTROPHILS % (AUTO) 72 % (42-75); PLATELET COUNT 317 10^3/uL (130-400); WHITE BLOOD COUNT 11.8 10^3/uL (4.3-11.0)
--- NOTE | 2020-09-17 06:04 | Pulmonary Progress Note ---
Subjective Time Seen by a Provider: 06:00 Subjective/Events-last exam Pt is doing much better. Sepsis Event Evaluation Height, Weight, BMI Height: 5'9.00" Weight: 171lbs. 9.0oz. 77.941422pj; 26.12 BMI Method:Stated Exam Exam Vital Signs Date Time Temp Pulse Resp B/P (MAP) Pulse Ox O2 Delivery O2 Flow Rate FiO2 09/17/20 04:36 36.7 61 22 185/76 (112) 94 High Flow N/C 2.00 09/17/20 01:59 93 High Flow N/C 2.00 09/17/20 01:00 60 09/17/20 00:14 36.1 62 20 171/77 (108) 95 High Flow N/C 2.00 09/16/20 21:42 92 High Flow N/C 2.00 09/16/20 20:50 193/84 (120) 09/16/20 20:40 High Flow N/C 2.00 09/16/20 20:21 60 09/16/20 19:44 36.4 65 20 217/88 (131) 96 High Flow N/C 2.00 09/16/20 19:00 65 09/16/20 18:40 93 High Flow N/C 2.00 09/16/20 16:32 63 09/16/20 16:24 95 High Flow N/C 2.00 09/16/20 16:00 36.4 61 21 171/76 (107) High Flow N/C 2.00 09/16/20 15:14 93 High Flow N/C 2.00 09/16/20 12:10 36.6 61 20 191/86 (121) 95 High Flow N/C 2.00 09/16/20 10:14 36.5 65 18 188/82 (117) 95 High Flow N/C 2.00 09/16/20 09:49 96 High Flow N/C 2.00 09/16/20 08:00 64 19 165/68 (100) 96 High Flow N/C 3.00 09/16/20 07:54 96 High Flow N/C 2.00 09/16/20 07:30 36.9 09/16/20 07:02 96 High Flow N/C 3.00 09/16/20 06:36 60 I & O 09/17/20 07:00 Intake Total 1375 ml Output Total 2125 ml Balance -750 ml Height & Weight Height: 5'9.00" Weight: 171lbs. 9.0oz. 77.848142vu; 26.12 BMI Method:Stated General Appearance: No Apparent Distress, WD/WN HEENT: PERRL/EOMI, Pharynx Normal Neck: Normal Inspection, Supple Respiratory: Lungs Clear, No Respiratory Distress Cardiovascular: Regular Rate, Rhythm, Systolic Murmur Capillary Refill: Less Than 3 Seconds Extremity: Normal Inspection, Non Tender Neurologic/Psychiatric: Alert, Oriented x3 Skin: Normal Color, Warm/Dry Results Lab Laboratory Tests 09/16/20 02:05 Assessment/Plan Assessment/Plan Acute respiratory failure --much improved -2liter NC -- Continue to titrate down -COVID is negative -Check BNP Pneumonia L>R - resolving -s/p Merrem -MRSA swab is negative -Influenza is negative HTN Right ureteral Obstruction s/p surgery -Urology is following Acute on chronic renal failure AFib HX -Coumadin therapy -INR is 2.7 today Hypothyroidism Continue levothyroxine ZHANG HERCULES DO Sep 17, 2020 06:04
[2020-09-17 06:13] LABS: CHLORIDE 101 MMOL/L (98-107); POTASSIUM 3.6 MMOL/L (3.6-5.0); SODIUM 141 MMOL/L (135-145)
[2020-09-17 06:15] LABS: GLUCOSE 105 MG/DL (70-105); INR 1.6 (0.8-1.4); PROTHROMBIN TIME PATIENT 19.7 SEC (12.2-14.7)
[2020-09-17 06:17] LABS: CARBON DIOXIDE 32 MMOL/L (21-32)
[2020-09-17] MEDS: POTASSIUM CL 10MEQ/50ML IVPB 50 ML IV SCH (06:18)
[2020-09-17] MEDS: KCL 20 MEQ TAB (K-DUR) PO SCH (06:18)
[2020-09-17 06:19] LABS: CREATININE SERUM 0.67 MG/DL (0.60-1.30); GFR ESTIMATED > 60
[2020-09-17 06:20] LABS: BUN/CREATININE RATIO 19
[2020-09-17 06:21] LABS: MAGNESIUM 1.6 MG/DL (1.6-2.4)
[2020-09-17] MEDS: MAGNESIUM 1 GM/100 ML IVPB 100 ML IV SCH ×3 (06:30→09:06)
[2020-09-17 08:00] VITALS: BP 169/74
--- NOTE | 2020-09-17 08:24 | Diagnostic Imaging Report ---
INDICATION: Shortness of breath Portable chest 5:14 AM There is a dual-chamber pacemaker. Right upper extremity PICC line tip projects over the SVC. There is a loop recorder projecting over left lower chest. There is a tiny left effusion with some left basilar atelectasis. IMPRESSION: Overall aeration of lungs is improved. There is some residual left basilar atelectasis and a tiny left effusion. Dictated by: Dictated on workstation # [id number]
[2020-09-17] MEDS ORDERED: amLODIPine 5 MG (NORVASC) TAB PO SCH (09:00)
[2020-09-17] MEDS ORDERED: KCL 20 MEQ TAB (K-DUR) PO ONE (09:00)
[2020-09-17] MEDS: SENNOSIDES 8.6 MG (SENOKOT) TAB PO SCH ×2 (09:04→21:14)
[2020-09-17] MEDS: LEVOTHYROXINE 75 MCG (LEVOTHROID) TABLET PO SCH (09:04)
[2020-09-17] MEDS: CARVEDILOL 12.5 MG (COREG) TABLET PO SCH ×2 (09:04→21:12)
[2020-09-17] MEDS: DOCUSATE SODIUM 100 MG (COLACE) CAP PO SCH ×2 (09:04→21:14)
--- NOTE | 2020-09-17 10:03 | Physical Therapy Daily Note ---
PT Daily Note-Current Subjective Patient in recliner pre tx, agrees to PT, has no complaints of pain. Appearance Patient in recliner post tx with nurse call, phone, tray, all needs met. Mental Status Patient Orientation: Person, Place, Situation Attachments: Miles Catheter Transfers SCALE: Activities may be completed with or without assistive devices. 7-Uayfkvlcpf-mahxycq completes the activity by him/herself with no assistance from a helper. 5-Set-up or Clean-up Assistance-helper sets up or cleans up; patient completes activity. [place] assists only prior to or following the activity. 4-Supervision or Touching Assistance-helper provides verbal cues and/or touching/steadying and/or contact guard assistance as patient completes activity. Assistance may be provided throughout the activity or intermittently. 3-Partial/Moderate Assistance-helper does LESS THAN HALF the effort. [place] lifts, holds or supports trunk or limbs, but provides less than half the effort. 2-Substantial/Maximal Assistance-helper does MORE THAN HALF the effort. [place] lifts or holds trunk or limbs and provides more than half the effort. 8-Bwumtflkh-sxbztz does ALL the effort. Patient does none of the effort to complete the activity. Or, the assistance of 2 or more helpers is required for the patient to complete the activity. If activity was not attempted, code reason: 7-Patient Refused. 9-Not Applicable-not attempted and the patient did not perform the activity before the current illness, exacerbation or injury. 10-Not Attempted due to Environmental Limitations-(lack of equipment, weather restraints, etc.). 88-Not Attempted due to Medical Conditions or Safety Concerns. Sit to Stand (QC): 3 Patient stands with mod assist x3 and ambulates each time. Immediately upon standing patient is retropulsive but improves with ambulation. Weight Bearing Right Lower Extremity: Right Weight Bearing/Tolerated Left Lower Extremity: Left Weight Bearing/Tolerated Gait Training Distance: 8'x2, 5' Gait Assistive Device: FWW follow with chair, short choppy steps, needs cues to take bigger steps and stand up strait and use armrests when sit <-> stand Treatments ambulation Assessment Current Status: Fair Progress improving endurance PT Short Term Goals Short Term Goals Time Frame: Oct 01, 2020 Roll Left & Right: 3 Sit to lyin Lying to sitting on side of be: 3 Sit to stand: 3 Chair/xad-jv-hvmry transfer: 3 Toilet transfer: 3 Walk 10 feet: 3 Walk 50 feet with two turns: 3 PT Grill Chef Goals Longterm Goals PT Longterm Goals Time Frame: Oct 18, 2020 Roll Left & Right (QC): 5 Sit to Lying (QC): 5 Lying-Sitting on Side/Bed(QC): 5 Sit to Stand (QC): 5 Chair/Xml-ko-Bwjhv Xfer(QC): 5 Toilet Transfer (QC): 5 Does the Patient Walk: Yes Walk 10 feet (QC): 5 Walk 50ft with 2 Turns (QC): 5 Walk 150 ft (QC): 5 1 Step (curb) (QC): 5 4 Steps (QC): 4 PT Plan Problem List Problem List: Activity Tolerance, Functional Strength, Safety, Balance, Gait, Transfer, Bed Mobility, ROM Treatment/Plan Treatment Plan: Continue Plan of Care Treatment Plan: Bed Mobility, Education, Functional Activity Gilda, Functional Strength, Gait, Safety, Therapeutic Exercise, Transfers Treatment Duration: Oct 18, 2020 Frequency: 6 times per week Estimated Hrs Per Day: .5 hour per day Patient and/or Family Agrees t: Yes Safety Risks/Education Patient Education: Gait Training, Transfer Techniques, Correct Positioning, Safety Issues Teaching Recipient: Patient Teaching Methods: Demonstration, Discussion Response to Teaching: Reinforcement Needed Time/GCodes Time In: 932 Time Out: 948 Total Billed Treatment Time: 16 Total Billed Treatment 1 visit GT 16' SABRINA SHERMAN PT Sep 17, 2020 10:03
--- NOTE | 2020-09-17 10:35 | Occupational Ther Daily Note ---
OT Current Status-Daily Note Subjective Pt AxO, upright in recliner. Pt denies pain, agrees to OT/ PT co-treat. Pt very motivated; states doesn't know why she is so weak, educated on ventilator hx and process. Mental Status/Objective Patient Orientation: Person, Place, Situation, Normal For Age Attachments: Miles Catheter ADL-Treatment Therapy Code Descriptions/Definitions Functional Page Measure: 0=Not Assessed/NA 4=Minimal Assistance 1=Total Assistance 5=Supervision or Setup 2=Maximal Assistance 6=Modified Page 3=Moderate Assistance 7=Complete IndependenceSCALE: Activities may be completed with or without assistive devices. 7-Wzadqzqnyl-evzbnss completes the activity by him/herself with no assistance from a helper. 5-Set-up or Clean-up Assistance-helper sets up or cleans up; patient completes a ctivity. [place] assists only prior to or following the activity. 4-Supervision or Touching Assistance-helper provides verbal cues and/or touching/steadying and/or contact guard assistance as patient completes activity. Assistance may be provided throughout the activity or intermittently. 3-Partial/Moderate Assistance-helper does LESS THAN HALF the effort. [place] lifts, holds or supports trunk or limbs, but provides less than half the effort. 2-Substantial/Maximal Assistance-helper does MORE THAN HALF the effort. [place] lifts or holds trunk or limbs and provides more than half the effort. 2-Xhyypkwyz-sqgawm does ALL the effort. Patient does none of the effort to complete the activity. Or, the assistance of 2 or more helpers is required for the patient to complete the activity. If activity was not attempted, code reason: 7-Patient Refused. 9-Not Applicable-not attempted and the patient did not perform the activity before the current illness, exacerbation or injury. 10-Not Attempted due to Environmental Limitations-(lack of equipment, weather restraints, etc.). 88-Not Attempted due to Medical Conditions or Safety Concerns. Eating (QC): 6 Oral Hygiene (QC): 6 (completed prior to entry) Lower Body Dressing (QC): 3 (mod A: Pt requries assist threading catheter RLE and min A with LLE. Pt encouraged to breath throughout bending (pt unable to bring ankle to knee due to weakness). Pt then sit to stand, able to tack puller machine hips with mod A (though Ax2 in stance for safety)) Other Treatment Briefs threaded prior to stance. Pt completes sit to stand from recliner with max Ax2. Pt bent over posture, is encouraged to straighten up. However, pt requires to pull up pants prior to standing upright (requires mod Ax2 to continue in stance during this). Pt ambulates 3x with rest break in between (see PT notes for sit to stand and ambulation distance). OT follows with chair and assists with sit to stands. Each sit to stand with increasing ability. Pt left in recliner with all needs met, call light in reach, TV on and pt's questions answered. Education OT Patient Education: Correct positioning, Exercise program, Progress toward Goal/Update tx plan, Purpose of tx/functional activities, Safety issues, Transfer techniques Teaching Recipient: Patient Teaching Methods: Demonstration, Discussion Response to Teaching: Verbalize Understanding, Return Demonstration OT Short Term Goals Short Term Goals Time Frame: Sep 26, 2020 Eatin Oral hygiene: 5 Toileting hygiene: 2 Shower/bathe self: 3 Upper body dressin Lower body dressin OT Senior Living Goals Senior Living Goals Time Frame: Oct 10, 2020 Eating (QC): 6 Oral Hygiene (QC): 6 Toileting Hygiene (QC): 4 Shower/Bathe Self (QC): 4 Upper Body Dressing (QC): 5 Lower Body Dressing (QC): 4 On/Off Footwear (QC): 4 Additional Goals: 1-Demonstrate ADL Tasks, 2-Verbalize Understanding, 3-I mproveStrength/Gilda 1=Demonstrate adherence to instructed precautions during ADL tasks. 2=Patient will verbalize/demonstrate understanding of assistive devices/modifications for ADL. 3=Patient will improve strength/tolerance for activity to enable patient to perform ADL's. OT Education/Plan Problem List/Assessment Assessment: Decreased Activ Tolerance, Decreased UE Strength, Dependent Transfers, Edema, Impaired Bed Mobility, Impaired Funct Balance, Impaired I A DL's, Impaired Self-Care Skills Discharge Recommendations Plan/Recommendations: Continue POC Therapy Discharge Recommendati: Post Acute OT Treatment Plan/Plan of Care Treatment,Training & Education: Yes Patient would benefit from OT for education, treatment and training to promote independence in ADL's, mobility, safety and/or upper extremity function for ADL's. Plan of Care: ADL Retraining, Functional Mobility, UE Funct Exercise/Act Treatment Duration: Oct 10, 2020 Frequency: 5 times per week Estimated Hrs Per Day: .25 hour per day Rehab Potential: Fair Time/GCodes Start Time: 09:32 Stop Time: 09:51 Total Time Billed (hr/min): 19 Billed Treatment Time 1, EX (19) JAMES WHITEHEAD OTR Sep 17, 2020 10:35
--- NOTE | 2020-09-17 11:42 | Progress Note - Urology ---
Progress Note-Urology Progress Notes/Assess & Plan Progress/Assessment & Plan NO EXTRINSIC REASON FOR RT URETERAL OBSTRUCTION. POSSIBLE INTRINSIC ONE I.E PASSED STONE OR CLOTS WHICH WERE THE CYSTOSCOPIC FINDINGS. PLAN DC STENT IN OFFICE NEXT WEEK Final Diagnosis RT URETERAL OBSTRUCTION (RESOLVED) JL BRYSON MD Sep 17, 2020 11:42
--- NOTE | 2020-09-17 11:45 | Progress Note - Hospitalist ---
Subjective HPI/CC On Admission Date Seen by Provider: Sep 17, 2020 Time Seen by Provider: 11:39 Corina Baker is an 79-year-old female with past medical history of hypertension, atrial fibrillation on warfarin, hypothyroidism, who presented after having a fall at home. She reports that she has been having frequent falls recently. She uses a cane and a walker when she is at home. She denies any lightheadedness or dizziness. She has not been passing out. She denies any fevers or chills. She denies any shortness of breath or cough. She denies any chest pain. She denies any abdominal pain, nausea, or vomiting. She denies any diarrhea. She denies any dysuria. She has been urinating frequently. She denies any incontinence. Subjective/Events-last exam pt reports doing well. Would like to work more with therapy so that she can get strong enough to go home. Objective Exam Vital Signs Vital Signs Date Time Temp Pulse Resp B/P (MAP) Pulse Ox O2 Delivery O2 Flow Rate FiO2 09/17/20 10:23 93 Room Air 09/17/20 08:00 2.00 09/17/20 08:00 37.0 64 20 169/74 (105) 09/15/20 10:48 30 Capillary Refill : Less Than 3 Seconds General Appearance: No Apparent Distress, WD/WN Respiratory: Lungs Clear, No Respiratory Distress Cardiovascular: Regular Rate, Rhythm, No Murmur Gastrointestinal: Normal Bowel Sounds, Non Tender, Soft Neurologic/Psychiatric: Alert, Oriented x3 Results/Procedures Lab Laboratory Tests 09/17/20 05:45 Patient resulted labs reviewed. Imaging: Reviewed Imaging Report Assessment/Plan Assessment and Plan Assess & Plan/Chief Complaint Acute respiratory failure with hypoxia Pneumonia HFpEF Pulmonology and TeleICU consulted Extubated 09/12 Now on 2lpm, continue to wean s/p course of Merrem Obstruction of right ureter Hydroureteronephrosis CT abdomen with right hydroureteronephrosis due to extrinsic compression, unclear if due to ovary, bowel, or mass Urology consulted, Dr. Zayas Cystoscopy with ureteral stent placement 09/10 Pelvic MRI unable to be obtained, CT done which showed resolution of hydroureteronephrosis and stent in good position and no mass Essential HTN Continue antihypertensives Added amlodipine this AM AFib Compensated systolic HF s/p aortic valve replacement INR down to 1.6, add Lovenox to cover until back to therapeutic Resume Coumadin Trend INR Hypothyroidism Continue levothyroxine DVT prophylaxis: Coumadin HTN emergency, resolved Acute kidney injury superimposed on chronic kidney disease, resolved LEONEL TUTTLE MD Sep 17, 2020 11:45
[2020-09-17 11:58] VITALS: BP 172/66
[2020-09-17] MEDS: ENOXAPARIN 100 MG/1 ML (LOVENOX) SYR SC SCH ×2 (14:14→23:20)
[2020-09-17 15:42] VITALS: BP 175/79
[2020-09-17] MEDS: warFARin 4 MG (COUMADIN) TAB PO SCH (18:14)
[2020-09-17 19:38] VITALS: BP 176/74
[2020-09-18] VITALS (8 sets, daily range): BP systolic 136–188; BP diastolic 64–81
[2020-09-18] MEDS: RT-ALBUTEROL INHALER HFA (VENTOLIN HFA) 18 GM IH SCH ×5 (02:29→23:04)
[2020-09-18] MEDS: IPRATROPIUM INHALER (ATROVENT) 12.9 GM INH SCH ×5 (02:30→23:04)
[2020-09-18 05:40] LABS: BASOPHILS % (AUTO) 0 % (0-10); EOSINOPHILS # (AUTO) 0.3 10^3/uL (0.0-0.3); EOSINOPHILS % (AUTO) 3 % (0-10); HEMATOCRIT 33 % (35-52); HEMOGLOBIN 10.4 g/dL (11.5-16.0); LYMPHOCYTES # (AUTO) 1.5 10^3/uL (1.0-4.0); LYMPHOCYTES % (AUTO) 12 % (12-44); MEAN CORPUSCULAR HEMOGLOBIN 30 pg (25-34); MEAN CORPUSCULAR HGB CONC 31 g/dL (32-36); MEAN CORPUSCULAR VOLUME 95 fL (80-99); MONOCYTES # (AUTO) 1.1 10^3/uL (0.0-1.0); MONOCYTES % (AUTO) 9 % (0-12); NEUTROPHILS % (AUTO) 75 % (42-75); PLATELET COUNT 299 10^3/uL (130-400); WHITE BLOOD COUNT 11.9 10^3/uL (4.3-11.0)
[2020-09-18 06:00] LABS: CHLORIDE 101 MMOL/L (98-107); POTASSIUM 3.4 MMOL/L (3.6-5.0); SODIUM 141 MMOL/L (135-145)
[2020-09-18] MEDS ORDERED: FUROSEMIDE 40 MG/4 ML INJ (LASIX) IVP ONE (06:00)
--- NOTE | 2020-09-18 06:00 | Pulmonary Progress Note ---
Subjective Time Seen by a Provider: 06:00 Subjective/Events-last exam Pt appears to be doing better. Sepsis Event Evaluation Height, Weight, BMI Height: 5'9.00" Weight: 171lbs. 9.0oz. 77.041846fk; 26.12 BMI Method:Stated Exam Exam Vital Signs Date Time Temp Pulse Resp B/P (MAP) Pulse Ox O2 Delivery O2 Flow Rate FiO2 09/18/20 03:52 36.2 67 20 172/79 (110) 91 Room Air 09/18/20 02:31 94 Room Air 09/18/20 02:30 94 Room Air 09/18/20 01:00 70 09/18/20 00:21 36.5 63 18 172/78 (109) 92 Room Air 09/17/20 22:29 94 Room Air 09/17/20 21:00 Room Air 09/17/20 19:38 36.6 64 20 176/74 (108) 92 Room Air 09/17/20 19:00 72 09/17/20 18:57 93 Room Air 09/17/20 18:57 93 Room Air 09/17/20 15:42 36.8 60 18 175/79 (111) 92 Room Air 09/17/20 14:17 93 Room Air 09/17/20 14:17 94 Room Air 09/17/20 12:22 64 09/17/20 11:58 36.7 67 20 172/66 (101) 94 Room Air 09/17/20 10:23 93 Room Air 09/17/20 10:23 93 Room Air 09/17/20 09:03 Room Air 09/17/20 08:00 High Flow N/C 2.00 09/17/20 08:00 37.0 64 20 169/74 (105) 93 High Flow N/C 2.00 09/17/20 07:43 62 09/17/20 07:13 96 High Flow N/C 2.00 09/17/20 07:11 96 High Flow N/C 2.00 I & O 09/18/20 07:00 Intake Total 1180 ml Output Total 3000 ml Balance -1820 ml Height & Weight Height: 5'9.00" Weight: 171lbs. 9.0oz. 77.605300jh; 26.12 BMI Method:Stated General Appearance: No Apparent Distress, WD/WN HEENT: PERRL/EOMI, Pharynx Normal Neck: Normal Inspection, Supple Respiratory: Lungs Clear, No Respiratory Distress Cardiovascular: Regular Rate, Rhythm, No Murmur Capillary Refill: Less Than 3 Seconds Extremity: Normal Inspection, Non Tender Neurologic/Psychiatric: Alert, Oriented x3 Skin: Normal Color, Warm/Dry Results Lab Laboratory Tests 09/17/20 05:45 09/18/20 05:20 Assessment/Plan Assessment/Plan Acute respiratory failure --much improved -2liter NC -- Continue to titrate down -COVID is negative pulmonary edema with small bilateral pleural effusions and mild hypoxia -Give 60mg of Lasix x 1 -Give 60meq of K dur with Lasix Pneumonia L>R - resolving -s/p Merrem -MRSA swab is negative -Influenza is negative HTN Right ureteral Obstruction s/p surgery -Urology is following Acute on chronic renal failure AFib HX -Coumadin therapy -INR is 2.7 today Hypothyroidism Continue levothyroxine ZHANG HERCULES DO Sep 18, 2020 06:00
[2020-09-18 06:02] LABS: GLUCOSE 100 MG/DL (70-105)
[2020-09-18 06:03] LABS: CARBON DIOXIDE 31 MMOL/L (21-32)
[2020-09-18] MEDS: POTASSIUM CL 10MEQ/50ML IVPB 50 ML IV SCH (06:04)
[2020-09-18 06:05] LABS: INR 1.3 (0.8-1.4)
[2020-09-18 06:06] LABS: CREATININE SERUM 0.72 MG/DL (0.60-1.30); GFR ESTIMATED > 60
[2020-09-18 06:07] LABS: BUN/CREATININE RATIO 14
[2020-09-18 06:08] LABS: MAGNESIUM 1.8 MG/DL (1.6-2.4)
[2020-09-18] MEDS: MAGNESIUM 1 GM/100 ML IVPB 100 ML IV SCH (06:16)
[2020-09-18] MEDS: KCL 20 MEQ TAB (K-DUR) PO SCH (06:26)
[2020-09-18] MEDS ORDERED: KCL 20 MEQ TAB (K-DUR) PO ONE ×2 (06:30→08:00)
[2020-09-18] MEDS: hydrALAZINE (APRESOLINE) 25 MG TAB PO SCH ×3 (06:32→23:27)
[2020-09-18] MEDS: LEVOTHYROXINE 75 MCG (LEVOTHROID) TABLET PO SCH (08:48)
[2020-09-18] MEDS: CARVEDILOL 12.5 MG (COREG) TABLET PO SCH ×2 (08:48→20:50)
[2020-09-18] MEDS: amLODIPine 10 MG (NORVASC) TAB PO SCH (08:49)
--- NOTE | 2020-09-18 08:49 | Diagnostic Imaging Report ---
INDICATION: Shortness of air. TECHNIQUE: Single view chest 5:35 AM. CORRELATION STUDY: 09/17/2020 FINDINGS: Left-sided dual-chamber pacemaker with loop recorder device. TAVR present. Heart size is enlarged. Vasculature appears slightly increased from previous. Small pleural effusions, left slightly greater than right, persisting. Patchy pulmonary parenchymal opacities particularly at the lung bases and upper lobes right greater than left. IMPRESSION: 1. Cardiac enlargement with vasculature appearing slightly more prominent from prior. 2. Small bilateral pleural effusions along with patchy pulmonary opacities may reflect infiltrate and/or edema. Dictated by: Dictated on workstation # [id number]
[2020-09-18] MEDS: DOCUSATE SODIUM 100 MG (COLACE) CAP PO SCH ×2 (08:56→20:50)
[2020-09-18] MEDS: SENNOSIDES 8.6 MG (SENOKOT) TAB PO SCH ×2 (08:56→20:51)
[2020-09-18] MEDS: ENOXAPARIN 100 MG/1 ML (LOVENOX) SYR SC SCH ×2 (12:33→23:27)
--- NOTE | 2020-09-18 12:47 | Progress Note - Hospitalist ---
Subjective HPI/CC On Admission Date Seen by Provider: Sep 18, 2020 Time Seen by Provider: 12:44 Corina Baker is an 79-year-old female with past medical history of hypertension, atrial fibrillation on warfarin, hypothyroidism, who presented after having a fall at home. She reports that she has been having frequent falls recently. She uses a cane and a walker when she is at home. She denies any lightheadedness or dizziness. She has not been passing out. She denies any fevers or chills. She denies any shortness of breath or cough. She denies any chest pain. She denies any abdominal pain, nausea, or vomiting. She denies any diarrhea. She denies any dysuria. She has been urinating frequently. She denies any incontinence. Subjective/Events-last exam Pt reports feeling better today. Did well with therapy yesterday and improving. Discussed option for IRU and she is interested in hearing more about it. Otherwise would just like her [employer] plant watered. Objective Exam Vital Signs Vital Signs Date Time Temp Pulse Resp B/P (MAP) Pulse Ox O2 Delivery O2 Flow Rate FiO2 09/18/20 11:45 36.7 66 20 136/69 (91) 96 Room Air 09/17/20 08:00 2.00 09/15/20 10:48 30 Capillary Refill : Less Than 3 Seconds General Appearance: No Apparent Distress, Chronically ill Respiratory: Lungs Clear, No Respiratory Distress Cardiovascular: Regular Rate, Rhythm, Systolic Murmur Neurologic/Psychiatric: Alert, Oriented x3, Normal Mood/Affect Results/Procedures Lab Laboratory Tests 09/18/20 05:20 Patient resulted labs reviewed. Imaging: Reviewed Imaging Report Assessment/Plan Assessment and Plan Assess & Plan/Chief Complaint Acute respiratory failure with hypoxia Pneumonia HFpEF Pulmonology and TeleICU consulted Extubated 09/12 Now on room air s/p course of Merrem Obstruction of right ureter Hydroureteronephrosis- resolved CT abdomen with right hydroureteronephrosis due to extrinsic compression, unclear if due to ovary, bowel, or mass Urology consulted, Dr. Zayas Cystoscopy with ureteral stent placement 09/10 Pelvic MRI unable to be obtained, CT done which showed resolution of hydroureteronephrosis and stent in good position and no mass Essential HTN Continue antihypertensives, trend improved after AM meds AFib Compensated systolic HF s/p aortic valve replacement INR down to 1.3, continue Lovenox to cover until back to therapeutic Continue Coumadin Trend INR Hypothyroidism Continue levothyroxine DVT prophylaxis: Coumadin HTN emergency, resolved Acute kidney injury superimposed on chronic kidney disease, resolved LEONEL TUTTLE MD Sep 18, 2020 12:47
--- NOTE | 2020-09-18 14:16 | Occupational Ther Daily Note ---
OT Current Status-Daily Note Subjective Pt reported no pain and enthusiastically agreed to OT tx. Upon OT leaving room, OT asked if pt wanted her legs up and she stated that she didn't want too because she wanted to continue to do therapy and get better. Mental Status/Objective Patient Orientation: Person, Place, Time, Situation ADL-Treatment Therapy Code Descriptions/Definitions Functional [place] Measure: 0=Not Assessed/NA 4=Minimal Assistance 1=Total Assistance 5=Supervision or Setup 2=Maximal Assistance 6=Modified [place] 3=Moderate Assistance 7=Complete IndependenceSCALE: Activities may be completed with or without assistive devices. 9-Phtlzsqkkd-fowcxad completes the activity by him/herself with no assistance from a helper. 5-Set-up or Clean-up Assistance-helper sets up or cleans up; patient completes activity. [place] assists only prior to or following the activity. 4-Supervision or Touching Assistance-helper provides verbal cues and/or touching/steadying and/or contact guard assistance as patient completes activity. Assistance may be provided throughout the activity or intermittently. 3-Partial/Moderate Assistance-helper does LESS THAN HALF the effort. [place] lifts, holds or supports trunk or limbs, but provides less than half the effort. 2-Substantial/Maximal Assistance-helper does MORE THAN HALF the effort. [place] lifts or holds trunk or limbs and provides more than half the effort. 3-Rifrnmeat-eierck does ALL the effort. Patient does none of the effort to complete the activity. Or, the assistance of 2 or more helpers is required for the patient to complete the activity. If activity was not attempted, code reason: 7-Patient Refused. 9-Not Applicable-not attempted and the patient did not perform the activity before the current illness, exacerbation or injury. 10-Not Attempted due to Environmental Limitations-(lack of equipment, weather restraints, etc.). 88-Not Attempted due to Medical Conditions or Safety Concerns. Other Treatment Pt seated in recliner at the start of tx. Pt participated in BUE exercise with low resistance theraband to increase BUE gross motor strength for 10x each of the following; shoulder flexion, and elbow extension/flexion. Pt required demonstration of the exercise first and then required moderate hand over hand assist to complete exercise. Pt also required moderate cues to stay on task. OT gave pt handout on exercises and stated that OT would like her to do exercises throughout the day 2-3x a day doing 10x each. Pt verbalized understanding of exercises. Pt in recliner at end of tx with call light in reach and all needs met. Education OT Patient Education: Energy conservation, Exercise program, Modified ADL techniques, Progress toward Goal/Update tx plan, Purpose of tx/functional activities, Rehab process Teaching Recipient: Patient Teaching Methods: Demonstration, Handout, Discussion Response to Teaching: Verbalize Understanding OT Short Term Goals Short Term Goals Time Frame: Sep 26, 2020 Eatin Oral hygiene: 5 Toileting hygiene: 2 Shower/bathe self: 3 Upper body dressin Lower body dressin OT Shelter Goals Block Greaser Goals Time Frame: Oct 10, 2020 Eating (QC): 6 Oral Hygiene (QC): 6 Toileting Hygiene (QC): 4 Shower/Bathe Self (QC): 4 Upper Body Dressing (QC): 5 Lower Body Dressing (QC): 4 On/Off Footwear (QC): 4 Additional Goals: 1-Demonstrate ADL Tasks, 2-Verbalize Understanding, 3- ImproveStrength/Gilda 1=Demonstrate adherence to instructed precautions during ADL tasks. 2=Patient will verbalize/demonstrate understanding of assistive devices/modifications for ADL. 3=Patient will improve strength/tolerance for activity to enable patient to perform ADL's. OT Education/Plan Problem List/Assessment Assessment: Decreased Activ Tolerance, Decreased UE Strength, Impaired I ADL's, Impaired Self-Care Skills Discharge Recommendations Plan/Recommendations: Continue POC Treatment Plan/Plan of Care Patient would benefit from OT for education, treatment and training to promote independence in ADL's, mobility, safety and/or upper extremity function for ADL's. Plan of Care: ADL Retraining, Functional Mobility, UE Funct Exercise/Act Treatment Duration: Oct 10, 2020 Frequency: 5 times per week Estimated Hrs Per Day: .25 hour per day Rehab Potential: Fair Time/GCodes Start Time: 13:35 Stop Time: 13:55 Total Time Billed (hr/min): 20 Billed Treatment Time 1, EX (20) DOUG BRINK OT Sep 18, 2020 14:16
--- NOTE | 2020-09-18 14:30 | Physical Therapy Daily Note ---
PT Daily Note-Current Subjective Patient is very agreeable to participate with PT. Mental Status Patient Orientation: Normal For Age Transfers SCALE: Activities may be completed with or without assistive devices. 6-Lrwwojjqtc-bdghpjo completes the activity by him/herself with no assistance from a helper. 5-Set-up or Clean-up Assistance-helper sets up or cleans up; patient completes activity. [place] assists only prior to or following the activity. 4-Supervision or Touching Assistance-helper provides verbal cues and/or touching/steadying and/or contact guard assistance as patient completes activity. Assistance may be provided throughout the activity or intermittently. 3-Partial/Moderate Assistance-helper does LESS THAN HALF the effort. [place] lifts, holds or supports trunk or limbs, but provides less than half the effort. 2-Substantial/Maximal Assistance-helper does MORE THAN HALF the effort. [place] lifts or holds trunk or limbs and provides more than half the effort. 5-Xtjyluvjj-kjclni does ALL the effort. Patient does none of the effort to complete the activity. Or, the assistance of 2 or more helpers is required for the patient to complete the activity. If activity was not attempted, code reason: 7-Patient Refused. 9-Not Applicable-not attempted and the patient did not perform the activity before the current illness, exacerbation or injury. 10-Not Attempted due to Environmental Limitations-(lack of equipment, weather restraints, etc.). 88-Not Attempted due to Medical Conditions or Safety Concerns. Sit to Stand (QC): 3 Weight Bearing Right Lower Extremity: Right Weight Bearing/Tolerated Left Lower Extremity: Left Weight Bearing/Tolerated Gait Training Does the Patient Walk?: Yes Distance: 150' Walk 10 feet (QC): 3 Walk 50 ft with 2 Turns(QC): 3 Walk 150 ft (QC): 3 Gait Assistive Device: FWW trunk flexed posture Exercises Seated Therapy Exercises: Ankle pumps, Long arc quads Seated Reps: 15 Assessment Patient improving with treatment plan. Plan transfer to FLU in a.m. for td nued therapy. PT Short Term Goals Short Term Goals Time Frame: Oct 01, 2020 Roll Left & Right: 3 Sit to lyin Lying to sitting on side of be: 3 Sit to stand: 3 Chair/xuy-sz-wvhhu transfer: 3 Toilet transfer: 3 Walk 10 feet: 3 Walk 50 feet with two turns: 3 PT Alf Goals Drafting Technician Goals PT Alf Goals Time Frame: Oct 18, 2020 Roll Left & Right (QC): 5 Sit to Lying (QC): 5 Lying-Sitting on Side/Bed(QC): 5 Sit to Stand (QC): 5 Chair/Ldu-vq-Zbkct Xfer(QC): 5 Toilet Transfer (QC): 5 Does the Patient Walk: Yes Walk 10 feet (QC): 5 Walk 50ft with 2 Turns (QC): 5 Walk 150 ft (QC): 5 1 Step (curb) (QC): 5 4 Steps (QC): 4 PT Plan Treatment/Plan Treatment Plan: Continue Plan of Care Treatment Plan: Bed Mobility, Education, Functional Activity Gilda, Functional Strength, Gait, Safety, Therapeutic Exercise, Transfers Treatment Duration: Oct 18, 2020 Frequency: 6 times per week Estimated Hrs Per Day: .5 hour per day Patient and/or Family Agrees t: Yes Time/GCodes Time In: 1356 Time Out: 1406 Total Billed Treatment Time: 10 Total Billed Treatment 1 visit FA 10 min TOVA MONTERO PT Sep 18, 2020 14:30
[2020-09-18] MEDS ORDERED: NITROGLYCERIN 2% OINT 1 GM UNIT DOSE PACKET TOP PRN (17:00)
[2020-09-18] MEDS: warFARin 4 MG (COUMADIN) TAB PO SCH (17:29)
[2020-09-19] MEDS: IPRATROPIUM INHALER (ATROVENT) 12.9 GM INH SCH ×2 (01:46→06:46)
[2020-09-19] MEDS: RT-ALBUTEROL INHALER HFA (VENTOLIN HFA) 18 GM IH SCH ×2 (01:46→06:46)
[2020-09-19 04:28] VITALS: BP 164/70
--- NOTE | 2020-09-19 05:29 | Pulmonary Progress Note ---
Subjective Time Seen by a Provider: 05:24 Subjective/Events-last exam No complications noted. Sepsis Event Evaluation Height, Weight, BMI Height: 5'9.00" Weight: 171lbs. 9.0oz. 77.901275tq; 26.12 BMI Method:Stated Exam Exam Vital Signs Date Time Temp Pulse Resp B/P (MAP) Pulse Ox O2 Delivery O2 Flow Rate FiO2 09/19/20 04:28 36.6 62 20 164/70 (101) 91 High Flow N/C 1.00 09/19/20 01:53 96 Room Air 09/19/20 01:46 96 Room Air 09/19/20 01:00 63 09/18/20 23:28 37.0 62 20 136/64 (88) 90 High Flow N/C 1.00 09/18/20 20:40 Room Air 09/18/20 19:41 37.0 66 18 136/64 (88) 92 Room Air 09/18/20 19:00 60 09/18/20 18:37 94 Room Air 09/18/20 18:36 60 18 148/66 (93) Room Air 09/18/20 18:34 92 Room Air 09/18/20 16:00 37.0 68 18 188/81 (116) 94 Room Air 09/18/20 13:00 74 09/18/20 11:45 36.7 66 20 136/69 (91) 96 Room Air 09/18/20 09:00 Room Air 09/18/20 08:00 36.8 64 18 172/77 (108) 94 Room Air 09/18/20 07:10 75 I & O 09/19/20 07:00 Intake Total 1810 ml Output Total 2225 ml Balance -415 ml Height & Weight Height: 5'9.00" Weight: 171lbs. 9.0oz. 77.517411dr; 26.12 BMI Method:Stated General Appearance: No Apparent Distress, Chronically ill HEENT: PERRL/EOMI, Pharynx Normal Neck: Normal Inspection, Supple Respiratory: Lungs Clear, No Respiratory Distress Cardiovascular: Regular Rate, Rhythm, Systolic Murmur Capillary Refill: Less Than 3 Seconds Extremity: Normal Inspection, Non Tender Neurologic/Psychiatric: Alert, Oriented x3, Normal Mood/Affect Skin: Normal Color, Warm/Dry Results Lab Laboratory Tests 09/17/20 05:45 09/18/20 05:20 Assessment/Plan Assessment/Plan Acute respiratory failure --much improved -1 liter NC -- Continue to titrate down -COVID is negative pulmonary edema with small bilateral pleural effusions and mild hypoxia -Give 40mg of Lasix x 1 -Give 60meq of K dur with Lasix Pneumonia L>R - resolving -s/p Merrem -MRSA swab is negative -Influenza is negative HTN Right ureteral Obstruction s/p surgery -Urology is following Acute on chronic renal failure AFib HX -Coumadin therapy Hypothyroidism Continue levothyroxine ZHANG HERCULES DO Sep 19, 2020 05:29
[2020-09-19] MEDS ORDERED: FUROSEMIDE 40 MG/4 ML INJ (LASIX) IVP ONE (05:30)
[2020-09-19] MEDS ORDERED: FUROSEMIDE 40 MG (LASIX) TAB PO ONE (05:45)
[2020-09-19 06:15] LABS: BASOPHILS # (AUTO) 0.1 10^3/uL (0.0-0.1); BASOPHILS % (AUTO) 1 % (0-10); EOSINOPHILS # (AUTO) 0.3 10^3/uL (0.0-0.3); EOSINOPHILS % (AUTO) 3 % (0-10); HEMATOCRIT 32 % (35-52); HEMOGLOBIN 9.9 g/dL (11.5-16.0); LYMPHOCYTES # (AUTO) 1.8 10^3/uL (1.0-4.0); LYMPHOCYTES % (AUTO) 18 % (12-44); MEAN CORPUSCULAR HEMOGLOBIN 30 pg (25-34); MEAN CORPUSCULAR HGB CONC 31 g/dL (32-36); MEAN CORPUSCULAR VOLUME 96 fL (80-99); MEAN PLATELET VOLUME 10.7 fL (9.0-12.2); MONOCYTES # (AUTO) 1.1 10^3/uL (0.0-1.0); MONOCYTES % (AUTO) 11 % (0-12); NEUTROPHILS # (AUTO) 6.9 10^3/uL (1.8-7.8); NEUTROPHILS % (AUTO) 68 % (42-75); PLATELET COUNT 279 10^3/uL (130-400); WHITE BLOOD COUNT 10.2 10^3/uL (4.3-11.0)
[2020-09-19 06:25] LABS: CHLORIDE 101 MMOL/L (98-107); INR 1.6 (0.8-1.4); POTASSIUM 3.6 MMOL/L (3.6-5.0); PROTHROMBIN TIME PATIENT 19.4 SEC (12.2-14.7); SODIUM 141 MMOL/L (135-145)
[2020-09-19 06:26] LABS: CALCIUM 8.1 MG/DL (8.5-10.1)
[2020-09-19] MEDS: hydrALAZINE (APRESOLINE) 25 MG TAB PO SCH (06:26)
[2020-09-19 06:27] LABS: GLUCOSE 93 MG/DL (70-105)
[2020-09-19 06:28] LABS: CARBON DIOXIDE 30 MMOL/L (21-32)
[2020-09-19 06:30] LABS: PHOSPHORUS 2.5 MG/DL (2.3-4.7)
[2020-09-19 06:31] LABS: BUN/CREATININE RATIO 14; CREATININE SERUM 0.85 MG/DL (0.60-1.30); GFR ESTIMATED > 60
[2020-09-19 06:33] LABS: MAGNESIUM 1.8 MG/DL (1.6-2.4)
[2020-09-19 07:15] VITALS: BP 136/63
[2020-09-19] MEDS ORDERED: KCL 20 MEQ TAB (K-DUR) PO NR (08:00)
--- NOTE | 2020-09-19 08:33 | Discharge Summary ---
Diagnosis/Chief Complaint Date of Admission Sep 08, 2020 at 13:50 Date of Discharge Discharge Date: Sep 19, 2020 Admission Diagnosis Acute kidney injury superimposed on chronic kidney disease Primary Care Osman Prather MD Discharge Diagnosis (1) Acute respiratory failure with hypoxia Status: Acute (2) Acute kidney injury superimposed on chronic kidney disease Status: Acute (3) Obstruction of right ureter Status: Acute (4) Hypertensive emergency Status: Resolved (5) Acute heart failure with preserved ejection fraction (HFpEF) Status: Acute (6) On Coumadin for atrial fibrillation Status: Chronic (7) Paroxysmal A-fib Status: Chronic (8) Hypothyroidism Status: Chronic (9) HTN (hypertension) Status: Chronic (10) Hydroureteronephrosis Status: Acute Discharge Summary Procedures/Consulations Dr Zayas- Urology Dr Banda- Cardiology Discharge Physical Exam Allergies: Coded Allergies: Penicillins (Verified Allergy, Unknown, 11/07/18) pineapple (Verified Allergy, Unknown, 11/09/18) Vitals & I&Os Vital Signs Date Time Temp Pulse Resp B/P (MAP) Pulse Ox O2 Delivery O2 Flow Rate FiO2 09/19/20 09:55 36.7 72 20 136/63 94 Room Air 09/19/20 07:15 09/15/20 10:48 30 General Appearance: No Apparent Distress, WD/WN Respiratory: Lungs Clear, No Respiratory Distress Cardiovascular: Regular Rate, Rhythm, No Murmur Neurologic/Psychiatric: Alert, Oriented x3 Hospital Course Pt was admitted due to septic shock due to UTI with obstructing kidney stone. She required short term ventilation and went to the OR for stent placement. She was treated with IV abx and did well. She was able to be liberated from the ventilation and completed a course of IV abx while in the hospital. 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 She was evaluated by IRU and was deemed an appropriate candidate for intensive therapy there. She was discharged to IRU for continued strengthening. Labs (last 24 hrs) Microbiology 09/10/20 Gram Stain - Final, Complete 09/10/20 Sputum Culture - Final, Complete No growth 09/10/20 Urine Culture - Final, Complete NO GROWTH 09/08/20 Blood Culture - Final, Complete No growth Patient resulted labs reviewed. Pending Labs Imaging: Reviewed Imaging Report Discussion & Recommendations Discharge Planning: >30 minutes discharge planning Discharge Home Medications: Active Scripts Active Reported Atorvastatin Calcium 20 Mg Tablet 20 Mg PO DAILY Carvedilol 12.5 Mg Tablet 12.5 Mg PO BID Dilt-Xr (Diltiazem HCl) 240 Mg Cap.er.deg 240 Mg PO DAILY K-Tab ER (Potassium Chloride) 10 Meq Tablet.er 20 Meq PO DAILY TAKES 2 (10MEQ) TABS Gabapentin 100 Mg Capsule 200 Mg PO DAILY TAKES 2 (100MG) CAPSULES Warfarin Sodium 4 Mg Tablet 6 Mg PO TUE,TUE TAKES 1 & 1/2 (4MG) TABLET Warfarin Sodium 4 Mg Tablet 4 Mg PO HERNANDEZ,MO,WE,,SA Furosemide 20 Mg Tablet 20 Mg PO DAILY Amiodarone HCl 200 Mg Tablet 200 Mg PO DAILY Levothyroxine Sodium 75 Mcg Tablet 75 Mcg PO DAILY Instructions to patient/family Please see electronic discharge instructions given to patient. LEONEL TUTTLE MD Sep 19, 2020 08:33
[2020-09-19] MEDS: amLODIPine 10 MG (NORVASC) TAB PO SCH (08:57)
[2020-09-19] MEDS: CARVEDILOL 12.5 MG (COREG) TABLET PO SCH (08:57)
[2020-09-19] MEDS: LEVOTHYROXINE 75 MCG (LEVOTHROID) TABLET PO SCH (08:57)
[2020-09-19] MEDS: SENNOSIDES 8.6 MG (SENOKOT) TAB PO SCH (09:18)
[2020-09-19] MEDS: DOCUSATE SODIUM 100 MG (COLACE) CAP PO SCH (09:18)
[2020-09-19 09:55] VITALS: BP 136/63
[2020-09-19] MEDS ORDERED: warFARin 4 MG (COUMADIN) TAB PO SCH (18:00)
--- NOTE | 2020-09-23 04:29 | Physician Query Clarification ---
PQ-Uncertain Diagnosis Admission/Discharge Admission Date: Sep 08, 2020 at 13:50 Discharge Date: Sep 19, 2020 at 09:55 LEONEL Parish MD The medical record reflects the following clinical scenario: History/Risk Factors: 79 y/o female patient presented with acute kidney injury superimposed of chronic kidney injury, hydronephrosis undergoes ureteral dilation and stone extraction. Hand P, 09/08: Acute kidney injury superimposed of chronic kidney injury, hydronephrosis Progress notes, 09/13: Acute kidney injury superimposed on chronic kidney disease, obstruction of right ureter, hydroureteronephrosis Discharge summary, 09/19: Patient was admitted due to septic shock due to UTI with obstructing kidney stone. She required short term ventilation and went to the OR for stent placement. She was treated with IV abx and did well. Clinical Findings: WBC-11.7 H, Treatment:IV Antibiotics Question: Is Septic shock a clinically valid diagnosis? Septic shock was documented in the Discharge summary, 09/19 with no further documentation in the medical record. Please document a response in Progress Note or Discharge Summary. 1. Yes, clinically valid, condition resolved. 2. No, condition ruled out. 3. Other, with explanation of clinical findings. 4. Undetermined, no explanation for clinical findings. PHYSICIAN RESPONSE Diagnosis clinically valid: Yes, Conditon resolved (She was on Levophed on 09/10) Please remember a lack of response to the above will prompt a phone page by CDI/Coding staff. In responding to this query, please exercise your independent professional judgment. The purpose of this communication is to more accurately reflect the complexity of your patients condition. The fact that a question is asked does not imply that any particular answer is desired or expected. Thank you for your timely response to this clarification. Requestors name: [ ] Phone # [ ] THIS PHYSICIAN QUERY FORM IS A PERMANENT PART OF THE MEDICAL RECORD YOLANDA LANDA Sep 23, 2020 04:29 LEONEL TUTTLE MD Sep 24, 2020 12:35
== END 2020-09-19 09:55 | DRG 853 ==
LOC: EDUNIT# 10:35 → ER 10:37 → 4TH 13:50 → ICU 09-09 02:33 → 4TH 09-16 09:54
PROVIDERS: ADMIT Internal Medicine; ATTEND Internal Medicine
PROC: 0T768DZ Dilation of Right Ureter with Intraluminal Device, Via Natural or Artificial Opening Endoscopic (ICD-10-PCS; 2020-09-10)
PROC: BT1DYZZ Fluoroscopy of Right Kidney, Ureter and Bladder using Other Contrast (ICD-10-PCS; 2020-09-10)
PROC: 0TC68ZZ Extirpation of Matter from Right Ureter, Via Natural or Artificial Opening Endoscopic (ICD-10-PCS; principal; 2020-09-10 08:56)
DX: A41.9 Sepsis, unspecified organism (principal); J96.01 Acute respiratory failure with hypoxia; I50.31 Acute diastolic (congestive) heart failure; R65.21 Severe sepsis with septic shock; J18.9 Pneumonia, unspecified organism; N17.9 Acute kidney failure, unspecified; I16.1 Hypertensive emergency; N39.0 Urinary tract infection, site not specified; N13.1 Hydronephrosis with ureteral stricture, not elsewhere classified; N18.9 Chronic kidney disease, unspecified; N13.5 Crossing vessel and stricture of ureter without hydronephrosis; I48.0 Paroxysmal atrial fibrillation; Z79.01 Long term (current) use of anticoagulants; E03.9 Hypothyroidism, unspecified; I11.0 Hypertensive heart disease with heart failure; Z88.0 Allergy status to penicillin; Z95.5 Presence of coronary angioplasty implant and graft; Z95.0 Presence of cardiac pacemaker; Z20.822 Contact with and (suspected) exposure to COVID-19; I95.9 Hypotension, unspecified
CPT/HCPCS: 36415; 36569; 70450; 71045; 74177; 76000; 76937; 80048; 80053; 81000; 82805; 82962; 83605; 83735; 83880; 84100; 84145; 84478; 84484; 85007; 85025; 85027; 85379; 85610; 85730; 86141; 87040; 87070; 87081; 87088; 87205; 87449; 87635; 87804; 87899; 93005; 93306; 94002; 94003; 94640; 94660; 94760; 94799; 96374

== ENCOUNTER 2020-09-19 09:30 | Inpatient (IN) | payer MEDICARE ==
[~2020-09-19] VITALS: Ht 175 cm; Wt 79.3 kg
[2020-09-19 09:30] VITALS: BP 147/67
[~2020-09-19 09:30] MED LIST changes: +ACETAMINOPHEN 500 MG TAB (TYLENOL) PO PRN; +ALPRAZolam 0.25 MG (XANAX) TAB PO PRN; +BISACODYL 10 MG SUPP (DULCOLAX) PR PRN; +CALCIUM CARBONATE 500 MG (TUMS) TAB.CHEW PO PRN; +DILT240C47 PO; +DOCUSATE SODIUM 100 MG (COLACE) CAP PO PRN; +DOCUSATE SODIUM 100 MG (COLACE) CAP PO SCH; +FLEET ENEMA ADULT 1 EA BTL PR PRN; +LACTULOSE SYRUP 10GM/15ML (ENULOSE) 30ML UDC PO PRN; +LOPERAMIDE 2 MG (IMODIUM) TABLET PO PRN; +MELATONIN 3 MG TABLET PO PRN; +ONDANSETRON 4 MG (ZOFRAN) ORAL DISSOLVE TAB PO PRN; +POTA10TA PO; +diphenhydrAMINE 25 MG TAB (BENADRYL) PO PRN; +guaiFENesin/CODEINE (ROBITUSSIN AC) 10ML UDC PO PRN
[2020-09-19] MEDS ORDERED: NITROGLYCERIN 2% OINT 1 GM UNIT DOSE PACKET TOP PRN (10:30)
[2020-09-19] MEDS ORDERED: ONDANSETRON 4 MG (ZOFRAN) ORAL DISSOLVE TAB PO PRN (10:30)
[2020-09-19] MEDS ORDERED: MELATONIN 3 MG TABLET PO PRN (10:30)
[2020-09-19] MEDS ORDERED: BISACODYL 10 MG SUPP (DULCOLAX) PR PRN (10:30)
[2020-09-19] MEDS ORDERED: ACETAMINOPHEN 325 MG TABLET PO PRN (10:30)
[2020-09-19] MEDS ORDERED: polyethylene glycoL POWDER 17 GM (MIRALAX) PACK PO PRN (10:30)
[2020-09-19] MEDS ORDERED: ANTACID SUSP 30 ML UDC (MYLANTA) PO PRN (10:30)
[2020-09-19] MEDS ORDERED: CATHETER FLUSH 10 ML SYR IV PRN (10:30)
[2020-09-19] MEDS ORDERED: RT-ALBUTEROL INHALER HFA (VENTOLIN HFA) 18 GM IH PRN (10:30)
[2020-09-19] MEDS: IPRATROPIUM INHALER (ATROVENT) 12.9 GM INH SCH ×4 (11:17→22:12)
[2020-09-19] MEDS ORDERED: RT-ALBUTEROL INHALER HFA (VENTOLIN HFA) 18 GM IH SCH (11:30)
[2020-09-19] MEDS: SENNA W/DOCUSATE (SENOKOT S) TABLET PO SCH ×2 (11:48→21:32)
[2020-09-19] MEDS: polyethylene glycoL POWDER 17 GM (MIRALAX) PACK PO SCH ×2 (11:49→21:32)
--- NOTE | 2020-09-19 12:05 | Occupational Therapy Eval ---
OT Evaluation-General/PLF Medical Diagnosis Admission Date Sep 19, 2020 at 09:30 Medical Diagnosis: debility post-ventilation Onset Date: Sep 10, 2020 Therapy Diagnosis Therapy Diagnosis: Decreased ADL status Height/Weight Height (Feet): 5 Height (Inches): 9.00 Weight (Pounds): 171 Weight (Ounces): 9.0 Weight Bear Status Weight Bearing Restriction: Full Weight Bearing Referral Physician: Bandar Referral Reason: Activity Tolerance, Self Care, Evaluation/Treatment, Strengthening/ROM Medical History Pertinent Medical History: Atrial Fib, HTN Additional Medical History pacemaker, HTN, a fib Current History Pt admits 2/3 with recent fall, h/o recent falls. Pt found to have SIVA with superimposed chronic kidney disease and obstruction of R ureter. Hypertensive e mergency. Intubated 09/10- morning of 09/12. PNA. ARU 09/19. Reviewed History: Yes Social History Home: Single Level Current Living Status: Significant Other Entry Into Home: Stairs With Railing Steps Into Home: 2 Steps Inside Home: 0 ADL-Prior Level of Function SCALE: Activities may be completed with or without assistive devices. 7-Ifyexpspqz-bfwtzwl completes the activity by him/herself with no assistance from a helper. 5-Set-up or Clean-up Assistance-helper sets up or cleans up; patient completes activity. [place] assists only prior to or following the activity. 4-Supervision or Touching Assistance-helper provides verbal cues and/or touching/steadying and/or contact guard assistance as patient completes activity. Assistance may be provided throughout the activity or intermittently. 3-Partial/Moderate Assistance-helper does LESS THAN HALF the effort. [place] lifts, holds or supports trunk or limbs, but provides less than half the effort. 2-Substantial/Maximal Assistance-helper does MORE THAN HALF the effort. [place] lifts or holds trunk or limbs and provides more than half the effort. 3-Knolpxwdg-xkhddc does ALL the effort. Patient does none of the effort to complete the activity. Or, the assistance of 2 or more helpers is required for the patient to complete the activity. If activity was not attempted, code reason: 7-Patient Refused. 9-Not Applicable-not attempted and the patient did not perform the activity before the current illness, exacerbation or injury. 10-Not Attempted due to Environmental Limitations-(lack of equipment, weather restraints, etc.). 88-Not Attempted due to Medical Conditions or Safety Concerns. ADL PLOF Comments Pt states IND with walker at home. Self Care: Independent Functional Cognition: Independent DME/Equipment: Bath Chair, Grab Bars, Shower DME/Equipment Comments walker, folder operator, sc, walk in shower, gbs. 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 OT Current Status Subjective Pt AxO. Pt is brought from [facility] to ARU by OT. Pt denies pain. Agrees to tx. [place], requiring increased volume (h/a at home). Mental Status/Objective Patient Orientation: Person, Place, Situation Attachments: Miles Catheter, Telemetry Current Glasses/Contacts: Yes Hearing Aids: No (has at home, not here.) Dentures/Partials: Yes Hand Dominance: Right Upper Extremity ROM WFL BUE Upper Extremity Coordination WFL BUE Upper Extremity Sensation WFL BUE Upper Extremity Strength WFL BUE Edema: slight BLE ADL-Treatment Eating (QC): 6 Oral Hygiene (QC): 6 (IND seated in chair.) Shower/Bathe Self (QC): 3 (min A for bottom. CGA in stance at gbs. SC throughout) Upper Body Dressing (QC): 5 (s/u) Lower Body Dressing (QC): 3 (mod A- assist with threading catheter and RLE, then pt able to complete LLE threading in sit, sit to stand with CGA and completes hike with min A (fatigue). ) On/Off Footwear (QC): 2 (max A at this time. ) Toileting Hygiene (QC): 3 (mod A during showering. Pt able to reach to bottom, requires assist spreading bottom for cleaning and for thoroughness.) Other Treatments OT individual eval/ treat: 1393-6962: Pt AxO. Pt bed mob with min A to EOB. Pt completes pant donning. Sit to stand min A to SPT to w/c with walker. Pt e ducated on OT/ PT/ PERIOPERATIVE ASSISTANT role and ARU expectations. Pt explains home s/u and OT educates pt on POC. Pt agrees to rehab. Pushed to ARU with w/c. Completion of evaluation in room, introduction to room. SPT to recliner with min A sit to stand from w/c, CGA SPT to recliner. LEs elevated, call light in reach, pt completes phone call to s/o with IND. Left in recliner with all needs met. OT/ PT co-treat: [id number]: OT addresses UE movement, problem solving/ safety awareness, ADLs while PT addresses fx transfers, gait, mobility, LE movement. Pt with PT upon OT entry. Pt completes ambulation task/ step/ across uneven surface CGA. Pt sits EOM, completes bed mobility. States slight dizziness upon supine to sit, stating this has not happened in a few days. Ambulation with walker/ CGA to room. Readily agrees to shower, completing as outlined. Pt states fatigue end of tx, stating she is unable to complete socks and pant hike due to fatigue. CGA to recliner, food s/u in front of pt, all needs met, call light in reach. Education OT Patient Education: Correct positioning, Modified ADL techniques, Purpose of tx/functional activities, Rehab process, Safety issues, Transfer techniques Teaching Recipient: Patient Teaching Methods: Demonstration, Discussion Response to Teaching: Verbalize Understanding, Return Demonstration, Reinforcement Needed OT Short Term Goals Short Term Goals Toileting hygiene: 4 Shower/bathe self: 4 Upper body dressin Lower body dressin Putting on/taking off footwear: 3 OT Preschool Assistant Goals Preschool Assistant Goals Time Frame: Oct 03, 2020 Eating (QC): 6 Oral Hygiene (QC): 6 Toileting Hygiene (QC): 6 Shower/Bathe Self (QC): 6 Upper Body Dressing (QC): 6 Lower Body Dressing (QC): 6 On/Off Footwear (QC): 6 Additional Goals: 1-Demonstrate ADL Tasks, 2-Verbalize Understanding, 3- ImproveStrength/Gilda 1=Demonstrate adherence to instructed precautions during ADL tasks. 2=Patient will verbalize/demonstrate understanding of assistive devices/modifications for ADL. 3=Patient will improve strength/tolerance for activity to enable patient to perform ADL's. OT Education/Plan Problem List/Assessment Assessment: Decreased Activ Tolerance, Dependent Transfers, Edema, Impaired Bed Mobility, Impaired Funct Balance, Impaired I ADL's, Impaired Self-Care Skills Discharge Recommendations Plan/Recommendations: Continue POC Therapy Discharge Recommendati: Home & Family Treatment Plan/Plan of Care Treatment,Training & Education: Yes Patient would benefit from OT for education, treatment and training to promote independence in ADL's, mobility, safety and/or upper extremity function for A DL's. Plan of Care: ADL Retraining, Caregiver Training, Concurrent Therapy, Functional Mobility, Group Exercise/Act as Ind, UE Funct Exercise/Act Treatment Duration: Oct 03, 2020 Frequency: At least 5 of 7 days/Wk (IRF) Estimated Hrs Per Day: 1.5 hours per day Agreement: Yes Rehab Potential: Good Time/GCodes Start Time: 09:30 (1110) Stop Time: 10:00 (1200) Total Time Billed (hr/min): 80 (30+50) Billed Treatment Time 1, EVM (10), FA (20)= 30 1, EX (15), ADL (35)= 50 (OT/ PT co-treat: [id number]: OT addresses UE movement, problem solving/ safety awareness, ADLs while PT addresses fx transfers, gait, mobility, LE movement. ) Total: 80 JAMES WHITEHEAD OTR Sep 19, 2020 12:05
--- NOTE | 2020-09-19 13:24 | Physical Therapy Evaluation ---
PT Evaluation-General Medical Diagnosis Admission Date Sep 19, 2020 at 09:30 Medical Diagnosis: debility post-ventilation Onset Date: Sep 10, 2020 Therapy Diagnosis Therapy Diagnosis: impaired mobility, strength, endurance Height/Weight Height (Feet): 5 Height (Inches): 9.00 Weight (Pounds): 171 Weight (Ounces): 9.0 Precautions Precautions/Isolations: Fall Prevention, Standard Precautions Referral Physician: Bandar Reason for Referral: Evaluation/Treatment Medical History Pertinent Medical History: Atrial Fib, HTN Reviewed History: Yes Social History Home: Single Level Current Living Status: Significant Other Entry Into Home: Stairs With Railing PT Steps Into Home: 2 PT Steps Inside Home: 0 Prior Prior Level of Function SCALE: Activities may be completed with or without assistive devices. 3-Qvospiddrb-tpgxqpi completes the activity by him/herself with no assistance from a helper. 5-Set-up or Clean-up Assistance-helper sets up or cleans up; patient completes activity. [place] assists only prior to or following the activity. 4-Supervision or Touching Assistance-helper provides verbal cues and/or touching/steadying and/or contact guard assistance as patient completes activity. Assistance may be provided throughout the activity or intermittently. 3-Partial/Moderate Assistance-helper does LESS THAN HALF the effort. [place] lifts, holds or supports trunk or limbs, but provides less than half the effort. 2-Substantial/Maximal Assistance-helper does MORE THAN HALF the effort. [place] lifts or holds trunk or limbs and provides more than half the effort. 8-Rixqzmkug-pfkuyt does ALL the effort. Patient does none of the effort to complete the activity. Or, the assistance of 2 or more helpers is required for the patient to complete the activity. If activity was not attempted, code reason: 7-Patient Refused. 9-Not Applicable-not attempted and the patient did not perform the activity before the current illness, exacerbation or injury. 10-Not Attempted due to Environmental Limitations-(lack of equipment, weather restraints, etc.). 88-Not Attempted due to Medical Conditions or Safety Concerns. Bed Mobility: 6 Transfers (B,C,W/C): 6 Gait: 6 Stairs: 6 Indoor Mobility (Ambulation): Independent Stairs: Independent Prior Devices Use: Walker PT Evaluation-Current Subjective Patient in recliner pre tx, agrees to PT, has no complaints of pain. Will be co-treating with OT for part of tx due to poor patient mobility, strength, endurance, coordinate UE and LE during activity, safety and reduce risk of falls. Pt/Family Goals to be independent at home Objective Patient Orientation: Person, Place, Situation Attachments: Miles Catheter ROM/Strength ROM Lower Extremities WNL Strength Lower Extremities LLE (hip flexion 3+/5, knee flexion 4/5, knee extension 4+/5, dorsiflexion 4+/5), RLE (hip flexion 3+/5, knee flexion 4/5, knee extension 4+/5, dorsiflexion 4+/5) Sensory Hearing: Functional Hand Dominance: Right Sensation Right Lower Extremit: Intact Sensation Left Lower Extremity: Intact Transfers Roll Left & Right (QC): 6 Sit to Lying (QC): 3 Lying to Sitting/Side of Bed(Q: 3 Sit to Stand (QC): 4 Chair/Mhj-ry-Abjfw Xfer(QC): 4 Toilet Transfer (QC): 4 Car Transfer (QC): 3 Patient performs bed mobility with independence, supine to sit with mod assist, sit to supine with min assist, sit <-> stand CGA, transfers CGA, car transfer min assist. Patient needs occasional cues for hand placement and safety. Gait Does the Patient Walk?: Yes Mode of Locomotion: Walk Anticipated Mode of Locomotion: Walk Walk 10 feet (QC): 4 Walk 50 ft with 2 Turns(QC): 4 Walk 150 ft (QC): 4 Walking 10ft/uneven surface-QC: 4 Distance: 150', 75'x2 Gait Assistive Device: FWW Comments/Gait Description Patient can ambulate 150' with a rolling walker with CGA (including 50' with at least 2 turns of 90 degrees and 10' over an uneven surface). Patient ambulates slowly, has some unsteadiness but can self correct, needs cues not to slump. Wheelchair Training Does the Pt Use a Wheelchair?: No Wheel 50 ft with 2 turns (QC): 9 Wheel 150 ft (QC): 9 Stairs #of Steps: 1 1 Step (curb) (QC): 3 4 Steps (QC): 88 12 Steps (QC): 88 Walking Assistive Device: Walker Patient can go up and down 1 step using a rolling walker with min assist, cues for foot placement and safe positioning. Balance Sitting Static: Normal Sitting Dynamic: Normal Standing Static: Fair Standing Dynamic: Fair Picking up an Object (QC): 4 Treatment PT performed bed mobility and transfer training, ambulation, stairs, assist with standing and positioning during bathing and dressing, OT worked on bathing and dressing and assisted with UE positioning and safety during activity. Assessment/Needs Patient has impaired mobility, strength, endurance. She needs CGA for transfers and ambulation. Patient in recliner post tx with nurse call, phone, tray, all needs met. Rehab Potential: Fair PT Short Term Goals Short Term Goals Time Frame: Sep 26, 2020 Roll Left & Right: 6 Sit to lyin Lying to sitting on side of be: 4 Sit to stand: 5 Chair/hfq-dp-cqijm transfer: 5 Walk 10 feet: 5 Walk 50 feet with two turns: 5 Walk 150 feet: 5 PT Water Aerobics Instructor Goals Correction Goals PT Water Aerobics Instructor Goals Time Frame: Oct 10, 2020 Roll Left & Right (QC): 6 Sit to Lying (QC): 6 Lying-Sitting on Side/Bed(QC): 6 Sit to Stand (QC): 6 Chair/Pvl-mf-Pmnyx Xfer(QC): 6 Toilet Transfer (QC): 6 Car Transfer (QC): 6 Does the Patient Walk: Yes Walk 10 feet (QC): 6 Walk 50ft with 2 Turns (QC): 6 Walk 150 ft (QC): 6 Walking 10ft on Uneven Surface: 6 1 Step (curb) (QC): 4 4 Steps (QC): 4 12 Steps (QC): 88 Picking up an Object (QC): 5 Wheel 50 feet with 2 turns (QC: 9 Wheel 150 feet: 9 PT Plan Problem List Problem List: Activity Tolerance, Functional Strength, Safety, Balance, Gait, Transfer, Bed Mobility, ROM Treatment/Plan Treatment Plan: Continue Plan of Care Treatment Plan: Bed Mobility, Education, Functional Activity Gilda, Functional Strength, Group Therapy, Gait, Safety, Therapeutic Exercise, Transfers Treatment Duration: Oct 10, 2020 Frequency: At least 5 of 7 days/Wk (IRF) Estimated Hrs Per Day: 1.5 hours per day Patient and/or Family Agrees t: Yes Safety Risks/Education Patient Education: Gait Training, Transfer Techniques, Steps, Correct Positioning, Safety Issues Teaching Recipient: Patient Teaching Methods: Demonstration, Discussion Response to Teaching: Reinforcement Needed Discharge Recommendations Plan Patient will perform bed mobility and transfer training,balance and endurance training, functional strengthening, stair training, gait training, and education, to improve functional mobility and independence at home. Therapy Discharge Recommendati: Home & Family Time/GCodes Time In: 1100 Time Out: 1200 Total Billed Treatment Time: 60 Total Billed Treatment 1 visit EVM 10' FA 50' PT eval from [id number], co-treat from [id number] SABRINA SHERMAN PT Sep 19, 2020 13:24
[2020-09-19] MEDS: ENOXAPARIN 100 MG/1 ML (LOVENOX) SYR SC SCH ×2 (13:34→23:45)
--- NOTE | 2020-09-19 14:29 | Physical Therapy Daily Note ---
PT Daily Note-Current Subjective Patient agrees to PT. No c/o. Mental Status Patient Orientation: Normal For Age Transfers SCALE: Activities may be completed with or without assistive devices. 6-Sxgcztwiga-woiwdjp completes the activity by him/herself with no assistance from a helper. 5-Set-up or Clean-up Assistance-helper sets up or cleans up; patient completes activity. [place] assists only prior to or following the activity. 4-Supervision or Touching Assistance-helper provides verbal cues and/or touching/steadying and/or contact guard assistance as patient completes activity. Assistance may be provided throughout the activity or intermittently. 3-Partial/Moderate Assistance-helper does LESS THAN HALF the effort. [place] lifts, holds or supports trunk or limbs, but provides less than half the effort. 2-Substantial/Maximal Assistance-helper does MORE THAN HALF the effort. [place] lifts or holds trunk or limbs and provides more than half the effort. 2-Qrozjxtjt-orpvar does ALL the effort. Patient does none of the effort to c omplete the activity. Or, the assistance of 2 or more helpers is required for the patient to complete the activity. If activity was not attempted, code reason: 7-Patient Refused. 9-Not Applicable-not attempted and the patient did not perform the activity before the current illness, exacerbation or injury. 10-Not Attempted due to Environmental Limitations-(lack of equipment, weather restraints, etc.). 88-Not Attempted due to Medical Conditions or Safety Concerns. Sit to Stand (QC): 4 Car Transfer (QC): 4 Gait Training Does the Patient Walk?: Yes Distance: 150' x 2 Walk 10 feet (QC): 4 Walk 50 ft with 2 Turns(QC): 4 Walk 150 ft (QC): 4 Gait Assistive Device: FWW VC's for body placement in FWW/functional gait sequence Exercises NuStep Minutes: 12 NuStep Workload: 4 (to improve strength and functional mobility) Assessment Patient progressing with treatment plan. Continue to increase activity as tolerated by patient. PT Short Term Goals Short Term Goals Time Frame: Sep 26, 2020 Roll Left & Right: 6 Sit to lyin Lying to sitting on side of be: 4 Sit to stand: 5 Chair/gyj-nv-xfpry transfer: 5 Walk 10 feet: 5 Walk 50 feet with two turns: 5 Walk 150 feet: 5 PT Logistics Planner Goals Intermediate Goals PT Intermediate Goals Time Frame: Oct 10, 2020 Roll Left & Right (QC): 6 Sit to Lying (QC): 6 Lying-Sitting on Side/Bed(QC): 6 Sit to Stand (QC): 6 Chair/Rkp-di-Dkkws Xfer(QC): 6 Toilet Transfer (QC): 6 Car Transfer (QC): 6 Does the Patient Walk: Yes Walk 10 feet (QC): 6 Walk 50ft with 2 Turns (QC): 6 Walk 150 ft (QC): 6 Walking 10ft on Uneven Surface: 6 1 Step (curb) (QC): 4 4 Steps (QC): 4 12 Steps (QC): 88 Picking up an Object (QC): 5 Wheel 50 feet with 2 turns (QC: 9 Wheel 150 feet: 9 PT Plan Treatment/Plan Treatment Plan: Continue Plan of Care Treatment Plan: Bed Mobility, Education, Functional Activity Gilda, Functional Strength, Group Therapy, Gait, Safety, Therapeutic Exercise, Transfers Treatment Duration: Oct 10, 2020 Frequency: At least 5 of 7 days/Wk (IRF) Estimated Hrs Per Day: 1.5 hours per day Patient and/or Family Agrees t: Yes Time/GCodes Time In: 1345 Time Out: 1415 Total Billed Treatment Time: 30 Total Billed Treatment 1 visit EX 12 min FA 18 min TOVA MONTERO PT Sep 19, 2020 14:29
--- NOTE | 2020-09-19 14:52 | ST Cognitive Linguistic Eval ---
Speech Evaluation-General Medical Diagnosis debility post-ventilation Onset Date: Sep 10, 2020 Therapy Diagnosis Therapy Diagnosis: Cognitive-communication Referral Referring Physician: Dr. Portillo Medical History Pertinent Medical History: Atrial Fib, HTN Reviewed History: Yes Social History Current Living Status: Significant Other Speech PLF-Current Status Prior Level of Function Patient lived in her home with her SO where she was independent for most of her daily needs. Subjective Patient was pleasant and cooperative with the cognitive assessment. Language Eval: Auditory Comprehends Simple Yes/No Ques: Functional Indent/Objects Multiple [place]: Functional Ident/Pics in Multiple [place]: Functional Follows 1-Step Commands: Functional Follows Complex Directions: Functional Follows General Conversations: Functional Language Eval: Verbal Language Completes Spontaneous Greeting: Functional Produces Auto, Serial Info: Functional Imitates Simple Words/Phrases: Functional Word Finding: Functional Requests Basic Needs: Functional States Basic Personal Info: Functional Expresses Complex Ideas: Functional Cognitive Patient Orientation Alert and oriented Objective Cognitive Domain Attention: WNL Memory: WNL Problem Solving: Functional Executive Functions: WNL Visuospatial Skills: WNL Composite Severity Rating: WNL Clock Drawing Severity Rating: WNL Objective Formal/Standardized Tests [facility] Mental Status ([facility]) Results 27/30, within normal range of function Oral Motor/Speech Production Within Normal Limits Impression Patient is a pleasant 79 y/o female who was admitted to the ARU due to debility. Patient was given the SLUMS with a score of 27/30. This score is within normal range of function and does not indicate a need for further ST services at this time. Speech Patient Assess Expression of Ideas/Wants: Expression (4) Understanding Verbal Content: Understands (4) Brief Interview-Mental Status: Yes Repetition of Three Words: Three (3) Temporal Orientation: Year: Correct (3) Temporal Orientation: Month: Accurate within 5 days(2) Temporal Orientation: Day: Correct (1) Recall : Wear to say "Sock": Yes,after cueing (1) Recall : Color: Yes, no cue required (2) Recall : Bed: Yes,after cueing (1) Memory/Recall Ability: Current season, That he or she is in a hsp/hsp unit Speech-Plan Patient/Family Goals Patient/Family Goals: Patient plans on returning to her home upon discharge. Treatment Plan Speech Therapy Treatment Plan: Discontinue ST Treatment Duration: Sep 19, 2020 Frequency: 1 time per week Estimated Hrs Per Day: .25 hour per day Rehab Potential: Fair Barriers to Learning: Patient's recent serious illness, age, debility Pt/Family Agrees to Plan: Yes Safety Risks/Education Teaching Recipient: Patient Teaching Methods: Discussion Response to Teaching: Verbalize Understanding Education Topics Provided: Safety within her room and communication of wants/needs Time Speech Therapy Time In: 14:30 Speech Therapy Time Out: 14:45 Total Billed Time: 15 Billed Treatment Time 1, ESTEBAN Trevino Sep 19, 2020 14:52
[2020-09-19] MEDS: hydrALAZINE (APRESOLINE) 25 MG TAB PO SCH ×2 (15:49→21:32)
[2020-09-19 17:09] VITALS: BP 170/72
[2020-09-19] MEDS: RT-ALBUTEROL INHALER HFA (VENTOLIN HFA) 18 GM IH SCH ×2 (18:35→22:11)
[2020-09-19] MEDS: warFARin 4 MG (COUMADIN) TAB PO SCH (18:47)
--- NOTE | 2020-09-19 21:08 | PM&R Post Admission Assessment ---
PM&R HP Date of Visit: Sep 19, 2020 Time of Visit: 10:30 History of Present Illness CC: Recovery from critical illness HPI: This is an 79yoWF clinic patient of Dr Prather and Dr Dixon who presented to the IRF in need of recovery following a critical illness. She was admitted for fall and confusion and syncope and was found to have SIVA and right hydrouteronephrosis which ultimately required stent placement by Dr Zayas. Patient was intubated for 2 days due to worsened clinical status. Kidney function regaining normal function. PNA treatment with abx. Lovenox started for bridge until Coumadin could be restarted. Patient had been on rate control meds along with HTN urgency meds while in ICU. Currently we will DC Telemetry and catheter and monitory closely. Past Iktfgbu-Hsbxmc-Huanri Hx Past Med/Social Hx: Reviewed Nursing Past Med/Soc Hx, Reviewed and Corrections made Patient Social History Marrital Status: cohabiting Employed/Student: retired Alcohol Use: Denies Use Smoking Status: Never a Smoker Recent Hopitalizations: No Immunizations Up To Date Tetanus Booster (TDap): Unknown Pediatric: No Date of Pneumonia Vaccine: Apr 12, 2018 Date of Influenza Vaccine: Apr 08, 2020 Seasonal Allergies Seasonal Allergies: Yes Past Medical History Surgeries: Coronary Stent, Pacemaker Cardiac: Atrial Fibrillation, High Cholesterol, Hypertension Reproductive: No Sexually Transmitted Disease: No HIV/AIDS: No Female Reproductive Disorders: Denies Endocrine: Hypothyroidsim HEENT: Cataract Hearing Impairment: Hard of Hearing, Hearing Aide Right, Hearing Aide Left History of Blood Disorders: No Adverse Reaction to Blood [place]: No Family History Patient reports no known family medical history. 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 Current Level of Fuctioning Roll Left to Right: 6 Sit to Lyin Lying to Sitting/Side of Bed: 3 Sit to Stand: 4 Chair/Jft-ea-Kugxm Xfer: 4 Car Transfer: 4 Does the Patient Walk: Yes Mode of Locomotion: Walk Anticipated Mode of Locomotion: Walk Walk 10 feet: 4 Walk 50 ft with 2 Turns: 4 Walk 150 ft: 4 Walking 10ft on uneven surface: 4 Gait Assistive Device: FWW Does the Pt Use a Wheelchair: No Wheel 50 ft with 2 turns: 9 Wheel 150 ft: 9 #of Steps: 1 1 Step (curb): 3 4 Steps: 88 Walking Assistive Device: Walker 12 Steps: 88 Picking up an Object: 4 Eatin Oral Hygiene: 6 (IND seated in chair.) Shower/Bathe Self: 3 (min A for bottom. CGA in stance at gbs. SC throughout) Upper Body Dressin (s/u) Lower Body Dressin (mod A- assist with threading catheter and RLE, then pt able to complete LLE threading in sit, sit to stand with CGA and completes hike with min A (fatigue). ) On/Off Footwear: 2 (max A at this time. ) Toileting Hygiene: 3 (mod A during showering. Pt able to reach to bottom, requires assist spreading bottom for cleaning and for thoroughness.) PM&R Allergy/Meds/Data Review Allergies Coded Allergies: Penicillins (Verified Allergy, Unknown, 11/07/18) pineapple (Verified Allergy, Unknown, 11/09/18) Home Medications Scheduled Amiodarone HCl (Amiodarone HCl), 200 MG PO DAILY, (Reported) Atorvastatin Calcium (Atorvastatin Calcium), 20 MG PO DAILY, (Reported) Carvedilol (Carvedilol), 12.5 MG PO BID, (Reported) Diltiazem HCl (Dilt-Xr), 240 MG PO DAILY, (Reported) Furosemide (Furosemide), 20 MG PO DAILY, (Reported) Gabapentin (Gabapentin), 200 MG PO DAILY, (Reported) Levothyroxine Sodium (Levothyroxine Sodium), 75 MCG PO DAILY, (Reported) Potassium Chloride (K-Tab ER), 20 MEQ PO DAILY, (Reported) Warfarin Sodium (Warfarin Sodium), 4 MG PO HERNANDEZ,MO,,,SA, (Reported) Warfarin Sodium (Warfarin Sodium), 6 MG PO TUE,TUE, (Reported) Current Medications Current Medications Reviewed Review of Systems Constitutional: see HPI, malaise, weakness EENTM: no symptoms reported Respiratory: no symptoms reported Cardiovascular: no symptoms reported Gastrointestinal: no symptoms reported Genitourinary: no symptoms reported Musculoskeletal: back pain Skin: no symptoms reported Psychiatric/Neurological: No Symptoms Reported Physical Exam Physical Exam Vital Signs Vital Signs - First Documented 09/19/20 09:30 Temp 35.4 Pulse 68 Resp 18 B/P (MAP) 147/67 (93) Pulse Ox 93 O2 Delivery Room Air Capillary Refill : Height, Weight, BMI Height: 5'9.00" Weight: 171lbs. 9.0oz. [id number]; 29.71 BMI Method:Stated General Appearance: No Apparent Distress, WD/WN, Chronically ill Eyes: Bilateral Eye Normal Inspection, Bilateral Eye PERRL HEENT: PERRL/EOMI, Normal ENT Inspection, Pharynx Normal, Other ([place] severe) Neck: Full Range of Motion, Normal Inspection, Non Tender, Supple, Carotid Bruit Respiratory: Chest Non Tender, Lungs Clear, Normal Breath Sounds, No Accessory Muscle Use, No Respiratory Distress Cardiovascular: No Edema, No Gallop, No JVD, Normal Peripheral Pulses, Systolic Murmur, Irregularly Irregular Gastrointestinal: Normal Bowel Sounds, No Organomegaly, No Pulsatile Mass, Non Tender, Soft Back: Normal Inspection, No CVA Tenderness, No Vertebral Tenderness Extremity: Normal Capillary Refill, Normal Inspection, Normal Range of Motion, Non Tender, No Calf Tenderness, No Pedal Edema Neurologic/Psychiatric: Alert, Oriented x3, No Motor/Sensory Deficits, Normal Mood/Affect, Abnormal Gait, Motor Weakness (generalized weakness lower extremities) Skin: Normal Color, Warm/Dry Lymphatic: No Adenopathy PM&R Medical Assessment & Plan REHAB/MEDICAL ASSESSMENT AND PLAN: 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 The comorbidities that impact the patients function and/or functional outcome by: severe presbycusis, AF, HTN, SIVA, obstruction of ureter REHAB PLAN: The patient is being admitted to our comprehensive inpatient rehabilitation facility and can tolerate the intensity of service consisting of at least: 180 minutes of therapy a day, 5 out of 7 days a week Rehab treatment will consist of: PT OT will focus on regaining strength along with improving energy conservation techniques in order to safely go home at [place] The patient/family has a good understanding of our discharge process and will benefit from an interdisciplinary inpatient rehabilitation program. The patient has potential to make improvement and is in need of at least two of the following multidisciplinary therapies including but not limited to physical, occupational, speech, and prosthetics and orthotics. Additionally the patient will need services from respiratory, nutritional services, wound care, psychology, etc. (Customize this to each patient). Given the patients complex condition and risk of further medical complications, rehabilitation services cannot be safely or effectively provided at a lower level of care such as a [place] [facility] facility. BARRIERS TO DISCHARGE: Severe weakness and labile complex issues ESTIMATED LOS: 14 days DISPOSITION: Home RELEVANT CHANGES SINCE PREADMISSION SCREENING: I have compared the patients medical and functional status at the time of the preadmission screening and there are: no changes PROGNOSIS: Good REHABILITATION GOALS: 1. PT OT will focus on regaining strength along with improving energy conservation techniques in order to safely go home at [place] All the above goals were reviewed with the patient and he/she is in agreement. By signing this document, I acknowledge that I have personally performed a full physical examination on this patient within 24 hours of admission to this [facility] and have determined the patient to be able to tolerate the above course of treatment at an intensive level for a reasonable period of time. I will be completing a detailed individualized Plan of Care for this patient by day #4 of the patients stay based upon the Preadmission Screen, the Post-Admission Evaluation, and the therapy evaluations. Admission Dx/Comorbidities: (1) Debility ICD Codes: R53.81 - Other malaise (2) Hypertensive emergency Status: Resolved ICD Codes: I16.1 - Hypertensive emergency (3) Hydroureteronephrosis Status: Acute ICD Codes: N13.30 - Unspecified hydronephrosis (4) Acute heart failure with preserved ejection fraction (HFpEF) Status: Acute ICD Codes: I50.31 - Acute diastolic (congestive) heart failure (5) On Coumadin for atrial fibrillation Status: Chronic ICD Codes: I48.91 - Unspecified atrial fibrillation; Z79.01 - intermediate manager (current) use of anticoagulants (6) Acute kidney injury superimposed on chronic kidney disease Status: Acute ICD Codes: N17.9 - Acute kidney failure, unspecified; N18.9 - Chronic kidney disease, unspecified (7) Obstruction of right ureter Status: Acute ICD Codes: N13.5 - Crossing vessel and stricture of ureter without hydronephrosis (8) Acute respiratory failure with hypoxia Status: Acute ICD Codes: J96.01 - Acute respiratory failure with hypoxia (9) Paroxysmal A-fib Status: Chronic ICD Codes: I48.0 - Paroxysmal atrial fibrillation (10) Hypothyroidism Status: Chronic ICD Codes: E03.9 - Hypothyroidism, unspecified (11) Frequent falls Status: Acute ICD Codes: R29.6 - Repeated falls (12) UTI (urinary tract infection) Status: Acute ICD Codes: N39.0 - Urinary tract infection, site not specified (13) Uropathy, obstructive Status: Acute ICD Codes: N13.9 - Obstructive and reflux uropathy, unspecified (14) Valvular heart disease Status: Chronic ICD Codes: I38 - Endocarditis, valve unspecified Assessment/Plan Assessment and Plan Assess & Plan/Chief Complaint Assessment: Critical illness myopathy SIVA now resolved Right ureter stent for obstruction of uncertain etiology AF on Coumadin restarting on Lovenox bridge Valvular heart disease HTN Hypothyroidism Presbycusis Plan: Monitor closely INR check Lovenox bridge IRF protocol DAYA VILLEGAS DO Sep 19, 2020 21:08
[2020-09-19 21:30] VITALS: BP 151/68
[2020-09-19] MEDS: CARVEDILOL 12.5 MG (COREG) TABLET PO SCH (21:32)
[2020-09-19] MEDS: DOCUSATE SODIUM 100 MG (COLACE) CAP PO SCH (21:32)
[2020-09-19] MEDS: SENNOSIDES 8.6 MG (SENOKOT) TAB PO SCH (21:33)
[2020-09-20] MEDS: RT-ALBUTEROL INHALER HFA (VENTOLIN HFA) 18 GM IH SCH ×6 (01:41→22:17)
[2020-09-20] MEDS: IPRATROPIUM INHALER (ATROVENT) 12.9 GM INH SCH ×6 (01:41→22:17)
[2020-09-20 05:18] VITALS: BP 150/67
[2020-09-20 05:47] LABS: BASOPHILS % (AUTO) 0 % (0-10); EOSINOPHILS # (AUTO) 0.3 10^3/uL (0.0-0.3); EOSINOPHILS % (AUTO) 3 % (0-10); HEMATOCRIT 30 % (35-52); HEMOGLOBIN 9.4 g/dL (11.5-16.0); LYMPHOCYTES # (AUTO) 1.6 10^3/uL (1.0-4.0); LYMPHOCYTES % (AUTO) 18 % (12-44); MEAN CORPUSCULAR HEMOGLOBIN 30 pg (25-34); MEAN CORPUSCULAR HGB CONC 31 g/dL (32-36); MEAN CORPUSCULAR VOLUME 96 fL (80-99); MEAN PLATELET VOLUME 11.2 fL (9.0-12.2); MONOCYTES % (AUTO) 11 % (0-12); NEUTROPHILS # (AUTO) 6.2 10^3/uL (1.8-7.8); NEUTROPHILS % (AUTO) 67 % (42-75); PLATELET COUNT 255 10^3/uL (130-400); WHITE BLOOD COUNT 9.2 10^3/uL (4.3-11.0)
[2020-09-20] MEDS: hydrALAZINE (APRESOLINE) 25 MG TAB PO SCH ×3 (05:52→21:11)
[2020-09-20 05:55] LABS: CHLORIDE 103 MMOL/L (98-107)
[2020-09-20 05:56] LABS: POTASSIUM 3.7 MMOL/L (3.6-5.0); SODIUM 142 MMOL/L (135-145)
[2020-09-20 05:57] LABS: CALCIUM 8.2 MG/DL (8.5-10.1)
[2020-09-20 05:58] LABS: GLUCOSE 91 MG/DL (70-105); TOTAL PROTEIN 5.5 GM/DL (6.4-8.2)
[2020-09-20 05:59] LABS: CARBON DIOXIDE 28 MMOL/L (21-32)
[2020-09-20 06:00] LABS: BILIRUBIN,TOTAL 0.4 MG/DL (0.1-1.0)
[2020-09-20 06:01] LABS: ALKALINE PHOSPHATASE 78 U/L (40-136); CREATININE SERUM 0.88 MG/DL (0.60-1.30); GFR ESTIMATED > 60
[2020-09-20 06:03] LABS: BUN/CREATININE RATIO 11
[2020-09-20 06:04] LABS: ALANINE AMINOTRANSFERASE 15 U/L (0-55)
[2020-09-20] MEDS: SENNOSIDES 8.6 MG (SENOKOT) TAB PO SCH ×2 (08:43→21:12)
[2020-09-20] MEDS: DOCUSATE SODIUM 100 MG (COLACE) CAP PO SCH ×2 (08:43→21:11)
[2020-09-20] MEDS: LEVOTHYROXINE 75 MCG (LEVOTHROID) TABLET PO SCH (08:43)
[2020-09-20] MEDS: CARVEDILOL 12.5 MG (COREG) TABLET PO SCH ×2 (08:43→21:11)
[2020-09-20] MEDS: SENNA W/DOCUSATE (SENOKOT S) TABLET PO SCH ×2 (08:43→21:12)
[2020-09-20] MEDS: polyethylene glycoL POWDER 17 GM (MIRALAX) PACK PO SCH ×2 (08:43→21:12)
[2020-09-20 08:54] VITALS: BP 130/80
[2020-09-20] MEDS ORDERED: amLODIPine 10 MG (NORVASC) TAB PO SCH (09:00)
--- NOTE | 2020-09-20 09:19 | Physical Therapy Daily Note ---
PT Daily Note-Current Subjective Pt. agrees to Rx. States she is making good progress Pain Location: No Pain Reported Mental Status Patient Orientation: Person, Place, Time, Situation Transfers SCALE: Activities may be completed with or without assistive devices. 3-Ficrpgsupp-unpmpdm completes the activity by him/herself with no assistance from a helper. 5-Set-up or Clean-up Assistance-helper sets up or cleans up; patient completes activity. [place] assists only prior to or following the activity. 4-Supervision or Touching Assistance-helper provides verbal cues and/or touching/steadying and/or contact guard assistance as patient completes activity. Assistance may be provided throughout the activity or intermittently. 3-Partial/Moderate Assistance-helper does LESS THAN HALF the effort. [place] lifts, holds or supports trunk or limbs, but provides less than half the effort. 2-Substantial/Maximal Assistance-helper does MORE THAN HALF the effort. [place] lifts or holds trunk or limbs and provides more than half the effort. 5-Komzngzjo-oegrsg does ALL the effort. Patient does none of the effort to complete the activity. Or, the assistance of 2 or more helpers is required for the patient to complete the activity. If activity was not attempted, code reason: 7-Patient Refused. 9-Not Applicable-not attempted and the patient did not perform the activity before the current illness, exacerbation or injury. 10-Not Attempted due to Environmental Limitations-(lack of equipment, weather restraints, etc.). 88-Not Attempted due to Medical Conditions or Safety Concerns. sit to stand all indep Gait Training Does the Patient Walk?: Yes Gait Assistive Device: FWW [id number], 50ft x 1, slow, no walter LOB Exercises Seated Therapy Exercises: Ankle pumps, Sit to stand, Long arc quads, Hip flexion, Hip abd/add Seated Reps: 12 NuStep Minutes: 8 NuStep Workload: 3 Assessment Current Status: Good Progress PT Short Term Goals Short Term Goals Time Frame: Sep 26, 2020 Roll Left & Right: 6 Sit to lyin Lying to sitting on side of be: 4 Sit to stand: 5 Chair/tff-jd-vlrdb transfer: 5 Walk 10 feet: 5 Walk 50 feet with two turns: 5 Walk 150 feet: 5 PT Duck Bill Operator Goals Intermediate Goals PT Intermediate Goals Time Frame: Oct 10, 2020 Roll Left & Right (QC): 6 Sit to Lying (QC): 6 Lying-Sitting on Side/Bed(QC): 6 Sit to Stand (QC): 6 Chair/Hxq-wt-Zlhiu Xfer(QC): 6 Toilet Transfer (QC): 6 Car Transfer (QC): 6 Does the Patient Walk: Yes Walk 10 feet (QC): 6 Walk 50ft with 2 Turns (QC): 6 Walk 150 ft (QC): 6 Walking 10ft on Uneven Surface: 6 1 Step (curb) (QC): 4 4 Steps (QC): 4 12 Steps (QC): 88 Picking up an Object (QC): 5 Wheel 50 feet with 2 turns (QC: 9 Wheel 150 feet: 9 PT Plan Treatment/Plan Treatment Plan: Continue Plan of Care Treatment Plan: Bed Mobility, Education, Functional Activity Gilda, Functional Strength, Group Therapy, Gait, Safety, Therapeutic Exercise, Transfers Treatment Duration: Oct 10, 2020 Frequency: At least 5 of 7 days/Wk (IRF) Estimated Hrs Per Day: 1.5 hours per day Patient and/or Family Agrees t: Yes Safety Risks/Education Patient Education: Gait Training, Transfer Techniques Time/GCodes Time In: 855 Time Out: 920 Total Billed Treatment Time: 25 Total Billed Treatment 1,GT15,EX10 LORA ROBLES INCLUSION PARAEDUCATOR Sep 20, 2020 09:18
--- NOTE | 2020-09-20 11:52 | Individualized Plan of Care ---
Individualized Plan of Care Rehab Nursing IPOC Order Admission Date Sep 19, 2020 at 09:30 Current Orders Orders Admission Order(Inpt,Obs,Sdc) (09/19/20 05:52) Vital Signs: Per Unit Policy ( ,,00 (09/19/20 05:52) Duct Layer Helper-Inpt Rehab Con (09/19/20 05:52) Rehab Nursing Orders-Ipoc (09/19/20 05:52) Physical Therapy Rehab Orders (09/19/20 05:52) Occupational Therapy Rehab Ord (09/19/20 05:52) Speech Therapy Rehab Orders (09/19/20 05:52) Cbc With Automated Diff (09/20/20 06:00) Comprehensive Metabolic Panel (09/20/20 06:00) Precautions (Aru) (09/19/20 05:52) Rehab-Intensity Of Therapy (09/19/20 05:52) Initiate Admission Nursing Pro .admission (09/19/20 05:52) Acetaminophen Tablet (Tylenol Tablet) (09/19/20 06:00) Alprazolam Tablet (Xanax Tablet) (09/19/20 06:00) Calcium Carbonate Chew Tablet (Antacid C (09/19/20 06:00) Diphenhydramine Tablet (Benadryl Tablet) (09/19/20 06:00) Docusate Sodium Capsule (Colace Capsule) (09/19/20 09:00) Docusate Sodium Capsule (Colace Capsule) (09/19/20 06:00) Bisacodyl Suppository (Dulcolax Supposit (09/19/20 06:00) Lactulose Oral Solution (Enulose Oral So (09/19/20 06:00) Na Phos/Na Biphos Enema (Fleet Enema Hunter (09/19/20 06:00) Guaifenesin/Codeine Syrup (Robitussin Ac (09/19/20 06:00) Loperamide Tablet (Imodium Tablet) (09/19/20 06:00) Melatonin Tablet (Melatonin Tablet) (09/19/20 06:00) Polyethylene Glycol Powder Pkt (Miralax (09/19/20 09:00) Ondansetron Oral Dissolve Tab (Zofran (09/19/20 06:00) Senna S Tablet (Senokot S Tablet) (09/19/20 09:00) Initiate Admission Nursing Pro .admission (09/19/20 05:52) Admission Order(Inpt,Obs,Sdc) (09/19/20 10:15) Code/Resuscitation (09/19/20 10:15) Sequential Compression Device Q4H (09/19/20 10:15) Initiate Admission Nursing Pro .admission (09/19/20 10:15) Code/Resuscitation (09/19/20 10:27) Activity (09/19/20 10:27) Iv Leave Out (Order) (09/19/20 10:27) Heart Healthy (09/19/20 Lunch) Albuterol Inhaler (Ventolin Hfa) (09/19/20 10:30) Carvedilol Tablet (Coreg Tablet) (09/19/20 21:00) Docusate Sodium Capsule (Colace Capsule) (09/19/20 21:00) Bisacodyl Suppository (Dulcolax Supposit (09/19/20 10:30) Enoxaparin Injection (Lovenox Injection) (09/19/20 12:00) Ipratropium Inhaler (Atrovent Inhaler) (09/19/20 14:00) Levothyroxine Tablet (Synthroid Tablet) (09/20/20 09:00) Melatonin Tablet (Melatonin Tablet) (09/19/20 10:30) Polyethylene Glycol Powder Pkt (Miralax (09/19/20 10:30) Antacid Suspension (Mylanta Suspension (09/19/20 10:30) Nitroglycerin Ointment (Nitrobid Ointme (09/19/20 10:30) Sennosides Tablet (Senokot Tablet) (09/19/20 21:00) Sodium Chloride Flush (Catheter Flush Sy (09/19/20 10:30) Acetaminophen Tablet/Caplet (Tylenol T (09/19/20 10:30) Ondansetron Oral Dissolve Tab (Zofran (09/19/20 10:30) Amlodipine Tablet (Norvasc Tablet) (09/20/20 09:00) Diltiazem Cd 24 Hr Capsule (Cardizem Cd (09/20/20 09:00) Hydralazine Tablet (Apresoline Tablet) (09/19/20 14:00) Bipap (Bilevel) Set Up (09/19/20 10:27) Communication For Respiratory (09/19/20 10:27) Consult Urology (09/19/20 10:27) Consult Pulmonology (09/19/20 10:27) Telemetry (09/19/20 10:27) Albuterol Inhaler (Ventolin Hfa) (09/19/20 11:30) Warfarin Tablet (Coumadin Tablet) (09/20/20 18:00) Warfarin Tablet (Coumadin Tablet) (09/19/20 18:00) Patient Visit (09/19/20 ) Pt Eval Moderate Complexity (09/19/20 ) Functional Activities, Ea 15 (09/19/20 ) Patient Visit (09/19/20 ) Exercise Therap, Ea 15 Min (09/19/20 ) Functional Activities, Ea 15 (09/19/20 ) Rt Request For Service (09/19/20 14:45) Patient Visit (09/19/20 ) Speech Sound Lang Comp (09/19/20 ) Albuterol Inhaler (Ventolin Hfa) (09/19/20 18:00) Protime With Inr (09/21/20 06:00) Patient Visit (09/20/20 ) Gait Training, Ea 15 Min (09/20/20 ) Exercise Therap, Ea 15 Min (09/20/20 ) Miconazole 2% Powder (Desenex Af 2% Powd (09/20/20 21:00) Nystatin Cream (Mycostatin Cream) (09/20/20 13:00) Consult Cardiology (09/20/20 11:50) Furosemide Tablet (Lasix Tablet) (09/21/20 09:00) Potassium Chloride (Tablet) (Klor Con Ta (09/21/20 07:00) Aspirin Chewable Tablet (Baby Aspirin Ch (09/21/20 09:00) Atorvastatin Tablet (Lipitor Tablet) (09/21/20 09:00) Hyoscyamine Sl Tablet (Levsin Sl Tablet) (09/20/20 21:00) Hyoscyamine Er Tablet (Levbid Er Tablet) (09/20/20 21:00) Rehab Nursing Orders: Ongoing Assess. of Function Status, Bladder Management, Bladder Scan, Bladder Training, Bowel Management, Bowel Training, Disease Management & Educaiton, DVT Prophylaxis, Fall Prevention, Fluid/Electrolyte/Nutrition Mgmt, Infection Prevention, Medication Management & Education, Management of Risks & Complications, Management of Skin Intergrity, Nutrition Management, Pain Management, Patient/Family Support, Safety Management Intensity of Therapy to be met Patient to be seen: Min.3h per day/5 of 7d PT IPOC Problem List: Activity Tolerance, Functional Strength, Safety, Balance, Gait, Transfer, Bed Mobility, ROM Treatment Plan: Continue Plan of Care Bed Mobility, Education, Functional Activity Gilda, Functional Strength, Group Therapy, Gait, Safety, Therapeutic Exercise, Transfers Treatment Duration: Oct 10, 2020 Frequency: At least 5 of 7 days/Wk (IRF) Estimated Hrs Per Day: 1.5 hours per day OT IPOC Problems: Decreased Activ Tolerance, Dependent Transfers, Edema, Impaired Bed Mobility, Impaired Funct Balance, Impaired I ADL's, Impaired Self-Care Skills OT Treatment, Training and Edu: Yes Plan of Care: ADL Retraining, Caregiver Training, Concurrent Therapy, Functional Mobility, Group Exercise/Act as Ind, UE Funct Exercise/Act Treatment Duration: Oct 03, 2020 Frequency: At least 5 of 7 days/Wk (IRF) Estimated Hrs Per Day: 1.[address] IPOC Speech Therapy Treatment Plan: Discontinue ST Treatment Duration: Sep 19, 2020 Frequency: 1 time per week Estimated Hrs Per Day: .25 hour per day Duct Layer Helper/Case Mgmt Duct Layer Helper/Case Managemen: Discharge Planning Dietitian/Examination Scorer Dietitian/Examination Scorer to monitor nutritional status and make changes and/or recommendations as needed and work with speech pathology on dietary upgrades as the occur. Physician IPOC Medical Issues being managed closely and that require the 24 hour availability of a physician: Recent critical illness requiring vent management and ureteral stent will require close monitoring due to risk for decompensation Medical Issues: Bowel/Bladder Function, DVT Prophylaxis, Falls Precautions, Fluid/Electrolyte/Nutrition Balance, Infection Protection, Pain Management Brief Synthesis of Preadmission Screen, Post-Admission Evaluation, and Therapy Evaluations: PT OT will focus on regaining function and ambulatory skills in order to regain function in order to live independently Medical Prognosis: Good Anticipated Length of Stay: 10 days DAYA VILLEGAS DO Sep 20, 2020 11:52
--- NOTE | 2020-09-20 11:52 | PM&R Progress Note ---
Subjective HPI/CC On Admission Date Seen by Provider: Sep 20, 2020 Time Seen by Provider: 12:15 Subjective/Events-last exam 09/20/20: Patient settling in well No pain reported Cardiology consulted for edema Lasix and K+ taken at home will likely restart INR monitoring Lovenox bridge O2 maintained Urinary frequency noted Review of Systems General: Fatigue, Malaise Genitourinary: Frequency Objective Exam Vital Signs Vital Signs Date Time Temp Pulse Resp B/P (MAP) Pulse Ox O2 Delivery O2 Flow Rate FiO2 09/21/20 06:53 92 Room Air 09/21/20 05:35 36.9 69 16 157/67 (97) Capillary Refill : General Appearance: No Apparent Distress, WD/WN, Chronically ill HEENT: PERRL/EOMI, Normal ENT Inspection, Pharynx Normal, Other ([place] severe) Neck: Full Range of Motion, Normal Inspection, Non Tender, Supple, Carotid Bruit Respiratory: Chest Non Tender, Lungs Clear, Normal Breath Sounds, No Accessory Muscle Use, No Respiratory Distress Cardiovascular: No Edema, No Gallop, No JVD, Normal Peripheral Pulses, Systolic Murmur, Irregularly Irregular Gastrointestinal: Normal Bowel Sounds, No Organomegaly, No Pulsatile Mass, Non Tender, Soft Back: Normal Inspection, No CVA Tenderness, No Vertebral Tenderness Extremity: Normal Capillary Refill, Normal Inspection, Normal Range of Motion, Non Tender, No Calf Tenderness, No Pedal Edema Neurologic/Psychiatric: Alert, Oriented x3, No Motor/Sensory Deficits, Normal Mood/Affect, Abnormal Gait, Motor Weakness (generalized weakness lower extremities) Skin: Normal Color, Warm/Dry Lymphatic: No Adenopathy Results/Procedures Lab Patient resulted labs reviewed. FIM Transfers Therapy Code Descriptions/Definitions Functional [place] Measure: 0=Not Assessed/NA 4=Minimal Assistance 1=Total Assistance 5=Supervision or Setup 2=Maximal Assistance 6=Modified [place] 3=Moderate Assistance 7=Complete IndependenceSCALE: Activities may be completed with or without assistive devices. 5-Lrnjkxgupv-iowtvdx completes the activity by him/herself with no assistance from a helper. 5-Set-up or Clean-up Assistance-helper sets up or cleans up; patient completes activity. [place] assists only prior to or following the activity. 4-Supervision or Touching Assistance-helper provides verbal cues and/or touching/steadying and/or contact guard assistance as patient completes activity. Assistance may be provided throughout the activity or intermittently. 3-Partial/Moderate Assistance-helper does LESS THAN HALF the effort. [place] lifts, holds or supports trunk or limbs, but provides less than half the effort. 2-Substantial/Maximal Assistance-helper does MORE THAN HALF the effort. [place] lifts or holds trunk or limbs and provides more than half the effort. 0-Yrtzqefwl-cjszmo does ALL the effort. Patient does none of the effort to complete the activity. Or, the assistance of 2 or more helpers is required for the patient to complete the activity. If activity was not attempted, code reason: 7-Patient Refused. 9-Not Applicable-not attempted and the patient did not perform the activity before the current illness, exacerbation or injury. 10-Not Attempted due to Environmental Limitations-(lack of equipment, weather restraints, etc.). 88-Not Attempted due to Medical Conditions or Safety Concerns. Roll Left to Right (QC): 6 Sit to Lying (QC): 3 Sit to Stand (QC): 4 Chair/Sfj-by-Oukcb Xfer(QC): 4 Car Transfer (QC): 4 Gait Training Does the Patient Walk?: Yes Distance: 150' x 2 Walk 10 feet (QC): 4 Walk 50 ft with 2 Turns(QC): 4 Walk 150 ft (QC): 4 Walking 10ft/uneven surface-QC: 4 Gait Assistive Device: FWW Wheelchair Training Does the Pt Use a Wheelchair?: No Wheel 50 ft with 2 turns (QC): 9 Wheel 150 ft (QC): 9 Stair Training #of Steps: 1 1 Step (curb) (QC): 3 4 Steps (QC): 88 12 Steps (QC): 88 Balance Picking up an Object (QC): 4 ADL-Treatment Eating (QC): 6 Oral Hygiene (QC): 6 (IND seated in chair.) Shower/Bathe Self (QC): 3 (min A for bottom. CGA in stance at gbs. SC throughout) Upper Body Dressing (QC): 5 (s/u) Lower Body Dressing (QC): 3 (mod A- assist with threading catheter and RLE, then pt able to complete LLE threading in sit, sit to stand with CGA and completes hike with min A (fatigue). ) On/Off Footwear (QC): 2 (max A at this time. ) Toileting Hygiene (QC): 3 (mod A during showering. Pt able to reach to bottom, requires assist spreading bottom for cleaning and for thoroughness.) Assessment/Plan Assessment and Plan Assess & Plan/Chief Complaint Assessment: Critical illness myopathy SIVA now resolved Right ureter stent for obstruction of uncertain etiology AF on Coumadin restarting on Lovenox bridge Valvular heart disease HTN Hypothyroidism Presbycusis Plan: Monitor closely INR check Lovenox bridge IRF protocol 09/20/20: Monitor urinary frequency Monitor O2 INR monitoring Lovenox bridge (1) Debility (2) Hypertensive emergency Status: Resolved Resolution Date/Time: 09/12/20 @ 09:59 (3) Hydroureteronephrosis Status: Acute (4) Acute heart failure with preserved ejection fraction (HFpEF) Status: Acute (5) On Coumadin for atrial fibrillation Status: Chronic (6) Acute kidney injury superimposed on chronic kidney disease Status: Acute (7) Obstruction of right ureter Status: Acute (8) Acute respiratory failure with hypoxia Status: Acute (9) Paroxysmal A-fib Status: Chronic (10) Hypothyroidism Status: Chronic (11) Frequent falls Status: Acute (12) UTI (urinary tract infection) Status: Acute (13) Uropathy, obstructive Status: Acute (14) Valvular heart disease Status: Chronic DAYA VILLEGAS DO Sep 20, 2020 11:52
[2020-09-20] MEDS: ENOXAPARIN 100 MG/1 ML (LOVENOX) SYR SC SCH ×2 (12:20→23:27)
[2020-09-20] MEDS: NYSTATIN CREAM (MYCOSTATIN) 30 GM TUBE TP SCH ×2 (13:12→21:10)
[2020-09-20 14:20] VITALS: BP 144/67
--- NOTE | 2020-09-20 15:32 | Consultation-Cardiology ---
HPI-Cardiology Cardiology Consultation: Date of Consultation 09/20/20 Time Seen by a Provider: 15:10 Date of Admission Attending Physician Lilliam Portillo DO Admitting Physician Osman Prather MD Consulting Physician JACINDA ST MD, MA, FACP, FACC, FSCAI, CCDS HPI: Chief Complaint: Physician requesting consult: Dr Portillo Reason for consultation: Swelling, A Fib HPI 79 yo woman admitted recently with ac renal failure and obstructive uropathy who is now on the Rehab Unit under Dr Portillo's service. We have been asked to see her regarding leg swelling and a h/o A Fib. She denies cp or palp or syncope or shortness of breath at rest. She has some gen malaise. She denies focal weakness Review of Systems-Cardiology Review of Systems Constitutional: malaise; No weight loss, No weight gain Eyes: No vision change Ears/Nose/Throat: No ear discharge, No nasal drainage, No recent hearing loss Respiratory: As described under HPI Cardiovascular: As described under HPI Gastrointestinal: No diarrhea, No nausea, No vomiting Genitourinary: No dysuria, No hematuria, No urine frequency changes Musculoskeletal: back pain (chronic) Skin: No rash, No ulcerations Psychiatric/Neurological: No seizure, No focal weakness, No syncope LES-Gbkxiy-Djqgau Hx Patient Social History Marrital Status: cohabiting Employed/Student: retired Smoking Status: Never a Smoker Immunizations Up To Date Tetanus Booster (TDap): Unknown Date of Pneumonia Vaccine: Apr 12, 2018 Date of Influenza Vaccine: Apr 08, 2020 Past Medical History PMH As described under Assessment. Family Medical History Family History: Patient reports no known family medical history. Allergies and Home Medications Allergies Coded Allergies: Penicillins (Verified Allergy, Unknown, 11/07/18) pineapple (Verified Allergy, Unknown, 11/09/18) Home Medications Amiodarone HCl 200 Mg Tablet, 200 MG PO DAILY, (Reported) Atorvastatin Calcium 20 Mg Tablet, 20 MG PO DAILY, (Reported) Carvedilol 12.5 Mg Tablet, 12.5 MG PO BID, (Reported) Diltiazem HCl 240 Mg Cap.er.deg, 240 MG PO DAILY, (Reported) Furosemide 20 Mg Tablet, 20 MG PO DAILY, (Reported) Gabapentin 100 Mg Capsule, 200 MG PO DAILY, (Reported) TAKES 2 (100MG) CAPSULES Levothyroxine Sodium 75 Mcg Tablet, 75 MCG PO DAILY, (Reported) Potassium Chloride 10 Meq Tablet.er, 20 MEQ PO DAILY, (Reported) TAKES 2 (10MEQ) TABS Warfarin Sodium 4 Mg Tablet, 4 MG PO HERNANDEZ,MO,,,SA, (Reported) Warfarin Sodium 4 Mg Tablet, 6 MG PO TUE,TUE, (Reported) TAKES 1 & 1/2 (4MG) TABLET Patient Home Medication List Home Medication List Reviewed: Yes Physical Exam-Cardiology Physical Exam Vital Signs/I&O 09/20/20 09/20/20 09/20/20 09/20/20 05:18 07:01 08:54 09:10 Temp 37.4 Pulse 69 81 Resp 20 B/P (MAP) 150/67 (94) 130/80 (97) Pulse Ox 91 91 O2 Delivery Room Air Room Air Room Air 09/20/20 09/20/20 09/20/20 10:42 14:20 14:44 B/P (MAP) 144/67 (92) Pulse Ox 92 92 90 O2 Delivery Room Air Room Air Room Air 09/20/20 00:00 Intake Total 850 ml Output Total 1500 ml Balance -650 ml Capillary Refill : Constitutional: AAO x 3, well-developed, well-nourished HEENT: EOMI, hearing is well preserved; No xanthelasmas are seen Neck: carotid pulses are 2 + bilaterally, with good upstrokes Respiratory: No accessory muscle use; other (fair to good, bilat air entry) Cardiovascular: regular rate-rhythm, S1 and S2, systolic murmur (3/6 MSM at card base) Gastrointestinal: No tender; soft; No guarding, No rebound; audible bowel sounds Extremities: swelling (2+ edema of both legs); No clubbing, No cyanosis Neurologic/Psychiatric: oriented x 3, other (she moves all her limbs equally) Skin: No rash on exposed areas, No ulcerations on exposed areas Data Review Labs Laboratory Tests 09/20/20 04:47: White Blood Count 9.2, Red Blood Count 3.13L, Hemoglobin 9.4L, Hematocrit 30L, Mean Corpuscular Volume 96, Mean Corpuscular Hemoglobin 30, Mean Corpuscular Hemoglobin Concent 31L, Red Cell Distribution Width 13.7, Platelet Count 255, Mean Platelet Volume 11.2, Immature Granulocyte % (Auto) 1, Neutrophils (%) (Auto) 67, Lymphocytes (%) (Auto) 18, Monocytes (%) (Auto) 11, Eosinophils (%) (Auto) 3, Basophils (%) (Auto) 0, Neutrophils # (Auto) 6.2, Lymphocytes # (Auto) 1.6, Monocytes # (Auto) 1.0, Eosinophils # (Auto) 0.3, Basophils # (Auto) 0.0, Immature Granulocyte # (Auto) 0.1, Sodium Level 142, Potassium Level 3.7, Chloride Level 103, Carbon Dioxide Level 28, Anion Gap 11, Blood Urea Nitrogen 10, Creatinine 0.88, Estimat Glomerular Filtration Rate > 60, BUN/Creatinine Ratio 11, Glucose Level 91, Calcium Level 8.2L, Corrected Calcium 9.0, Total Bilirubin 0.4, Aspartate Amino Transf (AST/SGOT) 27, Alanine Aminotransferase (ALT/SGPT) 15, Alkaline Phosphatase 78, Total Protein 5.5L, Albumin 3.0L Laboratory Tests 09/20/20 04:47 A/P-Cardiology Assessment/Admission Diagnosis Recent ac resp failure, ac renal failure and obstructive uropathy, now resolved and pt undergoing Rehab. Coronary artery disease with history of stent to LAD. 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, 2017 in [place] with uneventful deployment of a 26 mm [employer]onic Evolut Pro - Last echo 09/10/20: LVEF 80-85, aortic valve prosthesis with peak grad 28 and mean grad 11 and valve area 1/9 sq cm, mod to sev MR, mod TR, PASP 85-90 mmHg Paroxysmal atrial fibrillation and SSS - chronic amiodarone therapy for rhythm control - chronic warfarin therapy for stroke prophylaxis - s/p perm pacemaker for management of bradycardia, managed by Dr Dixon Hypertension Mild bilateral carotid stenosis, last u/s Jul 2018, managed by Dr Dixon Hyperlipidemia, treated with statin H/o hypothyroidism, treated with levo-thyroxine Bilateral leg swelling, likely related to venous insuff and calcium channel umang therapy Discussion and Recomendations * D/c amlodipine * Add furosemide and K (that she was on at home) * Continue warfarin * Stop enoxaparin when PT 2 or more * Monitor labs JACINDA ST MD FACP [facility] CCDS Sep 20, 2020 15:32
[2020-09-20 16:20] VITALS: BP 163/72
[2020-09-20] MEDS: warFARin 4 MG (COUMADIN) TAB PO SCH (17:12)
[2020-09-20] MEDS ORDERED: HYOSCYAMINE 0.125 MG (LEVSIN) TAB PO SCH (21:00)
[2020-09-20 21:01] VITALS: BP 137/64
[2020-09-20] MEDS: HYOSCYAMINE 0.375 MG (LEVBID) TAB PO SCH (21:11)
[2020-09-20] MEDS: MICONAZOLE 2% POWDER (DESENEX AF) 90 GM TOP SCH (21:11)
[2020-09-21] MEDS: IPRATROPIUM INHALER (ATROVENT) 12.9 GM INH SCH ×6 (02:00→21:59)
[2020-09-21] MEDS: RT-ALBUTEROL INHALER HFA (VENTOLIN HFA) 18 GM IH SCH ×6 (02:00→21:59)
[2020-09-21 05:35] VITALS: BP 157/67
[2020-09-21 05:36] LABS: INR 2.2 (0.8-1.4); PROTHROMBIN TIME PATIENT 24.4 SEC (12.2-14.7)
[2020-09-21] MEDS: KCL 10 MEQ TAB (MICRO K) PO SCH (06:23)
[2020-09-21] MEDS: hydrALAZINE (APRESOLINE) 25 MG TAB PO SCH ×3 (06:23→21:00)
[2020-09-21] MEDS: LEVOTHYROXINE 75 MCG (LEVOTHROID) TABLET PO SCH (08:40)
[2020-09-21] MEDS: MICONAZOLE 2% POWDER (DESENEX AF) 90 GM TOP SCH ×2 (08:40→20:59)
[2020-09-21] MEDS: NYSTATIN CREAM (MYCOSTATIN) 30 GM TUBE TP SCH ×3 (08:40→20:59)
[2020-09-21] MEDS: ASPIRIN 81 MG CHEW (CHILDREN'S ASA) PO SCH (08:42)
[2020-09-21] MEDS: FUROSEMIDE 20 MG (LASIX) TAB PO SCH (08:42)
[2020-09-21] MEDS: HYOSCYAMINE 0.375 MG (LEVBID) TAB PO SCH ×2 (08:42→21:00)
[2020-09-21] MEDS: CARVEDILOL 12.5 MG (COREG) TABLET PO SCH ×2 (08:42→21:00)
[2020-09-21] MEDS: polyethylene glycoL POWDER 17 GM (MIRALAX) PACK PO SCH ×2 (08:43→20:59)
[2020-09-21] MEDS: DOCUSATE SODIUM 100 MG (COLACE) CAP PO SCH ×2 (08:43→21:00)
[2020-09-21] MEDS: SENNA W/DOCUSATE (SENOKOT S) TABLET PO SCH ×2 (08:44→20:59)
[2020-09-21] MEDS: SENNOSIDES 8.6 MG (SENOKOT) TAB PO SCH ×2 (08:44→20:59)
--- NOTE | 2020-09-21 11:43 | PM&R Progress Note ---
Subjective HPI/CC On Admission Date Seen by Provider: Sep 21, 2020 Time Seen by Provider: 11:45 Subjective/Events-last exam 09/21/20: Patient doing well Levsin for bladder spasms order by Dr Zayas Stent removal will be this week INR 2.[address] Horan restarted Lasix and a few other meds and DC Norvasc ASA daily 09/20/20: Patient settling in well No pain reported Cardiology consulted for edema Lasix and K+ taken at home will likely restart INR monitoring Lovenox bridge O2 maintained Urinary frequency noted Review of Systems General: Fatigue, Malaise Cardiovascular: Edema Objective Exam Vital Signs Vital Signs Date Time Temp Pulse Resp B/P (MAP) Pulse Ox O2 Delivery O2 Flow Rate FiO2 09/21/20 15:05 90 Room Air 09/21/20 05:35 36.9 69 16 157/67 (97) Capillary Refill : General Appearance: No Apparent Distress, WD/WN, Chronically ill HEENT: PERRL/EOMI, Normal ENT Inspection, Pharynx Normal, Other ([place] severe) Neck: Full Range of Motion, Normal Inspection, Non Tender, Supple, Carotid Bruit Respiratory: Chest Non Tender, Lungs Clear, Normal Breath Sounds, No Accessory Muscle Use, No Respiratory Distress Cardiovascular: No Gallop, No JVD, Normal Peripheral Pulses, Systolic Murmur, I rregularly Irregular Gastrointestinal: Normal Bowel Sounds, No Organomegaly, No Pulsatile Mass, Non Tender, Soft Back: Normal Inspection, No CVA Tenderness, No Vertebral Tenderness Extremity: Normal Capillary Refill, Normal Inspection, Normal Range of Motion, Non Tender, No Calf Tenderness, Pedal Edema Neurologic/Psychiatric: Alert, Oriented x3, No Motor/Sensory Deficits, Normal Mood/Affect, Abnormal Gait, Motor Weakness (generalized weakness lower extremities) Skin: Normal Color, Warm/Dry Lymphatic: No Adenopathy Results/Procedures Lab Patient resulted labs reviewed. FIM Transfers Therapy Code Descriptions/Definitions Functional [place] Measure: 0=Not Assessed/NA 4=Minimal Assistance 1=Total Assistance 5=Supervision or Setup 2=Maximal Assistance 6=Modified [place] 3=Moderate Assistance 7=Complete IndependenceSCALE: Activities may be completed with or without assistive devices. 5-Cctbgnmkke-jedlcbu completes the activity by him/herself with no assistance from a helper. 5-Set-up or Clean-up Assistance-helper sets up or cleans up; patient completes activity. [place] assists only prior to or following the activity. 4-Supervision or Touching Assistance-helper provides verbal cues and/or touching/steadying and/or contact guard assistance as patient completes activity. Assistance may be provided throughout the activity or intermittently. 3-Partial/Moderate Assistance-helper does LESS THAN HALF the effort. [place] lifts, holds or supports trunk or limbs, but provides less than half the effort. 2-Substantial/Maximal Assistance-helper does MORE THAN HALF the effort. [place] lifts or holds trunk or limbs and provides more than half the effort. 2-Ufaxvjxsg-tficlh does ALL the effort. Patient does none of the effort to complete the activity. Or, the assistance of 2 or more helpers is required for the patient to complete the activity. If activity was not attempted, code reason: 7-Patient Refused. 9-Not Applicable-not attempted and the patient did not perform the activity before the current illness, exacerbation or injury. 10-Not Attempted due to Environmental Limitations-(lack of equipment, weather restraints, etc.). 88-Not Attempted due to Medical Conditions or Safety Concerns. Roll Left to Right (QC): 6 Sit to Lying (QC): 3 Sit to Stand (QC): 4 Chair/Xlu-sv-Aviuu Xfer(QC): 4 Car Transfer (QC): 4 Gait Training Does the Patient Walk?: Yes Distance: 150' x 2 Walk 10 feet (QC): 4 Walk 50 ft with 2 Turns(QC): 4 Walk 150 ft (QC): 4 Walking 10ft/uneven surface-QC: 4 Gait Assistive Device: FWW Wheelchair Training Does the Pt Use a Wheelchair?: No Wheel 50 ft with 2 turns (QC): 9 Wheel 150 ft (QC): 9 Stair Training #of Steps: 1 1 Step (curb) (QC): 3 4 Steps (QC): 88 12 Steps (QC): 88 Balance Picking up an Object (QC): 4 ADL-Treatment Eating (QC): 6 Oral Hygiene (QC): 6 (IND seated in chair.) Shower/Bathe Self (QC): 3 (min A for bottom. CGA in stance at gbs. SC throughout) Upper Body Dressing (QC): 5 (s/u) Lower Body Dressing (QC): 3 (mod A- assist with threading catheter and RLE, then pt able to complete LLE threading in sit, sit to stand with CGA and completes hike with min A (fatigue). ) On/Off Footwear (QC): 2 (max A at this time. ) Toileting Hygiene (QC): 3 (mod A during showering. Pt able to reach to bottom, requires assist spreading bottom for cleaning and for thoroughness.) Assessment/Plan Assessment and Plan Assess & Plan/Chief Complaint Assessment: Critical illness myopathy SIVA now resolved Right ureter stent for obstruction of uncertain etiology AF on Coumadin restarting on Lovenox bridge Valvular heart disease HTN Hypothyroidism Presbycusis Plan: Monitor closely INR check Lovenox bridge IRF protocol 09/20/20: Monitor urinary frequency Monitor O2 INR monitoring Lovenox bridge 09/21/20: Stop Lovenox Monitor BP Stent removal (1) Debility (2) Hypertensive emergency Status: Resolved Resolution Date/Time: 09/12/20 @ 09:59 (3) Hydroureteronephrosis Status: Acute (4) Acute heart failure with preserved ejection fraction (HFpEF) Status: Acute (5) On Coumadin for atrial fibrillation Status: Chronic (6) Acute kidney injury superimposed on chronic kidney disease Status: Acute (7) Obstruction of right ureter Status: Acute (8) Acute respiratory failure with hypoxia Status: Acute (9) Paroxysmal A-fib Status: Chronic (10) Hypothyroidism Status: Chronic (11) Frequent falls Status: Acute (12) UTI (urinary tract infection) Status: Acute (13) Uropathy, obstructive Status: Acute (14) Valvular heart disease Status: Chronic DAYA VILLEGAS DO Sep 21, 2020 11:43
--- NOTE | 2020-09-21 13:44 | Progress Note - Urology ---
Progress Note-Urology Progress Notes/Assess & Plan Progress/Assessment & Plan FREQUENCY AND URGENCY BETTER. TOLERATES LEVBID WELL. PLAN CYSTO AND DC STENT TOMORROW OR TUESDAY. FULLY EXPLAINED TO PATIENT Final Diagnosis RT URETERAL OBSTRUCTION JL BRYSON MD Sep 21, 2020 13:43
--- NOTE | 2020-09-21 14:00 | Progress Note - Cardiology ---
Cardiology SOAP Progress Note Subjective: No cp or palp or syncope No shortness of breath at rest Gen malaise present No n/v/d Leg swelling better Objective: I&O/Vital Signs 09/21/20 09/21/20 09/21/20 09/21/20 05:35 06:53 09:17 11:21 Temp 36.9 Pulse 69 Resp 16 B/P (MAP) 157/67 (97) Pulse Ox 93 92 91 O2 Delivery Room Air Room Air Room Air Room Air 09/20/20 23:59 Intake Total 400 ml Output Total 450 ml Balance -50 ml Weight (Pounds): 171 Weight (Ounces): 9.0 Weight (Calculated Kilograms): 77.630566 Constitutional: AAO x 3, well-developed, well-nourished Respiratory: No accessory muscle use; other (fair to good, bilat air entry) Cardiovascular: regular rate-rhythm, S1 and S2, systolic murmur (3/6 MSM at card base) Gastrointestional: No tender; soft; No guarding, No rebound; audible bowel sounds Extremities: swelling (1-2+ edema of both legs); No clubbing, No cyanosis Neurologic/Psychiatric: oriented x 3, other (she moves all her limbs equally) Skin: No rash on exposed areas, No ulcerations on exposed areas Results/Procedures: Labs Laboratory Tests 09/21/20 04:43: Prothrombin Time 24.4H, INR Comment 2.2H Laboratory Tests 09/20/20 04:47 A/P: Assessment: Recent ac resp failure, ac renal failure and obstructive uropathy, now resolved and pt undergoing Rehab. Coronary artery disease with history of stent to LAD. 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, 2017 in [place] with uneventful deployment of a 26 mm Medtronic Evolut Pro - Last echo 09/10/20: LVEF 80-85, aortic valve prosthesis with peak grad 28 and mean grad 11 and valve area 1/9 sq cm, mod to sev MR, mod TR, PASP 85-90 mmHg Paroxysmal atrial fibrillation and SSS - chronic amiodarone therapy for rhythm control - chronic warfarin therapy for stroke prophylaxis - s/p perm pacemaker for management of bradycardia, managed by Dr Dixon Hypertension Mild bilateral carotid stenosis, last u/s Jul 2018, managed by Dr Dixon Hyperlipidemia, treated with statin H/o hypothyroidism, treated with levo-thyroxine Bilateral leg swelling, likely related to venous insuff and calcium channel umang therapy Plan: * D/c enoxaparin (INR therapeutic) * Continue warfarin * Monitor labs JACINDA ST MD FACP FAC CCDS Sep 21, 2020 14:00
[2020-09-21 17:03] VITALS: BP 142/66
[2020-09-21] MEDS: warFARin 4 MG (COUMADIN) TAB PO SCH (17:12)
[2020-09-21 21:01] VITALS: BP 164/74
[2020-09-22] MEDS: RT-ALBUTEROL INHALER HFA (VENTOLIN HFA) 18 GM IH SCH ×4 (02:00→20:56)
[2020-09-22] MEDS: IPRATROPIUM INHALER (ATROVENT) 12.9 GM INH SCH ×4 (02:01→20:57)
[2020-09-22] MEDS: NYSTATIN CREAM (MYCOSTATIN) 30 GM TUBE TP SCH ×3 (05:48→21:22)
[2020-09-22] MEDS: MICONAZOLE 2% POWDER (DESENEX AF) 90 GM TOP SCH ×2 (05:48→21:21)
[2020-09-22 05:53] VITALS: BP 136/62
[2020-09-22] MEDS: KCL 10 MEQ TAB (MICRO K) PO SCH (05:54)
[2020-09-22] MEDS: hydrALAZINE (APRESOLINE) 25 MG TAB PO SCH ×3 (05:54→21:20)
[2020-09-22 06:34] LABS: BASOPHILS # (AUTO) 0.1 10^3/uL (0.0-0.1); BASOPHILS % (AUTO) 1 % (0-10); EOSINOPHILS # (AUTO) 0.4 10^3/uL (0.0-0.3); EOSINOPHILS % (AUTO) 4 % (0-10); HEMATOCRIT 32 % (35-52); HEMOGLOBIN 10.2 g/dL (11.5-16.0); LYMPHOCYTES # (AUTO) 1.4 10^3/uL (1.0-4.0); LYMPHOCYTES % (AUTO) 15 % (12-44); MEAN CORPUSCULAR HEMOGLOBIN 30 pg (25-34); MEAN CORPUSCULAR HGB CONC 32 g/dL (32-36); MEAN CORPUSCULAR VOLUME 96 fL (80-99); MEAN PLATELET VOLUME 10.8 fL (9.0-12.2); MONOCYTES % (AUTO) 11 % (0-12); NEUTROPHILS # (AUTO) 6.5 10^3/uL (1.8-7.8); NEUTROPHILS % (AUTO) 70 % (42-75); PLATELET COUNT 302 10^3/uL (130-400); WHITE BLOOD COUNT 9.3 10^3/uL (4.3-11.0)
[2020-09-22 06:46] LABS: INR 2.1 (0.8-1.4); PROTHROMBIN TIME PATIENT 23.7 SEC (12.2-14.7)
[2020-09-22 06:48] LABS: ALBUMIN 3.5 GM/DL (3.2-4.5); POTASSIUM 3.7 MMOL/L (3.6-5.0)
[2020-09-22 06:50] LABS: CALCIUM 8.9 MG/DL (8.5-10.1)
[2020-09-22 06:51] LABS: TOTAL PROTEIN 6.7 GM/DL (6.4-8.2)
[2020-09-22 06:53] LABS: BILIRUBIN,TOTAL 0.4 MG/DL (0.1-1.0)
[2020-09-22 06:54] LABS: CREATININE SERUM 0.92 MG/DL (0.60-1.30)
--- NOTE | 2020-09-22 07:00 | PM&R Progress Note ---
Subjective HPI/CC On Admission Date Seen by Provider: Sep 22, 2020 Time Seen by Provider: 11:00 Subjective/Events-last exam 09/22/20: Patient doing very well Stent will be removed today by Dr Zayas No pain Labs reviewed 09/21/20: Patient doing well Levsin for bladder spasms order by Dr Zayas Stent removal will be this week INR 2.[address] Horan restarted Lasix and a few other meds and DC Norvasc ASA daily 09/20/20: Patient settling in well No pain reported Cardiology consulted for edema Lasix and K+ taken at home will likely restart INR monitoring Lovenox bridge O2 maintained Urinary frequency noted Review of Systems General: Fatigue, Malaise Neurological: Weakness Objective Exam Vital Signs Vital Signs Date Time Temp Pulse Resp B/P (MAP) Pulse Ox O2 Delivery O2 Flow Rate FiO2 09/23/20 03:15 91 Room Air 09/22/20 18:28 36.8 82 20 134/63 (86) Capillary Refill : General Appearance: No Apparent Distress, WD/WN, Chronically ill HEENT: PERRL/EOMI, Normal ENT Inspection, Pharynx Normal, Other ([place] severe) Neck: Full Range of Motion, Normal Inspection, Non Tender, Supple, Carotid Bruit Respiratory: Chest Non Tender, Lungs Clear, Normal Breath Sounds, No Accessory Muscle Use, No Respiratory Distress Cardiovascular: No Gallop, No JVD, Normal Peripheral Pulses, Systolic Murmur, Irregularly Irregular Gastrointestinal: Normal Bowel Sounds, No Organomegaly, No Pulsatile Mass, Non Tender, Soft Back: Normal Inspection, No CVA Tenderness, No Vertebral Tenderness Extremity: Normal Capillary Refill, Normal Inspection, Normal Range of Motion, Non Tender, No Calf Tenderness, Pedal Edema Neurologic/Psychiatric: Alert, Oriented x3, No Motor/Sensory Deficits, Normal Mood/Affect, Abnormal Gait, Motor Weakness (generalized weakness lower extremities) Skin: Normal Color, Warm/Dry Lymphatic: No Adenopathy Results/Procedures Lab Laboratory Tests 09/23/20 06:10 Patient resulted labs reviewed. FIM Transfers Therapy Code Descriptions/Definitions Functional [place] Measure: 0=Not Assessed/NA 4=Minimal Assistance 1=Total Assistance 5=Supervision or Setup 2=Maximal Assistance 6=Modified [place] 3=Moderate Assistance 7=Complete IndependenceSCALE: Activities may be completed with or without assistive devices. 9-Yoasmlfxib-sotjjly completes the activity by him/herself with no assistance from a helper. 5-Set-up or Clean-up Assistance-helper sets up or cleans up; patient completes activity. [place] assists only prior to or following the activity. 4-Supervision or Touching Assistance-helper provides verbal cues and/or touching/steadying and/or contact guard assistance as patient completes activity. Assistance may be provided throughout the activity or intermittently. 3-Partial/Moderate Assistance-helper does LESS THAN HALF the effort. [place] lifts, holds or supports trunk or limbs, but provides less than half the effort. 2-Substantial/Maximal Assistance-helper does MORE THAN HALF the effort. [place] lifts or holds trunk or limbs and provides more than half the effort. 4-Lzrroxfxq-ntgfjq does ALL the effort. Patient does none of the effort to complete the activity. Or, the assistance of 2 or more helpers is required for the patient to complete the activity. If activity was not attempted, code reason: 7-Patient Refused. 9-Not Applicable-not attempted and the patient did not perform the activity before the current illness, exacerbation or injury. 10-Not Attempted due to Environmental Limitations-(lack of equipment, weather restraints, etc.). 88-Not Attempted due to Medical Conditions or Safety Concerns. Roll Left to Right (QC): 6 Sit to Lying (QC): 3 Sit to Stand (QC): 4 Chair/Wjb-qa-Xuhuv Xfer(QC): 4 Car Transfer (QC): 4 Gait Training Does the Patient Walk?: Yes Distance: 150' x 2 Walk 10 feet (QC): 4 Walk 50 ft with 2 Turns(QC): 4 Walk 150 ft (QC): 4 Walking 10ft/uneven surface-QC: 4 Gait Assistive Device: FWW Wheelchair Training Does the Pt Use a Wheelchair?: No Wheel 50 ft with 2 turns (QC): 9 Wheel 150 ft (QC): 9 Stair Training #of Steps: 1 1 Step (curb) (QC): 3 4 Steps (QC): 88 12 Steps (QC): 88 Balance Picking up an Object (QC): 4 ADL-Treatment Eating (QC): 6 Oral Hygiene (QC): 6 (IND seated in chair.) Shower/Bathe Self (QC): 3 (min A for bottom. CGA in stance at gbs. SC throughout) Upper Body Dressing (QC): 5 (s/u) Lower Body Dressing (QC): 3 (mod A- assist with threading catheter and RLE, then pt able to complete LLE threading in sit, sit to stand with CGA and completes hike with min A (fatigue). ) On/Off Footwear (QC): 2 (max A at this time. ) Toileting Hygiene (QC): 3 (mod A during showering. Pt able to reach to bottom, requires assist spreading bottom for cleaning and for thoroughness.) Assessment/Plan Assessment and Plan Assess & Plan/Chief Complaint Assessment: Critical illness myopathy SIVA now resolved Right ureter stent for obstruction of uncertain etiology AF on Coumadin restarting on Lovenox bridge Valvular heart disease HTN Hypothyroidism Presbycusis Plan: Monitor closely INR check Lovenox bridge IRF protocol 09/20/20: Monitor urinary frequency Monitor O2 INR monitoring Lovenox bridge 09/21/20: Stop Lovenox Monitor BP Stent removal 09/22/20: Stent removal today Monitor closely Labs reviewed (1) Debility (2) Hypertensive emergency Status: Resolved Resolution Date/Time: 09/12/20 @ 09:59 (3) Hydroureteronephrosis Status: Acute (4) Acute heart failure with preserved ejection fraction (HFpEF) Status: Acute (5) On Coumadin for atrial fibrillation Status: Chronic (6) Acute kidney injury superimposed on chronic kidney disease Status: Acute (7) Obstruction of right ureter Status: Acute (8) Acute respiratory failure with hypoxia Status: Acute (9) Paroxysmal A-fib Status: Chronic (10) Hypothyroidism Status: Chronic (11) Frequent falls Status: Acute (12) UTI (urinary tract infection) Status: Acute (13) Uropathy, obstructive Status: Acute (14) Valvular heart disease Status: Chronic DAYA VILLEGAS DO Sep 22, 2020 07:00
[2020-09-22] MEDS: LEVOTHYROXINE 75 MCG (LEVOTHROID) TABLET PO SCH (08:21)
[2020-09-22] MEDS: DOCUSATE SODIUM 100 MG (COLACE) CAP PO SCH ×2 (08:21→21:20)
[2020-09-22] MEDS: ASPIRIN 81 MG CHEW (CHILDREN'S ASA) PO SCH (08:21)
[2020-09-22] MEDS: CARVEDILOL 12.5 MG (COREG) TABLET PO SCH ×2 (08:21→21:21)
[2020-09-22] MEDS: FUROSEMIDE 20 MG (LASIX) TAB PO SCH (08:21)
[2020-09-22] MEDS: HYOSCYAMINE 0.375 MG (LEVBID) TAB PO SCH ×2 (08:21→21:19)
[2020-09-22] MEDS: SENNOSIDES 8.6 MG (SENOKOT) TAB PO SCH ×2 (08:22→21:20)
[2020-09-22] MEDS: polyethylene glycoL POWDER 17 GM (MIRALAX) PACK PO SCH ×2 (08:22→21:20)
[2020-09-22] MEDS: SENNA W/DOCUSATE (SENOKOT S) TABLET PO SCH ×2 (08:22→21:20)
--- NOTE | 2020-09-22 09:17 | Physical Therapy Daily Note ---
PT Daily Note-Current Subjective Pt up in chair, dressed and agreeable to PT. Pt denies pain. Pt reports she went down to the PT gym with her nurses yesterday and rode the bike 3 times. Pt says "I might get to go home this week after they get this stint out." Pt c/o "I have to stop. I am worn out." during ambulation back to room. Pt also stated during ambulation "This R leg feels heavy. It always did feel heavier than the L." Mental Status Patient Orientation: Person, Place, Situation Transfers SCALE: Activities may be completed with or without assistive devices. 7-Denovdxdlw-bomtejo completes the activity by him/herself with no assistance from a helper. 5-Set-up or Clean-up Assistance-helper sets up or cleans up; patient completes activity. [place] assists only prior to or following the activity. 4-Supervision or Touching Assistance-helper provides verbal cues and/or touching/steadying and/or contact guard assistance as patient completes activity. Assistance may be provided throughout the activity or intermittently. 3-Partial/Moderate Assistance-helper does LESS THAN HALF the effort. [place] lifts, holds or supports trunk or limbs, but provides less than half the effort. 2-Substantial/Maximal Assistance-helper does MORE THAN HALF the effort. [place] lifts or holds trunk or limbs and provides more than half the effort. 0-Flsjmdsag-ppgnfz does ALL the effort. Patient does none of the effort to com plete the activity. Or, the assistance of 2 or more helpers is required for the patient to complete the activity. If activity was not attempted, code reason: 7-Patient Refused. 9-Not Applicable-not attempted and the patient did not perform the activity before the current illness, exacerbation or injury. 10-Not Attempted due to Environmental Limitations-(lack of equipment, weather restraints, etc.). 88-Not Attempted due to Medical Conditions or Safety Concerns. Performed sit to stand x 5 bouts. Gait Training Gait Assistive Device: FWW PT amb with FWW and CGA 1 x 150ft, 2 x 75ft. 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 Exercises Supine Ex: Ankle pumps, Heel Slides Supine Reps: 10 Seated Therapy Exercises: Long arc quads Seated Reps: 10 NuStep Minutes: 9 NuStep Workload: 4 Assessment Current Status: Fair Progress Pt reports she is feeling stronger. Pt required min A donning tennis shoes due to c/o SOB by bending over reaching for shoes. Pt (Hank) JOSE MANUEL fatigued easily during side stepping requiring standing rest breaks. 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 Overall, pt demonstrated good performance but did fatigue easily. Balance unsteady at times but pt able to correct. Pt back to room in recliner with call light and all needs met. PT Short Term Goals Short Term Goals Time Frame: Sep 26, 2020 Roll Left & Right: 6 Sit to lyin Lying to sitting on side of be: 4 Sit to stand: 5 Chair/hfw-fp-psozz transfer: 5 Walk 10 feet: 5 Walk 50 feet with two turns: 5 Walk 150 feet: 5 PT Mcc Goals [employer] Goals PT Mcc Goals Time Frame: Oct 10, 2020 Roll Left & Right (QC): 6 Sit to Lying (QC): 6 Lying-Sitting on Side/Bed(QC): 6 Sit to Stand (QC): 6 Chair/Ret-fd-[place] Xfer(QC): 6 Toilet Transfer (QC): 6 Car Transfer (QC): 6 Does the Patient Walk: Yes Walk 10 feet (QC): 6 Walk 50ft with 2 Turns (QC): 6 Walk 150 ft (QC): 6 Walking 10ft on Uneven Surface: 6 1 Step (curb) (QC): 4 4 Steps (QC): 4 12 Steps (QC): 88 Picking up an Object (QC): 5 Wheel 50 feet with 2 turns (QC: 9 Wheel 150 feet: 9 PT Plan Treatment/Plan Treatment Plan: Continue Plan of Care Treatment Plan: Bed Mobility, Education, Functional Activity Gilda, Functional Strength, Group Therapy, Gait, Safety, Therapeutic Exercise, Transfers Treatment Duration: Oct 10, 2020 Frequency: At least 5 of 7 days/Wk (IRF) Estimated Hrs Per Day: 1.5 hours per day Patient and/or Family Agrees t: Yes Time/GCodes Time In: 815 Time Out: 900 Total Billed Treatment Time: 45 Total Billed Treatment 1, ther ex 25min, Gait x 20min FRANKLIN TAMAYO CPTA Sep 22, 2020 09:17
--- NOTE | 2020-09-22 10:14 | Occupational Ther Daily Note ---
OT Current Status-Daily Note Subjective Pt AxO. Finished with PT 15 min prior. Pt states fatigued/ tired due to sleeping poorly (states mind, not body is tired). pt agrees to tx. Denies ADLs, stating showered yesterday and donned clothing this am. Pt seen for afternoon session, states immense fatigue. Requires increased time for responses and looses sentences at times, requiring increased time and redirection to start of thought. Mental Status/Objective Patient Orientation: Person, Place, Situation ADL-Treatment Therapy Code Descriptions/Definitions Functional [place] Measure: 0=Not Assessed/NA 4=Minimal Assistance 1=Total Assistance 5=Supervision or Setup 2=Maximal Assistance 6=Modified [place] 3=Moderate Assistance 7=Complete IndependenceSCALE: Activities may be completed with or without assistive devices. 4-Iqvmlgynms-lmgcfew completes the activity by him/herself with no assistance from a helper. 5-Set-up or Clean-up Assistance-helper sets up or cleans up; patient completes activity. [place] assists only prior to or following the activity. 4-Supervision or Touching Assistance-helper provides verbal cues and/or touching/steadying and/or contact guard assistance as patient completes activity. Assistance may be provided throughout the activity or intermittently. 3-Partial/Moderate Assistance-helper does LESS THAN HALF the effort. [place] lifts, holds or supports trunk or limbs, but provides less than half the effort. 2-Substantial/Maximal Assistance-helper does MORE THAN HALF the effort. [place] lifts or holds trunk or limbs and provides more than half the effort. 0-Ustjdicjp-yjgzxm does ALL the effort. Patient does none of the effort to complete the activity. Or, the assistance of 2 or more helpers is required for the patient to complete the activity. If activity was not attempted, code reason: 7-Patient Refused. 9-Not Applicable-not attempted and the patient did not perform the activity before the current illness, exacerbation or injury. 10-Not Attempted due to Environmental Limitations-(lack of equipment, weather restraints, etc.). 88-Not Attempted due to Medical Conditions or Safety Concerns. Eating (QC): 6 (states completed with IND. ) Oral Hygiene (QC): 6 (states completed with IND. ) On/Off Footwear: 6 Toileting Hygiene (QC): 6 (completes with IND on toilet.) Toilet Transfer (QC): 4 (SUP, use of walker.) Other Treatment [id number]: Pt ambulates to kitchen area. Educated on supporting UE on countertop rather than walker during reaching tasks. Pt completes reaching 10x through upper/ lower cabinets, fridge/ freezer, and gets glass casserole dish from oven with cues to complete from side. Pt safe during this activity. Pt requires rest break after task. Pt sits EOM, completes standing/ reaching task, picking 5 cones up from floor with CGA, no LOB. Pt stands at mat, completes throwing/ balance task in stance with SBA. Picks up from floor, use of sap fico business analyst for hard to reach areas. No LOB. Pt fatigues with increased tasks. Pt completes sitting stability/ core activity with wiggle cushion under bottom. Pt demonstrates fair balance with LOB 2x, CGA throughout with education on purpose. Pt returns to room, stating fatigue. Completes toileting as outlined, sits in recliner with all needs met. Pt completes ambulation from toilet to chair with SBA. Donning of BUE 1# wrist weights to complete bimanual senior instructor strength task with graded colored clothes pins- pt completes without difficulty. Pt is instructed to complete while finding an item of each color selected, few repetitive items though pt aware of this. Pt requires increased time for thought and problem solving. Pt denies OOB, left in recliner with all needs met, call light in reach. Education OT Patient Education: Correct positioning, Exercise program, Home exercise program, Progress toward Goal/Update tx plan, Purpose of tx/functional activities, Safety issues, Transfer techniques, Use of adapted equipment Teaching Recipient: Patient Teaching Methods: Demonstration, Discussion Response to Teaching: Verbalize Understanding, Return Demonstration, Reinforcement Needed OT Short Term Goals Short Term Goals Toileting hygiene: 4 Shower/bathe self: 4 Upper body dressin Lower body dressin Putting on/taking off footwear: 3 OT Databases Software Consultant Goals Databases Software Consultant Goals Time Frame: Oct 03, 2020 Eating (QC): 6 Oral Hygiene (QC): 6 Toileting Hygiene (QC): 6 Shower/Bathe Self (QC): 6 Upper Body Dressing (QC): 6 Lower Body Dressing (QC): 6 On/Off Footwear (QC): 6 Additional Goals: 1-Demonstrate ADL Tasks, 2-Verbalize Understanding, 3- ImproveStrength/Gilda 1=Demonstrate adherence to instructed precautions during ADL tasks. 2=Patient will verbalize/demonstrate understanding of assistive devices/mo difications for ADL. 3=Patient will improve strength/tolerance for activity to enable patient to perform ADL's. OT Education/Plan Problem List/Assessment Assessment: Decreased Activ Tolerance, Decreased UE Strength, Dependent Transfers, Edema, Impaired Funct Balance, Impaired I ADL's, Impaired Self-Care Skills Discharge Recommendations Plan/Recommendations: Continue POC Therapy Discharge Recommendati: Home & Family Treatment Plan/Plan of Care Treatment,Training & Education: Yes Patient would benefit from OT for education, treatment and training to promote independence in ADL's, mobility, safety and/or upper extremity function for ADL's. Plan of Care: ADL Retraining, Caregiver Training, Concurrent Therapy, Functional Mobility, Group Exercise/Act as Ind, UE Funct Exercise/Act Treatment Duration: Oct 03, 2020 Frequency: At least 5 of 7 days/Wk (IRF) Estimated Hrs Per Day: 1.5 hours per day Agreement: Yes Rehab Potential: Fair Time/GCodes Start Time: 09:15 (1315) Stop Time: 10:15 (1345) Total Time Billed (hr/min): 90 Billed Treatment Time 1, EX 3, ADL = 60 1, EX 2= 30 Total: 90 JAMES WHITEHEAD OTR Sep 22, 2020 10:14
--- NOTE | 2020-09-22 11:05 | Progress Note - Cardiology ---
Cardiology SOAP Progress Note Objective: I&O/Vital Signs 09/24/20 09/24/20 09/24/20 09/24/20 02:50 02:50 06:23 08:09 Temp 37.1 Pulse 94 Resp 17 B/P (MAP) 141/64 (89) Pulse Ox 98 93 94 O2 Delivery Room Air Room Air Room Air Room Air 09/24/20 09:10 O2 Delivery Room Air 09/24/20 00:00 Intake Total 1560 ml Output Total 700 ml Balance 860 ml Weight (Pounds): 171 Weight (Ounces): 9.0 Weight (Calculated Kilograms): 77.388805 Constitutional: AAO x 3, well-developed, well-nourished Respiratory: No accessory muscle use; other (fair to good, bilat air entry) Cardiovascular: regular rate-rhythm, S1 and S2, systolic murmur (3/6 MSM at card base) Gastrointestional: No tender; soft; No guarding, No rebound; audible bowel sounds Extremities: swelling (1-2+ edema of both legs); No clubbing, No cyanosis Neurologic/Psychiatric: oriented x 3, other (she moves all her limbs equally) Skin: No rash on exposed areas, No ulcerations on exposed areas Results/Procedures: Labs Laboratory Tests 09/24/20 05:42: Prothrombin Time 27.7H, INR Comment 2.5H, Total Bilirubin 0.3, Direct Bilirubin 0.1, Indirect Bilirubin 0.2, Aspartate Amino Transf (AST/SGOT) 42H, Alanine Aminotransferase (ALT/SGPT) 52, Alkaline Phosphatase 100, Total Protein 6.1L, Albumin 3.2 A/P: Assessment: Recent ac resp failure, ac renal failure and obstructive uropathy, now resolved and pt undergoing Rehab. Coronary artery disease with history of stent to LAD. 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, 2017 in [place] with uneventful deployment of a 26 mm Medtronic Evolut Pro - Last echo 09/10/20: LVEF 80-85, aortic valve prosthesis with peak grad 28 and mean grad 11 and valve area 1/9 sq cm, mod to sev MR, mod TR, PASP 85-90 mmHg Paroxysmal atrial fibrillation and SSS - chronic amiodarone therapy for rhythm control - chronic warfarin therapy for stroke prophylaxis - s/p perm pacemaker for management of bradycardia, managed by Dr Dixon Hypertension Mild bilateral carotid stenosis, last u/s Jul 2018, managed by Dr Dixon Hyperlipidemia, treated with statin H/o hypothyroidism, treated with levo-thyroxine Bilateral leg swelling, likely related to venous insuff and calcium channel umang therapy Mild liver enzyme elevation of undetermined etiology - monitor Plan: * D/c enoxaparin (INR therapeutic) * Continue warfarin * Monitor labs * Mild liver enzyme elevation of undetermined etiology - hold statin for now AYAZ GANNON Sep 22, 2020 11:05
--- NOTE | 2020-09-22 11:56 | Physical Therapy Daily Note ---
PT Daily Note-Current Subjective Pt agreeable. Pt sitting on bed upon arrival. Pt states "please let me go home" several times. Pt denies pain. Mental Status Patient Orientation: Person, Place, Situation Transfers SCALE: Activities may be completed with or without assistive devices. 5-Fmywglsoqq-bswdsxl completes the activity by him/herself with no assistance from a helper. 5-Set-up or Clean-up Assistance-helper sets up or cleans up; patient completes activity. [place] assists only prior to or following the activity. 4-Supervision or Touching Assistance-helper provides verbal cues and/or touching/steadying and/or contact guard assistance as patient completes activity. Assistance may be provided throughout the activity or intermittently. 3-Partial/Moderate Assistance-helper does LESS THAN HALF the effort. [place] lifts, holds or supports trunk or limbs, but provides less than half the effort. 2-Substantial/Maximal Assistance-helper does MORE THAN HALF the effort. [place] lifts or holds trunk or limbs and provides more than half the effort. 7-Omvohzkxb-tnplsp does ALL the effort. Patient does none of the effort to complete the activity. Or, the assistance of 2 or more helpers is required for the patient to complete the activity. If activity was not attempted, code reason: 7-Patient Refused. 9-Not Applicable-not attempted and the patient did not perform the activity before the current illness, exacerbation or injury. 10-Not Attempted due to Environmental Limitations-(lack of equipment, weather restraints, etc.). 88-Not Attempted due to Medical Conditions or Safety Concerns. Mod (I) all levels. Pt used BR mod (I). Exercises Supine Ex: Ankle pumps, Quad Set, Glut sets, Heel Slides, Short Arc Quads, Hip abd/add Supine Reps: 20 Treatments Practiced sit to stand, no support, amb 10 ft forward/turn around/ amb 10ft back to bed and sit down- Practiced this 5x with CGA. Vc's for safe turns and sit down. Otherwise, pt was steady and demonstrated safe mobility. Assessment Current Status: Good Progress Pt (L) LE fatigues easily with ther ex. Pt kevin above well with rest breaks as needed. Pt resting EOB with call light and significant other present in the room. Pt was reminded to call nurse and to not get up without someone present. Pt agreeable. All needs met at this time. PT Short Term Goals Short Term Goals Time Frame: Sep 26, 2020 Roll Left & Right: 6 Sit to lyin Lying to sitting on side of be: 4 Sit to stand: 5 Chair/djk-ch-gtkfj transfer: 5 Walk 10 feet: 5 Walk 50 feet with two turns: 5 Walk 150 feet: 5 PT [facility] Goals [facility] Goals PT Physicians Assistant Goals Time Frame: Oct 10, 2020 Roll Left & Right (QC): 6 Sit to Lying (QC): 6 Lying-Sitting on Side/Bed(QC): 6 Sit to Stand (QC): 6 Chair/Dcw-jv-Dtibn Xfer(QC): 6 Toilet Transfer (QC): 6 Car Transfer (QC): 6 Does the Patient Walk: Yes Walk 10 feet (QC): 6 Walk 50ft with 2 Turns (QC): 6 Walk 150 ft (QC): 6 Walking 10ft on Uneven Surface: 6 1 Step (curb) (QC): 4 4 Steps (QC): 4 12 Steps (QC): 88 Picking up an Object (QC): 5 Wheel 50 feet with 2 turns (QC: 9 Wheel 150 feet: 9 PT Plan Treatment/Plan Treatment Plan: Continue Plan of Care Treatment Plan: Bed Mobility, Education, Functional Activity [place], Functional Strength, Group Therapy, Gait, Safety, Therapeutic Exercise, Transfers Treatment Duration: Oct 10, 2020 Frequency: At least 5 of 7 days/Wk (IRF) Estimated Hrs Per Day: 1.5 hours per day Patient and/or Family Agrees t: Yes Time/GCodes Time In: 1100 Time Out: 1145 Total Billed Treatment Time: 45 Total Billed Treatment 1, ther ex 30', Gait 15' FRANKLIN TAMAYO Sep 22, 2020 11:56
[2020-09-22 13:30] VITALS: BP 132/60
--- NOTE | 2020-09-22 17:07 | Progress Note - Cardiology ---
Cardiology SOAP Progress Note Subjective: Gen malaise and weakness, slowly improving Leg swelling has improved considerably No cp or palp or syncope or shortness of breath at rest No n/v/d Objective: I&O/Vital Signs 09/22/20 09/22/20 09/22/20 09/22/20 05:53 06:29 09:00 13:30 Temp 37.0 Pulse 76 75 Resp 16 B/P (MAP) 136/62 (86) 132/60 (84) Pulse Ox 91 95 O2 Delivery Room Air Room Air Room Air 09/22/20 14:57 Pulse Ox 92 O2 Delivery Room Air 09/22/20 00:00 Intake Total 620 ml Output Total 1325 ml Balance -705 ml Weight (Pounds): 171 Weight (Ounces): 9.0 Weight (Calculated Kilograms): 77.710981 Constitutional: AAO x 3, well-developed, well-nourished Respiratory: No accessory muscle use; other (fair to good, bilat air entry) Cardiovascular: regular rate-rhythm, S1 and S2, systolic murmur (3/6 MSM at card base) Gastrointestional: No tender; soft; No guarding, No rebound; audible bowel sounds Extremities: swelling (0-1+ edema of both legs); No clubbing, No cyanosis Neurologic/Psychiatric: oriented x 3, other (she moves all her limbs equally) Skin: No rash on exposed areas, No ulcerations on exposed areas Results/Procedures: Labs Laboratory Tests 09/22/20 06:12: White Blood Count 9.3, Red Blood Count 3.38L, Hemoglobin 10.2L, Hematocrit 32L, Mean Corpuscular Volume 96, Mean Corpuscular Hemoglobin 30, Mean Corpuscular Hemoglobin Concent 32, Red Cell Distribution Width 13.6, Platelet Count 302, Mean Platelet Volume 10.8, Immature Granulocyte % (Auto) 0, Neutrophils (%) (Auto) 70, Lymphocytes (%) (Auto) 15, Monocytes (%) (Auto) 11, Eosinophils (%) (Auto) 4, Basophils (%) (Auto) 1, Neutrophils # (Auto) 6.5, Lymphocytes # (Auto) 1.4, Monocytes # (Auto) 1.0, Eosinophils # (Auto) 0.4H, Basophils # (Auto) 0.1, Immature Granulocyte # (Auto) 0.0, Prothrombin Time 23.7H, INR Comment 2.1H, Sodium Level 142, Potassium Level 3.7, Chloride Level 105, Carbon Dioxide Level 27, Anion Gap 10, Blood Urea Nitrogen 9, Creatinine 0.92, Estimat Glomerular Filtration Rate 59, BUN/Creatinine Ratio 10, Glucose Level 96, Calcium Level 8.9, Corrected Calcium 9.3, Total Bilirubin 0.4, Aspartate Amino Transf (AST/SGOT) 67H, Alanine Aminotransferase (ALT/SGPT) 58H, Alkaline Phosphatase 111, Total Protein 6.7, Albumin 3.5 Laboratory Tests 09/22/20 06:12 A/P: Assessment: Recent ac resp failure, ac renal failure and obstructive uropathy, now resolved and pt undergoing Rehab. Coronary artery disease with history of stent to LAD. 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, 2017 in [place] with uneventful deployment of a 26 mm Medtronic Evolut Pro - Last echo 09/10/20: LVEF 80-85, aortic valve prosthesis with peak grad 28 and mean grad 11 and valve area 1/9 sq cm, mod to sev MR, mod TR, PASP 85-90 mmHg Paroxysmal atrial fibrillation and SSS - chronic amiodarone therapy for rhythm control - chronic warfarin therapy for stroke prophylaxis - s/p perm pacemaker for management of bradycardia, managed by Dr Dioxn Hypertension Mild bilateral carotid stenosis, last u/s Jul 2018, managed by Dr Dixon Hyperlipidemia, treated with statin H/o hypothyroidism, treated with levo-thyroxine Bilateral leg swelling, likely related to venous insuff and calcium channel umang therapy Mild liver enzyme elevation of undetermined etiology - monitor Plan: * D/c enoxaparin (INR therapeutic) * Continue warfarin * Monitor labs * Mild liver enzyme elevation of undetermined etiology - hold statin for now JACINDA ST MD FACP FAC CCDS Sep 22, 2020 17:07
[2020-09-22] MEDS: warFARin 4 MG (COUMADIN) TAB PO SCH (17:23)
[2020-09-22 18:28] VITALS: BP 134/63
[2020-09-23] MEDS: RT-ALBUTEROL INHALER HFA (VENTOLIN HFA) 18 GM IH SCH ×4 (03:15→21:24)
[2020-09-23] MEDS: IPRATROPIUM INHALER (ATROVENT) 12.9 GM INH SCH ×4 (03:15→21:24)
[2020-09-23 06:15] VITALS: BP 133/62
[2020-09-23] MEDS: KCL 10 MEQ TAB (MICRO K) PO SCH (06:48)
[2020-09-23] MEDS: hydrALAZINE (APRESOLINE) 25 MG TAB PO SCH ×3 (06:48→21:20)
[2020-09-23 06:55] LABS: CREATININE SERUM 1.04 MG/DL (0.60-1.30)
--- NOTE | 2020-09-23 08:47 | Progress Note - Urology ---
Progress Note-Urology Progress Notes/Assess & Plan Progress/Assessment & Plan DOING WELL FALCON. NO FLANK PAIN. BUN AND CREAT STABLE Final Diagnosis RT URETERAL OBSTRUCTION JL BRYSON MD Sep 23, 2020 08:47
[2020-09-23] MEDS: ASPIRIN 81 MG CHEW (CHILDREN'S ASA) PO SCH (09:23)
[2020-09-23] MEDS: CARVEDILOL 12.5 MG (COREG) TABLET PO SCH ×2 (09:23→21:20)
[2020-09-23] MEDS: FUROSEMIDE 20 MG (LASIX) TAB PO SCH (09:24)
[2020-09-23] MEDS: HYOSCYAMINE 0.375 MG (LEVBID) TAB PO SCH ×2 (09:24→21:20)
[2020-09-23] MEDS: LEVOTHYROXINE 75 MCG (LEVOTHROID) TABLET PO SCH (09:24)
[2020-09-23] MEDS: MICONAZOLE 2% POWDER (DESENEX AF) 90 GM TOP SCH ×2 (09:24→21:36)
[2020-09-23] MEDS: NYSTATIN CREAM (MYCOSTATIN) 30 GM TUBE TP SCH ×3 (09:25→21:36)
[2020-09-23] MEDS: DOCUSATE SODIUM 100 MG (COLACE) CAP PO SCH ×2 (09:28→21:24)
[2020-09-23] MEDS: SENNA W/DOCUSATE (SENOKOT S) TABLET PO SCH ×2 (09:28→22:13)
[2020-09-23] MEDS: polyethylene glycoL POWDER 17 GM (MIRALAX) PACK PO SCH ×2 (09:28→19:41)
[2020-09-23] MEDS: SENNOSIDES 8.6 MG (SENOKOT) TAB PO SCH ×2 (09:29→19:42)
--- NOTE | 2020-09-23 11:17 | PM&R Progress Note ---
Subjective HPI/CC On Admission Date Seen by Provider: Sep 23, 2020 Time Seen by Provider: 11:30 Subjective/Events-last exam 09/23/20: Patient doing well Stent removed yesterday Hematuria improved No pain reported Participation in therapy is good 09/22/20: Patient doing very well Stent will be removed today by Dr Zayas No pain Labs reviewed 09/21/20: Patient doing well Levsin for bladder spasms order by Dr Zayas Stent removal will be this week INR 2.[address] Horan restarted Lasix and a few other meds and DC Norvasc ASA daily 09/20/20: Patient settling in well No pain reported Cardiology consulted for edema Lasix and K+ taken at home will likely restart INR monitoring Lovenox bridge O2 maintained Urinary frequency noted Review of Systems General: Fatigue, Malaise Neurological: Weakness Objective Exam Vital Signs Vital Signs Date Time Temp Pulse Resp B/P (MAP) Pulse Ox O2 Delivery O2 Flow Rate FiO2 09/24/20 06:23 37.1 94 17 141/64 (89) 93 Room Air Capillary Refill : General Appearance: No Apparent Distress, WD/WN, Chronically ill HEENT: PERRL/EOMI, Normal ENT Inspection, Pharynx Normal, Other ([place] severe) Neck: Full Range of Motion, Normal Inspection, Non Tender, Supple, Carotid Bruit Respiratory: Chest Non Tender, Lungs Clear, Normal Breath Sounds, No Accessory Muscle Use, No Respiratory Distress Cardiovascular: No Gallop, No JVD, Normal Peripheral Pulses, Systolic Murmur, Irregularly Irregular Gastrointestinal: Normal Bowel Sounds, No Organomegaly, No Pulsatile Mass, Non Tender, Soft Back: Normal Inspection, No CVA Tenderness, No Vertebral Tenderness Extremity: Normal Capillary Refill, Normal Inspection, Normal Range of Motion, Non Tender, No Calf Tenderness, Pedal Edema Neurologic/Psychiatric: Alert, Oriented x3, No Motor/Sensory Deficits, Normal Mood/Affect, Abnormal Gait, Motor Weakness (generalized weakness lower extremities) Skin: Normal Color, Warm/Dry Lymphatic: No Adenopathy Results/Procedures Lab Patient resulted labs reviewed. FIM Transfers Therapy Code Descriptions/Definitions Functional [place] Measure: 0=Not Assessed/NA 4=Minimal Assistance 1=Total Assistance 5=Supervision or Setup 2=Maximal Assistance 6=Modified [place] 3=Moderate Assistance 7=Complete IndependenceSCALE: Activities may be completed with or without assistive devices. 7-Emlrlykvrq-ekduvdr completes the activity by him/herself with no assistance from a helper. 5-Set-up or Clean-up Assistance-helper sets up or cleans up; patient completes activity. [place] assists only prior to or following the activity. 4-Supervision or Touching Assistance-helper provides verbal cues and/or touching/steadying and/or contact guard assistance as patient completes activity. Assistance may be provided throughout the activity or intermittently. 3-Partial/Moderate Assistance-helper does LESS THAN HALF the effort. [place] lifts, holds or supports trunk or limbs, but provides less than half the effort. 2-Substantial/Maximal Assistance-helper does MORE THAN HALF the effort. [place] lifts or holds trunk or limbs and provides more than half the effort. 2-Aalbqfsqn-zemyqr does ALL the effort. Patient does none of the effort to complete the activity. Or, the assistance of 2 or more helpers is required for the patient to complete the activity. If activity was not attempted, code reason: 7-Patient Refused. 9-Not Applicable-not attempted and the patient did not perform the activity before the current illness, exacerbation or injury. 10-Not Attempted due to Environmental Limitations-(lack of equipment, weather restraints, etc.). 88-Not Attempted due to Medical Conditions or Safety Concerns. Roll Left to Right (QC): 6 Sit to Lying (QC): 3 Sit to Stand (QC): 4 Chair/Ouf-gs-Vskou Xfer(QC): 4 Car Transfer (QC): 4 Gait Training Does the Patient Walk?: Yes Distance: 150' x 2 Walk 10 feet (QC): 4 Walk 50 ft with 2 Turns(QC): 4 Walk 150 ft (QC): 4 Walking 10ft/uneven surface-QC: 4 Gait Assistive Device: FWW Wheelchair Training Does the Pt Use a Wheelchair?: No Wheel 50 ft with 2 turns (QC): 9 Wheel 150 ft (QC): 9 Stair Training #of Steps: 1 1 Step (curb) (QC): 3 4 Steps (QC): 88 12 Steps (QC): 88 Balance Picking up an Object (QC): 4 ADL-Treatment Eating (QC): 6 (states completed with IND. ) Oral Hygiene (QC): 6 (states completed with IND. ) Shower/Bathe Self (QC): 3 (min A for bottom. CGA in stance at gbs. SC throughout) Upper Body Dressing (QC): 5 (s/u) Lower Body Dressing (QC): 3 (mod A- assist with threading catheter and RLE, then pt able to complete LLE threading in sit, sit to stand with CGA and completes hike with min A (fatigue). ) On/Off Footwear (QC): 6 Toileting Hygiene (QC): 6 (completes with IND on toilet.) Toilet Transfer (QC): 4 (SUP, use of walker.) Assessment/Plan Assessment and Plan Assess & Plan/Chief Complaint Assessment: Critical illness myopathy SIVA now resolved Right ureter stent for obstruction of uncertain etiology AF on Coumadin restarting on Lovenox bridge Valvular heart disease HTN Hypothyroidism Presbycusis Plan: Monitor closely INR check Lovenox bridge IRF protocol 09/20/20: Monitor urinary frequency Monitor O2 INR monitoring Lovenox bridge 09/21/20: Stop Lovenox Monitor BP Stent removal 09/22/20: Stent removal today Monitor closely Labs reviewed 09/23/20: Stent removed Monitor for hematuria Monitor pain (1) Debility (2) Hypertensive emergency Status: Resolved Resolution Date/Time: 09/12/20 @ 09:59 (3) Hydroureteronephrosis Status: Acute (4) Acute heart failure with preserved ejection fraction (HFpEF) Status: Acute (5) On Coumadin for atrial fibrillation Status: Chronic (6) Acute kidney injury superimposed on chronic kidney disease Status: Acute (7) Obstruction of right ureter Status: Acute (8) Acute respiratory failure with hypoxia Status: Acute (9) Paroxysmal A-fib Status: Chronic (10) Hypothyroidism Status: Chronic (11) Frequent falls Status: Acute (12) UTI (urinary tract infection) Status: Acute (13) Uropathy, obstructive Status: Acute (14) Valvular heart disease Status: Chronic DAYA VILLEGAS DO Sep 23, 2020 11:17
--- NOTE | 2020-09-23 12:13 | Physical Therapy Daily Note ---
PT Daily Note-Current Subjective Pt laying Supine in bed upon arrival. Pt agrees to PT. Pain Location: No Pain Reported Mental Status Patient Orientation: Person, Place, Time, Situation Transfers SCALE: Activities may be completed with or without assistive devices. 1-Kgwzkerpnw-kdcizol completes the activity by him/herself with no assistance from a helper. 5-Set-up or Clean-up Assistance-helper sets up or cleans up; patient completes activity. [place] assists only prior to or following the activity. 4-Supervision or Touching Assistance-helper provides verbal cues and/or touching/steadying and/or contact guard assistance as patient completes activity. Assistance may be provided throughout the activity or intermittently. 3-Partial/Moderate Assistance-helper does LESS THAN HALF the effort. [place] lifts, holds or supports trunk or limbs, but provides less than half the effort. 2-Substantial/Maximal Assistance-helper does MORE THAN HALF the effort. [place] lifts or holds trunk or limbs and provides more than half the effort. 0-Jzskzubmb-mrqimd does ALL the effort. Patient does none of the effort to complete the activity. Or, the assistance of 2 or more helpers is required for the patient to complete the activity. If activity was not attempted, code reason: 7-Patient Refused. 9-Not Applicable-not attempted and the patient did not perform the activity be fore the current illness, exacerbation or injury. 10-Not Attempted due to Environmental Limitations-(lack of equipment, weather restraints, etc.). 88-Not Attempted due to Medical Conditions or Safety Concerns. Lying to Sitting/Side of Bed(Q: 5 Sit to Stand (QC): 5 Toilet Transfer (QC): 5 Gait Training Does the Patient Walk?: Yes Distance: 150' x2 Walk 10 feet (QC): 5 Walk 50 ft with 2 Turns(QC): 5 Walk 150 ft (QC): 5 Gait Persons Needed: 1 Gait Assistive Device: FWW Exercises NuStep Minutes: 10 NuStep Workload: 4 Treatments TF to standing and amb. to BR. Pt amb. in hallway and uses NuStep for 10m at WL 4. Pt practices amb. using railing in hallway before RB. Pt amb to get laundry then amb back to room to rest and eat lunch. All needs met, call light in hand. Assessment Current Status: Good Progress ELEMENTARY EDUCATION TUTOR adjusts height on FWW, encourages pt to stand tall & walk w/in FWW. Pt kevin. tx well. PT Short Term Goals Short Term Goals Time Frame: Sep 26, 2020 Roll Left & Right: 6 Sit to lyin Lying to sitting on side of be: 4 Sit to stand: 5 Chair/wye-te-frjrp transfer: 5 Walk 10 feet: 5 Walk 50 feet with two turns: 5 Walk 150 feet: 5 PT Asbestos Worker Goals Custodial Goals PT Asbestos Worker Goals Time Frame: Oct 10, 2020 Roll Left & Right (QC): 6 Sit to Lying (QC): 6 Lying-Sitting on Side/Bed(QC): 6 Sit to Stand (QC): 6 Chair/Pik-vk-Ufakf Xfer(QC): 6 Toilet Transfer (QC): 6 Car Transfer (QC): 6 Does the Patient Walk: Yes Walk 10 feet (QC): 6 Walk 50ft with 2 Turns (QC): 6 Walk 150 ft (QC): 6 Walking 10ft on Uneven Surface: 6 1 Step (curb) (QC): 4 4 Steps (QC): 4 12 Steps (QC): 88 Picking up an Object (QC): 5 Wheel 50 feet with 2 turns (QC: 9 Wheel 150 feet: 9 PT Plan Treatment/Plan Treatment Plan: Continue Plan of Care Treatment Plan: Bed Mobility, Education, Functional Activity Gilda, Functional Strength, Group Therapy, Gait, Safety, Therapeutic Exercise, Transfers Treatment Duration: Oct 10, 2020 Frequency: At least 5 of 7 days/Wk (IRF) Estimated Hrs Per Day: 1.5 hours per day Patient and/or Family Agrees t: Yes Safety Risks/Education Patient Education: Gait Training, Correct Positioning, Safety Issues Teaching Recipient: Patient Teaching Methods: Discussion Response to Teaching: Verbalize Understanding Time/GCodes Time In: 1100 Time Out: 1200 Total Billed Treatment Time: 60 Total Billed Treatment 1, GT x2 (30m), FA (15m) & EX (15m) NAUN JOHNSTON PTA Sep 23, 2020 12:13
--- NOTE | 2020-09-23 13:13 | Occupational Ther Daily Note ---
OT Current Status-Daily Note Subjective Pt AxO. In chair in bathroom, completing ADL tasks. Pt states she is feeling okay today, slight pain in back though denies OT notifying nurses. Pt agrees to tx. Pt increases in fatigue during end of hour session, requires increased rest breaks. With increased fatigue, pt requires increased time for problem solving/ thought processing. However, when resting, pt able to function at normal level for pt. Mental Status/Objective Patient Orientation: Person, Place, Situation ADL-Treatment Therapy Code Descriptions/Definitions Functional [place] Measure: 0=Not Assessed/NA 4=Minimal Assistance 1=Total Assistance 5=Supervision or Setup 2=Maximal Assistance 6=Modified [place] 3=Moderate Assistance 7=Complete IndependenceSCALE: Activities may be completed with or without assistive devices. 4-Cihacsmsml-khgrskz completes the activity by him/herself with no assistance from a helper. 5-Set-up or Clean-up Assistance-helper sets up or cleans up; patient completes activity. [place] assists only prior to or following the activity. 4-Supervision or Touching Assistance-helper provides verbal cues and/or touching/steadying and/or contact guard assistance as patient completes a ctivity. Assistance may be provided throughout the activity or intermittently. 3-Partial/Moderate Assistance-helper does LESS THAN HALF the effort. [place] lifts, holds or supports trunk or limbs, but provides less than half the effort. 2-Substantial/Maximal Assistance-helper does MORE THAN HALF the effort. [place] lifts or holds trunk or limbs and provides more than half the effort. 7-Fvyoqinuw-laypya does ALL the effort. Patient does none of the effort to complete the activity. Or, the assistance of 2 or more helpers is required for the patient to complete the activity. If activity was not attempted, code reason: 7-Patient Refused. 9-Not Applicable-not attempted and the patient did not perform the activity before the current illness, exacerbation or injury. 10-Not Attempted due to Environmental Limitations-(lack of equipment, weather restraints, etc.). 88-Not Attempted due to Medical Conditions or Safety Concerns. Eating (QC): 6 Oral Hygiene (QC): 6 Shower/Bathe Self (QC): 6 (completed sponge bath prior to OT entry in room with IND. ) Upper Body Dressing (QC): 6 (gathered and donned prior to OT entry.) Lower Body Dressing (QC): 6 (gathered and donned prior to OT entry.) On/Off Footwear: 6 (donned BONNIE hose IND, dons shoes with IND.) Toileting Hygiene (QC): 6 (IND on toilet.) Toilet Transfer (QC): 4 (SUP with use of walker.) Other Treatment Pt finishes ADL tasks in bathroom, min A to sit to stand as pt states she is fatigued this am. Pt completes ambulation to chair to complete BONNIE hose/ shoe donning. Pt agrees to washing laundry/ gym time. Pt ambulates with cues for directionality. Pt completes IADL/ laundry task with SBA. Pt ambulates to gym, does 8 min of mod resistance arm bike, then states she is "done with this." Pt stands at windowsill, completing sitting/ standing cognitive/ UE reaching task with good ability, though fair endurance/ requires rest breaks intermittently (c/o LE strength, good UE strength). Pt sits EOM, completes sitting balance task with wiggle cushion under bottom for increased dynamic core use. Pt reaches/ completes UE strengthening task with 2# weighted bar, CGA due to decreased balance. Pt states she is tired and would like to return to room. Ambulates with CGA, min standing rest breaks. Pt sits in recliner, educated on energy conservation tasks (given handout) and importance of rest breaks through day. Pt left with nursing staff end of session, all needs met. Education OT Patient Education: Correct positioning, Energy conservation, Exercise program, Home exercise program, Progress toward Goal/Update tx plan, Purpose of tx/functional activities, Safety issues Teaching Recipient: Patient Teaching Methods: Demonstration, Discussion Response to Teaching: Verbalize Understanding, Return Demonstration OT Short Term Goals Short Term Goals Toileting hygiene: 4 Shower/bathe self: 4 Upper body dressin Lower body dressin Putting on/taking off footwear: 3 OT Skilled Nursing Goals Batch Roller Operator Goals Time Frame: Oct 03, 2020 Eating (QC): 6 Oral Hygiene (QC): 6 Toileting Hygiene (QC): 6 Shower/Bathe Self (QC): 6 Upper Body Dressing (QC): 6 Lower Body Dressing (QC): 6 On/Off Footwear (QC): 6 Additional Goals: 1-Demonstrate ADL Tasks, 2-Verbalize Understanding, 3- ImproveStrength/Gilda 1=Demonstrate adherence to instructed precautions during ADL tasks. 2=Patient will verbalize/demonstrate understanding of assistive devices/modifications for ADL. 3=Patient will improve strength/tolerance for activity to enable patient to perform ADL's. OT Education/Plan Problem List/Assessment Assessment: Decreased Activ Tolerance, Decreased UE Strength, Edema (LEs), Impaired Funct Balance, Impaired I ADL's, Impaired Self-Care Skills Discharge Recommendations Plan/Recommendations: Continue POC Therapy Discharge Recommendati: Home & Family Treatment Plan/Plan of Care Treatment,Training & Education: Yes Patient would benefit from OT for education, treatment and training to promote independence in ADL's, mobility, safety and/or upper extremity function for ADL's. Plan of Care: ADL Retraining, Caregiver Training, Concurrent Therapy, Functional Mobility, Group Exercise/Act as Ind, UE Funct Exercise/Act Treatment Duration: Oct 03, 2020 Frequency: At least 5 of 7 days/Wk (IRF) Estimated Hrs Per Day: 1.5 hours per day Agreement: Yes Rehab Potential: Fair Time/GCodes Start Time: 08:00 Stop Time: 09:30 Total Time Billed (hr/min): 90 Billed Treatment Time 1, ADL, EX 3, FA 2 (90) JAMES WHITEHEAD OTR Sep 23, 2020 13:13
--- NOTE | 2020-09-23 13:52 | Physical Therapy Daily Note ---
PT Daily Note-Current Subjective Patient agrees to PT. No c/o. Mental Status Patient Orientation: Normal For Age Transfers SCALE: Activities may be completed with or without assistive devices. 7-Ndbhjkupvt-unegsjz completes the activity by him/herself with no assistance from a helper. 5-Set-up or Clean-up Assistance-helper sets up or cleans up; patient completes activity. [place] assists only prior to or following the activity. 4-Supervision or Touching Assistance-helper provides verbal cues and/or touching/steadying and/or contact guard assistance as patient completes activity. Assistance may be provided throughout the activity or intermittently. 3-Partial/Moderate Assistance-helper does LESS THAN HALF the effort. [place] lifts, holds or supports trunk or limbs, but provides less than half the effort. 2-Substantial/Maximal Assistance-helper does MORE THAN HALF the effort. [place] lifts or holds trunk or limbs and provides more than half the effort. 1-Qarfgzudm-jdtkvr does ALL the effort. Patient does none of the effort to c omplete the activity. Or, the assistance of 2 or more helpers is required for the patient to complete the activity. If activity was not attempted, code reason: 7-Patient Refused. 9-Not Applicable-not attempted and the patient did not perform the activity before the current illness, exacerbation or injury. 10-Not Attempted due to Environmental Limitations-(lack of equipment, weather restraints, etc.). 88-Not Attempted due to Medical Conditions or Safety Concerns. Sit to Stand (QC): 4 Gait Training Does the Patient Walk?: Yes Distance: 200'x 2 Walk 10 feet (QC): 4 Walk 50 ft with 2 Turns(QC): 4 Walk 150 ft (QC): 4 Gait Assistive Device: FWW safe and functional with no deviation Exercises NuStep Minutes: 12 NuStep Workload: 4 Assessment At the end of the session, patient c/o of "no feeling like herself". RN notified. Patient reports fatigue as well. Patient returned to room and is sitting up in recliner. PT Short Term Goals Short Term Goals Time Frame: Sep 26, 2020 Roll Left & Right: 6 Sit to lyin Lying to sitting on side of be: 4 Sit to stand: 5 Chair/gdn-xd-yavya transfer: 5 Walk 10 feet: 5 Walk 50 feet with two turns: 5 Walk 150 feet: 5 PT Mcc Goals Mcc Goals PT Mcc Goals Time Frame: Oct 10, 2020 Roll Left & Right (QC): 6 Sit to Lying (QC): 6 Lying-Sitting on Side/Bed(QC): 6 Sit to Stand (QC): 6 Chair/Zmv-gx-Kjrxn Xfer(QC): 6 Toilet Transfer (QC): 6 Car Transfer (QC): 6 Does the Patient Walk: Yes Walk 10 feet (QC): 6 Walk 50ft with 2 Turns (QC): 6 Walk 150 ft (QC): 6 Walking 10ft on Uneven Surface: 6 1 Step (curb) (QC): 4 4 Steps (QC): 4 12 Steps (QC): 88 Picking up an Object (QC): 5 Wheel 50 feet with 2 turns (QC: 9 Wheel 150 feet: 9 PT Plan Treatment/Plan Treatment Plan: Continue Plan of Care Treatment Plan: Bed Mobility, Education, Functional Activity Gilda, Functional Strength, Group Therapy, Gait, Safety, Therapeutic Exercise, Transfers Treatment Duration: Oct 10, 2020 Frequency: At least 5 of 7 days/Wk (IRF) Estimated Hrs Per Day: 1.5 hours per day Patient and/or Family Agrees t: Yes Time/GCodes Time In: 1300 Time Out: 1330 Total Billed Treatment Time: 30 Total Billed Treatment 1 visit EX 12 min GT 18 min TOVA MONTERO PT Sep 23, 2020 13:52
--- NOTE | 2020-09-23 14:48 | Progress Note - Cardiology ---
Cardiology SOAP Progress Note Subjective: No cp or palp or syncope or shortness of breath at rest Gen weakness improving Swelling improved Objective: I&O/Vital Signs 09/23/20 09/23/20 09/23/20 09/23/20 03:15 06:15 09:58 14:32 Temp 37.0 Pulse 77 Resp 20 B/P (MAP) 133/62 (85) Pulse Ox 91 92 94 94 O2 Delivery Room Air Room Air Room Air Room Air 09/23/20 00:00 Intake Total 860 ml Balance 860 ml Weight (Pounds): 171 Weight (Ounces): 9.0 Weight (Calculated Kilograms): 77.182929 Constitutional: AAO x 3, well-developed, well-nourished Respiratory: No accessory muscle use; other (fair to good, bilat air entry) Cardiovascular: regular rate-rhythm, S1 and S2, systolic murmur (3/6 MSM at card base) Gastrointestional: No tender; soft; No guarding, No rebound; audible bowel sounds Extremities: swelling (0-1+ edema of both legs); No clubbing, No cyanosis Neurologic/Psychiatric: oriented x 3, other (she moves all her limbs equally) Skin: No rash on exposed areas, No ulcerations on exposed areas Results/Procedures: Labs Laboratory Tests 09/23/20 06:10: Blood Urea Nitrogen 11, Creatinine 1.04, Estimat Glomerular Filtration Rate 51, BUN/Creatinine Ratio 11 Laboratory Tests 09/22/20 06:12 09/23/20 06:10 A/P: Assessment: Recent ac resp failure, ac renal failure and obstructive uropathy, now resolved and pt undergoing Rehab. Coronary artery disease with history of stent to LAD. 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, 2017 in [place] with uneventful deployment of a 26 mm Medtronic Evolut Pro - Last echo 09/10/20: LVEF 80-85, aortic valve prosthesis with peak grad 28 and mean grad 11 and valve area 1/9 sq cm, mod to sev MR, mod TR, PASP 85-90 mmHg Paroxysmal atrial fibrillation and SSS - chronic amiodarone therapy for rhythm control - chronic warfarin therapy for stroke prophylaxis - s/p perm pacemaker for management of bradycardia, managed by Dr Dixon Hypertension Mild bilateral carotid stenosis, last u/s Jul 2018, managed by Dr Dixon Hyperlipidemia, treated with statin H/o hypothyroidism, treated with levo-thyroxine Bilateral leg swelling, likely related to venous insuff and calcium channel umang therapy Mild liver enzyme elevation of undetermined etiology on labs of 09/22/20 - statins held Plan: * D/c enoxaparin (INR therapeutic) * Continue warfarin * Monitor labs JACINDA ST MD FACP FACC CCDS Sep 23, 2020 14:48
[2020-09-23] MEDS: warFARin 4 MG (COUMADIN) TAB PO SCH (18:08)
[2020-09-23 18:21] VITALS: BP 135/65
[2020-09-23 21:00] VITALS: BP 165/64
[2020-09-24] MEDS: RT-ALBUTEROL INHALER HFA (VENTOLIN HFA) 18 GM IH SCH ×4 (02:50→21:45)
[2020-09-24] MEDS: IPRATROPIUM INHALER (ATROVENT) 12.9 GM INH SCH ×4 (02:50→21:45)
[2020-09-24 06:02] LABS: ALBUMIN 3.2 GM/DL (3.2-4.5)
[2020-09-24] MEDS: KCL 10 MEQ TAB (MICRO K) PO SCH (06:02)
[2020-09-24] MEDS: hydrALAZINE (APRESOLINE) 25 MG TAB PO SCH ×3 (06:02→21:38)
[2020-09-24 06:04] LABS: INR 2.5 (0.8-1.4); PROTHROMBIN TIME PATIENT 27.7 SEC (12.2-14.7)
[2020-09-24 06:05] LABS: TOTAL PROTEIN 6.1 GM/DL (6.4-8.2)
[2020-09-24 06:07] LABS: BILIRUBIN,TOTAL 0.3 MG/DL (0.1-1.0)
[2020-09-24 06:11] LABS: BILIRUBIN,DIRECT 0.1 MG/DL (0.0-0.3); BILIRUBIN,INDIRECT 0.2 MG/DL
[2020-09-24 06:23] VITALS: BP 141/64
--- NOTE | 2020-09-24 07:29 | Pulmonary Progress Note ---
Subjective Time Seen by a Provider: 07:28 Subjective/Events-last exam PT wants to go home. Sepsis Event Evaluation Height, Weight, BMI Height: 5'9.00" Weight: 171lbs. 9.0oz. 77.039000oi; 29.71 BMI Method:Stated Exam Exam Vital Signs Date Time Temp Pulse Resp B/P (MAP) Pulse Ox O2 Delivery O2 Flow Rate FiO2 09/24/20 06:23 37.1 94 17 141/64 (89) 93 Room Air 09/24/20 02:50 Room Air 09/24/20 02:50 98 Room Air 09/23/20 21:55 Room Air 09/23/20 21:25 98 Room Air 09/23/20 21:00 65 165/64 (97) 09/23/20 20:45 Room Air 09/23/20 18:38 95 Room Air 09/23/20 18:21 36.8 70 18 135/65 (88) 94 Room Air 09/23/20 14:32 94 Room Air 09/23/20 09:58 94 Room Air 09/23/20 09:00 Room Air I & O 09/24/20 07:00 Intake Total 1910 ml Output Total 700 ml Balance 1210 ml Height & Weight Height: 5'9.00" Weight: 171lbs. 9.0oz. 77.626621rs; 29.71 BMI Method:Stated General Appearance: No Apparent Distress, WD/WN, Chronically ill HEENT: PERRL/EOMI, Normal ENT Inspection, Pharynx Normal, Other ([place] severe) Neck: Full Range of Motion, Normal Inspection, Non Tender, Supple, Carotid Bruit Respiratory: Chest Non Tender, Lungs Clear, Normal Breath Sounds, No Accessory Muscle Use, No Respiratory Distress Cardiovascular: No Gallop, No JVD, Normal Peripheral Pulses, Systolic Murmur, Irregularly Irregular Extremity: Normal Capillary Refill, Normal Inspection, Normal Range of Motion, Non Tender, No Calf Tenderness, Pedal Edema Neurologic/Psychiatric: Alert, Oriented x3, No Motor/Sensory Deficits, Normal Mood/Affect, Abnormal Gait, Motor Weakness (generalized weakness lower extremities) Skin: Normal Color, Warm/Dry Lymphatic: No Adenopathy Results Lab Laboratory Tests 09/23/20 06:10 Assessment/Plan Assessment/Plan Acute respiratory failure --much improved -Currently on RA -COVID is negative pulmonary edema with small bilateral pleural effusions and mild hypoxia Pneumonia L>R - resolving -s/p Merrem -MRSA swab is negative -Influenza is negative HTN Right ureteral Obstruction s/p surgery -Urology is following Acute on chronic renal failure AFib HX -Coumadin therapy Hypothyroidism Continue levothyroxine ZHANG HERCULES DO Sep 24, 2020 07:29
[2020-09-24] MEDS: FUROSEMIDE 20 MG (LASIX) TAB PO SCH (08:08)
[2020-09-24] MEDS: SENNA W/DOCUSATE (SENOKOT S) TABLET PO SCH ×2 (08:08→21:35)
[2020-09-24] MEDS: MICONAZOLE 2% POWDER (DESENEX AF) 90 GM TOP SCH ×2 (08:08→21:39)
[2020-09-24] MEDS: ASPIRIN 81 MG CHEW (CHILDREN'S ASA) PO SCH (08:08)
[2020-09-24] MEDS: HYOSCYAMINE 0.375 MG (LEVBID) TAB PO SCH ×2 (08:08→21:38)
[2020-09-24] MEDS: polyethylene glycoL POWDER 17 GM (MIRALAX) PACK PO SCH ×2 (08:08→21:35)
[2020-09-24] MEDS: CARVEDILOL 12.5 MG (COREG) TABLET PO SCH ×2 (08:08→21:38)
[2020-09-24] MEDS: LEVOTHYROXINE 75 MCG (LEVOTHROID) TABLET PO SCH (08:08)
[2020-09-24] MEDS: DOCUSATE SODIUM 100 MG (COLACE) CAP PO SCH ×2 (08:09→21:35)
[2020-09-24] MEDS: NYSTATIN CREAM (MYCOSTATIN) 30 GM TUBE TP SCH ×3 (08:09→21:39)
[2020-09-24] MEDS: SENNOSIDES 8.6 MG (SENOKOT) TAB PO SCH ×2 (08:09→21:00)
--- NOTE | 2020-09-24 09:14 | Progress Note - Urology ---
Progress Note-Urology Progress Notes/Assess & Plan Progress/Assessment & Plan CONTINUES WELL. NO PAINS. CHECK BMP TOMORROW AND MAYBE A RENAL ULTRASOUND Final Diagnosis RT URETERAL OBSTRUCTION JL BRYSON MD Sep 24, 2020 09:14
--- NOTE | 2020-09-24 09:39 | Occupational Ther Daily Note ---
OT Current Status-Daily Note Subjective Pt AxO. Pt denies pain, states energy is 'okay', reviewed energy conservation again last night and states had a few questions- questions answered. Pt states she is ready to d/c home. Pt is challenged to take charge of rest breaks when needed through this session. Pt agrees. Mental Status/Objective Patient Orientation: Person, Place, Situation ADL-Treatment Therapy Code Descriptions/Definitions Functional [place] Measure: 0=Not Assessed/NA 4=Minimal Assistance 1=Total Assistance 5=Supervision or Setup 2=Maximal Assistance 6=Modified [place] 3=Moderate Assistance 7=Complete IndependenceSCALE: Activities may be completed with or without assistive devices. 4-Znyhraalon-xoofvhe completes the activity by him/herself with no assistance from a helper. 5-Set-up or Clean-up Assistance-helper sets up or cleans up; patient completes activity. [place] assists only prior to or following the activity. 4-Supervision or Touching Assistance-helper provides verbal cues and/or touching/steadying and/or contact guard assistance as patient completes ac tivity. Assistance may be provided throughout the activity or intermittently. 3-Partial/Moderate Assistance-helper does LESS THAN HALF the effort. [place] lifts, holds or supports trunk or limbs, but provides less than half the effort. 2-Substantial/Maximal Assistance-helper does MORE THAN HALF the effort. [place] lifts or holds trunk or limbs and provides more than half the effort. 6-Vtbpbsmhm-ibihyr does ALL the effort. Patient does none of the effort to complete the activity. Or, the assistance of 2 or more helpers is required for the patient to complete the activity. If activity was not attempted, code reason: 7-Patient Refused. 9-Not Applicable-not attempted and the patient did not perform the activity before the current illness, exacerbation or injury. 10-Not Attempted due to Environmental Limitations-(lack of equipment, weather restraints, etc.). 88-Not Attempted due to Medical Conditions or Safety Concerns. Eating (QC): 6 Oral Hygiene (QC): 6 Shower/Bathe Self (QC): 6 (completed sponge bath prior to OT entry with IND.) Upper Body Dressing (QC): 6 (completed prior to OT entry with IND.) Lower Body Dressing (QC): 6 (completed prior to OT entry with IND.) On/Off Footwear: 6 (completed prior to OT entry with IND.) Toileting Hygiene (QC): 6 (completed on toilet with IND (states minimal difficulty reaching bottom, however, states she has been reaching from the front and states IND).) Toilet Transfer (QC): 4 (SUP) Other Treatment Pt completes ADL tasks prior to OT entry. Pt completes bedding change with SBA, able to regulate rest breaks/ conserve energy through sitting tasks rather than reaching. No LOB throughout. Pt states desire to d/c home. Pt states s/o could come today if needed. Need for bathroom/ BM, completes all tasks as outlined safely. OT places barrier cream on medial thighs due to redness. Pt completes ambulation task through mondragon SBA with no LOB. Completes standing dynamic balance task in stance at // bars on uneven surface (blue mat). Pt completes reaction/ reaching/ balance task with balloon batting while on mat. CGA throughout. With increased dynamic instability task, pt still able to right self during slight LOB. Pt completes reaching across midline/ picking small items off floor with CGA and cues for hand placement on walker/ bars. Pt requires minimal cues for break at this time, though initiates most without cues. To increase functional reach/ stretch/ comfort of RUE, pt completes 10 minutes of arm pulleys, increa sing range through comfortable AAROM. Pt returns to room, states energy level "okay!", sits in chair, all needs met, call light in reach. Educated on Tuesday meeting, pt states ready to d/c and no concerns from pt upon d/c. Education OT Patient Education: Correct positioning, Energy conservation, Exercise program, Home exercise program, Progress toward Goal/Update tx plan, Purpose of tx/functional activities, Rehab process, Safety issues, Transfer techniques Teaching Recipient: Patient Teaching Methods: Demonstration, Discussion Response to Teaching: Verbalize Understanding, Return Demonstration OT Short Term Goals Short Term Goals Toileting hygiene: 4 Shower/bathe self: 4 Upper body dressin Lower body dressin Putting on/taking off footwear: 3 OT Wedding Photographer Goals Chcf Goals Time Frame: Oct 03, 2020 Eating (QC): 6 Oral Hygiene (QC): 6 Toileting Hygiene (QC): 6 Shower/Bathe Self (QC): 6 Upper Body Dressing (QC): 6 Lower Body Dressing (QC): 6 On/Off Footwear (QC): 6 Additional Goals: 1-Demonstrate ADL Tasks, 2-Verbalize Understanding, 3-ImproveStrength/Gilda 1=Demonstrate adherence to instructed precautions during ADL tasks. 2=Patient will verbalize/demonstrate understanding of assistive devices/modifications for ADL. 3=Patient will improve strength/tolerance for activity to enable patient to perform ADL's. OT Education/Plan Problem List/Assessment Assessment: Decreased Activ Tolerance, Decreased UE Strength, Impaired I ADL's, Impaired Self-Care Skills Discharge Recommendations Plan/Recommendations: Continue POC Therapy Discharge Recommendati: Home & Family Treatment Plan/Plan of Care Treatment,Training & Education: Yes Patient would benefit from OT for education, treatment and training to promote independence in ADL's, mobility, safety and/or upper extremity function for ADL's. Plan of Care: ADL Retraining, Caregiver Training, Concurrent Therapy, Functional Mobility, Group Exercise/Act as Ind, UE Funct Exercise/Act Treatment Duration: Oct 03, 2020 Frequency: At least 5 of 7 days/Wk (IRF) Estimated Hrs Per Day: 1.5 hours per day Agreement: Yes Rehab Potential: Fair Time/GCodes Start Time: 08:00 Stop Time: 09:30 Total Time Billed (hr/min): 90 Billed Treatment Time 1, ADL (15), FA (15), EX 4 (60)= 90 JAMES WHITEHEAD OTR Sep 24, 2020 09:39
--- NOTE | 2020-09-24 11:06 | PM&R Progress Note ---
Subjective HPI/CC On Admission Date Seen by Provider: Sep 24, 2020 Time Seen by Provider: 11:15 Subjective/Events-last exam 09/24/20: Patient doing well No pain reported No issues Wants to go home soon 09/23/20: Patient doing well Stent removed yesterday Hematuria improved No pain reported Participation in therapy is good 09/22/20: Patient doing very well Stent will be removed today by Dr Zayas No pain Labs reviewed 09/21/20: Patient doing well Levsin for bladder spasms order by Dr Zayas Stent removal will be this week INR 2.[address] Horan restarted Lasix and a few other meds and DC Norvasc ASA daily 09/20/20: Patient settling in well No pain reported Cardiology consulted for edema Lasix and K+ taken at home will likely restart INR monitoring Lovenox bridge O2 maintained Urinary frequency noted Review of Systems General: Fatigue, Malaise Pulmonary: Dyspnea Objective Exam Vital Signs Vital Signs Date Time Temp Pulse Resp B/P (MAP) Pulse Ox O2 Delivery O2 Flow Rate FiO2 09/24/20 18:07 37.0 92 20 119/75 (90) 94 Room Air Capillary Refill : General Appearance: No Apparent Distress, WD/WN, Chronically ill HEENT: PERRL/EOMI, Normal ENT Inspection, Pharynx Normal, Other ([place] severe) Neck: Full Range of Motion, Normal Inspection, Non Tender, Supple, Carotid Bruit Respiratory: Chest Non Tender, Lungs Clear, Normal Breath Sounds, No Accessory Muscle Use, No Respiratory Distress Cardiovascular: No Gallop, No JVD, Normal Peripheral Pulses, Systolic Murmur, Irregularly Irregular Gastrointestinal: Normal Bowel Sounds, No Organomegaly, No Pulsatile Mass, Non Tender, Soft Back: Normal Inspection, No CVA Tenderness, No Vertebral Tenderness Extremity: Normal Capillary Refill, Normal Inspection, Normal Range of Motion, Non Tender, No Calf Tenderness, Pedal Edema Neurologic/Psychiatric: Alert, Oriented x3, No Motor/Sensory Deficits, Normal Mood/Affect, Abnormal Gait, Motor Weakness (generalized weakness lower extremities) Skin: Normal Color, Warm/Dry Lymphatic: No Adenopathy Results/Procedures Lab Patient resulted labs reviewed. FIM Transfers Therapy Code Descriptions/Definitions Functional [place] Measure: 0=Not Assessed/NA 4=Minimal Assistance 1=Total Assistance 5=Supervision or Setup 2=Maximal Assistance 6=Modified [place] 3=Moderate Assistance 7=Complete IndependenceSCALE: Activities may be completed with or without assistive devices. 4-Hxacqltgtr-yvogrzj completes the activity by him/herself with no assistance from a helper. 5-Set-up or Clean-up Assistance-helper sets up or cleans up; patient completes activity. [place] assists only prior to or following the activity. 4-Supervision or Touching Assistance-helper provides verbal cues and/or touching/steadying and/or contact guard assistance as patient completes activity. Assistance may be provided throughout the activity or intermittently. 3-Partial/Moderate Assistance-helper does LESS THAN HALF the effort. [place] lifts, holds or supports trunk or limbs, but provides less than half the effort. 2-Substantial/Maximal Assistance-helper does MORE THAN HALF the effort. [place] l ifts or holds trunk or limbs and provides more than half the effort. 0-Xmpsgmzgf-igpnyi does ALL the effort. Patient does none of the effort to complete the activity. Or, the assistance of 2 or more helpers is required for the patient to complete the activity. If activity was not attempted, code reason: 7-Patient Refused. 9-Not Applicable-not attempted and the patient did not perform the activity before the current illness, exacerbation or injury. 10-Not Attempted due to Environmental Limitations-(lack of equipment, weather restraints, etc.). 88-Not Attempted due to Medical Conditions or Safety Concerns. Roll Left to Right (QC): 6 Sit to Lying (QC): 3 Sit to Stand (QC): 4 Chair/Spf-bj-Sruka Xfer(QC): 4 Car Transfer (QC): 4 Gait Training Does the Patient Walk?: Yes Distance: 200'x 2 Walk 10 feet (QC): 4 Walk 50 ft with 2 Turns(QC): 4 Walk 150 ft (QC): 4 Walking 10ft/uneven surface-QC: 4 Gait Persons Needed: 1 Gait Assistive Device: FWW Wheelchair Training Does the Pt Use a Wheelchair?: No Wheel 50 ft with 2 turns (QC): 9 Wheel 150 ft (QC): 9 Stair Training #of Steps: 1 1 Step (curb) (QC): 3 4 Steps (QC): 88 12 Steps (QC): 88 Balance Picking up an Object (QC): 4 ADL-Treatment Eating (QC): 6 Oral Hygiene (QC): 6 Shower/Bathe Self (QC): 6 (completed sponge bath prior to OT entry with IND.) Upper Body Dressing (QC): 6 (completed prior to OT entry with IND.) Lower Body Dressing (QC): 6 (completed prior to OT entry with IND.) On/Off Footwear (QC): 6 (completed prior to OT entry with IND.) Toileting Hygiene (QC): 6 (completed on toilet with IND (states minimal difficulty reaching bottom, however, states she has been reaching from the front and states IND).) Toilet Transfer (QC): 4 (SUP) Assessment/Plan Assessment and Plan Assess & Plan/Chief Complaint Assessment: Critical illness myopathy SIVA now resolved Right ureter stent for obstruction of uncertain etiology AF on Coumadin restarting on Lovenox bridge Valvular heart disease HTN Hypothyroidism Presbycusis Plan: Monitor closely INR check Lovenox bridge IRF protocol 09/20/20: Monitor urinary frequency Monitor O2 INR monitoring Lovenox bridge 09/21/20: Stop Lovenox Monitor BP Stent removal 09/22/20: Stent removal today Monitor closely Labs reviewed 09/23/20: Stent removed Monitor for hematuria Monitor pain 09/24/20: DC planned for later this week Monitor pain Edema managed (1) Debility (2) Hypertensive emergency Status: Resolved Resolution Date/Time: 09/12/20 @ 09:59 (3) Hydroureteronephrosis Status: Acute (4) Acute heart failure with preserved ejection fraction (HFpEF) Status: Acute (5) On Coumadin for atrial fibrillation Status: Chronic (6) Acute kidney injury superimposed on chronic kidney disease Status: Acute (7) Obstruction of right ureter Status: Acute (8) Acute respiratory failure with hypoxia Status: Acute (9) Paroxysmal A-fib Status: Chronic (10) Hypothyroidism Status: Chronic (11) Frequent falls Status: Acute (12) UTI (urinary tract infection) Status: Acute (13) Uropathy, obstructive Status: Acute (14) Valvular heart disease Status: Chronic DAYA VILLEGAS DO Sep 24, 2020 11:06
--- NOTE | 2020-09-24 12:08 | Progress Note - Cardiology ---
Cardiology SOAP Progress Note Subjective: Up to recliner at the bedside States she feels good No c/o CP or SOB No c/o palpitations Objective: I&O/Vital Signs 09/24/20 09/24/20 09/24/20 09/24/20 06:23 08:09 09:10 15:12 Temp 37.1 Pulse 94 Resp 17 B/P (MAP) 141/64 (89) Pulse Ox 93 94 92 O2 Delivery Room Air Room Air Room Air Room Air 09/24/20 00:00 Intake Total 1560 ml Output Total 700 ml Balance 860 ml Weight (Pounds): 171 Weight (Ounces): 9.0 Weight (Calculated Kilograms): 77.503823 Constitutional: AAO x 3, well-developed, well-nourished Respiratory: No accessory muscle use; other (fair to good, bilat air entry) Cardiovascular: regular rate-rhythm, S1 and S2, systolic murmur (3/6 MSM at card base) Gastrointestional: No tender; soft; No guarding, No rebound; audible bowel sounds Extremities: swelling (0-1+ edema of both legs); No clubbing, No cyanosis Neurologic/Psychiatric: oriented x 3, other (she moves all her limbs equally) Skin: No rash on exposed areas, No ulcerations on exposed areas Results/Procedures: Labs Laboratory Tests 09/24/20 05:42: Prothrombin Time 27.7H, INR Comment 2.5H, Total Bilirubin 0.3, Direct Bilirubin 0.1, Indirect Bilirubin 0.2, Aspartate Amino Transf (AST/SGOT) 42H, Alanine Aminotransferase (ALT/SGPT) 52, Alkaline Phosphatase 100, Total Protein 6.1L, Albumin 3.2 A/P: Assessment: Recent ac resp failure, ac renal failure and obstructive uropathy, now resolved and pt undergoing Rehab. Coronary artery disease with history of stent to LAD. 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, 2017 in [place] with uneventful deployment of a 26 mm Med[employer]onic Evolut Pro - Last echo 09/10/20: LVEF 80-85, aortic valve prosthesis with peak grad 28 and mean grad 11 and valve area 1/9 sq cm, mod to sev MR, mod TR, PASP 85-90 mmHg Paroxysmal atrial fibrillation and SSS - chronic amiodarone therapy for rhythm control - chronic warfarin therapy for stroke prophylaxis - s/p perm pacemaker for management of bradycardia, managed by Dr Dixon Hypertension Mild bilateral carotid stenosis, last u/s Jul 2018, managed by Dr Dixon Hyperlipidemia, treated with statin H/o hypothyroidism, treated with levo-thyroxine Bilateral leg swelling, likely related to venous insuff and calcium channel umang therapy Mild liver enzyme elevation of undetermined etiology on labs of 09/22/20 - statins held Plan: * Continue warfarin * Monitor labs AYAZ GANNON Sep 24, 2020 12:08
--- NOTE | 2020-09-24 12:29 | Physical Therapy Daily Note ---
PT Daily Note-Current Subjective Pt sitting in recliner upon arrival. Pt agrees to PT and asking for DC. Pain Location: No Pain Reported Mental Status Patient Orientation: Person, Place, Time, Situation Transfers SCALE: Activities may be completed with or without assistive devices. 5-Aajjxmmxdv-wmyrrcm completes the activity by him/herself with no assistance f rom a helper. 5-Set-up or Clean-up Assistance-helper sets up or cleans up; patient completes activity. [place] assists only prior to or following the activity. 4-Supervision or Touching Assistance-helper provides verbal cues and/or touching/steadying and/or contact guard assistance as patient completes activity. Assistance may be provided throughout the activity or intermittently. 3-Partial/Moderate Assistance-helper does LESS THAN HALF the effort. [place] lifts, holds or supports trunk or limbs, but provides less than half the effort. 2-Substantial/Maximal Assistance-helper does MORE THAN HALF the effort. [place] lifts or holds trunk or limbs and provides more than half the effort. 9-Pahgqjgrh-[place] does ALL the effort. Patient does none of the effort to complete the activity. Or, the assistance of 2 or more helpers is required for the patient to complete the activity. If activity was not attempted, code reason: 7-Patient Refused. 9-Not Applicable-not attempted and the patient did not perform the activity before the current illness, exacerbation or injury. 10-Not Attempted due to Environmental Limitations-(lack of equipment, weather restraints, etc.). 88-Not Attempted due to Medical Conditions or Safety Concerns. Roll Left & Right (QC): 6 Sit to Lying (QC): 6 Lying to Sitting/Side of Bed(Q: 6 Sit to Stand (QC): 6 Chair/Ski-ze-Wvlhz Xfer(QC): 6 Toilet Transfer (QC): 6 Car Transfer (QC): 6 Weight Bearing Full Weight Bearing Full Weight Bearing Gait Training Does the Patient Walk?: Yes Distance: 150' x2 Walk 10 feet (QC): 6 Walk 50 ft with 2 Turns(QC): 6 Walk 150 ft (QC): 6 Walking 10ft/uneven surface-QC: 6 Gait Persons Needed: 1 Gait Assistive Device: FWW Wheelchair Training Does the Pt Use a Wheelchair?: No Stair Training Stair Training: Handrails/: 2 handrails #of Steps: 12 1 Step (curb) (QC): 6 4 Steps (QC): 5 12 Steps (QC): 5 Stairs: Pattern: Step to Balance Picking up an Object (QC): 6 Exercises NuStep Minutes: 10 NuStep Workload: 4 Treatments Pt completes QC scoring items listed above as well as uses NuStep for 10m at WL 4. Pt returns to room at end of tx to rest and eat lunch. All needs met, call light in hand. Assessment Current Status: Good Progress Pt needs occasional VC for safety especially when fatigued but has improved and asking to DC. PT Short Term Goals Short Term Goals Time Frame: Sep 26, 2020 Roll Left & Right: 6 Sit to lyin Lying to sitting on side of be: 4 Sit to stand: 5 Chair/nqw-pg-gefpi transfer: 5 Walk 10 feet: 5 Walk 50 feet with two turns: 5 Walk 150 feet: 5 PT Web Design Instructor Goals Chcf Goals PT Chcf Goals Time Frame: Oct 10, 2020 Roll Left & Right (QC): 6 Sit to Lying (QC): 6 Lying-Sitting on Side/Bed(QC): 6 Sit to Stand (QC): 6 Chair/Ekw-xy-Uuqom Xfer(QC): 6 Toilet Transfer (QC): 6 Car Transfer (QC): 6 Does the Patient Walk: Yes Walk 10 feet (QC): 6 Walk 50ft with 2 Turns (QC): 6 Walk 150 ft (QC): 6 Walking 10ft on Uneven Surface: 6 1 Step (curb) (QC): 4 4 Steps (QC): 4 12 Steps (QC): 88 Picking up an Object (QC): 5 Wheel 50 feet with 2 turns (QC: 9 Wheel 150 feet: 9 PT Plan Problem List Problem List: Activity Tolerance Treatment/Plan Treatment Plan: Continue Plan of Care Treatment Plan: Bed Mobility, Education, Functional Activity Gilda, Functional Strength, Group Therapy, Gait, Safety, Therapeutic Exercise, Transfers Treatment Duration: Oct 10, 2020 Frequency: At least 5 of 7 days/Wk (IRF) Estimated Hrs Per Day: 1.5 hours per day Patient and/or Family Agrees t: Yes Safety Risks/Education Patient Education: Transfer Techniques, Correct Positioning, Safety Issues Teaching Recipient: Patient Teaching Methods: Discussion Response to Teaching: Verbalize Understanding Time/GCodes Time In: 1100 Time Out: 1200 Total Billed Treatment Time: 60 Total Billed Treatment 1, GT (20m), FA x2 (25m) & EX (15m) NAUN JOHNSTON RESORT HOST Sep 24, 2020 12:29
--- NOTE | 2020-09-24 14:39 | Occupational Ther Daily Note ---
OT Current Status-Daily Note Subjective Pt AxO. Pt agrees to tx. States no pain. Mental Status/Objective Patient Orientation: Person, Place, Situation ADL-Treatment Therapy Code Descriptions/Definitions Functional [place] Measure: 0=Not Assessed/NA 4=Minimal Assistance 1=Total Assistance 5=Supervision or Setup 2=Maximal Assistance 6=Modified [place] 3=Moderate Assistance 7=Complete IndependenceSCALE: Activities may be completed with or without assistive devices. 1-Avstrrwreq-aprtrex completes the activity by him/herself with no assistance from a helper. 5-Set-up or Clean-up Assistance-helper sets up or cleans up; patient completes activity. [place] assists only prior to or following the activity. 4-Supervision or Touching Assistance-helper provides verbal cues and/or touching/steadying and/or contact guard assistance as patient completes activity. Assistance may be provided throughout the activity or intermittently. 3-Partial/Moderate Assistance-helper does LESS THAN HALF the effort. [place] lifts, holds or supports trunk or limbs, but provides less than half the effort. 2-Substantial/Maximal Assistance-helper does MORE THAN HALF the effort. [place] lifts or holds trunk or limbs and provides more than half the effort. 5-Twntavjqg-ddwbae does ALL the effort. Patient does none of the effort to complete the activity. Or, the assistance of 2 or more helpers is required for the patient to complete the activity. If activity was not attempted, code reason: 7-Patient Refused. 9-Not Applicable-not attempted and the patient did not perform the activity before the current illness, exacerbation or injury. 10-Not Attempted due to Environmental Limitations-(lack of equipment, weather restraints, etc.). 88-Not Attempted due to Medical Conditions or Safety Concerns. Eating (QC): 6 Toileting Hygiene (QC): 6 Toilet Transfer (QC): 6 Other Treatment Pt states just got back from bathroom, stated completed toileting with IND. Pt agrees to tx. Pt ambulates to gym, completes stairs per request 1x (CGA throughout). Pt completes bilateral UE exercise with elbow extension/ shoulder flexion back to elbow flexion/ shoulder extension. Pt completes 10 min of this task to increase fx activity endurance of UE. Pt ambulates to [facility] area, completing coffee prep task with SBA. Pt sits to write multiple words, difficulty with increased complex spelling, though able to physically write with IND/ no issues. Pt returns to room, sits in recliner, all needs met, pt left with DO in room. States fatigue. Education OT Patient Education: Correct positioning, Exercise program, Home exercise program, Progress toward Goal/Update tx plan, Safety issues Teaching Recipient: Patient Teaching Methods: Demonstration, Discussion Response to Teaching: Verbalize Understanding, Return Demonstration OT Short Term Goals Short Term Goals Toileting hygiene: 4 Shower/bathe self: 4 Upper body dressin Lower body dressin Putting on/taking off footwear: 3 OT Software Writer Goals Software Writer Goals Time Frame: Oct 03, 2020 Eating (QC): 6 Oral Hygiene (QC): 6 Toileting Hygiene (QC): 6 Shower/Bathe Self (QC): 6 Upper Body Dressing (QC): 6 Lower Body Dressing (QC): 6 On/Off Footwear (QC): 6 Additional Goals: 1-Demonstrate ADL Tasks, 2-Verbalize Understanding, 3- ImproveStrength/Gilda 1=Demonstrate adherence to instructed precautions during ADL tasks. 2=Patient will verbalize/demonstrate understanding of assistive devices/modifications for ADL. 3=Patient will improve strength/tolerance for activity to enable patient to perform ADL's. OT Education/Plan Problem List/Assessment Assessment: Decreased Activ Tolerance, Decreased UE Strength, Impaired I ADL's, Impaired Self-Care Skills Discharge Recommendations Plan/Recommendations: Continue POC Therapy Discharge Recommendati: Home & Family Treatment Plan/Plan of Care Treatment,Training & Education: Yes Patient would benefit from OT for education, treatment and training to promote independence in ADL's, mobility, safety and/or upper extremity function for ADL's. Plan of Care: ADL Retraining, Caregiver Training, Concurrent Therapy, Funct ional Mobility, Group Exercise/Act as Ind, UE Funct Exercise/Act Treatment Duration: Oct 03, 2020 Frequency: At least 5 of 7 days/Wk (IRF) Estimated Hrs Per Day: 1.5 hours per day Agreement: Yes Rehab Potential: Fair Time/GCodes Start Time: 14:15 Stop Time: 14:45 Total Time Billed (hr/min): 30 Billed Treatment Time [place], NICOLAS TOMAS (30) JAMES WHITEHEAD OTR Sep 24, 2020 14:39
--- NOTE | 2020-09-24 15:08 | Progress Note - Cardiology ---
Cardiology SOAP Progress Note Subjective: No cp or palp or syncope No shortness of breath at rest Swelling has improved No n/v/d Gen weakness and malaise present Objective: I&O/Vital Signs 09/24/20 09/24/20 09/24/20 06:23 08:09 09:10 Temp 37.1 Pulse 94 Resp 17 B/P (MAP) 141/64 (89) Pulse Ox 93 94 O2 Delivery Room Air Room Air Room Air 09/24/20 00:00 Intake Total 1560 ml Output Total 700 ml Balance 860 ml Weight (Pounds): 171 Weight (Ounces): 9.0 Weight (Calculated Kilograms): 77.201311 Constitutional: AAO x 3, well-developed, well-nourished Respiratory: No accessory muscle use; other (fair to good, bilat air entry) Cardiovascular: regular rate-rhythm, S1 and S2, systolic murmur (3/6 MSM at card base) Gastrointestional: No tender; soft; No guarding, No rebound; audible bowel sounds Extremities: swelling (0-1+ edema of both legs); No clubbing, No cyanosis Neurologic/Psychiatric: oriented x 3, other (she moves all her limbs equally) Skin: No rash on exposed areas, No ulcerations on exposed areas Results/Procedures: Labs Laboratory Tests 09/24/20 05:42: Prothrombin Time 27.7H, INR Comment 2.5H, Total Bilirubin 0.3, Direct Bilirubin 0.1, Indirect Bilirubin 0.2, Aspartate Amino Transf (AST/SGOT) 42H, Alanine Aminotransferase (ALT/SGPT) 52, Alkaline Phosphatase 100, Total Protein 6.1L, Albumin 3.2 Laboratory Tests 09/23/20 06:10 A/P: Assessment: Recent ac resp failure, ac renal failure and obstructive uropathy, now resolved and pt undergoing Rehab. Coronary artery disease with history of stent to LAD. 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, 2017 in [place] with uneventful deployment of a 26 mm Medtronic Evolut Pro - Last echo 09/10/20: LVEF 80-85, aortic valve prosthesis with peak grad 28 and mean grad 11 and valve area 1/9 sq cm, mod to sev MR, mod TR, PASP 85-90 mmHg Paroxysmal atrial fibrillation and SSS - chronic amiodarone therapy for rhythm control - chronic warfarin therapy for stroke prophylaxis - s/p perm pacemaker for management of bradycardia, managed by Dr Dixon Hypertension Mild bilateral carotid stenosis, last u/s Jul 2018, managed by Dr Dixon Hyperlipidemia, treated with statin H/o hypothyroidism, treated with levo-thyroxine Bilateral leg swelling, likely related to venous insuff and calcium channel umang therapy Mild liver enzyme elevation of undetermined etiology on labs of 09/22/20 - statins held Plan: * Continue warfarin. INR therapeutic on 09/24/20 * Monitor labs JACINDA ST MD FACP FACC CCDS Sep 24, 2020 15:08
[2020-09-24] MEDS: warFARin 4 MG (COUMADIN) TAB PO SCH (17:48)
[2020-09-24 18:07] VITALS: BP 119/75
[2020-09-25] MEDS: IPRATROPIUM INHALER (ATROVENT) 12.9 GM INH SCH ×2 (02:19→09:24)
[2020-09-25] MEDS: RT-ALBUTEROL INHALER HFA (VENTOLIN HFA) 18 GM IH SCH ×2 (02:19→09:24)
[2020-09-25 06:00] VITALS: BP 126/60
[2020-09-25] MEDS: KCL 10 MEQ TAB (MICRO K) PO SCH (06:29)
[2020-09-25] MEDS: hydrALAZINE (APRESOLINE) 25 MG TAB PO SCH (06:29)
[2020-09-25] MEDS ORDERED: ALBU18HF2 IH (06:30)
[2020-09-25] MEDS ORDERED: POTA10TA6 PO (06:30)
[2020-09-25] MEDS ORDERED: ASPI81TA64 PO (06:30)
[2020-09-25] MEDS ORDERED: NYST15CR TP (06:30)
[2020-09-25] MEDS ORDERED: MICO90PO TOP (06:30)
[2020-09-25] MEDS ORDERED: CARV12.53 PO (06:30)
--- NOTE | 2020-09-25 06:32 | Discharge Summary ---
Diagnosis/Chief Complaint Date of Admission Sep 19, 2020 at 09:30 Date of Discharge Discharge Date: Sep 25, 2020 Discharge Diagnosis Assess & Plan/Chief Complaint Assessment: Critical illness myopathy SIVA now resolved Right ureter stent for obstruction of uncertain etiology AF on Coumadin restarting on Lovenox bridge Valvular heart disease HTN Hypothyroidism Presbycusis Plan: Monitor closely INR check Lovenox bridge IRF protocol 09/20/20: Monitor urinary frequency Monitor O2 INR monitoring Lovenox bridge 09/21/20: Stop Lovenox Monitor BP Stent removal 09/22/20: Stent removal today Monitor closely Labs reviewed 09/23/20: Stent removed Monitor for hematuria Monitor pain 09/24/20: DC planned for later this week Monitor pain Edema managed (1) Debility (2) Hypertensive emergency Status: Resolved Resolution Date/Time: 09/12/20 @ 09:59 (3) Hydroureteronephrosis Status: Acute (4) Acute heart failure with preserved ejection fraction (HFpEF) Status: Acute (5) On Coumadin for atrial fibrillation Status: Chronic (6) Acute kidney injury superimposed on chronic kidney disease Status: Acute (7) Obstruction of right ureter Status: Acute (8) Acute respiratory failure with hypoxia Status: Acute (9) Paroxysmal A-fib Status: Chronic (10) Hypothyroidism Status: Chronic (11) Frequent falls Status: Acute (12) UTI (urinary tract infection) Status: Acute (13) Uropathy, obstructive Status: Acute (14) Valvular heart disease Status: Chronic Discharge Summary Discharge Physical Examination Allergies: Coded Allergies: Penicillins (Verified Allergy, Unknown, 11/07/18) pineapple (Verified Allergy, Unknown, 11/09/18) Vitals & I&Os Vital Signs Date Time Temp Pulse Resp B/P (MAP) Pulse Ox O2 Delivery O2 Flow Rate FiO2 09/25/20 11:12 36.6 76 18 133/59 92 Room Air General Appearance: Alert, Oriented X3, Cooperative Respiratory: Clear to Auscultation Cardiovascular: Regular Rate Neuro: Normal Gait Psych/Mental Status: Mental Status NL Hospital Course Was the Problem List Reviewed?: Yes Uneventful hospital course after recovering from critical illness and subsequent severe myopathy. She was able to participate in all therapies and be able to regain strength rapidly. INR remained therapeutic so Lovenox was DC. Cardiology consulted and meds adjusted. Dr Zayas removed stent and patient tolerated that well. Patient was deemed stable for DC. Labs (last 24 hrs) Laboratory Tests 09/20/20 04:47: White Blood Count 9.2, Red Blood Count 3.13L, Hemoglobin 9.4L, Hematocrit 30L, Mean Corpuscular Volume 96, Mean Corpuscular Hemoglobin 30, Mean Corpuscular Hemoglobin Concent 31L, Red Cell Distribution Width 13.7, Platelet Count 255, Mean Platelet Volume 11.2, Immature Granulocyte % (Auto) 1, Neutrophils (%) (Auto) 67, Lymphocytes (%) (Auto) 18, Monocytes (%) (Auto) 11, Eosinophils (%) (Auto) 3, Basophils (%) (Auto) 0, Neutrophils # (Auto) 6.2, Lymphocytes # (Auto) 1.6, Monocytes # (Auto) 1.0, Eosinophils # (Auto) 0.3, Basophils # (Auto) 0.0, Immature Granulocyte # (Auto) 0.1, Sodium Level 142, Potassium Level 3.7, Chloride Level 103, Carbon Dioxide Level 28, Anion Gap 11, Blood Urea Nitrogen 10, Creatinine 0.88, Estimat Glomerular Filtration Rate > 60, BUN/Creatinine Ratio 11, Glucose Level 91, Calcium Level 8.2L, Corrected Calcium 9.0, Total Bilirubin 0.4, Aspartate Amino Transf (AST/SGOT) 27, Alanine Aminotransferase (ALT/SGPT) 15, Alkaline Phosphatase 78, Total Protein 5.5L, Albumin 3.0L 09/21/20 04:43: Prothrombin Time 24.4H, INR Comment 2.2H 09/22/20 06:12: White Blood Count 9.3, Red Blood Count 3.38L, Hemoglobin 10.2L, Hematocrit 32L, Mean Corpuscular Volume 96, Mean Corpuscular Hemoglobin 30, Mean Corpuscular Hemoglobin Concent 32, Red Cell Distribution Width 13.6, Platelet Count 302, Mean Platelet Volume 10.8, Immature Granulocyte % (Auto) 0, Neutrophils (%) (Auto) 70, Lymphocytes (%) (Auto) 15, Monocytes (%) (Auto) 11, Eosinophils (%) (Auto) 4, Basophils (%) (Auto) 1, Neutrophils # (Auto) 6.5, Lymphocytes # (Auto) 1.4, Monocytes # (Auto) 1.0, Eosinophils # (Auto) 0.4H, Basophils # (Auto) 0.1, Immature Granulocyte # (Auto) 0.0, Sodium Level 142, Potassium Level 3.7, Chloride Level 105, Carbon Dioxide Level 27, Anion Gap 10, Blood Urea Nitrogen 9, Creatinine 0.92, Estimat Glomerular Filtration Rate 59, BUN/Creatinine Ratio 10, Glucose Level 96, Calcium Level 8.9, Corrected Calcium 9.3, Total Bilirubin 0.4, Aspartate Amino Transf (AST/SGOT) 67H, Alanine Aminotransferase (ALT/SGPT) 58H, Alkaline Phosphatase 111, Total Protein 6.7, Albumin 3.5, Prothrombin Time 23.7H, INR Comment 2.1H 09/23/20 06:10: Blood Urea Nitrogen 11, Creatinine 1.04, Estimat Glomerular Filtration Rate 51, BUN/Creatinine Ratio 11 09/24/20 05:42: Prothrombin Time 27.7H, INR Comment 2.5H, Total Bilirubin 0.3, Direct Bilirubin 0.1, Indirect Bilirubin 0.2, Aspartate Amino Transf (AST/SGOT) 42H, Alanine Aminotransferase (ALT/SGPT) 52, Alkaline Phosphatase 100, Total Protein 6.1L, A lbumin 3.2 09/25/20 05:25: Prothrombin Time 32.6H, INR Comment 3.1H, Sodium Level 141, Potassium Level 3.6, Chloride Level 106, Carbon Dioxide Level 25, Anion Gap 10, Blood Urea Nitrogen 13, Creatinine 1.07, Estimat Glomerular Filtration Rate 49, BUN/Creatinine Ratio 12, Glucose Level 100, Calcium Level 8.1L Pending Labs Laboratory Tests 09/20/20 04:47: White Blood Count 9.2, Red Blood Count 3.13, Hemoglobin 9.4, Hematocrit 30, Mean Corpuscular Volume 96, Mean Corpuscular Hemoglobin 30, Mean Corpuscular Hemoglobin Concent 31, Red Cell Distribution Width 13.7, Platelet Count 255, Mean Platelet Volume 11.2, Immature Granulocyte % (Auto) 1, Neutrophils (%) (Auto) 67, Lymphocytes (%) (Auto) 18, Monocytes (%) (Auto) 11, Eosinophils (%) (Auto) 3, Basophils (%) (Auto) 0, Neutrophils # (Auto) 6.2, Lymphocytes # (Auto) 1.6, Monocytes # (Auto) 1.0, Eosinophils # (Auto) 0.3, Basophils # (Auto) 0.0, Immature Granulocyte # (Auto) 0.1, Sodium Level 142, Potassium Level 3.7, Chloride Level 103, Carbon Dioxide Level 28, Anion Gap 11, Blood Urea Nitrogen 10, Creatinine 0.88, Estimat Glomerular Filtration Rate > 60, BUN/Creatinine Ratio 11, Glucose Level 91, Calcium Level 8.2, Corrected Calcium 9.0, Total Bilirubin 0.4, Aspartate Amino Transf (AST/SGOT) 27, Alanine Aminotransferase (ALT/SGPT) 15, Alkaline Phosphatase 78, Total Protein 5.5, Albumin 3.0 09/21/20 04:43: Prothrombin Time 24.4, INR Comment 2.2 09/22/20 06:12: White Blood Count 9.3, Red Blood Count 3.38, Hemoglobin 10.2, Hematocrit 32, Mean Corpuscular Volume 96, Mean Corpuscular Hemoglobin 30, Mean Corpuscular Hemoglobin Concent 32, Red Cell Distribution Width 13.6, Platelet Count 302, Mean Platelet Volume 10.8, Immature Granulocyte % (Auto) 0, Neutrophils (%) (Auto) 70, Lymphocytes (%) (Auto) 15, Monocytes (%) (Auto) 11, Eosinophils (%) (Auto) 4, Basophils (%) (Auto) 1, Neutrophils # (Auto) 6.5, Lymphocytes # (Auto) 1.4, Monocytes # (Auto) 1.0, Eosinophils # (Auto) 0.4, Basophils # (Auto) 0.1, Immature Granulocyte # (Auto) 0.0, Sodium Level 142, Potassium Level 3.7, Chloride Level 105, Carbon Dioxide Level 27, Anion Gap 10, Blood Urea Nitrogen 9, Creatinine 0.92, Estimat Glomerular Filtration Rate 59, BUN/Creatinine Ratio 10, Glucose Level 96, Calcium Level 8.9, Corrected Calcium 9.3, Total Bilirubin 0.4, Aspartate Amino Transf (AST/SGOT) 67, Alanine Aminotransferase (ALT/SGPT) 58, Alkaline Phosphatase 111, Total Protein 6.7, Albumin 3.5, Prothrombin Time 23.7, INR Comment 2.1 09/23/20 06:10: Blood Urea Nitrogen 11, Creatinine 1.04, Estimat Glomerular Filtration Rate 51, BUN/Creatinine Ratio 11 09/24/20 05:42: Prothrombin Time 27.7, INR Comment 2.5, Total Bilirubin 0.3, Direct Bilirubin 0.1, Indirect Bilirubin 0.2, Aspartate Amino Transf (AST/SGOT) 42, Alanine Aminotransferase (ALT/SGPT) 52, Alkaline Phosphatase 100, Total Protein 6.1, Albumin 3.2 09/25/20 05:25: Prothrombin Time 32.6, INR Comment 3.1, Sodium Level 141, Potassium Level 3.6, Chloride Level 106, Carbon Dioxide Level 25, Anion Gap 10, Blood Urea Nitrogen 13, Creatinine 1.07, Estimat Glomerular Filtration Rate 49, BUN/Creatinine Ratio 12, Glucose Level 100, Calcium Level 8.1 Discharge Home Medications: Active Scripts Active Nystatin 15 Gm Cream..g. 0 Gm TP TID Lotrimin AF (Miconazole Nitrate) 90 Gm Powder 0 Gm TOP BID Klor-Con 10 (Potassium Chloride) 10 Meq Tablet.er 10 Meq PO DAILY@0700 Children's Aspirin (Aspirin) 81 Mg Tab.chew 81 Mg PO DAILY Carvedilol 12.5 Mg Tablet 25 Mg PO BID Ventolin Hfa (Albuterol Sulfate) 18 Gm Hfa.aer.ad 0 Gm IH [id number] Reported Atorvastatin Calcium 20 Mg Tablet 20 Mg PO DAILY Dilt-Xr (Diltiazem HCl) 240 Mg Cap.er.deg 240 Mg PO DAILY Gabapentin 100 Mg Capsule 200 Mg PO DAILY TAKES 2 (100MG) CAPSULES Warfarin Sodium 4 Mg Tablet 6 Mg PO TUE,TUE TAKES 1 & 1/2 (4MG) TABLET Warfarin Sodium 4 Mg Tablet 4 Mg PO HERNANDEZ,MO,WE,TH,SA Furosemide 20 Mg Tablet 20 Mg PO DAILY Levothyroxine Sodium 75 Mcg Tablet 75 Mcg PO DAILY Instructions to patient/family Please see electronic discharge instructions given to patient. Diagnosis/Problems Diagnosis/Problems (1) Debility (2) Hypertensive emergency Status: Resolved Resolution Date/Time: 09/12/20 @ 09:59 (3) Hydroureteronephrosis Status: Acute (4) Acute heart failure with preserved ejection fraction (HFpEF) Status: Acute (5) On Coumadin for atrial fibrillation Status: Chronic (6) Acute kidney injury superimposed on chronic kidney disease Status: Acute (7) Obstruction of right ureter Status: Acute (8) Acute respiratory failure with hypoxia Status: Acute (9) Paroxysmal A-fib Status: Chronic (10) Hypothyroidism Status: Chronic (11) Frequent falls Status: Acute (12) UTI (urinary tract infection) Status: Acute (13) Uropathy, obstructive Status: Acute (14) Valvular heart disease Status: Chronic DAYA VILLEGAS DO Sep 25, 2020 06:32
--- NOTE | 2020-09-25 06:32 | D/C HH Face to Face Order ---
D/C Face to Face Orders Reconcile Patient Problems Problems Reviewed?: Yes Instructions for Patient Home Health Patient Instructions/FollowUp: Dr Prather 1 week Physician to follow Patient: Yamilka Discharge Diet for Home: No Restrictions Patient Problems: Crtical illness myopathy Goals for Patient: [place] Patient Data-Allergies,Ht & Wt Patient Allergies: Coded Allergies: Penicillins (Verified Allergy, Unknown, 11/07/18) pineapple (Verified Allergy, Unknown, 11/09/18) Height (Feet): 5 Height (Inches): 9.00 Weight (Pounds): 171 Weight (Ounces): 9.0 Home Health Need/Face to Face Date of Face to Face: Sep 25, 2020 Clinical Findings: Generalized weakness and fatigue, Instability, Muscle weakness, Unsteady gait I have seen Pt [id number]: Yes Discharged To: Home Diagnosis/Conditions: Crtical illness myopathy Patient is Homebound due to: Muscle weakness Homebound Status Due to the above stated illness, injury or surgical procedure (medical condition or diagnosis) and associated clinical findings, the patient is donna ebound because of his/her inability to leave home except with aid of a supportive device and/or person AND leaving the home requires a considerable and taxing effort or is medically contraindicated. Pt req the following assistanc: Walker Home Health Nursing Orders Home Health Services Order: Nursing Services, Sanforizing Machine Operator-Evaluate & Treat, Physical Therapy-Evaluate & Treat Certify Stmt I certify that this patient is under my care and that I, a nurse practitioner or a physician; a office manager executive assistant working with me, had a face to face encounter that - meets the physician face to face encounter requirements with this patient as dated. DAYA VILLEGAS DO Sep 25, 2020 06:32
[2020-09-25 06:34] LABS: POTASSIUM 3.6 MMOL/L (3.6-5.0)
[2020-09-25 06:35] LABS: CALCIUM 8.1 MG/DL (8.5-10.1); INR 3.1 (0.8-1.4); PROTHROMBIN TIME PATIENT 32.6 SEC (12.2-14.7)
[2020-09-25 06:40] LABS: CREATININE SERUM 1.07 MG/DL (0.60-1.30)
--- NOTE | 2020-09-25 07:06 | Pulmonary Progress Note ---
Subjective Time Seen by a Provider: 07:05 Subjective/Events-last exam No complications noted. Sepsis Event Evaluation Height, Weight, BMI Height: 5'9.00" Weight: 171lbs. 9.0oz. 77.664960de; 29.71 BMI Method:Stated Exam Exam Vital Signs Date Time Temp Pulse Resp B/P (MAP) Pulse Ox O2 Delivery O2 Flow Rate FiO2 09/25/20 06:00 36.6 76 18 126/60 (82) 93 Room Air 09/25/20 02:19 95 Room Air 09/24/20 21:46 92 Room Air 09/24/20 20:30 95 Room Air 09/24/20 18:07 37.0 92 20 119/75 (90) 94 Room Air 09/24/20 15:12 92 Room Air 09/24/20 09:10 Room Air 09/24/20 08:09 94 Room Air I & O 09/25/20 06:59 Intake Total 1450 ml Balance 1450 ml Height & Weight Height: 5'9.00" Weight: 171lbs. 9.0oz. 77.147813iv; 29.71 BMI Method:Stated General Appearance: No Apparent Distress, WD/WN, Chronically ill HEENT: PERRL/EOMI, Normal ENT Inspection, Pharynx Normal, Other (hoopa severe) Neck: Full Range of Motion, Normal Inspection, Non Tender, Supple, Carotid Bruit Respiratory: Chest Non Tender, Lungs Clear, Normal Breath Sounds, No Accessory Muscle Use, No Respiratory Distress Cardiovascular: No Gallop, No JVD, Normal Peripheral Pulses, Systolic Murmur, Irregularly Irregular Extremity: Normal Capillary Refill, Normal Inspection, Normal Range of Motion, Non Tender, No Calf Tenderness, Pedal Edema Neurologic/Psychiatric: Alert, Oriented x3, No Motor/Sensory Deficits, Normal Mood/Affect, Abnormal Gait, Motor Weakness (generalized weakness lower extremities) Skin: Normal Color, Warm/Dry Lymphatic: No Adenopathy Results Lab Laboratory Tests 09/25/20 05:25 Assessment/Plan Assessment/Plan Acute respiratory failure --much improved -Currently on RA -COVID is negative pulmonary edema with small bilateral pleural effusions and mild hypoxia Pneumonia L>R - resolving -s/p Merrem -MRSA swab is negative -Influenza is negative HTN Right ureteral Obstruction s/p surgery -Urology is following Acute on chronic renal failure AFib HX -Coumadin therapy Hypothyroidism Continue levothyroxine ZHANG HERCULES DO Sep 25, 2020 07:06
[2020-09-25 08:14] VITALS: BP 133/59
[2020-09-25] MEDS: SENNA W/DOCUSATE (SENOKOT S) TABLET PO SCH (08:15)
[2020-09-25] MEDS: HYOSCYAMINE 0.375 MG (LEVBID) TAB PO SCH (08:15)
[2020-09-25] MEDS: DOCUSATE SODIUM 100 MG (COLACE) CAP PO SCH (08:15)
[2020-09-25] MEDS: CARVEDILOL 12.5 MG (COREG) TABLET PO SCH (08:15)
[2020-09-25] MEDS: LEVOTHYROXINE 75 MCG (LEVOTHROID) TABLET PO SCH (08:15)
[2020-09-25] MEDS: ASPIRIN 81 MG CHEW (CHILDREN'S ASA) PO SCH (08:15)
[2020-09-25] MEDS: SENNOSIDES 8.6 MG (SENOKOT) TAB PO SCH (08:15)
[2020-09-25] MEDS: FUROSEMIDE 20 MG (LASIX) TAB PO SCH (08:15)
[2020-09-25] MEDS: polyethylene glycoL POWDER 17 GM (MIRALAX) PACK PO SCH (08:15)
[2020-09-25] MEDS: NYSTATIN CREAM (MYCOSTATIN) 30 GM TUBE TP SCH (08:16)
[2020-09-25] MEDS: MICONAZOLE 2% POWDER (DESENEX AF) 90 GM TOP SCH (08:16)
--- NOTE | 2020-09-25 09:31 | Therapy Team Discharge Summary ---
Therapy Discharge Summary Discharge Recommendations Date of Discharge Physical Therapy Patient came to rehab with debility post-ventilation. Upon evaluation patient performed bed mobility with independence, supine to sit with mod assist, sit to supine with min assist, sit <-> stand CGA, transfers CGA, car transfer min assist, ambulated 150' with a rolling walker with CGA (including 50' with at least 2 turns of 90 degrees and 10' over an uneven surface), went up and down 1 step using a rolling walker with min assist, and picked up an object from the floor with CGA. Patient has been performing bed mobility and transfer training, balance and endurance training, functional strengthening, stair training, gait training, and education. Patient has made good progress and has met all of her fci goals. Now, patient performs bed mobility and transfers with independence, car transfer independent, ambulates 150' with a rolling walker with independence (including 50' with at least 2 turns of 90 degrees and 10' over an uneven surface), can go up and down 12 steps using 2 handrails with setup, and can shrimp picker an object from the floor with independence. Patient is discharging from this facility today and will be discharged from PT at this time. Occupational Therapy Decreased Activ Tolerance, Decreased UE Strength, Impaired I ADL's, Impaired Self-Care Skills PT Chcf Goals Chcf Goals PT Chcf Goals Time Frame: Oct 10, 2020 Roll Left to Right (QC): 6 Sit to Lying (QC): 6 Lying-Sitting on Side/Bed(QC): 6 Sit to Stand (QC): 6 Chair/Rmc-gg-Kzlia Xfer(QC): 6 Car Transfer (QC): 6 Does the Patient Walk: Yes Walk 10 feet (QC): 6 Walk 10ft-Uneven Surface(QC): 6 Walk 50ft with 2 Turns (QC): 6 Walk 150 ft (QC): 6 Wheel 50 feet with 2 turns (QC: 9 1 Step (curb) (QC): 4 4 Steps (QC): 4 12 Steps (QC): 88 Picking up an Object (QC): 5 OT Chcf Goals Chcf Goals Time Frame: Oct 03, 2020 Eating (QC): 6 Oral Hygiene (QC): 6 Shower/Bathe Self (QC): 6 Upper Body Dressing (QC): 6 Lower Body Dressing (QC): 6 On/Off Footwear (QC): 6 Toileting Hygiene (QC): 6 Toilet/Commode Transfer (QC): 6 Additional Goals: 1-Demonstrate ADL Tasks, 2-Verbalize Understanding, 3-Imp roveStrength/Gilda 1=Demonstrate adherence to instructed precautions during ADL tasks. 2=Patient will verbalize/demonstrate understanding of assistive devices/modifications for ADL. 3=Patient will improve strength/tolerance for activity to enable patient to perform ADL's. SABRINA SHERMAN PT Sep 25, 2020 09:31
--- NOTE | 2020-09-25 10:55 | Progress Note - Urology ---
Progress Note-Urology Progress Notes/Assess & Plan Progress/Assessment & Plan FEELING WELL. ASYMPTOMATIC. CREAT STABLE. HOME. OFFICE 10/09 Final Diagnosis RT URETERAL OBSTRUCTION JL BRYSON MD Sep 25, 2020 10:55
[2020-09-25 11:12] VITALS: BP 133/59
--- NOTE | 2020-09-26 11:54 | Therapy Team Discharge Summary ---
Therapy Discharge Summary Discharge Recommendations Date of Discharge Sep 25, 2020 at 11:19 Occupational Therapy Pt admits with debility. Pt originally QC scores as follows: oral care IND, UB dressing s/u, showering/ LB dressing/ toilet hygiene min-mod A, and footwear max A. Pt and OT staff work towards higher fx IND through ADLs, safety training, energy conservation, fx activity endurance, etc. Pt d/c's with all ADLs at IND level (excluding toilet transfer with SUP), limited by endurance. Pt d/c's home with s/o with no AE recommendations. D/c OT at this time. Decreased Activ Tolerance, Decreased UE Strength, Impaired I ADL's, Impaired Self-Care Skills PT Edger Machine Helper Goals Edger Machine Helper Goals PT Edger Machine Helper Goals Time Frame: Oct 10, 2020 Roll Left to Right (QC): 6 Sit to Lying (QC): 6 Lying-Sitting on Side/Bed(QC): 6 Sit to Stand (QC): 6 Chair/Buj-bd-Zesdx Xfer(QC): 6 Car Transfer (QC): 6 Does the Patient Walk: Yes Walk 10 feet (QC): 6 Walk 10ft-Uneven Surface(QC): 6 Walk 50ft with 2 Turns (QC): 6 Walk 150 ft (QC): 6 Wheel 50 feet with 2 turns (QC: 9 1 Step (curb) (QC): 4 4 Steps (QC): 4 12 Steps (QC): 88 Picking up an Object (QC): 5 OT Snf Goals Edger Machine Helper Goals Time Frame: Oct 03, 2020 Eating (QC): 6 Oral Hygiene (QC): 6 Shower/Bathe Self (QC): 6 Upper Body Dressing (QC): 6 Lower Body Dressing (QC): 6 On/Off Footwear (QC): 6 Toileting Hygiene (QC): 6 Toilet/Commode Transfer (QC): 6 Additional Goals: 1-Demonstrate ADL Tasks, 2-Verbalize Understanding, 3- ImproveStrength/Gilda 1=Demonstrate adherence to instructed precautions during ADL tasks. 2=Patient will verbalize/demonstrate understanding of assistive devices/modifications for ADL. 3=Patient will improve strength/tolerance for activity to enable patient to perform ADL's. JAMES WHITEHEAD OTR Sep 26, 2020 11:54
== END 2020-09-25 11:19 | disposition home health service (06) | DRG 92 ==
PROVIDERS: ADMIT Internal Medicine; ATTEND Internal Medicine
DX: G72.81 Critical illness myopathy (principal); N13.1 Hydronephrosis with ureteral stricture, not elsewhere classified; I48.0 Paroxysmal atrial fibrillation; E03.9 Hypothyroidism, unspecified; H91.13 Presbycusis, bilateral; I49.5 Sick sinus syndrome; E78.00 Pure hypercholesterolemia, unspecified; E78.5 Hyperlipidemia, unspecified; I12.9 Hypertensive chronic kidney disease with stage 1 through stage 4 chronic kidney disease, or unspecified chronic kidney disease; N18.9 Chronic kidney disease, unspecified; I25.10 Atherosclerotic heart disease of native coronary artery without angina pectoris; R35.0 Frequency of micturition; I65.23 Occlusion and stenosis of bilateral carotid arteries; I87.2 Venous insufficiency (chronic) (peripheral); N32.89 Other specified disorders of bladder; R74.8 Abnormal levels of other serum enzymes; Z95.5 Presence of coronary angioplasty implant and graft; Z95.0 Presence of cardiac pacemaker; Z97.4 Presence of external hearing-aid; Z95.820 Peripheral vascular angioplasty status with implants and grafts; Z79.01 Long term (current) use of anticoagulants; Z95.2 Presence of prosthetic heart valve; Z88.0 Allergy status to penicillin; Z91.018 Allergy to other foods
CPT/HCPCS: 36415; 80048; 80053; 80076; 82565; 84520; 85025; 85610; 94640; 94760

== ENCOUNTER → 2020-09-22 | Day surgery (SDC) | payer MEDICARE ==
[~2020-09-22] MED LIST changes: -ACETAMINOPHEN 500 MG TAB (TYLENOL) PO PRN; +ALBU18HF2 IH; -ALPRAZolam 0.25 MG (XANAX) TAB PO PRN; +ASPI81TA64 PO; -BISACODYL 10 MG SUPP (DULCOLAX) PR PRN; -CALCIUM CARBONATE 500 MG (TUMS) TAB.CHEW PO PRN; -DOCUSATE SODIUM 100 MG (COLACE) CAP PO PRN; -DOCUSATE SODIUM 100 MG (COLACE) CAP PO SCH; -FLEET ENEMA ADULT 1 EA BTL PR PRN; -LACTULOSE SYRUP 10GM/15ML (ENULOSE) 30ML UDC PO PRN; -LOPERAMIDE 2 MG (IMODIUM) TABLET PO PRN; -MELATONIN 3 MG TABLET PO PRN; +MICO90PO TOP; +NYST15CR TP; -ONDANSETRON 4 MG (ZOFRAN) ORAL DISSOLVE TAB PO PRN; +POTA10TA6 PO; -diphenhydrAMINE 25 MG TAB (BENADRYL) PO PRN; -guaiFENesin/CODEINE (ROBITUSSIN AC) 10ML UDC PO PRN
--- NOTE | 2020-09-22 18:09 | OPERATIVE REPORT ---
DATE OF SERVICE: 09/22/2020 PREOPERATIVE DIAGNOSIS: Right ureteral obstruction post-stent. POSTOPERATIVE DIAGNOSIS: Right ureteral obstruction post-stent. OPERATION PERFORMED: Cystoscopy and removal of right ureteral stent. SURGEON: Pb Bryson MD ANESTHESIA: Local. COMPLICATIONS: None. DESCRIPTION OF PROCEDURE: With the patient in the frog position in her bed, genitalia were prepped and draped in the usual sterile fashion. Flexible cystoscope was introduced under vision. The distal end of the right ureteral stent was visualized. It was grasped with a grasping forceps and removed completely. The patient tolerated the procedure and anesthesia well, remained in her bed in stable condition. PLAN: We will follow her BUN and creatinine and may need later on some radiographic testing to confirm no more obstruction of the ureter, which I believe was an intrinsic, not extrinsic, but we will have to confirm that. The plan was explained to the patient. Job ID: [id number] DocumentID: [id number] Dictated Date: 09/22/2020 12:58:35 Farm Operations Manager Date: 09/22/2020 18:08:31 Dictated By: PB BRYSON MD
== END ==
LOC: SDC 10:14
PROVIDERS: ATTEND Urology
DX: N13.5 Crossing vessel and stricture of ureter without hydronephrosis (principal); I10 Essential (primary) hypertension; I48.91 Unspecified atrial fibrillation; E03.9 Hypothyroidism, unspecified; N17.9 Acute kidney failure, unspecified; N18.9 Chronic kidney disease, unspecified; N39.0 Urinary tract infection, site not specified; Z79.899 Other long term (current) drug therapy; Z88.0 Allergy status to penicillin; Z91.018 Allergy to other foods

== ENCOUNTER 2020-10-06 08:38 | Observation (INO) | payer MEDICARE ==
[2020-10-06] VITALS (11 sets, daily range): BP systolic 125–194; BP diastolic 56–98
[~2020-10-06] VITALS: Ht 175.2 cm; Wt 78.0 kg
[2020-10-06] MEDS ORDERED: TETANUS,DIPTH,PERTUSS P/F (BOOSTRIX) 0.5 ML VIAL IM ONE (08:45)
[2020-10-06] MEDS ORDERED: LIDOCAINE/EPI 2% 1:100,00 (XYLOCAINE) 20 ML VIAL INJ ONE (08:45)
[2020-10-06 09:53] LABS: BILIRUBIN,URINE NEGATIVE (NEGATIVE); CLARITY,URINE CLEAR; COLOR,URINE YELLOW; GLUCOSE, URINE (UA) NEGATIVE (NEGATIVE); KETONES,URINE NEGATIVE (NEGATIVE); LEUKOCYTE ESTERASE ,URINE NEGATIVE (NEGATIVE); NITRITE,URINE NEGATIVE (NEGATIVE); PH,URINE 7.5 (5-9); PROTEIN,URINE 1+ (NEGATIVE)
[2020-10-06 09:59] LABS: BASOPHILS % (AUTO) 0 % (0-10); EOSINOPHILS # (AUTO) 0.2 10^3/uL (0.0-0.3); EOSINOPHILS % (AUTO) 3 % (0-10); HEMATOCRIT 33 % (35-52); HEMOGLOBIN 10.4 g/dL (11.5-16.0); LYMPHOCYTES # (AUTO) 1.2 10^3/uL (1.0-4.0); LYMPHOCYTES % (AUTO) 16 % (12-44); MEAN CORPUSCULAR HEMOGLOBIN 30 pg (25-34); MEAN CORPUSCULAR HGB CONC 31 g/dL (32-36); MEAN CORPUSCULAR VOLUME 95 fL (80-99); MEAN PLATELET VOLUME 9.4 fL (9.0-12.2); MONOCYTES # (AUTO) 1.1 10^3/uL (0.0-1.0); MONOCYTES % (AUTO) 14 % (0-12); NEUTROPHILS # (AUTO) 5.2 10^3/uL (1.8-7.8); NEUTROPHILS % (AUTO) 67 % (42-75); PLATELET COUNT 328 10^3/uL (130-400); WHITE BLOOD COUNT 7.8 10^3/uL (4.3-11.0)
[2020-10-06 10:01] LABS: BACTERIA,URINE MODERATE /HPF; RBC,URINE RARE /HPF
[2020-10-06 10:10] LABS: ALBUMIN 3.8 GM/DL (3.2-4.5)
[2020-10-06 10:11] LABS: CHLORIDE 103 MMOL/L (98-107); POTASSIUM 3.1 MMOL/L (3.6-5.0); SODIUM 141 MMOL/L (135-145)
[2020-10-06 10:12] LABS: CALCIUM 8.6 MG/DL (8.5-10.1)
[2020-10-06 10:13] LABS: GLUCOSE 111 MG/DL (70-105); TOTAL PROTEIN 6.9 GM/DL (6.4-8.2)
[2020-10-06 10:14] LABS: CARBON DIOXIDE 29 MMOL/L (21-32)
[2020-10-06 10:15] LABS: BILIRUBIN,TOTAL 0.4 MG/DL (0.1-1.0)
[2020-10-06 10:16] LABS: ALKALINE PHOSPHATASE 121 U/L (40-136)
[2020-10-06 10:17] LABS: CREATININE SERUM 0.89 MG/DL (0.60-1.30); GFR ESTIMATED > 60
[2020-10-06 10:18] LABS: BUN/CREATININE RATIO 20
[2020-10-06 10:19] LABS: ALANINE AMINOTRANSFERASE 18 U/L (0-55); MAGNESIUM 1.8 MG/DL (1.6-2.4)
[2020-10-06 10:24] LABS: INR 6.3 (0.8-1.4); PROTHROMBIN TIME PATIENT 55.6 SEC (12.2-14.7)
--- NOTE | 2020-10-06 10:37 | Diagnostic Imaging Report ---
PROCEDURE: CT head, face, and cervical spine without contrast. TECHNIQUE: Multiple contiguous axial images were obtained through the head, neck, and facial bones without the use of intravenous contrast. Sagittal and coronal reformations through the cervical spine and facial bones were also performed. Auto Exposure Controls were utilized during the CT exam to meet ALARA standards for radiation dose reduction. INDICATION: Trauma. Forehead laceration. COMPARISON: CT head without contrast 09/06/2020. FINDINGS: CT HEAD AND MAXILLOFACIAL: Moderate generalized cerebral and cerebellar parenchymal volume loss. Prominence of the ventricular system appears out of proportion to the degree of atrophy. No intracranial hemorrhage or extra-axial fluid collections. No CT evidence of a territorial infarction. Scalp laceration overlying the left frontal bone. No calvarial or skull base fractures. No maxillofacial fractures. Normal alignment of the temporomandibular joints. Paranasal sinuses and mastoids are clear. The orbits are unremarkable. CT CERVICAL SPINE: Normal alignment. Vertebral body heights are preserved. No fractures. Moderate degenerative endplate changes. No high-grade spinal canal stenosis is evident on soft tissue windows. Partially visualized cardiac pacer. Moderate atherosclerotic calcifications in the carotid bifurcations. Lung apices are clear. IMPRESSION: 1. Scalp laceration/contusion overlying the left frontal bone. No underlying fracture. 2. No acute intracranial or cervical spine CT findings. 3. Prominent size of the ventricular system appears out of proportion to the degree of atrophy. Findings can be seen with normal pressure hydrocephalus in the appropriate clinical setting. Dictated by: Dictated on workstation # [id number]
[2020-10-06 10:41] LABS: FREE T4 (FREE THYROXINE) 1.14 NG/DL (0.70-1.48)
[2020-10-06] MEDS ORDERED: TRANEXAMIC ACID INJECTION 1,000 MG in NS (IVPB) 100 ML IV ONE (10:45)
[2020-10-06] MEDS ORDERED: NS IV 500 ML 500 ML IV SCH (10:45)
[2020-10-06] MEDS ORDERED: LABETALOL HCL 20 MG/4 ML VIAL IV ONE (10:45)
[2020-10-06] MEDS ORDERED: KCL 10 MEQ TAB (MICRO K) PO ONE (10:45)
--- NOTE | 2020-10-06 10:45 | ED Fall/Injury ---
General Chief Complaint: Laceration Stated Complaint: HEAD LAC Nursing Triage Note: TO ED PE W/C PATIENT REPORTS THAT SHE TRIPPED AND FELL OVER A CAT HITTING DOOR FRAME UNSURE PATIENT REPORTS SHE WAS CONFUSED FOR AWHILE. LACERATION TO L SIDE OF FOREHEAD Source: patient, family Exam Limitations: no limitations History of Present Illness Date Seen by Provider: Oct 06, 2020 Time Seen by Provider: 08:40 Initial Comments This patient presents to the emergency room with a large laceration on the left forehead and scalp after falling and striking her head on a door hinge. The fall was caused by tripping on a rug. She presents by private vehicle. She is uncertain if there was loss of consciousness. She had significant bleeding which has now stopped. She does feel a little lightheaded/dizzy. She is notably hypertensive and has not taken her medications yet today. She takes warfarin for "my pacemaker". Chart reveals a history of atrial fibrillation. She also has a hematoma on her right elbow. Allergies and Home Medications Allergies Coded Allergies: Penicillins (Verified Allergy, Unknown, 11/07/18) pineapple (Verified Allergy, Unknown, 11/09/18) Home Medications Albuterol Sulfate 1 Puff Puff, 1 PUFF INH Q4H PRN for SHORTNESS OF BREATH, (Reported) 1 PUFF = 90 MCG Amiodarone HCl 200 Mg Tablet, 200 MG PO DAILY, (Reported) Aspirin 81 Mg Tablet.dr, 81 MG PO DAILY, (Reported) Atorvastatin Calcium 20 Mg Tablet, 20 MG PO DAILY, (Reported) Carvedilol 12.5 Mg Tablet, 25 MG PO DAILY, (Reported) Diltiazem HCl 240 Mg Cap.er.deg, 240 MG PO DAILY, (Reported) Furosemide 20 Mg Tablet, 20 MG PO DAILY, (Reported) Gabapentin 100 Mg Capsule, 200 MG PO DAILY, (Reported) TAKES 2 (100MG) CAPSULES Hydrocodone/Acetaminophen 1 Each Tablet, 1 TAB PO Q6H PRN for PAIN-MODERATE (5- 7), (Reported) Levothyroxine Sodium 75 Mcg Tablet, 75 MCG PO DAILY, (Reported) Nystatin 15 Gm Cream..g., 1 APPLIC TP DAILY, (Reported) Potassium Chloride 10 Meq Tablet.er, 10 MEQ PO DAILY, (Reported) Warfarin Sodium 4 Mg Tablet, 4 MG PO HRENANDEZ,MO,WE,TH,SA, (Reported) Warfarin Sodium 4 Mg Tablet, 6 MG PO , (Reported) TAKES 1 & 1/2 (4MG) TABLET Patient Home Medication List Home Medication List Reviewed: Yes Review of Systems Review of Systems Constitutional: no symptoms reported Eyes: No Symptoms Reported Ears, Nose, Mouth, Throat: see HPI Respiratory: no symptoms reported Cardiovascular: no symptoms reported Gastrointestinal: no symptoms reported Genitourinary: no symptoms reported Musculoskeletal: no symptoms reported Skin: see HPI Psychiatric/Neurological: No Symptoms Reported Past Yzowzin-Qcnpyv-Iosvqn Hx Past Med/Social Hx: Reviewed Nursing Past Med/Soc Hx Patient Social History Alcohol Use: Denies Use Smoking Status: Never a Smoker Recent Infectious Disease Expo: No Recent Hopitalizations: No Immunizations Up To Date Tetanus Booster (TDap): Unknown PED Vaccines UTD: No Date of Pneumonia Vaccine: Apr 12, 2018 Date of Influenza Vaccine: Apr 08, 2020 Seasonal Allergies Seasonal Allergies: Yes Past Medical History Surgeries: Yes (RIGHT INGUINAL HERNIA REPAIR, 1978 RIGHT KNEE SURGERY, ANKLE 1999) Coronary Stent, Pacemaker Respiratory: No Tuberculosis Cardiac: Yes (PACEMAKER, VALVE REPLACED) Atrial Fibrillation, High Cholesterol, Hypertension Neurological: No Reproductive Disorders: No Female Reproductive Disorders: Denies Sexually Transmitted Disease: No HIV/AIDS: No Genitourinary: No Gastrointestinal: No Musculoskeletal: No Endocrine: Yes Hypothyroidsim HEENT: Yes Cataract Hearing Impairment: Hard of Hearing, Hearing Aide Right, Hearing Aide Left Cancer: No Psychosocial: No (HX OF DEPRESSION YEARS AGO) Integumentary: No Blood Disorders: No Adverse Reaction/Blood Tranf: No Family Medical History Patient reports no known family medical history. No Pertinent Family Hx Physical Exam Vital Signs Vital Signs - First Documented 10/06/20 08:40 Pulse 81 Resp 18 B/P (MAP) 207/98 (134) Pulse Ox 95 O2 Delivery Room Air Capillary Refill : Less Than 3 Seconds Height, Weight, BMI Height: 5'9.00" Weight: 171lbs. 9.0oz. [id number]; 25.00 BMI Method:Stated General Appearance: WD/WN, no apparent distress HEENT: PERRL/EOMI, pharynx normal, other (No apparent dental injury. 5 to 6 cm gaping laceration on the left forehead and scalp. 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, no motor/sensory deficits, alert, normal mood/affect, oriented x 3 Skin: normal color, warm/dry, other (See above) [employer] Coma Score Best Eye Response: (4) Open Spontaneously Best Verbal Response: (5) Oriented Best Motor Response: (6) Obeys Commands [employer] Total: 15 Procedures/Interventions Date of ETT Placement: Sep 10, 2020 Time of ETT Placement: 929 Wound Location: Face, Scalp Wound Length (cm): 5.5 Wound's Depth, Shape: linear, irregular, sub Q Wound Explored: clean Irrigated w/ Saline (ccs): 250 Betadine Prep?: Yes Anesthesia: Lidocaine w/ Epi Volume Anesthetic (ccs): 14 Staple Repair: Stapler 35W (6) Suture: Prolene Suture Size: 4-0 Number of Sutures: 4 Skin was anesthetized with lidocaine with epinephrine. Wound was irrigated with normal saline. The portion of the wound over the forehead was approximated with suture. The Portion of the wound over the scalp was stapled. Patient tolerated the procedure well. Progress/Results/Core Measures Results/Orders Lab Results Laboratory Tests Test 10/06/20 09:47 10/06/20 09:53 Range/Units Urine Color YELLOW Urine Clarity CLEAR Urine pH 7.5 5-9 Urine Specific [place] 1.020 1.016-1.022 Urine Protein 1+ H NEGATIVE Urine Glucose (UA) NEGATIVE NEGATIVE Urine Ketones NEGATIVE NEGATIVE Urine Nitrite NEGATIVE NEGATIVE Urine Bilirubin NEGATIVE NEGATIVE Urine Urobilinogen 0.2 < = 1.0 MG/DL Urine Leukocyte Esterase NEGATIVE NEGATIVE Urine RBC (Auto) TRACE-I NEGATIVE Urine RBC RARE /HPF Urine WBC 2-5 /HPF Urine Crystals NONE /LPF Urine Bacteria MODERATE H /HPF Urine Casts NONE /LPF Urine Mucus NEGATIVE /LPF Urine Culture Indicated YES White Blood Count 7.8 4.3-11.0 10^3/uL Red Blood Count 3.50 L 3.80-5.11 10^6/uL Hemoglobin 10.4 L 11.5-16.0 g/dL Hematocrit 33 L 35-52 % Mean Corpuscular Volume 95 80-99 fL Mean Corpuscular Hemoglobin 30 25-34 pg Mean Corpuscular Hemoglobin Concent 31 L 32-36 g/dL Red Cell Distribution Width 13.9 10.0-14.5 % Platelet Count 328 130-400 10^3/uL Mean Platelet Volume 9.4 9.0-12.2 fL Immature Granulocyte % (Auto) 0 % Neutrophils (%) (Auto) 67 42-75 % Lymphocytes (%) (Auto) 16 12-44 % Monocytes (%) (Auto) 14 H 0-12 % Eosinophils (%) (Auto) 3 0-10 % Basophils (%) (Auto) 0 0-10 % Neutrophils # (Auto) 5.2 1.8-7.8 10^3/uL Lymphocytes # (Auto) 1.2 1.0-4.0 10^3/uL Monocytes # (Auto) 1.1 H 0.0-1.0 10^3/uL Eosinophils # (Auto) 0.2 0.0-0.3 10^3/uL Basophils # (Auto) 0.0 0.0-0.1 10^3/uL Immature Granulocyte # (Auto) 0.0 0.0-0.1 10^3/uL Prothrombin Time 55.6 *H 12.2-14.7 SEC INR Comment 6.3 *H 0.8-1.4 Sodium Level 141 135-145 MMOL/L Potassium Level 3.1 L 3.6-5.0 MMOL/L Chloride Level 103 98-107 MMOL/L Carbon Dioxide Level 29 21-32 MMOL/L Anion Gap 9 5-14 MMOL/L Blood Urea Nitrogen 18 7-18 MG/DL Creatinine 0.89 0.60-1.30 MG/DL Estimat Glomerular Filtration Rate > 60 BUN/Creatinine Ratio 20 Glucose Level 111 H 70-105 MG/DL Calcium Level 8.6 8.5-10.1 MG/DL Corrected Calcium 8.8 8.5-10.1 MG/DL Magnesium Level 1.8 1.6-2.4 MG/DL Total Bilirubin 0.4 0.1-1.0 MG/DL Aspartate Amino Transf (AST/SGOT) 17 5-34 U/L Alanine Aminotransferase (ALT/SGPT) 18 0-55 U/L Alkaline Phosphatase 121 40-136 U/L Total Protein 6.9 6.4-8.2 GM/DL Albumin 3.8 3.2-4.5 GM/DL Thyroid Stimulating Hormone (TSH) 0.91 0.35-4.94 UIU/ML Free Thyroxine 1.14 0.70-1.48 NG/DL My Orders Orders - JOHN KERNS MD Cbc With Automated Diff (10/06/20 08:43) Comprehensive Metabolic Panel (10/06/20 08:43) Magnesium (10/06/20 08:43) Protime With Inr (10/06/20 08:43) Thyroid Stimulating Hormone (10/06/20 08:43) Ua Culture If Indicated (10/06/20 08:43) Ed Iv/Invasive Line Start (10/06/20 08:43) Lidocaine/Epi 2% 1:100,000 (Xylocaine/Ep (10/06/20 08:45) Dipht,Pertuss(Acell),Tet Adult (Boostrix (10/06/20 08:45) Monitor-Rhythm Ecg Trace Only (10/06/20 08:43) Ct Head/Face/Cervical Wo (10/06/20 08:43) Free T4 (Free Thyroxine) (10/06/20 09:01) Urine Culture (10/06/20 09:47) Elbow, Right, 3 Views (10/06/20 10:06) Tranexamic Acid Injection (Cyklokapron I (10/06/20 10:45) Fresh Frozen Plasma (10/06/20 10:36) Ns Iv 500 Ml (Sodium Chloride 0.9%) (10/06/20 10:45) Abo Rh Type (10/06/20 10:36) Labetalol Injection (Normodyne Injection (10/06/20 10:45) Diltiazem Cd 24 Hr Capsule (Cardizem Cd (10/06/20 10:45) Potassium Chloride (Tablet) (Klor Con Ta (10/06/20 10:45) Medications Given in ED Current Medications Medications Dose Ordered Sig/Robbin Route Start Time Stop Time Status Last Admin Dose Admin Diltiazem HCl 240 mg ONCE ONCE PO 10/06/20 10:45 10/06/20 10:46 DC 10/06/20 11:01 240 MG Diphtheria/ Tetanus/Acell Pertussis 0.5 ml ONCE ONCE IM 10/06/20 08:45 10/06/20 08:46 DC 10/06/20 09:24 0.5 ML Labetalol HCl 20 mg ONCE ONCE IV 10/06/20 10:45 10/06/20 10:46 DC 10/06/20 10:52 20 MG Lidocaine/ Epinephrine 20 ml ONCE ONCE INJ 10/06/20 08:45 10/06/20 08:46 DC 10/06/20 09:25 20 ML Potassium Chloride 20 meq ONCE ONCE PO 10/06/20 10:45 10/06/20 10:46 DC 10/06/20 10:51 20 MEQ Tranexamic Acid 1000 mg/Sodium Chloride 110 ml @ 330 mls/hr ONCE ONCE IV 10/06/20 10:45 10/06/20 11:04 DC 10/06/20 11:03 330 MLS/HR Vital Signs/I&O 10/06/20 08:40 Pulse 81 Resp 18 B/P (MAP) 207/98 (134) Pulse Ox 95 O2 Delivery Room Air Blood Pressure Mean: 134 Progress Progress Note #1: Time: 10:44 Progress Note Patient will have hemostasis at the time of wound repair. However, now she is bleeding fairly briskly from the center of the wound. INR returned 6.3. A unit of FFP has been ordered along with the tranexamic acid bolus. Direct pressure is being applied to help control the bleeding. She is also still quite hypertensive. She has not yet taken her blood pressure medications for the day. Labetalol has been ordered along with her diltiazem. Blood pressure control should also help her bleeding. Progress Note #2: Time: 11:32 Progress Note Wound was approximated with a combination of jose f and sutures. There was hemostasis of the wound before during and after repair. However, I was called back to the room for brisk bleeding after CT scans were performed. CT was negative for significant injury. Direct application of pressure does not seem to be controlling her bleeding. A bolus of TXA is being administered while awaiting FFP to be thawed. We are trying to control blood pressure with labetalol. Case has been discussed with Dr. Joel, Dr. Mason, and Dr. Banda. Oral potassium was given for hypokalemia. Progress Note #3: Progress Note Patient was seen by Dr. Joel in the emergency room. He applied an additional staple. Hemostasis was achieved. Diagnostic Imaging Diagonstic Imaging: CT Plain Films/CT/US/NM/MRI: facial bones, c-spine, head Comments NAME: JAZMÍN GRIDER [facility] REC#: [id number] PT STATUS: ADM Mariam : 1940 PHYSICIAN: JOHN KERNS MD ADMIT DATE: 10/06/20/ICU Signed Date of Exam:10/06/20 CT HEAD/FACE/CERVICAL WO PROCEDURE: CT head, face, and cervical spine without contrast. TECHNIQUE: Multiple contiguous axial images were obtained through the head, neck, and facial bones without the use of intravenous contrast. Sagittal and coronal reformations through the cervical spine and facial bones were also performed. Auto Exposure Controls were utilized during the CT exam to meet ALARA standards for radiation dose reduction. INDICATION: Trauma. Forehead laceration. COMPARISON: CT head without contrast 09/06/2020. FINDINGS: CT HEAD AND MAXILLOFACIAL: Moderate generalized cerebral and cerebellar parenchymal volume loss. Prominence of the ventricular system appears out of proportion to the degree of atrophy. No intracranial hemorrhage or extra-axial fluid collections. No CT evidence of a territorial infarction. Scalp laceration overlying the left frontal bone. No calvarial or skull base fractures. No maxillofacial fractures. Normal alignment of the temporomandibular joints. Paranasal sinuses and mastoids are clear. The orbits are unremarkable. CT CERVICAL SPINE: Normal alignment. Vertebral body heights are preserved. No fractures. Moderate degenerative endplate changes. No high-grade spinal canal stenosis is evident on soft tissue windows. Partially visualized cardiac pacer. Moderate atherosclerotic calcifications in the carotid bifurcations. Lung apices are clear. IMPRESSION: 1. Scalp laceration/contusion overlying the left frontal bone. No underlying fracture. 2. No acute intracranial or cervical spine CT findings. 3. Prominent size of the ventricular system appears out of proportion to the degree of atrophy. Findings can be seen with normal pressure hydrocephalus in the appropriate clinical setting. Dictated by: Dictated on workstation # [id number] Dict: 10/06/20 1023 Trans: 10/06/20 1704 [id number] Interpreted by: NENA DASILVA MD Electronically signed by: NENA DASILVA MD 10/06/20 170 Diagonstic Imaging: Xray Plain Films/CT/US/NM/MRI: elbow Comments NAME: JAZMÍN GRIDER [facility] REC#: [id number] PT STATUS: REG ER : 1940 PHYSICIAN: JOHN KERNS MD ADMIT DATE: 10/06/20/ER Signed Date of Exam:10/06/20 ELBOW, RIGHT, 3 VIEWS Indication: Right elbow injury from a fall 3 views right elbow were obtained and compared with the exam from 07/26/2020. There is no acute fracture. There is no dislocation. There is no pathologic effusion. IMPRESSION: No acute abnormality seen in the elbow Dictated by: Dictated on workstation # [id number] Dict: 10/06/20 1118 Trans: 10/06/20 1122 [id number] Interpreted by: MOLLY HOGAN MD Electronically signed by: MOLLY HOGAN MD 10/06/20 112 Diagonstic Imaging: Xray Plain Films/CT/US/NM/MRI: chest Comments NAME: JAZMÍN GRIDER [facility] REC#: [id number] PT STATUS: ADM Mariam : 1940 PHYSICIAN: ZHANG BANDA DO ADMIT DATE: 10/06/20/ICU Signed Date of Exam:10/06/20 CHEST 1 VIEW, AP/PA ONLY INDICATION: Shortness of breath. EXAMINATION: Portable chest at 2:47 PM. FINDINGS: The heart is mildly enlarged. The pulmonary vascularity is normal. There is a dual-chamber pacemaker. There is a loop recorder projecting over the left lower chest. The heart size and pulmonary vascularity are normal. The lungs are clear. There are no effusions or pneumothoraces. IMPRESSION: No acute abnormalities in the chest. Dictated by: Dictated on workstation # [id number] Dict: 10/06/20 1540 Trans: 10/06/20 1700 [id number] Interpreted by: MOLLY HOGAN MD Electronically signed by: MOLLY HOGAN MD 10/06/20 170 Departure Communication (Admissions) Time/Spoke to Admitting Phy: 11:05 Dr. Joel Time/Spoke to Consulting Phy: 11:[address] Banda Impression Primary Impression: Supratherapeutic INR Additional Impressions: Facial laceration Qualified Codes: S01.81XA - Laceration without foreign body of other part of head, initial encounter Hemorrhage from wound Fall on same level Qualified Codes: W18.30XA - Fall on same level, unspecified, initial encounter Hypokalemia Disposition: ADMITTED INPATIENT Condition: Improved Admissions Decision to Admit Reason: Admit from ER (Trauma) Decision to Admit/Date: Oct 06, 2020 Time/Decision to Admit Time: 11:00 Departure-Patient Inst. Referrals: JOAQUÍN PERERA MD (PCP/Family) Primary Care Physician Copy Copies To 1: JOAQUÍN PERERA MD, JOSHUA T MD Oct 06, 2020 10:45
--- NOTE | 2020-10-06 11:23 | Diagnostic Imaging Report ---
Indication: Right elbow injury from a fall 3 views right elbow were obtained and compared with the exam from 07/26/2020. There is no acute fracture. There is no dislocation. There is no pathologic effusion. IMPRESSION: No acute abnormality seen in the elbow Dictated by: Dictated on workstation # [id number]
--- NOTE | 2020-10-06 12:17 | History & Physical-Surgical ---
CAMI GARCIA MED STUDENT 10/06/20 1217: History of Present Illness History of Present Illness Reason for visit/HPI CC: Fall HPI: Patient presents to ED via private vehicle after sustaining a fall at 0800 this morning. She reports walking down the [place] in her house and then tripping over a rug and hitting her head on the door hinges. She is unsure as to whether or not she lost consciousness or not. She reports feeling "dazed and dizzy" at present time. She reports having multiple falls recently. She denied any chest fluttering/palpitations prior to fall. She is complaining of mild pain around the site of the scalp laceration but is refusing to rate pain. She describes the pain has a mild throbbing sensation over the scalp laceration site that doesn't radiate. Denies nausea, vomiting, blurry vision, double vision, or other compl aints. Date of Admission Oct 06, 2020 at 11:11 Date Seen by a Provider: Oct 06, 2020 Time Seen by a Provider: 11:55 I consulted on this patient on 10/06/20 12:16 Attending Physician Michael Acuna DO Admitting Physician Osman Prather MD Consult Allergies and Home Medications Allergies Coded Allergies: Penicillins (Verified Allergy, Unknown, 11/07/18) pineapple (Verified Allergy, Unknown, 11/09/18) Home Medications Albuterol Sulfate 18 Gm Hfa.aer.ad, 0 GM IH RTQ6HR Prescribed by: DAYA VILLEGAS on 09/25/20629 Aspirin 81 Mg Tab.chew, 81 MG PO DAILY Prescribed by: DAYA VILLEGAS on 09/25/20629 Atorvastatin Calcium 20 Mg Tablet, 20 MG PO DAILY, (Reported) Carvedilol 12.5 Mg Tablet, 25 MG PO BID Prescribed by: DAYA VILLEGAS on 09/25/20629 Diltiazem HCl 240 Mg Cap.er.deg, 240 MG PO DAILY, (Reported) Furosemide 20 Mg Tablet, 20 MG PO DAILY, (Reported) Gabapentin 100 Mg Capsule, 200 MG PO DAILY, (Reported) TAKES 2 (100MG) CAPSULES Levothyroxine Sodium 75 Mcg Tablet, 75 MCG PO DAILY, (Reported) Miconazole Nitrate 90 Gm Powder, 0 GM TOP BID Prescribed by: DAYA VILLEGAS on 2/18/21 0630 Nystatin 15 Gm Cream..g., 0 GM TP TID Prescribed by: DAYA VILLEGAS on 09/25/20629 Potassium Chloride 10 Meq Tablet.er, 10 MEQ PO DAILY@0700 Prescribed by: DAYA VILLEGAS on 09/25/20 0630 Warfarin Sodium 4 Mg Tablet, 4 MG PO HERNANDEZ,MO,WE,TH,SA, (Reported) Warfarin Sodium 4 Mg Tablet, 6 MG PO , (Reported) TAKES 1 & 1/2 (4MG) TABLET Past Dqiriwm-Ppwwrc-Jjfqgk Hx Patient Social History Smoking Status: Never a Smoker Recent Hopitalizations: Yes (patient states she was just discharged last tuesday from hospital) Physical Abuse Screen: No Alcohol Use?: No Immunizations Up To Date Tetanus Booster (TDap): Unknown PED Vaccines UTD: No Date of Pneumonia Vaccine: Apr 12, 2018 Date of Influenza Vaccine: Apr 08, 2020 Seasonal Allergies Seasonal Allergies: Yes Surgeries History of Surgeries: Yes (RIGHT INGUINAL HERNIA REPAIR, 1978 RIGHT KNEE SURGERY, ANKLE 1999) Surgeries: Coronary Stent, Pacemaker Respiratory History of Respiratory Disorde: No Respiratory Disorders: Tuberculosis Cardiovascular History of Cardiac Disorders: Yes (PACEMAKER, VALVE REPLACED) Cardiac Disorders: Atrial Fibrillation, High Cholesterol, Hypertension Neurological History of Neurological Disord: No Reproductive System : No Hx Reproductive Disorders: No Sexually Transmitted Disease: No HIV/AIDS: No Female Reproductive Disorders: Denies Genitourinary History of Genitourinary Disor: No Gastrointestinal History of Gastrointestinal Di: No Musculoskeletal History of Musculoskeletal Dis: No Endocrine History of Endocrine Disorders: Yes Endocrine Disorders: Hypothyroidsim HEENT History of HEENT Disorders: Yes HEENT Disorders: Cataract Hearing Impairment: Hard of Hearing, Hearing Aide Right, Hearing Aide Left Cancer History of Cancer: No Psychosocial History of Psychiatric Problem: No (HX OF DEPRESSION YEARS AGO) Integumentary History of Skin or Integumenta: No Blood Transfusions History of Blood Disorders: No Adverse Reaction to a Blood Tr: No Family Medical History Significant Family History: No Pertinent Family Hx Family Medial History: Patient reports no known family medical history. Review of Systems Constitutional: No chills; dizziness; No fever EENTM: hearing loss; No blurred vision, No double vision Respiratory: no symptoms reported; No cough, No dyspnea on exertion, No short of breath, No stridor, No wheezing Cardiovascular: No chest pain; edema (BLE edema non pitting) Gastrointestinal: no symptoms reported; No constipation, No diarrhea, No nausea, No vomiting Genitourinary: no symptoms reported; No dysuria, No frequency : No Musculoskeletal: no symptoms reported Skin: change in color (abdominal bruising noted left lower quadrant); No pruritus, No rash Psychiatric/Neurological: No Symptoms Reported; Denies Anxiety, Denies Depressed All Other Systems Reviewed Negative Unless Noted: Yes Physical Exam Vital Signs Vital Signs - First Documented 10/06/20 10/06/20 08:40 12:06 Temp 37.3 Pulse 81 Resp 18 B/P (MAP) 207/98 (134) Pulse Ox 95 O2 Delivery Room Air Capillary Refill : Less Than 3 Seconds Height, Weight, BMI Height: 5'9.00" Weight: 171lbs. 9.0oz. 77.643264ez; 25.00 BMI Method:Stated Eyes: Left Eye Normal Inspection (small contusion superior and lateral to left orbit); Bilateral Eye PERRL, Bilateral Eye EOMI HEENT: PERRL/EOMI, Pharynx Normal, Moist Mucous Membranes; No Pharyngeal Erythema Neck: Full Range of Motion, Non Tender Respiratory: Chest Non Tender, Lungs Clear, No Accessory Muscle Use, No Respiratory Distress; No Crackles, No Rhonci, No Stridor, No Wheezing Cardiovascular: Regular Rate, Rhythm, Normal Peripheral Pulses; No Bradycardia, No Tachycardia; Other (patient has pacemaker) Gastrointestinal: Normal Bowel Sounds, Non Tender, Soft; No Distended, No Guarding, No Rebound; Tenderness (mild tenderness LLQ/visible brusing noted) Rectal: Deferred Back: No Muscle Spasm Extremity: Normal Capillary Refill, Non Tender, No Calf Tenderness Neurologic/Psychiatric: Alert, Oriented x3, No Motor/Sensory Deficits, Normal Mood/Affect Skin: Normal Color, Warm/Dry, Ecchymosis (superior and lateral to left orbit/bruising to lower left abd wall) Lymphatic: No Adenopathy Data Review Labs Laboratory Tests 10/06/20 09:47: Urine Color YELLOW, Urine Clarity CLEAR, Urine pH 7.5, Urine Specific [place] 1.020, Urine Protein 1+H, Urine Glucose (UA) NEGATIVE, Urine Ketones NEGATIVE, Urine Nitrite NEGATIVE, Urine Bilirubin NEGATIVE, Urine Urobilinogen 0.2, Urine Leukocyte Esterase NEGATIVE, Urine RBC (Auto) TRACE-I, Urine RBC RARE, Urine WBC 2-5, Urine Crystals NONE, Urine Bacteria MODERATEH, Urine Casts NONE, Urine Mucus NEGATIVE, Urine Culture Indicated YES 10/06/20 09:53: White Blood Count 7.8, Red Blood Count 3.50L, Hemoglobin 10.4L, Hematocrit 33L, Mean Corpuscular Volume 95, Mean Corpuscular Hemoglobin 30, Mean Corpuscular Hemoglobin Concent 31L, Red Cell Distribution Width 13.9, Platelet Count 328, M john Platelet Volume 9.4, Immature Granulocyte % (Auto) 0, Neutrophils (%) (Auto) 67, Lymphocytes (%) (Auto) 16, Monocytes (%) (Auto) 14H, Eosinophils (%) (Auto) 3, Basophils (%) (Auto) 0, Neutrophils # (Auto) 5.2, Lymphocytes # (Auto) 1.2, Monocytes # (Auto) 1.1H, Eosinophils # (Auto) 0.2, Basophils # (Auto) 0.0, Immature Granulocyte # (Auto) 0.0, Prothrombin Time 55.6*H, INR Comment 6.3*H, Sodium Level 141, Potassium Level 3.1L, Chloride Level 103, Carbon Dioxide Level 29, Anion Gap 9, Blood Urea Nitrogen 18, Creatinine 0.89, Estimat Glomerular Filtration Rate > 60, BUN/Creatinine Ratio 20, Glucose Level 111H, Calcium Level 8.6, Corrected Calcium 8.8, Magnesium Level 1.8, Total Bilirubin 0.4, Aspartate Amino Transf (AST/SGOT) 17, Alanine Aminotransferase (ALT/SGPT) 18, Alkaline Phosphatase 121, Total Protein 6.9, Albumin 3.8, Thyroid Stimulating Hormone (TSH) 0.91, Free Thyroxine 1.14 Radiology NAME: JAZMÍN GRIDER [facility] REC#: [id number] PT STATUS: REG ER : 1940 PHYSICIAN: JOHN PUGH MD ADMIT DATE: 10/06/20/ER Draft Date of Exam:10/06/20 CT HEAD/FACE/CERVICAL WO PROCEDURE: CT head, face, and cervical spine without contrast. TECHNIQUE: Multiple contiguous axial images were obtained through the head, neck, and facial bones without the use of intravenous contrast. Sagittal and coronal reformations through the cervical spine and facial bones were also performed. Auto Exposure Controls were utilized during the CT exam to meet ALARA standards for radiation dose reduction. INDICATION: Trauma. Forehead laceration. COMPARISON: CT head without contrast 09/06/2020. FINDINGS: CT HEAD AND MAXILLOFACIAL: Moderate generalized cerebral and cerebellar parenchymal volume loss. Prominence of the ventricular system appears out of proportion to the degree of atrophy. No intracranial hemorrhage or extra-axial fluid collections. No CT evidence of a territorial infarction. Scalp laceration overlying the left frontal bone. No calvarial or skull base fractures. No maxillofacial fractures. Normal alignment of the temporomandibular joints. Paranasal sinuses and mastoids are clear. The orbits are unremarkable. CT CERVICAL SPINE: Normal alignment. Vertebral body heights are preserved. No fractures. Moderate degenerative endplate changes. No high-grade spinal canal stenosis is evident on soft tissue windows. Partially visualized cardiac pacer. Moderate atherosclerotic calcifications in the carotid bifurcations. Lung apices are clear. IMPRESSION: 1. Scalp laceration/contusion overlying the left frontal bone. No underlying fracture. 2. No acute intracranial or cervical spine CT findings. 3. Prominent size of the ventricular system appears out of proportion to the degree of atrophy. Findings can be seen with normal pressure hydrocephalus in the appropriate clinical setting. Dictated on workstation # [id number] Dict: 10/06/20 1023 Trans: 10/06/20 1036 [id number] Interpreted by: NENA DASILVA MD Electronically signed by: Assessment/Plan Assessment/Plan Admission Diagonsis Fall Scalp laceration Supratherapeutic INR Admission Status: Observation Reason for Inpatient Admission: Needs close monitoring in ICU s/p fall and scalp laceration Assessment/Plan Fall Scalp laceration ? LOC Supratherapeutic INR HTN CAD Aortic stenosis AFib Hypokalemia Admit patient to ICU for observation Transfuse 1 unit FFP due to supratherapeutic INR Bolus of tranexamic acid in ED given Plan to repeat Head CT in AM, sooner if neurologic decompensation occurs Neuro checks per ICU protocol Vitals per ICU protocol Consult pulm/critical care Consult medicine service MICHAEL ACUNA DO 10/06/20 1253: History of Present Illness History of Present Illness Reason for visit/HPI CC: fall. Seen and evaluated in ed. Patient is an 79 year old female who had fall this morning after tripping on a rug and hit forehead on door hinge. Sustained a laceration to the left forehead that has been closed by Dr. Pugh. Patient feeling dizzy. No visual changes. Throbbing pain in head. Has been having multiple falls recently. Is on anticoagulation for Afib. No other complaints at this time. Denies n/v fever sweats chills shortness of breath or chest pain. Patient had ct head and neck and facial bones without any acute traumatic findings except for laceration/hematoma of forehead. Currently GCS 15. Allergies and Home Medications Allergies Coded Allergies: Penicillins (Verified Allergy, Unknown, 11/07/18) pineapple (Verified Allergy, Unknown, 11/09/18) Home Medications Albuterol Sulfate 18 Gm Hfa.aer.ad, 0 GM IH RTQ6HR Prescribed by: DAYA VILLEGAS on 09/25/20629 Aspirin 81 Mg Tab.chew, 81 MG PO DAILY Prescribed by: DAYA VILLEGAS on 09/25/20629 Atorvastatin Calcium 20 Mg Tablet, 20 MG PO DAILY, (Reported) Carvedilol 12.5 Mg Tablet, 25 MG PO BID Prescribed by: DAYA VILLEGAS on 09/25/20629 Diltiazem HCl 240 Mg Cap.er.deg, 240 MG PO DAILY, (Reported) Furosemide 20 Mg Tablet, 20 MG PO DAILY, (Reported) Gabapentin 100 Mg Capsule, 200 MG PO DAILY, (Reported) TAKES 2 (100MG) CAPSULES Levothyroxine Sodium 75 Mcg Tablet, 75 MCG PO DAILY, (Reported) Miconazole Nitrate 90 Gm Powder, 0 GM TOP BID Prescribed by: DAYA VILLEGAS on 09/25/20629 Nystatin 15 Gm Cream..g., 0 GM TP TID Prescribed by: DAYA VILLEGAS on 09/25/20629 Potassium Chloride 10 Meq Tablet.er, 10 MEQ PO DAILY@0700 Prescribed by: DAYA VILLEGAS on 09/25/20629 Warfarin Sodium 4 Mg Tablet, 4 MG PO HERNANDEZ,MO,WE,TH,SA, (Reported) Warfarin Sodium 4 Mg Tablet, 6 MG PO TUE,TUE, (Reported) TAKES 1 & 1/2 (4MG) TABLET Patient Home Medication List Home Medication List Reviewed: Yes Past Jbyjtgm-Qganwk-Pbfiua Hx Reviewed Nursing Assessment Reviewed/Agree w Nursing PMH: Yes Family Medical History Significant Family History: No Pertinent Family Hx Family Medial History: Patient reports no known family medical history. Review of Systems Constitutional: No chills; dizziness; No fever EENTM: hearing loss; No blurred vision, No double vision Respiratory: No cough, No dyspnea on exertion, No short of breath, No wheezing Gastrointestinal: No constipation, No diarrhea, No nausea, No vomiting Genitourinary: No dysuria, No frequency : No Musculoskeletal: No muscle weakness, No neck pain Skin: change in color (abdominal bruising noted left lower quadrant) Psychiatric/Neurological: Denies Anxiety, Denies Depressed All Other Systems Reviewed Negative Unless Noted: Yes (Negative excepted noted.) Physical Exam General Appearance: No Apparent Distress, WD/WN HEENT: PERRL/EOMI, Other (left forehead hematoma/laceration repaired) Neck: Full Range of Motion, Non Tender Respiratory: Chest Non Tender, Lungs Clear, No Accessory Muscle Use, No Respiratory Distress Cardiovascular: Regular Rate, Rhythm; No Bradycardia, No Tachycardia; Other (patient has pacemaker) Gastrointestinal: Soft; No Distended, No Guarding, No Rebound; Tenderness (minimal tenderness LLQ/visible old brusing noted) Back: No No CVA Tenderness, No Muscle Spasm Extremity: Normal Capillary Refill, Non Tender, No Calf Tenderness, Swelling (right lower extremity) Neurologic/Psychiatric: Alert, Oriented x3, No Motor/Sensory Deficits, Normal Mood/Affect Skin: Warm/Dry, Ecchymosis (superior and lateral to left orbit/bruising to lower left abd wall) Lymphatic: No Adenopathy Assessment/Plan Assessment/Plan Admission Diagonsis Fall Scalp Laceration Supratherapeutic INR HTN Hx Afib Hypothyroidism Admission Status: Observation Assessment/Plan Fall Scalp Laceration Supratherapeutic INR HTN Hx Afib Hypothyroidism Admit patient to ICU for observation Transfuse FFP due to supratherapeutic INR Bolus of tranexamic acid in ED given Plan to repeat Head CT in AM, sooner if neurologic decompensation occurs Neuro checks Vitals per ICU protocol Consult pulm/critical care Consult medicine service Supervisory-Addendum Brief Verification & Attestation Participated in pt care: history, MDM, physical Personally performed: exam, history, MDM, supervision of care Care discussed with: Medical Student Procedures: n/a Results interpretation: Verified all documentation Verification and Attestation of Medical Student E/M Service A medical student performed and documented this service in my presence. I reviewed and verified all information documented by the medical student and made modifications to such information, when appropriate. I personally performed the physical exam and medical decision making. Michael Acuna, Oct 06, 2020,13:17 CAMI GARCIA MED STUDENT Oct 06, 2020 12:17 MICHAEL ACUNA DO Oct 06, 2020 12:53
[2020-10-06] MEDS ORDERED: CATHETER FLUSH 10 ML SYR IV PRN (12:30)
[2020-10-06] MEDS ORDERED: LABETALOL HCL 20 MG/4 ML VIAL IV PRN (12:30)
--- NOTE | 2020-10-06 14:28 | Pulmonary Consultation ---
History of Present Illness History of Present Illness Date Seen by Provider: Oct 06, 2020 Time Seen by Provider: 14:22 Date of Admission History of Present Illness Allergies and Home Medications Allergies Coded Allergies: Penicillins (Verified Allergy, Unknown, 11/07/18) pineapple (Verified Allergy, Unknown, 11/09/18) Home Medications Albuterol Sulfate 18 Gm Hfa.aer.ad, 0 GM IH RTQ6HR Prescribed by: DAYA VILLEGAS on 09/25/20629 Aspirin 81 Mg Tab.chew, 81 MG PO DAILY Prescribed by: DAYA VILLEGAS on 09/25/20629 Atorvastatin Calcium 20 Mg Tablet, 20 MG PO DAILY, (Reported) Carvedilol 12.5 Mg Tablet, 25 MG PO BID Prescribed by: DAYA VILLEGAS on 09/25/20629 Diltiazem HCl 240 Mg Cap.er.deg, 240 MG PO DAILY, (Reported) Furosemide 20 Mg Tablet, 20 MG PO DAILY, (Reported) Gabapentin 100 Mg Capsule, 200 MG PO DAILY, (Reported) TAKES 2 (100MG) CAPSULES Levothyroxine Sodium 75 Mcg Tablet, 75 MCG PO DAILY, (Reported) Miconazole Nitrate 90 Gm Powder, 0 GM TOP BID Prescribed by: DAYA VILLEGAS on 09/25/20629 Nystatin 15 Gm Cream..g., 0 GM TP TID Prescribed by: DAYA VILLEGAS on 09/25/20629 Potassium Chloride 10 Meq Tablet.er, 10 MEQ PO DAILY@0700 Prescribed by: DAYA VILLEGAS on 09/25/20629 Warfarin Sodium 4 Mg Tablet, 4 MG PO HERNANDEZ,MO,WE,TH,SA, (Reported) Warfarin Sodium 4 Mg Tablet, 6 MG PO TUE,TUE, (Reported) TAKES 1 & 1/2 (4MG) TABLET Past Lhenrkd-Rctotp-Mqjjyy Hx Patient Social History Alcohol Use: Denies Use Smoking Status: Never a Smoker Recent Infectious Disease Expo: No Recent Hopitalizations: Yes (patient states she was just discharged last tuesday from hospital) Alcohol Use?: No Immunizations Up To Date Tetanus Booster (TDap): Unknown PED Vaccines UTD: No Date of Pneumonia Vaccine: Apr 12, 2018 Date of Influenza Vaccine: Apr 08, 2020 Seasonal Allergies Seasonal Allergies: Yes Past Medical History Surgeries: Yes (RIGHT INGUINAL HERNIA REPAIR, 1979 RIGHT KNEE SURGERY, ANKLE 2000) Coronary Stent, Pacemaker Respiratory: No Tuberculosis Cardiac: Yes (PACEMAKER, VALVE REPLACED) Atrial Fibrillation, High Cholesterol, Hypertension Neurological: No : No Reproductive Disorders: No Female Reproductive Disorders: Denies Sexually Transmitted Disease: No HIV/AIDS: No Genitourinary: No Gastrointestinal: No Musculoskeletal: No Endocrine: Yes Hypothyroidsim HEENT: Yes Cataract Hearing Impairment: Hard of Hearing, Hearing Aide Right, Hearing Aide Left Cancer: No Psychosocial: No (HX OF DEPRESSION YEARS AGO) Integumentary: No Blood Disorders: No Adverse Reaction/Blood Tranf: No Family Medical History Patient reports no known family medical history. No Pertinent Family Hx Review of Systems Time Seen by Provider: 14:37 Sepsis Event Evaluation Height, Weight, BMI Height: 5'9.00" Weight: 171lbs. 9.0oz. 77.813562up; 25.02 BMI Method:Stated Exam Exam Vital Signs Date Time Temp Pulse Resp B/P (MAP) Pulse Ox O2 Delivery O2 Flow Rate FiO2 10/06/20 12:37 37.1 Room Air 10/06/20 12:25 36.7 74 20 173/94 95 10/06/20 12:15 173/94 (120) Room Air 10/06/20 12:06 37.3 63 14 194/85 93 10/06/20 11:58 75 18 178/88 93 Room Air 10/06/20 08:40 81 18 207/98 (134) 95 Room Air Height & Weight Height: 5'9.00" Weight: 171lbs. 9.0oz. 77.667509nc; 25.02 BMI Method:Stated General Appearance: No Apparent Distress, WD/WN HEENT: PERRL/EOMI, Other (left forehead hematoma/laceration repaired) Neck: Full Range of Motion, Non Tender Respiratory: Chest Non Tender, Lungs Clear, No Accessory Muscle Use, No Respiratory Distress Cardiovascular: Regular Rate, Rhythm; No Bradycardia, No Tachycardia; Other (patient has pacemaker) Capillary Refill: Less Than 3 Seconds Extremity: Normal Capillary Refill, Non Tender, No Calf Tenderness, Swelling (right lower extremity) Neurologic/Psychiatric: Alert, Oriented x3, No Motor/Sensory Deficits, Normal Mood/Affect Skin: Warm/Dry, Ecchymosis (superior and lateral to left orbit/bruising to lower left abd wall) Lymphatic: No Adenopathy Results Lab Laboratory Tests 10/06/20 09:53 Assessment/Plan Assessment/Plan s/p acute unwitnessed fall with lacerationof left forehead and scalp -CT head is negative -Continue neurochecks Coumadin coagulopathy -s/p FFP and TXA hx of Afib and Pacemeaker -Pt takes coumadin at home- Will continue to hold for now Hypertension -Restart Coreg. -PRN Labetalol Hypokalemia -Replace ZHANG HERCULES DO Oct 06, 2020 14:28
[2020-10-06] MEDS ORDERED: morphine INJ 4 MG/ML 1 ML (VIAL/SYRINGE) IVP PRN (14:30)
[2020-10-06] MEDS ORDERED: CARV12.53 PO (14:52)
[2020-10-06] MEDS ORDERED: NYST15CR TP (14:52)
[2020-10-06] MEDS ORDERED: AMIO200T6 PO (14:52)
[2020-10-06] MEDS ORDERED: ACHD5005 PO (14:52)
[2020-10-06] MEDS ORDERED: RT-ALBUINH INH (14:52)
[2020-10-06] MEDS ORDERED: POTA10TA PO (14:52)
[2020-10-06] MEDS ORDERED: ASPI-1238 PO (15:38)
--- NOTE | 2020-10-06 15:54 | Diagnostic Imaging Report ---
INDICATION: Shortness of breath. EXAMINATION: Portable chest at 2:47 PM. FINDINGS: The heart is mildly enlarged. The pulmonary vascularity is normal. There is a dual-chamber pacemaker. There is a loop recorder projecting over the left lower chest. The heart size and pulmonary vascularity are normal. The lungs are clear. There are no effusions or pneumothoraces. IMPRESSION: No acute abnormalities in the chest. Dictated by: Dictated on workstation # [id number]
[2020-10-06] MEDS: CARVEDILOL 12.5 MG (COREG) TABLET PO SCH (16:33)
[2020-10-06] MEDS: CATHETER FLUSH 10 ML SYR IV SCH ×2 (16:36→22:32)
[2020-10-06] MEDS: inSUlin ASPART (NovoLOG) 1 UNIT/0.01 ML (CHARGE PER UNIT) SC SCH ×2 (18:16→21:35)
[2020-10-06] MEDS ORDERED: POTASSIUM CL 10MEQ/50ML IVPB 200 ML IV ONE (19:27)
[2020-10-06] MEDS: POTASSIUM CL 10MEQ/50ML IVPB 50 ML IV SCH ×3 (20:34→22:40)
[2020-10-07] VITALS (15 sets, daily range): BP systolic 113–160; BP diastolic 60–77
[2020-10-07] MEDS: POTASSIUM CL 10MEQ/50ML IVPB 50 ML IV SCH (00:14)
[2020-10-07 03:44] LABS: BASOPHILS % (AUTO) 1 % (0-10); EOSINOPHILS # (AUTO) 0.2 10^3/uL (0.0-0.3); EOSINOPHILS % (AUTO) 4 % (0-10); HEMATOCRIT 29 % (35-52); HEMOGLOBIN 9.3 g/dL (11.5-16.0); LYMPHOCYTES # (AUTO) 1.7 10^3/uL (1.0-4.0); LYMPHOCYTES % (AUTO) 28 % (12-44); MEAN CORPUSCULAR HEMOGLOBIN 30 pg (25-34); MEAN CORPUSCULAR HGB CONC 32 g/dL (32-36); MEAN CORPUSCULAR VOLUME 95 fL (80-99); MEAN PLATELET VOLUME 9.5 fL (9.0-12.2); MONOCYTES # (AUTO) 1.1 10^3/uL (0.0-1.0); MONOCYTES % (AUTO) 18 % (0-12); NEUTROPHILS % (AUTO) 50 % (42-75); PLATELET COUNT 301 10^3/uL (130-400)
[2020-10-07 03:56] LABS: CHLORIDE 102 MMOL/L (98-107); POTASSIUM 3.2 MMOL/L (3.6-5.0); SODIUM 142 MMOL/L (135-145)
[2020-10-07 03:58] LABS: GLUCOSE 96 MG/DL (70-105)
[2020-10-07 04:00] LABS: CARBON DIOXIDE 25 MMOL/L (21-32)
[2020-10-07 04:02] LABS: CREATININE SERUM 0.86 MG/DL (0.60-1.30); GFR ESTIMATED > 60; PHOSPHORUS 2.4 MG/DL (2.3-4.7)
[2020-10-07 04:03] LABS: BUN/CREATININE RATIO 14
[2020-10-07 04:04] LABS: MAGNESIUM 1.7 MG/DL (1.6-2.4)
--- NOTE | 2020-10-07 05:05 | Pulmonary Progress Note ---
Subjective Time Seen by a Provider: 05:01 Subjective/Events-last exam No complications noted. Sepsis Event Evaluation Height, Weight, BMI Height: 5'9.00" Weight: 171lbs. 9.0oz. 77.779904qg; 25.02 BMI Method:Stated Exam Exam Vital Signs Date Time Temp Pulse Resp B/P (MAP) Pulse Ox O2 Delivery O2 Flow Rate FiO2 10/07/20 04:00 60 16 155/66 (95) 91 Room Air 10/07/20 03:36 Room Air 10/07/20 03:00 60 16 141/62 (88) 91 Room Air 10/07/20 02:00 61 18 151/65 (93) 92 Room Air 10/07/20 01:00 60 16 151/66 (94) 92 Room Air 10/07/20 01:00 60 10/07/20 00:37 Room Air 10/07/20 00:00 60 15 157/66 (96) 93 Room Air 10/06/20 23:00 61 28 156/64 (94) 92 Room Air 10/06/20 22:00 60 17 140/58 (85) 89 Room Air 10/06/20 21:32 Room Air 10/06/20 21:12 35.5 10/06/20 21:00 61 17 146/60 (88) 91 Room Air 10/06/20 20:32 62 16 127/59 (81) 95 Room Air 10/06/20 20:00 60 24 125/56 (79) 92 Room Air 10/06/20 19:00 61 144/58 (86) 92 Room Air 10/06/20 19:00 61 10/06/20 16:28 93 Room Air 10/06/20 16:00 69 151/71 (97) 93 Room Air 10/06/20 15:00 66 151/98 (115) 94 Room Air 10/06/20 12:37 37.1 Room Air 10/06/20 12:28 93 Room Air 10/06/20 12:25 36.7 74 20 173/94 95 10/06/20 12:15 173/94 (120) Room Air 10/06/20 12:06 37.3 63 14 194/85 93 10/06/20 11:58 75 18 178/88 93 Room Air 10/06/20 08:40 81 18 207/98 (134) 95 Room Air I & O0 10/07/20 07:00 Intake Total 795 ml Output Total 150 ml Balance 645 ml Height & Weight Height: 5'9.00" Weight: 171lbs. 9.0oz. 77.071150yg; 25.02 BMI Method:Stated General Appearance: No Apparent Distress, WD/WN HEENT: PERRL/EOMI, Other (left forehead hematoma/laceration repaired) Neck: Full Range of Motion, Non Tender Respiratory: Chest Non Tender, Lungs Clear, No Accessory Muscle Use, No Respiratory Distress Cardiovascular: Regular Rate, Rhythm; No Bradycardia, No Tachycardia; Other (patient has pacemaker) Capillary Refill: Less Than 3 Seconds Gastrointestinal: non tender, soft Extremity: Normal Capillary Refill, Non Tender, No Calf Tenderness, Swelling (right lower extremity) Neurologic/Psychiatric: Alert, Oriented x3, No Motor/Sensory Deficits, Normal Mood/Affect Skin: Warm/Dry, Ecchymosis (superior and lateral to left orbit/bruising to lower left abd wall) Lymphatic: No Adenopathy Results Lab Laboratory Tests 10/06/20 09:53 10/07/20 03:25 Assessment/Plan Assessment/Plan s/p acute unwitnessed fall with lacerationof left forehead and scalp -CT head is negative -neuro checks -Surgery is following Coumadin coagulopathy -s/p FFP and TXA -Repeat PT/INR hx of Afib and Pacemeaker -Pt takes coumadin at home- Will continue to hold for now Hypertension - home meds -PRN Labetalol Hypokalemia -Replace ZHANG HERCULES DO Oct 07, 2020 05:05
[2020-10-07] MEDS: CATHETER FLUSH 10 ML SYR IV SCH ×2 (05:27→14:12)
[2020-10-07] MEDS: inSUlin ASPART (NovoLOG) 1 UNIT/0.01 ML (CHARGE PER UNIT) SC SCH ×2 (05:28→12:00)
[2020-10-07] MEDS: MAGNESIUM 1 GM/100 ML IVPB 100 ML IV SCH (05:32)
[2020-10-07 05:35] LABS: INR 3.4 (0.8-1.4); PROTHROMBIN TIME PATIENT 34.9 SEC (12.2-14.7)
[2020-10-07] MEDS ORDERED: POTASSIUM CL 10MEQ/50ML IVPB 50 ML IV SCH (06:00)
[2020-10-07] MEDS ORDERED: MAGNESIUM 1 GM/100 ML IVPB 100 ML IV SCH (06:00)
[2020-10-07] MEDS ORDERED: KCL 20 MEQ TAB (K-DUR) PO SCH (06:00)
[2020-10-07] MEDS ORDERED: LEVOTHYROXINE 75 MCG (LEVOTHROID) TABLET PO SCH (06:30)
--- NOTE | 2020-10-07 07:02 | Progress Note - Surgery ---
CAMI GARCIA MED STUDENT 10/07/20 0702: Subjective Date Seen by a Provider: Oct 07, 2020 Time Seen by a Provider: 06:45 Subjective/Events-last exam Patient alert and oriented x 4 this morning. She is complaining of right elbow pain that she rates at a 9/10. States that movement worsens the pain. Rest lessens the pain. States she'd rather not take pain meds unless absolutely necessary. Right elbow is tender to palpation. She denies headache, blurry vision, nausea, or vomiting. States she slept well over night and reports minimal discomfort around the site of her scalp laceration. She did report tenderness when palpating just above her left orbit. States they came and took an x-ray already this morning. She is tolerating po well so far without complaints. Review of Systems General: No Chills, No Night Sweats HEENT: No Head Aches, No Visual Changes Pulmonary: No Dyspnea, No Cough Cardiovascular: No: Chest Pain, Palpitations, Edema, Lt Headedness Gastrointestinal: No: Nausea, Vomiting, Abdominal Pain, Diarrhea, Constipation Genitourinary: No Dysuria, No Frequency Musculoskeletal: arm pain (Right elbow pain reported); No: neck pain, shoulder pain Neurological: No: Weakness, Numbness, Change in speech, Confusion Objective Exam Vital Signs Date Time Temp Pulse Resp B/P (MAP) Pulse Ox O2 Delivery O2 Flow Rate FiO2 10/07/20 06:00 60 15 159/63 (95) 94 Room Air 10/07/20 05:00 61 15 149/64 (92) 91 Room Air 10/07/20 04:00 60 16 155/66 (95) 91 Room Air 10/07/20 03:36 Room Air 10/07/20 03:00 60 16 141/62 (88) 91 Room Air 10/07/20 02:00 61 18 151/65 (93) 92 Room Air 10/07/20 01:00 60 16 151/66 (94) 92 Room Air 10/07/20 01:00 60 10/07/20 00:37 Room Air 10/07/20 00:00 60 15 157/66 (96) 93 Room Air 10/06/20 23:00 61 28 156/64 (94) 92 Room Air 10/06/20 22:00 60 17 140/58 (85) 89 Room Air 10/06/20 21:32 Room Air 10/06/20 21:12 35.5 10/06/20 21:00 61 17 146/60 (88) 91 Room Air 10/06/20 20:32 62 16 127/59 (81) 95 Room Air 10/06/20 20:00 60 24 125/56 (79) 92 Room Air 10/06/20 19:00 61 144/58 (86) 92 Room Air 10/06/20 19:00 61 10/06/20 16:28 93 Room Air 10/06/20 16:00 69 151/71 (97) 93 Room Air 10/06/20 15:00 66 151/98 (115) 94 Room Air 10/06/20 12:37 37.1 Room Air 10/06/20 12:28 93 Room Air 10/06/20 12:25 36.7 74 20 173/94 95 10/06/20 12:15 173/94 (120) Room Air 10/06/20 12:06 37.3 63 14 194/85 93 10/06/20 11:58 75 18 178/88 93 Room Air 10/06/20 08:40 81 18 207/98 (134) 95 Room Air I & O 10/07/20 07:00 Intake Total 845 ml Output Total 150 ml Balance 695 ml Capillary Refill : Less Than 3 Seconds General Appearance: No Apparent Distress, WD/WN HEENT: PERRL/EOMI, Pharynx Normal, Other (left forehead hematoma/laceration r epaired) Neck: Full Range of Motion, Non Tender Respiratory: Chest Non Tender, No Accessory Muscle Use, No Respiratory Distress, Crackles (bibasilar crackles), Decreased Breath Sounds; No Rhonci, No Stridor, No Wheezing Cardiovascular: Regular Rate, Rhythm, No Edema, Normal Peripheral Pulses; No Bradycardia, No Tachycardia; Other (patient has pacemaker) Gastrointestinal: normal bowel sounds, non tender, soft; No distended, No guarding Extremity: Normal Capillary Refill, Non Tender, No Calf Tenderness, Swelling (right lower extremity mildly swollen) Neurologic/Psychiatric: Alert, Oriented x3, No Motor/Sensory Deficits, Normal Mood/Affect Skin: Warm/Dry, Ecchymosis (Ecchymosis superior and lateral to left orbit. Bilat lower abd bruising noted as well) Lymphatic: No Adenopathy Results Lab Laboratory Tests 10/06/20 09:47: Urine Color YELLOW, Urine Clarity CLEAR, Urine pH 7.5, Urine Specific [place] 1.020, Urine Protein 1+H, Urine Glucose (UA) NEGATIVE, Urine Ketones NEGATIVE, Urine Nitrite NEGATIVE, Urine Bilirubin NEGATIVE, Urine Urobilinogen 0.2, Urine Leukocyte Esterase NEGATIVE, Urine RBC (Auto) TRACE-I, Urine RBC RARE, Urine WBC 2-5, Urine Crystals NONE, Urine Bacteria MODERATEH, Urine Casts NONE, Urine Mucus NEGATIVE, Urine Culture Indicated YES 10/06/20 09:53: White Blood Count 7.8, Red Blood Count 3.50L, Hemoglobin 10.4L, Hematocrit 33L, Mean Corpuscular Volume 95, Mean Corpuscular Hemoglobin 30, Mean Corpuscular Hemoglobin Concent 31L, Red Cell Distribution Width 13.9, Platelet Count 328, Mean Platelet Volume 9.4, Immature Granulocyte % (Auto) 0, Neutrophils (%) (Auto) 67, Lymphocytes (%) (Auto) 16, Monocytes (%) (Auto) 14H, Eosinophils (%) (Auto) 3, Basophils (%) (Auto) 0, Neutrophils # (Auto) 5.2, Lymphocytes # (Auto) 1.2, Monocytes # (Auto) 1.1H, Eosinophils # (Auto) 0.2, Basophils # (Auto) 0.0, Immature Granulocyte # (Auto) 0.0, Prothrombin Time 55.6*H, INR Comment 6.3*H, Sodium Level 141, Potassium Level 3.1L, Chloride Level 103, Carbon Dioxide Level 29, Anion Gap 9, Blood Urea Nitrogen 18, Creatinine 0.89, Estimat Glomerular Filtration Rate > 60, BUN/Creatinine Ratio 20, Glucose Level 111H, Calcium Level 8.6, Corrected Calcium 8.8, Magnesium Level 1.8, Total Bilirubin 0.4, Aspartate Amino Transf (AST/SGOT) 17, Alanine Aminotransferase (ALT/SGPT) 18, Alkaline Phosphatase 121, Total Protein 6.9, Albumin 3.8, Thyroid Stimulating Hormone (TSH) 0.91, Free Thyroxine 1.14 10/06/20 16:39: Glucometer 85 10/06/20 20:26: Glucometer 118H 10/07/20 03:25: White Blood Count 6.0, Red Blood Count 3.08L, Hemoglobin 9.3L, Hematocrit 29L, Mean Corpuscular Volume 95, Mean Corpuscular Hemoglobin 30, Mean Corpuscular Hemoglobin Concent 32, Red Cell Distribution Width 13.9, Platelet Count 301, Mean Platelet Volume 9.5, Immature Granulocyte % (Auto) 0, Neutrophils (%) (Auto) 50, Lymphocytes (%) (Auto) 28, Monocytes (%) (Auto) 18H, Eosinophils (%) (Auto) 4, Basophils (%) (Auto) 1, Neutrophils # (Auto) 3.0, Lymphocytes # (Auto) 1.7, Monocytes # (Auto) 1.1H, Eosinophils # (Auto) 0.2, Basophils # (Auto) 0.0, Immature Granulocyte # (Auto) 0.0, Prothrombin Time 34.9H, INR Comment 3.4H, Sodium Level 142, Potassium Level 3.2L, Chloride Level 102, Carbon Dioxide Level 25, Anion Gap 15H, Blood Urea Nitrogen 12, Creatinine 0.86, Estimat Glomerular Filtration Rate > 60, BUN/Creatinine Ratio 14, Glucose Level 96, Calcium Level 8.0L, Phosphorus Level 2.4, Magnesium Level 1.7 Assessment/Plan Assessment/Plan Assessment/Plan Fall Scalp Laceration Supratherapeutic INR HTN Hx Afib Hypothyroidism Admit patient to ICU for observation 1 unit FFP transfused yesterday. INR down to 3.4 from 6.3 Bolus of tranexamic acid in ED given Plan to repeat Head CT today Neuro checks, can discontinue Vitals per ICU protocol Consult pulm/critical care Consult medicine service MICHAEL ACUNA DO 10/07/20 1422: Subjective Subjective/Events-last exam Patient states she is doing well. She feels better today. She has a little headache. She has had no neurological changes. Patient repeat CT head with no acute traumatic injury. Patient was discussed possible placement to increase strength and help care for herself. Patient is completely alert and oriented and states she does not want to consider this at this time. Objective Exam General Appearance: No Apparent Distress, WD/WN HEENT: PERRL/EOMI, Pharynx Normal, Other (left forehead hematoma/laceration repaired) Neck: Full Range of Motion, Non Tender Respiratory: Chest Non Tender, No Accessory Muscle Use, No Respiratory Distress Cardiovascular: Regular Rate, Rhythm, No JVD, Other (patient has pacemaker) Gastrointestinal: normal bowel sounds, non tender, soft Extremity: Normal Capillary Refill, Non Tender, No Calf Tenderness, Swelling (right lower extremity mildly swollen) Neurologic/Psychiatric: Alert, Oriented x3, No Motor/Sensory Deficits, Normal Mood/Affect Skin: Warm/Dry, Ecchymosis (Ecchymosis superior and lateral to left orbit. Bilat lower abd bruising noted as well) Lymphatic: No Adenopathy Assessment/Plan Assessment/Plan Assessment/Plan Fall Scalp Laceration Supratherapeutic INR HTN Hx Afib Hypothyroidism Patient had 1 unit FFP transfused yesterday. INR down to 3.4 from 6.3. She sees Dr. Dixon and does have this adjusted last week she will continue to follow-up with Dr. Dixon in the next week for monitoring and adjusting her Coumadin. Bolus of tranexamic acid in ED given yesterday. CT head no acute traumatic injury. Neuro checks, can discontinue Discussed with Dr. Mason and from medical standpoint okay to MI home. Patient was discussed placement at short-term to help improve strength and help care for herself which she declines at this time. Patient will follow up with myself to remove sutures and jose f approximately 1-1/2 weeks. Final Diagnosis Fall Scalp Laceration Supratherapeutic INR HTN Hx Afib Hypothyroidism Supervisory-Addendum Brief Verification & Attestation Participated in pt care: history, MDM, physical Personally performed: exam, history, MDM, supervision of care Care discussed with: Medical Student Procedures: n/a Results interpretation: Verified all documentation Verification and Attestation of Medical Student E/M Service A medical student performed and documented this service in my presence. I reviewed and verified all information documented by the medical student and made modifications to such information, when appropriate. I personally performed the physical exam and medical decision making. Michael Acuna, Oct 07, 2020,14:22 CAMI GARCIA MED STUDENT Oct 07, 2020 07:02 MICHAEL ACUNA DO Oct 07, 2020 14:22
--- NOTE | 2020-10-07 07:48 | Diagnostic Imaging Report ---
EXAMINATION: Chest 1 view HISTORY: Shortness of breath. Follow-up. COMPARISON: 10/06/2020. FINDINGS: Stable cardiomegaly with central pulmonary vascular congestion. The left pectoral pacemaker and loop recorder are stable in configuration. No new focal consolidations. No large pleural effusion or pneumothorax. IMPRESSION: 1. Stable cardiomegaly with central pulmonary vascular congestion. Dictated by: Dictated on workstation # [id number]
[2020-10-07] MEDS: CARVEDILOL 12.5 MG (COREG) TABLET PO SCH (07:52)
[2020-10-07] MEDS ORDERED: POTASSIUM PHOSPHATE INJ 30 MM in NS (IVPB) 250 ML IV ONE (08:00)
[2020-10-07] MEDS ORDERED: KCL 20 MEQ TAB (K-DUR) PO ONE ×2 (08:00→10:00)
--- NOTE | 2020-10-07 10:58 | Diagnostic Imaging Report ---
EXAMINATION: CT head without contrast. TECHNIQUE: Multiple contiguous axial images were obtained through the brain without the use of intravenous contrast. All CT scans use one or more of the following dose optimizing techniques: automated exposure control, MA and/or KvP adjustment based on a patient size and exam type, or iterative reconstruction. HISTORY: Hit head yesterday. Scalp contusion. On blood thinners. Follow-up. COMPARISON: 10/06/2020. FINDINGS: No large acute territorial ischemia, mass, or hemorrhage. No midline shift or mass effect. Decreased attenuation is seen in the periventricular and subcortical white matter. The ventricles and cortical sulci are prominent, with the prominence of the ventricles again noted to be out of proportion to the cortical sulci prominence. The basilar cisterns are patent and unremarkable. The orbits are normal. Paranasal sinuses are normal. Mastoid air cells are clear. Scalp contusion again noted overlying the left forehead. No osseous lesions or fractures are seen. IMPRESSION: 1. No large acute territorial ischemia, mass, or hemorrhage. 2. Chronic microvascular disease. 3. Generalized parenchymal volume loss. Note is again made of the ventricle prominence out of proportion to the sulcal prominence, which can be seen with normal pressure hydrocephalus. Dictated by: Dictated on workstation # [id number]
--- NOTE | 2020-10-07 12:04 | Consultation - Hospitalist ---
HPI History of Present Illness: HPI/Chief Complaint Corina Baker is an 79-year-old female with hypertension, hypothyroidism, atrial fibrillation on Coumadin, who presented after a fall at home. She reports that she tripped over a rug and fell and hit her head on a doorway. She had a large laceration above her left eye and was bleeding diffusely. Her partner was at home and he provided aid and called the ambulance. She is feeling better today. She denies any fevers or chills. She denies any chest pain or palpitations. She denies any shortness of breath or cough. She denies any abdominal pain, nausea, vomiting, or diarrhea. She denies any dysuria or urinary frequency. Source: patient Exam Limitations: no limitations Date Seen 10/07/20 Attending Physician Marin Joel DO PCP Osman Prather MD Referring Physician Date of Admission Oct 06, 2020 at 11:11 Home Medications & Allergies Home Medications Reviewed patient Home Medication Reconciliation performed by pharmacy medication reconciliations can technician and/or nursing. Patients Allergies have been reviewed. Allergies Allergies Coded Allergies Penicillins (Verified Allergy, Unknown, 11/07/18) pineapple (Verified Allergy, Unknown, 11/09/18) Past Zhdzfgr-Nkszvt-Ezcecc Hx Past Med/Social Hx: Reviewed Nursing Past Med/Soc Hx Patient Social History Alcohol Use: Denies Use Recreational Drug Use: No Smoking Status: Never a Smoker Physical Abuse Screen: No Recent Foreign Travel: No Contact w/other who traveled: No Recent Hopitalizations: Yes (patient states she was just discharged last tuesday from hospital) Recent Infectious Disease Expo: No Immunizations Up To Date Tetanus Booster (TDap): Unknown Pediatric: No Date of Pneumonia Vaccine: Apr 12, 2018 Date of Influenza Vaccine: Apr 08, 2020 Seasonal Allergies Seasonal Allergies: Yes Past Medical History Surgeries: Coronary Stent, Pacemaker Cardiac: Atrial Fibrillation, High Cholesterol, Hypertension : No Reproductive: No Sexually Transmitted Disease: No HIV/AIDS: No Female Reproductive Disorders: Denies Endocrine: Hypothyroidsim HEENT: Cataract Hearing Impairment: Hard of Hearing, Hearing Aide Right, Hearing Aide Left History of Blood Disorders: No Adverse Reaction to Blood Rogers: No Family History Patient reports no known family medical history. No Pertinent Family Hx Review of Systems Constitutional: weakness EENTM: no symptoms reported Respiratory: no symptoms reported Cardiovascular: no symptoms reported Gastrointestinal: no symptoms reported Genitourinary: no symptoms reported Musculoskeletal: joint pain Skin: no symptoms reported Psychiatric/Neurological: No Symptoms Reported Physical Exam Physical Exam Vital Signs Vital Signs - First Documented 10/06/20 10/06/20 08:40 12:06 Temp 37.3 Pulse 81 Resp 18 B/P (MAP) 207/98 (134) Pulse Ox 95 O2 Delivery Room Air Capillary Refill : Less Than 3 Seconds Height, Weight, BMI Height: 5'9.00" Weight: 171lbs. 9.0oz. 77.291082oz; 25.02 BMI Method:Stated General Appearance: No Apparent Distress, WD/WN Eyes: Left Eye Normal Inspection (small contusion superior and lateral to left orbit); Bilateral Eye PERRL, Bilateral Eye EOMI HEENT: PERRL/EOMI, Pharynx Normal, Other (left forehead hematoma/laceration repaired) Neck: Normal Inspection, Supple Respiratory: Lungs Clear, Normal Breath Sounds, No Respiratory Distress Cardiovascular: Regular Rate, Rhythm, No Edema, No Murmur Gastrointestinal: Normal Bowel Sounds, Non Tender, Soft Extremity: Normal Inspection, Non Tender, Pedal Edema Neurologic/Psychiatric: Alert, Oriented x3, No Motor/Sensory Deficits, Normal Mood/Affect Skin: Warm/Dry, Ecchymosis (left sided scalp laceration above left eye with bandage in place) Results Results/Procedures Labs Laboratory Tests 10/06/20 09:53 10/07/20 03:25 Patient resulted labs reviewed. Imaging: Reviewed Imaging Report Assessment/Plan Assessment and Plan Assess & Plan/Chief Complaint Ground level fall Scalp laceration Supratherapeutic INR AFib on coumadin CT head without acute bleeding INR >6 on arrival Given 1 unit FFP INR 3.[address] head pending Consider decreasing coumadin dose Follow up INR with Dr. Dixon as outpatient Recent inpatient rehab stay following prolonged admission Already set up with home health Patient does not want to go to a facility Resume home health care on discharge HTN Hypothyroidism Continue home meds Diagnosis/Problems Diagnosis/Problems (1) Fall on same level Status: Acute Qualifiers: Encounter type: initial encounter Qualified Codes: W18.30XA - Fall on same level, unspecified, initial encounter (2) Supratherapeutic INR Status: Acute (3) Facial laceration Status: Acute Qualifiers: Encounter type: initial encounter Qualified Codes: S01.81XA - Laceration without foreign body of other part of head, initial encounter (4) On Coumadin for atrial fibrillation Status: Chronic NOE MARQUEZ MD Oct 07, 2020 12:04
--- NOTE | 2020-10-07 12:29 | Discharge Inst-Simple/Standard ---
Discharge Inst-Standard Patient Instructions/Follow Up Plan of Care/Instructions/FU: Dr. Dixon in [address] Joel in 7-10 days. Your primary care physician in 1-2 weeks. Activity as Tolerated: No Discharge Diet: Regular Diet Other Inst to Patient Follow up Appt: Dr. Dixon in [address] Joel in 7-10 days. Your primary care physician in 1-2 weeks. Instructions: No strenuous activity. May shower or tub bath keep laceration of forehead clean and dry. Use incentive spirometer at home as directed. No Smoking Skin/Wound Care: Keep area clean and dry. Symptoms to Report: Appetite Changes, Extremity Discoloration, Numbness/Tingling, Swelling Increased, Bleeding Excessive, Eyesight Changes, Pain Increased, Urine Color Change, Constipation(Persistent), Fever over 101 degree F, Pain/Pressure in chest, Urinating Difficulty, Cough Up/Vomit Blood, Heart Beat Irreg/Pounding, Pain/Pressure in jaw, Vaginal Bleeding Increase, Cramps in feet or legs, Lightheadedness, Pain/Pressure in shoulder, Diarrhea(Persistent), Memory Changes Suddenly, Questions/Concerns, Weight gain consecutive days, Dizziness/Fainting, Nausea/Vomiting, Shortness of Breath, Weight gain over 2 pounds If questions or concerns contact your physician Or seek help at emergency department. MICHAEL JOEL DO Oct 07, 2020 12:29
== END 2020-10-07 15:36 | disposition home or self-care (01) ==
LOC: EDUNIT# 08:38 → ER 08:40 → UNDOADMOB 11:11 → ICU 11:11 → UNDODISOB 10-07 15:13
PROVIDERS: ADMIT Surgery; ATTEND Surgery
DX: S01.81XA Laceration without foreign body of other part of head, initial encounter (principal); I48.91 Unspecified atrial fibrillation; Z95.0 Presence of cardiac pacemaker; I10 Essential (primary) hypertension; E87.6 Hypokalemia; E78.00 Pure hypercholesterolemia, unspecified; E03.9 Hypothyroidism, unspecified; I25.10 Atherosclerotic heart disease of native coronary artery without angina pectoris; I35.0 Nonrheumatic aortic (valve) stenosis; Z79.82 Long term (current) use of aspirin; Z79.899 Other long term (current) drug therapy; Z79.51 Long term (current) use of inhaled steroids; Z88.0 Allergy status to penicillin; Z91.018 Allergy to other foods; Z95.5 Presence of coronary angioplasty implant and graft; W19.XXXA Unspecified fall, initial encounter
CPT/HCPCS: 12013; 36410; 36430; 70450 ×2; 70486; 71045 ×2; 72125; 73080; 76937; 80048; 80053; 81000; 82962 ×2; 83735 ×2; 84100; 84439; 84443; 85025 ×2; 85610 ×2; 86900; 86901; 87077; 87088; 87186; 90471; 96365; 96375; 99285; C1751; G0378; P9017; 36415; 90715

== ENCOUNTER → 2020-10-16 | Outpatient (CLI) | payer MEDICARE ==
[~2020-10-16] MED LIST changes: +RT-ALBUINH INH
--- NOTE | 2020-10-16 14:01 | Diagnostic Imaging Report ---
PROCEDURE: CT abdomen and pelvis without contrast. TECHNIQUE: Multiple contiguous axial images were obtained through the abdomen and pelvis without the use of intravenous contrast. Auto Exposure Controls were utilized during the CT exam to meet ALARA standards for radiation dose reduction. INDICATION: Right ureteral obstruction. COMPARISON: Comparison is made with prior CT from 09/16/2020. FINDINGS: The heart is enlarged. There is a small pericardial effusion. Previously noted bilateral pleural effusions have now resolved. Lungs are clear apart from minimal linear atelectasis or scarring in the right middle lobe. The liver and gallbladder are unremarkable. There is no biliary ductal dilatation. Pancreas and spleen are unremarkable. No adrenal mass is identified. A right-sided double-J nephroureteral stent has been removed. No hydroureteronephrosis is seen. No definite renal or ureteral calculi are identified. Aorta is heavily calcified but nonaneurysmal. Bowel loops appear to be nonobstructed. There is no free fluid identified. There is some diverticulosis of the sigmoid but no acute diverticulitis. Bladder is unremarkable. IMPRESSION: 1. Resolution of previously noted bilateral pleural effusions when compared with 09/16/2020. Patient does have a small pericardial effusion. 2. Removal of right-sided double-J nephroureteral stent. No ureteral calculi or residual hydroureteronephrosis is detected. Dictated by: Dictated on workstation # [id number]
== END ==
LOC: RAD 08:44
PROVIDERS: ATTEND Urology
DX: N13.5 Crossing vessel and stricture of ureter without hydronephrosis (principal)
CPT/HCPCS: 74176

== ENCOUNTER → 2020-11-05 | Outpatient (CLI) | payer MEDICARE ==
--- NOTE | 2020-11-05 12:10 | Diagnostic Imaging Report ---
PROCEDURE: US right lower extremity venous. TECHNIQUE: Multiple Real-time grayscale images were obtained over the right lower extremity in various projections. Additional spectral analysis and color Doppler duplex images were also obtained. INDICATION: Right leg pain. FINDINGS: The right common femoral, superficial femoral, and popliteal veins are widely patent without evidence of thrombus. There does appear to be thrombus within the calf veins. There is also a popliteal fossa complex cyst measuring 4.2 x 0.9 to 0.9 cm. No other abnormalities are seen. IMPRESSION: No evidence of right lower extremity femoral-popliteal DVT; however, there is thrombus noted within several calf veins. Note is also made of a complex Galarza's cyst. Dictated by: Dictated on workstation # [id number]
== END ==
LOC: RAD 10:54
PROVIDERS: ATTEND Internal Medicine
DX: I82.461 Acute embolism and thrombosis of right calf muscular vein (principal); M71.21 Synovial cyst of popliteal space [Baker], right knee; R22.43 Localized swelling, mass and lump, lower limb, bilateral

== ENCOUNTER → 2021-01-27 | Outpatient (CLI) | payer MEDICARE | LOC: CARD 13:36 | PROVIDERS: ATTEND Physician Assistant | DX: I11.9 Hypertensive heart disease without heart failure (principal); I34.8 Other nonrheumatic mitral valve disorders; Z95.2 Presence of prosthetic heart valve | CPT/HCPCS: 93306 ==

== ENCOUNTER 2021-06-15 05:38 | Outpatient (RCR) | payer MEDICARE ==
[2021-06-08 11:42] VITALS: BP 173/85
[2021-06-08 12:25] LABS: BASOPHILS # (AUTO) 0.1 10^3/uL (0.0-0.1); BASOPHILS % (AUTO) 1 % (0-10); EOSINOPHILS # (AUTO) 0.2 10^3/uL (0.0-0.3); EOSINOPHILS % (AUTO) 2 % (0-10); HEMATOCRIT 42 % (35-52); HEMOGLOBIN 13.4 g/dL (11.5-16.0); LYMPHOCYTES # (AUTO) 1.7 10^3/uL (1.0-4.0); LYMPHOCYTES % (AUTO) 18 % (12-44); MEAN CORPUSCULAR HEMOGLOBIN 30 pg (25-34); MEAN CORPUSCULAR HGB CONC 32 g/dL (32-36); MEAN CORPUSCULAR VOLUME 93 fL (80-99); MEAN PLATELET VOLUME 9.7 fL (9.0-12.2); MONOCYTES # (AUTO) 0.9 10^3/uL (0.0-1.0); MONOCYTES % (AUTO) 10 % (0-12); NEUTROPHILS # (AUTO) 6.3 10^3/uL (1.8-7.8); NEUTROPHILS % (AUTO) 69 % (42-75); PLATELET COUNT 286 10^3/uL (130-400); WHITE BLOOD COUNT 9.1 10^3/uL (4.3-11.0)
[2021-06-08 12:37] LABS: INR 2.2 (0.8-1.4); PROTHROMBIN TIME PATIENT 24.9 SEC (12.2-14.7)
[2021-06-08 12:44] LABS: BILIRUBIN,URINE NEGATIVE (NEGATIVE); CLARITY,URINE CLEAR; COLOR,URINE YELLOW; GLUCOSE, URINE (UA) NEGATIVE (NEGATIVE); KETONES,URINE NEGATIVE (NEGATIVE); NITRITE,URINE NEGATIVE (NEGATIVE); PROTEIN,URINE NEGATIVE (NEGATIVE)
[2021-06-08 12:45] LABS: BACTERIA,URINE FEW /HPF; LEUKOCYTE ESTERASE ,URINE TRACE (NEGATIVE); RENAL EPITHELIAL CELLS,URINE 0-2 /HPF; WBC,URINE RARE /HPF
[2021-06-08 12:45] LABS: ALANINE AMINOTRANSFERASE 17 U/L (0-55); ALBUMIN 4.6 GM/DL (3.2-4.5); ALKALINE PHOSPHATASE 109 U/L (40-136); BILIRUBIN,TOTAL 0.7 MG/DL (0.1-1.0); BUN/CREATININE RATIO 17; CALCIUM 9.6 MG/DL (8.5-10.1); CARBON DIOXIDE 26 MMOL/L (21-32); CHLORIDE 103 MMOL/L (98-107); CREATININE SERUM 0.95 MG/DL (0.60-1.30); GFR ESTIMATED 56; GLUCOSE 89 MG/DL (70-105); POTASSIUM 3.9 MMOL/L (3.6-5.0); SODIUM 142 MMOL/L (135-145); TOTAL PROTEIN 8.2 GM/DL (6.4-8.2)
--- NOTE | 2021-06-08 12:52 | Diagnostic Imaging Report ---
INDICATION: Preoperative knee replacement surgery COMPARISON: 11/01/2013 FINDINGS: Frontal and lateral views of the chest demonstrates stable cardiac enlargement. There is a TAVR cardiac valve present. There is a external loop recorder and cardiac pacemaker. The lungs are clear. There is no pneumothorax. Osseous structures are stable. Chronically healed right shoulder fracture is present. IMPRESSION: Cardiac enlargement without pulmonary edema or acute infiltrate. Dictated by: Dictated on workstation # [id number]
[2021-06-08 13:01] LABS: ERYTHROCYTE SEDIMENTATION RATE 12 MM/HR (0-30)
[~2021-06-15] VITALS: Ht 175 cm; Wt 77.9 kg
[~2021-06-15 05:38] MED LIST changes: +CALC1TAB84 PO; +RIVA20TA PO
== END 2021-06-15 09:23 | disposition home or self-care (01) ==
LOC: PREOP 05:38
PROVIDERS: ATTEND Orthopaedic Surgery
DX: Z01.818 Encounter for other preprocedural examination (principal); I51.7 Cardiomegaly; Z11.2 Encounter for screening for other bacterial diseases; Z20.822 Contact with and (suspected) exposure to COVID-19
CPT/HCPCS: 36415; 71046; 80053; 81000; 85025; 85610; 85652; 86850; 86900; 86901; 87081; 87635

== ENCOUNTER 2021-06-17 06:00 | Inpatient (IN) | payer MEDICARE ==
[2021-06-17] VITALS (11 sets, daily range): BP systolic 131–184; BP diastolic 64–89
[~2021-06-17] VITALS: Ht 175 cm; Wt 77.9 kg
[2021-06-17] MEDS ORDERED: fentaNYL INJ 100 MCG/2 ML AMP ONE (06:46)
[2021-06-17] MEDS: LACTATED RINGERS 1,000 ML IV PRN ×3 (06:46→08:30)
[2021-06-17] MEDS ORDERED: MIDAZOLAM 2 MG/2 ML (VERSED) VIAL ONE (06:46)
[2021-06-17] MEDS ORDERED: ONDANSETRON 4 MG/2 ML (SDV) Z0FRAN ONE (06:46)
[2021-06-17] MEDS ORDERED: proPOfol 200 MG/20 ML (DIPRIVAN) VIAL IV ONE (06:46)
[2021-06-17] MEDS ORDERED: LIDOCAINE PF 2% 5 ML (XYLOCAINE) VIAL ONE (06:46)
[2021-06-17] MEDS ORDERED: TRANEXAMIC ACID 100 MG/ML 10 ML INJECTION ONE (06:46)
[2021-06-17] MEDS ORDERED: CEFUROXIME 1.5 GM/15 ML (ZINACEF) VIAL ONE (07:29)
[2021-06-17] MEDS ORDERED: diphenhydrAMINE 50 MG/ML INJ (BENADRYL) IVP PRN (07:30)
[2021-06-17] MEDS ORDERED: WATER (STERILE) FOR INJECTION 20 ML ONE (07:30)
[2021-06-17] MEDS ORDERED: NALOXONE 0.4 MG/ML 1 ML (NARCAN) VIAL IV PRN (07:30)
[2021-06-17] MEDS ORDERED: morphine PCA 100 MG/100 ML BAG IV PRN (07:30)
[2021-06-17] MEDS ORDERED: CEFUROXIME INJECTION 1,500 MG in WATER (STERILE) FOR INJECTION 15 ML IV ONE (07:30)
--- NOTE | 2021-06-17 07:33 | Progress Note-Post Operative ---
Post-Operative Progess Note Surgeon (s)/Pullman Car Repairer (s) Surgeon ZO NEGRETE MD Pullman Car Repairer: Ej De La Cruz Pre-Operative Diagnosis right knee primary osteoarthritis Post-Operative Diagnosis right knee primary osteoarthritis Procedure & Operative Findings Date of Procedure 06/17/21 Procedure Performed/Findings right total knee arthroplasty Anesthesia Type spinal Estimated Blood Loss Estimated blood loss (mL): minimal Specimens/Packing Specimens Removed none Packing: none ZO NEGRETE MD Jun 17, 2021 07:33
--- NOTE | 2021-06-17 07:33 | Progress Note-Pre Operative ---
Pre-Operative Progress Note H&P Reviewed The H&P was reviewed, patient examined and no changes noted. Date Seen by Provider: Jun 17, 2021 Time Seen by Provider: 07:18 Date H&P Reviewed: Jun 17, 2021 Time H&P Reviewed: 07:11 Pre-Operative Diagnosis: right knee primary osteoarthritis ZO NEGRETE MD Jun 17, 2021 07:33
--- NOTE | 2021-06-17 07:36 | D/C HH Face to Face Order ---
D/C Face to Face Orders Reconcile Patient Problems Problems Reviewed?: Yes Instructions for Patient Via [employer], Patient Instructions/FollowUp: three weeks Physician to follow Patient: three weeks Discharge Diet for Home: Regular Diet Patient Data-Allergies,Ht & Wt Patient Allergies: Coded Allergies: Penicillins (Verified Allergy, Unknown, 11/07/18) pineapple (Verified Allergy, Unknown, 11/09/18) Height (Feet): 5 Height (Inches): 9.00 Weight (Pounds): 171 Weight (Ounces): 9.0 Home Health Need/Face to Face Date of Face to Face: Jun 17, 2021 Clinical Findings: Muscle weakness, Pain with ambulation, Unsteady gait I have seen Pt [id number]: Yes Discharged To: Home Diagnosis/Conditions: right total knee arthroplasty Patient is Homebound due to: [place] fall risk due to instabilty, Muscle weakness, Pain w/ambulation Homebound Status Due to the above stated illness, injury or surgical procedure (medical condition or diagnosis) and associated clinical findings, the patient is homebound because of his/her inability to leave home except with aid of a supportive device and/or person AND leaving the home requires a considerable and taxing effort or is medically contraindicated. Pt req the following assistanc: [facility] Nursing Orders Home Health Services Order: Physical Therapy-Evaluate & Treat DC right knee jose f and apply steri strips 07/01/21 Home Health Infusion Therapy Line Start Date: Jun 17, 2021 Therapy Orders Therapy Orders: Physical Therapy, PT to assess for OT Therapy Specific Orders: Eval assistive deivces, Teach enviro modifications/safety, Gait training, Increase strength/endurance, Provider maintenance therapy, Restore ROM Certify Stmt I certify that this patient is under my care and that I, a nurse practitioner or a physician; a operations administrative assistant working with me, had a face to face encounter that - meets the physician face to face encounter requirements with this patient as dated. ZO NEGRETE MD Jun 17, 2021 07:35
[2021-06-17] MEDS ORDERED: INTRA-ARTICULAR IU ONE ×5 (08:00)
[2021-06-17] MEDS ORDERED: ROPIVACAINE 5MG/ML 30ML VIAL ONE (08:26)
[2021-06-17] MEDS ORDERED: PROPOFOL INJECTION 50 ML IV ONE (09:31)
--- NOTE | 2021-06-17 09:58 | Diagnostic Imaging Report ---
Indication: Right knee arthroplasty 2 views the right knee shows postoperative changes of total joint arthroplasty. There is satisfactory alignment. No fracture seen. There is no unsuspected foreign body. IMPRESSION: Satisfactory post right knee arthroplasty. Dictated by: Dictated on workstation # [id number]
--- NOTE | 2021-06-17 11:14 | Progress Note ---
Standard Progress Note Progress Notes/Assess & Plan Date Seen by a Provider: Jun 17, 2021 Time Seen by a Provider: 09:10 Progress/Assessment & Plan post op check spinal still in effect radiographs--HW well positioned without fracture RLE--2 plus DP pulse with brisk cap refill s/p RTKA mobilize as able ZO NEGRETE MD Jun 17, 2021 11:13
[2021-06-17] MEDS: SENNA W/DOCUSATE (SENOKOT S) TABLET PO SCH ×2 (11:39→20:45)
[2021-06-17] MEDS: oxyCODONE/APAP 5/325MG (PERCOCET 5) TABLET PO PRN ×3 (11:39→19:23)
--- NOTE | 2021-06-17 11:48 | Consultation - Hospitalist ---
HPI History of Present Illness: HPI/Chief Complaint Patient is an 80-year-old female with past medical history of atrial fibrillation, aortic valve replacement, hypertension, hyperlipidemia, hypothyroi dism who was admitted to the orthopedic surgery service due to osteoarthritis and elective TKA. She is just returned from surgery and states that she is feeling well. She denies any pain. 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 She has no other complaints and is just curious about restarting her home medications. Source: patient Date Seen 06/17/21 Attending Physician Niko Barton MD PCP Osman Prather MD Referring Physician Date of Admission Jun 17, 2021 at 06:00 Home Medications & Allergies Home Medications Reviewed patient Home Medication Reconciliation performed by pharmacy medication reconciliations validation technician and/or nursing. Patients Allergies have been reviewed. Allergies Allergies Coded Allergies Penicillins (Verified Allergy, Unknown, 06/17/21) pineapple (Verified Allergy, Unknown, 06/17/21) Past Vgudvdx-Mgbpxz-Tqgqyw Hx Patient Social History Marrital Status: Employed/Student: retired Tobacco Use?: No Smoking Status: Never a Smoker Smokeless Tobacco Frequency: Never a User Substance use?: No Alcohol Use?: No Pt feels they are or have been: No Immunizations Up To Date Date of Influenza Vaccine: Apr 08, 2020 First/Initial COVID19 Vaccinat: october 2020 Second COVID19 Vaccination Darryl: november 2020 Tetanus Booster (TDap): Unknown Hepatitis A: No Hepatitis B: No PED Vaccines UTD: No Date of Pneumonia Vaccine: Apr 12, 2018 Seasonal Allergies Seasonal Allergies: Yes Current Status status: No status: No Communicates: Verbally Primary Language: Spanish Preferred Spoken Language: Spanish Is interpretation needed?: No Sensory deficits: Hearing impairment Implanted or Applied Medical D: Pacemaker, Stents Past Medical History Surgeries: Coronary Stent, Hysterectomy, Pacemaker Tuberculosis Currently Using CPAP: No Currently Using BIPAP: No Atrial Fibrillation, High Cholesterol, Hypertension 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 No Pertinent Family Hx Review of Systems Constitutional: No chills, No fever EENTM: no symptoms reported Respiratory: No cough, No short of breath Cardiovascular: No chest pain, No palpitations Gastrointestinal: no symptoms reported Genitourinary: no symptoms reported Musculoskeletal: joint pain Skin: no symptoms reported Psychiatric/Neurological: No Symptoms Reported Physical Exam Physical Exam Vital Signs Vital Signs - First Documented 06/17/21 06:25 Temp 37.1 Pulse 83 Resp 18 B/P (MAP) 166/84 (111) Pulse Ox 96 O2 Delivery Room Air Capillary Refill : Less Than 3 Seconds Height, Weight, BMI Height: 5'9.00" Weight: 171lbs. 9.0oz. [id number]; 25.43 BMI Method:Stated General Appearance: No Apparent Distress, WD/WN HEENT: PERRL/EOMI, Moist Mucous Membranes; No Scleral Icterus (L), No Scleral Icterus (R) Neck: Normal Inspection, Supple Respiratory: Lungs Clear, No Accessory Muscle Use, No Respiratory Distress Cardiovascular: Regular Rate, Rhythm, Systolic Murmur Gastrointestinal: Normal Bowel Sounds, Non Tender, Soft Extremity: Other (in surgical dressing) Neurologic/Psychiatric: Alert, Oriented x3 Results Results/Procedures Labs Patient resulted labs reviewed. Imaging: Reviewed Imaging Report Imaging [facility], [place] NAME: JAZMÍN GRIDER MED REC#: [id number] PT STATUS: ADM IN : 1940 PHYSICIAN: ANABELLA SULLIVAN ADMIT DATE: 06/17/21/SURG Signed Date of Exam:06/17/21 KNEE, RIGHT, 2 VIEWS Indication: Right knee arthroplasty 2 views the right knee shows postoperative changes of total joint arthroplasty. There is satisfactory alignment. No fracture seen. There is no unsuspected foreign body. IMPRESSION: Satisfactory post right knee arthroplasty. Dictated by: Dictated on workstation # [id number] Dict: 06/17/21 0954 Trans: 06/17/21 1009 BANNER [id number] Interpreted by: TAHIR CUMMINGS MD Electronically signed by: TAHIR CUMMINGS MD 06/17/21 1009 Assessment/Plan Assessment and Plan Assess & Plan/Chief Complaint Right knee osteoarthritis s/p TKA [facility] getting set up- continue pain regimen Bowel regimen Management per primary PT/OT A-fib HTN HLD Resume home meds when med rec available WIll resume Xarelto tomorrow Hypothyroidism Continue home synthroid DVT ppx: Lovenox today and Xarelto to start tomorrow LEONEL TUTTLE MD Jun 17, 2021 11:48
[2021-06-17] MEDS: NS IV 1000 ML 1,000 ML IV SCH ×2 (11:55→19:37)
--- NOTE | 2021-06-17 13:59 | Physical Therapy Evaluation ---
PT Evaluation-General Medical Diagnosis Admission Date Jun 17, 2021 at 06:00 Medical Diagnosis: Right TKA Onset Date: Jun 17, 2021 Therapy Diagnosis Therapy Diagnosis: Gait deficit, strength deficit Height/Weight Height (Feet): 5 Height (Inches): 9.00 Weight (Pounds): 171 Weight (Ounces): 9.0 Precautions Precautions/Isolations: Fall Prevention Weight Bear Status Right Lower Extremity: Right Weight Bearing/Tolerated Referral Physician: Dr. Barton Reason for Referral: Evaluation/Treatment Medical History Pertinent Medical History: Atrial Fib, HTN Reviewed History: Yes Social History Home: Single Level Current Living Status: Spouse Entry Into Home: Stairs With Railing PT Steps Into Home: 2 Prior Prior Level of Function SCALE: Activities may be completed with or without assistive devices. 4-Zkfbedhheo-zfjwoef completes the activity by him/herself with no assistance from a helper. 5-Set-up or Clean-up Assistance-helper sets up or cleans up; patient completes activity. [place] assists only prior to or following the activity. 4-Supervision or Touching Assistance-helper provides verbal cues and/or touc emiliano/steadying and/or contact guard assistance as patient completes activity. Assistance may be provided throughout the activity or intermittently. 3-Partial/Moderate Assistance-helper does LESS THAN HALF the effort. [place] lifts, holds or supports trunk or limbs, but provides less than half the effort. 2-Substantial/Maximal Assistance-helper does MORE THAN HALF the effort. [place] lifts or holds trunk or limbs and provides more than half the effort. 2-Luftdznyz-lpecwt does ALL the effort. Patient does none of the effort to complete the activity. Or, the assistance of 2 or more helpers is required for the patient to complete the activity. If activity was not attempted, code reason: 7-Patient Refused. 9-Not Applicable-not attempted and the patient did not perform the activity before the current illness, exacerbation or injury. 10-Not Attempted due to Environmental Limitations-(lack of equipment, weather restraints, etc.). 88-Not Attempted due to Medical Conditions or Safety Concerns. Bed Mobility: 6 Transfers (B,C,W/C): 6 Gait: 6 Stairs: 6 Indoor Mobility (Ambulation): Independent Stairs: Independent Prior Devices Use: Walker Prior Device Use: FWW PT Evaluation-Current Subjective Patient lying supine in bed upon PT arrival, agreeable to treatment but very hesitant to movement due to right knee pain. Patient rates pain at 8/10 in right knee Objective Patient Orientation: Person, Place, Time, Situation Attachments: Miles Catheter, IV ROM/Strength ROM Lower Extremities Right knee AROM Flexion to 40 degrees, extension lacks 10 degrees Strength Lower Extremities Right knee N/A due to surgery. Left LE 3+/5 grossly Sensory Vision: Functional Hearing: Impaired Sensation Right Lower Extremit: Intact Sensation Left Lower Extremity: Intact Transfers Roll Left to Right (QC): 3 Sit to Lying (QC): 3 Lying to Sitting/Side of Bed(Q: 3 Sit to Stand (QC): 3 Chair/Roz-lq-Avemk Xfer(QC): 3 Gait Does the Patient Walk?: Yes Mode of Locomotion: Walk Anticipated Mode of Locomotion: Walk Walk 10 feet (QC): 88 Distance: 5 ft Gait Assistive Device: FWW Balance Sitting Static: Poor Sitting Dynamic: Poor Standing Static: Poor Standing Dynamic: Poor Special Test Comments Patient tends to lean retropulsively after transferring to a comfortable position while sitting on the edge of the bed. Patient reports she has "fallen a lot lately" and "tends to lean backwards even when I'm sitting." Assessment/Needs Patient lying supine in bed upon PT arrival, reports right knee is very sore and she yells/jumps with each movement of the right LE until CPM has gone through 10+ cycles. Patient CPM set at 0-50 degrees flexion as that is all the patient can tolerate at this time. Patient was educated that the CPM would be increased each session. Patient performs all observed bed mobility and transfers with min/mod A. Initially upon standing, she lets go of the FWW with her left hand and sits on the bed quickly without warning. She was educated that this was not safe and she replied "Well when you feel like you have to pee, you need to sit down." Patient has Purewick and was educated on its placement. Patient ambulates 5 feet with FWW, with mod A and verbal cues for stepping, use of the FWW and use of UEs to progress left LE forwards. Patient tends to turn the FWW without turning her body and initially puts her body perpendicular to the FWW. Patient educated on proper use of the FWW. Patient in chair post treatment with all needs met, nursing notified, call light in hand. Rehab Potential: Good PT Short Term Goals Short Term Goals Time Frame: Jun 24, 2021 Roll Left & Right: 4 Sit to lyin Lying to sitting on side of be: 4 Sit to stand: 4 Chair/wlx-hz-rezcl transfer: 4 Toilet transfer: 4 Car transfer: 4 Walk 10 feet: 4 Walk 50 feet with two turns: 4 Walk 150 feet: 4 1 step (curb): 3 4 steps: 3 PT Care Home Goals Care Home Goals PT Care Home Goals Time Frame: Jul 01, 2021 Roll Left & Right (QC): 5 Sit to Lying (QC): 5 Lying-Sitting on Side/Bed(QC): 5 Sit to Stand (QC): 5 Chair/Hyr-qb-Woagv Xfer(QC): 5 Toilet Transfer (QC): 5 Car Transfer (QC): 5 Does the Patient Walk: Yes Walk 10 feet (QC): 5 Walk 50ft with 2 Turns (QC): 5 Walk 150 ft (QC): 5 1 Step (curb) (QC): 4 4 Steps (QC): 4 12 Steps (QC): 4 PT Plan Problem List Problem List: Activity Tolerance, Functional Strength, Safety, Balance, Gait, Transfer, Bed Mobility, ROM Treatment/Plan Treatment Plan: Continue Plan of Care Treatment Plan: Bed Mobility, Education, Functional Activity Gilda, Functional Strength, Gait, Safety, Therapeutic Exercise, Transfers Treatment Duration: Aug 05, 2021 Frequency: 11 times per week Estimated Hrs Per Day: .25 hour per day Patient and/or Family Agrees t: Yes Safety Risks/Education Patient Education: Gait Training, Transfer Techniques, Reviewed Precautions Teaching Recipient: Patient Teaching Methods: Demonstration, Discussion Response to Teaching: Verbalize Understanding, Return Demonstration Discharge Recommendations Target Placement Post acute placement recommended. Time/GCodes Time In: 1310 Time Out: 1400 Total Billed Treatment Time: 50 Total Billed Treatment Visit, Derick mod, Gait, CPM, CPM pads JOAQUÍN BROOKS PT Jun 17, 2021 13:59
--- NOTE | 2021-06-17 14:12 | OPERATIVE REPORT ---
DATE OF SERVICE: 06/17/2021 PREOPERATIVE DIAGNOSIS: Right knee primary osteoarthritis. POSTOPERATIVE DIAGNOSIS: Right knee primary osteoarthritis. PROCEDURE: Right total knee arthroplasty. SURGEON: Niko Negrete MD CONTROL OPERATOR FLOW COAT: Ej Nelson, who assisted throughout the procedure and closed the incision. ANESTHESIA: Spinal by Berta Marmolejo CRNA. TOURNIQUET TIME: 60 minutes at 300 mmHg. ESTIMATED BLOOD LOSS: Minimal. DRAINS: None. COMPLICATIONS: None. POSTOPERATIVE PLAN: Routine protocol. MATERIALS: Microport cemented size 4 femur, cemented size 4 tibia with a 14 mm insert and cemented size 32 patellar button. STATEMENT OF MEDICAL NECESSITY: The patient is an 80-year-old female with long-standing progressive right knee pain. She had undergone treatment with injections, anti-inflammatories and rest without relief. Radiographs revealed severe medial and patellofemoral arthrosis. Due to functional impairment and failure to improve with conservative measures, the patient elected to proceed with surgical intervention. DESCRIPTION OF PROCEDURE: After risks and benefits of procedure were discussed and questions were answered, an informed consent was signed and placed on chart, the operative site was confirmed in the preoperative holding area initialed by the surgeon. The patient was then transferred to the operating room. After adequate levels of regional anesthetic were obtained, a timeout was called, confirming the operative site. Right lower extremity was prepped and draped in the usual sterile fashion with the leg elevated and the knee flexed, the tourniquet was inflated to 300 mmHg. Standard anterior approach was utilized. Hemostasis was obtained with cautery. A medial parapatellar arthrotomy was performed and a 1 cm cuff was left in the patella for later reattachment. A portion of the fat pad was resected. Subperiosteal release was performed on the proximal medial tibia being careful to stay on the bony surface. The ACL was resected. The intramedullary guide was passed into the tibia. The drop virgen transected the intermalleolar axis from the cutting block and the cut was made. The four baseplate was pinned into position. Again, the drop virgen transected the intermalleolar axis. This was prepared using the drill and keel punch. A 14 mm insert was placed. The femoral trial was placed. The trochlear cut was made. The knee was brought in full extension. Full extension was easily obtained, 120 degrees of flexion with gravity was easily obtained. There was no anterior/posterior or medial/lateral laxity in flexion or extension. The patella was then prepared by resecting 10 mm off the undersurface. The peg guide was placed and peg holes were drilled. The 32 button was placed. Knee was taken through range of motion, full extension was easily obtained, 120 degrees of flexion was easily obtained. There was no anterior/posterior or medial/lateral laxity in flexion or extension. The patella tracked well. The trials were removed. The joint was irrigated with pulse lavage. Bone ends were irrigated and dried. The tibial baseplate was cemented into position. Excessive cement was removed. The superior surface was irrigated and dried and the polyethylene insert was placed. The distal femur was irrigated and dried and the femoral prosthesis was cemented into position. Excessive cement was removed. The knee was brought into full extension and held until the cement had cured. The undersurface of patella was irrigated and dried and the button was placed, excessive cement was removed. Once the cement had cured, the knee was taken through range of motion. Full extension was easily obtained, 120 degrees of flexion with gravity was easily obtained. The patella tracked well. There was no anterior/posterior or medial/lateral laxity in flexion or extension. The joint was further irrigated with pulse lavage. Arthrotomy was closed with #2 Tevdek in btutak-ge-ziywc interrupted fashion. The subcutaneous tissues were irrigated and dried and using a total of 6 liters throughout the procedure. After the arthrotomy had been closed, the knee was flexed and the repair was stable. A total of 6 liters were used to irrigate throughout the procedure. A 0 Vicryl was used for deep subcutaneous tissue, 2-0 Vicryl for the superficial subcutaneous tissue, jose f used on the skin. A soft dressing was applied. The tourniquet was deflated. The patient was transferred to the recovery room awake and in stable condition. Job ID: [id number] DocumentID: [id number] Dictated Date: 06/17/2021 09:26:30 [facility] Senior Specialist Date: 06/17/2021 14:12:36 Dictated By: NIKO NEGRETE MD
[2021-06-17] MEDS: CEFUROXIME INJECTION 750 MG in WATER (STERILE) FOR INJECTION 10 ML IV SCH ×2 (16:16→23:55)
[2021-06-17] MEDS: ONDANSETRON 4 MG/2 ML (SDV) Z0FRAN IVP PRN (19:23)
[2021-06-17] MEDS ORDERED: cloNIDine 0.1 MG (CATAPRES) TAB PO PRN (20:30)
[2021-06-17] MEDS ORDERED: amLODIPine 5 MG (NORVASC) TAB PO ONE (20:30)
[2021-06-17] MEDS ORDERED: hydrALAZINE (APRESOLINE) 25 MG TAB PO PRN (20:30)
[2021-06-17] MEDS ORDERED: amLODIPine 5 MG (NORVASC) TAB ONE (20:43)
[2021-06-17] MEDS: GABAPENTIN 100 MG (NEURONTIN) CAP PO SCH (20:45)
[2021-06-18] VITALS: BP 145/65
[2021-06-18] MEDS: ONDANSETRON 4 MG/2 ML (SDV) Z0FRAN IVP PRN ×2 (00:09→08:57)
[2021-06-18] MEDS: oxyCODONE/APAP 5/325MG (PERCOCET 5) TABLET PO PRN ×3 (00:09→14:09)
[2021-06-18] MEDS: NS IV 1000 ML 1,000 ML IV SCH (02:14)
[2021-06-18 03:59] VITALS: BP 132/62
[2021-06-18 06:02] LABS: BASOPHILS # (AUTO) 0.1 10^3/uL (0.0-0.1); BASOPHILS % (AUTO) 1 % (0-10); EOSINOPHILS # (AUTO) 0.3 10^3/uL (0.0-0.3); EOSINOPHILS % (AUTO) 2 % (0-10); HEMATOCRIT 33 % (35-52); HEMOGLOBIN 10.1 g/dL (11.5-16.0); LYMPHOCYTES # (AUTO) 1.4 10^3/uL (1.0-4.0); LYMPHOCYTES % (AUTO) 11 % (12-44); MEAN CORPUSCULAR HEMOGLOBIN 30 pg (25-34); MEAN CORPUSCULAR HGB CONC 31 g/dL (32-36); MEAN CORPUSCULAR VOLUME 97 fL (80-99); MEAN PLATELET VOLUME 9.7 fL (9.0-12.2); MONOCYTES # (AUTO) 1.5 10^3/uL (0.0-1.0); MONOCYTES % (AUTO) 12 % (0-12); NEUTROPHILS # (AUTO) 9.5 10^3/uL (1.8-7.8); NEUTROPHILS % (AUTO) 74 % (42-75); PLATELET COUNT 230 10^3/uL (130-400); WHITE BLOOD COUNT 12.8 10^3/uL (4.3-11.0)
[2021-06-18 06:15] LABS: ALBUMIN 3.6 GM/DL (3.2-4.5)
[2021-06-18 06:16] LABS: CALCIUM 8.5 MG/DL (8.5-10.1)
[2021-06-18 06:17] LABS: TOTAL PROTEIN 6.4 GM/DL (6.4-8.2)
[2021-06-18 06:19] LABS: BILIRUBIN,TOTAL 0.8 MG/DL (0.1-1.0)
[2021-06-18 06:21] LABS: CREATININE SERUM 1.35 MG/DL (0.60-1.30)
[2021-06-18] MEDS ORDERED: LEVOTHYROXINE 75 MCG (LEVOTHROID) TABLET PO SCH (06:30)
[2021-06-18] MEDS ORDERED: MULTIVIT W/MINERALS TAB (THERAGRAN M) PO SCH (07:00)
[2021-06-18] MEDS ORDERED: ENOXAPARIN 30 MG/0.3 ML (LOVENOX) SYR SC SCH (07:30)
--- NOTE | 2021-06-18 07:53 | Progress Note ---
Standard Progress Note Progress Notes/Assess & Plan Date Seen by a Provider: Jun 18, 2021 Time Seen by a Provider: 07:52 Progress/Assessment & Plan post op check spinal still in effect radiographs--HW well positioned without fracture RLE--2 plus DP pulse with brisk cap refill s/p RTKA mobilize as able Final Diagnosis no complaints Vital Signs Date Time Temp Pulse Resp B/P (MAP) Pulse Ox O2 Delivery O2 Flow Rate FiO2 06/18/21 03:59 36.7 67 18 132/62 (85) 97 Nasal Cannula 3.00 06/18/21 00:00 36.3 59 18 145/65 (91) 95 Nasal Cannula 3.00 06/17/21 22:55 Nasal Cannula 3.00 06/17/21 21:03 96 Nasal Cannula 3.00 06/17/21 20:47 79 20 181/89 (119) 96 Nasal Cannula 3.00 06/17/21 16:00 36.1 69 20 172/82 (112) 93 Room Air 06/17/21 11:43 36.0 66 18 184/87 (119) 93 Room Air 06/17/21 10:20 36.7 20 169/83 (111) 92 Room Air 06/17/21 10:20 Room Air 06/17/21 10:20 Room Air 06/17/21 10:10 Room Air 06/17/21 10:10 20 170/83 (112) 93 Room Air 06/17/21 10:00 20 180/85 (116) 96 Room Air 06/17/21 10:00 Room Air 06/17/21 09:50 20 161/77 (105) 92 Room Air 06/17/21 09:45 Room Air 06/17/21 09:40 20 146/73 (97) 92 Room Air 06/17/21 09:30 20 146/73 (97) 94 Room Air 06/17/21 09:30 Room Air 06/17/21 09:27 Room Air 06/17/21 09:27 36.7 20 131/64 (86) 97 Room Air I & O 06/18/21 07:00 Intake Total 3915 ml Output Total 3750 ml Balance 165 ml Laboratory Tests Test 06/18/21 05:40 Range/Units White Blood Count 12.8 H 4.3-11.0 10^3/uL Red Blood Count 3.34 L 3.80-5.11 10^6/uL Hemoglobin 10.1 L 11.5-16.0 g/dL Hematocrit 33 L 35-52 % Mean Corpuscular Volume 97 80-99 fL Mean Corpuscular Hemoglobin 30 25-34 pg Mean Corpuscular Hemoglobin Concent 31 L 32-36 g/dL Red Cell Distribution Width 14.1 10.0-14.5 % Platelet Count 230 130-400 10^3/uL Mean Platelet Volume 9.7 9.0-12.2 fL Immature Granulocyte % (Auto) 1 % Neutrophils (%) (Auto) 74 42-75 % Lymphocytes (%) (Auto) 11 L 12-44 % Monocytes (%) (Auto) 12 0-12 % Eosinophils (%) (Auto) 2 0-10 % Basophils (%) (Auto) 1 0-10 % Neutrophils # (Auto) 9.5 H 1.8-7.8 10^3/uL Lymphocytes # (Auto) 1.4 1.0-4.0 10^3/uL Monocytes # (Auto) 1.5 H 0.0-1.0 10^3/uL Eosinophils # (Auto) 0.3 0.0-0.3 10^3/uL Basophils # (Auto) 0.1 0.0-0.1 10^3/uL Immature Granulocyte # (Auto) 0.1 0.0-0.1 10^3/uL Sodium Level 138 135-145 MMOL/L Potassium Level 4.0 3.6-5.0 MMOL/L Chloride Level 102 98-107 MMOL/L Carbon Dioxide Level 25 21-32 MMOL/L Anion Gap 11 5-14 MMOL/L Blood Urea Nitrogen 22 H 7-18 MG/DL Creatinine 1.35 H 0.60-1.30 MG/DL Estimat Glomerular Filtration Rate 38 BUN/Creatinine Ratio 16 Glucose Level 106 H 70-105 MG/DL Calcium Level 8.5 8.5-10.1 MG/DL Corrected Calcium 8.8 8.5-10.1 MG/DL Total Bilirubin 0.8 0.1-1.0 MG/DL Aspartate Amino Transf (AST/SGOT) 21 5-34 U/L Alanine Aminotransferase (ALT/SGPT) 14 0-55 U/L Alkaline Phosphatase 91 40-136 U/L Total Protein 6.4 6.4-8.2 GM/DL Albumin 3.6 3.2-4.5 GM/DL RLE--dressing intact. No calf tenderness. Neg Gabriela's s/p LORENA PT/OT ZO NEGRETE MD Jun 18, 2021 07:53
[2021-06-18 08:00] VITALS: BP 188/61
[2021-06-18] MEDS ORDERED: KCL 10 MEQ TAB (MICRO K) PO SCH (08:00)
--- NOTE | 2021-06-18 08:54 | Physical Therapy Daily Note ---
PT Daily Note-Current Subjective Patient in bed pre tx, agrees to PT, has 5/10 pain in right leg Appearance Patient in bed post tx with nurse call, phone, tray, all needs met. Mental Status Patient Orientation: Person, Place, Situation Attachments: IV Transfers SCALE: Activities may be completed with or without assistive devices. 2-Ajydhvuqep-ipiauls completes the activity by him/herself with no assistance from a helper. 5-Set-up or Clean-up Assistance-helper sets up or cleans up; patient completes activity. [place] assists only prior to or following the activity. 4-Supervision or Touching Assistance-helper provides verbal cues and/or touching/steadying and/or contact guard assistance as patient completes activity. Assistance may be provided throughout the activity or intermittently. 3-Partial/Moderate Assistance-helper does LESS THAN HALF the effort. [place] lifts, holds or supports trunk or limbs, but provides less than half the effort. 2-Substantial/Maximal Assistance-helper does MORE THAN HALF the effort. [place] lifts or holds trunk or limbs and provides more than half the effort. 6-Ahqzuegoj-ehjctw does ALL the effort. Patient does none of the effort to complete the activity. Or, the assistance of 2 or more helpers is required for the patient to complete the activity. If activity was not attempted, code reason: 7-Patient Refused. 9-Not Applicable-not attempted and the patient did not perform the activity before the current illness, exacerbation or injury. 10-Not Attempted due to Environmental Limitations-(lack of equipment, weather restraints, etc.). 88-Not Attempted due to Medical Conditions or Safety Concerns. Roll Left & Right (QC): 6 Sit to Lying (QC): 4 Lying to Sitting/Side of Bed(Q: 4 Sit to Stand (QC): 3 Patient sits on the side of the bed and gets nauseated, it subsides a little and she can stand Weight Bearing Right Lower Extremity: Right Weight Bearing/Tolerated Gait Training Distance: 3' Gait Persons Needed: 1 Gait Assistive Device: FWW min assist, patient stands and nausea gets worse, a basin is available but she never actually vomits, patient is able to take a couple of small steps forward and back, she is very unsteady and nausea continues to get worse, she steps back to the bed, sits and then lays down Exercises Supine Ex: Ankle pumps, Quad Set, Heel Slides, Short Arc Quads, Straight leg raise Supine Reps: 10 Treatments bed mobility and transfers, ambulation, LE strengthening Assessment Current Status: Poor Progress patient very unsteady with standing and ambulating PT Short Term Goals Short Term Goals Time Frame: Jun 24, 2021 Roll Left & Right: 4 Sit to lyin Lying to sitting on side of be: 4 Sit to stand: 4 Chair/crd-si-quocw transfer: 4 Toilet transfer: 4 Car transfer: 4 Walk 10 feet: 4 Walk 50 feet with two turns: 4 Walk 150 feet: 4 1 step (curb): 3 4 steps: 3 PT Textile Machine Maintenance Mechanic Goals Textile Machine Maintenance Mechanic Goals PT Textile Machine Maintenance Mechanic Goals Time Frame: Jul 01, 2021 Roll Left & Right (QC): 5 Sit to Lying (QC): 5 Lying-Sitting on Side/Bed(QC): 5 Sit to Stand (QC): 5 Chair/Iet-ci-Xaorw Xfer(QC): 5 Toilet Transfer (QC): 5 Car Transfer (QC): 5 Does the Patient Walk: Yes Walk 10 feet (QC): 5 Walk 50ft with 2 Turns (QC): 5 Walk 150 ft (QC): 5 1 Step (curb) (QC): 4 4 Steps (QC): 4 12 Steps (QC): 4 PT Plan Problem List Problem List: Activity Tolerance, Functional Strength, Safety, Balance, Gait, Transfer, Bed Mobility, ROM Treatment/Plan Treatment Plan: Continue Plan of Care Treatment Plan: Bed Mobility, Education, Functional Activity Gilda, Functional Strength, Gait, Safety, Therapeutic Exercise, Transfers Treatment Duration: Aug 05, 2021 Frequency: 11 times per week Estimated Hrs Per Day: .25 hour per day Patient and/or Family Agrees t: Yes Safety Risks/Education Patient Education: Gait Training, Transfer Techniques, Correct Positioning, Safety Issues Teaching Recipient: Patient Teaching Methods: Demonstration, Discussion Response to Teaching: Reinforcement Needed Time/GCodes Time In: 810 Time Out: 829 Total Billed Treatment Time: 19 Total Billed Treatment 1 visit FA 19' CRUZANDRESABRINA PT Jun 18, 2021 08:54
[2021-06-18] MEDS ORDERED: NON-FORMULARY MEDICATION 1 EA EA (Diltiazem HCl (Dilt-Xr) 240 MG) PO SCH (09:00)
[2021-06-18] MEDS ORDERED: RIVAROXABAN 20 MG TABLET (XARELTO) PO SCH (09:00)
[2021-06-18] MEDS ORDERED: FUROSEMIDE 20 MG (LASIX) TAB PO SCH (09:00)
[2021-06-18] MEDS: GABAPENTIN 100 MG (NEURONTIN) CAP PO SCH (10:16)
[2021-06-18] MEDS: ASPIRIN E.C. 81 MG (ECOTRIN) TAB PO SCH ×2 (10:16→10:17)
[2021-06-18] MEDS: SENNA W/DOCUSATE (SENOKOT S) TABLET PO SCH (10:16)
--- NOTE | 2021-06-18 11:54 | Occupational Therapy Eval ---
OT Evaluation-General/PLF Medical Diagnosis Admission Date Jun 17, 2021 at 06:00 Medical Diagnosis: Right TKA Onset Date: Jun 17, 2021 Therapy Diagnosis Therapy Diagnosis: Imapired adls, balance, endurance, cognition, safety, sequencing Height/Weight Height (Feet): 5 Height (Inches): 9.00 Weight (Pounds): 171 Weight (Ounces): 9.0 Precautions Precautions/Isolations: Fall Prevention Weight Bear Status Weight Bearing Restriction: Weight Bearing/Tolerated Location Restriction: R LE Referral Physician: Dr. Barton Referral Reason: Evaluation/Treatment Medical History Pertinent Medical History: Atrial Fib, HTN Additional Medical History pacemaker Current History Post op day 1 R TKA. Some inconsistency with responses during interview. Pt reports living in single story home with spouse. Mod I for adls and IADLs. Does not drive and was using a walker at [facility]. Social History Home: Single Level Current Living Status: Spouse Entry Into Home: Stairs With Railing Steps Into Home: 2 ADL-Prior Level of Function SCALE: Activities may be completed with or without assistive devices. 0-Upxbbhindv-hhllavj completes the activity by him/herself with no assistance from a helper. 5-Set-up or Clean-up Assistance-helper sets up or cleans up; patient completes activity. [place] assists only prior to or following the activity. 4-Supervision or Touching Assistance-helper provides verbal cues and/or touching/steadying and/or contact guard assistance as patient completes a ctivity. Assistance may be provided throughout the activity or intermittently. 3-Partial/Moderate Assistance-helper does LESS THAN HALF the effort. [place] lifts, holds or supports trunk or limbs, but provides less than half the effort. 2-Substantial/Maximal Assistance-helper does MORE THAN HALF the effort. [place] lifts or holds trunk or limbs and provides more than half the effort. 0-Girifqfsg-zvwjal does ALL the effort. Patient does none of the effort to complete the activity. Or, the assistance of 2 or more helpers is required for the patient to complete the activity. If activity was not attempted, code reason: 7-Patient Refused. 9-Not Applicable-not attempted and the patient did not perform the activity before the current illness, exacerbation or injury. 10-Not Attempted due to Environmental Limitations-(lack of equipment, weather restraints, etc.). 88-Not Attempted due to Medical Conditions or Safety Concerns. Self Care: Independent Functional Cognition: Independent DME/Equipment: Bath Bench, Grab Bars, Shower Drive Self: No OT Current Status Subjective Pt reports discomfort in R knee, does not give numerical value. Appearance Pt left supine in bed, all needs within reach. Ice applied. Mental Status/Objective Patient Orientation: Person, Confused Attachments: IV, Oxygen, Other-See Comments Current Glasses/Contacts: Yes Hearing Aids: Yes Hand Dominance: Right Upper Extremity ROM WFL [place]. ADL-Treatment On/Off Footwear (QC): 1 Toileting Hygiene (QC): 2 (per clinical judgement. ) Pt reports normally getting out of bed on L side at baseline. Requires max a to sit EOB on Left. Retropulsive, unable to sustain balance and impulsively throws trunk back into bed but needing assist with lifting legs into bed. She then reports wanting to try on R side because she was mistaken earlier. Min-mod a to sit up on Right. Improved sitting balance 2nd time and able to sustain upright posture during conversation with rehabilitation psychologist and social work. Discussion on inpatient rehab and expectations. Pt to d/c to inpatient rehab later today. Sit<>stand: mod a. Unsteady on feet, no steps taken. Anticipate assist for clothing management due to poor standing balance. Again, pt impulsively throws self back into bed when returning to supine. Education provided on safety. Simplification and repetition of cues needed throughout all tasks. Very poor safety. Education OT Patient Education: Correct positioning, Energy conservation, Modified ADL techniques, Progress toward Goal/Update tx plan, Purpose of tx/functional activities, Reviewed precautions, Rehab process, Safety issues, Transfer techniques Teaching Recipient: Patient Teaching Methods: Demonstration, Discussion Response to Teaching: Reinforcement Needed OT Detention Goals Detention Goals Time Frame: Jul 10, 2021 Eating (QC): 6 Oral Hygiene (QC): 6 Toileting Hygiene (QC): 6 Shower/Bathe Self (QC): 4 Upper Body Dressing (QC): 5 Lower Body Dressing (QC): 5 On/Off Footwear (QC): 4 1=Demonstrate adherence to instructed precautions during ADL tasks. 2=Patient will verbalize/demonstrate understanding of assistive devices/modifications for ADL. 3=Patient will improve strength/tolerance for activity to enable patient to perform ADL's. OT Education/Plan Problem List/Assessment Assessment: Decreased Activ Tolerance, Decreased Safety Aware, Impaired Bed Mobility, Impaired Cognition, Impaired Funct Balance, Impaired I ADL's, Impaired Self-Care Skills Discharge Recommendations Plan/Recommendations: Continue POC Therapy Discharge Recommendati: Post Acute OT Treatment Plan/Plan of Care Treatment,Training & Education: Yes Patient would benefit from OT for education, treatment and training to promote independence in ADL's, mobility, safety and/or upper extremity function for ADL's. Plan of Care: ADL Retraining, Cognitive Retraining, Functional Mobility, Group Exercise/Act as Ind, UE Funct Exercise/Act Treatment Duration: Jul 10, 2021 Frequency: 5 times per week Estimated Hrs Per Day: .25 hour per day Agreement: Yes Rehab Potential: Good Time/GCodes Start Time: 10:39 Stop Time: 11:02 Total Time Billed (hr/min): 23 Billed Treatment Time 1 visit, EVM (15 min) FA (8 min) Savannah Franco OT Jun 18, 2021 11:54
--- NOTE | 2021-06-18 16:14 | Anesthesia-General Post-Op ---
General Patient Condition Mental Status/LOC: Same as Preop Cardiovascular: Satisfactory Nausea/Vomiting: Absent Respiratory: Satisfactory Pain: Controlled Complications: Absent Post Op Complications Complications None Follow Up Care/Instructions Patient Instructions None needed. Anesthesia/Patient Condition Patient Condition Patient was seen on the inpatient rehab floor and she is doing well, no complaints, stable vital signs, no apparent adverse anesthesia problems. ISABELLA GIRARD DO Jun 18, 2021 16:14
--- NOTE | 2021-06-19 08:51 | DISCHARGE SUMMARY ---
DATE OF SERVICE: DIAGNOSES: 1. Right knee primary osteoarthritis. 2. Atrial fibrillation. 3. Aortic valve replacement. 4. Hypertension. 5. Hyperlipidemia. 6. Hypothyroidism. PROCEDURE: Right total knee arthroplasty. SUMMARY: The patient is an 80-year-old female who underwent a right total knee arthroplasty on the day of admission. Postoperatively, she was doing well. Her dressing was clean and dry. She was neurovascularly intact. CONDITION AT DISCHARGE: Good. DISCHARGE DISPOSITION: Transferred to the inpatient rehabilitation unit for continued physical and occupational therapy. Job ID: [id number] DocumentID: [id number] Dictated Date: 06/18/2021 15:34:41 Nutrition Aide Date: 06/19/2021 08:50:38 Dictated By: ZO NEGRETE MD
== END 2021-06-18 14:24 | DRG 470 ==
LOC: 4TH 06:00 → SURG 06:01 → 4TH 10:28
PROVIDERS: ADMIT Orthopaedic Surgery; ATTEND Orthopaedic Surgery
PROC: 0SRC0J9 Replacement of Right Knee Joint with Synthetic Substitute, Cemented, Open Approach (ICD-10-PCS; principal; 2021-06-17 07:34)
DX: M17.11 Unilateral primary osteoarthritis, right knee (principal); I10 Essential (primary) hypertension; E78.5 Hyperlipidemia, unspecified; E03.9 Hypothyroidism, unspecified; I48.91 Unspecified atrial fibrillation; E78.00 Pure hypercholesterolemia, unspecified; Z95.2 Presence of prosthetic heart valve; Z88.0 Allergy status to penicillin; Z95.0 Presence of cardiac pacemaker; Z95.5 Presence of coronary angioplasty implant and graft; Z97.4 Presence of external hearing-aid; Z79.899 Other long term (current) drug therapy
CPT/HCPCS: 36415; 73560; 80053; 85025; 86850; 86900; 86901

== ENCOUNTER 2021-06-18 13:20 | Inpatient (IN) | payer MEDICARE ==
[~2021-06-18] VITALS: Ht 175 cm; Wt 77.9 kg
[2021-06-18 14:34] VITALS: BP 121/60
--- NOTE | 2021-06-18 14:41 | Physical Therapy Evaluation ---
PT Evaluation-General Medical Diagnosis Admission Date Jun 18, 2021 at 13:40 Medical Diagnosis: Right TKA Onset Date: Jun 17, 2021 Therapy Diagnosis Therapy Diagnosis: Gait deficit, strength deficit Height/Weight Height (Feet): 5 Height (Inches): 9.00 Weight (Pounds): 171 Weight (Ounces): 9.0 Precautions Precautions/Isolations: Fall Prevention Weight Bear Status Right Lower Extremity: Right Weight Bearing/Tolerated Referral Physician: Dr. Portillo Reason for Referral: Evaluation/Treatment Medical History Pertinent Medical History: Atrial Fib, HTN Social History Home: Single Level Current Living Status: Spouse Entry Into Home: Stairs With Railing PT Steps Into Home: 3 Prior Prior Level of Function SCALE: Activities may be completed with or without assistive devices. 2-Ufeejlpgiz-lpfsexv completes the activity by him/herself with no assistance from a helper. 5-Set-up or Clean-up Assistance-helper sets up or cleans up; patient completes activity. [place] assists only prior to or following the activity. 4-Supervision or Touching Assistance-helper provides verbal cues and/or touching/steadying and/or contact guard assistance as patient completes activity. Assistance may be provided throughout the activity or intermittently. 3-Partial/Moderate Assistance-helper does LESS THAN HALF the effort. [place] lifts, holds or supports trunk or limbs, but provides less than half the effort. 2-Substantial/Maximal Assistance-helper does MORE THAN HALF the effort. [place] lifts or holds trunk or limbs and provides more than half the effort. 0-Pjvsuftgx-ibgyqv does ALL the effort. Patient does none of the effort to complete the activity. Or, the assistance of 2 or more helpers is required for the patient to complete the activity. If activity was not attempted, code reason: 7-Patient Refused. 9-Not Applicable-not attempted and the patient did not perform the activity before the current illness, exacerbation or injury. 10-Not Attempted due to Environmental Limitations-(lack of equipment, weather restraints, etc.). 88-Not Attempted due to Medical Conditions or Safety Concerns. Bed Mobility: 6 Transfers (B,C,W/C): 6 Gait: 6 Stairs: 6 Indoor Mobility (Ambulation): Independent Stairs: Independent Prior Devices Use: Walker Prior Device Use: Has a cane, FWW, W/C, shower chair PT Evaluation-Current Subjective Patient sleeping upon PT/OT arrival, difficult to arouse. Patient reports pain currently is 5/10. Patient reports that "My knee really, really hurts, you guys don't believe me." Objective Patient Orientation: Person, Place Attachments: Oxygen, Miles Catheter, Polar Pack, IV ROM/Strength ROM Lower Extremities Right knee AROM flexion 60 degrees; Extension 10 degrees from neutral. Strength Lower Extremities Right knee N/A due to surgery; all other right hip and ankle planes 3+/5 Left LE 3+/5 grossly. Sensory Vision: Wears Glasses Hearing: Impaired Sensation Right Lower Extremit: Intact Sensation Left Lower Extremity: Intact Transfers Roll Left & Right (QC): 3 Sit to Lying (QC): 3 Lying to Sitting/Side of Bed(Q: 3 Sit to Stand (QC): 2 Chair/Wke-ws-Vzmbf Xfer(QC): 2 Toilet Transfer (QC): 2 Car Transfer (QC): 88 Gait Does the Patient Walk?: Yes Mode of Locomotion: Walk Anticipated Mode of Locomotion: Walk Walk 10 feet (QC): 2 Walk 50 ft with 2 Turns(QC): 88 Walk 150 ft (QC): 88 Walking 10ft/uneven surface-QC: 88 Distance: 10 feet Gait Assistive Device: FWW Comments/Gait Description Patient requires max coaxing and max A for initiation. Patient demonstrates difficulty with placing weight through right LE and tends to let go of the FWW when she experiences any pain. Patient demonstrates a step to gait pattern on the left when she is able to focus on gait. Wheelchair Training Does the Pt Use a Wheelchair?: Yes Distance: 30 Wheel 50 ft with 2 turns (QC): 88 Wheel 150 ft (QC): 88 Type of Wheelchair: Manual Stairs #of Steps: 0 1 Step (curb) (QC): 88 4 Steps (QC): 88 12 Steps (QC): 88 Balance Sitting Static: Fair Sitting Dynamic: Poor Standing Static: Poor Standing Dynamic: Poor Picking up an Object (QC): 88 Assessment/Needs Patient demonstrates significant difficulty waking up initially and once she is awake even more difficulty focusing on the task at hand. Patient reports that her knee hurts severely with any movement and upon sitting at the edge of the bed pretends to pass out. Initially it was thought the patient did lose consciousness, however when four staff members jumped and yelled to help her she began to smile and then laugh. Patient pretended to pass out four more times including twice while standing and ambulating. Each time it was stressed by multiple staff including PT and OT that this was not only unsafe from the point that if she pretends to pass out that she may fall to the ground, but also in performing this type of joke she may injure her right surgical knee as she may twist in an awkward manner that her knee will not tolerate. Patient required mo d/max A for all observed bed mobility and transfers. She required max A x 2 for gait and maximal cueing/coaxing to perform. Patient required mod A and verbal cues for stand to sit in the w/c. Patient propels the w/c 30 feet with min a and frequent verbal cues for steering and obstacles. Patient in w/c with OT post PT evaluation and treatment. PT and OT co-treated due to patients need for concurrent therapies for patients fall risk, safety and due to patient current cognitive levels. Rehab Potential: Fair PT Short Term Goals Short Term Goals Time Frame: Jun 25, 2021 Roll Left & Right: 4 Sit to lyin Lying to sitting on side of be: 4 Sit to stand: 4 Chair/nud-xg-hykdy transfer: 4 Toilet transfer: 4 Car transfer: 4 Walk 10 feet: 3 Walk 50 feet with two turns: 3 Walk 150 feet: 3 Walking 10ft on uneven surface: 3 Does pt use a wc or scooter: Yes Wheel 50ft w/2 turns: 4 Wheel 150 feet: 4 Type: Manual PT Fdc Goals Fdc Goals PT Laborer High Density Press Goals Time Frame: Jul 22, 2021 Roll Left & Right (QC): 5 Sit to Lying (QC): 5 Lying-Sitting on Side/Bed(QC): 5 Sit to Stand (QC): 5 Chair/Dbf-hs-Kxvlr Xfer(QC): 5 Toilet Transfer (QC): 5 Car Transfer (QC): 5 Does the Patient Walk: Yes Walk 10 feet (QC): 4 Walk 50ft with 2 Turns (QC): 4 Walk 150 ft (QC): 4 Walking 10ft on Uneven Surface: 4 1 Step (curb) (QC): 3 4 Steps (QC): 3 12 Steps (QC): 3 Picking up an Object (QC): 4 Does the Pt use WC or Scooter?: Yes Wheel 50 feet with 2 turns (QC: 5 Type: Manual Wheel 150 feet: 5 Type: Manual PT Plan Problem List Problem List: Activity Tolerance, Functional Strength, Safety, Balance, Gait, Transfer, Bed Mobility, ROM Treatment/Plan Treatment Plan: Continue Plan of Care Treatment Plan: Bed Mobility, Education, Functional Activity Gilda, Functional Strength, Group Therapy, Gait, Safety, Therapeutic Exercise, Transfers Treatment Duration: Aug 05, 2021 Frequency: At least 5 of 7 days/Wk (IRF) Estimated Hrs Per Day: 1.5 hours per day Safety Risks/Education Patient Education: Gait Training, Transfer Techniques, Reviewed Precautions Teaching Recipient: Patient Teaching Methods: Demonstration, Discussion Response to Teaching: Reinforcement Needed Discharge Recommendations Target Placement Home with A as needed Time/GCodes Time In: 1350 Time Out: 1430 Total Billed Treatment Time: 30 Total Billed Treatment Visit, Eval, Gait 30 minutes of eval/treatment, 10 minutes co-treat eval with JOAQUÍN MOLINA PT Jun 18, 2021 14:41
--- NOTE | 2021-06-18 15:36 | Physical Therapy Daily Note ---
PT Daily Note-Current Subjective Pt in in room with OT and nursing in room upon arrival and agrees to co- treat. Pt states pain in R knee, doesn't rate out of 10 at this time. Pt extremely confused, unable to answer questions or recognize spouse in room. Pt continuously kept falling asleep during tx. Post tx, pt began vomiting and RN notified. Mental Status Patient Orientation: Person, Confused Transfers SCALE: Activities may be completed with or without assistive devices. 9-Wqynjylnro-pdruhjf completes the activity by him/herself with no assistance from a helper. 5-Set-up or Clean-up Assistance-helper sets up or cleans up; patient completes activity. [place] assists only prior to or following the activity. 4-Supervision or Touching Assistance-helper provides verbal cues and/or touching/steadying and/or contact guard assistance as patient completes activity. Assistance may be provided throughout the activity or intermittently. 3-Partial/Moderate Assistance-helper does LESS THAN HALF the effort. [place] lifts, holds or supports trunk or limbs, but provides less than half the effort. 2-Substantial/Maximal Assistance-helper does MORE THAN HALF the effort. [place] lifts or holds trunk or limbs and provides more than half the effort. 8-Czfurrhvg-nvkrrg does ALL the effort. Patient does none of the effort to complete the activity. Or, the assistance of 2 or more helpers is required for the patient to complete the activity. If activity was not attempted, code reason: 7-Patient Refused. 9-Not Applicable-not attempted and the patient did not perform the activity before the current illness, exacerbation or injury. 10-Not Attempted due to Environmental Limitations-(lack of equipment, weather restraints, etc.). 88-Not Attempted due to Medical Conditions or Safety Concerns. Roll Left & Right (QC): 2 Sit to Lying (QC): 2 Sit to Stand (QC): 2 Chair/Xzy-qu-Cwxtn Xfer(QC): 3 Pt sit to stand x3 in // bars requiring ModA. In room, using FWW and arms of WC pt required ModA x2 for sit <> stand and to transfer to bed Weight Bearing Right Lower Extremity: Right Weight Bearing/Tolerated Treatments OT focused on ADLs, dressing, and UE positioning/sequencing. PT focused on balance, transfers, and mobility. Pt in in room, propelled to therapy gym by PT. Once in gym pt directed to // bars. Pt sit to stand ModA x3 in // bars, holds standing with weight shifting. During rest breaks, pt would be encouraged to participate in UE ROM activities. Pt would begin activity, then begin to fall asleep. Post 3rd sit to stand, pt propelled back to room, SPT back to bed ModA x2 with FWW, sit <> supine MaxA x2. Once supine pt states she is going to vomit, HOB raised and pt given bin right before she vomits. RN notified. Pt polar pack is donned on knee, pt lunch is placed on tray in front of her, set up A given. Pt remains in bed with all needs met, call light in hand and spouse still in room. Assessment Current Status: Poor Progress Pt continuously kept falling asleep during tx, encouragement and VC given for pt to participate in therapy. Pt extremely confused, unable to answer direct questions PT Short Term Goals Short Term Goals Time Frame: Jun 25, 2021 Roll Left & Right: 4 Sit to lyin Lying to sitting on side of be: 4 Sit to stand: 4 Chair/cev-sp-eaomr transfer: 4 Toilet transfer: 4 Car transfer: 4 Walk 10 feet: 3 Walk 50 feet with two turns: 3 Walk 150 feet: 3 Walking 10ft on uneven surface: 3 Does pt use a wc or scooter: Yes Wheel 50ft w/2 turns: 4 Wheel 150 feet: 4 Type: Manual PT Long-Term Goals Market Basket Maker Goals PT Long-Term Goals Time Frame: Jul 22, 2021 Roll Left & Right (QC): 5 Sit to Lying (QC): 5 Lying-Sitting on Side/Bed(QC): 5 Sit to Stand (QC): 5 Chair/Biv-di-Bcqum Xfer(QC): 5 Toilet Transfer (QC): 5 Car Transfer (QC): 5 Does the Patient Walk: Yes Walk 10 feet (QC): 4 Walk 50ft with 2 Turns (QC): 4 Walk 150 ft (QC): 4 Walking 10ft on Uneven Surface: 4 1 Step (curb) (QC): 3 4 Steps (QC): 3 12 Steps (QC): 3 Picking up an Object (QC): 4 Does the Pt use WC or Scooter?: Yes Wheel 50 feet with 2 turns (QC: 5 Type: Manual Wheel 150 feet: 5 Type: Manual PT Plan Problem List Problem List: Activity Tolerance, Functional Strength, Safety, Balance, Gait, Transfer, Bed Mobility, ROM Treatment/Plan Treatment Plan: Continue Plan of Care Treatment Plan: Bed Mobility, Education, Functional Activity Gilda, Functional Strength, Group Therapy, Gait, Safety, Therapeutic Exercise, Transfers Treatment Duration: Aug 05, 2021 Frequency: At least 5 of 7 days/Wk (IRF) Estimated Hrs Per Day: 1.5 hours per day Safety Risks/Education Patient Education: Transfer Techniques Teaching Recipient: Patient Teaching Methods: Discussion Response to Teaching: Reinforcement Needed Time/GCodes Time In: 230 Time Out: 330 Total Billed Treatment Time: 60 Total Billed Treatment 1, FA x3, NM PAULA [employer] Jun 18, 2021 15:36
--- NOTE | 2021-06-18 15:37 | Occupational Therapy Eval ---
OT Evaluation-General/PLF Medical Diagnosis Admission Date Jun 18, 2021 at 13:40 Medical Diagnosis: Right TKA Onset Date: Jun 17, 2021 Therapy Diagnosis Therapy Diagnosis: decreased ADL status Height/Weight Height (Feet): 5 Height (Inches): 9.00 Weight (Pounds): 171 Weight (Ounces): 9.0 Precautions Precautions/Isolations: Fall Prevention Referral Physician: Dr. Portillo Referral Reason: Evaluation/Treatment Medical History Pertinent Medical History: Atrial Fib, HTN Social History Home: Single Level Current Living Status: Spouse Entry Into Home: Stairs With Railing Steps Into Home: 3 ADL-Prior Level of Function SCALE: Activities may be completed with or without assistive devices. 4-Iqmmffdvex-flahbpf completes the activity by him/herself with no assistance from a helper. 5-Set-up or Clean-up Assistance-helper sets up or cleans up; patient completes activity. [place] assists only prior to or following the activity. 4-Supervision or Touching Assistance-helper provides verbal cues and/or touching/steadying and/or contact guard assistance as patient completes activity. Assistance may be provided throughout the activity or intermittently. 3-Partial/Moderate Assistance-helper does LESS THAN HALF the effort. [place] lifts, holds or supports trunk or limbs, but provides less than half the effort. 2-Substantial/Maximal Assistance-helper does MORE THAN HALF the effort. [place] lifts or holds trunk or limbs and provides more than half the effort. 2-Aolpxfvqs-lkgngn does ALL the effort. Patient does none of the effort to complete the activity. Or, the assistance of 2 or more helpers is required for the patient to complete the activity. If activity was not attempted, code reason: 7-Patient Refused. 9-Not Applicable-not attempted and the patient did not perform the activity before the current illness, exacerbation or injury. 10-Not Attempted due to Environmental Limitations-(lack of equipment, weather restraints, etc.). 88-Not Attempted due to Medical Conditions or Safety Concerns. ADL PLOF Comments Pt reports IND with ADLs and functional mobility at [facility], using FWW. She has a walk in shower with grab bars, and a bench. Self Care: Independent Functional Cognition: Independent DME/Equipment: Bath Bench, Grab Bars, Shower DME/Equipment Comments FWW OT Current Status Subjective Pt agreeable to OT Tx. Very confused during session and kept falling asleep. Pt states she is having difficulty staying awake as she had pain pills and ART HISTORIAN medication. Pt required frequent redirection and cues to stay awake and participate. Mental Status/Objective Patient Orientation: Person, Confused Attachments: IV, Oxygen (3L), Polar Pack Current Glasses/Contacts: Yes Upper Extremity ROM WFL, BUE shoulder flexion to approx 160 degrees Upper Extremity Coordination WFL Upper Extremity Sensation unable to assess, pt states "tingling" in UEs, but unable to locate as she kept falling asleep. Upper Extremity Strength unable to formally assess as pt kept falling asleep during tx. ADL-Treatment Eating (QC): 5 (set up) Oral Hygiene (QC): 7 Shower/Bathe Self (QC): 88 Upper Body Dressing (QC): 88 Lower Body Dressing (QC): 1 (OT threaded BLEs into pants, pt assisted with pulling up onto legs. Assist x2 in stand, OT assisted with pant hike.) On/Off Footwear (QC): 1 (Total assist donning/doffing gripper socks. ) Toileting Hygiene (QC): 1 (Assist x2 in stand for clothing management.) Other Treatments OT evaluation complete. OT/PT cotreat due to skill of 2 clinicians required in order to coordinate UE/LEs, decrease fall risk, and due to pt's limitations in strength, mobility, activity tolerance, cognition, alertness (pt just given pain med and has ART HISTORIAN medication). OT focused on ADLs, UE placement, cues for sequencing and safety, PT focused on LE placement, gross overall movement, and mobility/transfers. Pt had difficulty waking up initially and once awake difficulty focusing on tasks. Pt persisted on having knee pain with all movements, pretending to pass out at EOB. Initially it was thought that she did lose consciousness, but when 4 staff members jumped and yelled to help her she began smilling and laughing saying "I'm kidding". Pt pretended to pass out 4 more times, including 2 times while standing/ambulating. Each time staff members stressed that it was unsafe as she could fall on the floor or injure her R knee by twisting in an awkward manner. She required mod/max A for bed mobility/transfers, requiring max A x2 for ambulation with max cueing/coaxing to perform. Mod A and verbal cues for sit to stand, able to perform functional mobility x10' total. Pt performed w/c mobility 30' with min A and frequent verbal cueing for steering and obstacles. Pt taken to her room, LE clothing donned, assist x2 in stand for pant hike. She was then taken to therapy gym. Pt kept falling asleep requiring frequent cues to stay awake. Pt agreeable to listening to music and "dancing". Pt taken to parallel bars, stood x3 trials ~30seconds each, occasionally swaying her hips back and forth in order to promote weight shifting. During 1 seated rest break, pt performed UE movements, clapping her hands overhead x5 reps before stating she is too weak. Pt taken back to room, transferred to EOB mod A x2, then sit to supine max A x2. Pt states she is going to vomit, HOB raised and pt given bin right before she vomits. RN notified. Polar pack placed RLE. Pt's lunch tray placed in front of her, OT provided set up assistance. Pt in room, pt asks who the endy is (OT unsure if pt was unaware or attempting to make a joke). Post tx, pt in bed, call light in reach and all needs met. Education OT Patient Education: Correct positioning, Energy conservation, Modified ADL techniques, Progress toward Goal/Update tx plan, Purpose of tx/functional activities, Rehab process, Safety issues, Transfer techniques Teaching Recipient: Patient Teaching Methods: Discussion Response to Teaching: Reinforcement Needed OT Short Term Goals Short Term Goals Time Frame: Jul 01, 2021 Toileting hygiene: 4 Shower/bathe self: 4 Upper body dressin Lower body dressin Putting on/taking off footwear: 4 OT Custodial Goals Custodial Goals Time Frame: Jul 17, 2021 Eating (QC): 6 Oral Hygiene (QC): 6 Toileting Hygiene (QC): 6 Shower/Bathe Self (QC): 6 Upper Body Dressing (QC): 6 Lower Body Dressing (QC): 6 On/Off Footwear (QC): 6 Additional Goals: 1-Demonstrate ADL Tasks, 2-Verbalize Understanding, 3- ImproveStrength/Gilda 1=Demonstrate adherence to instructed precautions during ADL tasks. 2=Patient will verbalize/demonstrate understanding of assistive devices/modifications for ADL. 3=Patient will improve strength/tolerance for activity to enable patient to perform ADL's. OT Education/Plan Problem List/Assessment Assessment: Decreased Activ Tolerance, Decreased Safety Aware, Decreased UE Strength, Dependent Transfers, Impaired Bed Mobility, Impaired Cognition, Impaired Funct Balance, Impaired I ADL's, Impaired Self-Care Skills Discharge Recommendations Plan/Recommendations: Continue POC Treatment Plan/Plan of Care Patient would benefit from OT for education, treatment and training to promote independence in ADL's, mobility, safety and/or upper extremity function for ADL's. Plan of Care: ADL Retraining, Functional Mobility, Group Exercise/Act as Ind, UE Funct Exercise/Act Treatment Duration: Jul 17, 2021 Frequency: At least 5 of 7 days/Wk (IRF) Estimated Hrs Per Day: 1.5 hours per day Rehab Potential: Fair Time/GCodes Start Time: 14:00 Stop Time: 15:30 Total Time Billed (hr/min): 90 Billed Treatment Time OT eval [id number], OT/PT cotreat [id number] 1, EVM (10'), FA 5 (80') DOUG BRINK OT Jun 18, 2021 15:37
--- NOTE | 2021-06-18 17:15 | Progress Note ---
ALFREDA SAMPSON MED STUDENT 06/18/21 1715: Progress Note H&P CC: Debility s/p R TKA 06/17/21 HPI: Corina is transferred to IRF for PT/OT rehab s/p R TKA d/t OA. She underwent elective R TKA due to worsening OA and reports of multiple falls over the past few months. Currently denies any pain. She has been nauseous inte rmittently since her surgery and had some episodes of vomiting yesterday. She is a very poor historian with poor memory, otherwise AAOx3 and cooperative. Denies home O2 requirement. Significant cardiac history. ROS: urine incontinence, increased urinary frequency. SELDOVIA(hearing aid). denies fevers/chills, chest pain, SOB, lightheadedness/dizziness, abd pain, dysuria, hematuria PMH: * HTN * CAD; TX in Nov 13 w/ 1x stent to LAD * PAF * Severe aortic stenosis; TAVR in Aug 2017 * Bilateral carotid artery stenosis; mild * Sick sinus syndrome; permanent pacemaker * OA * HLD * Hypothyroidism PSH: * Hysterectomy * Cataract surgery * Pacemaker implant Apr 2015 * Ureteral stent placement/removal Sep 2018 Meds: * Atorvastatin 20mg PO QD * Carvedilol 12.5mg PO BID * Diltiazem 240mg PO QD * Furosemide 20mg PO QD * Gabapentin 100mg PO BID * Levothyroxine 75mcg PO BID * K supplement 20mEq PO QD * Rivaroxaban 20mg PO QD Allergies * PCN * Pineapple * No environmental allergies FHx: Unknown(pt reports being an orphan) SocialHx: * Denies smoking hx * Denies alcohol use * Denies recreational drug use * 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 Pulses: +1/4 RUE, +2/4 LUE/BLE Respiratory: Lungs CTAB, diminished bilaterally, no accessory muscle use GI/: BS active x4 quadrants, nontender, nondistended MSK: RLE: knee dressing CDI, immobilizer/brace in place, moderate distal edema, NVI distally. LLE, BUE full ROM, no edema, strength +4/5. negative Homans Skin: warm/dry, R knee surgical site not visualized; dressing in place CDI, no lesions/ulcers/rashes Psych: responds appropriately, no signs of anxiety/depression/agitation A/P: Debility POD#1 R TKA 06/17/21 Pain management PT/OT eval and treatment IRF protocol bowel regimen CAD; TX in 2007, 1x stent LAD HTN HLD PAF SSS; permanent pacemaker Aortic stenosis; TAVR Aug 2017 No acute issues Continue home regimen Cognitive deficit Poor memory/cognition ST consult Hypothyroidism Resume home regimen DVT prophylaxis Takes LILLIAM Mckeon DO 06/19/21 0548: Supervisory-Addendum Brief Verification & Attestation Participated in pt care: history, MDM, physical Personally performed: exam, history, MDM, supervision of care Care discussed with: Medical Student Procedures: n/a Results interpretation: Verified all documentation Verification and Attestation of Medical Student E/M Service A medical student performed and documented this service in my presence. I reviewed and verified all information documented by the medical student and made modifications to such information, when appropriate. I personally performed the physical exam and medical decision making. Lilliam Portillo, Jun 19, 2021,05:48 ALFREDA SAMPSON MED STUDENT Jun 18, 2021 17:15 LILLIAM PORTILLO DO Jun 19, 2021 05:48
[2021-06-18] MEDS ORDERED: ONDANSETRON 4 MG/2 ML (SDV) Z0FRAN IVP PRN (19:30)
[2021-06-18] MEDS ORDERED: LACTULOSE SYRUP 10GM/15ML (ENULOSE) 30ML UDC PO PRN (19:30)
[2021-06-18] MEDS ORDERED: diphenhydrAMINE 50 MG/ML INJ (BENADRYL) IVP PRN (19:30)
[2021-06-18] MEDS ORDERED: CALCIUM CARBONATE 500 MG (TUMS) TAB.CHEW PO PRN (19:30)
[2021-06-18] MEDS ORDERED: hydrALAZINE (APRESOLINE) 25 MG TAB PO PRN (19:30)
[2021-06-18] MEDS ORDERED: FLEET ENEMA ADULT 1 EA BTL PR PRN (19:30)
[2021-06-18] MEDS ORDERED: ONDANSETRON 4 MG (ZOFRAN) ORAL DISSOLVE TAB PO PRN (19:30)
[2021-06-18] MEDS ORDERED: guaiFENesin/CODEINE (ROBITUSSIN AC) 10ML UDC PO PRN (19:30)
[2021-06-18] MEDS ORDERED: DOCUSATE SODIUM 100 MG (COLACE) CAP PO PRN (19:30)
[2021-06-18] MEDS ORDERED: MELATONIN 3 MG TABLET PO PRN (19:30)
[2021-06-18] MEDS ORDERED: diphenhydrAMINE 25 MG TAB (BENADRYL) PO PRN (19:30)
[2021-06-18] MEDS ORDERED: cloNIDine 0.1 MG (CATAPRES) TAB PO PRN (19:30)
[2021-06-18] MEDS ORDERED: BISACODYL 10 MG SUPP (DULCOLAX) PR PRN (19:30)
[2021-06-18] MEDS ORDERED: ALPRAZolam 0.25 MG (XANAX) TAB PO PRN (19:30)
[2021-06-18] MEDS ORDERED: LOPERAMIDE 2 MG (IMODIUM) TABLET PO PRN (19:30)
[2021-06-18 20:00] VITALS: BP 147/65
--- NOTE | 2021-06-18 20:52 | PM&R Post Admission Assessment ---
PM&R HP Date of Visit: Jun 18, 2021 Time of Visit: 16:00 History of Present Illness Chief complaint: Debility following right knee replacement History present illness: This is an 80-year-old white female clinic patient of Dr. Prather who has a past medical history of permanent pacemaker and hypertension with CAD maintained on Xarelto for oral anticoagulation for stroke prophylaxis who presents to inpatient rehab following an uncomplicated right total knee replacement by Dr. Barton. She has been in inpatient rehab before. Her goal is a short stay regain independence in order to safely go home for independent living. She has not had any issues since I last saw her. CC: Debility s/p R TKA 06/17/21 HPI: Corina is transferred to IRF for PT/OT rehab s/p R TKA d/t OA. She underwent elective R TKA due to worsening OA and reports of multiple falls over the past few months. Currently denies any pain. She has been nauseous intermittently since her surgery and had some episodes of vomiting yesterday. She is a very poor historian with poor memory, otherwise AAOx3 and cooperative. Denies home O2 requirement. Significant cardiac history. ROS: urine incontinence, increased urinary frequency. NAVAJO(hearing aid). denies fevers/chills, chest pain, SOB, lightheadedness/dizziness, abd pain, dysuria, hematuria PMH: * HTN * CAD; SD in Nov 13 w/ 1x stent to LAD * PAF * Severe aortic stenosis; TAVR in Aug 2017 * Bilateral carotid artery stenosis; mild * Sick sinus syndrome; permanent pacemaker * OA * HLD * Hypothyroidism PSH: * Hysterectomy * Cataract surgery * Pacemaker implant Apr 2015 * Ureteral stent placement/removal Sep 2018 Meds: * Atorvastatin 20mg PO QD * Carvedilol 12.5mg PO BID * Diltiazem 240mg PO QD * Furosemide 20mg PO QD * Gabapentin 100mg PO BID * Levothyroxine 75mcg PO BID * K supplement 20mEq PO QD * Rivaroxaban 20mg PO QD Allergies * PCN * Pineapple * No environmental allergies FHx: Unknown(pt reports being an orphan) SocialHx: * Denies smoking hx * Denies alcohol use * Denies recreational drug use * 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 Pulses: +1/4 RUE, +2/4 LUE/BLE Respiratory: Lungs CTAB, diminished bilaterally, no accessory muscle use GI/: BS active x4 quadrants, nontender, nondistended MSK: RLE: knee dressing CDI, immobilizer/brace in place, moderate distal edema, NVI distally. LLE, BUE full ROM, no edema, strength +4/5. negative Homans Skin: warm/dry, R knee surgical site not visualized; dressing in place CDI, no lesions/ulcers/rashes Psych: responds appropriately, no signs of anxiety/depression/agitation A/P: Debility POD#1 R TKA 06/17/21 Pain management PT/OT eval and treatment IRF protocol bowel regimen CAD; SD in 2007, 1x stent LAD HTN HLD PAF SSS; permanent pacemaker Aortic stenosis; TAVR Aug 2017 No acute issues Continue home regimen Cognitive deficit Poor memory/cognition ST consult Hypothyroidism Resume home regimen DVT prophylaxis Takes ALFREDA Johnson MED STUDENT Jun 18, 2021 17:15 Past Ufrdkif-Hhztef-Zmtmpl Hx Past Med/Social Hx: Reviewed Nursing Past Med/Soc Hx, Reviewed and Corrections made Patient Social History Marrital Status: single Employed/Student: retired Alcohol Use: Denies Use Smoking Status: Never a Smoker Recent Hopitalizations: No Immunizations Up To Date Tetanus Booster (TDap): Unknown Pediatric: No Date of Pneumonia Vaccine: Apr 12, 2018 Date of Influenza Vaccine: Apr 08, 2020 Seasonal Allergies Seasonal Allergies: Yes Past Medical History Surgeries: Coronary Stent, Hysterectomy, Pacemaker Currently Using CPAP: No Currently Using BIPAP: No Cardiac: Atrial Fibrillation, High Cholesterol, Hypertension Reproductive: No Sexually Transmitted Disease: No HIV/AIDS: No Female Reproductive Disorders: Denies Hysterectomy Endocrine: Hypothyroidsim HEENT: Cataract Hearing Impairment: Hard of Hearing, Hearing Aide Right, Hearing Aide Left History of Blood Disorders: No Adverse Reaction to Blood Rogers: No Family History Patient reports no known family medical history. 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 Current Level of Fuctioning Roll Left to Right: 2 Sit to Lyin Lying to Sitting/Side of Bed: 3 Sit to Stand: 2 Chair/Szy-gd-Guhwk Xfer: 3 Car Transfer: 88 Does the Patient Walk: Yes Mode of Locomotion: Walk Anticipated Mode of Locomotion: Walk Walk 10 feet: 2 Walk 50 ft with 2 Turns: 88 Walk 150 ft: 88 Walking 10ft on uneven surface: 88 Gait Assistive Device: FWW Does the Pt Use a Wheelchair: Yes Wheelchair Distance: 30 Wheel 50 ft with 2 turns: 88 Wheel 150 ft: 88 Type of Wheelchair: Manual #of Steps: 0 1 Step (curb): 88 4 Steps: 88 12 Steps: 88 Picking up an Object: 88 Eatin (set up) Oral Hygiene: 7 Shower/Bathe Self: 88 Upper Body Dressin Lower Body Dressin (OT threaded BLEs into pants, pt assisted with pulling up onto legs. Assist x2 in stand, OT assisted with pant hike.) On/Off Footwear: 1 (Total assist donning/doffing gripper socks. ) Toileting Hygiene: 1 (Assist x2 in stand for clothing management.) PM&R Allergy/Meds/Data Review Allergies Coded Allergies: Penicillins (Verified Allergy, Unknown, 06/17/21) pineapple (Verified Allergy, Unknown, 06/17/21) Home Medications Scheduled Atorvastatin Calcium (Atorvastatin Calcium), 20 MG PO DAILY, (Reported) Carvedilol (Carvedilol), 12.5 MG PO BID, (Reported) Diltiazem HCl (Dilt-Xr), 240 MG PO DAILY, (Reported) Furosemide (Furosemide), 20 MG PO DAILY, (Reported) Gabapentin (Gabapentin), 100 MG PO BID, (Reported) Levothyroxine Sodium (Levothyroxine Sodium), 75 MCG PO DAILY, (Reported) Potassium Chloride (K-Tab ER), 20 MEQ PO DAILY, (Reported) Rivaroxaban (Xarelto), 20 MG PO DAILY, (Reported) Current Medications Current Medications Reviewed Review of Systems Constitutional: see HPI, malaise, weakness EENTM: no symptoms reported Respiratory: no symptoms reported Cardiovascular: no symptoms reported Gastrointestinal: no symptoms reported Genitourinary: no symptoms reported Musculoskeletal: joint pain Skin: no symptoms reported Psychiatric/Neurological: No Symptoms Reported All Other Systems Reviewed Negative Unless Noted: Yes Physical Exam Physical Exam Vital Signs Vital Signs - First Documented 06/18/21 06/18/21 14:34 15:45 Temp 36.8 Pulse 62 Resp 20 B/P (MAP) 121/60 (80) Pulse Ox 91 O2 Delivery Nasal Cannula O2 Flow Rate 3.00 Capillary Refill : Height, Weight, BMI Height: 5'9.00" Weight: 171lbs. 9.0oz. [id number]; 25.43 BMI Method:Stated General Appearance: No Apparent Distress, WD/WN Eyes: Bilateral Eye Normal Inspection, Bilateral Eye PERRL HEENT: PERRL/EOMI, Normal ENT Inspection, Pharynx Normal Neck: Full Range of Motion, Normal Inspection, Non Tender, Supple, Carotid Bruit Respiratory: Chest Non Tender, Lungs Clear, Normal Breath Sounds, No Accessory Muscle Use, No Respiratory Distress Cardiovascular: Regular Rate, Rhythm, No Edema, No Gallop, No JVD, No Murmur, Normal Peripheral Pulses Gastrointestinal: Normal Bowel Sounds, No Organomegaly, No Pulsatile Mass, Non Tender, Soft Back: Normal Inspection, No CVA Tenderness, No Vertebral Tenderness Extremity: Normal Capillary Refill, Normal Inspection, Normal Range of Motion (Decreased range of motion right leg), Non Tender, No Calf Tenderness, No Pedal Edema Neurologic/Psychiatric: Alert, Oriented x3, No Motor/Sensory Deficits, Normal Mood/Affect Skin: Normal Color, Warm/Dry Lymphatic: No Adenopathy PM&R Medical Assessment & Plan REHAB/MEDICAL ASSESSMENT AND PLAN: REHAB IMPAIRMENT GROUP: Right knee replacement ETIOLOGIC DIAGNOSIS: Right knee replacement The comorbidities that impact the patients function and/or functional outcome by: Chronic atrial fibrillation, anticoagulation, pacemaker, advanced age of 80 REHAB PLAN: The patient is being admitted to our comprehensive inpatient rehabilitation facility and can tolerate the intensity of service consisting of at least: 180 minutes of therapy a day, 5 out of 7 days a week Rehab treatment will consist of: PT and OT will focus on increasing ambulatory stamina with the use of assistive device while monitoring progress and OT will help increase independence in ADLs The patient/family has a good understanding of our discharge process and will benefit from an interdisciplinary inpatient rehabilitation program. The patient has potential to make improvement and is in need of at least two of the following multidisciplinary therapies including but not limited to physical, occupational, speech, and prosthetics and orthotics. Additionally the patient will need services from respiratory, nutritional services, wound care, psychology, etc. (Customize this to each patient). Given the patients complex condition and risk of further medical complications, rehabilitation services cannot be safely or effectively provided at a lower level of care such as a fdc facility. BARRIERS TO DISCHARGE: Advanced age ESTIMATED LOS: 7 days DISPOSITION: Home RELEVANT CHANGES SINCE PREADMISSION SCREENING: I have compared the patients medical and functional status at the time of the preadmission screening and there are: No changes PROGNOSIS: Good REHABILITATION GOALS: 1. PT and OT will focus on increasing ambulatory stamina with the use of assistive device while monitoring progress and OT will help increase independence in ADLs All the above goals were reviewed with the patient and he/she is in agreement. By signing this document, I acknowledge that I have personally performed a full physical examination on this patient within 24 hours of admission to this inpatient rehabilitation facility and have determined the patient to be able to tolerate the above course of treatment at an intensive level for a reasonable period of time. I will be completing a detailed individualized Plan of Care for this patient by day #4 of the patients stay based upon the Preadmission Screen, the Post-Admission Evaluation, and the therapy evaluations. Admission Dx/Comorbidities: (1) Osteoarthritis of right knee ICD Codes: M17.11 - Unilateral primary osteoarthritis, right knee (2) Paroxysmal A-fib Status: Chronic ICD Codes: I48.0 - Paroxysmal atrial fibrillation (3) HTN (hypertension) Status: Chronic ICD Codes: I10 - Essential (primary) hypertension Assessment/Plan Assessment and Plan Assess & Plan/Chief Complaint Assessment: s/p right knee replacement POD # 1 h/o SIVA s/p critical illness 09/2020 requiring right ureter stent for obstruction of uncertain etiology AF on Xarelto Valvular heart disease HTN with severe OOC status post op Hypothyroidism Presbycusis Plan: Inpatient rehab protocol Supportive care Monitor closely Bowel regimen Home meds DAYA VILLEGAS DO Jun 18, 2021 20:52
[2021-06-18] MEDS ORDERED: SENNA W/DOCUSATE (SENOKOT S) TABLET PO SCH (21:00)
[2021-06-18] MEDS: SENNA W/DOCUSATE (SENOKOT S) TABLET PO SCH (21:16)
[2021-06-18] MEDS: DOCUSATE SODIUM 100 MG (COLACE) CAP PO SCH (21:16)
[2021-06-18] MEDS: GABAPENTIN 100 MG (NEURONTIN) CAP PO SCH (21:17)
[2021-06-18] MEDS: polyethylene glycoL POWDER 17 GM (MIRALAX) PACK PO SCH (21:18)
[2021-06-18] MEDS: oxyCODONE/APAP 5/325MG (PERCOCET 5) TABLET PO PRN (21:18)
--- NOTE | 2021-06-19 05:55 | PM&R Progress Note ---
Subjective HPI/CC On Admission Date Seen by Provider: Jun 19, 2021 Time Seen by Provider: 11:30 Subjective/Events-last exam 06/19/21: Requiring oxygen Not dyspneic Confusion last night noted Vitals stable Fever noted but not uncommon for post op CXR normal and PCT and LA normal Reports her hands are numb which is not related to anything of her surgery She is difficult to obtain details from and noted low SLUMS score we identified Monitor closely Review of Systems General: Fatigue Musculoskeletal: leg pain Neurological: Confusion Focused Exam Lactate Level 06/19/21 12:00: Lactic Acid Level 0.77 Objective Exam Vital Signs Vital Signs Date Time Temp Pulse Resp B/P (MAP) Pulse Ox O2 Delivery O2 Flow Rate FiO2 06/20/21 01:37 94 OxyMask 10.00 06/19/21 20:00 38.0 68 23 162/68 (99) Capillary Refill : General Appearance: No Apparent Distress, WD/WN HEENT: PERRL/EOMI, Normal ENT Inspection, Pharynx Normal Neck: Full Range of Motion, Normal Inspection, Non Tender, Supple, Carotid Bruit Respiratory: Chest Non Tender, Lungs Clear, Normal Breath Sounds, No Accessory Muscle Use, No Respiratory Distress Cardiovascular: Regular Rate, Rhythm, No Edema, No Gallop, No JVD, No Murmur, Normal Peripheral Pulses Gastrointestinal: Normal Bowel Sounds, No Organomegaly, No Pulsatile Mass, Non Tender, Soft Back: Normal Inspection, No CVA Tenderness, No Vertebral Tenderness Extremity: Normal Capillary Refill, Normal Inspection, Normal Range of Motion (Decreased range of motion right leg), Non Tender, No Calf Tenderness, No Pedal Edema Neurologic/Psychiatric: Alert, Oriented x3, No Motor/Sensory Deficits, Normal Mood/Affect Skin: Normal Color, Warm/Dry Lymphatic: No Adenopathy Results/Procedures Lab Laboratory Tests 06/19/21 06:00 Patient resulted labs reviewed. FIM Transfers Therapy Code Descriptions/Definitions Functional Turner Measure: 0=Not Assessed/NA 4=Minimal Assistance 1=Total Assistance 5=Supervision or Setup 2=Maximal Assistance 6=Modified Turner 3=Moderate Assistance 7=Complete IndependenceSCALE: Activities may be completed with or without assistive devices. 4-Iyqtxwmotq-nrrqnhs completes the activity by him/herself with no assistance from a helper. 5-Set-up or Clean-up Assistance-helper sets up or cleans up; patient completes activity. Hatteras assists only prior to or following the activity. 4-Supervision or Touching Assistance-helper provides verbal cues and/or touching/steadying and/or contact guard assistance as patient completes activity. Assistance may be provided throughout the activity or intermittently. 3-Partial/Moderate Assistance-helper does LESS THAN HALF the effort. Hatteras lifts, holds or supports trunk or limbs, but provides less than half the effort. 2-Substantial/Maximal Assistance-helper does MORE THAN HALF the effort. Hatteras lifts or holds trunk or limbs and provides more than half the effort. 1-Plcvumbhy-hywhdx does ALL the effort. Patient does none of the effort to complete the activity. Or, the assistance of 2 or more helpers is required for the patient to complete the activity. If activity was not attempted, code reason: 7-Patient Refused. 9-Not Applicable-not attempted and the patient did not perform the activity before the current illness, exacerbation or injury. 10-Not Attempted due to Environmental Limitations-(lack of equipment, weather restraints, etc.). 88-Not Attempted due to Medical Conditions or Safety Concerns. Roll Left to Right (QC): 2 Sit to Lying (QC): 2 Sit to Stand (QC): 2 Chair/Feg-dq-Euqpx Xfer(QC): 3 Car Transfer (QC): 88 Gait Training Does the Patient Walk?: Yes Walk 10 feet (QC): 2 Walk 50 ft with 2 Turns(QC): 88 Walk 150 ft (QC): 88 Walking 10ft/uneven surface-QC: 88 Gait Assistive Device: FWW Wheelchair Training Does the Pt Use a Wheelchair?: Yes Distance: 30 Wheel 50 ft with 2 turns (QC): 88 Wheel 150 ft (QC): 88 Type of Wheelchair: Manual Stair Training #of Steps: 0 1 Step (curb) (QC): 88 4 Steps (QC): 88 12 Steps (QC): 88 Balance Picking up an Object (QC): 88 ADL-Treatment Eating (QC): 5 (set up) Oral Hygiene (QC): 7 Shower/Bathe Self (QC): 88 Upper Body Dressing (QC): 88 Lower Body Dressing (QC): 1 (OT threaded BLEs into pants, pt assisted with pul ling up onto legs. Assist x2 in stand, OT assisted with pant hike.) On/Off Footwear (QC): 1 (Total assist donning/doffing gripper socks. ) Toileting Hygiene (QC): 1 (Assist x2 in stand for clothing management.) Assessment/Plan Assessment and Plan Assess & Plan/Chief Complaint Assessment: s/p right knee replacement POD # 2 h/o SIVA s/p critical illness 09/2020 requiring right ureter stent for obstruction of un certain etiology AF on Xarelto Valvular heart disease HTN with severe OOC status post op Hypothyroidism Presbycusis Plan: Inpatient rehab protocol Supportive care Monitor closely Bowel regimen Home meds 06/19/21: Hypoxia monitored Workup negative (1) Osteoarthritis of right knee (2) Paroxysmal A-fib Status: Chronic (3) HTN (hypertension) Status: Chronic DAYA VILLEGAS DO Jun 19, 2021 05:55
--- NOTE | 2021-06-19 05:55 | Individualized Plan of Care ---
Individualized Plan of Care Rehab Nursing IPOC Order Admission Date Jun 18, 2021 at 13:40 Current Orders Orders Admission Arrival Bed Request (06/18/21 14:28) General/Regular (06/18/21 Dinner) Dressing Order (Intervention) DAILY (06/18/21:29) Incentive Spirometry (Nursing) Q2H (06/18/21:29) Mikie Narciso (06/18/21:29) Up To Chair (Order) DAILY PRN (06/18/21) Vital Signs: Every 4 Hours (Or (06/18/21:29) Aspirin Enteric Coated Tablet (Ecotrin T (06/19/21 09:00) Atorvastatin Tablet (Lipitor Tablet) (06/19/21 09:00) Furosemide Tablet (Lasix Tablet) (06/19/21 09:00) Gabapentin Capsule/Tablet (Neurontin Cap (06/18/21 21:00) Levothyroxine Tablet (Synthroid Tablet) (06/19/21 06:30) Therapeutic Multivitamin Tab (Vitamins, (06/19/21 07:00) Ondansetron Injection (Zofran Injectio (06/18/21 19:30) Potassium Chloride (Tablet) (Klor Con Ta (06/19/21 08:00) Rivaroxaban Tablet (Xarelto Tablet) (06/19/21 08:00) Senna S Tablet (Senokot S Tablet) (06/18/21 21:00) Carvedilol Tablet (Coreg Tablet) (06/18/21 21:00) Clonidine Tablet (Catapres Tablet) (06/18/21 19:30) Diltiazem Cd 24 Hr Capsule (Cardizem Cd (06/19/21 09:00) Diphenhydramine Injection (Benadryl Inje (06/18/21 19:30) Hydralazine Tablet (Apresoline Tablet) (06/18/21 19:30) Oxycodone/Apap 5/325mg Tablet (Percocet (06/18/21 19:30) Request Pt Additional Orders (06/18/21:29) Admission Order(Inpt,Obs,Sdc) (06/18/21:29) Vital Signs: Per Unit Policy ( 08,16,00 (06/18/21:29) Seat Cover Cutter-Inpt Rehab Con (06/18/21:29) Rehab Nursing Orders-Ipoc (06/18/21:) Physical Therapy Rehab Orders (06/18/21:) Occupational Therapy Rehab Ord (06/18/21:29) Speech Therapy Rehab Orders (06/18/21:) Cbc With Automated Diff (06/19/21 06:00) Comprehensive Metabolic Panel (06/19/21 06:00) Precautions (Aru) (06/18/21:) Rehab-Intensity Of Therapy (06/18/21:) Initiate Admission Nursing Pro .admission (06/18/21:) Alprazolam Tablet (Xanax Tablet) (06/18/21:30) Calcium Carbonate Chew Tablet (Antacid C (06/18/21:30) Diphenhydramine Tablet (Benadryl Tablet) (06/18/21:30) Docusate Sodium Capsule (Colace Capsule) (06/18/21 21:00) Docusate Sodium Capsule (Colace Capsule) (06/18/21:30) Bisacodyl Suppository (Dulcolax Supposit (06/18/21:30) Lactulose Oral Solution (Enulose Oral So (06/18/21:30) Na Phos/Na Biphos Enema (Fleet Enema Hunter (06/18/21:30) Guaifenesin/Codeine Syrup (Robitussin Ac (06/18/21:) Loperamide Tablet (Imodium Tablet) (06/18/21:30) Melatonin Tablet (Melatonin Tablet) (06/18/21:30) Polyethylene Glycol Powder Pkt (Miralax (06/18/21 21:00) Ondansetron Oral Dissolve Tab (Zofran (06/18/21:30) Senna S Tablet (Senokot S Tablet) (06/18/21 21:00) Code/Resuscitation (06/18/21:29) Initiate Admission Nursing Pro .admission (06/18/21:) Acetaminophen Tablet/Caplet (Tylenol T (06/19/21 06:00) Patient Visit (06/18/21 ) Pt Eval Moderate Complexity (06/18/21 ) Patient Visit (06/18/21 ) Functional Activities, Ea 15 (06/18/21 ) Ex Neuromuscular, Ea 15 Min (06/18/21 ) Patient Visit (06/19/21 ) Speech Sound Lang Comp (06/19/21 ) Treat. Speech/Lang/Voice (06/19/21 ) Procalcitonin (Pct) (06/19/21 11:40) Lactic Acid Analyzer (06/19/21 11:40) Chest 1 View, Ap/Pa Only (06/19/21 11:40) Patient Visit (06/19/21 ) Gait Training, Ea 15 Min (06/19/21 ) Wheelchair Mgmt/Propulsn 15min (06/19/21 ) Functional Activities, Ea 15 (06/19/21 ) Mat Initiate Protocol (06/19/21 20:04) Albuterol/Ipra Inhalation Soln (Duoneb I (06/19/21 20:15) Svn Small Volume Nebulizer (06/19/21 20:04) Ziprasidone Injection (Geodon Injection) (06/19/21 21:15) Water (Sterile) For Injection (Sterile W (06/19/21 21:15) Lorazepam Injection (Ativan Injection) (06/19/21 21:15) Olanzapine Tablet (Zyprexa Tablet) (06/19/21 22:30) Rehab Nursing Orders: Ongoing Assess. of Cognitive Status, Ongoing Assess. of Function Status, Bladder Management, Bladder Scan, Bladder Training, Bowel Management, Bowel Training, Disease Management & Educaiton, DVT Prophylaxis, Fall Prevention, Fluid/Electrolyte/Nutrition Mgmt, Infection Prevention, Medication Management & Education, Management of Risks & Complications, Man agement of Skin Intergrity, Nutrition Management, Pain Management, Patient/Family Support, Safety Management, Wound Management Intensity of Therapy to be met Patient to be seen: Min.3h per day/5 of 7d PT IPOC Problem List: Activity Tolerance, Functional Strength, Safety, Balance, Gait, Transfer, Bed Mobility, ROM Treatment Plan: Continue Plan of Care Bed Mobility, Education, Functional Activity Gilda, Functional Strength, Group Therapy, Gait, Safety, Therapeutic Exercise, Transfers Treatment Duration: Aug 05, 2021 Frequency: At least 5 of 7 days/Wk (IRF) Estimated Hrs Per Day: 1.5 hours per day OT IPOC Problems: Decreased Activ Tolerance, Decreased Safety Aware, Decreased UE Strength, Dependent Transfers, Impaired Bed Mobility, Impaired Cognition, Impaired Funct Balance, Impaired I ADL's, Impaired Self-Care Skills OT Treatment, Training and Edu: Yes Plan of Care: ADL Retraining, Functional Mobility, Group Exercise/Act as Ind, UE Funct Exercise/Act Treatment Duration: Jul 17, 2021 Frequency: At least 5 of 7 days/Wk (IRF) Estimated Hrs Per Day: 1.[address] IPOC Speech Therapy Treatment Plan: Continue Plan of Care Treatment Duration: Jun 19, 2021 Frequency: Modified Program (IRF) Estimated Hrs Per Day: Other Seat Cover Cutter/Case Mgmt Seat Cover Cutter/Case Managemen: Discharge Planning Dietitian/Software Applications Engineer Dietitian/Software Applications Engineer to monitor nutritional status and make changes and/or recommendations as needed and work with speech pathology on dietary upgrades as the occur. Physician IPOC Medical Issues being managed closely and that require the 24 hour availability of a physician: Recent surgery with confusion and new hypoxia will need close monitoring for any complications from elective surgery Medical Issues: Bowel/Bladder Function, DVT Prophylaxis, Falls Precautions, Fluid/Electrolyte/Nutrition Balance, Infection Protection, Pain Management, Wound Care Brief Synthesis of Preadmission Screen, Post-Admission Evaluation, and Therapy Evaluations: PT OT will focus on regaining function to return home with good ambulatory skills and ADL's Medical Prognosis: Good Anticipated Length of Stay: 7 days DAYA VILLEGAS DO Jun 19, 2021 05:55
[2021-06-19] MEDS ORDERED: ACETAMINOPHEN 325 MG TABLET PO PRN (06:00)
[2021-06-19 06:10] LABS: BASOPHILS % (AUTO) 0 % (0-10); EOSINOPHILS # (AUTO) 0.2 10^3/uL (0.0-0.3); EOSINOPHILS % (AUTO) 2 % (0-10); HEMATOCRIT 28 % (35-52); HEMOGLOBIN 8.6 g/dL (11.5-16.0); LYMPHOCYTES # (AUTO) 1.1 10^3/uL (1.0-4.0); LYMPHOCYTES % (AUTO) 12 % (12-44); MEAN CORPUSCULAR HEMOGLOBIN 30 pg (25-34); MEAN CORPUSCULAR HGB CONC 31 g/dL (32-36); MEAN CORPUSCULAR VOLUME 96 fL (80-99); MEAN PLATELET VOLUME 9.7 fL (9.0-12.2); MONOCYTES # (AUTO) 1.1 10^3/uL (0.0-1.0); MONOCYTES % (AUTO) 12 % (0-12); NEUTROPHILS # (AUTO) 6.6 10^3/uL (1.8-7.8); NEUTROPHILS % (AUTO) 73 % (42-75); PLATELET COUNT 183 10^3/uL (130-400); WHITE BLOOD COUNT 9.1 10^3/uL (4.3-11.0)
[2021-06-19 06:20] LABS: ALBUMIN 3.2 GM/DL (3.2-4.5)
[2021-06-19 06:21] LABS: CALCIUM 8.5 MG/DL (8.5-10.1)
[2021-06-19 06:23] LABS: TOTAL PROTEIN 5.7 GM/DL (6.4-8.2)
[2021-06-19 06:24] LABS: BILIRUBIN,TOTAL 0.7 MG/DL (0.1-1.0)
[2021-06-19 06:26] LABS: CREATININE SERUM 1.15 MG/DL (0.60-1.30)
[2021-06-19] MEDS ORDERED: LEVOTHYROXINE 75 MCG (LEVOTHROID) TABLET PO SCH (06:30)
[2021-06-19] MEDS ORDERED: MULTIVIT W/MINERALS TAB (THERAGRAN M) PO SCH (07:00)
--- NOTE | 2021-06-19 07:06 | Progress Note ---
Standard Progress Note Progress Notes/Assess & Plan Date Seen by a Provider: Jun 19, 2021 Time Seen by a Provider: 07:05 Progress/Assessment & Plan patient somewhat lethargic Vital Signs Date Time Temp Pulse Resp B/P (MAP) Pulse Ox O2 Delivery O2 Flow Rate FiO2 06/19/21 06:31 37.8 06/18/21 21:57 37.0 06/18/21 21:18 37.0 06/18/21 21:00 97 Nasal Cannula 3.00 06/18/21 20:00 37.0 68 16 147/65 (92) 97 06/18/21 15:45 Nasal Cannula 3.00 06/18/21 14:34 36.8 62 20 121/60 (80) 91 3.00 Laboratory Tests Test 06/19/21 06:00 Range/Units White Blood Count 9.1 4.3-11.0 10^3/uL Red Blood Count 2.86 L 3.80-5.11 10^6/uL Hemoglobin 8.6 L 11.5-16.0 g/dL Hematocrit 28 L 35-52 % Mean Corpuscular Volume 96 80-99 fL Mean Corpuscular Hemoglobin 30 25-34 pg Mean Corpuscular Hemoglobin Concent 31 L 32-36 g/dL Red Cell Distribution Width 14.0 10.0-14.5 % Platelet Count 183 130-400 10^3/uL Mean Platelet Volume 9.7 9.0-12.2 fL Immature Granulocyte % (Auto) 0 % Neutrophils (%) (Auto) 73 42-75 % Lymphocytes (%) (Auto) 12 12-44 % Monocytes (%) (Auto) 12 0-12 % Eosinophils (%) (Auto) 2 0-10 % Basophils (%) (Auto) 0 0-10 % Neutrophils # (Auto) 6.6 1.8-7.8 10^3/uL Lymphocytes # (Auto) 1.1 1.0-4.0 10^3/uL Monocytes # (Auto) 1.1 H 0.0-1.0 10^3/uL Eosinophils # (Auto) 0.2 0.0-0.3 10^3/uL Basophils # (Auto) 0.0 0.0-0.1 10^3/uL Immature Granulocyte # (Auto) 0.0 0.0-0.1 10^3/uL Sodium Level 136 135-145 MMOL/L Potassium Level 4.0 3.6-5.0 MMOL/L Chloride Level 102 98-107 MMOL/L Carbon Dioxide Level 25 21-32 MMOL/L Anion Gap 9 5-14 MMOL/L Blood Urea Nitrogen 23 H 7-18 MG/DL Creatinine 1.15 0.60-1.30 MG/DL Estimat Glomerular Filtration Rate 45 BUN/Creatinine Ratio 20 Glucose Level 110 H 70-105 MG/DL Calcium Level 8.5 8.5-10.1 MG/DL Corrected Calcium 9.1 8.5-10.1 MG/DL Total Bilirubin 0.7 0.1-1.0 MG/DL Aspartate Amino Transf (AST/SGOT) 19 5-34 U/L Alanine Aminotransferase (ALT/SGPT) 11 0-55 U/L Alkaline Phosphatase 71 40-136 U/L Total Protein 5.7 L 6.4-8.2 GM/DL Albumin 3.2 3.2-4.5 GM/DL RLE--incision clean and dry. No calf tenderness s/p RTKA mobilize as able ZO NEGRETE MD Jun 19, 2021 07:06
[2021-06-19] MEDS: SENNA W/DOCUSATE (SENOKOT S) TABLET PO SCH ×2 (07:30→20:44)
[2021-06-19] MEDS: oxyCODONE/APAP 5/325MG (PERCOCET 5) TABLET PO PRN ×5 (07:30→20:44)
[2021-06-19] MEDS: DOCUSATE SODIUM 100 MG (COLACE) CAP PO SCH ×2 (07:32→20:43)
[2021-06-19] MEDS: GABAPENTIN 100 MG (NEURONTIN) CAP PO SCH ×2 (07:34→20:43)
[2021-06-19 07:51] VITALS: BP 151/67
[2021-06-19] MEDS ORDERED: KCL 10 MEQ TAB (MICRO K) PO SCH (08:00)
[2021-06-19] MEDS ORDERED: RIVAROXABAN 20 MG TABLET (XARELTO) PO SCH (08:00)
[2021-06-19] MEDS ORDERED: FUROSEMIDE 20 MG (LASIX) TAB PO SCH (09:00)
[2021-06-19] MEDS ORDERED: ASPIRIN E.C. 81 MG (ECOTRIN) TAB PO SCH (09:00)
--- NOTE | 2021-06-19 09:48 | ST Cognitive Linguistic Eval ---
Speech Evaluation-General Medical Diagnosis Right TKA Onset Date: Jun 17, 2021 Therapy Diagnosis Therapy Diagnosis: Cognitive-communication Referral Referring Physician: Dr. Portillo Medical History Pertinent Medical History: Atrial Fib, HTN Reviewed History: No Social History Current Living Status: Spouse Speech PLF-Current Status Prior Level of Function Patient lives at home with her where he assists her with her daily needs. Subjective Patient was pleasant and cooperative with the cognitive assessment. She was lethargic, however she alerted to her name and was able to participate. Language Eval: Auditory Comprehends Simple Yes/No Ques: Functional Indent/Objects Multiple [place]: Functional Ident/Pics in Multiple [place]: Functional Follows 1-Step Commands: Mild Follows Complex Directions: Moderate Follows General Conversations: Mild Language Eval: Verbal Language Completes Spontaneous Greeting: Functional Produces Auto, Serial Info: Mild Imitates Simple Words/Phrases: Functional Word Finding: Mild Requests Basic Needs: Functional States Basic Personal Info: Functional Expresses Complex Ideas: Moderate Objective Cognitive Domain Attention: Moderate Memory: Mild Problem Solving: Mild Executive Functions: Mild Visuospatial Skills: Mild Composite Severity Rating: Mild Clock Drawing Severity Rating: Mild Objective Formal/Standardized Tests [facility] Mental Status (UMS) Results 22/30, Mild Neurocognitive Disorder range of function Oral Motor/Speech Production Within Normal Limits Impression Patient is a pleasant 80 y/o female who was admitted to the ARU s/p right knee replacement surgery. Patient is lethargic, requiring frequent verbal and/or tactile cues to engage. She was given the SLUMS at bedside with a score of 22/30 which is within the low MNCD range. Patient's score indicates a need for further ST services. ST will focus on safety awareness and memory for a safe return home. Her assists her with her daily needs. Speech-Plan Treatment Plan Rehab Potential: ESTEBAN Durand Jun 19, 2021 09:48
--- NOTE | 2021-06-19 09:51 | ST Cognitive Linguistic Eval ---
Speech Evaluation-General Medical Diagnosis Right TKA Onset Date: Jun 17, 2021 Therapy Diagnosis Therapy Diagnosis: Cognitive-communication Referral Referring Physician: Dr. Portillo Medical History Pertinent Medical History: Atrial Fib, HTN Social History Current Living Status: Spouse Speech PLF-Current Status Prior Level of Function Patient lived at home with her who assists her with her daily needs. Subjective Patient was pleasant and cooperative with the cognitive assessment. The patient was lethargic, however she would alert to her name and was able to participate. Language Eval: Auditory Comprehends Simple Yes/No Ques: Functional Indent/Objects Multiple [place]: Functional Ident/Pics in Multiple [place]: Functional Follows 1-Step Commands: Mild Follows Complex Directions: Moderate Follows General Conversations: Mild Language Eval: Verbal Language Completes Spontaneous Greeting: Functional Produces Auto, Serial Info: Mild Imitates Simple Words/Phrases: Functional Word Finding: Mild Requests Basic Needs: Functional States Basic Personal Info: Functional Expresses Complex Ideas: Moderate Objective Cognitive Domain Attention: Moderate Memory: Mild Problem Solving: Mild Executive Functions: Mild Visuospatial Skills: Mild Composite Severity Rating: Mild Clock Drawing Severity Rating: Mild Objective Formal/Standardized Tests [facility] Mental Status ([facility]) Results 22/30, Mild Neurocognitive Disorder range of function Oral Motor/Speech Production Within Normal Limits Impression Patient is a pleasant 80 y/o female who was admitted to the ARU s/p right knee replacement surgery on 06/17/21. The patient was given the SLUMS at bedside with a score of 22/30 obtained. This score is the lower end of the MNCD range of function which indicates the need for further ST services. The patient will receive ST with focus on safety awareness and memory for a safer return home. Speech Patient Assess Expression of Ideas/Wants: Frequently (2) Understanding Verbal Content: Usually Understands (3) Brief Interview-Mental Status: Yes Repetition of Three Words: Two (2) Temporal Orientation: Year: Correct (3) Temporal Orientation: Month: Accurate within 5 days(2) Temporal Orientation: Day: Correct (1) Recall : Wear to say "Sock": No, could not recall (0) Recall : Color: No, could not recall (0) Recall : Bed: No, could not recall (0) Memory/Recall Ability: Current season, That he or she is in a hsp/hsp unit Speech Short Term Goals Short Term Goals Short Term Goals 1) The patient will complete memory tasks related to her return home at 80% or greater with minimal cues. 2) The patient will complete safety awareness tasks related to her return home at 80% or greater with minimal cues. 3) The patient will complete problem solving tasks related to her return home at 80% or greater with minimal cues. Speech Timers Inspector Goals Penitentiary Goals Patient will improve functional abilities in order to improve independence and safety with decreased need for assistance. Speech-Plan Patient/Family Goals Patient/Family Goals: Patient plans on returning to her home where she lives with her . Treatment Plan Speech Therapy Treatment Plan: Continue Plan of Care Treatment Duration: Jul 03, 2021 Frequency: 4 times per week (Patient will receive skilled ST 4-5x per week) Estimated Hrs Per Day: .5 hour per day Rehab Potential: Fair Barriers to Learning: Cognitive deficits, age Pt/Family Agrees to Plan: Yes Safety Risks/Education Teaching Recipient: Patient, Significant Other Teaching Methods: Discussion Response to Teaching: Verbalize Understanding Education Topics Provided: Safety within her room and communication of wants/needs Time Speech Therapy Time In: 09:30 Speech Therapy Time Out: 10:00 Total Billed Time: 30 Billed Treatment Time 1, PATRICIA CROWELL [address] [address] Jun 19, 2021 09:51
--- NOTE | 2021-06-19 12:01 | Physical Therapy Daily Note ---
PT Daily Note-Current Subjective Pt in bed upon arrival and agrees to co-treat. Pt states pain in R knee, doesn't rate out of 10. Pt very confused and lethargic first half of tx, second half able to complete one step commands and answer simple questions Mental Status Patient Orientation: Person, Confused Transfers SCALE: Activities may be completed with or without assistive devices. 3-Ncnzmkwzry-zqxzaha completes the activity by him/herself with no assistance from a helper. 5-Set-up or Clean-up Assistance-helper sets up or cleans up; patient completes activity. [place] assists only prior to or following the activity. 4-Supervision or Touching Assistance-helper provides verbal cues and/or touching/steadying and/or contact guard assistance as patient completes activity. Assistance may be provided throughout the activity or intermittently. 3-Partial/Moderate Assistance-helper does LESS THAN HALF the effort. [place] lifts, holds or supports trunk or limbs, but provides less than half the effort. 2-Substantial/Maximal Assistance-helper does MORE THAN HALF the effort. [place] lifts or holds trunk or limbs and provides more than half the effort. 2-Vsdeprhpv-rowhcg does ALL the effort. Patient does none of the effort to complete the activity. Or, the assistance of 2 or more helpers is required for the patient to complete the activity. If activity was not attempted, code reason: 7-Patient Refused. 9-Not Applicable-not attempted and the patient did not perform the activity before the current illness, exacerbation or injury. 10-Not Attempted due to Environmental Limitations-(lack of equipment, weather restraints, etc.). 88-Not Attempted due to Medical Conditions or Safety Concerns. Roll Left & Right (QC): 2 Lying to Sitting/Side of Bed(Q: 2 Sit to Stand (QC): 3 Chair/Qjj-xb-Voyen Xfer(QC): 3 Weight Bearing Right Lower Extremity: Right Weight Bearing/Tolerated Gait Training Does the Patient Walk?: Yes Distance: 6' x3 Gait Persons Needed: 1 Gait Assistive Device: Parallel Bars Pt amb in // bars x3, first bout pt has slow, shuffling gait and would occasionally drag R LE. Second two bouts had even steps with R LE clearance Wheelchair Training Does the Pt Use a Wheelchair?: Yes Wheel 50 ft with 2 turns (QC): 3 Type of Wheelchair: Manual Pt propels WC 100' with Max VC for turns and to keep in straight line. Adeline given for turns Treatments Use of two skilled clinicians d/t pt poor mobility, weakness, confusion, impulsiveness, safety, and decrease risk of falls. OT focused on bathing, dressing, and UE placement/sequencing. PT focused on transfers, mobility, gait, and LE positioning. Pt in bed w/ polar pack, instructed on bed mobility. Pt lethargic and required Max stimuli for response. Once more awake, pt sits EOB and completes bed bath (see OT note). During bathing, pt unable to support self. PT ModA to keep pt upright. Pt then sit <> stand ModA to clean bottom and don pants, then SPT to . pt propels WC to therapy gym and enters // bars. Pt sit to stand x3 with Adeline, each time standing with no verbal warning she was going to stand. Pt amb 6' x3 with Adeline. Pt returns to and is propelled to room. Pt transfers to recliner w/ FWW and Adeline. When backing to chair, pt plops without warning and sits on the edge of the chair. Pt able to scoot self back, polar pack placed on pt and reviewed instructions for IS. Pt remains in recliner with nursing in room, all needs met and call light in hand. Assessment Current Status: Fair Progress Encouragement and Max VC required to keep pt focused and awake during tx PT Short Term Goals Short Term Goals Time Frame: Jun 25, 2021 Roll Left & Right: 4 Sit to lyin Lying to sitting on side of be: 4 Sit to stand: 4 Chair/zyn-so-mpoga transfer: 4 Toilet transfer: 4 Car transfer: 4 Walk 10 feet: 3 Walk 50 feet with two turns: 3 Walk 150 feet: 3 Walking 10ft on uneven surface: 3 Does pt use a wc or scooter: Yes Wheel 50ft w/2 turns: 4 Wheel 150 feet: 4 Type: Manual PT Digitizer Goals Digitizer Goals PT [facility] Goals Time Frame: Jul 22, 2021 Roll Left & Right (QC): 5 Sit to Lying (QC): 5 Lying-Sitting on Side/Bed(QC): 5 Sit to Stand (QC): 5 Chair/Ehx-vt-Ktomh Xfer(QC): 5 Toilet Transfer (QC): 5 Car Transfer (QC): 5 Does the Patient Walk: Yes Walk 10 feet (QC): 4 Walk 50ft with 2 Turns (QC): 4 Walk 150 ft (QC): 4 Walking 10ft on Uneven Surface: 4 1 Step (curb) (QC): 3 4 Steps (QC): 3 12 Steps (QC): 3 Picking up an Object (QC): 4 Does the Pt use WC or Scooter?: Yes Wheel 50 feet with 2 turns (QC: 5 Type: Manual Wheel 150 feet: 5 Type: Manual PT Plan Problem List Problem List: Activity Tolerance, Functional Strength, Safety, Transfer Treatment/Plan Treatment Plan: Continue Plan of Care Treatment Plan: Bed Mobility, Education, Functional Activity Gilda, Functional Strength, Group Therapy, Gait, Safety, Therapeutic Exercise, Transfers Treatment Duration: Aug 05, 2021 Frequency: At least 5 of 7 days/Wk (IRF) Estimated Hrs Per Day: 1.5 hours per day Patient and/or Family Agrees t: Yes Safety Risks/Education Teaching Recipient: Patient Teaching Methods: Discussion Response to Teaching: Verbalize Understanding, Reinforcement Needed Time/GCodes Time In: 1045 Time Out: 1200 Total Billed Treatment Time: 75 Total Billed Treatment 1, GT, WCH x2, FA x2 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
--- NOTE | 2021-06-19 12:03 | Occupational Ther Daily Note ---
OT Current Status-Daily Note Subjective Pt in bed, agreeable to therapy but states she is hurting. Pt did not provide pain rating. Mental Status/Objective Patient Orientation: Person, Confused Attachments: Oxygen (3L), Polar Pack ADL-Treatment Therapy Code Descriptions/Definitions Functional Tama Measure: 0=Not Assessed/NA 4=Minimal Assistance 1=Total Assistance 5=Supervision or Setup 2=Maximal Assistance 6=Modified Tama 3=Moderate Assistance 7=Complete IndependenceSCALE: Activities may be completed with or without assistive devices. 8-Hpujrhpjpn-ngzkqoy completes the activity by him/herself with no assistance from a helper. 5-Set-up or Clean-up Assistance-helper sets up or cleans up; patient completes activity. [place] assists only prior to or following the activity. 4-Supervision or Touching Assistance-helper provides verbal cues and/or touching/steadying and/or contact guard assistance as patient completes activit y. Assistance may be provided throughout the activity or intermittently. 3-Partial/Moderate Assistance-helper does LESS THAN HALF the effort. [place] lifts, holds or supports trunk or limbs, but provides less than half the effort. 2-Substantial/Maximal Assistance-helper does MORE THAN HALF the effort. [place] lifts or holds trunk or limbs and provides more than half the effort. 7-Sjjsevdys-vrctmj does ALL the effort. Patient does none of the effort to complete the activity. Or, the assistance of 2 or more helpers is required for the patient to complete the activity. If activity was not attempted, code reason: 7-Patient Refused. 9-Not Applicable-not attempted and the patient did not perform the activity before the current illness, exacerbation or injury. 10-Not Attempted due to Environmental Limitations-(lack of equipment, weather restraints, etc.). 88-Not Attempted due to Medical Conditions or Safety Concerns. Oral Hygiene (QC): 4 (based on clincial judgment, SBA) Shower/Bathe Self (QC): 1 (assist x2 in stand to wash buttocks. Pt able to wash chest/abdomen, UEs, periarea, assistance provided with BLEs, and buttocks.) Upper Body Dressing (QC): 3 (Assistance required for sitting balance, pt able to don/doff shirt.) Lower Body Dressing (QC): 1 (assist x2 in stand for pant hike. Assistance th reading over BLEs, pt assisted with pulling up her legs and assisted with R pant hike. OT performed L pant hike.) On/Off Footwear: 1 Other Treatment OT/PT cotreat due to skill of 2 clinicians required in order to coordinate UE/LEs, decrease fall risk, and due to pt's limitations in strength, mobility, activity tolerance, cognition. OT focused on ADLs, UE placement, cues for sequencing and safety, PT focused on LE placement, gross overall movement, and mobility/transfers. Pt transferred supine to sit EOB, completed sponge bath and dressing, then transferred to w/c. Pt propelled w/c to therapy gym, taken into parallel bars. Pt performed functional mobility x3 in //, requiring cues for UE positioning and cues to push through her arms to stand up straight. Pt taken back to her room, transferred to recliner. Polar pack placed on RLE. Post tx, pt in recliner, call light in reach and all needs met. Pt slightly impulsive throughout session, attempting to stand without warning. She required frequent cues to stay on task. During EOB task, pt required mod A to maintain sitting balance. Mod A sit to/from stand during LE dressing. In parallel bars, min A sit to/from stand, min A ambulation in //. Max VCs for w/c mobility. Education OT Patient Education: Correct positioning, Energy conservation, Exercise program, Modified ADL techniques, Progress toward Goal/Update tx plan, Purpose of tx/functional activities, Rehab process, Safety issues Teaching Recipient: Patient Teaching Methods: Discussion OT Short Term Goals Short Term Goals Time Frame: Jul 01, 2021 Toileting hygiene: 4 Shower/bathe self: 4 Upper body dressin Lower body dressin Putting on/taking off footwear: 4 OT Commissioner Of Officials Goals Commissioner Of Officials Goals Time Frame: Jul 17, 2021 Eating (QC): 6 Oral Hygiene (QC): 6 Toileting Hygiene (QC): 6 Shower/Bathe Self (QC): 6 Upper Body Dressing (QC): 6 Lower Body Dressing (QC): 6 On/Off Footwear (QC): 6 Additional Goals: 1-Demonstrate ADL Tasks, 2-Verbalize Understanding, 3- ImproveStrength/Gilda 1=Demonstrate adherence to instructed precautions during ADL tasks. 2=Patient will verbalize/demonstrate understanding of assistive devices/modifications for ADL. 3=Patient will improve strength/tolerance for activity to enable patient to perform ADL's. OT Education/Plan Problem List/Assessment Assessment: Decreased Activ Tolerance, Decreased Safety Aware, Decreased UE Strength, Impaired Bed Mobility, Impaired Cognition, Impaired Funct Balance, Impaired I ADL's, Impaired Self-Care Skills Discharge Recommendations Plan/Recommendations: Continue POC Treatment Plan/Plan of Care Patient would benefit from OT for education, treatment and training to promote independence in ADL's, mobility, safety and/or upper extremity function for ADL's. Plan of Care: ADL Retraining, Functional Mobility, Group Exercise/Act as Ind, UE Funct Exercise/Act Treatment Duration: Jul 17, 2021 Frequency: At least 5 of 7 days/Wk (IRF) Estimated Hrs Per Day: 1.5 hours per day Rehab Potential: Fair Time/GCodes Start Time: 10:45 Stop Time: 12:00 Total Time Billed (hr/min): 75 Billed Treatment Time [place] x75' 1, ADL (20'), FA 4 (55') DOUG BRINK OT Jun 19, 2021 12:03
--- NOTE | 2021-06-19 12:42 | Diagnostic Imaging Report ---
INDICATION: Shortness of breath. History of cardiac disease. COMPARISON: 10/07/2020 chest. FINDINGS: Portable chest shows lungs to be well aerated. There are no infiltrates. There is cardiomegaly. No evidence of pulmonary edema. No pneumothorax or pleural effusion. Pacemaker on the left and implanted monitor tech remain unchanged. IMPRESSION: Cardiomegaly with no acute changes. Dictated by: Dictated on workstation # [id number]
[2021-06-19] MEDS: polyethylene glycoL POWDER 17 GM (MIRALAX) PACK PO SCH ×2 (13:47→21:39)
[2021-06-19 20:00] VITALS: BP 162/68
[2021-06-19] MEDS ORDERED: RT-ALBUTEROL/IPRATROPIUM 3 ML (DUONEB) VIAL INH PRN (20:15)
[2021-06-19] MEDS ORDERED: WATER (STERILE) FOR INJ 10 ML BTL INJ SCH (21:15)
[2021-06-19] MEDS ORDERED: ZIPRASIDONE 20 MG INJ (GEODON) VIAL IM PRN (21:15)
[2021-06-19] MEDS ORDERED: LORazepam INJ 2 MG/ML (ATIVAN) VIAL IM PRN (21:15)
[2021-06-19] MEDS ORDERED: OLANZapine 2.5 MG (ZyPREXA) TAB PO ONE (22:30)
--- NOTE | 2021-06-20 06:07 | Discharge Summary ---
Diagnosis/Chief Complaint Date of Admission Jun 18, 2021 at 13:40 Date of Discharge Discharge Date: Jun 20, 2021 Discharge Diagnosis Assessment: Acute respiratory distress PNA on CXR today and PCT elevated but negative the day before with CXR and PCT normal Elevated BNP acute on chronic CHF Pacemaker AF OAC disrupted due to ortho surgery so required CT angiogram to r/o PE Dementia? SLUMS Advanced age s/p right knee replacement POD # 3 h/o SIVA s/p critical illness 09/2020 requiring right ureter stent for obstruction of uncertain etiology Valvular heart disease HTN with severe OOC status post op Hypothyroidism Presbycusis Plan: IV abx O2 Cards consult EICU consult OAC Discharge Summary Discharge Physical Examination Allergies: Coded Allergies: Penicillins (Verified Allergy, Unknown, 06/17/21) pineapple (Verified Allergy, Unknown, 06/17/21) Vitals & I&Os Vital Signs Date Time Temp Pulse Resp B/P (MAP) Pulse Ox O2 Delivery O2 Flow Rate FiO2 06/20/21 01:37 94 OxyMask 10.00 06/19/21 20:00 38.0 68 23 162/68 (99) Hospital Course Was the Problem List Reviewed?: Yes Short course after admitted to IRF but soon after arrival she required new oxygen supplement. Patient continued to progress with hypoxia and CXR and septic w/u was negative on Tuesday including PCT even though lungs did have crackles lower lobes. 14 liters of O2 required so patient was sent to ICU and CXR revealed PNA. Labs (last 24 hrs) Laboratory Tests 06/19/21 06:00: White Blood Count 9.1, Red Blood Count 2.86L, Hemoglobin 8.6L, Hematocrit 28L, Mean Corpuscular Volume 96, Mean Corpuscular Hemoglobin 30, Mean Corpuscular Hemoglobin Concent 31L, Red Cell Distribution Width 14.0, Platelet Count 183, Mean Platelet Volume 9.7, Immature Granulocyte % (Auto) 0, Neutrophils (%) (Auto) 73, Lymphocytes (%) (Auto) 12, Monocytes (%) (Auto) 12, Eosinophils (%) (Auto) 2, Basophils (%) (Auto) 0, Neutrophils # (Auto) 6.6, Lymphocytes # (Auto) 1.1, Monocytes # (Auto) 1.1H, Eosinophils # (Auto) 0.2, Basophils # (Auto) 0.0, Immature Granulocyte # (Auto) 0.0, Sodium Level 136, Potassium Level 4.0, Chloride Level 102, Carbon Dioxide Level 25, Anion Gap 9, Blood Urea Nitrogen 23H, Creatinine 1.15, Estimat Glomerular Filtration Rate 45, BUN/Creatinine Ratio 20, Glucose Level 110H, Calcium Level 8.5, Corrected Calcium 9.1, Total Bilirubin 0.7, Aspartate Amino Transf (AST/SGOT) 19, Alanine Aminotransferase (ALT/SGPT) 11, Alkaline Phosphatase 71, Total Protein 5.7L, Albumin 3.2, Procalcitonin 0.05 06/19/21 12:00: Lactic Acid Level 0.77 Pending Labs Laboratory Tests 06/19/21 06:00: White Blood Count 9.1, Red Blood Count 2.86, Hemoglobin 8.6, Hematocrit 28, Mean Corpuscular Volume 96, Mean Corpuscular Hemoglobin 30, Mean Corpuscular Hemoglobin Concent 31, Red Cell Distribution Width 14.0, Platelet Count 183, Mean Platelet Volume 9.7, Immature Granulocyte % (Auto) 0, Neutrophils (%) (Auto) 73, Lymphocytes (%) (Auto) 12, Monocytes (%) (Auto) 12, Eosinophils (%) (Auto) 2, Basophils (%) (Auto) 0, Neutrophils # (Auto) 6.6, Lymphocytes # (Auto) 1.1, Monocytes # (Auto) 1.1, Eosinophils # (Auto) 0.2, Basophils # (Auto) 0.0, Immature Granulocyte # (Auto) 0.0, Sodium Level 136, Potassium Level 4.0, Chloride Level 102, Carbon Dioxide Level 25, Anion Gap 9, Blood Urea Nitrogen 23, Creatinine 1.15, Estimat Glomerular Filtration Rate 45, BUN/Creatinine Ratio 20, Glucose Level 110, Calcium Level 8.5, Corrected Calcium 9.1, Total Bilirubin 0.7, Aspartate Amino Transf (AST/SGOT) 19, Alanine Aminotransferase (ALT/SGPT) 11, Alkaline Phosphatase 71, Total Protein 5.7, Albumin 3.2, Procalcitonin 0.05 06/19/21 12:00: Lactic Acid Level 0.77 Discharge Home Medications: Active Scripts Active Reported Xarelto (Rivaroxaban) 20 Mg Tablet 20 Mg PO DAILY K-Tab ER (Potassium Chloride) 10 Meq Tablet.er 20 Meq PO DAILY TAKE 2 (10MEQ) TABS Carvedilol 12.5 Mg Tablet 12.5 Mg PO BID Atorvastatin Calcium 20 Mg Tablet 20 Mg PO DAILY Dilt-Xr (Diltiazem HCl) 240 Mg Cap.er.deg 240 Mg PO DAILY Gabapentin 100 Mg Capsule 100 Mg PO BID Furosemide 20 Mg Tablet 20 Mg PO DAILY Levothyroxine Sodium 75 Mcg Tablet 75 Mcg PO DAILY Instructions to patient/family Please see electronic discharge instructions given to patient. Diagnosis/Problems Diagnosis/Problems (1) Osteoarthritis of right knee (2) Paroxysmal A-fib Status: Chronic (3) HTN (hypertension) Status: Chronic DAYA VILLEGAS DO Jun 20, 2021 06:07
--- NOTE | 2021-06-22 13:41 | Therapy Team Discharge Summary ---
Therapy Discharge Summary Discharge Recommendations Date of Discharge Jun 20, 2021 at 06:08 Occupational Therapy Pt admitted to ARU s/p R TKA. At OF, pt was independent with ADLs and funct ional mobility using FWW. Upon initial assessment, pt required set up assistance with eating, SBA oral care, min A UE dressing, and total assistance with showering, lower body dressing, footwear and toileting. OT tx focused on increasing BUE strength and activity tolerance, and increasing safety and independence with ADLs and functional mobility. Pt had short stay on rehab due to transferring to ICU due to increased medical complexity. Due to short stay, pt did not meet any goals, and did not make progress towards goals. Pt discharged from ARU, d/c from OT. Decreased Activ Tolerance, Decreased Safety Aware, Decreased UE Strength, Im paired Bed Mobility, Impaired Cognition, Impaired Funct Balance, Impaired I ADL's, Impaired Self-Care Skills PT Nursing Home Goals [employer] Goals PT Nursing Home Goals Time Frame: Jul 22, 2021 Roll Left to Right (QC): 5 Sit to Lying (QC): 5 Lying-Sitting on Side/Bed(QC): 5 Sit to Stand (QC): 5 Chair/Yqb-qi-Jfrri Xfer(QC): 5 Car Transfer (QC): 5 Does the Patient Walk: Yes Walk 10 feet (QC): 4 Walk 10ft-Uneven Surface(QC): 4 Walk 50ft with 2 Turns (QC): 4 Walk 150 ft (QC): 4 Does the Pt use WC or Scooter?: Yes Wheel 50 feet with 2 turns (QC: 5 1 Step (curb) (QC): 3 4 Steps (QC): 3 12 Steps (QC): 3 Picking up an Object (QC): 4 OT [employer] Executive Goals [employer] Executive Goals Time Frame: Jul 17, 2021 Eating (QC): 6 Oral Hygiene (QC): 6 Shower/Bathe Self (QC): 6 Upper Body Dressing (QC): 6 Lower Body Dressing (QC): 6 On/Off Footwear (QC): 6 Toileting Hygiene (QC): 6 Toilet/Commode Transfer (QC): 5 Additional Goals: 1-Demonstrate ADL Tasks, 2-Verbalize Understanding, 3- ImproveStrength/Gilda 1=Demonstrate adherence to instructed precautions during ADL tasks. 2=Patient will verbalize/demonstrate understanding of assistive devices/modific ations for ADL. 3=Patient will improve strength/tolerance for activity to enable patient to perform ADL's. Speech Nursing Home Goals Nursing Home Goals Patient will improve functional abilities in order to improve independence and safety with decreased need for assistance. DOUG BRINK OT Jun 22, 2021 13:41
--- NOTE | 2021-06-22 14:57 | Therapy Team Discharge Summary ---
Therapy Discharge Summary Discharge Recommendations Date of Discharge Jun 20, 2021 at 06:08 Physical Therapy Patient came to rehab following a right TKA. Upon evaluation patient performed rolling and supine <-> sit with min/mod assist, sit <-> stand and transfers with max assist, ambulated 10' with a rolling walker with max assist, and propelled a manual WC 30'. Patient has been performing bed mobility and transfer training, balance and endurance training, functional strengthening, gait training, and education. Patient had to go to ICU for medical complications, quality codes were not able to be obtained. Patient will be discharged from PT at this time. Occupational Therapy Decreased Activ Tolerance, Decreased Safety Aware, Decreased UE Strength, Impaired Bed Mobility, Impaired Cognition, Impaired Funct Balance, Impaired I ADL's, Impaired Self-Care Skills PT Print Project Manager Goals Print Project Manager Goals PT Shelter Goals Time Frame: Jul 22, 2021 Roll Left to Right (QC): 5 Sit to Lying (QC): 5 Lying-Sitting on Side/Bed(QC): 5 Sit to Stand (QC): 5 Chair/Hxw-dq-Acoex Xfer(QC): 5 Car Transfer (QC): 5 Does the Patient Walk: Yes Walk 10 feet (QC): 4 Walk 10ft-Uneven Surface(QC): 4 Walk 50ft with 2 Turns (QC): 4 Walk 150 ft (QC): 4 Does the Pt use WC or Scooter?: Yes Wheel 50 feet with 2 turns (QC: 5 1 Step (curb) (QC): 3 4 Steps (QC): 3 12 Steps (QC): 3 Picking up an Object (QC): 4 OT Shelter Goals Print Project Manager Goals Time Frame: Jul 17, 2021 Eating (QC): 6 Oral Hygiene (QC): 6 Shower/Bathe Self (QC): 6 Upper Body Dressing (QC): 6 Lower Body Dressing (QC): 6 On/Off Footwear (QC): 6 Toileting Hygiene (QC): 6 Toilet/Commode Transfer (QC): 5 Additional Goals: 1-Demonstrate ADL Tasks, 2-Verbalize Understanding, 3- ImproveStrength/Gilda 1=Demonstrate adherence to instructed precautions during ADL tasks. 2=Patient will verbalize/demonstrate understanding of assistive devices/modifications for ADL. 3=Patient will improve strength/tolerance for activity to enable patient to perform ADL's. Speech Print Project Manager Goals Print Project Manager Goals Patient will improve functional abilities in order to improve independence and safety with decreased need for assistance. SABRINA SHERMAN PT Jun 22, 2021 14:57
--- NOTE | 2021-06-23 10:40 | Therapy Team Discharge Summary ---
Therapy Discharge Summary Discharge Recommendations Date of Discharge Jun 20, 2021 at 06:08 Occupational Therapy Decreased Activ Tolerance, Decreased Safety Aware, Decreased UE Strength, Imp aired Bed Mobility, Impaired Cognition, Impaired Funct Balance, Impaired I ADL's, Impaired Self-Care Skills Speech-Language Pathology Patient was admitted to the ARU due to knee replacement. During her stay here she became ill and required 10L of O2. She was transferred to the ICU on 06/20/2021. PT Penitentiary Goals Solution Designer Goals PT Penitentiary Goals Time Frame: Jul 22, 2021 Roll Left to Right (QC): 5 Sit to Lying (QC): 5 Lying-Sitting on Side/Bed(QC): 5 Sit to Stand (QC): 5 Chair/Hgs-yy-Jwnlk Xfer(QC): 5 Car Transfer (QC): 5 Does the Patient Walk: Yes Walk 10 feet (QC): 4 Walk 10ft-Uneven Surface(QC): 4 Walk 50ft with 2 Turns (QC): 4 Walk 150 ft (QC): 4 Does the Pt use WC or Scooter?: Yes Wheel 50 feet with 2 turns (QC: 5 1 Step (curb) (QC): 3 4 Steps (QC): 3 12 Steps (QC): 3 Picking up an Object (QC): 4 OT [facility] Goals Solution Designer Goals Time Frame: Jul 17, 2021 Eating (QC): 6 Oral Hygiene (QC): 6 Shower/Bathe Self (QC): 6 Upper Body Dressing (QC): 6 Lower Body Dressing (QC): 6 On/Off Footwear (QC): 6 Toileting Hygiene (QC): 6 Toilet/Commode Transfer (QC): 5 Additional Goals: 1-Demonstrate ADL Tasks, 2-Verbalize Understanding, 3- ImproveStrength/Gilda 1=Demonstrate adherence to instructed precautions during ADL tasks. 2=Patient will verbalize/demonstrate understanding of assistive devices/modifications for ADL. 3=Patient will improve strength/tolerance for activity to enable patient to perform ADL's. Speech Pen[facility]iary Goals Solution Designer Goals Patient will improve functional abilities in order to improve independence and safety with decreased need for assistance. ESTEBAN BYRD Jun 23, 2021 10:40
--- NOTE | 2021-06-25 11:50 | Physician Query Clarification ---
PQ-CHF Specificity Admission Date: Jun 18, 2021 at 13:40 Discharge Date: Jun 20, 2021 at 06:08 Dr. Portillo, The medical record reflects the following clinical scenario: History/Risk Factors: s/p RT TKR, HTN, CHF, CAD Clinical Findings: elevated BNP acute on chronic Treatment: 20 mg PO Lasix Question: Can you further specify the acuity &/or type of CHF per the clinical indicators above? Please document a response in the Progress Notes or Discharge Summary. 1. Acuity: Acute, Chronic or Acute on Chronic 2. Type: Systolic, Diastolic or Systolic & Diastolic 3. Unspecified: CHF cannot be further specified regarding type or acuity 4. Other, with explanation of clinical findings 5. Clinically undetermined, no explanation for clinical findings PHYSICIAN RESPONSE Acuity: Acute Type: Diastolic Please remember a lack of response to the above will prompt a phone page by [facility]I /Coding staff. In responding to this query, please exercise your independent professional judgment. The purpose of this communication is to more accurately reflect the complexity of your patients condition. The fact that a question is asked does not imply that any particular answer is desired or expected. Thank you for your timely response to this clarification. Requestors name: Isidra THIS PHYSICIAN QUERY FORM IS A PERMANENT PART OF THE MEDICAL RECORD ISIDRA WAGNER Jun 25, 2021 11:50 DAYA PORTILLO DO Jun 25, 2021 12:53
== END 2021-06-20 06:08 | disposition short-term general hospital (02) | DRG 559 ==
PROVIDERS: ADMIT Internal Medicine; ATTEND Internal Medicine
DX: Z47.1 Aftercare following joint replacement surgery (principal); J18.9 Pneumonia, unspecified organism; I50.31 Acute diastolic (congestive) heart failure; Z96.651 Presence of right artificial knee joint; I11.0 Hypertensive heart disease with heart failure; I49.5 Sick sinus syndrome; I25.10 Atherosclerotic heart disease of native coronary artery without angina pectoris; R32 Unspecified urinary incontinence; R35.0 Frequency of micturition; R30.0 Dysuria; R31.9 Hematuria, unspecified; H91.10 Presbycusis, unspecified ear; I48.0 Paroxysmal atrial fibrillation; I35.0 Nonrheumatic aortic (valve) stenosis; I65.23 Occlusion and stenosis of bilateral carotid arteries; E78.5 Hyperlipidemia, unspecified; E03.9 Hypothyroidism, unspecified; R41.89 Other symptoms and signs involving cognitive functions and awareness; R06.03 Acute respiratory distress; Z79.01 Long term (current) use of anticoagulants; Z95.5 Presence of coronary angioplasty implant and graft; Z97.4 Presence of external hearing-aid; I25.2 Old myocardial infarction; Z95.0 Presence of cardiac pacemaker; Z88.0 Allergy status to penicillin; Z91.018 Allergy to other foods
CPT/HCPCS: 36415; 71045; 80053; 83605; 84145; 85025

== ENCOUNTER 2021-06-20 06:00 | Inpatient (IN) | payer MEDICARE ==
[~2021-06-20] VITALS: Ht 175.6 cm; Wt 78.6 kg
[2021-06-20] MEDS ORDERED: fentaNYL INJ 100 MCG/2 ML AMP IVP PRN (06:45)
[2021-06-20] MEDS ORDERED: NS IV 1000 ML 1,000 ML IV SCH (06:45)
[2021-06-20] MEDS ORDERED: LORazepam INJ 2 MG/ML (ATIVAN) VIAL IVP PRN (06:45)
[2021-06-20 07:00] VITALS: BP 136/55
[2021-06-20 07:19] LABS: BASOPHILS # (AUTO) 0.1 10^3/uL (0.0-0.1); BASOPHILS % (AUTO) 0 % (0-10); EOSINOPHILS # (AUTO) 0.1 10^3/uL (0.0-0.3); EOSINOPHILS % (AUTO) 1 % (0-10); HEMATOCRIT 26 % (35-52); HEMOGLOBIN 8.2 g/dL (11.5-16.0); LYMPHOCYTES # (AUTO) 1.1 10^3/uL (1.0-4.0); LYMPHOCYTES % (AUTO) 10 % (12-44); MEAN CORPUSCULAR HEMOGLOBIN 30 pg (25-34); MEAN CORPUSCULAR HGB CONC 32 g/dL (32-36); MEAN CORPUSCULAR VOLUME 95 fL (80-99); MEAN PLATELET VOLUME 9.8 fL (9.0-12.2); MONOCYTES # (AUTO) 1.2 10^3/uL (0.0-1.0); MONOCYTES % (AUTO) 10 % (0-12); NEUTROPHILS # (AUTO) 9.1 10^3/uL (1.8-7.8); NEUTROPHILS % (AUTO) 78 % (42-75); PLATELET COUNT 198 10^3/uL (130-400); WHITE BLOOD COUNT 11.6 10^3/uL (4.3-11.0)
[2021-06-20] MEDS ORDERED: RT-ALBUTEROL SULF 2.5 MG/3 ML PRE-MIX VIAL INH PRN (07:30)
[2021-06-20 07:42] LABS: BILIRUBIN,URINE NEGATIVE (NEGATIVE); CLARITY,URINE CLEAR; COLOR,URINE YELLOW; GLUCOSE, URINE (UA) NEGATIVE (NEGATIVE); KETONES,URINE NEGATIVE (NEGATIVE); LEUKOCYTE ESTERASE ,URINE NEGATIVE (NEGATIVE); NITRITE,URINE NEGATIVE (NEGATIVE); PROTEIN,URINE NEGATIVE (NEGATIVE)
[2021-06-20 07:42] LABS: ABG BASE EXCESS 3.9 MMOL/L (-2.5-2.5); ABG OXYGEN SATURATION 97 % (94-100); ABG PCO2 53 MMHG (35-45); ABG PH 7.36 (7.37-7.43); ABG PO2 79 MMHG (79-93); ABG TCO2 30.5 MMOL/L (21.0-31.0)
[2021-06-20 07:44] LABS: PATIENT TEMP 37.4
[2021-06-20 07:51] LABS: BACTERIA,URINE NEGATIVE /HPF
[2021-06-20 08:00] LABS: ALBUMIN 3.1 GM/DL (3.2-4.5); BILIRUBIN,TOTAL 0.8 MG/DL (0.1-1.0); CALCIUM 8.5 MG/DL (8.5-10.1); CREATININE SERUM 0.84 MG/DL (0.60-1.30); POTASSIUM 4.1 MMOL/L (3.6-5.0); TOTAL PROTEIN 5.9 GM/DL (6.4-8.2)
--- NOTE | 2021-06-20 08:21 | History & Physical ---
History of Present Illness HPI/Chief Complaint CC: Respiratory insufficiency HPI: This is an 80yoWF who I moved from IRF this morning due to increasing O2 requirement in new onset hypoxia requiring supplemental oxygen patient who was admitted to IRF due to debility following knee replacement. Patient had CT angiogram performed to r/o PE due to Xarelto was disrupted several days prior to knee replacement surgery and especially given the fact that CXR and PCT and labs were negative the day before I obtained the full w/u due to crackles in lower lungs and post op fever. Patient had become more confused and was ultimately moved to ICU where CXR revealed PNA and CT angiogram did not reveal PE. Elevated BNP is chronic and Dr Dixon was consulted. Source: patient, old records Exam Limitations: clinical condition Date Seen 06/20/21 Time Seen by a Provider: 10:30 Attending Physician Lilliam Portillo John D MD Referring Physician Date of Admission Jun 20, 2021 at 06:00 Home Medications & Allergies Home Medications Reviewed patient Home Medication Reconciliation performed by pharmacy medication reconciliations ceramics technician and/or nursing. Patients Allergies have been reviewed. Allergies Allergies Coded Allergies Penicillins (Verified Allergy, Unknown, 06/17/21) pineapple (Verified Allergy, Unknown, 06/17/21) Past Ctxaesj-Wfwhjj-Feykgj Hx Past Med/Social Hx: Reviewed Nursing Past Med/Soc Hx, Reviewed and Corrections made Patient Social History Marrital Status: single Employed/Student: retired Smoking Status: Never a Smoker Recent Hopitalizations: No Immunizations Up To Date Tetanus Booster (TDap): Unknown Pediatric: No Date of Pneumonia Vaccine: Apr 12, 2018 Date of Influenza Vaccine: Apr 08, 2020 Seasonal Allergies Seasonal Allergies: Yes Past Medical History Surgeries: Coronary Stent, Hysterectomy, Pacemaker Currently Using CPAP: No Currently Using BIPAP: No Cardiac: Atrial Fibrillation, High Cholesterol, Hypertension Reproductive: No Sexually Transmitted Disease: No HIV/AIDS: No Female Reproductive Disorders: Denies Hysterectomy Endocrine: Hypothyroidsim HEENT: Cataract Hearing Impairment: Hard of Hearing, Hearing Aide Right, Hearing Aide Left History of Blood Disorders: No Adverse Reaction to Blood Rogers: No Family History Patient reports no known family medical history. No Pertinent Family Hx Review of Systems Constitutional: see HPI, dizziness, fever, malaise, weakness EENTM: no symptoms reported Respiratory: dyspnea on exertion, short of breath Cardiovascular: no symptoms reported Gastrointestinal: no symptoms reported Genitourinary: no symptoms reported Musculoskeletal: no symptoms reported Skin: no symptoms reported Psychiatric/Neurological: No Symptoms Reported All Other Systems Reviewed Negative Unless Noted: Yes Physical Exam Physical Exam Vital Signs Vital Signs - First Documented 06/20/21 06/20/21 06/20/21 07:00 07:30 07:52 Temp 37.5 O2 Delivery OxyMask O2 Flow Rate 10.00 FiO2 10 Capillary Refill : Height, Weight, BMI Height: 5'9.00" Weight: 171lbs. 9.0oz. 77.772235ry; 25.26 BMI Method:Stated General Appearance: No Apparent Distress, WD/WN, Anxious, Chronically ill, Mild Distress Eyes: Bilateral Eye Normal Inspection, Bilateral Eye PERRL HEENT: PERRL/EOMI, Normal ENT Inspection, Pharynx Normal Neck: Full Range of Motion, Normal Inspection, Non Tender, Supple, Carotid Bruit Respiratory: Chest Non Tender, No Accessory Muscle Use, No Respiratory Distress, Crackles, Decreased Breath Sounds, Wheezing Cardiovascular: Regular Rate, Rhythm, No Edema, No Gallop, No JVD, No Murmur, Normal Peripheral Pulses Gastrointestinal: Normal Bowel Sounds, No Organomegaly, No Pulsatile Mass, Non Tender, Soft Back: Normal Inspection, No CVA Tenderness, No Vertebral Tenderness Extremity: Normal Capillary Refill, Normal Inspection, Normal Range of Motion, Non Tender, No Calf Tenderness, No Pedal Edema Neurologic/Psychiatric: Alert, Oriented x3, No Motor/Sensory Deficits, 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 Assessment/Plan Admission Diagnosis Assessment: Acute respiratory distress PNA on CXR today and PCT elevated but negative the day before with CXR and PCT normal Sepsis Elevated BNP acute on chronic CHF Pacemaker AF OAC disrupted due to ortho surgery so required CT angiogram to r/o PE Dementia? SLUMS Advanced age s/p right knee replacement POD # 3 h/o SIVA s/p critical illness 09/2020 requiring right ureter stent for obstruction of uncertain etiology Valvular heart disease HTN with severe OOC status post op Hypothyroidism Presbycusis Plan: IV abx O2 Cards consult EICU consult OAC Admission Status: Inpatient Order (span 2 midnights) Reason for Inpatient Admission: sepsis PNA LILLIAM PORTILLO DO Jun 20, 2021 08:21
[2021-06-20] MEDS ORDERED: LOPERAMIDE 2 MG (IMODIUM) TABLET PO PRN (08:30)
[2021-06-20] MEDS ORDERED: diphenhydrAMINE 50 MG/ML INJ (BENADRYL) IVP PRN (08:30)
[2021-06-20] MEDS ORDERED: ONDANSETRON 4 MG/2 ML (SDV) Z0FRAN IVP PRN (08:30)
[2021-06-20] MEDS ORDERED: cloNIDine 0.1 MG (CATAPRES) TAB PO PRN (08:30)
[2021-06-20] MEDS ORDERED: FLEET ENEMA ADULT 1 EA BTL PR PRN (08:30)
[2021-06-20] MEDS ORDERED: CALCIUM CARBONATE 500 MG (TUMS) TAB.CHEW PO PRN (08:30)
[2021-06-20] MEDS ORDERED: RT-ALBUTEROL/IPRATROPIUM 3 ML (DUONEB) VIAL INH PRN (08:30)
[2021-06-20] MEDS ORDERED: ALPRAZolam 0.25 MG (XANAX) TAB PO PRN (08:30)
[2021-06-20] MEDS ORDERED: MELATONIN 3 MG TABLET PO PRN (08:30)
[2021-06-20] MEDS ORDERED: hydrALAZINE (APRESOLINE) 25 MG TAB PO PRN (08:30)
[2021-06-20] MEDS ORDERED: DOCUSATE SODIUM 100 MG (COLACE) CAP PO PRN (08:30)
[2021-06-20] MEDS ORDERED: ONDANSETRON 4 MG (ZOFRAN) ORAL DISSOLVE TAB PO PRN (08:30)
[2021-06-20] MEDS ORDERED: diphenhydrAMINE 25 MG TAB (BENADRYL) PO PRN (08:30)
[2021-06-20] MEDS ORDERED: LORazepam INJ 2 MG/ML (ATIVAN) VIAL IM PRN (08:30)
[2021-06-20] MEDS ORDERED: WATER (STERILE) FOR INJ 10 ML BTL INJ SCH ×2 (08:30)
[2021-06-20] MEDS ORDERED: LACTULOSE SYRUP 10GM/15ML (ENULOSE) 30ML UDC PO PRN (08:30)
[2021-06-20] MEDS ORDERED: ZIPRASIDONE 20 MG INJ (GEODON) VIAL IM PRN (08:30)
[2021-06-20] MEDS ORDERED: BISACODYL 10 MG SUPP (DULCOLAX) PR PRN (08:30)
[2021-06-20] MEDS ORDERED: guaiFENesin/CODEINE (ROBITUSSIN AC) 10ML UDC PO PRN (08:30)
--- NOTE | 2021-06-20 08:41 | Diagnostic Imaging Report ---
Indication: Hypoxia. Compared: 06/19/2021 Findings: Heart size is stable. No overt vascular congestion. Patchy medial left basilar and more diffuse right lung infiltrates and airspace opacities have occurred suggestive of worsening pneumonia. Impression: Progressive infiltrates greater right. Dictated by: Dictated on workstation # [id number]
--- NOTE | 2021-06-20 08:43 | Diagnostic Imaging Report ---
PROCEDURE: CT head without contrast. TECHNIQUE: Multiple contiguous axial images were obtained through the brain without the use of intravenous contrast. Auto Exposure Controls were utilized during the CT exam to meet ALARA standards for radiation dose reduction. INDICATION: Altered mental status. COMPARED: 10/07/2020 FINDINGS: Cerebral cortical atrophy is stable, chronic finding. No focal or generalized cerebral edema. No sulcal effacement. No evidence for an elevation of the intracerebral pressures and no mass or mass effect. Basilar cisterns are patent. There are no abnormal extra-axial collections. There is no cerebral edema. Lopes-white matter differentiations maintained. There is intracranial atherosclerotic vascular calcifications chronic. IMPRESSION: Stable chronic findings. No hemorrhage, edema or acute finding. No change from prior. Dictated by: Dictated on workstation # [id number]
[2021-06-20] MEDS ORDERED: IOHEXOL 350 MG/ML 100 ML (OMNIPAQUE 350) VIAL IV ONE (08:45)
[2021-06-20] MEDS ORDERED: NS 100 ML (IVPB) BAG IV ONE (08:45)
[2021-06-20] MEDS ORDERED: HOLD METFORMIN - RECEIVED CONTRAST 20 ML VIAL IV SCH (08:45)
[2021-06-20] MEDS: SENNA W/DOCUSATE (SENOKOT S) TABLET PO SCH ×2 (08:52→20:45)
[2021-06-20] MEDS: polyethylene glycoL POWDER 17 GM (MIRALAX) PACK PO SCH ×2 (08:52→20:43)
[2021-06-20] MEDS ORDERED: PHARMACY TO DOSE IV SCH (09:00)
[2021-06-20] MEDS: GABAPENTIN 100 MG (NEURONTIN) CAP PO SCH ×2 (09:25→20:44)
[2021-06-20] MEDS: KCL 10 MEQ TAB (MICRO K) PO SCH (09:26)
[2021-06-20] MEDS: ACETAMINOPHEN 325 MG TABLET PO PRN (09:26)
[2021-06-20] MEDS: MULTIVIT W/MINERALS TAB (THERAGRAN M) PO SCH (09:26)
[2021-06-20] MEDS: RIVAROXABAN 20 MG TABLET (XARELTO) PO SCH (09:26)
[2021-06-20] MEDS: ASPIRIN E.C. 81 MG (ECOTRIN) TAB PO SCH (09:26)
[2021-06-20] MEDS: RT-ALBUTEROL SULF 2.5 MG/3 ML PRE-MIX VIAL INH SCH ×2 (09:37→21:04)
--- NOTE | 2021-06-20 09:48 | Diagnostic Imaging Report ---
PROCEDURE: CT angiography of the chest with contrast. TECHNIQUE: Multiple contiguous axial images were obtained through the chest after uneventful bolus administration of intravenous contrast. 3D reconstructed CTA MIP acquisitions were also performed. Auto Exposure Controls were utilized during the CT exam to meet ALARA standards for radiation dose reduction. INDICATION: Altered mental status. No prior studies are available for comparison. Evaluation of pulmonary arterial system is without evidence of thromboembolism. No definite filling defects are seen within central, lobar segmental branches. Thoracic aorta does show prosthetic aortic valve. There is no definite dissection seen. Heart is enlarged. There is a trace pericardial effusion. There is trace bilateral pleural effusions. Patchy airspace infiltrate in the right upper lobe is seen. There is consolidation with air bronchograms in the right lower lobe. There is small amount of consolidation with air bronchograms left lower lobe posteriorly is also seen. Upper abdomen is unremarkable. IMPRESSION: 1. No evidence of pulmonary embolism or acute aortic disease. 2. Trace pericardial effusion, trace bilateral pleural effusions. 3. Bilateral pulmonary infiltrates with consolidation in the lower lobes and air bronchograms consistent with pneumonia. Dictated by: Dictated on workstation # [id number]
[2021-06-20] MEDS ORDERED: VANCOMYCIN 1500 MG/NS 500 ML IVPB IV NR ×2 (10:00)
[2021-06-20] MEDS: CEFEPIME INJECTION 2,000 MG in NS (IVPB) 50 ML IV SCH ×2 (10:20→20:43)
--- NOTE | 2021-06-20 10:25 | Tele-ICU Consult ---
History of Present Illness History of Present Illness Date Seen by Provider: Jun 20, 2021 Time Seen by Provider: 10:25 Date of Admission 06/20/21 History of Present Illness She is a 80-year-old female with past medical history of aortic valve replacement, chronic atrial fibrillation, coronary artery disease and possible diastolic congestive heart failure was recently underwent right knee total replacement following her she is in a rehab unit. She developed for today shortness of breath lethargic requiring high flow nasal cannula oxygenation. Chest x-ray reviewed and showed cardiomegaly and possible right lower lobe infiltrate and bilateral small pleural effusion. As she is requiring 12 L of oxygen she is admitted to the intensive care unit for close monitoring and m anagement. Patient currently lethargic unable to give any detailed history I have discussed with the MONUMENTAL STONEMASON and obtain some history and reviewed her medical records. She is seen by her city routeman as well. With the use of oxygen she does not seems to be in any acute respiratory distress. Allergies and Home Medications Allergies Coded Allergies: Penicillins (Verified Allergy, Unknown, 06/17/21) pineapple (Verified Allergy, Unknown, 06/17/21) Home Medications Atorvastatin Calcium 20 Mg Tablet, 20 MG PO DAILY, (Reported) Carvedilol 12.5 Mg Tablet, 12.5 MG PO BID, (Reported) Diltiazem HCl 240 Mg Cap.er.deg, 240 MG PO DAILY, (Reported) Furosemide 20 Mg Tablet, 20 MG PO DAILY, (Reported) Gabapentin 100 Mg Capsule, 100 MG PO BID, (Reported) Levothyroxine Sodium 75 Mcg Tablet, 75 MCG PO DAILY, (Reported) Potassium Chloride 10 Meq Tablet.er, 20 MEQ PO DAILY, (Reported) TAKE 2 (10MEQ) TABS Rivaroxaban 20 Mg Tablet, 20 MG PO DAILY, (Reported) Past Medical/Social/Family Hx Immunizations Up To Date Influenza Vaccine Up-to-Date: Yes; Up-to-Date First/Initial COVID19 Vaccinat: october 2020 Second COVID19 Vaccination Darryl: november 2020 Tetanus Booster (TDap): Unknown Hepatitis A: No Hepatitis B: No TB Skin Test: Negative Date of Pneumonia Vaccine: Apr 12, 2018 Current Status Primary Language: Khmer Sensory deficits: Hearing impairment Implanted or Applied Medical D: None Review of Systems Constitutional: see HPI Other ROS PER ATTENDING PHYSICIAN Sepsis Event Evaluation Height, Weight, BMI Height: 5'9.00" Weight: 171lbs. 9.0oz. 77.715799rk; 25.26 BMI Method:Stated Exam Exam Patient acknowledged, consented, and participated in this virtual visit which was conducted using real time audio/video Vital Signs Date Time Temp Pulse Resp B/P (MAP) Pulse Ox O2 Delivery O2 Flow Rate FiO2 06/20/21 10:00 60 117/48 95 High Flow N/C 12.00 06/20/21 09:55 High Flow N/C 12.00 06/20/21 09:37 91 High Flow N/C 10.00 06/20/21 09:00 63 135/56 96 OxyMask 10.00 06/20/21 08:00 OxyMask 10.00 06/20/21 08:00 63 17 128/62 96 OxyMask 10.00 06/20/21 07:52 37.5 06/20/21 07:45 65 28 130/54 95 06/20/21 07:30 62 129/55 92 OxyMask 10.00 06/20/21 07:15 64 32 130/53 90 06/20/21 07:00 66 96 10 06/20/21 07:00 65 06/20/21 07:00 65 28 136/55 96 Height & Weight Height: 5'9.00" Weight: 171lbs. 9.0oz. 77.904997uh; 25.26 BMI Method:Stated General Appearance: Other (lethargic) Other comments PE PER ATTENDING. Results Lab Laboratory Tests 06/20/21 07:06 Assessment/Plan Assessment/Plan 1. Acute hypercarbic and hypoxic respiratory failure due to underlying the pneumonia and possibly congestive heart failure. 2. History of coronary artery disease 3. Chronic atrial fibrillation 4. Possible diastolic congestive heart failure chronic. 5. Aortic valve replacement long time ago. 6. Recent right knee replacement. 7. Suspect healthcare associated pneumonia. 8. Chronic atrial fibrillation per cardiology service. Recommendations 1. Continue high flow nasal cannula oxygenation. 2. Possible diuretic therapy per cardiology. 3. Suggest broad-spectrum antibiotics to cover hospital associated pneumonia. 4. DVT prophylaxis. 5. Ulcer prophylaxis. 6. Suggest chest physical therapy Critical Care: Critically Ill Patient Time spent with patient (mins): 40 GENNARO RIDDLE MD Jun 20, 2021 10:25
--- NOTE | 2021-06-20 10:50 | Consultation-Cardiology ---
HPI-Cardiology Cardiology Consultation Date of Consultation 06/20/21 Date of Admission Time Seen by Provider: 10:44 Indication: Acute respiratory failure HPI 80-year-old lady with history of coronary artery disease, aortic valve replacement, underwent knee surgery, was in cardiac rehab where she became more lethargic, fatigued, noted to be in respiratory failure and transferred to the intensive care unit. On my evaluation patient is laying down in bed. Complains of generalized fatigue and loss of energy, having mild shortness of breath. Denied any chest pain. No palpitation. No syncope. She is still confused Home Medications & Allergies Allergies: Coded Allergies: Penicillins (Verified Allergy, Unknown, 06/17/21) pineapple (Verified Allergy, Unknown, 06/17/21) Home Medication List Reviewed: Yes [id number] Hx Patient Social History Marital Status: Employed/Student: retired Recent Hopitalizations: No Immunizations Up To Date Tetanus Booster (TDap): Unknown Date of Pneumonia Vaccine: Apr 12, 2018 Date of Influenza Vaccine: Apr 08, 2020 Past Medical History Discussed below Family Medical History Significant Family History: No Pertinent Family Hx Family Medical Hx Noncontributory Family History: Patient reports no known family medical history. Review of Systems-General Review of Systems Constitutional: see HPI, malaise, weakness EENTM: see HPI, no symptoms reported Respiratory: see HPI; No cough; dyspnea on exertion; No hemoptysis, No orthopnea, No phlegm; short of breath; No stridor, No wheezing, No other Cardiovascular: see HPI; No chest pain; edema; No Hx of Intervention, No palpitations, No syncope, No vascular heart diseas, No other Gastrointestinal: no symptoms reported, see HPI Genitourinary: no symptoms reported, see HPI Musculoskeletal: no symptoms reported, see HPI Skin: no symptoms reported, see HPI Psychiatric/Neurological: No Symptoms Reported, See HPI Reviewed Test Results Reviewed Test Results Lab Laboratory Tests Test 06/20/21 06:30 06/20/21 07:06 06/20/21 07:35 Range/Units Urine Color YELLOW Urine Clarity CLEAR Urine pH 6.0 5-9 Urine Specific [place] 1.020 1.016-1.022 Urine Protein NEGATIVE NEGATIVE Urine Glucose (UA) NEGATIVE NEGATIVE Urine Ketones NEGATIVE NEGATIVE Urine Nitrite NEGATIVE NEGATIVE Urine Bilirubin NEGATIVE NEGATIVE Urine Urobilinogen 0.2 < = 1.0 MG/DL Urine Leukocyte Esterase NEGATIVE NEGATIVE Urine RBC (Auto) NEGATIVE NEGATIVE Urine RBC NONE /HPF Urine WBC NONE /HPF Urine Crystals NONE /LPF Urine Bacteria NEGATIVE /HPF Urine Casts NONE /LPF Urine Mucus NEGATIVE /LPF Urine Culture Indicated NO White Blood Count 11.6 H 4.3-11.0 10^3/uL Red Blood Count 2.70 L 3.80-5.11 10^6/uL Hemoglobin 8.2 L 11.5-16.0 g/dL Hematocrit 26 L 35-52 % Mean Corpuscular Volume 95 80-99 fL Mean Corpuscular Hemoglobin 30 25-34 pg Mean Corpuscular Hemoglobin Concent 32 32-36 g/dL Red Cell Distribution Width 13.9 10.0-14.5 % Platelet Count 198 130-400 10^3/uL Mean Platelet Volume 9.8 9.0-12.2 fL Immature Granulocyte % (Auto) 0 % Neutrophils (%) (Auto) 78 H 42-75 % Lymphocytes (%) (Auto) 10 L 12-44 % Monocytes (%) (Auto) 10 0-12 % Eosinophils (%) (Auto) 1 0-10 % Basophils (%) (Auto) 0 0-10 % Neutrophils # (Auto) 9.1 H 1.8-7.8 10^3/uL Lymphocytes # (Auto) 1.1 1.0-4.0 10^3/uL Monocytes # (Auto) 1.2 H 0.0-1.0 10^3/uL Eosinophils # (Auto) 0.1 0.0-0.3 10^3/uL Basophils # (Auto) 0.1 0.0-0.1 10^3/uL Immature Granulocyte # (Auto) 0.0 0.0-0.1 10^3/uL Sodium Level 137 135-145 MMOL/L Potassium Level 4.1 3.6-5.0 MMOL/L Chloride Level 102 98-107 MMOL/L Carbon Dioxide Level 25 21-32 MMOL/L Anion Gap 10 5-14 MMOL/L Blood Urea Nitrogen 21 H 7-18 MG/DL Creatinine 0.84 0.60-1.30 MG/DL Estimat Glomerular Filtration Rate 65 BUN/Creatinine Ratio 25 Glucose Level 122 H 70-105 MG/DL Lactic Acid Level 0.63 0.50-2.00 MMOL/L Calcium Level 8.5 8.5-10.1 MG/DL Corrected Calcium 9.2 8.5-10.1 MG/DL Total Bilirubin 0.8 0.1-1.0 MG/DL Aspartate Amino Transf (AST/SGOT) 18 5-34 U/L Alanine Aminotransferase (ALT/SGPT) 13 0-55 U/L Alkaline Phosphatase 68 40-136 U/L Troponin I 0.149 H <0.028 NG/ML B-Type Natriuretic Peptide 1051.0 H <100.0 PG/ML Total Protein 5.9 L 6.4-8.2 GM/DL Albumin 3.1 L 3.2-4.5 GM/DL Procalcitonin 0.11 H <0.10 NG/ML Blood Gas Puncture Site RT RAD Blood Gas Patient Temperature 37.4 Arterial Blood pH 7.36 L 7.37-7.43 Arterial Blood Partial Pressure CO2 53 H 35-45 MMHG Arterial Blood Partial Pressure O2 79 79-93 MMHG Arterial Blood HCO3 29 H 23-27 MMOL/L Arterial Blood Total CO2 30.5 21.0-31.0 MMOL/L Arterial Blood Oxygen Saturation 97 94-100 % Arterial Blood Base Excess 3.9 H -2.5-2.5 MMOL/L Marquez Test NA Blood Gas Ventilator Setting NA Blood Gas Inspired Oxygen NA Physical Exam Physical Exam Vital Signs Vital Signs - First Documented 06/20/21 06/20/21 06/20/21 07:00 07:30 07:52 Temp 37.5 O2 Delivery OxyMask O2 Flow Rate 10.00 FiO2 10 Capillary Refill : Height, Weight, BMI Height: 5'9.00" Weight: 171lbs. 9.0oz. 77.380103uc; 25.26 BMI Method:Stated General Appearance: WD/WN, Mild Distress Eyes: Bilateral Eye Normal Inspection, Bilateral Eye PERRL, Bilateral Eye EOMI HEENT: PERRL/EOMI, TMs Normal, Normal ENT Inspection, Pharynx Normal, Moist Mucous Membranes Neck: Full Range of Motion, Normal Inspection, Non Tender, Supple, Carotid Bruit Respiratory: Chest Non Tender, Normal Breath Sounds, No Accessory Muscle Use, No Respiratory Distress Cardiovascular: Regular Rate, Rhythm, No Edema, No Gallop, No JVD, Normal Peripheral Pulses, Systolic Murmur Gastrointestinal: Normal Bowel Sounds, No Organomegaly, No Pulsatile Mass, Non Tender, Soft Back: Normal Inspection, No CVA Tenderness, No Vertebral Tenderness Extremity: Normal Capillary Refill, Normal Inspection, Normal Range of Motion, Non Tender, No Calf Tenderness, No Pedal Edema Neurologic/Psychiatric: Alert, Oriented x3, No Motor/Sensory Deficits, Normal Mood/Affect Skin: Normal Color, Warm/Dry Lymphatic: No Adenopathy A/P-Cardiology Admission Diagnosis Acute respiratory insufficiency Pneumonia Aortic valve stenosis Hypertension Assessment/Plan Acute respiratory insufficiency, hypoxemia, questionable underlying pneumonia. Started on antibiotic and managed by medical team Elevated BNP, history of LVH with congestive heart failure. Evaluate 2D echocardiogram. Coronary artery disease with history of stent to LAD. Underwent cardiac catheterization in July 2017 in [place] revealing patent stent with nonobstructive disease. Continue to monitor. History of severe aortic valve stenosis, status post TAVR done September 06, 2017 in [place] with uneventful deployment of a 26 mm Medtronic Evolut Pro. Most recent 2D Echo 10/12/18 revealing mechanical prothesis present in aortic valve. Peak gradient across prosthetic valve is 26 mmHg, mean gradient 13mmHg, calculated valve area 2.41 cm squared. Mild AR. there is perivalvular regurg, Mod TR, planning to repeat 2D echo Paroxysmal atrial fibrillation, currently on Xarelto, Coreg and diltiazem. Continue to monitor HTP- 2D Echo done October 2018 with PA 45-55mmHg. Mild bilateral carotid stenosis, history of syncope. Last ultrasound was done in July 2018, continue to monitor. Sick sinus syndrome, history of permanent pacemaker. Continue to monitor. Hypertension, restart medications and continue to monitor. Hyperlipidemia, monitored as outpatient. Hypothyroidism, patient is maintained on amiodarone,continue to monitor. EDY GOOD MD Jun 20, 2021 10:50
[2021-06-20] MEDS: VANCOMYCIN 750 MG/NS 250 ML IVPB IV SCH ×2 (20:43)
[2021-06-20] MEDS: FAMOTIDINE 20 MG (PEPCID) TABLET PO SCH (20:44)
[2021-06-21 04:55] LABS: BASOPHILS % (AUTO) 1 % (0-10); EOSINOPHILS # (AUTO) 0.3 10^3/uL (0.0-0.3); EOSINOPHILS % (AUTO) 3 % (0-10); HEMATOCRIT 26 % (35-52); HEMOGLOBIN 8.1 g/dL (11.5-16.0); LYMPHOCYTES # (AUTO) 0.9 10^3/uL (1.0-4.0); LYMPHOCYTES % (AUTO) 11 % (12-44); MEAN CORPUSCULAR HEMOGLOBIN 30 pg (25-34); MEAN CORPUSCULAR HGB CONC 31 g/dL (32-36); MEAN CORPUSCULAR VOLUME 97 fL (80-99); MEAN PLATELET VOLUME 9.9 fL (9.0-12.2); MONOCYTES % (AUTO) 11 % (0-12); NEUTROPHILS # (AUTO) 6.3 10^3/uL (1.8-7.8); NEUTROPHILS % (AUTO) 74 % (42-75); PLATELET COUNT 230 10^3/uL (130-400); WHITE BLOOD COUNT 8.5 10^3/uL (4.3-11.0)
[2021-06-21 05:10] LABS: POTASSIUM 4.4 MMOL/L (3.6-5.0)
[2021-06-21 05:11] LABS: CALCIUM 8.5 MG/DL (8.5-10.1)
[2021-06-21 05:12] LABS: TOTAL PROTEIN 5.8 GM/DL (6.4-8.2)
[2021-06-21 05:14] LABS: BILIRUBIN,TOTAL 0.8 MG/DL (0.1-1.0)
[2021-06-21 05:15] LABS: PHOSPHORUS 1.6 MG/DL (2.3-4.7)
[2021-06-21 05:16] LABS: CREATININE SERUM 0.76 MG/DL (0.60-1.30)
[2021-06-21 05:56] LABS: ABG BASE EXCESS 3.6 MMOL/L (-2.5-2.5); ABG OXYGEN SATURATION 94 % (94-100); ABG PCO2 44 MMHG (35-45); ABG PH 7.42 (7.37-7.43); ABG PO2 63 MMHG (79-93); ABG TCO2 29.1 MMOL/L (21.0-31.0)
[2021-06-21 05:57] LABS: ALLENS TEST YES-POS
[2021-06-21] MEDS ORDERED: POTASSIUM CL 10MEQ/50ML IVPB 50 ML IV SCH (06:00)
[2021-06-21] MEDS ORDERED: KCL 20 MEQ TAB (K-DUR) PO SCH (06:00)
[2021-06-21] MEDS ORDERED: MAGNESIUM 1 GM/100 ML IVPB 100 ML IV SCH (06:00)
[2021-06-21] MEDS: MULTIVIT W/MINERALS TAB (THERAGRAN M) PO SCH (06:32)
[2021-06-21] MEDS: LEVOTHYROXINE 75 MCG (LEVOTHROID) TABLET PO SCH (06:32)
--- NOTE | 2021-06-21 07:48 | Progress Note ---
Subjective Date Seen by a Provider: Jun 21, 2021 Time Seen by a Provider: 14:45 Subjective/Events-last exam Patient doing well Improved status Still requiring 7L/min O2 and 12L/min at night at bedside Abx maintained Lasix given Reviewed meds and labs No pain reported Dementia-like issues at home prior to surgery per when I inquired stated she had a fall and head injury 1 month prior to this surgery (upon review of records it was 10/2020 not 1 month ago) which required jose f in scalp which is considered TBI so that also may be a factor in her delirium and cognitive decline Review of Systems General: Fatigue, Malaise Pulmonary: Dyspnea Neurological: Confusion Focused Exam Lactate Level 06/20/21 07:06: Lactic Acid Level 0.63 Objective Exam Last Set of Vital Signs Vital Signs Date Time Temp Pulse Resp B/P (MAP) Pulse Ox O2 Delivery O2 Flow Rate FiO2 06/21/21 07:42 High Flow N/C 12.00 06/21/21 07:00 64 06/21/21 07:00 29 155/65 95 06/21/21 04:00 36.8 06/20/21 07:00 10 Capillary Refill : I&O Intake and Output 06/20/21 23:59 Intake Total 1307.5 ml Output Total 850 ml Balance 457.5 ml Intake Oral 1000 ml IV Total 307.5 ml Output Urine Total 850 ml Daily Weight Change Unsure General: Alert, Oriented X3, Cooperative, No Acute Distress Lungs: Other (crackles lower lobes, no tachypnea) Heart: Regular Rate Psych/Mental Status: Other (subtle confusion, poor recall) Results Lab Laboratory Tests 06/21/21 04:15: White Blood Count 8.5, Red Blood Count 2.71L, Hemoglobin 8.1L, Hematocrit 26L, Mean Corpuscular Volume 97, Mean Corpuscular Hemoglobin 30, Mean Corpuscular Hemoglobin Concent 31L, Red Cell Distribution Width 14.1, Platelet Count 230, Mean Platelet Volume 9.9, Immature Granulocyte % (Auto) 1, Neutrophils (%) (Auto) 74, Lymphocytes (%) (Auto) 11L, Monocytes (%) (Auto) 11, Eosinophils (%) (Auto) 3, Basophils (%) (Auto) 1, Neutrophils # (Auto) 6.3, Lymphocytes # (Auto) 0.9L, Monocytes # (Auto) 1.0, Eosinophils # (Auto) 0.3, Basophils # (Auto) 0.0, Immature Granulocyte # (Auto) 0.0, Sodium Level 138, Potassium Level 4.4, Chlo ride Level 104, Carbon Dioxide Level 24, Anion Gap 10, Blood Urea Nitrogen 17, Creatinine 0.76, Estimat Glomerular Filtration Rate 73, BUN/Creatinine Ratio 22, Glucose Level 92, Calcium Level 8.5, Corrected Calcium 9.3, Phosphorus Level 1.6L, Magnesium Level 2.0, Total Bilirubin 0.8, Aspartate Amino Transf (AST/SGOT) 19, Alanine Aminotransferase (ALT/SGPT) 11, Alkaline Phosphatase 70, Total Protein 5.8L, Albumin 3.0L 06/21/21 05:44: Blood Gas Puncture Site LEFT RADIAL, Blood Gas Patient Temperature 37.0, Arterial Blood pH 7.42, Arterial Blood Partial Pressure CO2 44, Arterial Blood Partial Pressure O2 63L, Arterial Blood HCO3 28H, Arterial Blood Total CO2 29.1, Arterial Blood Oxygen Saturation 94, Arterial Blood Base Excess 3.6H, Marquez Test YES-POS, Blood Gas Ventilator Setting NA, Blood Gas Inspired Oxygen NA Microbiology 06/20/21 MRSA Screen - Final, Complete MRSA not isolated Assessment/Plan Assessment/Plan Assess & Plan/Chief Complaint Assessment: Acute respiratory distress PNA on CXR Tuesday and PCT elevated but negative the day before with CXR and PCT normal Sepsis Elevated BNP acute on chronic CHF Pacemaker AF OAC disrupted due to ortho surgery so required CT angiogram to r/o PE which was negative for PE Dementia? 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
[2021-06-21] MEDS: GABAPENTIN 100 MG (NEURONTIN) CAP PO SCH ×2 (08:01→20:05)
[2021-06-21] MEDS: RIVAROXABAN 20 MG TABLET (XARELTO) PO SCH (08:01)
[2021-06-21] MEDS: KCL 10 MEQ TAB (MICRO K) PO SCH (08:01)
[2021-06-21] MEDS: CEFEPIME INJECTION 2,000 MG in NS (IVPB) 50 ML IV SCH ×2 (08:01→20:05)
[2021-06-21] MEDS: FAMOTIDINE 20 MG (PEPCID) TABLET PO SCH ×2 (08:01→20:05)
[2021-06-21] MEDS: polyethylene glycoL POWDER 17 GM (MIRALAX) PACK PO SCH ×2 (08:01→20:05)
[2021-06-21] MEDS: ASPIRIN E.C. 81 MG (ECOTRIN) TAB PO SCH (08:01)
[2021-06-21] MEDS: SENNA W/DOCUSATE (SENOKOT S) TABLET PO SCH ×2 (08:02→20:05)
[2021-06-21] MEDS: VANCOMYCIN 750 MG/NS 250 ML IVPB IV SCH ×4 (08:48→20:05)
[2021-06-21] MEDS: RT-ALBUTEROL SULF 2.5 MG/3 ML PRE-MIX VIAL INH SCH ×2 (09:19→20:51)
--- NOTE | 2021-06-21 09:41 | Tele-ICU Progress Note ---
Progress Note video rounds completed She is a 80-year-old female with past medical history of aortic valve replacement, chronic atrial fibrillation, coronary artery disease and possible diastolic congestive heart failure was recently underwent right knee total replacement following her she is in a rehab unit. She developed for today shortness of breath lethargic requiring high flow nasal cannula oxygenation. Chest x-ray reviewed and showed cardiomegaly and possible right lower lobe infiltrate and bilateral small pleural effusion. As she is requiring 12 L of oxygen she is admitted to the intensive care unit for close monitoring and management. Patient currently lethargic unable to give any detailed history I have discussed with the COPRA PROCESSOR and obtain some history and reviewed her medical records. She is seen by her clinical law professor as well. With the use of oxygen she does not seems to be in any acute respiratory distress. Now doing better O2 sats 975 on 2 L NC BP 158/70 HR: 64 NSR Started on IV antibiotics for PNA Focused Exam Lactate Level 06/20/21 07:06: Lactic Acid Level 0.63 Height, Weight, BMI Height: 5'9.00" Weight: 171lbs. 9.0oz. 77.631189ni; 25.26 BMI Method:Stated Laboratory Tests 06/21/21 04:15 Labs Labs Laboratory Tests 06/21/21 04:15: White Blood Count 8.5, Red Blood Count 2.71L, Hemoglobin 8.1L, Hematocrit 26L, Mean Corpuscular Volume 97, Mean Corpuscular Hemoglobin 30, Mean Corpuscular Hemoglobin Concent 31L, Red Cell Distribution Width 14.1, Platelet Count 230, Mean Platelet Volume 9.9, Immature Granulocyte % (Auto) 1, Neutrophils (%) (Auto) 74, Lymphocytes (%) (Auto) 11L, Monocytes (%) (Auto) 11, Eosinophils (%) (Auto) 3, Basophils (%) (Auto) 1, Neutrophils # (Auto) 6.3, Lymphocytes # (Auto) 0.9L, Monocytes # (Auto) 1.0, Eosinophils # (Auto) 0.3, Basophils # (Auto) 0.0, Immature Granulocyte # (Auto) 0.0, Sodium Level 138, Potassium Level 4.4, Chloride Level 104, Carbon Dioxide Level 24, Anion Gap 10, Blood Urea Nitrogen 17, Creatinine 0.76, Estimat Glomerular Filtration Rate 73, BUN/Creatinine Ratio 22, Glucose Level 92, Calcium Level 8.5, Corrected Calcium 9.3, Phosphorus Level 1.6L, Magnesium Level 2.0, Total Bilirubin 0.8, Aspartate Amino Transf (AST/SGOT) 19, Alanine Aminotransferase (ALT/SGPT) 11, Alkaline Phosphatase 70, Total Protein 5.8L, Albumin 3.0L 06/21/21 05:44: Blood Gas Puncture Site LEFT RADIAL, Blood Gas Patient Temperature 37.0, Arterial Blood pH 7.42, Arterial Blood Partial Pressure CO2 44, Arterial Blood Partial Pressure O2 63L, Arterial Blood HCO3 28H, Arterial Blood Total CO2 29.1, Arterial Blood Oxygen Saturation 94, Arterial Blood Base Excess 3.6H, Marquez Test YES-POS, Blood Gas Ventilator Setting NA, Blood Gas Inspired Oxygen NA Microbiology 06/20/21 MRSA Screen - Final, Complete MRSA not isolated LA POTTS MD Jun 21, 2021 09:41
[2021-06-21] MEDS ORDERED: FUROSEMIDE 40 MG/4 ML INJ (LASIX) ONE (10:10)
[2021-06-21] MEDS ORDERED: FUROSEMIDE 40 MG/4 ML INJ (LASIX) IVP ONE (10:15)
--- NOTE | 2021-06-21 11:08 | Cardiology Progress Note ---
Subjective Date Seen by Provider: Jun 21, 2021 Time Seen by Provider: 11:02 Subjective/Events-last exam Patient was seen at bedside, more awake today, feeling better. Having mild dyspnea. Review of Systems General: No Chills, No Night Sweats; Fatigue, Malaise; No Appetite, No Other HEENT: No Head Aches, No Visual Changes, No Eye Pain, No Ear Pain, No Dysphasia, No Sinus Congestion, No Post Nasal Drip, No Sore Throat, No Other Pulmonary: Dyspnea; No Cough, No Pleuritic Chest Pain, No Other Cardiovascular: No: Chest Pain, Palpitations, Orthopnea, Paroxysmal Noc. Dyspnea, Edema, Lt Headedness, Other Focused Exam Lactate Level 06/20/21 07:06: Lactic Acid Level 0.63 Objective-Cardiology Exam Last Set of Vital Signs Vital Signs 06/20/21 06/21/21 06/21/21 07:00 08:01 10:00 Temp 36.3 Pulse 65 Resp 23 B/P (MAP) 137/60 Pulse Ox 97 O2 Delivery High Flow N/C O2 Flow Rate 12.00 FiO2 10 I&O Intake and Output 06/21/21 00:00 Intake Total 1307.5 ml Output Total 850 ml Balance 457.5 ml Intake Oral 1000 ml IV Total 307.5 ml Output Urine Total 850 ml Daily Weight Change Unsure General: Alert, Oriented X3, Cooperative HEENT: Atraumatic, PERRLA Neck: Supple, No JVD, No Thyromegaly Lungs: Clear to Auscultation, Normal Air Movement Heart: Regular Rate, Normal S1, Normal S2, Other (Systolic murmur at the left sternal border) Abdomen: Normal Bowel Sounds, Soft, No Tenderness, No Hepatosplenomegaly, No Masses Extremities: No Clubbing, No Cyanosis, Normal Pulses, No Tenderness/Swelling, Other (Pedal edema) Skin: No Rashes, No Breakdown, No Significant Lesion Neuro: Normal Gait, Normal Speech, Strength at 5/5 X4 Ext, Normal Tone, Sensation Intact Psych/Mental Status: Mental Status NL, Mood NL Results Lab Laboratory Tests 06/21/21 04:15 A/P-Cardiology Admission Diagnosis Acute respiratory insufficiency Pneumonia Aortic valve stenosis Hypertension Assessment/Plan Status post acute respiratory insufficiency, hypoxemia, better today. Still requiring oxygen. Pneumonia, receiving cefepime. Managed by primary care Coronary artery disease with history of stent to LAD. Underwent cardiac catheterization in July 2017 in [place] revealing patent stent with nonobstructive disease. Continue to monitor. History of severe aortic valve stenosis, status post TAVR done September 06, 2017 in [place] with uneventful deployment of a 26 mm Medtronic Evolut Pro. Most recent 2D Echo 10/12/18 revealing mechanical prothesis present in aortic valve. Peak gradient across prosthetic valve is 26 mmHg, mean gradient 13mmHg, calculated valve area 2.41 cm squared. Mild AR. there is perivalvular regurg, Mod TR, Repeat 2D echo was done on June 20, 2021 showing moderate to severe LVH with normal systolic function, significant deterioration in the aortic valve with a peak gradient of 91 mmHg, valve area 1.4 cm. Mild mitral valve stenosis, pulmonary hypertension with PA pressure 50 to 55 mmHg Patient will need close monitoring and she probably will need another TAVR in the near future Paroxysmal atrial fibrillation, currently on Xarelto, Coreg and diltiazem. Continue to monitor HTP- 2D Echo done October 2018 with PA 45-55mmHg. Mild bilateral carotid stenosis, history of syncope. Last ultrasound was done in July 2018, continue to monitor. Sick sinus syndrome, history of permanent pacemaker. Continue to monitor. Hypertension, restart medications and continue to monitor. Hyperlipidemia, monitored as outpatient. Hypothyroidism, patient is maintained on amiodarone,continue to monitor. EDY GOOD MD Jun 21, 2021 11:08
[2021-06-22 05:09] LABS: BASOPHILS % (AUTO) 1 % (0-10); EOSINOPHILS # (AUTO) 0.3 10^3/uL (0.0-0.3); EOSINOPHILS % (AUTO) 4 % (0-10); HEMATOCRIT 27 % (35-52); HEMOGLOBIN 8.4 g/dL (11.5-16.0); LYMPHOCYTES # (AUTO) 0.8 10^3/uL (1.0-4.0); LYMPHOCYTES % (AUTO) 11 % (12-44); MEAN CORPUSCULAR HEMOGLOBIN 30 pg (25-34); MEAN CORPUSCULAR HGB CONC 31 g/dL (32-36); MEAN CORPUSCULAR VOLUME 97 fL (80-99); MEAN PLATELET VOLUME 9.7 fL (9.0-12.2); MONOCYTES # (AUTO) 0.9 10^3/uL (0.0-1.0); MONOCYTES % (AUTO) 12 % (0-12); NEUTROPHILS # (AUTO) 5.3 10^3/uL (1.8-7.8); NEUTROPHILS % (AUTO) 72 % (42-75); PLATELET COUNT 269 10^3/uL (130-400); WHITE BLOOD COUNT 7.4 10^3/uL (4.3-11.0)
[2021-06-22 05:22] LABS: ALBUMIN 3.1 GM/DL (3.2-4.5); POTASSIUM 4.2 MMOL/L (3.6-5.0)
[2021-06-22 05:23] LABS: CALCIUM 8.7 MG/DL (8.5-10.1)
[2021-06-22 05:24] LABS: TOTAL PROTEIN 5.9 GM/DL (6.4-8.2)
[2021-06-22 05:26] LABS: BILIRUBIN,TOTAL 0.8 MG/DL (0.1-1.0)
[2021-06-22 05:28] LABS: CREATININE SERUM 0.75 MG/DL (0.60-1.30)
[2021-06-22] MEDS ORDERED: IRON SUCROSE 200 MG/10 ML (VENOFER) VIAL IV ONE (06:00)
[2021-06-22] MEDS: LEVOTHYROXINE 75 MCG (LEVOTHROID) TABLET PO SCH (06:18)
[2021-06-22] MEDS: MULTIVIT W/MINERALS TAB (THERAGRAN M) PO SCH (06:18)
--- NOTE | 2021-06-22 07:01 | Diagnostic Imaging Report ---
INDICATION: Pneumonia. Comparison made with prior examination from 06/20/2021. FINDINGS: There is cardiomegaly. There is patchy right basal infiltrate. No pneumothorax. The mediastinum is unremarkable aside from the left hemithorax. IMPRESSION: Cardiomegaly and a patchy right base infiltrate suspect for pneumonia. Dictated by: Dictated on workstation # [id number]
[2021-06-22] MEDS ORDERED: TROUGH ORDER-PHARMACY XX NR (07:30)
[2021-06-22] MEDS: RIVAROXABAN 20 MG TABLET (XARELTO) PO SCH (07:48)
[2021-06-22] MEDS: KCL 10 MEQ TAB (MICRO K) PO SCH (07:49)
--- NOTE | 2021-06-22 08:09 | Progress Note ---
Standard Progress Note Progress Notes/Assess & Plan Date Seen by a Provider: Jun 22, 2021 Time Seen by a Provider: 08:08 Progress/Assessment & Plan feeling better lucid RLE--no calf tenderness. Neg Gabriela's incision clean and dry s/p R TKA with PNA PT/OT Focused Exam Lactate Level 06/20/21 07:06: Lactic Acid Level 0.63 ZO NEGRETE MD Jun 22, 2021 08:09
--- NOTE | 2021-06-22 08:32 | Cardiology Progress Note ---
Subjective Date Seen by Provider: Jun 22, 2021 Time Seen by Provider: 08:31 Subjective/Events-last exam Patient is laying down in bed, feeling better, asking to go home, reporting improvement in her symptoms Review of Systems General: No Chills, No Night Sweats; Fatigue, Malaise; No Appetite, No Other HEENT: No Head Aches, No Visual Changes, No Eye Pain, No Ear Pain, No Dysphasia, No Sinus Congestion, No Post Nasal Drip, No Sore Throat, No Other Pulmonary: No Dyspnea, No Cough, No Pleuritic Chest Pain, No Other Cardiovascular: No: Chest Pain, Palpitations, Orthopnea, Paroxysmal Noc. Dyspnea, Edema, Lt Headedness, Other Focused Exam Lactate Level 06/20/21 07:06: Lactic Acid Level 0.63 Objective-Cardiology Exam Last Set of Vital Signs Vital Signs 06/22/21 06/22/21 07:45 07:46 Temp 36.0 Pulse 61 Resp 18 B/P (MAP) 153/88 Pulse Ox 97 O2 Delivery High Flow N/C O2 Flow Rate 10.00 FiO2 97 I&O Intake and Output 06/22/21 00:00 Intake Total 3395 ml Output Total 2725 ml Balance 670 ml Intake Oral 1445 ml IV Total 1950 ml Output Urine Total 2725 ml General: Alert, Oriented X3, Cooperative, No Acute Distress HEENT: Atraumatic, PERRLA Neck: Supple, No JVD, No Thyromegaly Lungs: Other (crackles lower lobes, no tachypnea) Heart: Regular Rate, Normal S1, Other (Systolic murmur at the left sternal border) Abdomen: Normal Bowel Sounds, Soft, No Tenderness, No Hepatosplenomegaly, No M asses Extremities: No Clubbing, No Cyanosis, Normal Pulses, No Tenderness/Swelling, Other (Pedal edema) Skin: No Rashes, No Breakdown, No Significant Lesion Neuro: Normal Gait, Normal Speech, Strength at 5/5 X4 Ext, Normal Tone, Sensa tion Intact Psych/Mental Status: Other (subtle confusion, poor recall) Results Lab Laboratory Tests 06/22/21 04:30 A/P-Cardiology Admission Diagnosis Acute respiratory insufficiency Pneumonia Aortic valve stenosis Hypertension Assessment/Plan Status post acute respiratory insufficiency, hypoxemia, improved, feeling better. Pneumonia, receiving cefepime. Managed by primary care Coronary artery disease with history of stent to LAD. Underwent cardiac catheterization in July 2017 in [place] revealing patent stent with nonobstructive disease. Continue to monitor. History of severe aortic valve stenosis, status post TAVR done September 06, 2017 in [place] with uneventful deployment of a 26 mm Medtronic Evolut Pro. Most recent 2D Echo 10/12/18 revealing mechanical prothesis present in aortic valve. Peak gradient across prosthetic valve is 26 mmHg, mean gradient 13mmHg, calculated valve area 2.41 cm squared. Mild AR. there is perivalvular regurg, Mod TR, Repeat 2D echo was done on June 20, 2021 showing moderate to severe LVH with normal systolic function, significant deterioration in the aortic valve with a peak gradient of 91 mmHg, valve area 1.4 cm. Mild mitral valve stenosis, pulmonary hypertension with PA pressure 50 to 55 mmHg Patient will need close monitoring and she probably will need another TAVR in the near future Paroxysmal atrial fibrillation, currently on Xarelto, Coreg and diltiazem. Continue to monitor HTP- 2D Echo done October 2018 with PA 45-55mmHg. Mild bilateral carotid stenosis, history of syncope. Last ultrasound was done in July 2018, continue to monitor. Sick sinus syndrome, history of permanent pacemaker. Continue to monitor. Hypertension, restart medications and continue to monitor. Hyperlipidemia, monitored as outpatient. Hypothyroidism, patient is maintained on amiodarone,continue to monitor. EDY GOOD MD Jun 22, 2021 08:32
[2021-06-22] MEDS: polyethylene glycoL POWDER 17 GM (MIRALAX) PACK PO SCH ×2 (09:08→20:46)
[2021-06-22] MEDS: ASPIRIN E.C. 81 MG (ECOTRIN) TAB PO SCH (09:09)
[2021-06-22] MEDS: VANCOMYCIN 750 MG/NS 250 ML IVPB IV SCH ×2 (09:09)
[2021-06-22] MEDS: CEFEPIME INJECTION 2,000 MG in NS (IVPB) 50 ML IV SCH ×2 (09:09→20:46)
[2021-06-22] MEDS: SENNA W/DOCUSATE (SENOKOT S) TABLET PO SCH ×2 (09:09→20:46)
[2021-06-22] MEDS: GABAPENTIN 100 MG (NEURONTIN) CAP PO SCH ×2 (09:09→20:46)
[2021-06-22] MEDS: FAMOTIDINE 20 MG (PEPCID) TABLET PO SCH (09:09)
--- NOTE | 2021-06-22 10:19 | Progress Note ---
Subjective Date Seen by a Provider: Jun 22, 2021 Time Seen by a Provider: 10:00 Subjective/Events-last exam Pt doing well Transferring to fourth floor Dr. Dixon evaluated the Echo and found the aortic stenosis to have returned She last have a TVAR three years ago Dr. Dixon had an echo of the patient from six months ago and it was normal Pt doing a lot better Review of Systems General: Fatigue, Malaise Pulmonary: Dyspnea Neurological: Weakness, Confusion Focused Exam Lactate Level 06/20/21 07:06: Lactic Acid Level 0.63 Objective Exam Last Set of Vital Signs Vital Signs Date Time Temp Pulse Resp B/P (MAP) Pulse Ox O2 Delivery O2 Flow Rate FiO2 06/22/21 10:11 High Flow N/C 8.00 06/22/21 07:46 97 06/22/21 07:45 36.0 61 18 153/88 97 Capillary Refill : Less Than 3 Seconds I&O Intake and Output 06/22/21 00:00 Intake Total 3395 ml Output Total 2725 ml Balance 670 ml Intake Oral 1445 ml IV Total 1950 ml Output Urine Total 2725 ml General: Alert, Oriented X3, Cooperative, No Acute Distress Lungs: Clear to Auscultation, Normal Air Movement, Other (Crackles bases) Heart: Regular Rate Psych/Mental Status: Mental Status NL (Much improved) Results Lab Laboratory Tests 06/22/21 04:30: White Blood Count 7.4, Red Blood Count 2.77L, Hemoglobin 8.4L, Hematocrit 27L, Mean Corpuscular Volume 97, Mean Corpuscular Hemoglobin 30, Mean Corpuscular Hemoglobin Concent 31L, Red Cell Distribution Width 13.9, Platelet Count 269, Mean Platelet Volume 9.7, Immature Granulocyte % (Auto) 1, Neutrophils (%) (Auto) 72, Lymphocytes (%) (Auto) 11L, Monocytes (%) (Auto) 12, Eosinophils (%) (Auto) 4, Basophils (%) (Auto) 1, Neutrophils # (Auto) 5.3, Lymphocytes # (Auto) 0.8L, Monocytes # (Auto) 0.9, Eosinophils # (Auto) 0.3, Basophils # (Auto) 0.0, Immature Granulocyte # (Auto) 0.0, Sodium Level 141, Potassium Level 4.2, Chloride Level 103, Carbon Dioxide Level 27, Anion Gap 11, Blood Urea Nitrogen 16, Creatinine 0.75, Estimat Glomerular Filtration Rate 74, BUN/Creatinine Ratio 21, Glucose Level 104, Calcium Level 8.7, Corrected Calcium 9.4, Magnesium Level 2.0, Total Bilirubin 0.8, Aspartate Amino Transf (AST/SGOT) 18, Alanine Aminotransferase (ALT/SGPT) 11, Alkaline Phosphatase 78, Total Protein 5.9L, Albumin 3.1L 06/22/21 07:18: Vancomycin Level Trough 14.7 Microbiology 06/20/21 Blood Culture - Preliminary, Resulted No growth 06/20/21 MRSA Screen - Final, Complete MRSA not isolated Assessment/Plan Assessment/Plan Assess & Plan/Chief Complaint Assessment: Acute respiratory distress PNA on CXR Tuesday and PCT elevated but negative the day before with CXR and PCT normal Sepsis Elevated BNP acute on chronic CHF Pacemaker Previous TVAR for aortic stenosis and current echo report severe aortic stenosis again may need repeat procedure AF OAC disrupted due to ortho surgery so required CT angiogram to r/o PE which was negative for PE Dementia? 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
--- NOTE | 2021-06-22 10:24 | Tele-ICU Progress Note ---
Subjective Date Seen by a Provider: Jun 22, 2021 Time Seen by a Provider: 10:23 Sepsis Event Evaluation Height, Weight, BMI Height: 5'9.00" Weight: 171lbs. 9.0oz. 77.608537ak; 25.26 BMI Method:Stated Focused Exam Lactate Level 06/20/21 07:06: Lactic Acid Level 0.63 Exam Exam Patient acknowledged, consented, and participated in this virtual visit which was conducted using real time audio/video Vital Signs Date Time Temp Pulse Resp B/P (MAP) Pulse Ox O2 Delivery O2 Flow Rate FiO2 06/22/21 10:11 High Flow N/C 8.00 06/22/21 07:46 High Flow N/C 10.00 97 06/22/21 07:45 36.0 61 18 153/88 97 High Flow N/C 10.00 06/22/21 07:00 61 06/22/21 06:21 60 16 92 High Flow N/C 12.00 06/22/21 04:00 High Flow N/C 12.00 96 06/22/21 04:00 36.1 06/22/21 01:00 60 06/22/21 00:00 60 16 156/68 High Flow N/C 12.00 06/22/21 00:00 High Flow N/C 12.00 98 06/21/21 20:52 98 High Flow N/C 12.00 06/21/21 20:00 37.2 06/21/21 20:00 60 16 128/57 High Flow N/C 12.00 06/21/21 20:00 High Flow N/C 12.00 06/21/21 19:00 80 06/21/21 16:25 36.8 06/21/21 16:00 High Flow N/C 12.00 06/21/21 16:00 64 16 143/64 High Flow N/C 12.00 06/21/21 15:00 62 30 127/77 94 High Flow N/C 12.00 06/21/21 14:00 60 18 155/66 98 High Flow N/C 12.00 06/21/21 13:00 65 23 159/69 93 High Flow N/C 12.00 06/21/21 12:27 63 06/21/21 12:00 60 19 147/87 95 High Flow N/C 12.00 06/21/21 11:19 High Flow N/C 12.00 06/21/21 11:00 71 27 158/76 96 High Flow N/C 12.00 I & O 06/22/21 07:00 Intake Total 3245 ml Output Total 2650 ml Balance 595 ml Height & Weight Height: 5'9.00" Weight: 171lbs. 9.0oz. 77.852094uf; 25.26 BMI Method:Stated General Appearance: No Apparent Distress, WD/WN, Anxious, Chronically ill, Mild Distress HEENT: PERRL/EOMI, Normal ENT Inspection, Pharynx Normal Neck: Full Range of Motion, Normal Inspection, Non Tender, Supple, Carotid Bruit Respiratory: Chest Non Tender, No Accessory Muscle Use, No Respiratory Distress , Crackles, Decreased Breath Sounds, Wheezing Cardiovascular: Regular Rate, Rhythm, No Edema, No Gallop, No JVD, No Murmur, Normal Peripheral Pulses Capillary Refill: Less Than 3 Seconds Extremity: Normal Capillary Refill, Normal Inspection, Normal Range of Motion, Non Tender, No Calf Tenderness, No Pedal Edema Neurologic/Psychiatric: Alert, Oriented x3, No Motor/Sensory Deficits, ship cleaner II- XII Norm as Tested, Depressed Affect, Disoriented Skin: Normal Color, Warm/Dry Lymphatic: No Adenopathy Results Lab Laboratory Tests 06/21/21 04:15 06/22/21 04:30 Assessment/Plan Assessment/Plan (Tele-ICU Physician , Progress Note ) Available chart/ vitals / labs / Images reviewed Video assessment done using teleICU camera, rest of exam as per RN Discussed with RN , EXAM PER RN Events overnight : Afebrile FiO2 - I/O = Drips: Pressors: , hemodynamically stable Consultants: Hospital course: 06/20 - to ICU with PNA , 12 l NC A/P Aciute hypoxic resp failure ( PNA RLL , no PE on CT 06/20 - lNC - to 8 L PNA - blood cx neg 08/20 - cefepime 06/20 - vanco ( mrsa asb neg ) Afib . SS = pacemaker - rated controlled -AC with Xarelto CAD - EF WNL s/p TAVR 2017 -significant deterioration in the aortic valve- might need intervention - as per cards Pulm HTN PA 50 to 55 mmHg Lines : (Central Line Necessity Reviewed) Miles: to remove today OG: Nutrition: Analgesia: Anxiety/ delirium xana VTE Prophylaxis: xarelto Stress Ulcer Prophylaxis: pepcid Glycemic Control: Plans in collaboration with bedside consultants and IM MDs. Discussed with RN to reach out if any questions or concerns A total of 25 minutes of critical care time was devoted to this patient today, required to treat and/or prevent further deterioration of critical care condition ( as above) . VERONA TOMLINSON MD Jun 22, 2021 10:24
[2021-06-22] MEDS: RT-ALBUTEROL SULF 2.5 MG/3 ML PRE-MIX VIAL INH SCH ×2 (10:32→21:55)
--- NOTE | 2021-06-22 11:06 | Physical Therapy Evaluation ---
PT Evaluation-General Medical Diagnosis Admission Date Jun 20, 2021 at 06:00 Medical Diagnosis: respiratory distress/right TKR Onset Date: Jun 20, 2021 Therapy Diagnosis Therapy Diagnosis: debility/weakness Height/Weight Height (Feet): 5 Height (Inches): 9.00 Weight (Pounds): 171 Weight (Ounces): 9.0 Precautions Precautions/Isolations: Fall Prevention, Standard Precautions Weight Bear Status Right Lower Extremity: Right Weight Bearing/Tolerated Referral Physician: Bandar Reason for Referral: Evaluation/Treatment Medical History Pertinent Medical History: Atrial Fib, CAD, Heart Failure, HTN, Hypothroidism Current History transfer from ARU to ICU secondary to respiratory distress Reviewed History: Yes Social History Home: Single Level Current Living Status: Spouse Prior Prior Level of Function SCALE: Activities may be completed with or without assistive devices. 8-Onwjlchsrh-mrzeswv completes the activity by him/herself with no assistance from a helper. 5-Set-up or Clean-up Assistance-helper sets up or cleans up; patient completes activity. [place] assists only prior to or following the activity. 4-Supervision or Touching Assistance-helper provides verbal cues and/or touching/steadying and/or contact guard assistance as patient completes activi ty. Assistance may be provided throughout the activity or intermittently. 3-Partial/Moderate Assistance-helper does LESS THAN HALF the effort. [place] lifts, holds or supports trunk or limbs, but provides less than half the effort. 2-Substantial/Maximal Assistance-helper does MORE THAN HALF the effort. [place] lifts or holds trunk or limbs and provides more than half the effort. 0-Gnmiffpbo-sytvew does ALL the effort. Patient does none of the effort to complete the activity. Or, the assistance of 2 or more helpers is required for the patient to complete the activity. If activity was not attempted, code reason: 7-Patient Refused. 9-Not Applicable-not attempted and the patient did not perform the activity before the current illness, exacerbation or injury. 10-Not Attempted due to Environmental Limitations-(lack of equipment, weather restraints, etc.). 88-Not Attempted due to Medical Conditions or Safety Concerns. Bed Mobility: 6 Transfers (B,C,W/C): 6 Gait: 6 Stairs: 6 PT Evaluation-Current Subjective Patient very alert and agrees to PT. Pain Numeric Pain Scale: 5-Moderate Pain Location: Right Location Body Site: Knee Pain Description: Acute Objective Patient Orientation: Normal For Age Attachments: Oxygen (10L HF), Miles Catheter ROM/Strength ROM Lower Extremities right knee flexion 74 degrees with 10 degrees extension/left LE WFL Strength Lower Extremities right knee 3-/5 grossly/left LE 3+/5 grossly Integumentary/Posture Integumentary refer to nursing notes Bowel Incontinence: No Bladder Incontinence: Miles Cath Posture trunk flexed posture Neuromuscular (Tone, Coordination, Reflexes) grossly intact Sensory Vision: Wears Glasses Hearing: Impaired Transfers Roll Left to Right (QC): 4 Sit to Lying (QC): 4 Lying to Sitting/Side of Bed(Q: 4 Sit to Stand (QC): 3 Chair/Wxm-xk-Rqwiq Xfer(QC): 3 Gait Does the Patient Walk?: Yes Mode of Locomotion: Walk Anticipated Mode of Locomotion: Walk Walk 10 feet (QC): 3 Walk 50 ft with 2 Turns(QC): 88 Walk 150 ft (QC): 88 Distance: 10' x 2 Gait Assistive Device: FWW Comments/Gait Description steady/antalgic Balance Sitting Static: Normal Sitting Dynamic: Normal Standing Static: Fair Standing Dynamic: Fair Assessment/Needs 80 y.o. female, will benefit from skilled PT to address functional strength and mobility to improve current LOF to safely return to home with spouse at maximum LOF. Rehab Potential: Fair PT Chiropractic Care Goals Chiropractic Care Goals PT Chiropractic Care Goals Time Frame: Jul 11, 2021 Roll Left & Right (QC): 6 Sit to Lying (QC): 6 Lying-Sitting on Side/Bed(QC): 6 Sit to Stand (QC): 6 Chair/Eff-uz-Bgqbn Xfer(QC): 6 Toilet Transfer (QC): 6 Walk 10 feet (QC): 6 Walk 50ft with 2 Turns (QC): 6 Walk 150 ft (QC): 6 1 Step (curb) (QC): 4 4 Steps (QC): 4 PT Plan Problem List Problem List: Activity Tolerance, Functional Strength, Safety, Balance, Gait, Transfer, Bed Mobility, ROM Treatment/Plan Treatment Plan: Continue Plan of Care Treatment Plan: Bed Mobility, Education, Functional Activity Gilda, Functional Strength, Gait, Safety, Therapeutic Exercise, Transfers Treatment Duration: Jul 11, 2021 Frequency: 11 times per week Estimated Hrs Per Day: .5 hour per day Patient and/or Family Agrees t: Yes Time/GCodes Time In: 825 Time Out: 845 Total Billed Treatment Time: 20 Total [facility] T[facility]TER[facility] PT Jun 22, 2021 11:06
--- NOTE | 2021-06-22 12:00 | Occupational Therapy Eval ---
OT Evaluation-General/PLF Medical Diagnosis Admission Date Jun 20, 2021 at 06:00 Medical Diagnosis: respiratory distress/right TKR Onset Date: Jun 20, 2021 Therapy Diagnosis Therapy Diagnosis: decreased ADL status Height/Weight Height (Feet): 5 Height (Inches): 9.00 Weight (Pounds): 171 Weight (Ounces): 9.0 Precautions Precautions/Isolations: Fall Prevention, Standard Precautions Weight Bear Status Weight Bearing Restriction: Weight Bearing/Tolerated Referral Physician: Bandar Referral Reason: Evaluation/Treatment Medical History Pertinent Medical History: Atrial Fib, CAD, Heart Failure, HTN, Hypothroidism Additional Medical History s/p R TKA 06/17/21, Transferred to ARU 06/18/21, then transferred to ICU 06/20/21 due to increased O2 requirement, new onset hypoxia. Current History coronary stent, afib, HTN, hypothyroidism Social History Home: Single Level Current Living Status: Spouse Entry Into Home: Stairs With Railing Steps Into Home: 3 ADL-Prior Level of Function SCALE: Activities may be completed with or without assistive devices. 3-Erwaogwcmy-nxikwrh completes the activity by him/herself with no assistance from a helper. 5-Set-up or Clean-up Assistance-helper sets up or cleans up; patient completes activity. [place] assists only prior to or following the activity. 4-Supervision or Touching Assistance-helper provides verbal cues and/or touching/steadying and/or contact guard assistance as patient completes activity. Assistance may be provided throughout the activity or intermittently. 3-Partial/Moderate Assistance-helper does LESS THAN HALF the effort. [place] lifts, holds or supports trunk or limbs, but provides less than half the effort. 2-Substantial/Maximal Assistance-helper does MORE THAN HALF the effort. [place] lifts or holds trunk or limbs and provides more than half the effort. 9-Apigfkxlw-ovpmil does ALL the effort. Patient does none of the effort to complete the activity. Or, the assistance of 2 or more helpers is required for the patient to complete the activity. If activity was not attempted, code reason: 7-Patient Refused. 9-Not Applicable-not attempted and the patient did not perform the activity before the current illness, exacerbation or injury. 10-Not Attempted due to Environmental Limitations-(lack of equipment, weather restraints, etc.). 88-Not Attempted due to Medical Conditions or Safety Concerns. ADL PLOF Comments IND with ADLs and functional mobility using FWW at PLOF. Self Care: Independent Functional Cognition: Independent DME/Equipment: Bath Bench, Grab Bars, Shower DME/Equipment Comments FWW OT Current Status Subjective Pt in bed, at first pt held arms open as therapist entered room, in a "hugging" gesture. OT asked pt if she knew who she was, pt replied yes. Later in conversation, pt revealed she believed this therapist was a granddaughter. Pt tearful upon realization, requesting for her spouse to get her out of the hospital, as she feels like she is going crazy from the medication. OT attempted to provide therapeutic listening and reassurance. Mental Status/Objective Patient Orientation: Person, Confused, Place, Situation Attachments: Oxygen, Telemetry Current Glasses/Contacts: Yes Dentures/Partials: Yes Hand Dominance: Right Upper Extremity ROM WFL ADL-Treatment Eating (QC): 5 (Per clincial judgment with liquid diet.) Oral Hygiene (QC): 5 (set up with denture cleaning.) Other Treatments Pt in bed, family members present. Pt confuses this therapist for her granddaughter, and gets tearful. Pt requesting for to get her out of the hospital as she feels like the medications are making her crazy. OT reassured pt that she was more herself today and that OT was present to assist her with going home independently. OT provided pt with wet wash cloth, she was able to wash her face/eyes after set up assist. Pt requests to complete oral care. OT provided pt with basin, cup of water, toothbrush and toothpaste. Pt completed after set up assistance, requesting for therapist and to look away as she removed her dentures. Pt requests to rest. Post tx, pt in bed, call light in reach and all needs met, family present Education OT Patient Education: Correct positioning, Modified ADL techniques, Progress toward Goal/Update tx plan, Purpose of tx/functional activities, Rehab process Teaching Recipient: Patient Teaching Methods: Discussion Response to Teaching: Reinforcement Needed OT Senior Care Goals Planning And Analysis Manager Goals Time Frame: Jul 03, 2021 Eating (QC): 6 Oral Hygiene (QC): 6 Toileting Hygiene (QC): 6 Shower/Bathe Self (QC): 4 Upper Body Dressing (QC): 5 Lower Body Dressing (QC): 4 On/Off Footwear (QC): 4 Additional Goals: 1-Demonstrate ADL Tasks, 2-Verbalize Understanding, 3- ImproveStrength/Gilda 1=Demonstrate adherence to instructed precautions during ADL tasks. 2=Patient will verbalize/demonstrate understanding of assistive devices/modifications for ADL. 3=Patient will improve strength/tolerance for activity to enable patient to perform ADL's. OT Education/Plan Problem List/Assessment Assessment: Decreased Activ Tolerance, Decreased UE Strength, Impaired Cogni tion, Impaired Funct Balance, Impaired I ADL's, Impaired Self-Care Skills Discharge Recommendations Plan/Recommendations: Continue POC Treatment Plan/Plan of Care Patient would benefit from OT for education, treatment and training to promote independence in ADL's, mobility, safety and/or upper extremity function for ADL's. Plan of Care: ADL Retraining, Functional Mobility, UE Funct Exercise/Act Treatment Duration: Jul 03, 2021 Frequency: 5 times per week Estimated Hrs Per Day: .25 hour per day Rehab Potential: Fair Time/GCodes Start Time: 10:56 Stop Time: 11:16 Total Time Billed (hr/min): 20 Billed Treatment Time 1, DOUG CHANDLER OT Jun 22, 2021 12:00
--- NOTE | 2021-06-22 14:24 | Physical Therapy Daily Note ---
PT Daily Note-Current Subjective Increase in confusion and agitation. Mental Status Patient Orientation: Confused Attachments: Miles Catheter, Polar Pack, IV Transfers SCALE: Activities may be completed with or without assistive devices. 9-Ovrpelddjm-tjuvrqq completes the activity by him/herself with no assistance from a helper. 5-Set-up or Clean-up Assistance-helper sets up or cleans up; patient completes activity. [place] assists only prior to or following the activity. 4-Supervision or Touching Assistance-helper provides verbal cues and/or touching/steadying and/or contact guard assistance as patient completes activity. Assistance may be provided throughout the activity or intermittently. 3-Partial/Moderate Assistance-helper does LESS THAN HALF the effort. [place] lifts, holds or supports trunk or limbs, but provides less than half the effort. 2-Substantial/Maximal Assistance-helper does MORE THAN HALF the effort. [place] lifts or holds trunk or limbs and provides more than half the effort. 2-Khhwoocwx-ylodsb does ALL the effort. Patient does none of the effort to complete the activity. Or, the assistance of 2 or more helpers is required for the patient to complete the activity. If activity was not attempted, code reason: 7-Patient Refused. 9-Not Applicable-not attempted and the patient did not perform the activity before the current illness, exacerbation or injury. 10-Not Attempted due to Environmental Limitations-(lack of equipment, weather restraints, etc.). 88-Not Attempted due to Medical Conditions or Safety Concerns. Weight Bearing Right Lower Extremity: Right Weight Bearing/Tolerated Exercises Supine Ex: Ankle pumps, Quad Set, Heel Slides, Straight leg raise Supine Reps: 15 (2 sets AAROM right LE) Treatments CPM 0-80 degrees Assessment Patient is not safe for OOB activity due to increase confusion and agitation. Increase activity as tolerated by patient. PT Websphere Architect Goals Websphere Architect Goals PT Skilled Nursing Goals Time Frame: Jul 11, 2021 Roll Left & Right (QC): 6 Sit to Lying (QC): 6 Lying-Sitting on Side/Bed(QC): 6 Sit to Stand (QC): 6 Chair/Vnn-fb-Gfsvi Xfer(QC): 6 Toilet Transfer (QC): 6 Walk 10 feet (QC): 6 Walk 50ft with 2 Turns (QC): 6 Walk 150 ft (QC): 6 1 Step (curb) (QC): 4 4 Steps (QC): 4 PT Plan Treatment/Plan Treatment Plan: Continue Plan of Care Treatment Plan: Bed Mobility, Education, Functional Activity Gilda, Functional Strength, Gait, Safety, Therapeutic Exercise, Transfers Treatment Duration: Jul 11, 2021 Frequency: 11 times per week Estimated Hrs Per Day: .5 hour per day Patient and/or Family Agrees t: Yes Time/GCodes Time In: 1300 Time Out: 1317 Total Billed Treatment Time: 17 Total Billed Treatment 1 visit EX 17 min TOVA MONTERO PT Jun 22, 2021 14:24
--- NOTE | 2021-06-22 18:22 | Physician Query Clarification ---
Physician Query-General Query to Physician: The medical record reflects the following clinical scenario: The patient, in the setting of History/Risk factors, Pneumonia, Sepsis, Recent ortho surgery, Clinical Findings 96% on 10 0n admission, RR 28 increasing 02 requirements up to 12L with 02 Sats 94% to 97%, (P/F approx 100-120) with RR 20 to 30's, SOA at rest, per nursing, Treatment Supplemental 02, IV ABX, Breathing RX, Question: Do you agree with the impression of Acute Hypoxic Respiratory Failure per Dr. Dallin Block, Dr. Pau Bar? 1. Yes; will document Acute Hypoxic Respiratory Failure, present on admission yes in the Progress Notes. 2. No; will continue to document Acute Respiratory Distress in the Progress No gordon 3. Other; will document explanation of clinical findings 4. Clinically undetermined; no explanation for clinical findings Please clarify and document your clinical opinion in the Progress Notes and Discharge Summary including the definitive and/or presumptive diagnosis, (suspected or probable), related to the above clinical findings. Please include clinical findings supporting your diagnosis. In responding to this query, please exercise your independent professional judgment. The purpose of this communication is to more accurately reflect the complexity of your patients condition. The fact that a question is asked does not imply that any particular answer is desired or expected. Please remember a lack of response to the above will prompt a phone page by CDI/coding staff Thank you for timely response to this clarification. Tammy Marmolejo MSN, RN Clinical Medical Supervisor [phone] [email or web address] PHYSICIAN RESPONSE: Based on the clinical findings in the record, please respond to the query above on this document as an addendum. Physician Response: Physician Response 1 If you have questions please contact: Coverer: Ext: Thank you for your time and cooperation. Clinical Medical Supervisor/Coverer This is a permanent part of the medical record TAMMY MARMOLEJO Jun 22, 2021 18:22 DAYA VILLEGAS DO Jun 22, 2021 20:08
[2021-06-22] MEDS: ACETAMINOPHEN 325 MG TABLET PO PRN (19:42)
[2021-06-22] MEDS: oxyCODONE/APAP 5/325MG (PERCOCET 5) TABLET PO PRN (22:48)
[2021-06-23] MEDS: LEVOTHYROXINE 75 MCG (LEVOTHROID) TABLET PO SCH (05:57)
[2021-06-23] MEDS: MULTIVIT W/MINERALS TAB (THERAGRAN M) PO SCH (05:57)
[2021-06-23 06:04] LABS: BASOPHILS # (AUTO) 0.1 10^3/uL (0.0-0.1); BASOPHILS % (AUTO) 1 % (0-10); EOSINOPHILS # (AUTO) 0.3 10^3/uL (0.0-0.3); EOSINOPHILS % (AUTO) 4 % (0-10); HEMATOCRIT 27 % (35-52); HEMOGLOBIN 8.4 g/dL (11.5-16.0); LYMPHOCYTES # (AUTO) 1.1 10^3/uL (1.0-4.0); LYMPHOCYTES % (AUTO) 16 % (12-44); MEAN CORPUSCULAR HEMOGLOBIN 30 pg (25-34); MEAN CORPUSCULAR HGB CONC 31 g/dL (32-36); MEAN CORPUSCULAR VOLUME 97 fL (80-99); MONOCYTES # (AUTO) 0.9 10^3/uL (0.0-1.0); MONOCYTES % (AUTO) 13 % (0-12); NEUTROPHILS # (AUTO) 4.8 10^3/uL (1.8-7.8); NEUTROPHILS % (AUTO) 66 % (42-75); PLATELET COUNT 320 10^3/uL (130-400); WHITE BLOOD COUNT 7.3 10^3/uL (4.3-11.0)
[2021-06-23 06:17] LABS: ALBUMIN 3.2 GM/DL (3.2-4.5); POTASSIUM 4.1 MMOL/L (3.6-5.0)
[2021-06-23 06:18] LABS: CALCIUM 9.1 MG/DL (8.5-10.1)
[2021-06-23 06:19] LABS: TOTAL PROTEIN 6.2 GM/DL (6.4-8.2)
[2021-06-23 06:21] LABS: BILIRUBIN,TOTAL 0.8 MG/DL (0.1-1.0)
[2021-06-23 06:23] LABS: CREATININE SERUM 0.83 MG/DL (0.60-1.30)
[2021-06-23 06:26] LABS: MAGNESIUM 2.2 MG/DL (1.6-2.4)
[2021-06-23] MEDS: RT-ALBUTEROL SULF 2.5 MG/3 ML PRE-MIX VIAL INH SCH (08:12)
[2021-06-23 08:17] VITALS: BP 127/53
--- NOTE | 2021-06-23 08:41 | Cardiology Progress Note ---
Subjective Date Seen by Provider: Jun 23, 2021 Time Seen by Provider: 08:30 Subjective/Events-last exam Patient sitting up in bed, receiving breathing treatment. Conitnues to improve. Denies any chest pain Review of Systems General: No Chills, No Night Sweats, No Fatigue, No Malaise, No Appetite, No Other HEENT: No Head Aches, No Visual Changes, No Eye Pain, No Ear Pain, No Dysphasia, No Sinus Congestion, No Post Nasal Drip, No Sore Throat, No Other Pulmonary: No Dyspnea, No Cough, No Pleuritic Chest Pain, No Other Cardiovascular: No: Chest Pain, Palpitations, Orthopnea, Paroxysmal Noc. Dyspnea, Edema, Lt Headedness, Other Objective-Cardiology Exam Last Set of Vital Signs Vital Signs 06/22/21 06/23/21 06/23/21 06/23/21 20:00 07:47 08:16 08:17 Temp 36.7 Pulse 63 Resp 18 B/P (MAP) 127/53 Pulse Ox 97 O2 Delivery High Flow N/C O2 Flow Rate 5.00 FiO2 95 I&O Intake and Output 06/23/21 00:00 Intake Total 1140 ml Output Total 2025 ml Balance -885 ml Intake Oral 1140 ml Output Urine Total 2025 ml # Bowel Movements 1 General: Alert, Oriented X3, Cooperative, No Acute Distress HEENT: Atraumatic, PERRLA Neck: Supple, No JVD, No Thyromegaly Lungs: Clear to Auscultation, Normal Air Movement, Other (Crackles bases) Heart: Regular Rate Abdomen: Normal Bowel Sounds, Soft, No Tenderness, No Hepatosplenomegaly, No Masses Extremities: No Clubbing, No Cyanosis, Normal Pulses, No Tenderness/Swelling, Other (Pedal edema) Skin: No Rashes, No Breakdown, No Significant Lesion Neuro: Normal Gait, Normal Speech, Strength at 5/5 X4 Ext, Normal Tone, Sensation Intact Psych/Mental Status: Mental Status NL (Much improved) Results Lab Laboratory Tests 06/23/21 05:35 A/P-Cardiology Admission Diagnosis Acute respiratory insufficiency Pneumonia Aortic valve stenosis Hypertension Assessment/Plan Status post acute respiratory insufficiency, hypoxemia, improved, feeling better. Pneumonia, receiving cefepime. Managed by primary care Coronary artery disease with history of stent to LAD. Underwent cardiac catheterization in July 2017 in [place] revealing patent stent with nonobstructive disease. Continue to monitor. 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 Most recent 2D Echo 10/12/18 revealing mechanical prothesis present in aortic valve. Peak gradient across prosthetic valve is 26 mmHg, mean gradient 13mmHg, calculated valve area 2.41 cm squared. Mild AR. there is perivalvular regurg, Mod TR, Repeat 2D echo was done on June 20, 2021 showing moderate to severe LVH with normal systolic function, significant deterioration in the aortic valve with a peak gradient of 91 mmHg, valve area 1.4 cm. Mild mitral valve stenosis, pulmonary hypertension with PA pressure 50 to 55 mmHg Patient will need close monitoring and she probably will need another TAVR in the near future Paroxysmal atrial fibrillation, currently on Xarelto, Coreg and diltiazem. Continue to monitor HTP- 2D Echo done June 2021 with PA 50-55mmHg. Mild bilateral carotid stenosis, history of syncope. Last ultrasound was done in July 2018, continue to monitor. Sick sinus syndrome, history of permanent pacemaker. Continue to monitor. Hypertension, restart medications and continue to monitor. Hyperlipidemia, monitored as outpatient. Hypothyroidism, patient is maintained on amiodarone,continue to monitor. Supervisory-Addendum Brief Supervisory Addendum Participated in pt care: history, MDM, physical Personally performed: exam, history, MDM Care discussed with: ANUM Results interpretation: Verified all documentation Notes: Patient was seen and evaluated with Kim, examination performed, management plan was discussed, agree with the current scribed note, I made few changes to the note using Italic font Patient was seen at bedside, sitting comfortably, feeling better, reporting improvement in her symptoms No chest pain or shortness of breath. No palpitation Breathing is better Discussed her progressive aortic stenosis in the implanted valve. KIM SAAVEDRA Jun 23, 2021 08:41 EDY GOOD MD Jun 23, 2021 09:29
[2021-06-23] MEDS: ASPIRIN E.C. 81 MG (ECOTRIN) TAB PO SCH (08:56)
[2021-06-23] MEDS: SENNA W/DOCUSATE (SENOKOT S) TABLET PO SCH (08:57)
[2021-06-23] MEDS: FAMOTIDINE 20 MG (PEPCID) TABLET PO SCH (08:59)
[2021-06-23] MEDS: KCL 10 MEQ TAB (MICRO K) PO SCH (08:59)
[2021-06-23] MEDS: oxyCODONE/APAP 5/325MG (PERCOCET 5) TABLET PO PRN (08:59)
[2021-06-23] MEDS: RIVAROXABAN 20 MG TABLET (XARELTO) PO SCH (09:00)
[2021-06-23] MEDS: GABAPENTIN 100 MG (NEURONTIN) CAP PO SCH (09:00)
[2021-06-23] MEDS: CEFEPIME INJECTION 2,000 MG in NS (IVPB) 50 ML IV SCH (09:00)
[2021-06-23] MEDS: polyethylene glycoL POWDER 17 GM (MIRALAX) PACK PO SCH (09:01)
--- NOTE | 2021-06-23 10:06 | Physical Therapy Daily Note ---
PT Daily Note-Current Subjective Patient agrees to PT. Noted confusion. Pain Numeric Pain Scale: 5-Moderate Pain Location: Right Location Body Site: Knee Pain Description: Acute Mental Status Patient Orientation: Confused Attachments: Oxygen (5L NC HF) Transfers SCALE: Activities may be completed with or without assistive devices. 3-Ycfjgfpjmi-bwwfiko completes the activity by him/herself with no assistance from a helper. 5-Set-up or Clean-up Assistance-helper sets up or cleans up; patient completes activity. [place] assists only prior to or following the activity. 4-Supervision or Touching Assistance-helper provides verbal cues and/or touching/steadying and/or contact guard assistance as patient completes activity. Assistance may be provided throughout the activity or intermittently. 3-Partial/Moderate Assistance-helper does LESS THAN HALF the effort. [place] lifts, holds or supports trunk or limbs, but provides less than half the effort. 2-Substantial/Maximal Assistance-helper does MORE THAN HALF the effort. [place] lifts or holds trunk or limbs and provides more than half the effort. 9-Pmmkassmt-zakogm does ALL the effort. Patient does none of the effort to complete the activity. Or, the assistance of 2 or more helpers is required for the patient to complete the activity. If activity was not attempted, code reason: 7-Patient Refused. 9-Not Applicable-not attempted and the patient did not perform the activity before the current illness, exacerbation or injury. 10-Not Attempted due to Environmental Limitations-(lack of equipment, weather restraints, etc.). 88-Not Attempted due to Medical Conditions or Safety Concerns. Lying to Sitting/Side of Bed(Q: 3 Sit to Stand (QC): 3 Chair/Tfx-mw-Hrkvu Xfer(QC): 3 4 episodes of backward LOB with PT correct Weight Bearing Right Lower Extremity: Right Weight Bearing/Tolerated Gait Training Does the Patient Walk?: Yes Distance: 175' Walk 10 feet (QC): 3 Walk 50 ft with 2 Turns(QC): 3 Walk 150 ft (QC): 3 Gait Assistive Device: FWW VC's for body placement in FWW and for gait sequence due to patient shuffling Exercises Supine Ex: Ankle pumps, Quad Set, Heel Slides, Straight leg raise Supine Reps: 10 Seated Therapy Exercises: Ankle pumps, Long arc quads Seated Reps: 12 Assessment Patient tolerates minimal activity and requires redirection to remain on task. Patient progressing slowly and had 4 episodes of backward LOB with PT correct. PT Penitentiary Goals Reheat Furnace Operator Goals PT Reheat Furnace Operator Goals Time Frame: Jul 11, 2021 Roll Left & Right (QC): 6 Sit to Lying (QC): 6 Lying-Sitting on Side/Bed(QC): 6 Sit to Stand (QC): 6 Chair/Vvr-xy-Hhdew Xfer(QC): 6 Toilet Transfer (QC): 6 Walk 10 feet (QC): 6 Walk 50ft with 2 Turns (QC): 6 Walk 150 ft (QC): 6 1 Step (curb) (QC): 4 4 Steps (QC): 4 PT Plan Treatment/Plan Treatment Plan: Continue Plan of Care Treatment Plan: Bed Mobility, Education, Functional Activity Gilda, Functional Strength, Gait, Safety, Therapeutic Exercise, Transfers Treatment Duration: Jul 11, 2021 Frequency: 11 times per week Estimated Hrs Per Day: .5 hour per day Patient and/or Family Agrees t: Yes Time/GCodes Time In: 830 Time Out: 858 Total Billed Treatment Time: 28 Total Billed Treatment 1 visit EX 13 min GT 15 min TOVA MONTERO PT Jun 23, 2021 10:05
--- NOTE | 2021-06-23 11:01 | Discharge Summary ---
Diagnosis/Chief Complaint Date of Admission Jun 20, 2021 at 06:00 Date of Discharge Discharge Date: Jun 23, 2021 Discharge Diagnosis Assessment: Acute respiratory distress PNA on CXR Tuesday and PCT elevated but negative the day before with CXR and PCT normal Sepsis Elevated BNP acute on chronic CHF Pacemaker Previous TVAR for aortic stenosis and current echo report severe aortic stenosis again may need repeat procedure AF OAC disrupted due to ortho surgery so required CT angiogram to r/o PE which was negative for PE Dementia? SLUMS Advanced age s/p right knee replacement POD # 5 h/o SIVA s/p critical illness 09/2020 requiring right ureter stent for obstruction of uncertain etiology Valvular heart disease HTN with severe OOC status post op Hypothyroidism Presbycusis Recent TBI 10/2020 with scalp laceration which could contribute to cognitive decline Plan: IV abx O2 Cards consult EICU consult OAC 06/21/21: IV abx Lasix Cardiology appreciated Pain control CPM PT OT CPM Transfer to step down 06/22/2021: Transfer to fourth floor PT and OT Appreciate Dr. Dixon Discharge Summary Discharge Physical Examination Allergies: Coded Allergies: Penicillins (Verified Allergy, Unknown, 06/23/21) pineapple (Verified Allergy, Unknown, 06/23/21) Vitals & I&Os Vital Signs Date Time Temp Pulse Resp B/P (MAP) Pulse Ox O2 Delivery O2 Flow Rate FiO2 06/23/21 13:24 06/23/21 12:17 68 06/23/21 11:41 36.9 18 97 High Flow N/C 5.00 06/22/21 20:00 95 General Appearance: Alert, Oriented X3, Cooperative Respiratory: Clear to Auscultation Cardiovascular: Regular Rate Neuro: Normal Gait, Normal Speech, Strength at 5/5 X4 Ext Psych/Mental Status: Mental Status NL Hospital Course Was the Problem List Reviewed?: Yes Pt is an 80yoWF who underwent an uneventful right total knee arthroplasty on 06/17/21, performed by Dr. Barton. She was admitted to the IRF on 06/18/21 for PT and OT due to debility following her R knee arthroplasty. During her stay she developed crackles in lower lungs and post op fever on 06/20/2021. A right sided effusion and atalectsis consistent with PNA was confirmed with CXR and CT. (CT performed to R/O PE due to Xarelto which was discontinued several days prior to knee replacement surgery and especially given the fact that CXR and PCT and labs were negative the day before) On 06/20/2021 she was moved from IRF up to ICU due to increasing O2 requirement in new onset hypoxia requiring supplemental oxygen complicated by her PNA. IV abx and intense supportive care was delivered as well. On 06/22/2021 with improvement of her sx she was moved down the medical floor for continued supportive care. On 06/23/2021 after further improvement with PT and decreased need for O2, pt was moved back to IRF to continue PT and OT to improve debility associated with her right knee arthroplasty and continued PNA recovery. JAISON SCHAEFER Labs (last 24 hrs) Laboratory Tests 06/20/21 06:30: Urine Color YELLOW, Urine Clarity CLEAR, Urine pH 6.0, Urine Specific [place] 1.020, Urine Protein NEGATIVE, Urine Glucose (UA) NEGATIVE, Urine Ketones NEGATIVE, Urine Nitrite NEGATIVE, Urine Bilirubin NEGATIVE, Urine Urobilinogen 0.2, Urine Leukocyte Esterase NEGATIVE, Urine RBC (Auto) NEGATIVE, Urine RBC NONE, Urine WBC NONE, Urine Crystals NONE, Urine Bacteria NEGATIVE, Urine Casts NONE, Urine Mucus NEGATIVE, Urine Culture Indicated NO 06/20/21 07:06: White Blood Count 11.6H, Red Blood Count 2.70L, Hemoglobin 8.2L, Hematocrit 26L, Mean Corpuscular Volume 95, Mean Corpuscular Hemoglobin 30, Mean Corpuscular Hemoglobin Concent 32, Red Cell Distribution Width 13.9, Platelet Count 198, M john Platelet Volume 9.8, Immature Granulocyte % (Auto) 0, Neutrophils (%) (Auto) 78H, Lymphocytes (%) (Auto) 10L, Monocytes (%) (Auto) 10, Eosinophils (%) (Auto) 1, Basophils (%) (Auto) 0, Neutrophils # (Auto) 9.1H, Lymphocytes # (Auto) 1.1, Monocytes # (Auto) 1.2H, Eosinophils # (Auto) 0.1, Basophils # (Auto) 0.1, Immature Granulocyte # (Auto) 0.0, Sodium Level 137, Potassium Level 4.1, Chloride Level 102, Carbon Dioxide Level 25, Anion Gap 10, Blood Urea Nitrogen 21H, Creatinine 0.84, Estimat Glomerular Filtration Rate 65, BUN/Creatinine Ratio 25, Glucose Level 122H, Lactic Acid Level 0.63, Calcium Level 8.5, Corrected Calcium 9.2, Total Bilirubin 0.8, Aspartate Amino Transf (AST/SGOT) 18, Alanine Aminotransferase (ALT/SGPT) 13, Alkaline Phosphatase 68, Troponin I 0.149H, B-Type Natriuretic Peptide 1051.0H, Total Protein 5.9L, Albumin 3.1L, Procalcitonin 0.11H 06/20/21 07:35: Blood Gas Puncture Site RT RAD, Blood Gas Patient Temperature 37.4, Arterial Blood pH 7.36L, Arterial Blood Partial Pressure CO2 53H, Arterial Blood Partial Pressure O2 79, Arterial Blood HCO3 29H, Arterial Blood Total CO2 30.5, Arterial Blood Oxygen Saturation 97, Arterial Blood Base Excess 3.9H, Marquez Test NA, Blood Gas Ventilator Setting NA, Blood Gas Inspired Oxygen NA 06/21/21 04:15: White Blood Count 8.5, Red Blood Count 2.71L, Hemoglobin 8.1L, Hematocrit 26L, Mean Corpuscular Volume 97, Mean Corpuscular Hemoglobin 30, Mean Corpuscular Hemoglobin Concent 31L, Red Cell Distribution Width 14.1, Platelet Count 230, Mean Platelet Volume 9.9, Immature Granulocyte % (Auto) 1, Neutrophils (%) (Auto) 74, Lymphocytes (%) (Auto) 11L, Monocytes (%) (Auto) 11, Eosinophils (%) (Auto) 3, Basophils (%) (Auto) 1, Neutrophils # (Auto) 6.3, Lymphocytes # (Auto) 0.9L, Monocytes # (Auto) 1.0, Eosinophils # (Auto) 0.3, Basophils # (Auto) 0.0, Immature Granulocyte # (Auto) 0.0, Sodium Level 138, Potassium Level 4.4, Chloride Level 104, Carbon Dioxide Level 24, Anion Gap 10, Blood Urea Nitrogen 17, Creatinine 0.76, Estimat Glomerular Filtration Rate 73, BUN/Creatinine Ratio 22, Glucose Level 92, Calcium Level 8.5, Corrected Calcium 9.3, Total Bilirubin 0.8, Aspartate Amino Transf (AST/SGOT) 19, Alanine Aminotransferase (ALT/SGPT) 11, Alkaline Phosphatase 70, Total Protein 5.8L, Albumin 3.0L, Phosphorus Level 1.6L, Magnesium Level 2.0 06/21/21 05:44: Blood Gas Puncture Site LEFT RADIAL, Blood Gas Patient Temperature 37.0, Arterial Blood pH 7.42, Arterial Blood Partial Pressure CO2 44, Arterial Blood Partial Pressure O2 63L, Arterial Blood HCO3 28H, Arterial Blood Total CO2 29.1, Arterial Blood Oxygen Saturation 94, Arterial Blood Base Excess 3.6H, Marquez Test YES-POS, Blood Gas Ventilator Setting NA, Blood Gas Inspired Oxygen NA 06/22/21 04:30: White Blood Count 7.4, Red Blood Count 2.77L, Hemoglobin 8.4L, Hematocrit 27L, Mean Corpuscular Volume 97, Mean Corpuscular Hemoglobin 30, Mean Corpuscular Hemoglobin Concent 31L, Red Cell Distribution Width 13.9, Platelet Count 269, Mean Platelet Volume 9.7, Immature Granulocyte % (Auto) 1, Neutrophils (%) (Auto) 72, Lymphocytes (%) (Auto) 11L, Monocytes (%) (Auto) 12, Eosinophils (%) (Auto) 4, Basophils (%) (Auto) 1, Neutrophils # (Auto) 5.3, Lymphocytes # (Auto) 0.8L, Monocytes # (Auto) 0.9, Eosinophils # (Auto) 0.3, Basophils # (Auto) 0.0, Immature Granulocyte # (Auto) 0.0, Sodium Level 141, Potassium Level 4.2, Chloride Level 103, Carbon Dioxide Level 27, Anion Gap 11, Blood Urea Nitrogen 16, Creatinine 0.75, Estimat Glomerular Filtration Rate 74, BUN/Creatinine Ratio 21, Glucose Level 104, Calcium Level 8.7, Corrected Calcium 9.4, Magnesium Level 2.0, Iron Level 21L, Total Bilirubin 0.8, Aspartate Amino Transf (AST/SGOT) 18, Alanine Aminotransferase (ALT/SGPT) 11, Alkaline Phosphatase 78, Total Protein 5.9L, Albumin 3.1L 06/22/21 07:18: Vancomycin Level Trough 14.7 06/23/21 05:35: White Blood Count 7.3, Red Blood Count 2.79L, Hemoglobin 8.4L, Hematocrit 27L, Mean Corpuscular Volume 97, Mean Corpuscular Hemoglobin 30, Mean Corpuscular Hemoglobin Concent 31L, Red Cell Distribution Width 13.9, Platelet Count 320, Mean Platelet Volume 10.0, Immature Granulocyte % (Auto) 1, Neutrophils (%) (Auto) 66, Lymphocytes (%) (Auto) 16, Monocytes (%) (Auto) 13H, Eosinophils (%) (Auto) 4, Basophils (%) (Auto) 1, Neutrophils # (Auto) 4.8, Lymphocytes # (Auto) 1.1, Monocytes # (Auto) 0.9, Eosinophils # (Auto) 0.3, Basophils # (Auto) 0.1, Immature Granulocyte # (Auto) 0.1, Sodium Level 141, Potassium Level 4.1, Chloride Level 102, Carbon Dioxide Level 30, Anion Gap 9, Blood Urea Nitrogen 14, Creatinine 0.83, Estimat Glomerular Filtration Rate 66, BUN/Creatinine Ratio 17, Glucose Level 107H, Calcium Level 9.1, Corrected Calcium 9.7, Magnesium Level 2.2, Total Bilirubin 0.8, Aspartate Amino Transf (AST/SGOT) 21, Alanine Aminotransferase (ALT/SGPT) 12, Alkaline Phosphatase 89, Total Protein 6.2L, Albumin 3.2 Microbiology 06/20/21 Blood Culture - Preliminary, Resulted No growth 06/20/21 MRSA Screen - Final, Complete MRSA not isolated Pending Labs Microbiology Date/Time Source Procedure Growth Status 06/20/21 07:06 Peripheral Lt Hand Blood Culture - Preliminary No growth Resulted 06/20/21 06:59 Peripheral Rt Ac Blood Culture - Preliminary No growth Resulted 06/20/21 06:58 Nasal MRSA Screen - Final MRSA not isolated Complete Laboratory Tests 06/20/21 06:30: Urine Color YELLOW, Urine Clarity CLEAR, Urine pH 6.0, Urine Specific [place] 1.020, Urine Protein NEGATIVE, Urine Glucose (UA) NEGATIVE, Urine Ketones NEGATIVE, Urine Nitrite NEGATIVE, Urine Bilirubin NEGATIVE, Urine Urobilinogen 0.2, Urine Leukocyte Esterase NEGATIVE, Urine RBC (Auto) NEGATIVE, Urine RBC NONE, Urine WBC NONE, Urine Crystals NONE, Urine Bacteria NEGATIVE, Urine Casts NONE, Urine Mucus NEGATIVE, Urine Culture Indicated NO 06/20/21 07:06: White Blood Count 11.6, Red Blood Count 2.70, Hemoglobin 8.2, Hematocrit 26, Mean Corpuscular Volume 95, Mean Corpuscular Hemoglobin 30, Mean Corpuscular Hemoglobin Concent 32, Red Cell Distribution Width 13.9, Platelet Count 198, Mean Platelet Volume 9.8, Immature Granulocyte % (Auto) 0, Neutrophils (%) (Auto) 78, Lymphocytes (%) (Auto) 10, Monocytes (%) (Auto) 10, Eosinophils (%) (Auto) 1, Basophils (%) (Auto) 0, Neutrophils # (Auto) 9.1, Lymphocytes # (Auto) 1.1, Monocytes # (Auto) 1.2, Eosinophils # (Auto) 0.1, Basophils # (Auto) 0.1, Immature Granulocyte # (Auto) 0.0, Sodium Level 137, Potassium Level 4.1, Ch loride Level 102, Carbon Dioxide Level 25, Anion Gap 10, Blood Urea Nitrogen 21, Creatinine 0.84, Estimat Glomerular Filtration Rate 65, BUN/Creatinine Ratio 25, Glucose Level 122, Lactic Acid Level 0.63, Calcium Level 8.5, Corrected Calcium 9.2, Total Bilirubin 0.8, Aspartate Amino Transf (AST/SGOT) 18, Alanine Aminotransferase (ALT/SGPT) 13, Alkaline Phosphatase 68, Troponin I 0.149, B- Type Natriuretic Peptide 1051.0, Total Protein 5.9, Albumin 3.1, Procalcitonin 0.11 06/20/21 07:35: Blood Gas Puncture Site RT RAD, Blood Gas Patient Temperature 37.4, Arterial Blood pH 7.36, Arterial Blood Partial Pressure CO2 53, Arterial Blood Partial Pressure O2 79, Arterial Blood HCO3 29, Arterial Blood Total CO2 30.5, Arterial Blood Oxygen Saturation 97, Arterial Blood Base Excess 3.9, Marquez Test NA, Blood Gas Ventilator Setting NA, Blood Gas Inspired Oxygen NA 06/21/21 04:15: White Blood Count 8.5, Red Blood Count 2.71, Hemoglobin 8.1, Hematocrit 26, Mean Corpuscular Volume 97, Mean Corpuscular Hemoglobin 30, Mean Corpuscular Hemoglobin Concent 31, Red Cell Distribution Width 14.1, Platelet Count 230, Mean Platelet Volume 9.9, Immature Granulocyte % (Auto) 1, Neutrophils (%) (Auto) 74, Lymphocytes (%) (Auto) 11, Monocytes (%) (Auto) 11, Eosinophils (%) (Auto) 3, Basophils (%) (Auto) 1, Neutrophils # (Auto) 6.3, Lymphocytes # (Auto) 0.9, Monocytes # (Auto) 1.0, Eosinophils # (Auto) 0.3, Basophils # (Auto) 0.0, Immature Granulocyte # (Auto) 0.0, Sodium Level 138, Potassium Level 4.4, Chloride Level 104, Carbon Dioxide Level 24, Anion Gap 10, Blood Urea Nitrogen 17, Creatinine 0.76, Estimat Glomerular Filtration Rate 73, BUN/Creatinine Ratio 22, Glucose Level 92, Calcium Level 8.5, Corrected Calcium 9.3, Total Bilirubin 0.8, Aspartate Amino Transf (AST/SGOT) 19, Alanine Aminotransferase (ALT/SGPT) 11, Alkaline Phosphatase 70, Total Protein 5.8, Albumin 3.0, Phosphorus Level 1.6, Magnesium Level 2.0 06/21/21 05:44: Blood Gas Puncture Site LEFT RADIAL, Blood Gas Patient Temperature 37.0, Arterial Blood pH 7.42, Arterial Blood Partial Pressure CO2 44, Arterial Blood Partial Pressure O2 63, Arterial Blood HCO3 28, Arterial Blood Total CO2 29.1, Arterial Blood Oxygen Saturation 94, Arterial Blood Base Excess 3.6, Marquez Test YES-POS, Blood Gas Ventilator Setting NA, Blood Gas Inspired Oxygen NA 06/22/21 04:30: White Blood Count 7.4, Red Blood Count 2.77, Hemoglobin 8.4, Hematocrit 27, Mean Corpuscular Volume 97, Mean Corpuscular Hemoglobin 30, Mean Corpuscular Hemoglobin Concent 31, Red Cell Distribution Width 13.9, Platelet Count 269, Mean Platelet Volume 9.7, Immature Granulocyte % (Auto) 1, Neutrophils (%) (Auto) 72, Lymphocytes (%) (Auto) 11, Monocytes (%) (Auto) 12, Eosinophils (%) (Auto) 4, Basophils (%) (Auto) 1, Neutrophils # (Auto) 5.3, Lymphocytes # (Auto) 0.8, Monocytes # (Auto) 0.9, Eosinophils # (Auto) 0.3, Basophils # (Auto) 0.0, Immature Granulocyte # (Auto) 0.0, Sodium Level 141, Potassium Level 4.2, Chloride Level 103, Carbon Dioxide Level 27, Anion Gap 11, Blood Urea Nitrogen 16, Creatinine 0.75, Estimat Glomerular Filtration Rate 74, BUN/Creatinine Ratio 21, Glucose Level 104, Calcium Level 8.7, Corrected Calcium 9.4, Magnesium Level 2.0, Iron Level 21, Total Bilirubin 0.8, Aspartate Amino Transf (AST/SGOT) 18, Alanine Aminotransferase (ALT/SGPT) 11, Alkaline Phosphatase 78, Total Protein 5.9, Albumin 3.1 06/22/21 07:18: Vancomycin Level Trough 14.7 06/23/21 05:35: White Blood Count 7.3, Red Blood Count 2.79, Hemoglobin 8.4, Hematocrit 27, Mean Corpuscular Volume 97, Mean Corpuscular Hemoglobin 30, Mean Corpuscular Hemoglobin Concent 31, Red Cell Distribution Width 13.9, Platelet Count 320, Mean Platelet Volume 10.0, Immature Granulocyte % (Auto) 1, Neutrophils (%) (Auto) 66, Lymphocytes (%) (Auto) 16, Monocytes (%) (Auto) 13, Eosinophils (%) (Auto) 4, Basophils (%) (Auto) 1, Neutrophils # (Auto) 4.8, Lymphocytes # (Auto) 1.1, Monocytes # (Auto) 0.9, Eosinophils # (Auto) 0.3, Basophils # (Auto) 0.1, Immature Granulocyte # (Auto) 0.1, Sodium Level 141, Potassium Level 4.1, Chloride Level 102, Carbon Dioxide Level 30, Anion Gap 9, Blood Urea Nitrogen 14, Creatinine 0.83, Estimat Glomerular Filtration Rate 66, BUN/Creatinine Ratio 17, Glucose Level 107, Calcium Level 9.1, Corrected Calcium 9.7, Magnesium Level 2.2, Total Bilirubin 0.8, Aspartate Amino Transf (AST/SGOT) 21, Alanine Aminotransferase (ALT/SGPT) 12, Alkaline Phosphatase 89, Total Protein 6.2, Albumin 3.2 Discharge Home Medications: Active Scripts Active Reported Xarelto (Rivaroxaban) 20 Mg Tablet 20 Mg PO DAILY K-Tab ER (Potassium Chloride) 10 Meq Tablet.er 20 Meq PO DAILY TAKE 2 (10MEQ) TABS Carvedilol 12.5 Mg Tablet 12.5 Mg PO BID Atorvastatin Calcium 20 Mg Tablet 20 Mg PO DAILY Dilt-Xr (Diltiazem HCl) 240 Mg Cap.er.deg 240 Mg PO DAILY Gabapentin 100 Mg Capsule 100 Mg PO BID Furosemide 20 Mg Tablet 20 Mg PO DAILY Levothyroxine Sodium 75 Mcg Tablet 75 Mcg PO DAILY Instructions to patient/family Please see electronic discharge instructions given to patient. DAYA VILLEGAS DO Jun 23, 2021 11:01
--- NOTE | 2021-06-23 11:56 | Progress Note ---
JAISON SCHAEFER 06/23/21 1156: Progress Note Pt is an 80yoWF who underwent an uneventful right total knee arthroplasty on 06/17/21, performed by Dr. Barton. She was admitted to the IRF on 06/18/21 for PT and OT due to debility following her R knee arthroplasty. During her stay she developed crackles in lower lungs and post op fever on 06/20/2021. A right sided effusion and atalectsis consistent with PNA was confirmed with CXR and CT. (CT performed to R/O PE due to Xarelto which was discontinued several days prior to knee replacement surgery and especially given the fact that CXR and PCT and labs were negative the day before) On 06/20/2021 she was moved from IRF up to ICU due to increasing O2 requirement in new onset hypoxia requiring supplemental oxygen complicated by her PNA. IV abx and intense supportive care was delivered as well. On 06/22/2021 with improvement of her sx she was moved down the medical floor for continued supportive care. On 06/23/2021 after further improvement with PT and decreased need for O2, pt was moved back to IRF to continue PT and OT to improve debility associated with her right knee arthroplasty and continued PNA recovery. LILLIAM VILLEGAS DO 06/24/21 0617: Supervisory-Addendum Brief Verification & Attestation Participated in pt care: history, MDM, physical Personally performed: exam, history, MDM, supervision of care Care discussed with: Medical Student Procedures: n/a Results interpretation: Verified all documentation Verification and Attestation of Medical Student E/M Service A medical student performed and documented this service in my presence. I reviewed and verified all information documented by the medical student and made modifications to such information, when appropriate. I personally performed the physical exam and medical decision making. Lilliam Villegas Jun 24, 2021,06:17 JAISON SCHAEFER Jun 23, 2021 11:56 LILLIAM VILLEGAS DO Jun 24, 2021 06:17
--- NOTE | 2021-06-26 11:35 | Physician Query Clarification ---
PQ-Uncertain Diagnosis Admission/Discharge Admission Date: Jun 20, 2021 at 06:00 Discharge Date: Jun 23, 2021 at 13:26 Dr. Portillo, The medical record reflects the following clinical scenario: History/Risk Factors: Pneumonia, acute hypoxic/hypercapnia respiratory failure Clinical Findings: T 37.5, P 65, R 32, WBC 11.6, Lactic acid 0.63 Treatment: IV Cefepime, IV Vancomycin Question: Is sepsis a clinically valid diagnosis? Sepsis was documented in the H&P and brought forward to the DS with no further documentation in the medical record. Please document a response in Progress Note or Discharge Summary. 1. Yes, clinically valid, condition resolved. 2. No, condition ruled out. 3. Other, with explanation of clinical findings. 4. Undetermined, no explanation for clinical findings. PHYSICIAN RESPONSE Diagnosis clinically valid: Yes, Conditon resolved Please remember a lack of response to the above will prompt a phone page by CDI/Coding staff. In responding to this query, please exercise your independent professional judgment. The purpose of this communication is to more accurately reflect the complexity of your patients condition. The fact that a question is asked does not imply that any particular answer is desired or expected. Thank you for your timely response to this clarification. Requestors name: Isidra THIS PHYSICIAN QUERY FORM IS A PERMANENT PART OF THE MEDICAL RECORD ISIDRA WAGNER Jun 26, 2021 11:35 DAYA PORTILLO DO Jun 26, 2021 13:26
== END 2021-06-23 13:26 | DRG 871 ==
LOC: ICU 06:00 → 4TH 06-22 17:19
PROVIDERS: ADMIT Internal Medicine; ATTEND Internal Medicine
PROC: 5A0945A Assistance with Respiratory Ventilation, 24-96 Consecutive Hours, High Flow/Velocity Cannula (ICD-10-PCS; principal; 2021-06-20)
DX: A41.9 Sepsis, unspecified organism (principal); J18.9 Pneumonia, unspecified organism; J96.01 Acute respiratory failure with hypoxia; J96.02 Acute respiratory failure with hypercapnia; I50.32 Chronic diastolic (congestive) heart failure; I11.0 Hypertensive heart disease with heart failure; I48.0 Paroxysmal atrial fibrillation; I35.0 Nonrheumatic aortic (valve) stenosis; E78.00 Pure hypercholesterolemia, unspecified; E03.9 Hypothyroidism, unspecified; H91.13 Presbycusis, bilateral; F03.90 Unspecified dementia, unspecified severity, without behavioral disturbance, psychotic disturbance, mood disturbance, and anxiety; I27.20 Pulmonary hypertension, unspecified; Z91.81 History of falling; Z95.5 Presence of coronary angioplasty implant and graft; Z95.0 Presence of cardiac pacemaker; Z96.651 Presence of right artificial knee joint; Z97.4 Presence of external hearing-aid; Z79.01 Long term (current) use of anticoagulants; Z95.2 Presence of prosthetic heart valve; Z87.820 Personal history of traumatic brain injury; Z88.0 Allergy status to penicillin; Z91.018 Allergy to other foods
CPT/HCPCS: 36415; 70450; 71045; 71275; 80053; 80202; 81000; 82805; 83540; 83605; 83735; 83880; 84100; 84145; 84484; 85025; 87040; 87081; 93005; 93306; 94640; 94664; 94760

== ENCOUNTER 2021-06-23 11:03 | Inpatient (IN) | payer MEDICARE ==
[~2021-06-23] VITALS: Ht 175.6 cm; Wt 79.8 kg
[~2021-06-23 11:03] MED LIST changes: -AMIO200T6 PO; +AMIO200T65 PO; +POTA-160 PO; +POTA-179 PO; -POTA10TA6 PO; -POTA20TA15 PO
[2021-06-23] MEDS ORDERED: diphenhydrAMINE 25 MG TAB (BENADRYL) PO PRN ×2 (11:45→15:30)
[2021-06-23] MEDS ORDERED: BISACODYL 10 MG SUPP (DULCOLAX) PR PRN ×2 (11:45→15:30)
[2021-06-23] MEDS ORDERED: FLEET ENEMA ADULT 1 EA BTL PR PRN ×2 (11:45→15:30)
[2021-06-23] MEDS ORDERED: LACTULOSE SYRUP 10GM/15ML (ENULOSE) 30ML UDC PO PRN ×2 (11:45→15:30)
[2021-06-23] MEDS ORDERED: MELATONIN 3 MG TABLET PO PRN ×2 (11:45→15:30)
[2021-06-23] MEDS ORDERED: guaiFENesin/CODEINE (ROBITUSSIN AC) 10ML UDC PO PRN ×2 (11:45→15:30)
[2021-06-23] MEDS ORDERED: ALPRAZolam 0.25 MG (XANAX) TAB PO PRN ×2 (11:45→15:30)
[2021-06-23] MEDS ORDERED: DOCUSATE SODIUM 100 MG (COLACE) CAP PO PRN ×2 (11:45→15:30)
[2021-06-23] MEDS ORDERED: CALCIUM CARBONATE 500 MG (TUMS) TAB.CHEW PO PRN ×2 (11:45→15:30)
[2021-06-23] MEDS ORDERED: LOPERAMIDE 2 MG (IMODIUM) TABLET PO PRN ×2 (11:45→15:30)
[2021-06-23 13:51] VITALS: BP 163/70
--- NOTE | 2021-06-23 13:53 | Occupational Therapy Eval ---
OT Evaluation-General/PLF Medical Diagnosis Admission Date Jun 23, 2021 Medical Diagnosis: s/p right TKR, respiratory distress, debility Onset Date: Jun 17, 2021 Therapy Diagnosis Therapy Diagnosis: decreased ADL status Height/Weight Height (Feet): 5 Height (Inches): 9.00 Weight (Pounds): 171 Weight (Ounces): 9.0 Precautions Precautions/Isolations: Fall Prevention, Standard Precautions Weight Bear Status Weight Bearing Restriction: Weight Bearing/Tolerated Location Restriction: R LE Referral Physician: Bandar Referral Reason: Evaluation/Treatment Medical History Pertinent Medical History: Atrial Fib, CAD, Heart Failure, HTN, Hypothroidism Additional Medical History coronary stent, afib, HTN, hypothyroidism Current History s/p R TKA 06/17/21, Transferred to ARU 06/18/21, then transferred to ICU 06/20/21 due to increased O2 requirement, new onset hypoxia. Pt returned to ARU 06/23/21 for continued medication management and skilled therapy. Social History Home: Single Level Current Living Status: Spouse Entry Into Home: Stairs With Railing Steps Into Home: 3 ADL-Prior Level of Function SCALE: Activities may be completed with or without assistive devices. 3-Ubwknkrjkk-srzzdmv completes the activity by him/herself with no assistance from a helper. 5-Set-up or Clean-up Assistance-helper sets up or cleans up; patient completes activity. [place] assists only prior to or following the activity. 4-Supervision or Touching Assistance-helper provides verbal cues and/or touching/steadying and/or contact guard assistance as patient completes activity. Assistance may be provided throughout the activity or intermittently. 3-Partial/Moderate Assistance-helper does LESS THAN HALF the effort. [place] lifts, holds or supports trunk or limbs, but provides less than half the effort. 2-Substantial/Maximal Assistance-helper does MORE THAN HALF the effort. [place] lifts or holds trunk or limbs and provides more than half the effort. 2-Ofmgazytl-bukjhd does ALL the effort. Patient does none of the effort to complete the activity. Or, the assistance of 2 or more helpers is required for the patient to complete the activity. If activity was not attempted, code reason: 7-Patient Refused. 9-Not Applicable-not attempted and the patient did not perform the activity before the current illness, exacerbation or injury. 10-Not Attempted due to Environmental Limitations-(lack of equipment, weather restraints, etc.). 88-Not Attempted due to Medical Conditions or Safety Concerns. ADL PLOF Comments Pt reports IND with ADLs and functional mobility at PLOF, using 4WW. Self Care: Independent Functional Cognition: Independent DME/Equipment: Bath Bench, Grab Bars, Shower DME/Equipment Comments 4WW Drive Self: No OT Current Status Subjective Pt agreeable to OT evaluation and OT/PT cotreat. Pt does not report any pain. Pt unaware that she had surgery 6 days ago. Mental Status/Objective Patient Orientation: Person, Confused Attachments: Oxygen (5L) Current Glasses/Contacts: Yes Hearing Aids: Yes Dentures/Partials: Yes Hand Dominance: Right Upper Extremity ROM WFL, BUE shoulder flexion to approx 160 degrees Upper Extremity Coordination WFL Upper Extremity Strength grossly 3+/5 BUEs ADL-Treatment Eating (QC): 5 (set up with lunch) Oral Hygiene (QC): 5 (per clinical judgment.) Shower/Bathe Self (QC): 7 Upper Body Dressing (QC): 7 Lower Body Dressing (QC): 7 On/Off Footwear (QC): 7 Toileting Hygiene (QC): 7 Other Treatments OT evaluation complete. OT/PT cotreat due to skill of 2 clinicians required which a rehabilitation manager could not perform in order to coordinate UEs/LEs, decrease fall risk, and due to limitations in pt's strength, mobility, transfers, activity tolerance, and confusion. OT focused on UE placement, cues for sequencing and safety, and ADLs, PT focused on LE placement, gross overall movements, and transfer/mobility. Pt performed sit to stand from recliner, then used FWW to perform functional mobility in hallway. Pt sat in transport chair, taken to [facility] common area. Pt completed functional mobility/transfers on uneven surface and car simulation, then to her room to complete bed mobility. OVALLES present to take over tx. With mobility/transfers, pt required verbal cues for UE placement for safety. Please refer to PT evaluaton/note for scores associated with mobility/transfers. Post tx, pt in bed, all needs met, PT/OVALLES present to continue tx. Education OT Patient Education: Correct positioning, Energy conservation, Modified ADL techniques, Progress toward Goal/Update tx plan, Purpose of tx/functional activities, Rehab process, Safety issues, Transfer techniques Teaching Recipient: Patient Teaching Methods: Discussion Response to Teaching: Verbalize Understanding OT Short Term Goals Short Term Goals Time Frame: Jul 03, 2021 Toileting hygiene: 5 Shower/bathe self: 4 Lower body dressin Putting on/taking off footwear: 4 OT Sales Officer Goals Sales Officer Goals Time Frame: Jul 17, 2021 Eating (QC): 6 Oral Hygiene (QC): 6 Toileting Hygiene (QC): 6 Shower/Bathe Self (QC): 5 Upper Body Dressing (QC): 6 Lower Body Dressing (QC): 6 On/Off Footwear (QC): 6 Additional Goals: 1-Demonstrate ADL Tasks, 2-Verbalize Understanding, 3-I mproveStrength/Gilda 1=Demonstrate adherence to instructed precautions during ADL tasks. 2=Patient will verbalize/demonstrate understanding of assistive devices/modifications for ADL. 3=Patient will improve strength/tolerance for activity to enable patient to perform ADL's. OT Education/Plan Problem List/Assessment Assessment: Decreased Activ Tolerance, Decreased Safety Aware, Decreased UE Strength, Impaired Cognition, Impaired Funct Balance, Impaired I ADL's, Impaired Self-Care Skills Discharge Recommendations Plan/Recommendations: Continue POC Treatment Plan/Plan of Care Patient would benefit from OT for education, treatment and training to promote independence in ADL's, mobility, safety and/or upper extremity function for ADL's. Plan of Care: ADL Retraining, Functional Mobility, Group Exercise/Act as Ind, UE Funct Exercise/Act Treatment Duration: Jul 17, 2021 Frequency: At least 5 of 7 days/Wk (IRF) Estimated Hrs Per Day: 1.5 hours per day Rehab Potential: Fair Time/GCodes Start Time: 13:20 Stop Time: 13:45 Total Time Billed (hr/min): 25 Billed Treatment Time 9926-2701 OT eval, [id number] OT/PT cotreat 1, EVM (10'), FA (15') DOUG BRINK OT Jun 23, 2021 13:53
--- NOTE | 2021-06-23 14:26 | Physical Therapy Evaluation ---
PT Evaluation-General Medical Diagnosis Admission Date Jun 23, 2021 at 13:30 Medical Diagnosis: s/p right TKR, respiratory distress, debility Onset Date: Jun 17, 2021 Therapy Diagnosis Therapy Diagnosis: Gait deficit, strength deficit Height/Weight Height (Feet): 5 Height (Inches): 9.00 Weight (Pounds): 171 Weight (Ounces): 9.0 Precautions Precautions/Isolations: Fall Prevention, Standard Precautions Weight Bear Status Right Lower Extremity: Right Weight Bearing/Tolerated Referral Physician: Bandar Reason for Referral: Evaluation/Treatment Medical History Pertinent Medical History: Atrial Fib, CAD, Heart Failure, HTN, Hypothroidism Social History Home: Single Level Current Living Status: Spouse Entry Into Home: Stairs With Railing PT Steps Into Home: 3 Prior Prior Level of Function SCALE: Activities may be completed with or without assistive devices. 5-Iknspitnoj-hypyjkw completes the activity by him/herself with no assistance from a helper. 5-Set-up or Clean-up Assistance-helper sets up or cleans up; patient completes activity. [place] assists only prior to or following the activity. 4-Supervision or Touching Assistance-helper provides verbal cues and/or touching/steadying and/or contact guard assistance as patient completes activity. Assistance may be provided throughout the activity or intermittently. 3-Partial/Moderate Assistance-helper does LESS THAN HALF the effort. [place] lifts, holds or supports trunk or limbs, but provides less than half the effort. 2-Substantial/Maximal Assistance-helper does MORE THAN HALF the effort. [place] lifts or holds trunk or limbs and provides more than half the effort. 4-Qxosxfjxx-gkgwrz does ALL the effort. Patient does none of the effort to complete the activity. Or, the assistance of 2 or more helpers is required for the patient to complete the activity. If activity was not attempted, code reason: 7-Patient Refused. 9-Not Applicable-not attempted and the patient did not perform the activity before the current illness, exacerbation or injury. 10-Not Attempted due to Environmental Limitations-(lack of equipment, weather restraints, etc.). 88-Not Attempted due to Medical Conditions or Safety Concerns. Bed Mobility: 6 Transfers (B,C,W/C): 6 Gait: 6 Stairs: 6 Indoor Mobility (Ambulation): Independent Stairs: Independent Prior Devices Use: Other-see list below Prior Device Use: Cane, quad cane. Has 4WW at home. PT Evaluation-Current Subjective Patient reports 0/10 pain currently. Patient sitting in chair upon PT arrival, agreeable to treatment. Objective Patient Orientation: Person, Place, Time, Situation ROM/Strength ROM Lower Extremities Right knee AROM in sitting, flexion 75 degrees, extension 15 degrees from neutral. Left LE and right Hip/ankle all WFLs Strength Lower Extremities Right knee extension 3-/5, flexion 3-/5 Left WFLs Sensory Vision: Wears Glasses Hearing: Impaired Hand Dominance: Right Sensation Right Lower Extremit: Intact Sensation Left Lower Extremity: Intact Transfers Roll Left & Right (QC): 4 Sit to Lying (QC): 4 Lying to Sitting/Side of Bed(Q: 4 Sit to Stand (QC): 3 Chair/Anx-oh-Uhczh Xfer(QC): 3 Toilet Transfer (QC): 3 Car Transfer (QC): 3 Gait Does the Patient Walk?: Yes Mode of Locomotion: Walk Anticipated Mode of Locomotion: Walk Walk 10 feet (QC): 4 Walk 50 ft with 2 Turns(QC): 4 Walk 150 ft (QC): 88 Walking 10ft/uneven surface-QC: 4 Distance: 75 feet Gait Assistive Device: FWW Wheelchair Training Does the Pt Use a Wheelchair?: Yes Distance: 50 Wheel 50 ft with 2 turns (QC): 4 Wheel 150 ft (QC): 88 Type of Wheelchair: Manual Stairs #of Steps: 0 1 Step (curb) (QC): 88 4 Steps (QC): 88 12 Steps (QC): 88 Balance Sitting Static: Good Sitting Dynamic: Good Standing Static: Fair Standing Dynamic: Fair Picking up an Object (QC): 88 Assessment/Needs Patient tolerated PT initial Rehab evaluation well. Patient performs all observed transfers with min a. Patient performs bed mobility with SBA and chente bal cues for performance. Patient ambulates 75 feet with FWW, with CGA and verbal cues for safety, progression, distance from the FWW, conservation of energy and safety. At the end of ambulation, patient requested the w/c urgently and began to become a little scared. She was able to ambulate again later and was able to ambulate 75 feet with FWW, with CGA. Patient performs LE th erapeutic exercise while supine in the bed. Patient then performs bed mobility and transfers from bed to shower. PT and OT cotreated patient due to patients need for both disciplines to perform balance, assistance, safety and education while performing ADLs. Patient required the participation of both disciplines due to the increased fall risk the patient presents given her recent surgery and her current cognitive level. Patient in shower with HARSHAD upon PT departure with SEED CLEANER coming to finish treatment. Rehab Potential: Fair PT Short Term Goals Short Term Goals Time Frame: Jul 07, 2021 Roll Left & Right: 5 Sit to lyin Lying to sitting on side of be: 5 Sit to stand: 5 Chair/cil-md-ijiyo transfer: 5 Toilet transfer: 5 Car transfer: 5 Walk 10 feet: 5 Walk 50 feet with two turns: 5 Walk 150 feet: 5 Walking 10ft on uneven surface: 5 1 step (curb): 4 4 steps: 4 12 steps: 4 Picking up objects: 4 Does pt use a wc or scooter: Yes Wheel 50ft w/2 turns: 6 Wheel 150 feet: 6 Type: Manual PT [employer] Goals Nursing Home Goals PT Nursing Home Goals Time Frame: Jul 21, 2021 Roll Left & Right (QC): 6 Sit to Lying (QC): 6 Lying-Sitting on Side/Bed(QC): 6 Sit to Stand (QC): 6 Chair/Ltg-uf-Hohym Xfer(QC): 6 Toilet Transfer (QC): 6 Car Transfer (QC): 6 Does the Patient Walk: Yes Walk 10 feet (QC): 6 Walk 50ft with 2 Turns (QC): 6 Walk 150 ft (QC): 6 Walking 10ft on Uneven Surface: 6 1 Step (curb) (QC): 5 4 Steps (QC): 5 12 Steps (QC): 5 Picking up an Object (QC): 6 Does the Pt use WC or Scooter?: Yes Wheel 50 feet with 2 turns (QC: 6 Type: Manual Wheel 150 feet: 6 Type: Manual PT Plan Problem List Problem List: Activity Tolerance, Functional Strength, Safety, Balance, Gait, Transfer, Bed Mobility, ROM Treatment/Plan Treatment Plan: Continue Plan of Care Treatment Plan: Bed Mobility, Education, Functional Activity Gilda, Functional Strength, Group Therapy, Gait, Safety, Therapeutic Exercise, Transfers Treatment Duration: Aug 05, 2021 Frequency: At least 5 of 7 days/Wk (IRF) Estimated Hrs Per Day: 1.5 hours per day Patient and/or Family Agrees t: Yes Safety Risks/Education Patient Education: Gait Training, Transfer Techniques, Reviewed Precautions Teaching Recipient: Patient Teaching Methods: Demonstration, Discussion Response to Teaching: Reinforcement Needed Discharge Recommendations Target Placement Home with Time/GCodes Time In: 1310 Time Out: 1415 Total Billed Treatment Time: 65 Total Billed Treatment Visit, Eval jose, Gait, ex, FA JOAQUÍN BROOKS PT Jun 23, 2021 14:25
--- NOTE | 2021-06-23 15:02 | Occupational Ther Daily Note ---
OT Current Status-Daily Note Subjective Pt alert, finishing up eval when OT entered. Pt agreed to therapy. No c/o pain reported. Mental Status/Objective Patient Orientation: Person, Place, Time, Situation Attachments: IV, Oxygen, Telemetry ADL-Treatment Co treat with PT ([id number]) due to decrease functional mobility, increase pain, poor transfers, and safety. Pt focusing on mobility, transfers, LE placement for transfers while OT focusing on UB/LB dressing, hand placement during transfers, and safe/functional transfers. Pt agreed to complete shower. Pt sit-stand from EOB to FWW with CGA. Pt ambulated to bathroom and transferred to shower bench with CGA. Pt required vc for hand placement for safe/functional transfer to shower bench. Once at shower bench, pt doffed gown. Pt able to doff footwear and socks. and therapy assist with wrapping IV and knee bandage. Pt was able to cleanse/dry UB, chest, abdomen, and LB with close supervision. Pt sit-stand from shower bench with CGA. Pt cleansed marisol area with CGA and required assist to cleanse buttocks due to decreased dynamic standing. Pt SPT from shower bench to [facility] with CGA. Pt donned gown. Pt requested to don shahbaz hose. Pt exhibited good dyamic sitting tolerance. After several attempts, pt fatigued and requested help from therapist. Pt was able to thread BLUE through brief, required assist to thread over toes. Pt sit-stand from commode to FWW with CGA. Pt required assist to hike LB dressing. Pt ambulated to room and transferred to recliner with CGA. After session, pt sitting in recliner. All needs met and call light in reach. Therapy Code Descriptions/Definitions Functional [place] Measure: 0=Not Assessed/NA 4=Minimal Assistance 1=Total Assistance 5=Supervision or Setup 2=Maximal Assistance 6=Modified [place] 3=Moderate Assistance 7=Complete IndependenceSCALE: Activities may be completed with or without assistive devices. 0-Wdzepgmtyx-gcpsxli completes the activity by him/herself with no assistance from a helper. 5-Set-up or Clean-up Assistance-helper sets up or cleans up; patient completes activity. [place] assists only prior to or following the activity. 4-Supervision or Touching Assistance-helper provides verbal cues and/or touching/steadying and/or contact guard assistance as patient completes activity. Assistance may be provided throughout the activity or intermittently. 3-Partial/Moderate Assistance-helper does LESS THAN HALF the effort. [place] lifts, holds or supports trunk or limbs, but provides less than half the effort. 2-Substantial/Maximal Assistance-helper does MORE THAN HALF the effort. [place] lifts or holds trunk or limbs and provides more than half the effort. 8-Kqsguuusq-ozljot does ALL the effort. Patient does none of the effort to complete the activity. Or, the assistance of 2 or more helpers is required for the patient to complete the activity. If activity was not attempted, code reason: 7-Patient Refused. 9-Not Applicable-not attempted and the patient did not perform the activity before the current illness, exacerbation or injury. 10-Not Attempted due to Environmental Limitations-(lack of equipment, weather restraints, etc.). 88-Not Attempted due to Medical Conditions or Safety Concerns. Shower/Bathe Self (QC): 3 (Required assist to cleanse buttocks) Lower Body Dressing (QC): 3 (Pt required assist to hike LB dressing) On/Off Footwear: 3 Education OT Patient Education: Correct positioning, Modified ADL techniques, Purpose of tx/functional activities, Safety issues, Transfer techniques Teaching Recipient: Patient Teaching Methods: Demonstration, Discussion Response to Teaching: Verbalize Understanding, Return Demonstration OT Beating Machine Operator Goals Beating Machine Operator Goals Time Frame: Jul 17, 2021 Eating (QC): 6 Oral Hygiene (QC): 6 Toileting Hygiene (QC): 6 Shower/Bathe Self (QC): 5 Upper Body Dressing (QC): 6 Lower Body Dressing (QC): 6 On/Off Footwear (QC): 6 Additional Goals: 1-Demonstrate ADL Tasks, 2-Verbalize Understanding, 3- ImproveStrength/Gilda 1=Demonstrate adherence to instructed precautions during ADL tasks. 2=Patient will verbalize/demonstrate understanding of assistive devices/modifications for ADL. 3=Patient will improve strength/tolerance for activity to enable patient to perform ADL's. OT Education/Plan Problem List/Assessment Assessment: Decreased Activ Tolerance, Decreased Safety Aware, Impaired Funct Balance, Impaired Self-Care Skills, Restricted Funct UE ROM Discharge Recommendations Plan/Recommendations: Continue POC Treatment Plan/Plan of Care Patient would benefit from OT for education, treatment and training to promote independence in ADL's, mobility, safety and/or upper extremity function for ADL's. Plan of Care: ADL Retraining, Functional Mobility, Group Exercise/Act as Ind, UE Funct Exercise/Act Treatment Duration: Jul 17, 2021 Frequency: At least 5 of 7 days/Wk (IRF) Estimated Hrs Per Day: 1.5 hours per day Rehab Potential: Fair Time/GCodes Start Time: 13:45 Stop Time: 14:50 Total Time Billed (hr/min): 65 Billed Treatment Time 1 visit - ADL 4 (65 mins) Co treat with PT ([id number]) MIKE JENKINS Jun 23, 2021 15:02
--- NOTE | 2021-06-23 15:10 | Physical Therapy Daily Note ---
PT Daily Note-Current Subjective Pt in shower with OT upon arrival and agrees to co-treat. Use of 2 skilled clinicians d/t pt poor mobility, weakness, transfers, poor balance, safety, and decrease risk of falls. Pt has no c/o pain at beginning of tx, states pain in R knee post tx but doesn't rate out of 10 Pain Location: Right Location Body Site: Knee Mental Status Patient Orientation: Person, Confused Attachments: Oxygen (5L), Polar Pack Transfers SCALE: Activities may be completed with or without assistive devices. 0-Rjrlejbguu-jmcydsf completes the activity by him/herself with no assistance from a helper. 5-Set-up or Clean-up Assistance-helper sets up or cleans up; patient completes activity. [place] assists only prior to or following the activity. 4-Supervision or Touching Assistance-helper provides verbal cues and/or touching/steadying and/or contact guard assistance as patient completes activity. Assistance may be provided throughout the activity or intermittently. 3-Partial/Moderate Assistance-helper does LESS THAN HALF the effort. [place] lifts, holds or supports trunk or limbs, but provides less than half the effort. 2-Substantial/Maximal Assistance-helper does MORE THAN HALF the effort. [place] lifts or holds trunk or limbs and provides more than half the effort. 4-Hlvwzbmyl-lxkdqv does ALL the effort. Patient does none of the effort to complete the activity. Or, the assistance of 2 or more helpers is required for the patient to complete the activity. If activity was not attempted, code reason: 7-Patient Refused. 9-Not Applicable-not attempted and the patient did not perform the activity before the current illness, exacerbation or injury. 10-Not Attempted due to Environmental Limitations-(lack of equipment, weather restraints, etc.). 88-Not Attempted due to Medical Conditions or Safety Concerns. Sit to Stand (QC): 4 Chair/Yqx-bz-Zolur Xfer(QC): 4 Toilet Transfer (QC): 4 Weight Bearing Right Lower Extremity: Right Weight Bearing/Tolerated Gait Training Does the Patient Walk?: Yes Distance: 20' Walk 10 feet (QC): 4 Gait Persons Needed: 1 Gait Assistive Device: FWW Pt has slow, antalgic gait Treatments OT focused on bathing, dressing, and ALDs. PT focused on transfers, mobility, and LE positioning. Pt in shower with OT, sit to stand to dry bottom CGA. Pt transfers to BSC placed next to shower bench to get dressed (see OT note). Pt holds sitting balance while unsupported from UE and no back support for approx 15 mins with no LOB during dressing and completion of ADLs. Pt then sit to stand CGA and amb 20' to recliner in room. Pt able to elevate leg rest, polar pack is donned on R knee. Pt remains in recliner with all needs met, call light in hand and chair alarm on. Assessment Current Status: Fair Progress Pt requires Max VC to stay on task as pt is easily distracted throughout tx PT Short Term Goals Short Term Goals Time Frame: Jul 07, 2021 Roll Left & Right: 5 Sit to lyin Lying to sitting on side of be: 5 Sit to stand: 5 Chair/xdt-dx-mlpns transfer: 5 Toilet transfer: 5 Car transfer: 5 Walk 10 feet: 5 Walk 50 feet with two turns: 5 Walk 150 feet: 5 Walking 10ft on uneven surface: 5 1 step (curb): 4 4 steps: 4 12 steps: 4 Picking up objects: 4 Does pt use a wc or scooter: Yes Wheel 50ft w/2 turns: 6 Wheel 150 feet: 6 Type: Manual PT Half-Way Goals Superintendent Building Goals PT Superintendent Building Goals Time Frame: Jul 21, 2021 Roll Left & Right (QC): 6 Sit to Lying (QC): 6 Lying-Sitting on Side/Bed(QC): 6 Sit to Stand (QC): 6 Chair/Kms-ay-Krcdg Xfer(QC): 6 Toilet Transfer (QC): 6 Car Transfer (QC): 6 Does the Patient Walk: Yes Walk 10 feet (QC): 6 Walk 50ft with 2 Turns (QC): 6 Walk 150 ft (QC): 6 Walking 10ft on Uneven Surface: 6 1 Step (curb) (QC): 5 4 Steps (QC): 5 12 Steps (QC): 5 Picking up an Object (QC): 6 Does the Pt use WC or Scooter?: Yes Wheel 50 feet with 2 turns (QC: 6 Type: Manual Wheel 150 feet: 6 Type: Manual PT Plan Problem List Problem List: Activity Tolerance, Functional Strength, Safety Treatment/Plan Treatment Plan: Continue Plan of Care Treatment Plan: Bed Mobility, Education, Functional Activity Gilda, Functional Strength, Group Therapy, Gait, Safety, Therapeutic Exercise, Transfers Treatment Duration: Aug 05, 2021 Frequency: At least 5 of 7 days/Wk (IRF) Estimated Hrs Per Day: 1.5 hours per day Patient and/or Family Agrees t: Yes Safety Risks/Education Patient Education: Gait Training, Transfer Techniques, Correct Positioning, Safety Issues Teaching Recipient: Patient Teaching Methods: Discussion Response to Teaching: Reinforcement Needed Time/GCodes Time In: 1415 Time Out: 1450 Total Billed Treatment Time: 35 Total Billed Treatment 1, FA, PAULA BOYLE CHANNEL MARKETING SPECIALIST Jun 23, 2021 15:10
[2021-06-23] MEDS ORDERED: LORazepam INJ 2 MG/ML (ATIVAN) VIAL IM PRN (15:30)
[2021-06-23] MEDS ORDERED: ZIPRASIDONE 20 MG INJ (GEODON) VIAL IM PRN (15:30)
[2021-06-23] MEDS ORDERED: WATER (STERILE) FOR INJ 10 ML BTL INJ SCH ×2 (15:30)
[2021-06-23] MEDS ORDERED: fentaNYL INJ 100 MCG/2 ML AMP IVP PRN (15:30)
[2021-06-23] MEDS ORDERED: hydrALAZINE (APRESOLINE) 25 MG TAB PO PRN (15:30)
[2021-06-23] MEDS ORDERED: cloNIDine 0.1 MG (CATAPRES) TAB PO PRN (15:30)
[2021-06-23] MEDS ORDERED: ONDANSETRON 4 MG/2 ML (SDV) Z0FRAN IVP PRN (15:30)
[2021-06-23] MEDS ORDERED: ACETAMINOPHEN 325 MG TABLET PO PRN (15:30)
[2021-06-23] MEDS ORDERED: diphenhydrAMINE 50 MG/ML INJ (BENADRYL) IVP PRN (15:30)
[2021-06-23] MEDS ORDERED: ONDANSETRON 4 MG (ZOFRAN) ORAL DISSOLVE TAB PO PRN (15:30)
[2021-06-23] MEDS: RT-ALBUTEROL SULF 2.5 MG/3 ML PRE-MIX VIAL INH SCH (19:58)
[2021-06-23 20:11] VITALS: BP 150/53
[2021-06-23] MEDS: SENNA W/DOCUSATE (SENOKOT S) TABLET PO SCH ×2 (20:40→20:41)
[2021-06-23] MEDS: GABAPENTIN 100 MG (NEURONTIN) CAP PO SCH (20:40)
[2021-06-23] MEDS: polyethylene glycoL POWDER 17 GM (MIRALAX) PACK PO SCH ×2 (20:41)
[2021-06-23] MEDS: CEFEPIME INJECTION 2,000 MG in NS (IVPB) 50 ML IV SCH (20:41)
[2021-06-24] MEDS: LEVOTHYROXINE 75 MCG (LEVOTHROID) TABLET PO SCH (05:45)
[2021-06-24] MEDS: MULTIVIT W/MINERALS TAB (THERAGRAN M) PO SCH (05:45)
--- NOTE | 2021-06-24 05:48 | PM&R Post Admission Assessment ---
PM&R HP Date of Visit: Jun 24, 2021 Time of Visit: 09:00 History of Present Illness CC: Debility Following Right Knee Replacement and Debility from Hospital Acquired Pneumonia HPI: This is an 80yoWF who presents from 4th floor to rehab after a hospital course in the ICU for acute hypoxic respiratory due to facility acquired pneumonia. She had had a knee replacement uncomplicated but suffered from volume overload and pneumonia. Currently she is down to 5 liters of O2 and ready to participate in therapy. MedSurg:Hospital Course: Pt had an uncomplicated hospital course mostly in the ICU for hospital acquired pneumonia and acute respiratory failure. She required IV antibiotics and IV diuresis along with Dr. Dixon consultation and EICU consultation. She improved immensely and was ready to go to inpatient rehab. Pt is an 80yoWF who underwent an uneventful right total knee arthroplasty on 06/17/21, performed by Dr. Barton. She was admitted to the IRF on 06/18/21 for PT and OT due to debility following her R knee arthroplasty. During her stay she developed crackles in lower lungs and post op fever on 06/20/2021. A right sided effusion and atalectsis consistent with PNA was confirmed with CXR and CT. (CT performed to R/O PE due to Xarelto which was discontinued several days prior to knee replacement surgery and especially given the fact that CXR and PCT and labs were negative the day before) On 06/20/2021 she was moved from IRF up to ICU due to increasing O2 requirement in new onset hypoxia requiring supplemental oxygen complicated by her PNA. IV abx and intense supportive care was delivered as well. On 06/22/2021 with improvement of her sx she was moved down the medical floor for continued supportive care. On 06/23/2021 after further improvement with PT and decreased need for O2, pt was moved back to IRF to continue PT and OT to improve debility associated with her right knee arthroplasty and continued PNA recovery. JAISON SCHAEFER Jun 23, 2021 11:56 Past Qlsogiu-Iggyfq-Pzelzf Hx Past Med/Social Hx: Reviewed Nursing Past Med/Soc Hx, Reviewed and Corrections made Patient Social History Marrital Status: cohabiting Employed/Student: retired Alcohol Use: Denies Use Smoking Status: Former Smoker Recent Hopitalizations: No Immunizations Up To Date Tetanus Booster (TDap): Unknown Pediatric: No Date of Pneumonia Vaccine: Apr 12, 2018 Date of Influenza Vaccine: May 08, 2021 Seasonal Allergies Seasonal Allergies: Yes Past Medical History Surgeries: Coronary Stent, Hysterectomy, Pacemaker Respiratory: Pneumonia Currently Using CPAP: No Currently Using BIPAP: No Cardiac: Atrial Fibrillation, High Cholesterol, Hypertension Neurological: Dementia, Traumatic Brain Injury (10/2020) Reproductive: No Sexually Transmitted Disease: No HIV/AIDS: No Female Reproductive Disorders: Denies Hysterectomy Musculoskeletal: Arthritis, Chronic Back Pain Endocrine: Hypothyroidsim HEENT: Cataract Hearing Impairment: Hard of Hearing, Hearing Aide Right, Hearing Aide Left History of Blood Disorders: No Adverse Reaction to Blood Rogers: No Family History Patient reports no known family medical history. No Pertinent Family Hx Prior Level of Function Bed Mobility: 6 Transfers: 6 Gait: 6 Stairs: 6 Indoor Mobility (Ambulation): Independent Stairs: Independent Prior Devices Use: Other-see list below Cane, quad cane. Has 4WW at home. 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 Drive Self: No Current Level of Fuctioning Roll Left to Right: 4 Sit to Lyin Lying to Sitting/Side of Bed: 4 Sit to Stand: 4 Chair/Hpm-cz-Dvldh Xfer: 4 Car Transfer: 3 Does the Patient Walk: Yes Mode of Locomotion: Walk Anticipated Mode of Locomotion: Walk Walk 10 feet: 4 Walk 50 ft with 2 Turns: 4 Walk 150 ft: 88 Walking 10ft on uneven surface: 4 Gait Assistive Device: FWW Does the Pt Use a Wheelchair: Yes Wheelchair Distance: 50 Wheel 50 ft with 2 turns: 4 Wheel 150 ft: 88 Type of Wheelchair: Manual #of Steps: 0 1 Step (curb): 88 4 Steps: 88 12 Steps: 88 Picking up an Object: 88 Eatin (set up with lunch) Oral Hygiene: 5 (per clinical judgment.) Shower/Bathe Self: 3 (Required assist to cleanse buttocks) Upper Body Dressin Lower Body Dressin (Pt required assist to hike LB dressing) On/Off Footwear: 3 Toileting Hygiene: 7 PM&R Allergy/Meds/Data Review Allergies Coded Allergies: Penicillins (Verified Allergy, Unknown, 06/23/21) pineapple (Verified Allergy, Unknown, 06/23/21) Home Medications Scheduled Atorvastatin Calcium (Atorvastatin Calcium), 20 MG PO DAILY, (Reported) Carvedilol (Carvedilol), 12.5 MG PO BID, (Reported) Diltiazem HCl (Dilt-Xr), 240 MG PO DAILY, (Reported) Furosemide (Furosemide), 20 MG PO DAILY, (Reported) Gabapentin (Gabapentin), 100 MG PO BID, (Reported) Levothyroxine Sodium (Levothyroxine Sodium), 75 MCG PO DAILY, (Reported) Potassium Chloride (K-Tab ER), 20 MEQ PO DAILY, (Reported) Rivaroxaban (Xarelto), 20 MG PO DAILY, (Reported) Current Medications Current Medications Reviewed Review of Systems Constitutional: see HPI, malaise, weakness EENTM: no symptoms reported Respiratory: cough, dyspnea on exertion, short of breath Cardiovascular: no symptoms reported Gastrointestinal: no symptoms reported Genitourinary: no symptoms reported Musculoskeletal: back pain, joint pain Skin: no symptoms reported Psychiatric/Neurological: Depressed All Other Systems Reviewed Negative Unless Noted: Yes Physical Exam Physical Exam Vital Signs Vital Signs - First Documented 06/23/21 06/23/21 06/23/21 13:51 14:24 20:11 Temp 36.6 Pulse 67 Resp 20 B/P (MAP) 163/70 (101) Pulse Ox 95 O2 Delivery Room Air O2 Flow Rate 5.00 Capillary Refill : Height, Weight, BMI Height: 5'9.00" Weight: 171lbs. 9.0oz. [id number]; 25.49 BMI Method:Stated General Appearance: No Apparent Distress, WD/WN, Chronically ill Eyes: Bilateral Eye Normal Inspection, Bilateral Eye PERRL HEENT: PERRL/EOMI, Normal ENT Inspection, Pharynx Normal Neck: Full Range of Motion, Normal Inspection, Non Tender, Supple, Carotid Bruit Respiratory: Chest Non Tender, Normal Breath Sounds, No Accessory Muscle Use, No Respiratory Distress, Crackles, Decreased Breath Sounds Cardiovascular: Regular Rate, Rhythm, No Edema, No Gallop, No JVD, No Murmur, Normal Peripheral Pulses Gastrointestinal: Normal Bowel Sounds, No Organomegaly, No Pulsatile Mass, Non Tender, Soft Back: Normal Inspection, No CVA Tenderness, No Vertebral Tenderness Extremity: Normal Capillary Refill, Normal Inspection, Normal Range of Motion (excep right leg), Non Tender, No Calf Tenderness, No Pedal Edema Neurologic/Psychiatric: Alert, Oriented x3, No Motor/Sensory Deficits, Normal Mood/Affect Skin: Normal Color, Warm/Dry Lymphatic: No Adenopathy PM&R Medical Assessment & Plan REHAB/MEDICAL ASSESSMENT AND PLAN: REHAB IMPAIRMENT GROUP: Right knee replacement complicated with postop facility acquired pneumonia and respiratory insufficiency ETIOLOGIC DIAGNOSIS: Right knee replacement complicated with postop facility acquired pneumonia and respiratory insufficiency The comorbidities that impact the patients function and/or functional outcome by: dementia, PNA, Aortic stenosis REHAB PLAN: The patient is being admitted to our comprehensive inpatient rehabilitation facility and can tolerate the intensity of service consisting of at least: 180 minutes of therapy a day, 5 out of 7 days a week Rehab treatment will consist of: PT OT will focus on regaining function with use of assistive devices in order to return home The patient/family has a good understanding of our discharge process and will benefit from an interdisciplinary inpatient rehabilitation program. The patient has potential to make improvement and is in need of at least two of the following multidisciplinary therapies including but not limited to physical, occupational, speech, and prosthetics and orthotics. Additionally the patient will need services from respiratory, nutritional services, wound care, psychology, etc. (Customize this to each patient). Given the patients complex condition and risk of further medical complications, rehabilitation services cannot be safely or effectively provided at a lower level of care such as a long term facility. BARRIERS TO DISCHARGE: Postop pneumonia with cognitive deficit ESTIMATED LOS: 7 days DISPOSITION: Home RELEVANT CHANGES SINCE PREADMISSION SCREENING: I have compared the patients medical and functional status at the time of the preadmission screening and there are: No changes PROGNOSIS: Good REHABILITATION GOALS: 1. PT OT will focus on regaining function with use of assistive devices in order to return home All the above goals were reviewed with the patient and he/she is in agreement. By signing this document, I acknowledge that I have personally performed a full physical examination on this patient within 24 hours of admission to this inpatient rehabilitation facility and have determined the patient to be able to tolerate the above course of treatment at an intensive level for a reasonable period of time. I will be completing a detailed individualized Plan of Care for this patient by day #4 of the patients stay based upon the Preadmission Screen, the Post-Admission Evaluation, and the therapy evaluations. Admission Dx/Comorbidities: (1) Status post right knee replacement ICD Codes: Z96.651 - Presence of right artificial knee joint (2) Acute respiratory failure with hypoxia Status: Acute ICD Codes: J96.01 - Acute respiratory failure with hypoxia (3) Paroxysmal A-fib Status: Chronic ICD Codes: I48.0 - Paroxysmal atrial fibrillation (4) HTN (hypertension) Status: Chronic ICD Codes: I10 - Essential (primary) hypertension (5) Hypothyroidism Status: Chronic ICD Codes: E03.9 - Hypothyroidism, unspecified (6) Hypertension Status: Acute ICD Codes: I10 - Essential (primary) hypertension Assessment/Plan Assessment and Plan Assess & Plan/Chief Complaint Assessment: Status post acute respiratory distress on 06/20/2021 requiring ICU transfer PNA on CXR 06/20/2021 and PCT elevated but negative the day before with CXR and PCT normal Sepsis Elevated BNP acute on chronic CHF Pacemaker Previous TVAR for aortic stenosis and current echo report severe aortic stenosis again may need repeat procedure AF OAC disrupted due to ortho surgery so required CT angiogram to r/o PE which was negative for PE Dementia? SLUMS Advanced age s/p right knee replacement POD # 7 h/o SIVA s/p critical illness 09/2020 requiring right ureter stent for obstruction of uncertain etiology Valvular heart disease HTN with severe OOC status post op Hypothyroidism Presbycusis Recent TBI 10/2020 with scalp laceration which could contribute to cognitive decline Plan: IV abx O2 Cards consult EICU consult OAC 06/21/21: IV abx Lasix Cardiology appreciated Pain control CPM PT OT CPM Transfer to step down 06/22/2021: Transfer to fourth floor PT and OT Appreciate Dr. Dixon 06/23/2021: Ready for rehab 06/24/21: Confusion monitoring Rehab protocol DAYA VILLEGAS DO Jun 24, 2021 05:48
[2021-06-24 07:00] LABS: BASOPHILS # (AUTO) 0.1 10^3/uL (0.0-0.1); BASOPHILS % (AUTO) 1 % (0-10); EOSINOPHILS # (AUTO) 0.3 10^3/uL (0.0-0.3); EOSINOPHILS % (AUTO) 4 % (0-10); HEMATOCRIT 26 % (35-52); HEMOGLOBIN 7.9 g/dL (11.5-16.0); LYMPHOCYTES % (AUTO) 14 % (12-44); MEAN CORPUSCULAR HEMOGLOBIN 30 pg (25-34); MEAN CORPUSCULAR HGB CONC 31 g/dL (32-36); MEAN CORPUSCULAR VOLUME 96 fL (80-99); MEAN PLATELET VOLUME 9.8 fL (9.0-12.2); MONOCYTES % (AUTO) 13 % (0-12); NEUTROPHILS # (AUTO) 5.2 10^3/uL (1.8-7.8); NEUTROPHILS % (AUTO) 68 % (42-75); PLATELET COUNT 323 10^3/uL (130-400); WHITE BLOOD COUNT 7.7 10^3/uL (4.3-11.0)
[2021-06-24 07:07] LABS: ALBUMIN 3.1 GM/DL (3.2-4.5); POTASSIUM 4.2 MMOL/L (3.6-5.0)
[2021-06-24 07:08] LABS: CALCIUM 8.8 MG/DL (8.5-10.1)
[2021-06-24 07:11] LABS: BILIRUBIN,TOTAL 0.9 MG/DL (0.1-1.0)
[2021-06-24 07:13] LABS: CREATININE SERUM 0.85 MG/DL (0.60-1.30)
[2021-06-24 07:55] VITALS: BP 129/62
[2021-06-24] MEDS: GABAPENTIN 100 MG (NEURONTIN) CAP PO SCH ×2 (08:29→20:19)
[2021-06-24] MEDS: RIVAROXABAN 20 MG TABLET (XARELTO) PO SCH (08:29)
[2021-06-24] MEDS: oxyCODONE/APAP 5/325MG (PERCOCET 5) TABLET PO PRN ×2 (08:29→20:20)
[2021-06-24] MEDS: SENNA W/DOCUSATE (SENOKOT S) TABLET PO SCH ×4 (08:29→20:20)
[2021-06-24] MEDS: KCL 10 MEQ TAB (MICRO K) PO SCH (08:30)
[2021-06-24] MEDS: FAMOTIDINE 20 MG (PEPCID) TABLET PO SCH (08:30)
[2021-06-24] MEDS: ASPIRIN E.C. 81 MG (ECOTRIN) TAB PO SCH (08:30)
[2021-06-24] MEDS: polyethylene glycoL POWDER 17 GM (MIRALAX) PACK PO SCH ×4 (09:00→20:20)
--- NOTE | 2021-06-24 09:09 | Physical Therapy Daily Note ---
PT Daily Note-Current Subjective Patient in recliner pre tx, agrees to PT, has unrated pain in right knee but wants pain meds, nurse notified. Appearance Patient in bed post tx with nurse call, phone, tray, bed alarm on, ice on. Mental Status Patient Orientation: Person, Confused, Place, Situation Transfers SCALE: Activities may be completed with or without assistive devices. 1-Xcbhmzkhiv-uttmpwc completes the activity by him/herself with no assistance from a helper. 5-Set-up or Clean-up Assistance-helper sets up or cleans up; patient completes activity. Hilliards assists only prior to or following the activity. 4-Supervision or Touching Assistance-helper provides verbal cues and/or touching/steadying and/or contact guard assistance as patient completes activi ty. Assistance may be provided throughout the activity or intermittently. 3-Partial/Moderate Assistance-helper does LESS THAN HALF the effort. Hilliards lifts, holds or supports trunk or limbs, but provides less than half the effort. 2-Substantial/Maximal Assistance-helper does MORE THAN HALF the effort. Hilliards lifts or holds trunk or limbs and provides more than half the effort. 9-Vjfrchvqm-lyfsdv does ALL the effort. Patient does none of the effort to complete the activity. Or, the assistance of 2 or more helpers is required for the patient to complete the activity. If activity was not attempted, code reason: 7-Patient Refused. 9-Not Applicable-not attempted and the patient did not perform the activity before the current illness, exacerbation or injury. 10-Not Attempted due to Environmental Limitations-(lack of equipment, weather restraints, etc.). 88-Not Attempted due to Medical Conditions or Safety Concerns. Roll Left & Right (QC): 6 Sit to Lying (QC): 4 Sit to Stand (QC): 4 Chair/Mbk-lf-Jylhh Xfer(QC): 4 CGA, cues for hand placement and safety, patient needs assist getting pants on at the beginning of tx Weight Bearing Right Lower Extremity: Right Weight Bearing/Tolerated Gait Training Distance: 120', 70', 50' Walk 10 feet (QC): 4 Walk 50 ft with 2 Turns(QC): 4 Gait Persons Needed: 1 Gait Assistive Device: FWW slow, antalgic, tends to keep walker too far in front of her and needs cues to correct this. Exercises Seated Therapy Exercises: Ankle pumps, Long arc quads, Hip flexion, Hip abd/add (with ball and RTB) Seated Reps: 20 Standing: Heel/toe raises, Mini squats NuStep Minutes: 15 NuStep Workload: 5 Treatments dressing, transfers, bed mobility, ambulation, functional strengthening Assessment Current Status: Fair Progress Patient needs frequent rest breaks due to pain, got pain meds during tx but didn't seem to help. PT Short Term Goals Short Term Goals Time Frame: Jul 07, 2021 Roll Left & Right: 5 Sit to lyin Lying to sitting on side of be: 5 Sit to stand: 5 Chair/btd-qa-tonca transfer: 5 Toilet transfer: 5 Car transfer: 5 Walk 10 feet: 5 Walk 50 feet with two turns: 5 Walk 150 feet: 5 Walking 10ft on uneven surface: 5 1 step (curb): 4 4 steps: 4 12 steps: 4 Picking up objects: 4 Does pt use a wc or scooter: Yes Wheel 50ft w/2 turns: 6 Wheel 150 feet: 6 Type: Manual PT Long-Term Goals Long-Term Goals PT Labor Mediator Goals Time Frame: Jul 21, 2021 Roll Left & Right (QC): 6 Sit to Lying (QC): 6 Lying-Sitting on Side/Bed(QC): 6 Sit to Stand (QC): 6 Chair/Ucd-dv-Tzlbi Xfer(QC): 6 Toilet Transfer (QC): 6 Car Transfer (QC): 6 Does the Patient Walk: Yes Walk 10 feet (QC): 6 Walk 50ft with 2 Turns (QC): 6 Walk 150 ft (QC): 6 Walking 10ft on Uneven Surface: 6 1 Step (curb) (QC): 5 4 Steps (QC): 5 12 Steps (QC): 5 Picking up an Object (QC): 6 Does the Pt use WC or Scooter?: Yes Wheel 50 feet with 2 turns (QC: 6 Type: Manual Wheel 150 feet: 6 Type: Manual PT Plan Problem List Problem List: Activity Tolerance, Functional Strength, Safety, Balance, Gait, Transfer, Bed Mobility, ROM Treatment/Plan Treatment Plan: Continue Plan of Care Treatment Plan: Bed Mobility, Education, Functional Activity Gilda, Functional Strength, Group Therapy, Gait, Safety, Therapeutic Exercise, Transfers Treatment Duration: Aug 05, 2021 Frequency: At least 5 of 7 days/Wk (IRF) Estimated Hrs Per Day: 1.5 hours per day Patient and/or Family Agrees t: Yes Safety Risks/Education Patient Education: Gait Training, Transfer Techniques, Correct Positioning, Safety Issues Teaching Recipient: Patient Teaching Methods: Demonstration, Discussion Response to Teaching: Reinforcement Needed Time/GCodes Time In: 0800 Time Out: 914 Total Billed Treatment Time: 75 Total Billed Treatment 1 visit GT 30' EX 45' SABRINA SHERMAN PT Jun 24, 2021 09:09
[2021-06-24] MEDS: RT-ALBUTEROL SULF 2.5 MG/3 ML PRE-MIX VIAL INH SCH ×2 (09:25→20:48)
--- NOTE | 2021-06-24 09:30 | Cardiology Progress Note ---
Subjective Date Seen by Provider: Jun 24, 2021 Time Seen by Provider: 08:10 Subjective/Events-last exam Patient is sitting up in chair, reports dyspnea continues to improve. Objective-Cardiology Exam Last Set of Vital Signs Vital Signs 06/25/21 06/25/21 07:45 09:00 Temp 36.7 Pulse 67 Resp 20 B/P (MAP) 135/70 (91) Pulse Ox 97 O2 Delivery Nasal Cannula O2 Flow Rate 3.00 I&O General: Alert, Oriented X3, Cooperative HEENT: Atraumatic, PERRLA Neck: Supple, No JVD, No Thyromegaly Lungs: Clear to Auscultation, Normal Air Movement Heart: Regular Rate, Normal S1, Normal S2, No Murmurs Abdomen: Normal Bowel Sounds, Soft, No Tenderness, No Hepatosplenomegaly, No Masses Extremities: No Edema Skin: No Rashes Results Lab A/P-Cardiology Admission Diagnosis s/p Acute respiratory failure pneumonia CAD Assessment/Plan Status post acute respiratory insufficiency, hypoxemia, improved, feeling better. Pneumonia, receiving cefepime. Managed by primary care s/p R TKR, continue with PT/OT Coronary artery disease with history of stent to LAD. Underwent cardiac catheterization in July 2017 in [place] revealing patent stent with nonobstructive disease. Continue to monitor. History of severe aortic valve stenosis, status post TAVR done September 06, 2017 in [place] with uneventful deployment of a 26 mm Medtronic Evolut Pro. Most recent 2D Echo 10/12/18 revealing mechanical prothesis present in aortic valve. Peak gradient across prosthetic valve is 26 mmHg, mean gradient 13mmHg, calculated valve area 2.41 cm squared. Mild AR. there is perivalvular regurg, Mod TR, Repeat 2D echo was done on June 20, 2021 showing moderate to severe LVH with normal systolic function, significant deterioration in the aortic valve with a peak gradient of 91 mmHg, valve area 1.4 cm. Mild mitral valve stenosis, pulmonary hypertension with PA pressure 50 to 55 mmHg Patient will need close monitoring and she probably will need another TAVR in the near future Paroxysmal atrial fibrillation, currently on Xarelto, Coreg and diltiazem. Continue to monitor HTP- 2D Echo done June 2021 with PA 50-55mmHg. Mild bilateral carotid stenosis, history of syncope. Last ultrasound was done in July 2018, continue to monitor. Sick sinus syndrome, history of permanent pacemaker. Continue to monitor. Hypertension, restart medications and continue to monitor. Hyperlipidemia, monitored as outpatient. Hypothyroidism, patient is maintained on amiodarone,continue to monitor. KIM SAAVEDRA Jun 24, 2021 09:30 EDY GOOD MD Jun 25, 2021 09:36
[2021-06-24] MEDS: CEFEPIME INJECTION 2,000 MG in NS (IVPB) 50 ML IV SCH ×2 (09:34→20:20)
--- NOTE | 2021-06-24 10:17 | ST Cognitive Linguistic Eval ---
Speech Evaluation-General Medical Diagnosis s/p right TKR, respiratory distress, debility Onset Date: Jun 17, 2021 Therapy Diagnosis Therapy Diagnosis: Cognitive-communication Referral Referring Physician: Dr. Portillo Medical History Pertinent Medical History: Atrial Fib, CAD, Heart Failure, HTN, Hypothroidism Reviewed History: Yes Social History Current Living Status: Spouse Speech PLF-Current Status Prior Level of Function Patient lives in her home with her . Subjective Patient was resting in her bed, states she is feeling better. Language Eval: Auditory Comprehends Simple Yes/No Ques: Functional Indent/Objects Multiple [place]: Functional Ident/Pics in Multiple [place]: Functional Follows 1-Step Commands: Functional Follows Complex Directions: Mild Follows General Conversations: Mild Language Eval: Verbal Language Completes Spontaneous Greeting: Functional Produces Auto, Serial Info: Functional Imitates Simple Words/Phrases: Functional Word Finding: Functional Requests Basic Needs: Functional States Basic Personal Info: Mild Expresses Complex Ideas: Mild Cognitive Patient Orientation Oriented x3 Objective Cognitive Domain Attention: WNL Memory: Mild Problem Solving: Mild Executive Functions: Mild Visuospatial Skills: WNL Composite Severity Rating: Mild Clock Drawing Severity Rating: Mild Objective Formal/Standardized Tests [facility] Mental Status ([facility]) Results 24/30, Mild Neurocognitive Disorder range of function Oral Motor/Speech Production Within Normal Limits Impression Patient is a pleasant 80 y/o female who was readmitted to the ARU s/p right knee replacement. The patient was given the SLUMS at bedside with a score of 24/30 obtained. This score is within the MNCD range of function. It indicates a need for ST services. Focus of therapy to improve cognitive function for safety awareness and memory. Speech Patient Assess Expression of Ideas/Wants: Frequently (2) Understanding Verbal Content: Sometimes Understands(2) Brief Interview-Mental Status: Yes Repetition of Three Words: Three (3) Temporal Orientation: Year: Missed by 1 year (2) Temporal Orientation: Month: Accurate within 5 days(2) Temporal Orientation: Day: Correct (1) Recall : Wear to say "Sock": No, could not recall (0) Recall : Color: No, could not recall (0) Recall : Bed: No, could not recall (0) Memory/Recall Ability: Current season, That he or she is in a hsp/hsp unit Speech Short Term Goals Short Term Goals Short Term Goals 1) The patient will complete memory tasks related to her daily needs at 75% or greater with minimal cues. 2) The patient will complete safety awareness tasks related to her daily needs at 75% or greater with minimal cues. 3) The patient will complete problem solving tasks related to her daily needs at 75% or greater with minimal cues. Speech Drop Board Worker Goals Drop Board Worker Goals Patient will improve cognitive function abilities in order to return home with decreased assistance and safe. Speech-Plan Patient/Family Goals Patient/Family Goals: Patient will return home where she lives with her . Treatment Plan Speech Therapy Treatment Plan: Continue Plan of Care Frequency: 4 times per week (Patient will receive skilled ST services 4-5x a week) Estimated Hrs Per Day: .5 hour per day Rehab Potential: Fair Barriers to Learning: Patient's decreased cognitive function, age, safety awareness Pt/Family Agrees to Plan: Yes Safety Risks/Education Teaching Recipient: Patient, Family, Significant Other Teaching Methods: Discussion Response to Teaching: Verbalize Understanding Education Topics Provided: Safety within her room and communication of wants/needs Time Speech Therapy Time In: 10:00 Speech Therapy Time Out: 10:30 Total Billed Time: 30 Billed Treatment Time 1, PATRICIA CROWELL [address] Jun 24, 2021 10:17
--- NOTE | 2021-06-24 11:31 | Individualized Plan of Care ---
Individualized Plan of Care Rehab Nursing IPOC Order Admission Date Jun 23, 2021 at 13:30 Current Orders Orders Admission Order(Inpt,Obs,Sdc) (06/23/21 11:42) Vital Signs: Per Unit Policy ( (06/23/21 11:42) Mikie Stuart (06/23/21 11:42) Sequential Compression Device (06/23/21 11:42) Lace Burn Out Tender-Inpt Rehab Con (06/23/21 11:42) Rehab Nursing Orders-Ipoc (06/23/21 11:42) Physical Therapy Rehab Orders (06/23/21 11:42) Occupational Therapy Rehab Ord (06/23/21 11:42) Speech Therapy Rehab Orders (06/23/21 11:42) Cbc With Automated Diff (06/24/21 06:00) Comprehensive Metabolic Panel (06/24/21 06:00) Precautions (Aru) (06/23/21 11:42) Rehab-Intensity Of Therapy (06/23/21 11:42) Initiate Admission Nursing Pro .admission (06/23/21 11:42) Alprazolam Tablet (Xanax Tablet) (06/23/21 11:45) Calcium Carbonate Chew Tablet (Antacid C (06/23/21 11:45) Diphenhydramine Tablet (Benadryl Tablet) (06/23/21 11:45) Docusate Sodium Capsule (Colace Capsule) (06/23/21 11:45) Bisacodyl Suppository (Dulcolax Supposit (06/23/21 11:45) Lactulose Oral Solution (Enulose Oral So (06/23/21 11:45) Na Phos/Na Biphos Enema (Fleet Enema Hunter (06/23/21 11:45) Guaifenesin/Codeine Syrup (Robitussin Ac (06/23/21 11:45) Loperamide Tablet (Imodium Tablet) (06/23/21 11:45) Melatonin Tablet (Melatonin Tablet) (06/23/21 11:45) Polyethylene Glycol Powder Pkt (Miralax (06/23/21 21:00) Ondansetron Oral Dissolve Tab (Zofran (06/23/21 11:45) Senna S Tablet (Senokot S Tablet) (06/23/21 21:00) Initiate Admission Nursing Pro .admission (06/23/21 11:42) Transfer - Bed/Room/Location (06/23/21 13:30) Isolation Central Supply Req (06/23/21 14:43) Code/Resuscitation (06/23/21 15:16) Dressing Order (Intervention) DAILY (06/23/21 15:16) Incentive Spirometry (Nursing) Q2H (06/23/21 15:16) General/Regular (06/23/21 Dinner) Alprazolam Tablet (Xanax Tablet) (06/23/21 15:30) Acetaminophen Tablet/Caplet (Tylenol T (06/23/21 15:30) Albuterol Pre-Mix Nebs (Rt) (Proventil (06/23/21 21:00) Aspirin Enteric Coated Tablet (Ecotrin T (06/24/21 09:00) Atorvastatin Tablet (Lipitor Tablet) (06/23/21 21:00) Bisacodyl Suppository (Dulcolax Supposit (06/23/21 15:30) Calcium Carbonate Chew Tablet (Antacid C (06/23/21 15:30) Cefepime Injection (Maxipime Injection) (06/23/21 21:00) Docusate Sodium Capsule (Colace Capsule) (06/23/21 15:30) Famotidine Tablet (Pepcid Tablet) (06/24/21 09:00) Gabapentin Capsule/Tablet (Neurontin Cap (06/23/21 21:00) Lorazepam Injection (Ativan Injection) (06/23/21 15:30) Lactulose Oral Solution (Enulose Oral So (06/23/21 15:30) Levothyroxine Tablet (Synthroid Tablet) (06/24/21 06:30) Loperamide Tablet (Imodium Tablet) (06/23/21 15:30) Melatonin Tablet (Melatonin Tablet) (06/23/21 15:30) Na Phos/Na Biphos Enema (Fleet Enema Hunter (06/23/21 15:30) Ondansetron Injection (Zofran Injectio (06/23/21 15:30) Ondansetron Oral Dissolve Tab (Zofran (06/23/21 15:30) Potassium Chloride (Tablet) (Klor Con Ta (06/24/21 08:00) Rivaroxaban Tablet (Xarelto Tablet) (06/24/21 08:00) Senna S Tablet (Senokot S Tablet) (06/23/21 21:00) Therapeutic Multivitamin Tab (Vitamins, (06/24/21 07:00) Carvedilol Tablet (Coreg Tablet) (06/23/21 21:00) Clonidine Tablet (Catapres Tablet) (06/23/21 15:30) Diltiazem Cd 24 Hr Capsule (Cardizem Cd (06/24/21 09:00) Diphenhydramine Injection (Benadryl Inje (06/23/21 15:30) Diphenhydramine Tablet (Benadryl Tablet) (06/23/21 15:30) Fentanyl Inj (Sublimaze Injection) (06/23/21 15:30) Guaifenesin/Codeine Syrup (Robitussin Ac (06/23/21 15:30) Hydralazine Tablet (Apresoline Tablet) (06/23/21 15:30) Oxycodone/Apap 5/325mg Tablet (Percocet (06/23/21 15:30) Polyethylene Glycol Powder Pkt (Miralax (06/23/21 21:00) Consult Cardiology (06/23/21 15:16) Mat Initiate Protocol (06/23/21 15:16) Mikie Stuart (06/23/21 15:16) Svn Small Volume Nebulizer (06/23/21 15:16) Patient Visit (06/24/21 ) Gait Training, Ea 15 Min (06/24/21 ) Exercise Therap, Ea 15 Min (06/24/21 ) Patient Visit (06/24/21 ) Therapeutic, Group (06/24/21 ) Patient Visit (06/24/21 ) Speech Sound Lang Comp (06/24/21 ) Treat. Speech/Lang/Voice (06/24/21 ) Rehab Nursing Orders: Ongoing Assess. of Cognitive Status, Ongoing Assess. of Function Status, Bladder Management, Bladder Scan, Bladder Training, Bowel Management, Bowel Training, Disease Management & Educaiton, DVT Prophylaxis, Fall Prevention, Fluid/Electrolyte/Nutrition Mgmt, Infection Prevention, Medication Management & Education, Management of Risks & Complications, Management of Skin Intergrity, Nutrition Management, Pain Management, Patient/Family Support, Wound Management Intensity of Therapy to be met Patient to be seen: Min.3h per day/5 of 7d PT IPOC Problem List: Activity Tolerance, Functional Strength, Safety, Balance, Gait, Transfer, Bed Mobility, ROM Treatment Plan: Continue Plan of Care Bed Mobility, Education, Functional Activity Gilda, Functional Strength, Group Therapy, Gait, Safety, Therapeutic Exercise, Transfers Treatment Duration: Aug 05, 2021 Frequency: At least 5 of 7 days/Wk (IRF) Estimated Hrs Per Day: 1.5 hours per day OT IPOC Problems: Decreased Activ Tolerance, Decreased Safety Aware, Impaired Funct Balance, Impaired Self-Care Skills, Restricted Funct UE ROM OT Treatment, Training and Edu: Yes Plan of Care: ADL Retraining, Functional Mobility, Group Exercise/Act as Ind, UE Funct Exercise/Act Treatment Duration: Jul 17, 2021 Frequency: At least 5 of 7 days/Wk (IRF) Estimated Hrs Per Day: 1.[address] IPOC Speech Therapy Treatment Plan: Continue Plan of Care Treatment Duration: Jun 24, 2021 Frequency: 4 times per week (Patient will receive skilled ST services 4-5x a week) Estimated Hrs Per Day: .5 hour per day Lace Burn Out Tender/Case Mgmt Lace Burn Out Tender/Case Managemen: Discharge Planning Dietitian/Leasing Coordinator Dietitian/Leasing Coordinator to monitor nutritional status and make changes and/or recommendations as needed and work with speech pathology on dietary upgrades as the occur. Physician IPOC Medical Issues being managed closely and that require the 24 hour availability of a physician: Recent orthopedic surgery with complications of postoperative pneumonia with respiratory insufficiency and documentation of confusion and early dementia will require close monitoring for any signs of decompensation again Medical Issues: Bowel/Bladder Function, DVT Prophylaxis, Falls Precautions, Fluid/Electrolyte/Nutrition Balance, Infection Protection, Pain Management, Wound Care Brief Synthesis of Preadmission Screen, Post-Admission Evaluation, and Therapy Evaluations: PT and OT will focus on regaining function with ambulatory devices and increase independence in ADLs in order to return home with fianc Medical Prognosis: Good Anticipated Length of Stay: 7 days DAYA VILLEGAS DO Jun 24, 2021 11:31
--- NOTE | 2021-06-24 12:08 | Occupational Ther Daily Note ---
OT Current Status-Daily Note Subjective Pt denies pain. Agreeable to treatment. Appearance Left sitting EOB. Family in the room. Bed alarm set. RN notified. Mental Status/Objective Patient Orientation: Person Attachments: Oxygen ADL-Treatment Therapy Code Descriptions/Definitions Functional [place] Measure: 0=Not Assessed/NA 4=Minimal Assistance 1=Total Assistance 5=Supervision or Setup 2=Maximal Assistance 6=Modified [place] 3=Moderate Assistance 7=Complete IndependenceSCALE: Activities may be completed with or without assistive devices. 0-Ufboetzbfd-wikkdwv completes the activity by him/herself with no assistance from a helper. 5-Set-up or Clean-up Assistance-helper sets up or cleans up; patient completes activity. [place] assists only prior to or following the activity. 4-Supervision or Touching Assistance-helper provides verbal cues and/or touching/steadying and/or contact guard assistance as patient completes activity. Assistance may be provided throughout the activity or intermittently. 3-Partial/Moderate Assistance-helper does LESS THAN HALF the effort. [place] lifts, holds or supports trunk or limbs, but provides less than half the effort. 2-Substantial/Maximal Assistance-helper does MORE THAN HALF the effort. [place] lifts or holds trunk or limbs and provides more than half the effort. 5-Cypkzqwer-khktwr does ALL the effort. Patient does none of the effort to complete the activity. Or, the assistance of 2 or more helpers is required for the patient to complete the activity. If activity was not attempted, code reason: 7-Patient Refused. 9-Not Applicable-not attempted and the patient did not perform the activity before the current illness, exacerbation or injury. 10-Not Attempted due to Environmental Limitations-(lack of equipment, weather restraints, etc.). 88-Not Attempted due to Medical Conditions or Safety Concerns. Upper Body Dressing (QC): 4 On/Off Footwear: 3 Toileting Hygiene (QC): 4 Toilet Transfer (QC): 3 Pt reclined in bed at OT arrival. Requires repetition and simplification of commands. Supine>sit: SBA. She sat EOB to don shirt and shoes. Min a needed to slide R heel into shoe. Pt able to bend at waist to tie. Several cues throughout session on replacing nasal canula to nose. Sit<>Stand: CGA and Cues for correct hand placement.. Pt ambulated to/from bathroom with use of walker. Poor safety awareness exhibited when ambulating short distance. Pt attempting to reach too far out of ADAM for door handle. Requires cues and demonstration on walker placement. Pt unable to safely lower or stand from standard toilet height without assist. OT positioned commode over toilet for increased height. Post modification, pt able to lower/stand with CGA and use of grab bar. When standing at the sink for grooming tasks, pt needs cues on determining what Red and Blue stand for on the water faucet. Several reminders needed on schedule of events despite repeating several times. Other Treatment Pt stood at sink for static standing activity. Goal to promote increased balance, endurance, safety, and cognitive skills. Pt reports inability to erase letters with use of RUE secondary to old shoulder injury. Thus, activity completed with LUE only. 3 sitting rest breaks needed secondary to fatigue and feelings of nausea. CGA throughout task for safety. Mild unsteadiness with fatigue. Max cues for correct sequencing (from A-P). Pt's [place] language is [place]. Education OT Patient Education: Correct positioning, Energy conservation, Modified ADL techniques, Progress toward Goal/Update tx plan, Purpose of tx/functional activities, Reviewed precautions, Safety issues, Transfer techniques Teaching Recipient: Patient Teaching Methods: Demonstration Response to Teaching: Reinforcement Needed OT Short Term Goals Short Term Goals Time Frame: Jul 03, 2021 Toileting hygiene: 5 Shower/bathe self: 4 Lower body dressin Putting on/taking off footwear: 4 OT Cheese Factory Worker Goals Cheese Factory Worker Goals Time Frame: Jul 17, 2021 Eating (QC): 6 Oral Hygiene (QC): 6 Toileting Hygiene (QC): 6 Shower/Bathe Self (QC): 5 Upper Body Dressing (QC): 6 Lower Body Dressing (QC): 6 On/Off Footwear (QC): 6 Additional Goals: 1-Demonstrate ADL Tasks, 2-Verbalize Understanding, 3- ImproveStrength/Gilda 1=Demonstrate adherence to instructed precautions during ADL tasks. 2=Patient will verbalize/demonstrate understanding of assistive devices/modifications for ADL. 3=Patient will improve strength/tolerance for activity to enable patient to perform ADL's. OT Education/Plan Problem List/Assessment Assessment: Decreased Activ Tolerance, Decreased Safety Aware, Decreased UE Strength, Edema, Impaired Cognition, Impaired Funct Balance, Impaired I ADL's, Impaired Self-Care Skills, Restricted Funct UE ROM Discharge Recommendations Plan/Recommendations: Continue POC Treatment Plan/Plan of Care Treatment,Training & Education: Yes Patient would benefit from OT for education, treatment and training to promote independence in ADL's, mobility, safety and/or upper extremity function for ADL's. Plan of Care: ADL Retraining, Functional Mobility, Group Exercise/Act as Ind, UE Funct Exercise/Act Treatment Duration: Jul 17, 2021 Frequency: At least 5 of 7 days/Wk (IRF) Estimated Hrs Per Day: 1.5 hours per day Rehab Potential: Fair Time/GCodes Start Time: 11:12 Stop Time: 12:00 Total Time Billed (hr/min): 48 Billed Treatment Time 1 visit ADL x2 (30 min) FA (18 min) Savannah Franco OT Jun 24, 2021 12:08
--- NOTE | 2021-06-24 14:11 | Progress Note ---
Standard Progress Note Progress Notes/Assess & Plan Date Seen by a Provider: Jun 24, 2021 Time Seen by a Provider: 11:09 Progress/Assessment & Plan no complaints ambulating no calf tenderness s/p RTKA PT/OT ZO NEGRETE MD Jun 24, 2021 14:11
--- NOTE | 2021-06-24 14:31 | Therapy Group Daily Note ---
Therapy Daily Group Note Patient Education Topic Other List Below Exercises LE Seated Exercise, UE Exercise Session Ratio (pt:therapist): 7:2 Goal of Session: Education on ARU Expectations, Memory Strategies, UE/LE Strengthing Goal Met for this Session: Yes Pt Benefit of Group: Contributions to Others, F/U Use of Strategies @Home, Increased Functional Safety, Increased Functional Strength, Improved Cognition, Recognition of Peers, Socialization Other/Notes Pt ambulated using FWW to ARU [facility] area for OT/PT group. Group consisted of introductions (name, place living, childhood memory), socialization, B UE/LE seated exercises, educational topics of ARU description/expectations and memory. Pt introduced self appropriately and actively listened to peers. Pt able to complete B UE/LE WFL with minimal modifications due to medical issues. Pt acknowledged understanding of educational topics by nodding affirmative and giving own personal strategies. After session, pt lying in bed with call light/phone in reach. All needs met in room. Start Time: 13:00 Stop Time: 14:00 Total Billed Treatment Time: 60 Total Billed Treatment 1-LESTER WILCOX Jun 24, 2021 14:31
[2021-06-24 20:00] VITALS: BP 156/68
[2021-06-25] MEDS: oxyCODONE/APAP 5/325MG (PERCOCET 5) TABLET PO PRN ×3 (01:24→17:03)
[2021-06-25] MEDS: MULTIVIT W/MINERALS TAB (THERAGRAN M) PO SCH (05:57)
[2021-06-25] MEDS: LEVOTHYROXINE 75 MCG (LEVOTHROID) TABLET PO SCH (05:57)
--- NOTE | 2021-06-25 07:41 | Progress Note ---
Standard Progress Note Progress Notes/Assess & Plan Date Seen by a Provider: Jun 25, 2021 Time Seen by a Provider: 07:41 Progress/Assessment & Plan no complaints ambulating no calf tenderness s/p RTKA PT/OT Final Diagnosis feeling much better RLE--incision clean and dry no calf tenderness. neg Gabriela's s/p RTKA doing well cont PT/OT ZO NEGRETE MD Jun 25, 2021 07:41
[2021-06-25 07:45] VITALS: BP 128/58
[2021-06-25] MEDS: KCL 10 MEQ TAB (MICRO K) PO SCH (07:49)
[2021-06-25] MEDS: GABAPENTIN 100 MG (NEURONTIN) CAP PO SCH ×2 (07:49→20:49)
[2021-06-25] MEDS: RIVAROXABAN 20 MG TABLET (XARELTO) PO SCH (07:49)
[2021-06-25] MEDS: ASPIRIN E.C. 81 MG (ECOTRIN) TAB PO SCH (07:49)
[2021-06-25] MEDS: FAMOTIDINE 20 MG (PEPCID) TABLET PO SCH (07:50)
--- NOTE | 2021-06-25 08:32 | Cardiology Progress Note ---
Subjective Date Seen by Provider: Jun 25, 2021 Time Seen by Provider: 08:29 Subjective/Events-last exam Patient is with PT, no new complaints. Objective-Cardiology Exam Last Set of Vital Signs Vital Signs 06/25/21 06/25/21 07:45 09:00 Temp 36.7 Pulse 67 Resp 20 B/P (MAP) 135/70 (91) Pulse Ox 97 O2 Delivery Nasal Cannula O2 Flow Rate 3.00 General: Alert, Oriented X3, Cooperative HEENT: Atraumatic, PERRLA Neck: Supple, No JVD, No Thyromegaly Lungs: Clear to Auscultation, Normal Air Movement Heart: Regular Rate, Normal S1, Normal S2, No Murmurs Abdomen: Normal Bowel Sounds, Soft, No Tenderness, No Hepatosplenomegaly, No Masses Extremities: No Edema Skin: No Rashes A/P-Cardiology Admission Diagnosis s/p Acute respiratory failure pneumonia CAD Assessment/Plan Status post acute respiratory insufficiency, hypoxemia, improved, feeling better. Pneumonia, receiving cefepime. Managed by primary care s/p R TKR, continue with PT/OT Coronary artery disease with history of stent to LAD. Underwent cardiac catheterization in July 2017 in [place] revealing patent stent with nonobstructive disease. Continue to monitor. 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 Most recent 2D Echo 10/12/18 revealing mechanical prothesis present in aortic valve. Peak gradient across prosthetic valve is 26 mmHg, mean gradient 13mmHg, calculated valve area 2.41 cm squared. Mild AR. there is perivalvular regurg, Mod TR, Repeat 2D echo was done on June 20, 2021 showing moderate to severe LVH with normal systolic function, significant deterioration in the aortic valve with a peak gradient of 91 mmHg, valve area 1.4 cm. Mild mitral valve stenosis, pulmonary hypertension with PA pressure 50 to 55 mmHg Patient will need close monitoring and she probably will need another TAVR in the near future Paroxysmal atrial fibrillation, currently on Xarelto, Coreg and diltiazem. Continue to monitor Anemia, continue to monitor H/H. I will d/c ASA HTP- 2D Echo done June 2021 with PA 50-55mmHg. Mild bilateral carotid stenosis, history of syncope. Last ultrasound was done in July 2018, continue to monitor. Sick sinus syndrome, history of permanent pacemaker. Continue to monitor. Hypertension, restart medications and continue to monitor. Hyperlipidemia, monitored as outpatient. Hypothyroidism, patient is maintained on amiodarone,continue to monitor. Supervisory-Addendum Brief Supervisory Addendum Participated in pt care: history, MDM, physical Personally performed: exam, history, MDM Care discussed with: ANUM Results interpretation: Verified all documentation Notes: Patient was seen and evaluated with Kim, examination performed, management plan was discussed, agree with the current scribed note, I made few changes to the note using Italic font Patient was seen during physical therapy session Feeling better, breathing better Down her oxygen to 2 L nasal cannula Continue with physical therapy and continue to monitor We discussed the possibility of redoing her procedure in the future KIM SAAVEDRA Jun 25, 2021 08:32 EDY GOOD MD Jun 25, 2021 09:36
[2021-06-25] MEDS: ONDANSETRON 4 MG (ZOFRAN) ORAL DISSOLVE TAB PO PRN (08:59)
[2021-06-25 09:00] VITALS: BP 135/70
--- NOTE | 2021-06-25 09:04 | Physical Therapy Daily Note ---
PT Daily Note-Current Subjective Pt. hard of hearing but pleasant and agrees to Rx. Needs many repeated instructions and cues to reorient pt. that this is PT time and what the goals are. Pt. initially tolerated Rx well but near of gait session going back to room pt. c/o she was going to pass out as well as nausea and felt she might vomit. Nursing and other therapists near by assisted and brought chair. see further details below Pain Numeric Pain Scale: 5-Moderate Pain Location: Right Location Body Site: Knee Pain Description: Ache Comment: pain c/o right knee during ROM and exercises Mental Status Patient Orientation: Person Attachments: Oxygen (startede at 3 L and was down to 1.5 at end of Rx with sats >90%) pt. hard of hearing and also needed reorientation many times today as to goal and repeated cues for gait pattern as well as exercise technique Transfers SCALE: Activities may be completed with or without assistive devices. 7-Bzmjwooppg-gispoiw completes the activity by him/herself with no assistance from a helper. 5-Set-up or Clean-up Assistance-helper sets up or cleans up; patient completes activity. [place] assists only prior to or following the activity. 4-Supervision or Touching Assistance-helper provides verbal cues and/or touc emiliano/steadying and/or contact guard assistance as patient completes activity. Assistance may be provided throughout the activity or intermittently. 3-Partial/Moderate Assistance-helper does LESS THAN HALF the effort. [place] lifts, holds or supports trunk or limbs, but provides less than half the effort. 2-Substantial/Maximal Assistance-helper does MORE THAN HALF the effort. [place] lifts or holds trunk or limbs and provides more than half the effort. 4-Wmfwsulyd-zwzbyv does ALL the effort. Patient does none of the effort to complete the activity. Or, the assistance of 2 or more helpers is required for the patient to complete the activity. If activity was not attempted, code reason: 7-Patient Refused. 9-Not Applicable-not attempted and the patient did not perform the activity before the current illness, exacerbation or injury. 10-Not Attempted due to Environmental Limitations-(lack of equipment, weather restraints, etc.). 88-Not Attempted due to Medical Conditions or Safety Concerns. Roll Left & Right (QC): 6 Sit to Lying (QC): 5 Lying to Sitting/Side of Bed(Q: 5 Sit to Stand (QC): 5 Chair/Xbz-mp-Suefk Xfer(QC): 4 pt. had episode in hallway requiring mod assist to sit in chair that was brought quickly secondary to sudden c/o that she felt she was going to pass out. pt.also c/o nausea Weight Bearing Right Lower Extremity: Right Weight Bearing/Tolerated Gait Training Does the Patient Walk?: Yes Walk 10 feet (QC): 5 Walk 50 ft with 2 Turns(QC): 5 Walk 150 ft (QC): 5 Gait Persons Needed: 1 Gait Assistive Device: FWW pt. needed repeated cues to advance RLE and heels strike, pt has uneven step length, Exercises Supine Ex: Ankle pumps, Quad Set, Rolling, Glut sets, Heel Slides, Short Arc Quads, Scooting, Straight leg raise, Hip abd/add Supine Reps: 20 Seated Therapy Exercises: Ankle pumps, Sit to stand, Long arc quads, Hip flexion Seated Reps: 15 NuStep Minutes: 8 NuStep Workload: 4 Treatments pt. AROM right knee 5 to 95 degrees after therex. Pt. with episode on return to room : c/o she felt she would pass out and was nauseous, pt needed wheeled to room and was put to bed. see nurses notes and above vitals etc Assessment Current Status: Good Progress episode on return to room , otherwise did well with gait but needs many cues for safety and technique PT Short Term Goals Short Term Goals Time Frame: Jul 07, 2021 Roll Left & Right: 5 Sit to lyin Lying to sitting on side of be: 5 Sit to stand: 5 Chair/unu-cx-hapxd transfer: 5 Toilet transfer: 5 Car transfer: 5 Walk 10 feet: 5 Walk 50 feet with two turns: 5 Walk 150 feet: 5 Walking 10ft on uneven surface: 5 1 step (curb): 4 4 steps: 4 12 steps: 4 Picking up objects: 4 Does pt use a wc or scooter: Yes Wheel 50ft w/2 turns: 6 Wheel 150 feet: 6 Type: Manual PT Senior Living Goals Department Store Manager Goals PT Senior Living Goals Time Frame: Jul 21, 2021 Roll Left & Right (QC): 6 Sit to Lying (QC): 6 Lying-Sitting on Side/Bed(QC): 6 Sit to Stand (QC): 6 Chair/Spl-ru-Oqekt Xfer(QC): 6 Toilet Transfer (QC): 6 Car Transfer (QC): 6 Does the Patient Walk: Yes Walk 10 feet (QC): 6 Walk 50ft with 2 Turns (QC): 6 Walk 150 ft (QC): 6 Walking 10ft on Uneven Surface: 6 1 Step (curb) (QC): 5 4 Steps (QC): 5 12 Steps (QC): 5 Picking up an Object (QC): 6 Does the Pt use WC or Scooter?: Yes Wheel 50 feet with 2 turns (QC: 6 Type: Manual Wheel 150 feet: 6 Type: Manual PT Plan Treatment/Plan Treatment Plan: Continue Plan of Care Treatment Plan: Bed Mobility, Education, Functional Activity Gilda, Functional Strength, Group Therapy, Gait, Safety, Therapeutic Exercise, Transfers Treatment Duration: Aug 05, 2021 Frequency: At least 5 of 7 days/Wk (IRF) Estimated Hrs Per Day: 1.5 hours per day Patient and/or Family Agrees t: Yes Safety Risks/Education Patient Education: Gait Training, Transfer Techniques, Correct Positioning, Disease Process, Safety Issues Teaching Recipient: Patient Teaching Methods: Demonstration, Discussion Response to Teaching: Verbalize Understanding, Return Demonstration, Reinforcement Needed Time/GCodes Time In: 800 Time Out: 900 Total Billed Treatment Time: 60 Total Billed Treatment 1,EX20m,GT15m,FA25m LORA ROBLES AIRLINE OPERATIONS AGENT Jun 25, 2021 09:04
[2021-06-25] MEDS: polyethylene glycoL POWDER 17 GM (MIRALAX) PACK PO SCH ×4 (09:15→20:43)
[2021-06-25] MEDS: SENNA W/DOCUSATE (SENOKOT S) TABLET PO SCH ×4 (09:15→20:43)
[2021-06-25] MEDS: CEFEPIME INJECTION 2,000 MG in NS (IVPB) 50 ML IV SCH (09:56)
[2021-06-25] MEDS: RT-ALBUTEROL SULF 2.5 MG/3 ML PRE-MIX VIAL INH SCH ×2 (10:09→20:38)
--- NOTE | 2021-06-25 10:14 | Speech Therapy Daily Note ---
Speech Daily Progress Note Subjective Date Seen by Provider: Jun 25, 2021 Time Seen by Provider: 00:30 Patient was resting in her bed. She states she has already walked twice this morning. Objective Patient completed a series of questions related to her health, recovery and return home with 90% given 10% cues. Assessment Assessment Current Status: Good Progress Treatment Plan Continue Plan of Care Speech Short Term Goals Short Term Goals Short Term Goals 1) The patient will complete memory tasks related to her daily needs at 75% or greater with minimal cues. 2) The patient will complete safety awareness tasks related to her daily needs at 75% or greater with minimal cues. 3) The patient will complete problem solving tasks related to her daily needs at 75% or greater with minimal cues. Speech System Development Manager Goals [facility] Goals Patient will improve cognitive function abilities in order to return home with decreased assistance and safe. Speech-Plan Patient/Family Goals Patient/Family Goals: Patient plans on returning to her home where she lives with her SO. Treatment Plan Speech Therapy Treatment Plan: Continue Plan of Care Treatment Duration: Jul 03, 2021 Frequency: 4 times per week (Patient will receive skilled ST services 4-5x a week) Estimated Hrs Per Day: .5 hour per day Rehab Potential: Fair Barriers to Learning: Patient's recent health status, age Pt/Family Agrees to Plan: Yes Safety Risks/Education Teaching Recipient: Patient, Significant Other Teaching Methods: Demonstration, Discussion Response to Teaching: Verbalize Understanding, Return Demonstration Education Topics Provided: Continued safety within her room, communication of wants/needs Time Speech Therapy Time In: 10:00 Speech Therapy Time Out: 10:30 Total Billed Time: 30 Billed Treatment Time 1, ESTEBAN Cabrera Jun 25, 2021 10:14
--- NOTE | 2021-06-25 10:28 | Occupational Ther Daily Note ---
OT Current Status-Daily Note Subjective When asked about feeling faint with Physical therapy ~5 minutes prior, Pt unable to recall event. Denies pain. Appearance Returned to supine in bed, alarm set. Spouse in room. Mental Status/Objective Patient Orientation: Person, Confused Attachments: Oxygen ADL-Treatment Therapy Code Descriptions/Definitions Functional [place] Measure: 0=Not Assessed/NA 4=Minimal Assistance 1=Total Assistance 5=Supervision or Setup 2=Maximal Assistance 6=Modified [place] 3=Moderate Assistance 7=Complete IndependenceSCALE: Activities may be completed with or without assistive devices. 3-Rfrfgefznj-mhjjqkw completes the activity by him/herself with no assistance from a helper. 5-Set-up or Clean-up Assistance-helper sets up or cleans up; patient completes activity. [place] assists only prior to or following the activity. 4-Supervision or Touching Assistance-helper provides verbal cues and/or touching/steadying and/or contact guard assistance as patient completes activity. Assistance may be provided throughout the activity or intermittently. 3-Partial/Moderate Assistance-helper does LESS THAN HALF the effort. [place] lifts, holds or supports trunk or limbs, but provides less than half the effort. 2-Substantial/Maximal Assistance-helper does MORE THAN HALF the effort. [place] lifts or holds trunk or limbs and provides more than half the effort. 4-Erqhlbmrm-vlgntr does ALL the effort. Patient does none of the effort to complete the activity. Or, the assistance of 2 or more helpers is required for the patient to complete the activity. If activity was not attempted, code reason: 7-Patient Refused. 9-Not Applicable-not attempted and the patient did not perform the activity before the current illness, exacerbation or injury. 10-Not Attempted due to Environmental Limitations-(lack of equipment, weather restraints, etc.). 88-Not Attempted due to Medical Conditions or Safety Concerns. Upper Body Dressing (QC): 4 Lower Body Dressing (QC): 4 On/Off Footwear: 4 Pt supine in bed at OT arrival. Unable to recall event where she felt like she was going to pass out just 5 minutes prior to OT arrival. Impaired short term memory, requires repetition of commands with poor carry over. She ambulated to/from bathroom with Min a and use of walker. Mod cues for safety with walker management. Partial bathing task completed at sink. Max cues for problem solving how to doff clothing as pt continued to state that it would be easier to just cut her clothing off. Mod cues to move onto next body part as pt often forgetful that she had already washed a specific body part. She washed upper body in sitting, only verbal cues for sequencing needed. She stood to wash marisol area with min a for balance. Cues for safety as pt attempted to bend almost 90 degrees to wash buttocks. Unsteadiness increases as fatigue worsens. Small amount of bowel incontinence contained in brief. While seated, she bent forward to thread BLE's through brief, extra time to lift RLE. Steady assist required as she stood with zero UE support to pull clothing over hips. Education OT Patient Education: Correct positioning, Energy conservation, Modified ADL techniques, Progress toward Goal/Update tx plan, Purpose of tx/functional activities, Rehab process, Safety issues, Transfer techniques Teaching Recipient: Patient Teaching Methods: Demonstration, Discussion Response to Teaching: Reinforcement Needed OT Short Term Goals Short Term Goals Time Frame: Jul 03, 2021 Toileting hygiene: 5 Shower/bathe self: 4 Lower body dressin Putting on/taking off footwear: 4 OT Counselor/Art Therapist Goals [facility] Goals Time Frame: Jul 17, 2021 Eating (QC): 6 Oral Hygiene (QC): 6 Toileting Hygiene (QC): 6 Shower/Bathe Self (QC): 5 Upper Body Dressing (QC): 6 Lower Body Dressing (QC): 6 On/Off Footwear (QC): 6 Additional Goals: 1-Demonstrate ADL Tasks, 2-Verbalize Understanding, 3- ImproveStrength/Gilda 1=Demonstrate adherence to instructed precautions during ADL tasks. 2=Patient will verbalize/demonstrate understanding of assistive devices/modifications for ADL. 3=Patient will improve strength/tolerance for activity to enable patient to perform ADL's. OT Education/Plan Problem List/Assessment Assessment: Decreased Activ Tolerance, Decreased Safety Aware, Impaired Cognition, Impaired Funct Balance, Impaired I ADL's, Impaired Self-Care Skills Discharge Recommendations Plan/Recommendations: Continue POC Therapy Discharge Recommendati: Intermittent Supervision, Bath Aide Treatment Plan/Plan of Care Treatment,Training & Education: Yes Patient would benefit from OT for education, treatment and training to promote independence in ADL's, mobility, safety and/or upper extremity function for ADL's. Plan of Care: ADL Retraining, Functional Mobility, Group Exercise/Act as Ind, UE Funct Exercise/Act Treatment Duration: Jul 17, 2021 Frequency: At least 5 of 7 days/Wk (IRF) Estimated Hrs Per Day: 1.5 hours per day Rehab Potential: Fair Time/GCodes Start Time: 09:00 Stop Time: 09:45 Total Time Billed (hr/min): 45 Billed Treatment Time 1 visit ADL x3 Savannah Franco OT Jun 25, 2021 10:28
--- NOTE | 2021-06-25 12:21 | PM&R Progress Note ---
Subjective HPI/CC On Admission Date Seen by Provider: Jun 25, 2021 Time Seen by Provider: 12:20 Subjective/Events-last exam 06/25/2021: Patient doing really well Wants to go home desperately Had a syncopal episode while in physical therapy Iron infusion indicated Discontinued cefepime Omnicef started Confused at times Hemoglobin 7.9 Review of Systems General: Fatigue, Malaise Pulmonary: Cough Musculoskeletal: leg pain Objective Exam Vital Signs Vital Signs Date Time Temp Pulse Resp B/P (MAP) Pulse Ox O2 Delivery O2 Flow Rate FiO2 06/25/21 20:38 91 Nasal Cannula 2.50 06/25/21 20:00 36.6 61 20 166/61 (96) Capillary Refill : General Appearance: No Apparent Distress, WD/WN, Chronically ill HEENT: PERRL/EOMI, Normal ENT Inspection, Pharynx Normal Neck: Full Range of Motion, Normal Inspection, Non Tender, Supple, Carotid Bruit Respiratory: Chest Non Tender, Normal Breath Sounds, No Accessory Muscle Use, No Respiratory Distress, Crackles, Decreased Breath Sounds Cardiovascular: Regular Rate, Rhythm, No Edema, No Gallop, No JVD, No Murmur, Normal Peripheral Pulses Gastrointestinal: Normal Bowel Sounds, No Organomegaly, No Pulsatile Mass, Non Tender, Soft Back: Normal Inspection, No CVA Tenderness, No Vertebral Tenderness Extremity: Normal Capillary Refill, Normal Inspection, Normal Range of Motion (excep right leg), Non Tender, No Calf Tenderness, No Pedal Edema Neurologic/Psychiatric: Alert, Oriented x3, No Motor/Sensory Deficits, Normal Mood/Affect Skin: Normal Color, Warm/Dry Lymphatic: No Adenopathy Results/Procedures Lab Patient resulted labs reviewed. FIM Transfers Therapy Code Descriptions/Definitions Functional [place] Measure: 0=Not Assessed/NA 4=Minimal Assistance 1=Total Assistance 5=Supervision or Setup 2=Maximal Assistance 6=Modified [place] 3=Moderate Assistance 7=Complete IndependenceSCALE: Activities may be completed with or without assistive devices. 1-Mxkhnavglh-wxrorby completes the activity by him/herself with no assistance from a helper. 5-Set-up or Clean-up Assistance-helper sets up or cleans up; patient completes activity. [place] assists only prior to or following the activity. 4-Supervision or Touching Assistance-helper provides verbal cues and/or touching/steadying and/or contact guard assistance as patient completes activity. Assistance may be provided throughout the activity or intermittently. 3-Partial/Moderate Assistance-helper does LESS THAN HALF the effort. [place] lifts, holds or supports trunk or limbs, but provides less than half the effort. 2-Substantial/Maximal Assistance-helper does MORE THAN HALF the effort. [place] lifts or holds trunk or limbs and provides more than half the effort. 1-Yxyvrepdb-qqiheu does ALL the effort. Patient does none of the effort to complete the activity. Or, the assistance of 2 or more helpers is required for the patient to complete the activity. If activity was not attempted, code reason: 7-Patient Refused. 9-Not Applicable-not attempted and the patient did not perform the activity before the current illness, exacerbation or injury. 10-Not Attempted due to Environmental Limitations-(lack of equipment, weather restraints, etc.). 88-Not Attempted due to Medical Conditions or Safety Concerns. Roll Left to Right (QC): 6 Sit to Lying (QC): 5 Sit to Stand (QC): 5 Chair/Xlw-rz-Hcxwa Xfer(QC): 4 Car Transfer (QC): 3 Gait Training Does the Patient Walk?: Yes Distance: 120', 70', 50' Walk 10 feet (QC): 5 Walk 50 ft with 2 Turns(QC): 5 Walk 150 ft (QC): 5 Walking 10ft/uneven surface-QC: 4 Gait Persons Needed: 1 Gait Assistive Device: FWW Wheelchair Training Does the Pt Use a Wheelchair?: Yes Distance: 50 Wheel 50 ft with 2 turns (QC): 4 Wheel 150 ft (QC): 88 Type of Wheelchair: Manual Stair Training #of Steps: 0 1 Step (curb) (QC): 88 4 Steps (QC): 88 12 Steps (QC): 88 Balance Picking up an Object (QC): 88 ADL-Treatment Eating (QC): 5 (set up with lunch) Oral Hygiene (QC): 5 (per clinical judgment.) Shower/Bathe Self (QC): 3 (Required assist to cleanse buttocks) Upper Body Dressing (QC): 4 Lower Body Dressing (QC): 4 On/Off Footwear (QC): 4 Toileting Hygiene (QC): 4 Toilet Transfer (QC): 3 Assessment/Plan Assessment and Plan Assess & Plan/Chief Complaint Assessment: Status post acute respiratory distress on 06/20/2021 requiring ICU transfer PNA on CXR 06/20/2021 and PCT elevated but negative the day before with CXR and PCT normal Sepsis Elevated BNP acute on chronic CHF Pacemaker Previous TVAR for aortic stenosis and current echo report severe aortic stenosis again may need repeat procedure AF OAC disrupted due to ortho surgery so required CT angiogram to r/o PE which was negative for PE Dementia? 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 Dixon 06/23/2021: Ready for rehab 06/24/21: Confusion monitoring Rehab protocol 06/25/2021: Monitor confusion Iron infusion (1) Status post right knee replacement (2) Acute respiratory failure with hypoxia Status: Acute (3) Paroxysmal A-fib Status: Chronic (4) HTN (hypertension) Status: Chronic (5) Hypothyroidism Status: Chronic (6) Hypertension Status: Acute DAYA VILLEGAS DO Jun 25, 2021 12:20
[2021-06-25] MEDS ORDERED: CYANOCOBALAMIN INJ 1000 MCG/ML IM NR (12:45)
[2021-06-25] MEDS: IRON SUCROSE 200 MG/10 ML (VENOFER) VIAL IV SCH (13:18)
--- NOTE | 2021-06-25 13:19 | Physical Therapy Daily Note ---
PT Daily Note-Current Subjective Pt. eating a sandwich upon entering the room but states" Oh My I want to go with you, lets go walking"! No c/o pain etc Pain Location: No Pain Reported Mental Status Patient Orientation: Person Transfers SCALE: Activities may be completed with or without assistive devices. 7-Nnxzxyzfyo-keggbon completes the activity by him/herself with no assistance from a helper. 5-Set-up or Clean-up Assistance-helper sets up or cleans up; patient completes activity. [place] assists only prior to or following the activity. 4-Supervision or Touching Assistance-helper provides verbal cues and/or touching/steadying and/or contact guard assistance as patient completes activity. Assistance may be provided throughout the activity or intermittently. 3-Partial/Moderate Assistance-helper does LESS THAN HALF the effort. [place] lifts, holds or supports trunk or limbs, but provides less than half the effort. 2-Substantial/Maximal Assistance-helper does MORE THAN HALF the effort. [place] lifts or holds trunk or limbs and provides more than half the effort. 5-Uqeaduhzi-qdwaqi does ALL the effort. Patient does none of the effort to complete the activity. Or, the assistance of 2 or more helpers is required for the patient to complete the activity. If activity was not attempted, code reason: 7-Patient Refused. 9-Not Applicable-not attempted and the patient did not perform the activity before the current illness, exacerbation or injury. 10-Not Attempted due to Environmental Limitations-(lack of equipment, weather restraints, etc.). 88-Not Attempted due to Medical Conditions or Safety Concerns. sit to stand all CGA to min with VCs needed for hands and wt shift Weight Bearing Right Lower Extremity: Right Weight Bearing/Tolerated Gait Training Does the Patient Walk?: Yes Gait Assistive Device: FWW pt. ambulated 70 ft x 2 with CGA FWW many cues for heel strike and knee extension Exercises Seated Therapy Exercises: Ankle pumps, Sit to stand, Long arc quads, Hip flexion Seated Reps: 15 Treatments up in recliner after Rx for meal, call jack at hand Assessment Current Status: Good Progress PT Short Term Goals Short Term Goals Time Frame: Jul 07, 2021 Roll Left & Right: 5 Sit to lyin Lying to sitting on side of be: 5 Sit to stand: 5 Chair/idi-lj-erzhs transfer: 5 Toilet transfer: 5 Car transfer: 5 Walk 10 feet: 5 Walk 50 feet with two turns: 5 Walk 150 feet: 5 Walking 10ft on uneven surface: 5 1 step (curb): 4 4 steps: 4 12 steps: 4 Picking up objects: 4 Does pt use a wc or scooter: Yes Wheel 50ft w/2 turns: 6 Wheel 150 feet: 6 Type: Manual PT [facility] Goals Passenger Solicitor Goals PT [facility] Goals Time Frame: Jul 21, 2021 Roll Left & Right (QC): 6 Sit to Lying (QC): 6 Lying-Sitting on Side/Bed(QC): 6 Sit to Stand (QC): 6 Chair/Aqf-zz-Illwu Xfer(QC): 6 Toilet Transfer (QC): 6 Car Transfer (QC): 6 Does the Patient Walk: Yes Walk 10 feet (QC): 6 Walk 50ft with 2 Turns (QC): 6 Walk 150 ft (QC): 6 Walking 10ft on Uneven Surface: 6 1 Step (curb) (QC): 5 4 Steps (QC): 5 12 Steps (QC): 5 Picking up an Object (QC): 6 Does the Pt use WC or Scooter?: Yes Wheel 50 feet with 2 turns (QC: 6 Type: Manual Wheel 150 feet: 6 Type: Manual PT Plan Treatment/Plan Treatment Plan: Continue Plan of Care Treatment Plan: Bed Mobility, Education, Functional Activity Gilda, Functional Strength, Group Therapy, Gait, Safety, Therapeutic Exercise, Transfers Treatment Duration: Aug 05, 2021 Frequency: At least 5 of 7 days/Wk (IRF) Estimated Hrs Per Day: 1.5 hours per day Patient and/or Family Agrees t: Yes Safety Risks/Education Patient Education: Gait Training, Transfer Techniques, Correct Positioning, Disease Process, Safety Issues Teaching Recipient: Patient Teaching Methods: Demonstration, Discussion Response to Teaching: Verbalize Understanding, Return Demonstration, Reinforcement Needed Time/GCodes Time In: 1300 Time Out: 1315 Total Billed Treatment Time: 15 Total Billed Treatment 1,FAJermainem LORA ROBLES DOLL MAKER Jun 25, 2021 13:19
--- NOTE | 2021-06-25 14:14 | Occupational Ther Daily Note ---
OT Current Status-Daily Note Subjective Pt denies pain, pleasantly confused. Appearance Left sitting in chair, alarm set. all needs within reach. Mental Status/Objective Patient Orientation: Person, Confused Attachments: IV, Oxygen ADL-Treatment Therapy Code Descriptions/Definitions Functional [place] Measure: 0=Not Assessed/NA 4=Minimal Assistance 1=Total Assistance 5=Supervision or Setup 2=Maximal Assistance 6=Modified [place] 3=Moderate Assistance 7=Complete IndependenceSCALE: Activities may be completed with or without assistive devices. 6-Whillalify-edxkasc completes the activity by him/herself with no assistance from a helper. 5-Set-up or Clean-up Assistance-helper sets up or cleans up; patient completes activity. [place] assists only prior to or following the activity. 4-Supervision or Touching Assistance-helper provides verbal cues and/or touching/steadying and/or contact guard assistance as patient completes activity. Assistance may be provided throughout the activity or intermittently. 3-Partial/Moderate Assistance-helper does LESS THAN HALF the effort. [place] lifts, holds or supports trunk or limbs, but provides less than half the effort. 2-Substantial/Maximal Assistance-helper does MORE THAN HALF the effort. [place] lifts or holds trunk or limbs and provides more than half the effort. 8-Ukignbdgg-qauwnk does ALL the effort. Patient does none of the effort to complete the activity. Or, the assistance of 2 or more helpers is required for the patient to complete the activity. If activity was not attempted, code reason: 7-Patient Refused. 9-Not Applicable-not attempted and the patient did not perform the activity before the current illness, exacerbation or injury. 10-Not Attempted due to Environmental Limitations-(lack of equipment, weather restraints, etc.). 88-Not Attempted due to Medical Conditions or Safety Concerns. Other Treatment Pt confused at OT arrival and constantly looking around chair/table. When asked what she was looking for, pt states "I'm not sure, I know I lost something, I just don't know what yet." While seated in chair, she participated in UE exercises with goal to promote increased endurance and strength needed for functional tasks. Pt requires verbal, visual and tactile cues for correct form. She will usually perform 4-5 reps before losing focus and need cues to continue. OT attempted to have pt count reps out loud to help maintain attention, yet pt gets easily distracted. All movements performed to full range (excep R shoulder within available range; ~145 degrees). 10 x1 in all planes. Education OT Patient Education: Exercise program, Progress toward Goal/Update tx plan, Purpose of tx/functional activities Teaching Recipient: Patient Teaching Methods: Demonstration, Discussion Response to Teaching: Reinforcement Needed OT Short Term Goals Short Term Goals Time Frame: Jul 03, 2021 Toileting hygiene: 5 Shower/bathe self: 4 Lower body dressin Putting on/taking off footwear: 4 OT Senior Care Goals Senior Care Goals Time Frame: Jul 17, 2021 Eating (QC): 6 Oral Hygiene (QC): 6 Toileting Hygiene (QC): 6 Shower/Bathe Self (QC): 5 Upper Body Dressing (QC): 6 Lower Body Dressing (QC): 6 On/Off Footwear (QC): 6 Additional Goals: 1-Demonstrate ADL Tasks, 2-Verbalize Understanding, 3- ImproveStrength/Gilda 1=Demonstrate adherence to instructed precautions during ADL tasks. 2=Patient will verbalize/demonstrate understanding of assistive devices/modifications for ADL. 3=Patient will improve strength/tolerance for activity to enable patient to perform ADL's. OT Education/Plan Problem List/Assessment Assessment: Decreased Activ Tolerance, Decreased Safety Aware, Decreased UE Strength, Impaired Cognition, Impaired Funct Balance, Impaired I ADL's, Impaired Self-Care Skills Discharge Recommendations Plan/Recommendations: Continue POC Therapy Discharge Recommendati: 24 Hour Supervision, Bath Aide, Homemaker Support Treatment Plan/Plan of Care Treatment,Training & Education: Yes Patient would benefit from OT for education, treatment and training to promote independence in ADL's, mobility, safety and/or upper extremity function for ADL's. Plan of Care: ADL Retraining, Functional Mobility, Group Exercise/Act as Ind, UE Funct Exercise/Act Treatment Duration: Jul 17, 2021 Frequency: At least 5 of 7 days/Wk (IRF) Estimated Hrs Per Day: 1.5 hours per day Rehab Potential: Fair Time/GCodes Start Time: 13:30 Stop Time: 14:00 Total Time Billed (hr/min): 30 Billed Treatment Time 1 visit EX blue WhatleyelisSavannah OT Jun 25, 2021 14:14
[2021-06-25 20:00] VITALS: BP 166/61
[2021-06-25] MEDS: CEFDINIR 300 MG (OMNICEF) CAP PO SCH (20:49)
[2021-06-26] MEDS: LEVOTHYROXINE 75 MCG (LEVOTHROID) TABLET PO SCH (05:56)
[2021-06-26] MEDS: MULTIVIT W/MINERALS TAB (THERAGRAN M) PO SCH (05:57)
[2021-06-26 07:58] VITALS: BP 117/59
[2021-06-26] MEDS: RIVAROXABAN 20 MG TABLET (XARELTO) PO SCH (08:02)
[2021-06-26] MEDS: FAMOTIDINE 20 MG (PEPCID) TABLET PO SCH (08:06)
[2021-06-26] MEDS: oxyCODONE/APAP 5/325MG (PERCOCET 5) TABLET PO PRN ×3 (08:06→21:07)
[2021-06-26] MEDS: CEFDINIR 300 MG (OMNICEF) CAP PO SCH ×2 (08:07→21:06)
[2021-06-26] MEDS: GABAPENTIN 100 MG (NEURONTIN) CAP PO SCH ×2 (08:07→21:07)
[2021-06-26] MEDS: KCL 10 MEQ TAB (MICRO K) PO SCH (08:11)
[2021-06-26] MEDS: polyethylene glycoL POWDER 17 GM (MIRALAX) PACK PO SCH ×4 (08:12→21:11)
[2021-06-26] MEDS: SENNA W/DOCUSATE (SENOKOT S) TABLET PO SCH ×4 (08:12→21:11)
[2021-06-26 08:57] VITALS: BP 117/59
[2021-06-26] MEDS ORDERED: RT-ALBUTEROL SULF 2.5 MG/3 ML PRE-MIX VIAL INH PRN (09:00)
--- NOTE | 2021-06-26 09:05 | Physical Therapy Daily Note ---
PT Daily Note-Current Subjective Pt.up in recliner states she is having a lot of right knee pain. Rates this at 7/10 before Rx. Pt. agreed to ice and gentle isometric exercise and gait. No c/o dizziness or nausea today Pain Numeric Pain Scale: 7 Location: Right Location Body Site: Knee Pain Description: Stabbing Mental Status Patient Orientation: Person Attachments: Other-See Comments (mask) Transfers SCALE: Activities may be completed with or without assistive devices. 0-Phvyimxlrp-ncuqdoc completes the activity by him/herself with no assistance from a helper. 5-Set-up or Clean-up Assistance-helper sets up or cleans up; patient completes a ctivity. [place] assists only prior to or following the activity. 4-Supervision or Touching Assistance-helper provides verbal cues and/or touching/steadying and/or contact guard assistance as patient completes activity. Assistance may be provided throughout the activity or intermittently. 3-Partial/Moderate Assistance-helper does LESS THAN HALF the effort. [place] lifts, holds or supports trunk or limbs, but provides less than half the effort. 2-Substantial/Maximal Assistance-helper does MORE THAN HALF the effort. [place] lifts or holds trunk or limbs and provides more than half the effort. 7-Twwabuxcs-hijcjo does ALL the effort. Patient does none of the effort to complete the activity. Or, the assistance of 2 or more helpers is required for the patient to complete the activity. If activity was not attempted, code reason: 7-Patient Refused. 9-Not Applicable-not attempted and the patient did not perform the activity before the current illness, exacerbation or injury. 10-Not Attempted due to Environmental Limitations-(lack of equipment, weather restraints, etc.). 88-Not Attempted due to Medical Conditions or Safety Concerns. Sit to Stand (QC): 5 Weight Bearing Right Lower Extremity: Right Weight Bearing/Tolerated Gait Training Does the Patient Walk?: Yes Walk 10 feet (QC): 5 Walk 50 ft with 2 Turns(QC): 5 Walk 150 ft (QC): 4 Gait Persons Needed: 1 Gait Assistive Device: FWW pt. needs near constant reminders to advance R LE and heel strike. No c/o dizziness today with gait but pt. fatigues with gait after 70ft or so and CGA is needed Exercises Supine Ex: Ankle pumps, Quad Set, Glut sets Supine Reps: 20 Seated Therapy Exercises: Ankle pumps, Sit to stand, Long arc quads Seated Reps: 20 NuStep Minutes: 8 NuStep Workload: 3 Treatments icepacks applied to right knee for 10 min with gentle isometric ex to start Assessment Current Status: Good Progress BPs checked in sit and stance secondary to episode yesterday . All WNLs in sit and stance. O2 sats steady above 95% on 1.5 L O2 at rest and with activity PT Short Term Goals Short Term Goals Time Frame: Jul 07, 2021 Roll Left & Right: 5 Sit to lyin Lying to sitting on side of be: 5 Sit to stand: 5 Chair/uso-qr-fsjty transfer: 5 Toilet transfer: 5 Car transfer: 5 Walk 10 feet: 5 Walk 50 feet with two turns: 5 Walk 150 feet: 5 Walking 10ft on uneven surface: 5 1 step (curb): 4 4 steps: 4 12 steps: 4 Picking up objects: 4 Does pt use a wc or scooter: Yes Wheel 50ft w/2 turns: 6 Wheel 150 feet: 6 Type: Manual PT Pharmacy Technician Program Director Goals Pharmacy Technician Program Director Goals PT Pharmacy Technician Program Director Goals Time Frame: Jul 21, 2021 Roll Left & Right (QC): 6 Sit to Lying (QC): 6 Lying-Sitting on Side/Bed(QC): 6 Sit to Stand (QC): 6 Chair/Gww-xi-Vfszm Xfer(QC): 6 Toilet Transfer (QC): 6 Car Transfer (QC): 6 Does the Patient Walk: Yes Walk 10 feet (QC): 6 Walk 50ft with 2 Turns (QC): 6 Walk 150 ft (QC): 6 Walking 10ft on Uneven Surface: 6 1 Step (curb) (QC): 5 4 Steps (QC): 5 12 Steps (QC): 5 Picking up an Object (QC): 6 Does the Pt use WC or Scooter?: Yes Wheel 50 feet with 2 turns (QC: 6 Type: Manual Wheel 150 feet: 6 Type: Manual PT Plan Treatment/Plan Treatment Plan: Continue Plan of Care Treatment Plan: Bed Mobility, Education, Functional Activity Gilda, Functional Strength, Group Therapy, Gait, Safety, Therapeutic Exercise, Transfers Treatment Duration: Aug 05, 2021 Frequency: At least 5 of 7 days/Wk (IRF) Estimated Hrs Per Day: 1.5 hours per day Patient and/or Family Agrees t: Yes Safety Risks/Education Patient Education: Gait Training, Transfer Techniques, Correct Positioning, Disease Process, Safety Issues Teaching Recipient: Patient Teaching Methods: Demonstration, Discussion Response to Teaching: Verbalize Understanding, Return Demonstration, Reinforcement Needed Time/GCodes Time In: 800 Time Out: 900 Total Billed Treatment Time: 60 Total Billed Treatment 1,FA20m,EX25m,GT15m LORA ROBLES POT LINER Jun 26, 2021 09:05
--- NOTE | 2021-06-26 09:29 | Speech Therapy Daily Note ---
Speech Daily Progress Note Subjective Date Seen by Provider: Jun 26, 2021 Time Seen by Provider: 00:30 Patient was sitting up in her recliner following her PT session. arrived half way during the session. Objective Patient completed a series of recall of new information question at 80% with 20% repetitions/cues. Assessment Assessment Current Status: Good Progress Treatment Plan Continue Plan of Care Speech Short Term Goals Short Term Goals Short Term Goals 1) The patient will complete memory tasks related to her daily needs at 75% or greater with minimal cues. 2) The patient will complete safety awareness tasks related to her daily needs at 75% or greater with minimal cues. 3) The patient will complete problem solving tasks related to her daily needs at 75% or greater with minimal cues. Speech Assisted Goals Assisted Goals Patient will improve cognitive function abilities in order to return home with decreased assistance and safe. Speech-Plan Patient/Family Goals Patient/Family Goals: Patient plans on returning to her home where she lives with her . Treatment Plan Speech Therapy Treatment Plan: Continue Plan of Care Treatment Duration: Jul 03, 2021 Frequency: 4 times per week (Patient will receive skilled ST services 4-5x a week) Estimated Hrs Per Day: .5 hour per day Rehab Potential: Fair Barriers to Learning: Patient's mild cognitive deficits Pt/Family Agrees to Plan: Yes Safety Risks/Education Teaching Recipient: Patient, Significant Other Teaching Methods: Demonstration, Discussion Response to Teaching: Verbalize Understanding, Return Demonstration Education Topics Provided: Continued safety and communication of wants/needs. Time Speech Therapy Time In: 09:00 Speech Therapy Time Out: 09:30 Total Billed Time: 30 Billed Treatment Time 1, ESTEBAN Cabrera Jun 26, 2021 09:29
--- NOTE | 2021-06-26 10:38 | Cardiology Progress Note ---
Subjective Date Seen by Provider: Jun 26, 2021 Time Seen by Provider: 10:36 Subjective/Events-last exam Patient was seen during physical therapy session, reported episode of dizziness and lightheadedness after physical therapy yesterday. She was slightly hypotensive then her blood pressure bounced back. Review of Systems General: No Chills, No Night Sweats; Fatigue, Malaise; No Appetite, No Other HEENT: No Head Aches, No Visual Changes, No Eye Pain, No Ear Pain, No Dysphasia, No Sinus Congestion, No Post Nasal Drip, No Sore Throat, No Other Pulmonary: No Dyspnea, No Cough, No Pleuritic Chest Pain, No Other Cardiovascular: No: Chest Pain, Palpitations, Orthopnea, Paroxysmal Noc. Dyspnea, Edema, Lt Headedness, Other Objective-Cardiology Exam Last Set of Vital Signs Vital Signs 06/26/21 06/26/21 06/26/21 07:58 08:57 09:59 Temp 37.1 Pulse 70 Resp 16 B/P (MAP) 117/59 (78) Pulse Ox 28 O2 Delivery Nasal Cannula O2 Flow Rate 1.50 FiO2 94 General: Alert, Oriented X3, Cooperative HEENT: Atraumatic, PERRLA Neck: Supple, No JVD, No Thyromegaly Lungs: Clear to Auscultation, Normal Air Movement Heart: Regular Rate, Normal S1, Normal S2, No Murmurs Abdomen: Normal Bowel Sounds, Soft, No Tenderness, No Hepatosplenomegaly, No Masses Extremities: No Edema Skin: No Rashes Neuro: Normal Speech, Sensation Intact Psych/Mental Status: Mental Status NL, Mood NL A/P-Cardiology Admission Diagnosis s/p Acute respiratory failure pneumonia CAD Assessment/Plan Status post acute respiratory insufficiency, hypoxemia, improved, feeling better. Pneumonia, receiving cefepime. Managed by primary care Anemia, worsening H&H, I will repeat CBC and CMP in the morning, followed and managed by primary care physician Transient orthostatic hypotension after exercise, blood pressure is elevated today, I am hesitant to increase her blood pressure medication due to the orthostatic dizziness and hypotension. Continue to monitor blood pressure s/p R TKR, continue with PT/OT Coronary artery disease with history of stent to LAD. Underwent cardiac catheterization in July 2017 in [place] revealing patent stent with nonobstructive disease. Continue to monitor. 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 Most recent 2D Echo 10/12/18 revealing mechanical prothesis present in aortic valve. Peak gradient across prosthetic valve is 26 mmHg, mean gradient 13mmHg, calculated valve area 2.41 cm squared. Mild AR. there is perivalvular regurg, Mod TR, Repeat 2D echo was done on June 20, 2021 showing moderate to severe LVH with normal systolic function, significant deterioration in the aortic valve with a peak gradient of 91 mmHg, valve area 1.4 cm. Mild mitral valve stenosis, pulmonary hypertension with PA pressure 50 to 55 mmHg Patient will need close monitoring and she probably will need another TAVR in the near future Paroxysmal atrial fibrillation, currently on Xarelto, Coreg and diltiazem. Continue to monitor Anemia, continue to monitor H/H. I will d/c ASA HTP- 2D Echo done June 2021 with PA 50-55mmHg. Mild bilateral carotid stenosis, history of syncope. Last ultrasound was done in July 2018, continue to monitor. Sick sinus syndrome, history of permanent pacemaker. Continue to monitor. Hyperlipidemia, monitored as outpatient. Hypothyroidism, patient is maintained on amiodarone,continue to monitor. EDY GOOD MD Jun 26, 2021 10:38
--- NOTE | 2021-06-26 12:03 | Occupational Ther Daily Note ---
OT Current Status-Daily Note Subjective Pt with better command following this date. Appearance Left sitting in chair, all needs within reach. RN informed. Mental Status/Objective Patient Orientation: Person, Confused Attachments: IV, Oxygen ADL-Treatment Therapy Code Descriptions/Definitions Functional [place] Measure: 0=Not Assessed/NA 4=Minimal Assistance 1=Total Assistance 5=Supervision or Setup 2=Maximal Assistance 6=Modified [place] 3=Moderate Assistance 7=Complete IndependenceSCALE: Activities may be completed with or without assistive devices. 4-Mirysbqyac-anhhfig completes the activity by him/herself with no assistance from a helper. 5-Set-up or Clean-up Assistance-helper sets up or cleans up; patient completes activity. [place] assists only prior to or following the activity. 4-Supervision or Touching Assistance-helper provides verbal cues and/or touching/steadying and/or contact guard assistance as patient completes activity. Assistance may be provided throughout the activity or intermittently. 3-Partial/Moderate Assistance-helper does LESS THAN HALF the effort. [place] lifts, holds or supports trunk or limbs, but provides less than half the effort. 2-Substantial/Maximal Assistance-helper does MORE THAN HALF the effort. [place] lifts or holds trunk or limbs and provides more than half the effort. 9-Dtskryfjs-uusvxn does ALL the effort. Patient does none of the effort to complete the activity. Or, the assistance of 2 or more helpers is required for the patient to complete the activity. If activity was not attempted, code reason: 7-Patient Refused. 9-Not Applicable-not attempted and the patient did not perform the activity before the current illness, exacerbation or injury. 10-Not Attempted due to Environmental Limitations-(lack of equipment, weather restraints, etc.). 88-Not Attempted due to Medical Conditions or Safety Concerns. Shower/Bathe Self (QC): 3 Upper Body Dressing (QC): 4 Lower Body Dressing (QC): 4 On/Off Footwear: 3 Toileting Hygiene (QC): 3 Toilet Transfer (QC): 4 Shower performed; majority completed in sitting. R knee c/d/I post shower. When standing, Pt attempts to reach for things outside of the shower. Cues needed for safety. Often, pt asking where her washcloth went despite holding it in her hand. Assist for thoroughness to wash buttocks/marisol area following bowel incontinence. Cue needed to initiate washing LB. She sat on bench to dress. Assist to initiate shahbaz hose over feet, pt able to pull up to knees. She bent forward to thread LE's into brief, Close sba-cga as she stood to manage up to waist. Pt with improved command following this date but still demonstrates significant cognitive deficits during adls. Very poor safety resulting in high fall risk. Education OT Patient Education: Correct positioning, Energy conservation, Modified ADL techniques, Progress toward Goal/Update tx plan, Purpose of tx/functional activities, Reviewed precautions, Safety issues Teaching Recipient: Patient Teaching Methods: Demonstration, Discussion Response to Teaching: Reinforcement Needed OT Short Term Goals Short Term Goals Time Frame: Jul 03, 2021 Toileting hygiene: 5 Shower/bathe self: 4 Lower body dressin Putting on/taking off footwear: 4 OT [employer] Project Manager Goals [employer] Project Manager Goals Time Frame: Jul 17, 2021 Eating (QC): 6 Oral Hygiene (QC): 6 Toileting Hygiene (QC): 6 Shower/Bathe Self (QC): 5 Upper Body Dressing (QC): 6 Lower Body Dressing (QC): 6 On/Off Footwear (QC): 6 Additional Goals: 1-Demonstrate ADL Tasks, 2-Verbalize Understanding, 3-Im proveStrength/Gilda 1=Demonstrate adherence to instructed precautions during ADL tasks. 2=Patient will verbalize/demonstrate understanding of assistive devices/modifications for ADL. 3=Patient will improve strength/tolerance for activity to enable patient to perform ADL's. OT Education/Plan Problem List/Assessment Assessment: Decreased Activ Tolerance, Decreased Safety Aware, Decreased UE Strength, Impaired Cognition, Impaired Funct Balance, Impaired I ADL's, Impaired Self-Care Skills Discharge Recommendations Plan/Recommendations: Continue POC Treatment Plan/Plan of Care Treatment,Training & Education: Yes Patient would benefit from OT for education, treatment and training to promote independence in ADL's, mobility, safety and/or upper extremity function for ADL's. Plan of Care: ADL Retraining, Functional Mobility, Group Exercise/Act as Ind, UE Funct Exercise/Act Treatment Duration: Jul 17, 2021 Frequency: At least 5 of 7 days/Wk (IRF) Estimated Hrs Per Day: 1.5 hours per day Rehab Potential: Fair Time/GCodes Start Time: 10:40 Stop Time: 11:40 Total Time Billed (hr/min): 60 Billed Treatment Time 1 visit ADL x4 Savannah Franco OT Jun 26, 2021 12:03
--- NOTE | 2021-06-26 13:15 | PM&R Progress Note ---
Subjective HPI/CC On Admission Date Seen by Provider: Jun 26, 2021 Time Seen by Provider: 13:00 Subjective/Events-last exam 06/26/21: Weaning down O2 to 1.5L/min Venofer tolerated Dr Dixon ordered labs for tomorrow BM+ Wants to go home prematurely 06/25/2021: Patient doing really well Wants to go home desperately Had a syncopal episode while in physical therapy Iron infusion indicated Discontinued cefepime Omnicef started Confused at times Hemoglobin 7.9 Review of Systems General: Fatigue Pulmonary: Dyspnea, Cough Objective Exam Vital Signs Vital Signs Date Time Temp Pulse Resp B/P (MAP) Pulse Ox O2 Delivery O2 Flow Rate FiO2 06/26/21 20:00 93 Nasal Cannula 1.50 06/26/21 19:22 36.7 82 20 159/69 (99) 06/26/21 08:57 94 Capillary Refill : General Appearance: No Apparent Distress, WD/WN, Chronically ill HEENT: PERRL/EOMI, Normal ENT Inspection, Pharynx Normal Neck: Full Range of Motion, Normal Inspection, Non Tender, Supple, Carotid Bruit Respiratory: Chest Non Tender, Normal Breath Sounds, No Accessory Muscle Use, No Respiratory Distress, Crackles, Decreased Breath Sounds Cardiovascular: Regular Rate, Rhythm, No Edema, No Gallop, No JVD, No Murmur, Normal Peripheral Pulses Gastrointestinal: Normal Bowel Sounds, No Organomegaly, No Pulsatile Mass, Non Tender, Soft Back: Normal Inspection, No CVA Tenderness, No Vertebral Tenderness Extremity: Normal Capillary Refill, Normal Inspection, Normal Range of Motion (excep right leg), Non Tender, No Calf Tenderness, No Pedal Edema Neurologic/Psychiatric: Alert, Oriented x3, No Motor/Sensory Deficits, Normal Mood/Affect Skin: Normal Color, Warm/Dry Lymphatic: No Adenopathy Results/Procedures Lab Patient resulted labs reviewed. FIM Transfers Therapy Code Descriptions/Definitions Functional [place] Measure: 0=Not Assessed/NA 4=Minimal Assistance 1=Total Assistance 5=Supervision or Setup 2=Maximal Assistance 6=Modified [place] 3=Moderate Assistance 7=Complete IndependenceSCALE: Activities may be completed with or without assistive devices. 1-Hofyqljsxs-afjfcsx completes the activity by him/herself with no assistance from a helper. 5-Set-up or Clean-up Assistance-helper sets up or cleans up; patient completes activity. [place] assists only prior to or following the activity. 4-Supervision or Touching Assistance-helper provides verbal cues and/or touching/steadying and/or contact guard assistance as patient completes activity. Assistance may be provided throughout the activity or intermittently. 3-Partial/Moderate Assistance-helper does LESS THAN HALF the effort. [place] lifts, holds or supports trunk or limbs, but provides less than half the effort. 2-Substantial/Maximal Assistance-helper does MORE THAN HALF the effort. [place] lifts or holds trunk or limbs and provides more than half the effort. 3-Lixmmhiva-lervlb does ALL the effort. Patient does none of the effort to complete the activity. Or, the assistance of 2 or more helpers is required for the patient to complete the activity. If activity was not attempted, code reason: 7-Patient Refused. 9-Not Applicable-not attempted and the patient did not perform the activity before the current illness, exacerbation or injury. 10-Not Attempted due to Environmental Limitations-(lack of equipment, weather restraints, etc.). 88-Not Attempted due to Medical Conditions or Safety Concerns. Roll Left to Right (QC): 6 Sit to Lying (QC): 5 Sit to Stand (QC): 5 Chair/Ozg-qi-Fncts Xfer(QC): 4 Car Transfer (QC): 3 Gait Training Does the Patient Walk?: Yes Distance: 120', 70', 50' Walk 10 feet (QC): 5 Walk 50 ft with 2 Turns(QC): 5 Walk 150 ft (QC): 4 Walking 10ft/uneven surface-QC: 4 Gait Persons Needed: 1 Gait Assistive Device: FWW Wheelchair Training Does the Pt Use a Wheelchair?: Yes Distance: 50 Wheel 50 ft with 2 turns (QC): 4 Wheel 150 ft (QC): 88 Type of Wheelchair: Manual Stair Training #of Steps: 0 1 Step (curb) (QC): 88 4 Steps (QC): 88 12 Steps (QC): 88 Balance Picking up an Object (QC): 88 ADL-Treatment Eating (QC): 5 (set up with lunch) Oral Hygiene (QC): 5 (per clinical judgment.) Shower/Bathe Self (QC): 3 Upper Body Dressing (QC): 4 Lower Body Dressing (QC): 4 On/Off Footwear (QC): 3 Toileting Hygiene (QC): 3 Toilet Transfer (QC): 4 Assessment/Plan Assessment and Plan Assess & Plan/Chief Complaint Assessment: Status post acute respiratory distress on 06/20/2021 requiring ICU transfer PNA on CXR 06/20/2021 and PCT elevated but negative the day before with CXR and PCT normal Sepsis Elevated BNP acute on chronic CHF Pacemaker Previous TVAR for aortic stenosis and current echo report severe aortic stenosis again may need repeat procedure AF OAC disrupted due to ortho surgery so required CT angiogram to r/o PE which was negative for PE Dementia? 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 Dixon 06/23/2021: Ready for rehab 06/24/21: Confusion monitoring Rehab protocol 06/25/2021: Monitor confusion Iron infusion 06/26/21: Venofer Monitor confusion Wean O2 (1) Status post right knee replacement (2) Acute respiratory failure with hypoxia Status: Acute (3) Paroxysmal A-fib Status: Chronic (4) HTN (hypertension) Status: Chronic (5) Hypothyroidism Status: Chronic (6) Hypertension Status: Acute DAYA VILLEGAS DO Jun 26, 2021 13:15
--- NOTE | 2021-06-26 14:22 | Therapy Group Daily Note ---
Therapy Daily Group Note Patient Education Topic Home Safety, Fall Prevention, Home Safety, Exercises Exercises LE Seated Exercise, ROM, UE Exercise Session Ratio (pt:therapist): 3:1 Goal of Session: Education on ARU Expectations, Home Safety Strategies, UE/LE Strengthing Goal Met for this Session: Yes Pt Benefit of Group: Contributions to Others, F/U Use of Strategies @Home, Increased Functional Safety, Increased Functional Strength, Recognition of Peers, Socialization Other/Notes Patient in recliner pre tx, transferred to and transported to the common area of rehab for group therapy. Each patient had to introduce themselves and answer a question involving memory and critical thinking. Patients then participate in a group discussion, led by therapists about home safety, balance, safety strategies. Each patient also had to direct the others to do an exercise, which they had on a card in hand. When done, patient is transported back to room and transfers to bed with nurse call, phone, tray, all needs met. Start Time: 13:00 Stop Time: 14:00 Total Billed Treatment Time: 60 Total Billed Treatment 1 visit GRP SABRINA VALERA PT Jun 26, 2021 14:22
[2021-06-26 19:22] VITALS: BP 159/69
[2021-06-27 06:31] LABS: HEMATOCRIT 27 % (35-52); HEMOGLOBIN 8.2 g/dL (11.5-16.0); MEAN CORPUSCULAR HEMOGLOBIN 30 pg (25-34); MEAN CORPUSCULAR HGB CONC 31 g/dL (32-36); MEAN CORPUSCULAR VOLUME 97 fL (80-99); MEAN PLATELET VOLUME 9.3 fL (9.0-12.2); PLATELET COUNT 396 10^3/uL (130-400); WHITE BLOOD COUNT 9.7 10^3/uL (4.3-11.0)
[2021-06-27 06:37] LABS: POTASSIUM 4.3 MMOL/L (3.6-5.0)
[2021-06-27 06:38] LABS: CALCIUM 9.2 MG/DL (8.5-10.1)
[2021-06-27 06:42] LABS: CREATININE SERUM 0.81 MG/DL (0.60-1.30)
[2021-06-27] MEDS: LEVOTHYROXINE 75 MCG (LEVOTHROID) TABLET PO SCH (06:57)
[2021-06-27 07:30] VITALS: BP 170/72
[2021-06-27] MEDS: oxyCODONE/APAP 5/325MG (PERCOCET 5) TABLET PO PRN ×2 (07:58→13:43)
--- NOTE | 2021-06-27 08:24 | Physical Therapy Daily Note ---
PT Daily Note-Current Subjective States that her knee is really hurting her. Pain Numeric Pain Scale: 10-Worst Possible Pain Location: Right Location Body Site: Knee Transfers SCALE: Activities may be completed with or without assistive devices. 4-Iaxebpbcei-xexmzpe completes the activity by him/herself with no assistance from a helper. 5-Set-up or Clean-up Assistance-helper sets up or cleans up; patient completes activity. [place] assists only prior to or following the activity. 4-Supervision or Touching Assistance-helper provides verbal cues and/or touching/steadying and/or contact guard assistance as patient completes activity. Assistance may be provided throughout the activity or intermittently. 3-Partial/Moderate Assistance-helper does LESS THAN HALF the effort. [place] lifts, holds or supports trunk or limbs, but provides less than half the effort. 2-Substantial/Maximal Assistance-helper does MORE THAN HALF the effort. [place] lifts or holds trunk or limbs and provides more than half the effort. 2-Wnbnqtmoe-hvsjxa does ALL the effort. Patient does none of the effort to complete the activity. Or, the assistance of 2 or more helpers is required for the patient to complete the activity. If activity was not attempted, code reason: 7-Patient Refused. 9-Not Applicable-not attempted and the patient did not perform the activity before the current illness, exacerbation or injury. 10-Not Attempted due to Environmental Limitations-(lack of equipment, weather restraints, etc.). 88-Not Attempted due to Medical Conditions or Safety Concerns. Sit to Stand (QC): 4 Chair/Fkl-xi-Tjgul Xfer(QC): 4 Weight Bearing Right Lower Extremity: Right Weight Bearing/Tolerated Gait Training Distance: 50' x 2 Gait Persons Needed: 1 Gait Assistive Device: FWW Exercises Seated Therapy Exercises: LE Protocol Seated Reps: 10 NuStep Minutes: 11 NuStep Workload: 4 Assessment Current Status: Good Progress Patient had increased pain in the knee today. PT Short Term Goals Short Term Goals Time Frame: Jul 07, 2021 Roll Left & Right: 5 Sit to lyin Lying to sitting on side of be: 5 Sit to stand: 5 Chair/vck-ub-fzcyk transfer: 5 Toilet transfer: 5 Car transfer: 5 Walk 10 feet: 5 Walk 50 feet with two turns: 5 Walk 150 feet: 5 Walking 10ft on uneven surface: 5 1 step (curb): 4 4 steps: 4 12 steps: 4 Picking up objects: 4 Does pt use a wc or scooter: Yes Wheel 50ft w/2 turns: 6 Wheel 150 feet: 6 Type: Manual PT Custodial Goals Horse Identifier Goals PT Custodial Goals Time Frame: Jul 21, 2021 Roll Left & Right (QC): 6 Sit to Lying (QC): 6 Lying-Sitting on Side/Bed(QC): 6 Sit to Stand (QC): 6 Chair/Lrl-zy-Ksejn Xfer(QC): 6 Toilet Transfer (QC): 6 Car Transfer (QC): 6 Does the Patient Walk: Yes Walk 10 feet (QC): 6 Walk 50ft with 2 Turns (QC): 6 Walk 150 ft (QC): 6 Walking 10ft on Uneven Surface: 6 1 Step (curb) (QC): 5 4 Steps (QC): 5 12 Steps (QC): 5 Picking up an Object (QC): 6 Does the Pt use WC or Scooter?: Yes Wheel 50 feet with 2 turns (QC: 6 Type: Manual Wheel 150 feet: 6 Type: Manual PT Plan Treatment/Plan Treatment Plan: Continue Plan of Care Treatment Plan: Bed Mobility, Education, Functional Activity Gilda, Functional Strength, Group Therapy, Gait, Safety, Therapeutic Exercise, Transfers Treatment Duration: Aug 05, 2021 Frequency: At least 5 of 7 days/Wk (IRF) Estimated Hrs Per Day: 1.5 hours per day Patient and/or Family Agrees t: Yes Time/GCodes Time In: 730 Time Out: 840 Total Billed Treatment Time: 50 Total Billed Treatment 1, EX x 20, GTx15, FA x 15 ALTON GIRARD PT Jun 27, 2021 08:24
[2021-06-27] MEDS: IRON SUCROSE 200 MG/10 ML (VENOFER) VIAL IV SCH (08:39)
[2021-06-27] MEDS: MULTIVIT W/MINERALS TAB (THERAGRAN M) PO SCH (08:47)
[2021-06-27] MEDS: KCL 10 MEQ TAB (MICRO K) PO SCH (08:47)
[2021-06-27] MEDS: RIVAROXABAN 20 MG TABLET (XARELTO) PO SCH (08:47)
[2021-06-27] MEDS: FAMOTIDINE 20 MG (PEPCID) TABLET PO SCH (08:47)
[2021-06-27] MEDS: CEFDINIR 300 MG (OMNICEF) CAP PO SCH ×2 (08:47→20:17)
[2021-06-27] MEDS: GABAPENTIN 100 MG (NEURONTIN) CAP PO SCH ×2 (08:47→20:16)
[2021-06-27] MEDS: SENNA W/DOCUSATE (SENOKOT S) TABLET PO SCH ×4 (08:51→19:12)
[2021-06-27] MEDS: polyethylene glycoL POWDER 17 GM (MIRALAX) PACK PO SCH ×4 (08:51→19:13)
--- NOTE | 2021-06-27 11:44 | PM&R Progress Note ---
Subjective HPI/CC On Admission Date Seen by Provider: Jun 27, 2021 Time Seen by Provider: 12:00 Subjective/Events-last exam 06/27/2021: Patient doing much better Remains on 1.5 L of oxygen Probiotic request due to loose stools IV iron infusion tolerated Vitamin B12 level is okay Walking well 06/26/21: Weaning down O2 to 1.5L/min Venofer tolerated Dr Dixon ordered labs for tomorrow BM+ Wants to go home prematurely 06/25/2021: Patient doing really well Wants to go home desperately Had a syncopal episode while in physical therapy Iron infusion indicated Discontinued cefepime Omnicef started Confused at times Hemoglobin 7.9 Review of Systems General: Fatigue, Malaise Musculoskeletal: leg pain Objective Exam Vital Signs Vital Signs Date Time Temp Pulse Resp B/P (MAP) Pulse Ox O2 Delivery O2 Flow Rate FiO2 06/27/21 20:55 Nasal Cannula 1.50 06/27/21 20:20 36.2 60 16 170/70 (103) 94 06/26/21 08:57 94 Capillary Refill : General Appearance: No Apparent Distress, WD/WN, Chronically ill HEENT: PERRL/EOMI, Normal ENT Inspection, Pharynx Normal Neck: Full Range of Motion, Normal Inspection, Non Tender, Supple, Carotid Bruit Respiratory: Chest Non Tender, Normal Breath Sounds, No Accessory Muscle Use, No Respiratory Distress, Crackles, Decreased Breath Sounds Cardiovascular: Regular Rate, Rhythm, No Edema, No Gallop, No JVD, No Murmur, Normal Peripheral Pulses Gastrointestinal: Normal Bowel Sounds, No Organomegaly, No Pulsatile Mass, Non Tender, Soft Back: Normal Inspection, No CVA Tenderness, No Vertebral Tenderness Extremity: Normal Capillary Refill, Normal Inspection, Normal Range of Motion (excep right leg), Non Tender, No Calf Tenderness, No Pedal Edema Neurologic/Psychiatric: Alert, Oriented x3, No Motor/Sensory Deficits, Normal Mood/Affect Skin: Normal Color, Warm/Dry Lymphatic: No Adenopathy Results/Procedures Lab Patient resulted labs reviewed. FIM Transfers Therapy Code Descriptions/Definitions Functional [place] Measure: 0=Not Assessed/NA 4=Minimal Assistance 1=Total Assistance 5=Supervision or Setup 2=Maximal Assistance 6=Modified [place] 3=Moderate Assistance 7=Complete IndependenceSCALE: Activities may be completed with or without assistive devices. 3-Sswbzeuiei-usmghps completes the activity by him/herself with no assistance from a helper. 5-Set-up or Clean-up Assistance-helper sets up or cleans up; patient completes activity. [place] assists only prior to or following the activity. 4-Supervision or Touching Assistance-helper provides verbal cues and/or touching/steadying and/or contact guard assistance as patient completes activity. Assistance may be provided throughout the activity or intermittently. 3-Partial/Moderate Assistance-helper does LESS THAN HALF the effort. [place] lifts, holds or supports trunk or limbs, but provides less than half the effort. 2-Substantial/Maximal Assistance-helper does MORE THAN HALF the effort. [place] lifts or holds trunk or limbs and provides more than half the effort. 5-Iutibsfmp-ngjtgs does ALL the effort. Patient does none of the effort to complete the activity. Or, the assistance of 2 or more helpers is required for the patient to complete the activity. If activity was not attempted, code reason: 7-Patient Refused. 9-Not Applicable-not attempted and the patient did not perform the activity before the current illness, exacerbation or injury. 10-Not Attempted due to Environmental Limitations-(lack of equipment, weather restraints, etc.). 88-Not Attempted due to Medical Conditions or Safety Concerns. Roll Left to Right (QC): 6 Sit to Lying (QC): 5 Sit to Stand (QC): 4 Chair/Oey-ba-Mirhe Xfer(QC): 4 Car Transfer (QC): 3 Gait Training Does the Patient Walk?: Yes Distance: 50' x 2 Walk 10 feet (QC): 5 Walk 50 ft with 2 Turns(QC): 5 Walk 150 ft (QC): 4 Walking 10ft/uneven surface-QC: 4 Gait Persons Needed: 1 Gait Assistive Device: FWW Wheelchair Training Does the Pt Use a Wheelchair?: Yes Distance: 50 Wheel 50 ft with 2 turns (QC): 4 Wheel 150 ft (QC): 88 Type of Wheelchair: Manual Stair Training #of Steps: 0 1 Step (curb) (QC): 88 4 Steps (QC): 88 12 Steps (QC): 88 Balance Picking up an Object (QC): 88 ADL-Treatment Eating (QC): 5 (set up with lunch) Oral Hygiene (QC): 5 (per clinical judgment.) Shower/Bathe Self (QC): 3 Upper Body Dressing (QC): 4 Lower Body Dressing (QC): 4 On/Off Footwear (QC): 3 Toileting Hygiene (QC): 3 Toilet Transfer (QC): 4 Assessment/Plan Assessment and Plan Assess & Plan/Chief Complaint Assessment: Status post acute respiratory distress on 06/20/2021 requiring ICU transfer PNA on CXR 06/20/2021 and PCT elevated but negative the day before with CXR and PCT normal Sepsis Elevated BNP acute on chronic CHF Pacemaker Previous TVAR for aortic stenosis and current echo report severe aortic stenosis again may need repeat procedure AF OAC disrupted due to ortho surgery so required CT angiogram to r/o PE which was negative for PE Dementia? 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 Dixon 06/23/2021: Ready for rehab 06/24/21: Confusion monitoring Rehab protocol 06/25/2021: Monitor confusion Iron infusion 06/26/21: Venofer Monitor confusion Wean O2 06/27/2021: Supportive care (1) Status post right knee replacement (2) Acute respiratory failure with hypoxia Status: Acute (3) Paroxysmal A-fib Status: Chronic (4) HTN (hypertension) Status: Chronic (5) Hypothyroidism Status: Chronic (6) Hypertension Status: Acute DAYA VILLEGAS DO Jun 27, 2021 11:44
[2021-06-27] MEDS: LACTOBACILLUS ACIDOPHILUS (PROBIOTIC) CAPSULE PO SCH ×2 (13:43→18:05)
[2021-06-27 20:20] VITALS: BP 170/70
[2021-06-28] MEDS: LEVOTHYROXINE 75 MCG (LEVOTHROID) TABLET PO SCH (05:31)
[2021-06-28] MEDS: MULTIVIT W/MINERALS TAB (THERAGRAN M) PO SCH (05:31)
[2021-06-28] MEDS: ONDANSETRON 4 MG (ZOFRAN) ORAL DISSOLVE TAB PO PRN (06:14)
[2021-06-28 07:31] VITALS: BP 150/67
[2021-06-28] MEDS: SENNA W/DOCUSATE (SENOKOT S) TABLET PO SCH ×4 (08:18→19:36)
[2021-06-28] MEDS: polyethylene glycoL POWDER 17 GM (MIRALAX) PACK PO SCH ×4 (08:18→19:35)
[2021-06-28] MEDS: CEFDINIR 300 MG (OMNICEF) CAP PO SCH ×2 (08:30→20:08)
[2021-06-28] MEDS: FAMOTIDINE 20 MG (PEPCID) TABLET PO SCH (08:31)
[2021-06-28] MEDS: GABAPENTIN 100 MG (NEURONTIN) CAP PO SCH ×2 (08:31→20:08)
[2021-06-28] MEDS: oxyCODONE/APAP 5/325MG (PERCOCET 5) TABLET PO PRN (08:31)
[2021-06-28] MEDS: LACTOBACILLUS ACIDOPHILUS (PROBIOTIC) CAPSULE PO SCH ×3 (08:31→18:39)
[2021-06-28] MEDS: RIVAROXABAN 20 MG TABLET (XARELTO) PO SCH (08:31)
[2021-06-28] MEDS: KCL 10 MEQ TAB (MICRO K) PO SCH (08:31)
--- NOTE | 2021-06-28 11:39 | PM&R Progress Note ---
Subjective HPI/CC On Admission Date Seen by Provider: Jun 28, 2021 Time Seen by Provider: 11:40 Subjective/Events-last exam 06/28/2021: Patient doing well Left arm is swollen from IV site K pad will be placed Completing on antibiotics 06/27/2021: Patient doing much better Remains on 1.5 L of oxygen Probiotic request due to loose stools IV iron infusion tolerated Vitamin B12 level is okay Walking well 06/26/21: Weaning down O2 to 1.5L/min Venofer tolerated Dr Dixon ordered labs for tomorrow BM+ Wants to go home prematurely 06/25/2021: Patient doing really well Wants to go home desperately Had a syncopal episode while in physical therapy Iron infusion indicated Discontinued cefepime Omnicef started Confused at times Hemoglobin 7.9 Review of Systems General: Fatigue Neurological: Confusion Objective Exam Vital Signs Vital Signs Date Time Temp Pulse Resp B/P (MAP) Pulse Ox O2 Delivery O2 Flow Rate FiO2 06/28/21 20:13 Nasal Cannula 1.50 06/28/21 19:06 37.4 77 14 130/60 (83) 94 06/26/21 08:57 94 Capillary Refill : General Appearance: No Apparent Distress, WD/WN, Chronically ill HEENT: PERRL/EOMI, Normal ENT Inspection, Pharynx Normal Neck: Full Range of Motion, Normal Inspection, Non Tender, Supple, Carotid Bruit Respiratory: Chest Non Tender, Normal Breath Sounds, No Accessory Muscle Use, No Respiratory Distress, Crackles, Decreased Breath Sounds Cardiovascular: Regular Rate, Rhythm, No Edema, No Gallop, No JVD, No Murmur, Normal Peripheral Pulses Gastrointestinal: Normal Bowel Sounds, No Organomegaly, No Pulsatile Mass, Non Tender, Soft Back: Normal Inspection, No CVA Tenderness, No Vertebral Tenderness Extremity: Normal Capillary Refill, Normal Inspection, Normal Range of Motion (excep right leg), Non Tender, No Calf Tenderness, No Pedal Edema Neurologic/Psychiatric: Alert, Oriented x3, No Motor/Sensory Deficits, Normal Mood/Affect Skin: Normal Color, Warm/Dry Lymphatic: No Adenopathy Results/Procedures Lab Patient resulted labs reviewed. FIM Transfers Therapy Code Descriptions/Definitions Functional [place] Measure: 0=Not Assessed/NA 4=Minimal Assistance 1=Total Assistance 5=Supervision or Setup 2=Maximal Assistance 6=Modified [place] 3=Moderate Assistance 7=Complete IndependenceSCALE: Activities may be completed with or without assistive devices. 2-Tqckehgsgy-qhqmhwz completes the activity by him/herself with no assistance from a helper. 5-Set-up or Clean-up Assistance-helper sets up or cleans up; patient completes activity. [place] assists only prior to or following the activity. 4-Supervision or Touching Assistance-helper provides verbal cues and/or touching/steadying and/or contact guard assistance as patient completes activi ty. Assistance may be provided throughout the activity or intermittently. 3-Partial/Moderate Assistance-helper does LESS THAN HALF the effort. [place] lifts, holds or supports trunk or limbs, but provides less than half the effort. 2-Substantial/Maximal Assistance-helper does MORE THAN HALF the effort. [place] lifts or holds trunk or limbs and provides more than half the effort. 5-Ldhuwyxml-nbvhau does ALL the effort. Patient does none of the effort to complete the activity. Or, the assistance of 2 or more helpers is required for the patient to complete the activity. If activity was not attempted, code reason: 7-Patient Refused. 9-Not Applicable-not attempted and the patient did not perform the activity before the current illness, exacerbation or injury. 10-Not Attempted due to Environmental Limitations-(lack of equipment, weather restraints, etc.). 88-Not Attempted due to Medical Conditions or Safety Concerns. Roll Left to Right (QC): 6 Sit to Lying (QC): 5 Sit to Stand (QC): 4 Chair/Dlf-dx-Zjdcz Xfer(QC): 4 Car Transfer (QC): 3 Gait Training Does the Patient Walk?: Yes Distance: 50' x 2 Walk 10 feet (QC): 5 Walk 50 ft with 2 Turns(QC): 5 Walk 150 ft (QC): 4 Walking 10ft/uneven surface-QC: 4 Gait Persons Needed: 1 Gait Assistive Device: FWW Wheelchair Training Does the Pt Use a Wheelchair?: Yes Distance: 50 Wheel 50 ft with 2 turns (QC): 4 Wheel 150 ft (QC): 88 Type of Wheelchair: Manual Stair Training #of Steps: 0 1 Step (curb) (QC): 88 4 Steps (QC): 88 12 Steps (QC): 88 Balance Picking up an Object (QC): 88 ADL-Treatment Eating (QC): 5 (set up with lunch) Oral Hygiene (QC): 5 (per clinical judgment.) Shower/Bathe Self (QC): 3 Upper Body Dressing (QC): 4 Lower Body Dressing (QC): 4 On/Off Footwear (QC): 3 Toileting Hygiene (QC): 3 Toilet Transfer (QC): 4 Assessment/Plan Assessment and Plan Assess & Plan/Chief Complaint Assessment: Status post acute respiratory distress on 06/20/2021 requiring ICU transfer PNA on CXR 06/20/2021 and PCT elevated but negative the day before with CXR and PCT normal Sepsis Elevated BNP acute on chronic CHF Pacemaker Previous TVAR for aortic stenosis and current echo report severe aortic stenosis again may need repeat procedure AF OAC disrupted due to ortho surgery so required CT angiogram to r/o PE which was negative for PE Dementia? 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 Dixon 06/23/2021: Ready for rehab 06/24/21: Confusion monitoring Rehab protocol 06/25/2021: Monitor confusion Iron infusion 06/26/21: Venofer Monitor confusion Wean O2 06/27/2021: Supportive care 06/28/2021: Supportive care (1) Status post right knee replacement (2) Acute respiratory failure with hypoxia Status: Acute (3) Paroxysmal A-fib Status: Chronic (4) HTN (hypertension) Status: Chronic (5) Hypothyroidism Status: Chronic (6) Hypertension Status: Acute DAYA VILLEGAS DO Jun 28, 2021 11:39
[2021-06-28 19:06] VITALS: BP 130/60
--- NOTE | 2021-06-29 05:36 | PM&R Progress Note ---
Subjective HPI/CC On Admission Date Seen by Provider: Jun 29, 2021 Time Seen by Provider: 09:00 Subjective/Events-last exam 06/29/2021: Patient doing really well Hemoglobin 8.2 Had a nosebleed today but not severe Ready for discharge when team agrees 06/28/2021: Patient doing well Left arm is swollen from IV site K pad will be placed Completing on antibiotics 06/27/2021: Patient doing much better Remains on 1.5 L of oxygen Probiotic request due to loose stools IV iron infusion tolerated Vitamin B12 level is okay Walking well 06/26/21: Weaning down O2 to 1.5L/min Venofer tolerated Dr Dixon ordered labs for tomorrow BM+ Wants to go home prematurely 06/25/2021: Patient doing really well Wants to go home desperately Had a syncopal episode while in physical therapy Iron infusion indicated Discontinued cefepime Omnicef started Confused at times Hemoglobin 7.9 Review of Systems General: Fatigue Musculoskeletal: leg pain Objective Exam Vital Signs Vital Signs Date Time Temp Pulse Resp B/P (MAP) Pulse Ox O2 Delivery O2 Flow Rate FiO2 06/30/21 00:13 37.1 72 95 06/29/21 20:32 Nasal Cannula 1.00 06/29/21 19:35 18 137/63 (87) 06/26/21 08:57 94 Capillary Refill : General Appearance: No Apparent Distress, WD/WN, Chronically ill HEENT: PERRL/EOMI, Normal ENT Inspection, Pharynx Normal Neck: Full Range of Motion, Normal Inspection, Non Tender, Supple, Carotid Bruit Respiratory: Chest Non Tender, Normal Breath Sounds, No Accessory Muscle Use, No Respiratory Distress, Crackles, Decreased Breath Sounds Cardiovascular: Regular Rate, Rhythm, No Edema, No Gallop, No JVD, No Murmur, Normal Peripheral Pulses Gastrointestinal: Normal Bowel Sounds, No Organomegaly, No Pulsatile Mass, Non Tender, Soft Back: Normal Inspection, No CVA Tenderness, No Vertebral Tenderness Extremity: Normal Capillary Refill, Normal Inspection, Normal Range of Motion (excep right leg), Non Tender, No Calf Tenderness, No Pedal Edema Neurologic/Psychiatric: Alert, Oriented x3, No Motor/Sensory Deficits, Normal Mood/Affect Skin: Normal Color, Warm/Dry Lymphatic: No Adenopathy Results/Procedures Lab Laboratory Tests 06/29/21 05:35 Patient resulted labs reviewed. FIM Transfers Therapy Code Descriptions/Definitions Functional [place] Measure: 0=Not Assessed/NA 4=Minimal Assistance 1=Total Assistance 5=Supervision or Setup 2=Maximal Assistance 6=Modified [place] 3=Moderate Assistance 7=Complete IndependenceSCALE: Activities may be completed with or without assistive devices. 2-Kqcuazewdu-bwyxkaw completes the activity by him/herself with no assistance from a helper. 5-Set-up or Clean-up Assistance-helper sets up or cleans up; patient completes activity. [place] assists only prior to or following the activity. 4-Supervision or Touching Assistance-helper provides verbal cues and/or touching/steadying and/or contact guard assistance as patient completes activity. Assistance may be provided throughout the activity or intermittently. 3-Partial/Moderate Assistance-helper does LESS THAN HALF the effort. [place] lifts, holds or supports trunk or limbs, but provides less than half the effort. 2-Substantial/Maximal Assistance-helper does MORE THAN HALF the effort. [place] lifts or holds trunk or limbs and provides more than half the effort. 1-Zjgwjdphj-zhhtry does ALL the effort. Patient does none of the effort to complete the activity. Or, the assistance of 2 or more helpers is required for the patient to complete the activity. If activity was not attempted, code reason: 7-Patient Refused. 9-Not Applicable-not attempted and the patient did not perform the activity before the current illness, exacerbation or injury. 10-Not Attempted due to Environmental Limitations-(lack of equipment, weather restraints, etc.). 88-Not Attempted due to Medical Conditions or Safety Concerns. Roll Left to Right (QC): 6 Sit to Lying (QC): 5 Sit to Stand (QC): 4 Chair/Rnq-rt-Btaxi Xfer(QC): 4 Car Transfer (QC): 3 Gait Training Does the Patient Walk?: Yes Distance: 50' x 2 Walk 10 feet (QC): 5 Walk 50 ft with 2 Turns(QC): 5 Walk 150 ft (QC): 4 Walking 10ft/uneven surface-QC: 4 Gait Persons Needed: 1 Gait Assistive Device: FWW Wheelchair Training Does the Pt Use a Wheelchair?: Yes Distance: 50 Wheel 50 ft with 2 turns (QC): 4 Wheel 150 ft (QC): 88 Type of Wheelchair: Manual Stair Training #of Steps: 0 1 Step (curb) (QC): 88 4 Steps (QC): 88 12 Steps (QC): 88 Balance Picking up an Object (QC): 88 ADL-Treatment Eating (QC): 5 (set up with lunch) Oral Hygiene (QC): 5 (per clinical judgment.) Shower/Bathe Self (QC): 3 Upper Body Dressing (QC): 4 Lower Body Dressing (QC): 4 On/Off Footwear (QC): 3 Toileting Hygiene (QC): 3 Toilet Transfer (QC): 4 Assessment/Plan Assessment and Plan Assess & Plan/Chief Complaint Assessment: Status post acute respiratory distress on 06/20/2021 requiring ICU transfer PNA on CXR 06/20/2021 and PCT elevated but negative the day before with CXR and PCT normal Sepsis Elevated BNP acute on chronic CHF Pacemaker Previous TVAR for aortic stenosis and current echo report severe aortic stenosis again may need repeat procedure AF OAC disrupted due to ortho surgery so required CT angiogram to r/o PE which was negative for PE Dementia? 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 Dixon 06/23/2021: Ready for rehab 06/24/21: Confusion monitoring Rehab protocol 06/25/2021: Monitor confusion Iron infusion 06/26/21: Venofer Monitor confusion Wean O2 06/27/2021: Supportive care 06/28/2021: Supportive care 06/29/2021: Discharge planning Complete antibiotics (1) Status post right knee replacement (2) Acute respiratory failure with hypoxia Status: Acute (3) Paroxysmal A-fib Status: Chronic (4) HTN (hypertension) Status: Chronic (5) Hypothyroidism Status: Chronic (6) Hypertension Status: Acute DAYA VILLEGAS DO Jun 29, 2021 05:36
[2021-06-29] MEDS: MULTIVIT W/MINERALS TAB (THERAGRAN M) PO SCH (06:04)
[2021-06-29] MEDS: LEVOTHYROXINE 75 MCG (LEVOTHROID) TABLET PO SCH (06:04)
[2021-06-29 06:25] LABS: ALBUMIN 3.2 GM/DL (3.2-4.5); POTASSIUM 4.5 MMOL/L (3.6-5.0)
[2021-06-29 06:26] LABS: CALCIUM 9.1 MG/DL (8.5-10.1)
[2021-06-29 06:28] LABS: TOTAL PROTEIN 6.2 GM/DL (6.4-8.2)
[2021-06-29 06:30] LABS: BILIRUBIN,TOTAL 0.7 MG/DL (0.1-1.0)
[2021-06-29 06:31] LABS: CREATININE SERUM 0.89 MG/DL (0.60-1.30)
[2021-06-29 06:34] LABS: BASOPHILS # (AUTO) 0.1 10^3/uL (0.0-0.1); BASOPHILS % (AUTO) 1 % (0-10); EOSINOPHILS # (AUTO) 0.3 10^3/uL (0.0-0.3); EOSINOPHILS % (AUTO) 3 % (0-10); HEMATOCRIT 27 % (35-52); HEMOGLOBIN 8.2 g/dL (11.5-16.0); LYMPHOCYTES # (AUTO) 1.5 10^3/uL (1.0-4.0); LYMPHOCYTES % (AUTO) 18 % (12-44); MEAN CORPUSCULAR HEMOGLOBIN 31 pg (25-34); MEAN CORPUSCULAR HGB CONC 30 g/dL (32-36); MEAN CORPUSCULAR VOLUME 101 fL (80-99); MEAN PLATELET VOLUME 9.5 fL (9.0-12.2); MONOCYTES # (AUTO) 0.9 10^3/uL (0.0-1.0); MONOCYTES % (AUTO) 11 % (0-12); NEUTROPHILS # (AUTO) 5.4 10^3/uL (1.8-7.8); NEUTROPHILS % (AUTO) 66 % (42-75); PLATELET COUNT 383 10^3/uL (130-400); WHITE BLOOD COUNT 8.3 10^3/uL (4.3-11.0)
[2021-06-29 07:43] VITALS: BP 160/64
[2021-06-29] MEDS: CEFDINIR 300 MG (OMNICEF) CAP PO SCH ×2 (07:57→20:29)
[2021-06-29] MEDS: LACTOBACILLUS ACIDOPHILUS (PROBIOTIC) CAPSULE PO SCH ×3 (07:57→17:04)
[2021-06-29] MEDS: GABAPENTIN 100 MG (NEURONTIN) CAP PO SCH ×2 (07:57→20:29)
[2021-06-29] MEDS: KCL 10 MEQ TAB (MICRO K) PO SCH (07:58)
[2021-06-29] MEDS: RIVAROXABAN 20 MG TABLET (XARELTO) PO SCH (07:58)
[2021-06-29] MEDS: IRON SUCROSE 200 MG/10 ML (VENOFER) VIAL IV SCH (07:58)
[2021-06-29] MEDS: FAMOTIDINE 20 MG (PEPCID) TABLET PO SCH (07:58)
--- NOTE | 2021-06-29 08:40 | Cardiology Progress Note ---
Subjective Date Seen by Provider: Jun 29, 2021 Time Seen by Provider: 08:36 Subjective/Events-last exam With PT, denies any chest pain or increased dyspnea. Review of Systems General: No Chills, No Night Sweats, No Fatigue, No Malaise, No Appetite, No Other HEENT: No Head Aches, No Visual Changes, No Eye Pain, No Ear Pain, No Dysphasia, No Sinus Congestion, No Post Nasal Drip, No Sore Throat, No Other Pulmonary: No Dyspnea, No Cough, No Pleuritic Chest Pain, No Other Cardiovascular: No: Chest Pain, Palpitations, Orthopnea, Paroxysmal Noc. Dyspnea, Edema, Lt Headedness, Other Objective-Cardiology Exam Last Set of Vital Signs Vital Signs 06/26/21 06/29/21 06/29/21 08:57 07:43 08:00 Temp 36.8 Pulse 84 Resp 16 B/P (MAP) 160/64 (96) Pulse Ox 93 O2 Delivery Nasal Cannula O2 Flow Rate 1.50 FiO2 94 General: Alert, Oriented X3, Cooperative HEENT: Atraumatic, PERRLA Neck: Supple, No JVD, No Thyromegaly Lungs: Clear to Auscultation, Normal Air Movement Heart: Regular Rate, Normal S1, Normal S2, No Murmurs Abdomen: Normal Bowel Sounds, Soft, No Tenderness, No Hepatosplenomegaly, No Masses Extremities: No Edema Skin: No Rashes Neuro: Normal Speech, Sensation Intact Psych/Mental Status: Mental Status NL, Mood NL Results Lab Laboratory Tests 06/29/21 05:35 A/P-Cardiology Admission Diagnosis s/p Acute respiratory failure pneumonia CAD Assessment/Plan Status post acute respiratory insufficiency, hypoxemia, improved, feeling better. Wean oxygen as tolerated. Pneumonia, receiving cefepime. Managed by primary care Anemia, stable and slowly improving. Continue to monitor H/H Transient orthostatic hypotension after exercise, blood pressure is elevated today, I am hesitant to increase her blood pressure medication due to the orthostatic dizziness and hypotension. Continue to monitor blood pressure s/p R TKR, continue with PT/OT Coronary artery disease with history of stent to LAD. Underwent cardiac catheterization in July 2017 in [place] revealing patent stent with nonobstr uctive disease. Continue to monitor. History of severe aortic valve stenosis, status post TAVR done September 06, 2017 in [place] with uneventful deployment of a 26 mm Medtronic Evolut Pro. Most recent 2D Echo 10/12/18 revealing mechanical prothesis present in aortic valve. Peak gradient across prosthetic valve is 26 mmHg, mean gradient 13mmHg, calculated valve area 2.41 cm squared. Mild AR. there is perivalvular regurg, Mod TR, Repeat 2D echo was done on June 20, 2021 showing moderate to severe LVH with normal systolic function, significant deterioration in the aortic valve with a peak gradient of 91 mmHg, valve area 1.4 cm. Mild mitral valve stenosis, pulmonary hypertension with PA pressure 50 to 55 mmHg Patient will need close monitoring and she probably will need another TAVR in the near future Paroxysmal atrial fibrillation, currently on Xarelto, Coreg and diltiazem. Continue to monitor Anemia, continue to monitor H/H. I will d/c ASA HTP- 2D Echo done June 2021 with PA 50-55mmHg. Mild bilateral carotid stenosis, history of syncope. Last ultrasound was done in July 2018, continue to monitor. Sick sinus syndrome, history of permanent pacemaker. Continue to monitor. Hyperlipidemia, monitored as outpatient. Hypothyroidism, patient is maintained on amiodarone,continue to monitor. Supervisory-Addendum Brief Supervisory Addendum Participated in pt care: history, MDM, physical Personally performed: exam, history, MDM Care discussed with: ANUM Results interpretation: Verified all documentation Notes: Patient was seen and evaluated with Kim, examination performed, management plan was discussed, agree with the current scribed note, I made few changes to the note using Italic font Patient was sitting in a chair, feeling better Not requiring oxygen Still have few crackles at the base of her lung We'll add Lasix 20 mg daily and continue on KCl 20 mEq daily, monitor renal function and electrolyte Continue to monitor blood pressure KIM SAAVEDRA Jun 29, 2021 08:40 EDY OGOD MD Jun 29, 2021 09:56
--- NOTE | 2021-06-29 08:49 | Physical Therapy Daily Note ---
PT Daily Note-Current Subjective Pt. in bed finishing breakfast, agrees to rx, wants to go to bthrm. No c/o pain . No c/o SOB Pain Numeric Pain Scale: 0-No Pain Location: No Pain Reported Appearance some minor nose bleeding, nursing alerted and pt. given lubricant and then tested on O2 sats with activity and now off O2 with sats at 93% consistently Mental Status Patient Orientation: Person, Place needs near constant reminders to stay on task, distracted easily Transfers SCALE: Activities may be completed with or without assistive devices. 9-Kjdcygcsmo-quyxpii completes the activity by him/herself with no assistance from a helper. 5-Set-up or Clean-up Assistance-helper sets up or cleans up; patient completes activity. [place] assists only prior to or following the activity. 4-Supervision or Touching Assistance-helper provides verbal cues and/or touching/steadying and/or contact guard assistance as patient completes activity. Assistance may be provided throughout the activity or intermittently. 3-Partial/Moderate Assistance-helper does LESS THAN HALF the effort. [place] lifts, holds or supports trunk or limbs, but provides less than half the effort. 2-Substantial/Maximal Assistance-helper does MORE THAN HALF the effort. [place] lifts or holds trunk or limbs and provides more than half the effort. 3-Lentmsqkl-unkqjf does ALL the effort. Patient does none of the effort to complete the activity. Or, the assistance of 2 or more helpers is required for the patient to complete the activity. If activity was not attempted, code reason: 7-Patient Refused. 9-Not Applicable-not attempted and the patient did not perform the activity before the current illness, exacerbation or injury. 10-Not Attempted due to Environmental Limitations-(lack of equipment, weather restraints, etc.). 88-Not Attempted due to Medical Conditions or Safety Concerns. Roll Left & Right (QC): 6 Lying to Sitting/Side of Bed(Q: 6 Sit to Stand (QC): 6 Chair/Frk-dh-Luzjc Xfer(QC): 6 Toilet Transfer (QC): 6 Car Transfer (QC): 6 Weight Bearing Right Lower Extremity: Right Weight Bearing/Tolerated Gait Training Does the Patient Walk?: Yes Walk 10 feet (QC): 5 Walk 50 ft with 2 Turns(QC): 5 Walk 150 ft (QC): 5 Gait Persons Needed: 1 Stair Training Stair Training: Handrails/: 2 handrails #of Steps: 4 4 Steps (QC): 4 Stairs: Pattern: Step to instruction for sequence Exercises Supine Ex: Ankle pumps, Quad Set, Rolling, Heel Slides, Straight leg raise Supine Reps: 10 Seated Therapy Exercises: Long arc quads Seated Reps: 8 NuStep Minutes: 10 NuStep Workload: 4 Treatments toileted and changed pants with min assist for clothes and cleaning after BM Assessment Current Status: Good Progress PT Short Term Goals Short Term Goals Time Frame: Jul 07, 2021 Roll Left & Right: 5 Sit to lyin Lying to sitting on side of be: 5 Sit to stand: 5 Chair/ftl-jd-jjtvg transfer: 5 Toilet transfer: 5 Car transfer: 5 Walk 10 feet: 5 Walk 50 feet with two turns: 5 Walk 150 feet: 5 Walking 10ft on uneven surface: 5 1 step (curb): 4 4 steps: 4 12 steps: 4 Picking up objects: 4 Does pt use a wc or scooter: Yes Wheel 50ft w/2 turns: 6 Wheel 150 feet: 6 Type: Manual PT Skilled Nursing Goals Skilled Nursing Goals PT Curtain Cleaner Goals Time Frame: Jul 21, 2021 Roll Left & Right (QC): 6 Sit to Lying (QC): 6 Lying-Sitting on Side/Bed(QC): 6 Sit to Stand (QC): 6 Chair/Sbq-wm-Nfpjh Xfer(QC): 6 Toilet Transfer (QC): 6 Car Transfer (QC): 6 Does the Patient Walk: Yes Walk 10 feet (QC): 6 Walk 50ft with 2 Turns (QC): 6 Walk 150 ft (QC): 6 Walking 10ft on Uneven Surface: 6 1 Step (curb) (QC): 5 4 Steps (QC): 5 12 Steps (QC): 5 Picking up an Object (QC): 6 Does the Pt use WC or Scooter?: Yes Wheel 50 feet with 2 turns (QC: 6 Type: Manual Wheel 150 feet: 6 Type: Manual PT Plan Treatment/Plan Treatment Plan: Continue Plan of Care Treatment Plan: Bed Mobility, Education, Functional Activity Gilda, Functional Strength, Group Therapy, Gait, Safety, Therapeutic Exercise, Transfers Treatment Duration: Aug 05, 2021 Frequency: At least 5 of 7 days/Wk (IRF) Estimated Hrs Per Day: 1.5 hours per day Patient and/or Family Agrees t: Yes Safety Risks/Education Patient Education: Gait Training, Transfer Techniques, Steps, Correct Positioning, Disease Process, Safety Issues Teaching Recipient: Patient Teaching Methods: Demonstration, Discussion Response to Teaching: Verbalize Understanding, Return Demonstration, Reinforcement Needed Time/GCodes Time In: 800 Time Out: 845 Total Billed Treatment Time: 45 Total Billed Treatment 1,GT15m,FA15m,EX15m [facility] Jun 29, 2021 08:49
[2021-06-29] MEDS: polyethylene glycoL POWDER 17 GM (MIRALAX) PACK PO SCH ×4 (09:28→19:08)
[2021-06-29] MEDS: SENNA W/DOCUSATE (SENOKOT S) TABLET PO SCH ×4 (09:28→19:08)
--- NOTE | 2021-06-29 09:35 | Speech Therapy Daily Note ---
Speech Daily Progress Note Subjective Date Seen by Provider: Jun 29, 2021 Time Seen by Provider: 00:30 Patient was resting in her recliner following her PT session. She states she is ready to go home. Objective Patient demonstrated recall of information for the past 2 days at 100% without cues. Assessment Assessment Current Status: Good Progress Treatment Plan Continue Plan of Care Speech Short Term Goals Short Term Goals Short Term Goals 1) The patient will complete memory tasks related to her daily needs at 75% or greater with minimal cues. 2) The patient will complete safety awareness tasks related to her daily needs at 75% or greater with minimal cues. 3) The patient will complete problem solving tasks related to her daily needs at 75% or greater with minimal cues. Speech Residential Goals Infection Control Manager Goals Patient will improve cognitive function abilities in order to return home with decreased assistance and safe. Speech-Plan Patient/Family Goals Patient/Family Goals: Patient will be discharging soon to return to her home with her SO. Treatment Plan Speech Therapy Treatment Plan: Continue Plan of Care Treatment Duration: Jul 03, 2021 Frequency: 4 times per week (Patient will receive skilled ST services 4-5x a week) Estimated Hrs Per Day: .5 hour per day Rehab Potential: Fair Barriers to Learning: Patient's recent surgery, mild cognitive deficits Pt/Family Agrees to Plan: Yes Safety Risks/Education Teaching Recipient: Patient, Significant Other Teaching Methods: Demonstration, Discussion Response to Teaching: Verbalize Understanding, Return Demonstration Education Topics Provided: Continued safety and communication Time Speech Therapy Time In: 09:00 Speech Therapy Time Out: 09:30 Total Billed Time: 30 Billed Treatment Time 1, ESTEBAN Cabrera Jun 29, 2021 09:35
[2021-06-29] MEDS: oxyCODONE/APAP 5/325MG (PERCOCET 5) TABLET PO PRN ×2 (10:10→17:04)
[2021-06-29] MEDS: FUROSEMIDE 20 MG (LASIX) TAB PO SCH (10:10)
--- NOTE | 2021-06-29 11:05 | Occupational Ther Daily Note ---
OT Current Status-Daily Note Subjective Pt reports pain in L knee, no numerical value given. RN notified and pain meds given during session. Appearance Pt returned to sitting in chair, spouse in room. All needs within reach. Mental Status/Objective Attachments: IV ADL-Treatment Therapy Code Descriptions/Definitions Functional [place] Measure: 0=Not Assessed/NA 4=Minimal Assistance 1=Total Assistance 5=Supervision or Setup 2=Maximal Assistance 6=Modified [place] 3=Moderate Assistance 7=Complete IndependenceSCALE: Activities may be completed with or without assistive devices. 1-Iyzritzhei-oyfacah completes the activity by him/herself with no assistance from a helper. 5-Set-up or Clean-up Assistance-helper sets up or cleans up; patient completes activity. [place] assists only prior to or following the activity. 4-Supervision or Touching Assistance-helper provides verbal cues and/or touching/steadying and/or contact guard assistance as patient completes activity. Assistance may be provided throughout the activity or intermittently. 3-Partial/Moderate Assistance-helper does LESS THAN HALF the effort. [place] lifts, holds or supports trunk or limbs, but provides less than half the effort. 2-Substantial/Maximal Assistance-helper does MORE THAN HALF the effort. [place] lifts or holds trunk or limbs and provides more than half the effort. 8-Iqzykjmax-uxplqd does ALL the effort. Patient does none of the effort to complete the activity. Or, the assistance of 2 or more helpers is required for the patient to complete the activity. If activity was not attempted, code reason: 7-Patient Refused. 9-Not Applicable-not attempted and the patient did not perform the activity before the current illness, exacerbation or injury. 10-Not Attempted due to Environmental Limitations-(lack of equipment, weather restraints, etc.). 88-Not Attempted due to Medical Conditions or Safety Concerns. Oral Hygiene (QC): 4 Upper Body Dressing (QC): 4 Pt requires extra time for all tasks secondary to poor attention and being easily distracted. Other Treatment Pt participated in simulated activity (feeding dogs) while in gym. While demonstrating what she typically does at home, pt bent at waist to pickling solution maker "bowls" from floor. No unsteadiness yet requires several visual and verbal cues on proper body mechanics. She was able to "prepare food" with zero UE support. Education on using counter for extra stability. When lowering "bowls" back to floor, pt just drops them a few inches from floor and then attempts to pick them up while reaching through her legs and under her feet. No lob, but OT intercepted and had pt sit to reduce chance of fall. Discussion on safer method by sitting in chair to prepare and position bowls on/off floor. Post instruction, pt with improved safety with task. Pt also participated in dynamic standing activity with goal to improve standing tolerance, balance, endurance, safety, functional reach and cognition. Min cues for slide method across counter and management of walker when sidestepping. No LOB with task but requires CGA for safety throughout. Education OT Patient Education: Correct positioning, Energy conservation, Modified ADL techniques, Progress toward Goal/Update tx plan, Purpose of tx/functional activities, Rehab process, Safety issues, Use of adapted equipment Teaching Recipient: Patient Teaching Methods: Demonstration, Discussion Response to Teaching: Verbalize Understanding, Reinforcement Needed OT Short Term Goals Short Term Goals Time Frame: Jul 03, 2021 Toileting hygiene: 5 Shower/bathe self: 4 Lower body dressin Putting on/taking off footwear: 4 OT Intermediate Goals Intermediate Goals Time Frame: Jul 17, 2021 Eating (QC): 6 Oral Hygiene (QC): 6 Toileting Hygiene (QC): 6 Shower/Bathe Self (QC): 5 Upper Body Dressing (QC): 6 Lower Body Dressing (QC): 6 On/Off Footwear (QC): 6 Additional Goals: 1-Demonstrate ADL Tasks, 2-Verbalize Understanding, 3- ImproveStrength/Gilda 1=Demonstrate adherence to instructed precautions during ADL tasks. 2=Patient will verbalize/demonstrate understanding of assistive devices/modifications for ADL. 3=Patient will improve strength/tolerance for activity to enable patient to perform ADL's. OT Education/Plan Problem List/Assessment Assessment: Decreased Activ Tolerance, Decreased Safety Aware, Decreased UE Strength, Impaired Cognition, Impaired I ADL's, Impaired Self-Care Skills, Restricted Funct UE ROM Discharge Recommendations Plan/Recommendations: Continue POC Treatment Plan/Plan of Care Treatment,Training & Education: Yes Patient would benefit from OT for education, treatment and training to promote independence in ADL's, mobility, safety and/or upper extremity function for ADL's. Plan of Care: ADL Retraining, Functional Mobility, Group Exercise/Act as Ind, UE Funct Exercise/Act Treatment Duration: Jul 17, 2021 Frequency: At least 5 of 7 days/Wk (IRF) Estimated Hrs Per Day: .25 hour per day Agreement: Yes Rehab Potential: Fair Time/GCodes Start Time: 09:30 Stop Time: 10:45 Total Time Billed (hr/min): 75 Billed Treatment Time 1 visit ADL (20 min) FA x 4 (55 min) Savannah Franco OT Jun 29, 2021 11:05
--- NOTE | 2021-06-29 13:43 | Physical Therapy Daily Note ---
PT Daily Note-Current Subjective Pt. agrees to Rx. c/o right knee pain only with AROM ex Pain Numeric Pain Scale: 4 Location: Right Location Body Site: Knee Pain Description: Ache Mental Status Patient Orientation: Normal For Age Attachments: Other-See Comments (mask) Transfers SCALE: Activities may be completed with or without assistive devices. 2-Aeoapqjnuh-lddtlbr completes the activity by him/herself with no assistance from a helper. 5-Set-up or Clean-up Assistance-helper sets up or cleans up; patient completes activity. [place] assists only prior to or following the activity. 4-Supervision or Touching Assistance-helper provides verbal cues and/or touching/steadying and/or contact guard assistance as patient completes activity. Assistance may be provided throughout the activity or intermittently. 3-Partial/Moderate Assistance-helper does LESS THAN HALF the effort. [place] lifts, holds or supports trunk or limbs, but provides less than half the effort. 2-Substantial/Maximal Assistance-helper does MORE THAN HALF the effort. [place] lifts or holds trunk or limbs and provides more than half the effort. 9-Fiqrccjcr-ecoirb does ALL the effort. Patient does none of the effort to complete the activity. Or, the assistance of 2 or more helpers is required for the patient to complete the activity. If activity was not attempted, code reason: 7-Patient Refused. 9-Not Applicable-not attempted and the patient did not perform the activity before the current illness, exacerbation or injury. 10-Not Attempted due to Environmental Limitations-(lack of equipment, weather restraints, etc.). 88-Not Attempted due to Medical Conditions or Safety Concerns. Sit to Stand (QC): 6 Chair/Ogt-wa-Qaimu Xfer(QC): 6 Weight Bearing Right Lower Extremity: Right Weight Bearing/Tolerated Gait Training Does the Patient Walk?: Yes Gait Assistive Device: FWW 160 ft x 2 25 ft x 1 SBA with emphasis on heel strike right and increased knee extension with heel strike Exercises Supine Ex: Ankle pumps, Quad Set, Heel Slides, Short Arc Quads, Straight leg raise Supine Reps: 15 NuStep Minutes: 8 NuStep Workload: 4 Assessment Current Status: Good Progress AROM 5 to 98degrees PT Short Term Goals Short Term Goals Time Frame: Jul 07, 2021 Roll Left & Right: 5 Sit to lyin Lying to sitting on side of be: 5 Sit to stand: 5 Chair/wvc-iw-hmzjo transfer: 5 Toilet transfer: 5 Car transfer: 5 Walk 10 feet: 5 Walk 50 feet with two turns: 5 Walk 150 feet: 5 Walking 10ft on uneven surface: 5 1 step (curb): 4 4 steps: 4 12 steps: 4 Picking up objects: 4 Does pt use a wc or scooter: Yes Wheel 50ft w/2 turns: 6 Wheel 150 feet: 6 Type: Manual PT Vp Lab Goals Vp Lab Goals PT Vp Lab Goals Time Frame: Jul 21, 2021 Roll Left & Right (QC): 6 Sit to Lying (QC): 6 Lying-Sitting on Side/Bed(QC): 6 Sit to Stand (QC): 6 Chair/Tbm-wb-Lcxcp Xfer(QC): 6 Toilet Transfer (QC): 6 Car Transfer (QC): 6 Does the Patient Walk: Yes Walk 10 feet (QC): 6 Walk 50ft with 2 Turns (QC): 6 Walk 150 ft (QC): 6 Walking 10ft on Uneven Surface: 6 1 Step (curb) (QC): 5 4 Steps (QC): 5 12 Steps (QC): 5 Picking up an Object (QC): 6 Does the Pt use WC or Scooter?: Yes Wheel 50 feet with 2 turns (QC: 6 Type: Manual Wheel 150 feet: 6 Type: Manual PT Plan Treatment/Plan Treatment Plan: Continue Plan of Care Treatment Plan: Bed Mobility, Education, Functional Activity Gilda, Functional Strength, Group Therapy, Gait, Safety, Therapeutic Exercise, Transfers Treatment Duration: Aug 05, 2021 Frequency: At least 5 of 7 days/Wk (IRF) Estimated Hrs Per Day: 1.5 hours per day Patient and/or Family Agrees t: Yes Safety Risks/Education Patient Education: Gait Training, Transfer Techniques, Issued Written HEP, Correct Positioning, Disease Process, Safety Issues Teaching Recipient: Patient Teaching Methods: Demonstration, Discussion Response to Teaching: Verbalize Understanding, Return Demonstration, Jim nforcement Needed Time/GCodes Time In: 1300 Time Out: 1345 Total Billed Treatment Time: 45 Total Billed Treatment 1,GT20m,EX25m LORA ROBLES [facility] Jun 29, 2021 13:43
[2021-06-29 19:35] VITALS: BP 137/63
[2021-06-30] MEDS: MULTIVIT W/MINERALS TAB (THERAGRAN M) PO SCH (06:01)
[2021-06-30] MEDS: LEVOTHYROXINE 75 MCG (LEVOTHROID) TABLET PO SCH (06:01)
[2021-06-30 07:44] VITALS: BP 157/70
--- NOTE | 2021-06-30 08:05 | Speech Therapy Daily Note ---
Speech Daily Progress Note Subjective Date Seen by Provider: Jun 30, 2021 Time Seen by Provider: 00:30 Patient was resting in her recliner with her present. The patient is excited that she will be discharging tomorrow. Objective Patient completed a series of safety awareness questions related to her return home with 95% given minimal cues. Assessment Assessment Current Status: Good Progress Treatment Plan Discontinue ST, Goals Met Speech Short Term Goals Short Term Goals Short Term Goals 1) The patient will complete memory tasks related to her daily needs at 75% or greater with minimal cues. 2) The patient will complete safety awareness tasks related to her daily needs at 75% or greater with minimal cues. 3) The patient will complete problem solving tasks related to her daily needs at 75% or greater with minimal cues. Speech Penitentiary Goals Registered Pharmacist Goals Patient will improve cognitive function abilities in order to return home with decreased assistance and safe. Speech-Plan Patient/Family Goals Patient/Family Goals: Patient is scheduled for discharge to her home tomorrow. She will receive assistance from her as well as home health therapy. Treatment Plan Speech Therapy Treatment Plan: Discontinue ST, Goals Met Treatment Duration: Jul 03, 2021 Frequency: 4 times per week (Patient will receive skilled ST services 4-5x a week) Estimated Hrs Per Day: .5 hour per day Rehab Potential: Fair Barriers to Learning: Patient's recent surgery, age, mild cognitive deficits Pt/Family Agrees to Plan: Yes Safety Risks/Education Teaching Recipient: Patient, Significant Other Teaching Methods: Demonstration, Discussion Response to Teaching: Verbalize Understanding, Return Demonstration Education Topics Provided: Continued safety upon her return home. Discharge Recommendations QUALITY CODES: EXPRESSION OF IDEAS/WANTS: 4 UNDERSTANDING VERBAL CONTENT: 4 BRIEF INTERVIEW MENTAL STATUS:; YES REPETITION OF 3 WORDS: 3 TEMPORAL ORIENTATION: YEAR: CORRECT, MONTH: CORRECT, DAY: CORRECT RECALL SOCK: YES, COLOR: YES, BED: YES MEMORY/RECALL ABILITY: SEASON, LOCATION OF ROOM, STAFF NAMES, THAT SHE IS IN THE HOSPITAL Time Speech Therapy Time In: 09:00 Speech Therapy Time Out: 09:30 Total Billed Time: 30 Billed Treatment Time 1, PATRICIA BYRDNIRMALESTEBAN ST Jun 30, 2021 08:05
--- NOTE | 2021-06-30 08:07 | Cardiology Progress Note ---
Subjective Date Seen by Provider: Jun 30, 2021 Time Seen by Provider: 08:06 Subjective/Events-last exam Patient was seen at bedside, sitting comfortably, eating breakfast, no new complaint Review of Systems General: No Chills, No Night Sweats, No Fatigue, No Malaise, No Appetite, No Other HEENT: No Head Aches, No Visual Changes, No Eye Pain, No Ear Pain, No Dysphasia, No Sinus Congestion, No Post Nasal Drip, No Sore Throat, No Other Pulmonary: No Dyspnea, No Cough, No Pleuritic Chest Pain, No Other Cardiovascular: No: Chest Pain, Palpitations, Orthopnea, Paroxysmal Noc. Dyspnea, Edema, Lt Headedness, Other Objective-Cardiology Exam Last Set of Vital Signs Vital Signs 06/26/21 06/30/21 06/30/21 08:57 07:13 07:44 Temp 36.6 Pulse 76 Resp 18 B/P (MAP) 157/70 (99) Pulse Ox 92 O2 Delivery Room Air O2 Flow Rate 1.00 FiO2 94 General: Alert, Oriented X3, Cooperative HEENT: Atraumatic, PERRLA Neck: Supple, No JVD, No Thyromegaly Lungs: Clear to Auscultation, Normal Air Movement Heart: Regular Rate, Normal S1, Normal S2, No Murmurs Abdomen: Normal Bowel Sounds, Soft, No Tenderness, No Hepatosplenomegaly, No Masses Extremities: No Clubbing, No Cyanosis, No Edema Skin: No Rashes Neuro: Normal Speech, Sensation Intact Psych/Mental Status: Mental Status NL, Mood NL A/P-Cardiology Admission Diagnosis s/p Acute respiratory failure pneumonia CAD Assessment/Plan Status post acute respiratory insufficiency, resolved, feeling better. Not using oxygen at this time. Pneumonia, resolved, managed by primary care team Anemia, stable and slowly improving. Continue to monitor H/H Transient orthostatic hypotension after exercise, blood pressure is elevated today, I am hesitant to increase her blood pressure medication due to the orthostatic dizziness and hypotension. Continue to monitor blood pressure S/p R TKR, continue with PT/OT Coronary artery disease with history of stent to LAD. Underwent cardiac catheterization in July 2017 in [place] revealing patent stent with nonobstr uctive disease. Continue to monitor. History of severe aortic valve stenosis, status post TAVR done September 06, 2017 in [place] with uneventful deployment of a 26 mm Medtronic Evolut Pro. Most recent 2D Echo 10/12/18 revealing mechanical prothesis present in aortic valve. Peak gradient across prosthetic valve is 26 mmHg, mean gradient 13mmHg, calculated valve area 2.41 cm squared. Mild AR. there is perivalvular regurg, Mod TR, Repeat 2D echo was done on June 20, 2021 showing moderate to severe LVH with normal systolic function, significant deterioration in the aortic valve with a peak gradient of 91 mmHg, valve area 1.4 cm. Mild mitral valve stenosis, pulmonary hypertension with PA pressure 50 to 55 mmHg Patient will need close monitoring and she probably will need another TAVR in the near future Paroxysmal atrial fibrillation, currently on Xarelto, Coreg and diltiazem. Continue to monitor Anemia, continue to monitor H/H. I will d/c ASA HTP- 2D Echo done June 2021 with PA 50-55mmHg. Mild bilateral carotid stenosis, history of syncope. Last ultrasound was done in July 2018, continue to monitor. Sick sinus syndrome, history of permanent pacemaker. Continue to monitor. Hyperlipidemia, monitored as outpatient. Hypothyroidism, patient is maintained on amiodarone,continue to monitor. EDY GOOD MD Jun 30, 2021 08:07
[2021-06-30] MEDS: CEFDINIR 300 MG (OMNICEF) CAP PO SCH (08:10)
[2021-06-30] MEDS: FUROSEMIDE 20 MG (LASIX) TAB PO SCH (08:10)
[2021-06-30] MEDS: GABAPENTIN 100 MG (NEURONTIN) CAP PO SCH ×2 (08:10→21:18)
[2021-06-30] MEDS: RIVAROXABAN 20 MG TABLET (XARELTO) PO SCH (08:10)
[2021-06-30] MEDS: FAMOTIDINE 20 MG (PEPCID) TABLET PO SCH (08:10)
[2021-06-30] MEDS: LACTOBACILLUS ACIDOPHILUS (PROBIOTIC) CAPSULE PO SCH ×3 (08:10→18:19)
[2021-06-30] MEDS: KCL 10 MEQ TAB (MICRO K) PO SCH (08:11)
--- NOTE | 2021-06-30 08:47 | PM&R Progress Note ---
Subjective HPI/CC On Admission Date Seen by Provider: Jun 30, 2021 Time Seen by Provider: 09:00 Subjective/Events-last exam 06/30/2021: Ready for discharge tomorrow No major complaints Finished up with antibiotics today 06/29/2021: Patient doing really well Hemoglobin 8.2 Had a nosebleed today but not severe Ready for discharge when team agrees 06/28/2021: Patient doing well Left arm is swollen from IV site K pad will be placed Completing on antibiotics 06/27/2021: Patient doing much better Remains on 1.5 L of oxygen Probiotic request due to loose stools IV iron infusion tolerated Vitamin B12 level is okay Walking well 06/26/21: Weaning down O2 to 1.5L/min Venofer tolerated Dr Dixon ordered labs for tomorrow BM+ Wants to go home prematurely 06/25/2021: Patient doing really well Wants to go home desperately Had a syncopal episode while in physical therapy Iron infusion indicated Discontinued cefepime Omnicef started Confused at times Hemoglobin 7.9 Review of Systems General: Fatigue Musculoskeletal: leg pain Objective Exam Vital Signs Vital Signs Date Time Temp Pulse Resp B/P (MAP) Pulse Ox O2 Delivery O2 Flow Rate FiO2 06/30/21 20:00 93 Nasal Cannula 0.00 06/30/21 20:00 37.6 80 18 164/76 (105) 06/26/21 08:57 94 Capillary Refill : General Appearance: No Apparent Distress, WD/WN, Chronically ill HEENT: PERRL/EOMI, Normal ENT Inspection, Pharynx Normal Neck: Full Range of Motion, Normal Inspection, Non Tender, Supple, Carotid Bruit Respiratory: Chest Non Tender, Normal Breath Sounds, No Accessory Muscle Use, No Respiratory Distress, Crackles, Decreased Breath Sounds Cardiovascular: Regular Rate, Rhythm, No Edema, No Gallop, No JVD, No Murmur, Normal Peripheral Pulses Gastrointestinal: Normal Bowel Sounds, No Organomegaly, No Pulsatile Mass, Non Tender, Soft Back: Normal Inspection, No CVA Tenderness, No Vertebral Tenderness Extremity: Normal Capillary Refill, Normal Inspection, Normal Range of Motion (excep right leg), Non Tender, No Calf Tenderness, No Pedal Edema Neurologic/Psychiatric: Alert, Oriented x3, No Motor/Sensory Deficits, Normal Mood/Affect Skin: Normal Color, Warm/Dry Lymphatic: No Adenopathy Results/Procedures Lab Patient resulted labs reviewed. FIM Transfers Therapy Code Descriptions/Definitions Functional [place] Measure: 0=Not Assessed/NA 4=Minimal Assistance 1=Total Assistance 5=Supervision or Setup 2=Maximal Assistance 6=Modified [place] 3=Moderate Assistance 7=Complete IndependenceSCALE: Activities may be completed with or without assistive devices. 2-Jfhmabawdx-tvlssgt completes the activity by him/herself with no assistance from a helper. 5-Set-up or Clean-up Assistance-helper sets up or cleans up; patient completes activity. [place] assists only prior to or following the activity. 4-Supervision or Touching Assistance-helper provides verbal cues and/or touching/steadying and/or contact guard assistance as patient completes activity. Assistance may be provided throughout the activity or intermittently. 3-Partial/Moderate Assistance-helper does LESS THAN HALF the effort. [place] lifts, holds or supports trunk or limbs, but provides less than half the effort. 2-Substantial/Maximal Assistance-helper does MORE THAN HALF the effort. [place] lifts or holds trunk or limbs and provides more than half the effort. 5-Vyxbsylto-rabxwd does ALL the effort. Patient does none of the effort to complete the activity. Or, the assistance of 2 or more helpers is required for the patient to complete the activity. If activity was not attempted, code reason: 7-Patient Refused. 9-Not Applicable-not attempted and the patient did not perform the activity before the current illness, exacerbation or injury. 10-Not Attempted due to Environmental Limitations-(lack of equipment, weather restraints, etc.). 88-Not Attempted due to Medical Conditions or Safety Concerns. Roll Left to Right (QC): 6 Sit to Lying (QC): 5 Sit to Stand (QC): 6 Chair/Euk-jb-Dxpov Xfer(QC): 6 Car Transfer (QC): 6 Gait Training Does the Patient Walk?: Yes Distance: 50' x 2 Walk 10 feet (QC): 5 Walk 50 ft with 2 Turns(QC): 5 Walk 150 ft (QC): 5 Walking 10ft/uneven surface-QC: 4 Gait Persons Needed: 1 Gait Assistive Device: FWW Wheelchair Training Does the Pt Use a Wheelchair?: Yes Distance: 50 Wheel 50 ft with 2 turns (QC): 4 Wheel 150 ft (QC): 88 Type of Wheelchair: Manual Stair Training Stair Training: Handrails/: 2 handrails #of Steps: 4 1 Step (curb) (QC): 88 4 Steps (QC): 4 12 Steps (QC): 88 Stairs: Pattern: Step to Balance Picking up an Object (QC): 88 ADL-Treatment Eating (QC): 5 (set up with lunch) Oral Hygiene (QC): 4 Shower/Bathe Self (QC): 3 Upper Body Dressing (QC): 4 Lower Body Dressing (QC): 4 On/Off Footwear (QC): 3 Toileting Hygiene (QC): 3 Toilet Transfer (QC): 4 Assessment/Plan Assessment and Plan Assess & Plan/Chief Complaint Assessment: Status post acute respiratory distress on 06/20/2021 requiring ICU transfer PNA on CXR 06/20/2021 and PCT elevated but negative the day before with CXR and PCT normal Sepsis Elevated BNP acute on chronic CHF Pacemaker Previous TVAR for aortic stenosis and current echo report severe aortic stenosis again may need repeat procedure AF OAC disrupted due to ortho surgery so required CT angiogram to r/o PE which was negative for PE Dementia? 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 Dixon 06/23/2021: Ready for rehab 06/24/21: Confusion monitoring Rehab protocol 06/25/2021: Monitor confusion Iron infusion 06/26/21: Venofer Monitor confusion Wean O2 06/27/2021: Supportive care 06/28/2021: Supportive care 06/29/2021: Discharge planning Complete antibiotics 06/30/2021: Discharge plan for tomorrow (1) Status post right knee replacement (2) Acute respiratory failure with hypoxia Status: Acute (3) Paroxysmal A-fib Status: Chronic (4) HTN (hypertension) Status: Chronic (5) Hypothyroidism Status: Chronic (6) Hypertension Status: Acute DAYA VILLEGAS DO Jun 30, 2021 08:47
[2021-06-30] MEDS: SENNA W/DOCUSATE (SENOKOT S) TABLET PO SCH ×4 (09:50→22:10)
[2021-06-30] MEDS: polyethylene glycoL POWDER 17 GM (MIRALAX) PACK PO SCH ×4 (09:50→22:10)
--- NOTE | 2021-06-30 10:25 | Occupational Ther Daily Note ---
OT Current Status-Daily Note Subjective Agreeable to treatment. Pt verbalizes pain with marisol care (around labial of vagina). Difficult to assess as pt stood. RN notified to assess in supine. Appearance Left sitting in chair, all needs within reach, RN notified. Mental Status/Objective Patient Orientation: Person Attachments: IV ADL-Treatment Therapy Code Descriptions/Definitions Functional [place] Measure: 0=Not Assessed/NA 4=Minimal Assistance 1=Total Assistance 5=Supervision or Setup 2=Maximal Assistance 6=Modified [place] 3=Moderate Assistance 7=Complete IndependenceSCALE: Activities may be completed with or without assistive devices. 2-Xshqxbrkum-avrsjbn completes the activity by him/herself with no assistance from a helper. 5-Set-up or Clean-up Assistance-helper sets up or cleans up; patient completes activity. [place] assists only prior to or following the activity. 4-Supervision or Touching Assistance-helper provides verbal cues and/or touching/steadying and/or contact guard assistance as patient completes activity. Assistance may be provided throughout the activity or intermittently. 3-Partial/Moderate Assistance-helper does LESS THAN HALF the effort. [place] lifts, holds or supports trunk or limbs, but provides less than half the effort. 2-Substantial/Maximal Assistance-helper does MORE THAN HALF the effort. [place] lifts or holds trunk or limbs and provides more than half the effort. 3-Sgnnbiune-efwpnx does ALL the effort. Patient does none of the effort to complete the activity. Or, the assistance of 2 or more helpers is required for the patient to complete the activity. If activity was not attempted, code reason: 7-Patient Refused. 9-Not Applicable-not attempted and the patient did not perform the activity before the current illness, exacerbation or injury. 10-Not Attempted due to Environmental Limitations-(lack of equipment, weather restraints, etc.). 88-Not Attempted due to Medical Conditions or Safety Concerns. Eating (QC): 6 Shower/Bathe Self (QC): 4 Upper Body Dressing (QC): 5 Lower Body Dressing (QC): 4 On/Off Footwear: 3 (min) Toileting Hygiene (QC): 4 Toilet Transfer (QC): 4 Shower performed; majority completed in sitting. R knee c/d/i post task. Pt stood only briefly to wash marisol area/buttocks. No unsteadiness in standing but does require intermittent unilateral support on grab bar. Pt able to reach all body parts without assist. She does require supervision/sba for safety and sequencing throughout task. Clothes donned seated on chair. CGA for safety as she stood to pull brief/pants up to waist with zero UE support. Min a only to don Right compression sock due to tight fit with swelling. Pt able to bend at waist to don and tie shoes. Education OT Patient Education: Correct positioning, Energy conservation, Modified ADL techniques, Progress toward Goal/Update tx plan, Purpose of tx/functional activities, Safety issues Teaching Recipient: Patient Teaching Methods: Demonstration, Discussion Response to Teaching: Return Demonstration, Reinforcement Needed OT Short Term Goals Short Term Goals Time Frame: Jul 03, 2021 Toileting hygiene: 5 Shower/bathe self: 4 Lower body dressin Putting on/taking off footwear: 4 OT Care Home Goals Looper Operator Goals Time Frame: Jul 17, 2021 Eating (QC): 6 (met) Oral Hygiene (QC): 6 Toileting Hygiene (QC): 6 (not met) Shower/Bathe Self (QC): 5 (not met) Upper Body Dressing (QC): 6 (not met) Lower Body Dressing (QC): 6 (not met) On/Off Footwear (QC): 6 (not met) Additional Goals: 1-Demonstrate ADL Tasks, 2-Verbalize Understanding, 3- ImproveStrength/Gilda 1=Demonstrate adherence to instructed precautions during ADL tasks. 2=Patient will verbalize/demonstrate understanding of assistive devices/modifications for ADL. 3=Patient will improve strength/tolerance for activity to enable patient to perform ADL's. OT Education/Plan Problem List/Assessment Assessment: Decreased Activ Tolerance, Decreased Safety Aware, Decreased UE Strength, Impaired Cognition, Impaired Self-Care Skills Discharge Recommendations Plan/Recommendations: Continue POC Therapy Discharge Recommendati: Intermittent Supervision, Homemaker Support Target Placement Home health with family support and frequent checks/supervision with adls due to poor safety awareness. Treatment Plan/Plan of Care Treatment,Training & Education: Yes Patient would benefit from OT for education, treatment and training to promote independence in ADL's, mobility, safety and/or upper extremity function for ADL's. Plan of Care: ADL Retraining, Functional Mobility, Group Exercise/Act as Ind, UE Funct Exercise/Act Treatment Duration: Jul 17, 2021 Frequency: At least 5 of 7 days/Wk (IRF) Estimated Hrs Per Day: 1.5 hours per day Agreement: Yes Rehab Potential: Fair Time/GCodes Start Time: 08:00 Stop Time: 09:00 Total Time Billed (hr/min): 60 Billed Treatment Time 1 visit ADL x4 Savannah Franco OT Jun 30, 2021 10:25
--- NOTE | 2021-06-30 11:36 | Physical Therapy Daily Note ---
PT Daily Note-Current Subjective Pt in recliner w/ spouse in room upon arrival, reluctantly agrees to PT with encouragement from PT and spouse. Pt states she doesn't feel well and she isn't getting enough air. O2 checked at 94% and HR of 78 Pain Location: Right Location Body Site: Knee Pain Description: Sharp Mental Status Patient Orientation: Person, Place, Time, Situation Transfers SCALE: Activities may be completed with or without assistive devices. 8-Iasxpderyb-qwbrhlm completes the activity by him/herself with no assistance from a helper. 5-Set-up or Clean-up Assistance-helper sets up or cleans up; patient completes activity. [place] assists only prior to or following the activity. 4-Supervision or Touching Assistance-helper provides verbal cues and/or touching/steadying and/or contact guard assistance as patient completes activity. Assistance may be provided throughout the activity or intermittently. 3-Partial/Moderate Assistance-helper does LESS THAN HALF the effort. [place] lifts, holds or supports trunk or limbs, but provides less than half the effort. 2-Substantial/Maximal Assistance-helper does MORE THAN HALF the effort. [place] lifts or holds trunk or limbs and provides more than half the effort. 9-Mvdfcbzeb-bchjqu does ALL the effort. Patient does none of the effort to complete the activity. Or, the assistance of 2 or more helpers is required for the patient to complete the activity. If activity was not attempted, code reason: 7-Patient Refused. 9-Not Applicable-not attempted and the patient did not perform the activity before the current illness, exacerbation or injury. 10-Not Attempted due to Environmental Limitations-(lack of equipment, weather restraints, etc.). 88-Not Attempted due to Medical Conditions or Safety Concerns. Roll Left & Right (QC): 6 Sit to Lying (QC): 6 Lying to Sitting/Side of Bed(Q: 6 Sit to Stand (QC): 6 Chair/Roa-wu-Slldk Xfer(QC): 6 Toilet Transfer (QC): 6 Car Transfer (QC): 6 Weight Bearing Right Lower Extremity: Right Weight Bearing/Tolerated Gait Training Does the Patient Walk?: Yes Distance: 200', 125' Walk 10 feet (QC): 5 Walk 50 ft with 2 Turns(QC): 5 Walk 150 ft (QC): 5 Walking 10ft/uneven surface-QC: 5 Gait Assistive Device: FWW Pt has slow, antalgic gait with exaggerated knee flexion on R LE Wheelchair Training Does the Pt Use a Wheelchair?: No Stair Training Stair Training: Handrails/: 2 handrails #of Steps: 12 1 Step (curb) (QC): 5 4 Steps (QC): 5 12 Steps (QC): 5 Stairs: Pattern: Step to Pt able to safely complete stair training with correct sequencing Balance Picking up an Object (QC): 5 Exercises Seated Therapy Exercises: Sit to stand, Long arc quads, Hamstring Curls, Hip abd/add Seated Reps: 10 Standing: Heel/toe raises, Marching, Mini squats Standing Reps: 10 NuStep Minutes: 12 NuStep Workload: 4 Treatments Pt in recliner and transfers to bed to complete bed mobility, amb to car and c ompletes car transfer. Pt then completes stair training, amb on uneven surface, and picks up object from ground. Pt then completes NuStep, followed by standing exercises in // bars. Pt then performs seated exercises. Pt amb 200' on ARU and returns to room. Pt enters bathroom. PT exits tx as OT enters tx, pt remains in bathroom with OT and all needs met. Assessment Current Status: Good Progress Pt overall safe and steady. Requires frequent rest breaks PT Short Term Goals Short Term Goals Time Frame: Jul 07, 2021 Roll Left & Right: 5 Sit to lyin Lying to sitting on side of be: 5 Sit to stand: 5 Chair/xhq-mr-brnbp transfer: 5 Toilet transfer: 5 Car transfer: 5 Walk 10 feet: 5 Walk 50 feet with two turns: 5 Walk 150 feet: 5 Walking 10ft on uneven surface: 5 1 step (curb): 4 4 steps: 4 12 steps: 4 Picking up objects: 4 Does pt use a wc or scooter: Yes Wheel 50ft w/2 turns: 6 Wheel 150 feet: 6 Type: Manual PT Fdc Goals Fdc Goals PT Visualizer Goals Time Frame: Jul 21, 2021 Roll Left & Right (QC): 6 Sit to Lying (QC): 6 Lying-Sitting on Side/Bed(QC): 6 Sit to Stand (QC): 6 Chair/Reo-ji-Lfzpg Xfer(QC): 6 Toilet Transfer (QC): 6 Car Transfer (QC): 6 Does the Patient Walk: Yes Walk 10 feet (QC): 6 Walk 50ft with 2 Turns (QC): 6 Walk 150 ft (QC): 6 Walking 10ft on Uneven Surface: 6 1 Step (curb) (QC): 5 4 Steps (QC): 5 12 Steps (QC): 5 Picking up an Object (QC): 6 Does the Pt use WC or Scooter?: Yes Wheel 50 feet with 2 turns (QC: 6 Type: Manual Wheel 150 feet: 6 Type: Manual PT Plan Treatment/Plan Treatment Plan: Continue Plan of Care Treatment Plan: Bed Mobility, Education, Functional Activity Gilda, Functional Strength, Group Therapy, Gait, Safety, Therapeutic Exercise, Transfers Treatment Duration: Aug 05, 2021 Frequency: At least 5 of 7 days/Wk (IRF) Estimated Hrs Per Day: 1.5 hours per day Patient and/or Family Agrees t: Yes Time/GCodes Time In: 1030 Time Out: 1145 Total Billed Treatment Time: 75 Total Billed Treatment 1, FA x2, EX x2, GT PAULA MAN PUNCHBOARD FILLING MACHINE OPERATOR Jun 30, 2021 11:36
--- NOTE | 2021-06-30 11:37 | Occupational Ther Daily Note ---
OT Current Status-Daily Note Subjective Took over care from PT. Pt agrees to therapy. Pt c/o pain in R knee, rated 10/10 pain. Reported to nrsg and ice applied to knee. Mental Status/Objective Patient Orientation: Person, Place, Time, Situation ADL-Treatment Therapy Code Descriptions/Definitions Functional [place] Measure: 0=Not Assessed/NA 4=Minimal Assistance 1=Total Assistance 5=Supervision or Setup 2=Maximal Assistance 6=Modified [place] 3=Moderate Assistance 7=Complete IndependenceSCALE: Activities may be completed with or without assistive devices. 9-Yhwggzxzeg-smrnmoy completes the activity by him/herself with no assistance from a helper. 5-Set-up or Clean-up Assistance-helper sets up or cleans up; patient completes activity. [place] assists only prior to or following the activity. 4-Supervision or Touching Assistance-helper provides verbal cues and/or touching/steadying and/or contact guard assistance as patient completes activity. Assistance may be provided throughout the activity or intermittently. 3-Partial/Moderate Assistance-helper does LESS THAN HALF the effort. [place] lifts, holds or supports trunk or limbs, but provides less than half the effort. 2-Substantial/Maximal Assistance-helper does MORE THAN HALF the effort. [place] lifts or holds trunk or limbs and provides more than half the effort. 2-Sgixqvgis-yhgqxg does ALL the effort. Patient does none of the effort to complete the activity. Or, the assistance of 2 or more helpers is required for the patient to complete the activity. If activity was not attempted, code reason: 7-Patient Refused. 9-Not Applicable-not attempted and the patient did not perform the activity before the current illness, exacerbation or injury. 10-Not Attempted due to Environmental Limitations-(lack of equipment, weather restraints, etc.). 88-Not Attempted due to Medical Conditions or Safety Concerns. Oral Hygiene (QC): 6 (Pt able to stand at sink to complete oral care in dependently.) OT Short Term Goals Short Term Goals Time Frame: Jul 03, 2021 Toileting hygiene: 5 Shower/bathe self: 4 Lower body dressin Putting on/taking off footwear: 4 OT Instructor [employer] Goals Mcfp Goals Time Frame: Jul 17, 2021 Eating (QC): 6 (met) Oral Hygiene (QC): 6 Toileting Hygiene (QC): 6 (not met) Shower/Bathe Self (QC): 5 (not met) Upper Body Dressing (QC): 6 (not met) Lower Body Dressing (QC): 6 (not met) On/Off Footwear (QC): 6 (not met) Additional Goals: 1-Demonstrate ADL Tasks, 2-Verbalize Understanding, 3-ImproveStrength/Gilda 1=Demonstrate adherence to instructed precautions during ADL tasks. 2=Patient will verbalize/demonstrate understanding of assistive devices/modifications for ADL. 3=Patient will improve strength/tolerance for activity to enable patient to perf orm ADL's. OT Education/Plan Problem List/Assessment Assessment: Decreased Activ Tolerance, Impaired Self-Care Skills Discharge Recommendations Plan/Recommendations: Continue POC Treatment Plan/Plan of Care Patient would benefit from OT for education, treatment and training to promote independence in ADL's, mobility, safety and/or upper extremity function for ADL's. Plan of Care: ADL Retraining, Functional Mobility, Group Exercise/Act as Ind, UE Funct Exercise/Act Treatment Duration: Jul 17, 2021 Frequency: At least 5 of 7 days/Wk (IRF) Estimated Hrs Per Day: 1.5 hours per day Agreement: Yes Rehab Potential: Fair Time/GCodes Start Time: 11:45 Stop Time: 12:00 Total Time Billed (hr/min): 15 Billed Treatment Time 1 visit-ADL 1 (15 min) LESTER LOPES Jun 30, 2021 11:37
[2021-06-30] MEDS: oxyCODONE/APAP 5/325MG (PERCOCET 5) TABLET PO PRN ×2 (11:46→21:19)
[2021-06-30 20:00] VITALS: BP 164/76
[2021-06-30] MEDS ORDERED: SENN1TAB76 PO (21:28)
[2021-06-30] MEDS ORDERED: FAMO20TA5 PO (21:28)
[2021-06-30] MEDS ORDERED: OXYC1TAB87 PO (21:28)
[2021-06-30] MEDS ORDERED: MULT-1137 PO (21:28)
--- NOTE | 2021-06-30 21:31 | D/C HH Face to Face Order ---
D/C Face to Face Orders Reconcile Patient Problems Problems Reviewed?: Yes Instructions for Patient [place] Patient Instructions/FollowUp: PCP 1 week Physician to follow Patient: PCP Discharge Diet for Home: No Restrictions Patient Problems: knee replacement Patient Data-Allergies,Ht & Wt Patient Allergies: Coded Allergies: Penicillins (Verified Allergy, Unknown, 06/23/21) pineapple (Verified Allergy, Unknown, 06/23/21) Height (Feet): 5 Height (Inches): 9.00 Weight (Pounds): 171 Weight (Ounces): 9.0 Home Health Need/Face to Face Date of Face to Face: Jun 30, 2021 Clinical Findings: Generalized weakness and fatigue, Immune-compromised, Instability, Muscle weakness, Unsteady gait I have seen Pt [id number]: Yes Discharged To: Home Diagnosis/Conditions: knee replacement Patient is Homebound due to: CognItive deficits, [place] fall risk due to instabilty, Muscle weakness, Pain w/ambulation Homebound Status Due to the above stated illness, injury or surgical procedure (medical condition or diagnosis) and associated clinical findings, the patient is homebound because of his/her inability to leave home except with aid of a supportive device and/or person AND leaving the home requires a considerable and taxing effort or is medically contraindicated. Pt req the following assistanc: [facility] Nursing Orders Home Health Services Order: Nursing Services, Clinical Recruiter-Evaluate & Treat, Physical Therapy-Evaluate & Treat Certify Stmt I certify that this patient is under my care and that I, a nurse practitioner or a physician; a custody assistant working with me, had a face to face encounter that - meets the physician face to face encounter requirements with this patient as dated. DAYA VILLEGAS DO Jun 30, 2021 21:31
[2021-07-01] MEDS: LEVOTHYROXINE 75 MCG (LEVOTHROID) TABLET PO SCH (06:50)
[2021-07-01] MEDS: MULTIVIT W/MINERALS TAB (THERAGRAN M) PO SCH (06:50)
--- NOTE | 2021-07-01 07:12 | Discharge Summary ---
Diagnosis/Chief Complaint Date of Admission Jun 23, 2021 at 13:30 Date of Discharge Discharge Date: Jul 01, 2021 Discharge Diagnosis Assessment: Status post acute respiratory distress on 06/20/2021 requiring ICU transfer PNA on CXR 06/20/2021 and PCT elevated but negative the day before with CXR and PCT normal Sepsis Elevated BNP acute on chronic CHF Pacemaker Previous TVAR for aortic stenosis and current echo report severe aortic stenosis again may need repeat procedure AF OAC disrupted due to ortho surgery so required CT angiogram to r/o PE which was negative for PE Dementia? 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 Dixon 06/23/2021: Ready for rehab 06/24/21: Confusion monitoring Rehab protocol 06/25/2021: Monitor confusion Iron infusion 06/26/21: Venofer Monitor confusion Wean O2 06/27/2021: Supportive care 06/28/2021: Supportive care 06/29/2021: Discharge planning Complete antibiotics 06/30/2021: Discharge plan for tomorrow (1) Status post right knee replacement (2) Acute respiratory failure with hypoxia Status: Acute (3) Paroxysmal A-fib Status: Chronic (4) HTN (hypertension) Status: Chronic (5) Hypothyroidism Status: Chronic (6) Hypertension Status: Acute Discharge Summary Discharge Physical Examination Allergies: Coded Allergies: Penicillins (Verified Allergy, Unknown, 06/23/21) pineapple (Verified Allergy, Unknown, 06/23/21) Vitals & I&Os Vital Signs Date Time Temp Pulse Resp B/P (MAP) Pulse Ox O2 Delivery O2 Flow Rate FiO2 07/01/21 12:00 37.1 74 18 124/58 91 Room Air 0.00 06/26/21 08:57 94 General Appearance: Alert, Oriented X3, Cooperative Respiratory: Clear to Auscultation Cardiovascular: Regular Rate Neuro: Normal Gait, Normal Speech, Strength at 5/5 X4 Ext Psych/Mental Status: Mental Status NL Hospital Course Was the Problem List Reviewed?: Yes Hospital course: Patient had a standard hospital course while completing her IV antibiotics for hospital-acquired pneumonia she required postoperatively and required interruption in her rehab stay and sent back to the ICU. She received iron infusion for severe anemia postoperatively. She is able to participate in home PT and OT. She required 1 L of oxygen at night. Cardiology followed her also. Pain was well controlled and overall she had no concerns at time of discharge and was deemed stable for discharge. Labs (last 24 hrs) Laboratory Tests 06/24/21 06:31: White Blood Count 7.7, Red Blood Count 2.68L, Hemoglobin 7.9L, Hematocrit 26L, Mean Corpuscular Volume 96, Mean Corpuscular Hemoglobin 30, Mean Corpuscular Hemoglobin Concent 31L, Red Cell Distribution Width 14.0, Platelet Count 323, Mean Platelet Volume 9.8, Immature Granulocyte % (Auto) 1, Neutrophils (%) (Auto) 68, Lymphocytes (%) (Auto) 14, Monocytes (%) (Auto) 13H, Eosinophils (%) (Auto) 4, Basophils (%) (Auto) 1, Neutrophils # (Auto) 5.2, Lymphocytes # (Auto) 1.0, Monocytes # (Auto) 1.0, Eosinophils # (Auto) 0.3, Basophils # (Auto) 0.1, Immature Granulocyte # (Auto) 0.1, Sodium Level 140, Potassium Level 4.2, Chloride Level 101, Carbon Dioxide Level 30, Anion Gap 9, Blood Urea Nitrogen 18, Creatinine 0.85, Estimat Glomerular Filtration Rate 64, BUN/Creatinine Ratio 21, Glucose Level 108H, Calcium Level 8.8, Corrected Calcium 9.5, Total Bilirubin 0.9, Aspartate Amino Transf (AST/SGOT) 22, Alanine Aminotransferase (A LT/SGPT) 11, Alkaline Phosphatase 89, Total Protein 6.0L, Albumin 3.1L 06/25/21 06:31: Iron Level 31L, Vitamin B12 Level 1160H 06/27/21 06:15: White Blood Count 9.7, Red Blood Count 2.73L, Hemoglobin 8.2L, Hematocrit 27L, Mean Corpuscular Volume 97, Mean Corpuscular Hemoglobin 30, Mean Corpuscular Hemoglobin Concent 31L, Red Cell Distribution Width 14.7H, Platelet Count 396, Mean Platelet Volume 9.3, Sodium Level 140, Potassium Level 4.3, Chloride Level 101, Carbon Dioxide Level 29, Anion Gap 10, Blood Urea Nitrogen 14, Creatinine 0.81, Estimat Glomerular Filtration Rate 68, BUN/Creatinine Ratio 17, Glucose Level 94, Calcium Level 9.2 06/29/21 05:35: White Blood Count 8.3, Red Blood Count 2.69L, Hemoglobin 8.2L, Hematocrit 27L, Mean Corpuscular Volume 101H, Mean Corpuscular Hemoglobin 31, Mean Corpuscular Hemoglobin Concent 30L, Red Cell Distribution Width 15.3H, Platelet Count 383, Mean Platelet Volume 9.5, Immature Granulocyte % (Auto) 1, Neutrophils (%) (Auto) 66, Lymphocytes (%) (Auto) 18, Monocytes (%) (Auto) 11, Eosinophils (%) (Auto) 3, Basophils (%) (Auto) 1, Neutrophils # (Auto) 5.4, Lymphocytes # (Auto) 1.5, Monocytes # (Auto) 0.9, Eosinophils # (Auto) 0.3, Basophils # (Auto) 0.1, Immature Granulocyte # (Auto) 0.1, Sodium Level 141, Potassium Level 4.5, Chloride Level 101, Carbon Dioxide Level 30, Anion Gap 10, Blood Urea Nitrogen 13, Creatinine 0.89, Estimat Glomerular Filtration Rate 61, BUN/Creatinine Ratio 15, Glucose Level 102, Calcium Level 9.1, Corrected Calcium 9.7, Total Bilirubin 0.7, Aspartate Amino Transf (AST/SGOT) 23, Alanine Aminotransferase (ALT/SGPT) 8, Alkaline Phosphatase 98, Total Protein 6.2L, Albumin 3.2 Pending Labs Laboratory Tests 06/24/21 06:31: White Blood Count 7.7, Red Blood Count 2.68, Hemoglobin 7.9, Hematocrit 26, Mean Corpuscular Volume 96, Mean Corpuscular Hemoglobin 30, Mean Corpuscular Hemoglobin Concent 31, Red Cell Distribution Width 14.0, Platelet Count 323, Mean Platelet Volume 9.8, Immature Granulocyte % (Auto) 1, Neutrophils (%) (Auto) 68, Lymphocytes (%) (Auto) 14, Monocytes (%) (Auto) 13, Eosinophils (%) (Auto) 4, Basophils (%) (Auto) 1, Neutrophils # (Auto) 5.2, Lymphocytes # (Auto) 1.0, Monocytes # (Auto) 1.0, Eosinophils # (Auto) 0.3, Basophils # (Auto) 0.1, Immature Granulocyte # (Auto) 0.1, Sodium Level 140, Potassium Level 4.2, Chloride Level 101, Carbon Dioxide Level 30, Anion Gap 9, Blood Urea Nitrogen 18, Creatinine 0.85, Estimat Glomerular Filtration Rate 64, BUN/Creatinine Ratio 21, Glucose Level 108, Calcium Level 8.8, Corrected Calcium 9.5, Total Bilirubin 0.9, Aspartate Amino Transf (AST/SGOT) 22, Alanine Aminotransferase (ALT/SGPT) 11, Alkaline Phosphatase 89, Total Protein 6.0, Albumin 3.1 06/25/21 06:31: Iron Level 31, Vitamin B12 Level 1160 06/27/21 06:15: White Blood Count 9.7, Red Blood Count 2.73, Hemoglobin 8.2, Hematocrit 27, Mean Corpuscular Volume 97, Mean Corpuscular Hemoglobin 30, Mean Corpuscular Hemoglobin Concent 31, Red Cell Distribution Width 14.7, Platelet Count 396, Mean Platelet Volume 9.3, Sodium Level 140, Potassium Level 4.3, Chloride Level 101, Carbon Dioxide Level 29, Anion Gap 10, Blood Urea Nitrogen 14, Creatinine 0.81, Estimat Glomerular Filtration Rate 68, BUN/Creatinine Ratio 17, Glucose Level 94, Calcium Level 9.2 06/29/21 05:35: White Blood Count 8.3, Red Blood Count 2.69, Hemoglobin 8.2, Hematocrit 27, Mean Corpuscular Volume 101, Mean Corpuscular Hemoglobin 31, Mean Corpuscular Hemoglobin Concent 30, Red Cell Distribution Width 15.3, Platelet Count 383, Mean Platelet Volume 9.5, Immature Granulocyte % (Auto) 1, Neutrophils (%) (Auto) 66, Lymphocytes (%) (Auto) 18, Monocytes (%) (Auto) 11, Eosinophils (%) (Auto) 3, Basophils (%) (Auto) 1, Neutrophils # (Auto) 5.4, Lymphocytes # (Auto) 1.5, Monocytes # (Auto) 0.9, Eosinophils # (Auto) 0.3, Basophils # (Auto) 0.1, Immature Granulocyte # (Auto) 0.1, Sodium Level 141, Potassium Level 4.5, Chloride Level 101, Carbon Dioxide Level 30, Anion Gap 10, Blood Urea Nitrogen 13, Creatinine 0.89, Estimat Glomerular Filtration Rate 61, BUN/Creatinine Ratio 15, Glucose Level 102, Calcium Level 9.1, Corrected Calcium 9.7, Total Bilirubin 0.7, Aspartate Amino Transf (AST/SGOT) 23, Alanine Aminotransferase (ALT/SGPT) 8, Alkaline Phosphatase 98, Total Protein 6.2, Albumin 3.2 Discharge Home Medications: Active Scripts Active Tab-A-Michele Multivit with Iron (Multivitamin/Iron/Folic Acid) 1 Each Tablet 1 Ea PO DAILY@0700 Famotidine 20 Mg Tablet 20 Mg PO DAILY Stool Softener-Laxative Tablet (Sennosides/Docusate Sodium) 1 Each Tablet 2 Ea PO BID Percocet 5-325 mg Tablet (Oxycodone HCl/Acetaminophen) 1 Each Tablet 1 Tab PO Q2HR PRN Reported Xarelto (Rivaroxaban) 20 Mg Tablet 20 Mg PO DAILY K-Tab ER (Potassium Chloride) 10 Meq Tablet.er 20 Meq PO DAILY TAKE 2 (10MEQ) TABS Carvedilol 12.5 Mg Tablet 12.5 Mg PO BID Atorvastatin Calcium 20 Mg Tablet 20 Mg PO DAILY Dilt-Xr (Diltiazem HCl) 240 Mg Cap.er.deg 240 Mg PO DAILY Gabapentin 100 Mg Capsule 100 Mg PO BID Furosemide 20 Mg Tablet 20 Mg PO DAILY Levothyroxine Sodium 75 Mcg Tablet 75 Mcg PO DAILY Instructions to patient/family Please see electronic discharge instructions given to patient. Diagnosis/Problems Diagnosis/Problems (1) Status post right knee replacement (2) Acute respiratory failure with hypoxia Status: Acute (3) Paroxysmal A-fib Status: Chronic (4) HTN (hypertension) Status: Chronic (5) Hypothyroidism Status: Chronic (6) Hypertension Status: Acute DAYA VILLEGAS DO Jul 01, 2021 07:12
--- NOTE | 2021-07-01 08:20 | Cardiology Progress Note ---
Subjective Date Seen by Provider: Jul 01, 2021 Time Seen by Provider: 08:18 Subjective/Events-last exam Patient is sitting up in bed, no new complaints. Planning on discharge home today. Objective-Cardiology Exam Last Set of Vital Signs Vital Signs 06/26/21 07/01/21 08:57 12:00 Temp 37.1 Pulse 74 Resp 18 B/P (MAP) 124/58 Pulse Ox 91 O2 Delivery Room Air O2 Flow Rate 0.00 FiO2 94 General: Alert, Oriented X3, Cooperative HEENT: Atraumatic, PERRLA Neck: Supple, No JVD, No Thyromegaly Lungs: Clear to Auscultation, Normal Air Movement Heart: Regular Rate, Normal S1, Normal S2, No Murmurs Abdomen: Normal Bowel Sounds, Soft, No Tenderness, No Hepatosplenomegaly, No Masses Extremities: No Clubbing, No Cyanosis, No Edema Skin: No Rashes Neuro: Normal Speech, Sensation Intact Psych/Mental Status: Mental Status NL, Mood NL A/P-Cardiology Admission Diagnosis s/p Acute respiratory failure pneumonia CAD Assessment/Plan Status post acute respiratory insufficiency, resolved, feeling better. Not using oxygen at this time. Pneumonia, resolved, managed by primary care team Anemia, stable and slowly improving. Continue to monitor H/H Transient orthostatic hypotension after exercise, blood pressure is elevated today, I am hesitant to increase her blood pressure medication due to the orthostatic dizziness and hypotension. Continue to monitor blood pressure S/p R TKR, continue with PT/OT Coronary artery disease with history of stent to LAD. Underwent cardiac catheterization in July 2017 in [place] revealing patent stent with nonobstructive disease. Continue to monitor. History of severe aortic valve stenosis, status post TAVR done September 06, 2017 in [place] with uneventful deployment of a 26 mm Medtronic Evolut Pro. Most recent 2D Echo 10/12/18 revealing mechanical prothesis present in aortic valve. Peak gradient across prosthetic valve is 26 mmHg, mean gradient 13mmHg, calculated valve area 2.41 cm squared. Mild AR. there is perivalvular regurg, Mo d TR, Repeat 2D echo was done on June 20, 2021 showing moderate to severe LVH with normal systolic function, significant deterioration in the aortic valve with a peak gradient of 91 mmHg, valve area 1.4 cm. Mild mitral valve stenosis, pulmonary hypertension with PA pressure 50 to 55 mmHg Patient will need close monitoring and she probably will need another TAVR in the near future Paroxysmal atrial fibrillation, currently on Xarelto, Coreg and diltiazem. Continue to monitor Anemia, continue to monitor H/H. I will d/c ASA HTP- 2D Echo done June 2021 with PA 50-55mmHg. Mild bilateral carotid stenosis, history of syncope. Last ultrasound was done in July 2018, continue to monitor. Sick sinus syndrome, history of permanent pacemaker. Continue to monitor. HTN, mildly elevated, has been using Clonidine PRN for SBP >170. Continue to monitor. Hyperlipidemia, monitored as outpatient. Hypothyroidism, patient is maintained on amiodarone,continue to monitor. Supervisory-Addendum Brief Supervisory Addendum Participated in pt care: history, MDM, physical Personally performed: exam, history, MDM Care discussed with: ANUM Results interpretation: Verified all documentation Notes: Patient is going home today Arrange for follow-up as an outpatient and possible evaluation for TAVR Management was discussed with KIM Knox Jul 01, 2021 08:20 EDY GOOD MD Jul 01, 2021 14:53
[2021-07-01 08:25] VITALS: BP 124/58
[2021-07-01] MEDS: FAMOTIDINE 20 MG (PEPCID) TABLET PO SCH (08:39)
[2021-07-01] MEDS: RIVAROXABAN 20 MG TABLET (XARELTO) PO SCH (08:39)
[2021-07-01] MEDS: KCL 10 MEQ TAB (MICRO K) PO SCH (08:39)
[2021-07-01] MEDS: FUROSEMIDE 20 MG (LASIX) TAB PO SCH (08:39)
[2021-07-01] MEDS: LACTOBACILLUS ACIDOPHILUS (PROBIOTIC) CAPSULE PO SCH (08:39)
[2021-07-01] MEDS: GABAPENTIN 100 MG (NEURONTIN) CAP PO SCH (08:39)
[2021-07-01] MEDS: IRON SUCROSE 200 MG/10 ML (VENOFER) VIAL IV SCH (08:39)
--- NOTE | 2021-07-01 09:48 | Progress Note ---
Standard Progress Note Progress Notes/Assess & Plan Date Seen by a Provider: Jul 01, 2021 Time Seen by a Provider: 09:47 Progress/Assessment & Plan no complaints ambulating no calf tenderness s/p RTKA PT/OT Final Diagnosis no complaints RLE--incision clean and dry no calf tenderness s/p RTKA DC jose f home today FU two weeks ZO NEGRETE MD Jul 01, 2021 09:48
[2021-07-01] MEDS: polyethylene glycoL POWDER 17 GM (MIRALAX) PACK PO SCH ×2 (09:54)
[2021-07-01] MEDS: SENNA W/DOCUSATE (SENOKOT S) TABLET PO SCH ×2 (09:54)
[2021-07-01 12:00] VITALS: BP 124/58
--- NOTE | 2021-07-03 08:48 | Therapy Team Discharge Summary ---
Therapy Discharge Summary Discharge Recommendations Date of Discharge Jul 01, 2021 at 12:08 Occupational Therapy Pt admitted to ARU s/p R TKA. At PLOF, pt was independent with ADLs and funct ional mobility using 4WW. Upon initial evaluation, pt required set up assistance wtih eating and oral care, min A showering, SBA upper body dressing, min A lower body dressing, min A footwear and CGA toileting. OT tx focused on increasing BUE strength and activity tolerance, and increasing safety and independence with ADLs and functional mobility. At discharge, pt was independent with eating and oral care, SBA showering, set up upper body dressing, CGA lower body dressing, min A footwear and CGA toileting. Pt made progress towards goals, but only attained LTGs for eating and oral care. Pt discharged from facility, d/c from OT. Decreased Activ Tolerance, Impaired Self-Care Skills PT Usp Goals Reel System Operator Goals PT Usp Goals Time Frame: Jul 21, 2021 Roll Left to Right (QC): 6 Sit to Lying (QC): 6 Lying-Sitting on Side/Bed(QC): 6 Sit to Stand (QC): 6 Chair/Wwv-dg-Bhxhq Xfer(QC): 6 Car Transfer (QC): 6 Does the Patient Walk: Yes Walk 10 feet (QC): 6 Walk 10ft-Uneven Surface(QC): 6 Walk 50ft with 2 Turns (QC): 6 Walk 150 ft (QC): 6 Does the Pt use WC or Scooter?: Yes Wheel 50 feet with 2 turns (QC: 6 1 Step (curb) (QC): 5 4 Steps (QC): 5 12 Steps (QC): 5 Picking up an Object (QC): 6 OT Usp Goals Usp Goals Time Frame: Jul 17, 2021 Eating (QC): 6 (met) Oral Hygiene (QC): 6 (met) Shower/Bathe Self (QC): 5 (not met) Upper Body Dressing (QC): 6 (not met) Lower Body Dressing (QC): 6 (not met) On/Off Footwear (QC): 6 (not met) Toileting Hygiene (QC): 6 (not met) Toilet/Commode Transfer (QC): 6 Additional Goals: 1-Demonstrate ADL Tasks, 2-Verbalize Understanding, 3- ImproveStrength/Gilda 1=Demonstrate adherence to instructed precautions during ADL tasks. 2=Patient will verbalize/demonstrate understanding of assistive devices/modifi cations for ADL. 3=Patient will improve strength/tolerance for activity to enable patient to perform ADL's. Speech Usp Goals Usp Goals Patient will improve cognitive function abilities in order to return home with decreased assistance and safe. DOUG BRINK OT Jul 03, 2021 08:48
--- NOTE | 2021-07-03 09:26 | Therapy Team Discharge Summary ---
Therapy Discharge Summary Discharge Recommendations Date of Discharge Jul 01, 2021 at 12:08 Physical Therapy Pt in recliner and transfers to bed to complete bed mobility, amb to car and completes car transfer. Pt then completes stair training, amb on uneven surface, and picks up object from ground. Pt then completes NuStep, followed by standing exercises in // bars. Pt then performs seated exercises. Pt amb 200' on ARU and returns to room. Pt performs all bed mobility and transfers with Riley. Patient ambulates up to 200 feet with setup. Ascends/descends 12 steps with Setup. Patient demonstrates significant overall improvement and has met all STGs; all LTGs except stairs goals met. Occupational Therapy Decreased Activ Tolerance, Impaired Self-Care Skills PT Mcfp Goals Mcfp Goals PT Arcade Game Technician Goals Time Frame: Jul 21, 2021 Roll Left to Right (QC): 6 Sit to Lying (QC): 6 Lying-Sitting on Side/Bed(QC): 6 Sit to Stand (QC): 6 Chair/Cuu-io-Uivyo Xfer(QC): 6 Car Transfer (QC): 6 Does the Patient Walk: Yes Walk 10 feet (QC): 6 Walk 10ft-Uneven Surface(QC): 6 Walk 50ft with 2 Turns (QC): 6 Walk 150 ft (QC): 6 Does the Pt use WC or Scooter?: Yes Wheel 50 feet with 2 turns (QC: 6 1 Step (curb) (QC): 5 4 Steps (QC): 5 12 Steps (QC): 5 Picking up an Object (QC): 6 OT Mcfp Goals Arcade Game Technician Goals Time Frame: Jul 17, 2021 Eating (QC): 6 (met) Oral Hygiene (QC): 6 (met) Shower/Bathe Self (QC): 5 (not met) Upper Body Dressing (QC): 6 (not met) Lower Body Dressing (QC): 6 (not met) On/Off Footwear (QC): 6 (not met) Toileting Hygiene (QC): 6 (not met) Toilet/Commode Transfer (QC): 6 Additional Goals: 1-Demonstrate ADL Tasks, 2-Verbalize Understanding, 3- ImproveStrength/Gilda 1=Demonstrate adherence to instructed precautions during ADL tasks. 2=Patient will verbalize/demonstrate understanding of assistive devices/modifications for ADL. 3=Patient will improve strength/tolerance for activity to enable patient to perform ADL's. Speech Arcade Game Technician Goals Arcade Game Technician Goals Patient will improve cognitive function abilities in order to return home with decreased assistance and safe. JOAQUÍN BROOKS PT Jul 03, 2021 09:26
--- NOTE | 2021-07-09 11:42 | Physician Query Clarification ---
PQ-Intro New Diagnosis Admission/Discharge Admission Date: Jun 23, 2021 at 13:30 Discharge Date: Jul 01, 2021 at 12:08 Dr. Portillo, The medical record reflects the following clinical scenario: History/Risk Factors: s/p RT TKR, pneumonia, sepsis, acute hypoxic respiratory failure Clinical Findings: s/p RT TKR Treatment: rehab Question: What condition best reflects the above clinical scenario? Please document a response in the Progress Noter or Discharge Summary. 1. primary osteoarthritis rt knee 2. unknown condition responsible Rt TKR for IRF admision 3. Other, with explanation of the clinical findings. 4. Clinically undetermined, no explanation for the clinical findings. PHYSICIAN RESPONSE What condition reflects above: 1 Please remember a lack of response to the above will prompt a phone page by CDI/Coding staff. In responding to this query, please exercise your independent professional judgment. The purpose of this communication is to more accurately reflect the complexity of your patients condition. The fact that a question is asked does not imply that any particular answer is desired or expected. Thank you for your timely response to this clarification. Requestors name: Isidra THIS PHYSICIAN QUERY FORM IS A PERMANENT PART OF THE MEDICAL RECORD ISIDRA WAGNER Jul 09, 2021 11:42 DAYA PORTILLO DO Jul 09, 2021 21:10
== END 2021-07-01 12:08 | disposition home health service (06) | DRG 559 ==
PROVIDERS: ADMIT Internal Medicine; ATTEND Internal Medicine
DX: Z47.1 Aftercare following joint replacement surgery (principal); J18.9 Pneumonia, unspecified organism; J96.01 Acute respiratory failure with hypoxia; A41.9 Sepsis, unspecified organism; Z96.651 Presence of right artificial knee joint; Y95 Nosocomial condition; I48.0 Paroxysmal atrial fibrillation; I25.10 Atherosclerotic heart disease of native coronary artery without angina pectoris; I49.5 Sick sinus syndrome; E78.00 Pure hypercholesterolemia, unspecified; E78.5 Hyperlipidemia, unspecified; I11.0 Hypertensive heart disease with heart failure; I50.9 Heart failure, unspecified; F03.90 Unspecified dementia, unspecified severity, without behavioral disturbance, psychotic disturbance, mood disturbance, and anxiety; M19.91 Primary osteoarthritis, unspecified site; E03.9 Hypothyroidism, unspecified; H91.13 Presbycusis, bilateral; F32.A Depression, unspecified; I08.2 Rheumatic disorders of both aortic and tricuspid valves; I65.23 Occlusion and stenosis of bilateral carotid arteries; D64.9 Anemia, unspecified; I95.1 Orthostatic hypotension; Z87.891 Personal history of nicotine dependence; Z95.5 Presence of coronary angioplasty implant and graft; Z95.0 Presence of cardiac pacemaker; Z87.820 Personal history of traumatic brain injury; Z79.01 Long term (current) use of anticoagulants; Z88.0 Allergy status to penicillin; Z91.018 Allergy to other foods; Z97.4 Presence of external hearing-aid
CPT/HCPCS: 36415; 80048; 80053; 82607; 83540; 85025; 85027; 94640; 94760

== ENCOUNTER → 2021-08-12 | Outpatient (CLI) | payer MEDICARE ==
[~2021-08-12] MED LIST changes: +FAMO20TA5 PO; +MULT-1137 PO; +OXYC1TAB87 PO; +SENN1TAB76 PO
== END ==
LOC: CARD 10:00
PROVIDERS: ATTEND Internal Medicine Cardiovascular Disease
DX: I08.3 Combined rheumatic disorders of mitral, aortic and tricuspid valves (principal); I11.9 Hypertensive heart disease without heart failure
CPT/HCPCS: 93306

== ENCOUNTER 2021-09-29 12:52 | Inpatient (IN) | payer MEDICARE ==
[~2021-09-29] VITALS: Ht 175.6 cm; Wt 73.0 kg
[~2021-09-29 12:52] MED LIST changes: -DILT240C92 PO
[2021-09-29 13:25] LABS: BASOPHILS # (AUTO) 0.1 10^3/uL (0.0-0.1); BASOPHILS % (AUTO) 1 % (0-10); EOSINOPHILS # (AUTO) 0.3 10^3/uL (0.0-0.3); EOSINOPHILS % (AUTO) 3 % (0-10); HEMATOCRIT 36 % (35-52); HEMOGLOBIN 11.4 g/dL (11.5-16.0); LYMPHOCYTES # (AUTO) 2.3 10^3/uL (1.0-4.0); LYMPHOCYTES % (AUTO) 24 % (12-44); MEAN CORPUSCULAR HEMOGLOBIN 31 pg (25-34); MEAN CORPUSCULAR HGB CONC 32 g/dL (32-36); MEAN CORPUSCULAR VOLUME 97 fL (80-99); MEAN PLATELET VOLUME 9.9 fL (9.0-12.2); MONOCYTES # (AUTO) 0.8 10^3/uL (0.0-1.0); MONOCYTES % (AUTO) 8 % (0-12); NEUTROPHILS % (AUTO) 64 % (42-75); PLATELET COUNT 311 10^3/uL (130-400); WHITE BLOOD COUNT 9.4 10^3/uL (4.3-11.0)
[2021-09-29 13:38] LABS: INR 2.7 (0.8-1.4); PROTHROMBIN TIME PATIENT 29.3 SEC (12.2-14.7)
[2021-09-29 13:46] LABS: CREATININE SERUM 1.63 MG/DL (0.60-1.30)
[2021-09-29 13:55] LABS: CALCIUM 9.1 MG/DL (8.5-10.1); MAGNESIUM 1.9 MG/DL (1.6-2.4)
[2021-09-29 14:07] LABS: FREE T4 (FREE THYROXINE) 1.01 NG/DL (0.70-1.48)
--- NOTE | 2021-09-29 14:09 | Diagnostic Imaging Report ---
INDICATION: Elevated D-Dimer, SOA. TECHNIQUE: Multiple real-time grayscale images were obtained over the right lower extremity in various projections, bilaterally. Additional duplex Doppler and color Doppler images were also obtained. CORRELATION STUDY: 11/05/2020 FINDINGS: Color and grayscale sonographic images demonstrate no intraluminal defect within the visualized portion of the common femoral, superficial femoral and/or popliteal veins to suggest thrombus formation. These vessels demonstrate normal response to compression and augmentation. No soft tissue fluid collection. IMPRESSION: 1. Negative for deep venous thrombosis of the right leg. Dictated by: Dictated on workstation # [id number]
--- NOTE | 2021-09-29 14:46 | Diagnostic Imaging Report ---
INDICATION: Chest pain, tired, dizzy, shortness of breath. TECHNIQUE: Single view chest, 2:19 p.m. CORRELATION STUDY: 06/22/2021. FINDINGS: Left-sided dual-chamber pacemaker. Electronic device over the cardiac apex. Heart size is enlarged, stable. Aortic valve stent remains present. Vasculature is very slightly prominent. Lung batres are relatively clear at follow-up. Trace effusions, however, are not excluded. Findings compatible with likely prior traumatic change and deformity of the right humeral head. IMPRESSION: 1. Stable moderate severity cardiac enlargement without evidence of overt failure. Question of trace pleural effusions. Dictated by: Dictated on workstation # [id number]
[2021-09-29] MEDS ORDERED: KCL 10 MEQ TAB (MICRO K) PO ONE (15:00)
[2021-09-29] MEDS ORDERED: FUROSEMIDE 40 MG/4 ML INJ (LASIX) IVP ONE (15:00)
--- NOTE | 2021-09-29 16:19 | ED Chest Pain ---
General Chief Complaint: Cardiac/General Problems Stated Complaint: SOA Nursing Triage Note: PT TO ER BY WC WITH C/O TIRED, DIZZY, AND SOB. PT SEEN AT DR ABRAHAM OFFICE TODAY AND SENT TO ER AFTER LAB WORK FOR A POSS HEART ATTACK. Source: patient, other (Nurse practitioner at [facility]) Exam Limitations: no limitations History of Present Illness Date Seen by Provider: Sep 29, 2021 Time Seen by Provider: 13:06 Initial Comments This 80-year-old woman presents to the emergency room as directed by the nurse practitioner at Dr[facility] for reasons of chest pain, shortness of breath, diarrhea, and abnormal troponin and EKG obtained at the hospital earlier today. Patient was being seen for a follow-up appointment in the clinic for both shortness of breath and diarrhea. She had a recent right knee replacement by Dr. NEGRETE about a month ago. She has had diarrhea for about 3 weeks. She was sent to the hospital to obtain outpatient labs and an EKG. There were nonspecific ST changes on the EKG as well as a slightly elevated D-dimer. Patient was then directed to the emergency room. Patient states she had chest pain yesterday but none today. She is presently anticoagulated on Xarelto. Allergies and Home Medications Allergies Coded Allergies: Penicillins (Verified Allergy, Unknown, 06/23/21) pineapple (Verified Allergy, Unknown, 06/23/21) Patient Home Medication List Home Medication List Reviewed: Yes Atorvastatin Calcium (Atorvastatin Calcium) 20 Mg Tablet, 20 MG PO DAILY, (Reported) Entered as Reported by: KATRINA CRUZ on 09/09/20 1602 Carvedilol (Carvedilol) 12.5 Mg Tablet, 12.5 MG PO BID, (Reported) Entered as Reported by: SAJI COONEY on 10/06/20 1452 Diltiazem HCl (Dilt-Xr) 240 Mg Cap.er.deg, 240 MG PO DAILY, (Reported) Entered as Reported by: KATRINA CRUZ on 09/09/20 1557 Famotidine (Famotidine) 20 Mg Tablet, 20 MG PO DAILY Prescribed by: DAYA VILLEGAS on 06/30/218 Furosemide (Furosemide) 20 Mg Tablet, 20 MG PO DAILY, (Reported) Entered as Reported by: HAMIDA JENKINS on 11/07/18 1204 Gabapentin (Gabapentin) 100 Mg Capsule, 100 MG PO BID, (Reported) Entered as Reported by: HAMIDA JENKINS on 11/07/18 1232 Levothyroxine Sodium (Levothyroxine Sodium) 75 Mcg Tablet, 75 MCG PO DAILY, (Reported) Entered as Reported by: HAMIDA JENKINS on 11/07/18 1204 Multivitamin/Iron/Folic Acid (Tab-A-Michele Multivit with Iron) 1 Each Tablet, 1 EA PO DAILY@0700 Prescribed by: DAYA VILLEGAS on 06/30/212127 Oxycodone HCl/Acetaminophen (Percocet 5-325 mg Tablet) 1 Each Tablet, 1 TAB PO Q2HR PRN for PAIN-MODERATE (5-7) Prescribed by: DAYA VILLEGAS on 06/30/212128 Potassium Chloride (K-Tab ER) 10 Meq Tablet.er, 20 MEQ PO DAILY, (Reported) Entered as Reported by: SAJI COONEY on 10/06/20 1452 Rivaroxaban (Xarelto) 20 Mg Tablet, 20 MG PO DAILY, (Reported) Entered as Reported by: LIZZY WHEELER on 06/10/21 0956 Sennosides/Docusate Sodium (Stool Softener-Laxative Tablet) 1 Each Tablet, 2 EA PO BID Prescribed by: DAYA VILLEGAS on 06/30/212127 Review of Systems Review of Systems Constitutional: no symptoms reported EENTM: No Symptoms Reported Respiratory: See HPI Cardiovascular: See HPI Gastrointestinal: See HPI Genitourinary: No Symptoms Reported Musculoskeletal: see HPI Skin: no symptoms reported Psychiatric/Neurological: No Symptoms Reported Endocrine: No Symptoms Reported Hematologic/Lymphatic: No Symptoms Reported Past Ceqqfnz-Veshym-Qhhzxx Hx Patient Social History Tobacco Use?: No Substance use?: No Alcohol Use?: No Pt feels they are or have been: No Immunizations Up To Date Tetanus Booster (TDap): Unknown PED Vaccines UTD: No Influenza Vaccine Up-to-Date: Yes; Up-to-Date First/Initial COVID19 Vaccinat: october 2020 Second COVID19 Vaccination Darryl: november 2020 Third COVID19 Vaccination Date: MAY 2021 Seasonal Allergies Seasonal Allergies: Yes Past Medical History Surgery/Hospitalization HX: 1978 RTKR, 06/28 RTKR, ANKLE 2000, INGUINAL HERNIA REPAIR, INTROCCULAR IMPLANTS, PACEMAKER, STENTS , VALVULAR REPLACMENT Surgeries: Yes (RIGHT INGUINAL HERNIA REPAIR, 1979 RIGHT KNEE SURGERY, ANKLE 1999) Coronary Stent, Hysterectomy, Pacemaker Respiratory: No Tuberculosis Currently Using CPAP: No Currently Using BIPAP: No Cardiac: Yes (PACEMAKER, VALVE REPLACED) Atrial Fibrillation, Coronary Artery Disease, High Cholesterol, Hypertension Neurological: No Dementia, Traumatic Brain Injury Reproductive Disorders: No 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 No Pertinent Family Hx Physical Exam Vital Signs Vital Signs - First Documented 09/29/21 13:00 Temp 36.4 Pulse 158 Resp 20 B/P (MAP) 107/94 (98) Pulse Ox 96 O2 Delivery Room Air Capillary Refill : Height, Weight, BMI Height: 5'9.00" Weight: 171lbs. 9.0oz. 77.593707cu; 25.49 BMI Method:Stated Procedures/Interventions Date of ETT Placement: Sep 10, 2020 Time of ETT Placement: 929 Suture Size: 4-0 Progress/Results/Core Measures Results/Orders Lab Results Laboratory Tests Test 09/29/21 13:09 09/29/21 13:13 Range/Units Influenza Type A (RT-PCR) Not Detected Not Detecte Influenza Type B (RT-PCR) Not Detected Not Detecte SARS-CoV-2 RNA (RT-PCR) Not Detected Not Detecte White Blood Count 9.4 4.3-11.0 10^3/uL Red Blood Count 3.74 L 3.80-5.11 10^6/uL Hemoglobin 11.4 L 11.5-16.0 g/dL Hematocrit 36 35-52 % Mean Corpuscular Volume 97 80-99 fL Mean Corpuscular Hemoglobin 31 25-34 pg Mean Corpuscular Hemoglobin Concent 32 32-36 g/dL Red Cell Distribution Width 14.3 10.0-14.5 % Platelet Count 311 130-400 10^3/uL Mean Platelet Volume 9.9 9.0-12.2 fL Immature Granulocyte % (Auto) 0 % Neutrophils (%) (Auto) 64 42-75 % Lymphocytes (%) (Auto) 24 12-44 % Monocytes (%) (Auto) 8 0-12 % Eosinophils (%) (Auto) 3 0-10 % Basophils (%) (Auto) 1 0-10 % Neutrophils # (Auto) 6.0 1.8-7.8 10^3/uL Lymphocytes # (Auto) 2.3 1.0-4.0 10^3/uL Monocytes # (Auto) 0.8 0.0-1.0 10^3/uL Eosinophils # (Auto) 0.3 0.0-0.3 10^3/uL Basophils # (Auto) 0.1 0.0-0.1 10^3/uL Immature Granulocyte # (Auto) 0.0 0.0-0.1 10^3/uL Prothrombin Time 29.3 H 12.2-14.7 SEC INR Comment 2.7 H 0.8-1.4 Activated Partial Thromboplast Time 41 H 24-35 SEC Sodium Level 140 135-145 MMOL/L Potassium Level 3.0 L 3.6-5.0 MMOL/L Chloride Level 101 98-107 MMOL/L Carbon Dioxide Level 28 21-32 MMOL/L Anion Gap 11 5-14 MMOL/L Blood Urea Nitrogen 27 H 7-18 MG/DL Creatinine 1.63 H 0.60-1.30 MG/DL Estimat Glomerular Filtration Rate 31 BUN/Creatinine Ratio 17 Glucose Level 126 H 70-105 MG/DL Calcium Level 9.1 8.5-10.1 MG/DL Magnesium Level 1.9 1.6-2.4 MG/DL Myoglobin 61.3 10.0-92.0 NG/ML Troponin I 0.073 H <0.028 NG/ML C-Reactive Protein High Sensitivity 0.54 H 0.00-0.50 MG/DL B-Type Natriuretic Peptide 1378.8 H <100.0 PG/ML Thyroid Stimulating Hormone (TSH) 3.07 0.35-4.94 UIU/ML Free Thyroxine 1.01 0.70-1.48 NG/DL My Orders Orders - JOHN KERNS MD Basic Metabolic Panel (09/29/21 13:06) Cbc With Automated Diff (09/29/21 13:06) Magnesium (09/29/21 13:06) Troponin I Jade (09/29/21 13:06) Myoglobin Serum (09/29/21 13:06) Ed Iv/Invasive Line Start (09/29/21 13:06) Ekg Tracing (09/29/21 13:06) Monitor-Rhythm Ecg Trace Only (09/29/21 13:06) Protime With Inr (09/29/21 13:06) Partial Thromboplastin Time (09/29/21 13:06) Chest 1 View, Ap/Pa Only (09/29/21 13:14) Lipid Panel (09/30/21 06:00) Covid 19 Inhouse Test (09/29/21 13:14) Influenza A And B By Pcr (09/29/21 13:14) Bnp [place] (09/29/21 13:14) Hs C Reactive Protein (09/29/21 13:14) Us Venous Lower Ext Rt (09/29/21 13:16) Free T4 (Free Thyroxine) (09/29/21 13:26) Thyroid Stimulating Hormone (09/29/21 13:26) Potassium Chloride (Tablet) (Klor Con Ta (09/29/21 15:00) Furosemide Injection (Lasix Injection) (09/29/21 15:00) Code/Resuscitation (09/29/21 16:34) Medications Given in ED Current Medications Medications Dose Ordered Sig/Robbin Route Start Time Stop Time Status Last Admin Dose Admin Furosemide 40 mg ONCE ONCE IVP 09/29/21 15:00 09/29/21 15:01 DC 09/29/21 15:09 40 MG Potassium Chloride 40 meq ONCE ONCE PO 09/29/21 15:00 09/29/21 15:01 DC 09/29/21 15:09 40 MEQ Vital Signs/I&O 09/29/21 13:00 Temp 36.4 Pulse 158 Resp 20 B/P (MAP) 107/94 (98) Pulse Ox 96 O2 Delivery Room Air Blood Pressure Mean: 98 Progress Progress Note : Time: 16:17 Progress Note EKG demonstrated no STEMI. Ultrasound of the right lower extremity was obtained and was negative for DVT. Patient is already anticoagulated on Xarelto so there is not much concern for clotting disorders. Her BNP was significantly elevated suggesting some degree of heart failure which may be contributing to her shortness of breath. Influenza and Covid swabs were negative. She was found to be hypokalemic and replacement was started with an oral dose in the ER. A repeat troponin was obtained and there was no significant change. I discussed the case with Dr. Dixon who requested admission for observation overnight. Initial ECG Impression Date: Sep 29, 2021 Initial ECG Impression Time: 13:14 Initial ECG Rate: 111 Initial ECG Rhythm: A Fib/Flutter Comment Atrial fibrillation with mild tachycardia. No overt ST elevation or depression. LVH. Departure Communication (Admissions) Time/Spoke to Admitting Phy: 14:10 Dr. Mason Time/Spoke to Consulting Phy: 14:51 Dr. Dixon Impression Primary Impression: Chest pain Qualified Codes: R07.9 - Chest pain, unspecified Additional Impressions: Congestive heart failure Qualified Codes: I50.9 - Heart failure, unspecified Hypokalemia Atrial fibrillation Qualified Codes: I48.91 - Unspecified atrial fibrillation Disposition: ADMITTED INPATIENT Condition: Stable Admissions Decision to Admit Reason: Admit from ER (General) Decision to Admit/Date: Sep 29, 2021 Time/Decision to Admit Time: 14:51 Departure-Patient Inst. Referrals: JOAQUÍN PERERA MD (PCP/Family) Primary Care Physician JOHN KERNS MD Sep 29, 2021 16:19
--- NOTE | 2021-09-29 16:44 | Consultation-Cardiology ---
HPI-Cardiology Cardiology Consultation Date of Consultation 09/29/21 Date of Admission Time Seen by Provider: 16:39 Indication: Chest pain HPI 80-year-old lady with a history of severe aortic stenosis, coronary artery disease, paroxysmal atrial fibrillation. Patient was seen at her primary care physician's office and referred to the emergency room, has been having chest pain described as dull in nature on the left side of her chest associated with shortness of breath on exertion and feeling lightheaded and dizzy. No syncope. Went to the emergency room and noted to be borderline tachycardic. Currently not having active chest pain. Home Medications & Allergies Allergies: Coded Allergies: Penicillins (Verified Allergy, Unknown, 06/23/21) pineapple (Verified Allergy, Unknown, 06/23/21) Home Medication List Reviewed: Yes GXD-Syoafi-Glzveh Hx Patient Social History Marital Status: Recent Hopitalizations: No Have you traveled recently?: No Alcohol Use?: No Immunizations Up To Date Tetanus Booster (TDap): Unknown Date of Pneumonia Vaccine: Apr 12, 2018 Date of Influenza Vaccine: May 08, 2021 Past Medical History Discussed below Family Medical History Significant Family History: No Pertinent Family Hx Family Medical Hx Noncontributory Family History: Patient reports no known family medical history. Review of Systems-General Review of Systems Constitutional: see HPI, malaise, weakness EENTM: see HPI, no symptoms reported Respiratory: see HPI; No cough; dyspnea on exertion; No hemoptysis; orthopnea; No phlegm; short of breath; No stridor, No wheezing, No other Cardiovascular: see HPI, chest pain, edema; No Hx of Intervention; palpitations; No syncope, No vascular heart diseas, No other Gastrointestinal: no symptoms reported, see HPI Genitourinary: no symptoms reported, see HPI Musculoskeletal: see HPI Skin: no symptoms reported Psychiatric/Neurological: No Symptoms Reported Reviewed Test Results Reviewed Test Results Lab Laboratory Tests Test 09/29/21 13:09 09/29/21 13:13 Range/Units Influenza Type A (RT-PCR) Not Detected Not Detecte Influenza Type B (RT-PCR) Not Detected Not Detecte SARS-CoV-2 RNA (RT-PCR) Not Detected Not Detecte White Blood Count 9.4 4.3-11.0 10^3/uL Red Blood Count 3.74 L 3.80-5.11 10^6/uL Hemoglobin 11.4 L 11.5-16.0 g/dL Hematocrit 36 35-52 % Mean Corpuscular Volume 97 80-99 fL Mean Corpuscular Hemoglobin 31 25-34 pg Mean Corpuscular Hemoglobin Concent 32 32-36 g/dL Red Cell Distribution Width 14.3 10.0-14.5 % Platelet Count 311 130-400 10^3/uL Mean Platelet Volume 9.9 9.0-12.2 fL Immature Granulocyte % (Auto) 0 % Neutrophils (%) (Auto) 64 42-75 % Lymphocytes (%) (Auto) 24 12-44 % Monocytes (%) (Auto) 8 0-12 % Eosinophils (%) (Auto) 3 0-10 % Basophils (%) (Auto) 1 0-10 % Neutrophils # (Auto) 6.0 1.8-7.8 10^3/uL Lymphocytes # (Auto) 2.3 1.0-4.0 10^3/uL Monocytes # (Auto) 0.8 0.0-1.0 10^3/uL Eosinophils # (Auto) 0.3 0.0-0.3 10^3/uL Basophils # (Auto) 0.1 0.0-0.1 10^3/uL Immature Granulocyte # (Auto) 0.0 0.0-0.1 10^3/uL Prothrombin Time 29.3 H 12.2-14.7 SEC INR Comment 2.7 H 0.8-1.4 Activated Partial Thromboplast Time 41 H 24-35 SEC Sodium Level 140 135-145 MMOL/L Potassium Level 3.0 L 3.6-5.0 MMOL/L Chloride Level 101 98-107 MMOL/L Carbon Dioxide Level 28 21-32 MMOL/L Anion Gap 11 5-14 MMOL/L Blood Urea Nitrogen 27 H 7-18 MG/DL Creatinine 1.63 H 0.60-1.30 MG/DL Estimat Glomerular Filtration Rate 31 BUN/Creatinine Ratio 17 Glucose Level 126 H 70-105 MG/DL Calcium Level 9.1 8.5-10.1 MG/DL Magnesium Level 1.9 1.6-2.4 MG/DL Myoglobin 61.3 10.0-92.0 NG/ML Troponin I 0.073 H <0.028 NG/ML C-Reactive Protein High Sensitivity 0.54 H 0.00-0.50 MG/DL B-Type Natriuretic Peptide 1378.8 H <100.0 PG/ML Thyroid Stimulating Hormone (TSH) 3.07 0.35-4.94 UIU/ML Free Thyroxine 1.01 0.70-1.48 NG/DL Physical Exam Physical Exam Vital Signs Vital Signs - First Documented 09/29/21 13:00 Temp 36.4 Pulse 158 Resp 20 B/P (MAP) 107/94 (98) Pulse Ox 96 O2 Delivery Room Air Capillary Refill : Height, Weight, BMI Height: 5'9.00" Weight: 171lbs. 9.0oz. 77.973831bn; 25.49 BMI Method:Stated General Appearance: No Apparent Distress, WD/WN Eyes: Bilateral Eye Normal Inspection, Bilateral Eye PERRL, Bilateral Eye EOMI HEENT: PERRL/EOMI, TMs Normal, Normal ENT Inspection, Pharynx Normal, Moist Mucous Membranes Neck: Full Range of Motion, Normal Inspection, Non Tender, Supple, Carotid Bruit Respiratory: Chest Non Tender, Normal Breath Sounds, No Accessory Muscle Use, No Respiratory Distress Cardiovascular: No Edema, No JVD, Normal Peripheral Pulses, Systolic Murmur, Gallop/S3, Irregularly Irregular, Tachycardia Gastrointestinal: Normal Bowel Sounds, No Organomegaly, No Pulsatile Mass, Non Tender, Soft Back: Normal Inspection, No CVA Tenderness, No Vertebral Tenderness Extremity: Normal Capillary Refill, Normal Inspection, Normal Range of Motion, Non Tender, No Calf Tenderness, Pedal Edema Neurologic/Psychiatric: Alert, Oriented x3, No Motor/Sensory Deficits, Normal Mood/Affect Skin: Normal Color, Warm/Dry Lymphatic: No Adenopathy A/P-Cardiology Admission Diagnosis Chest pain Non-ST elevation myocardial infarction Coronary artery disease Aortic valve stenosis Assessment/Plan Chest pain, mild elevation in troponin, non-ST elevation myocardial infarction, history of coronary artery disease with a stent to the LAD, last cardiac cathet erization was done in 2017 in [place] reporting that she had a patent stent. I am planning to proceed with coronary angiograph and evaluate for possible aortic valve replacement. Atrial fibrillation with rapid ventricular response, history of paroxysmal atrial fibrillation maintained on Xarelto, Coreg and diltiazem. Usually her rate is better controlled. Restart home medication and monitor tolerance and response. History of severe aortic valve stenosis, status post TAVR done September 06, 2017 in [place] with uneventful deployment of a 26 mm Medtronic Evolut Pro. Most recent 2D Echo 10/12/18 revealing mechanical prothesis present in aortic valve. Peak gradient across prosthetic valve is 26 mmHg, mean gradient 13mmHg, calculated valve area 2.41 cm squared. Mild AR. there is perivalvular regurg, Mod TR, Repeat 2D echo was done on June 20, 2021 showing moderate to severe LVH with normal systolic function, significant deterioration in the aortic valve with a peak gradient of 91 mmHg, valve area 1.4 cm. Mild mitral valve stenosis, pulmonary hypertension with PA pressure 50 to 55 mmHg I will repeat 2D echocardiogram and consider referral for redo TAVR Anemia, continue to monitor H/H HTP- 2D Echo done June 2021 with PA 50-55mmHg. Mild bilateral carotid stenosis, history of syncope. Last ultrasound was done in July 2018, continue to monitor. Sick sinus syndrome, history of permanent pacemaker. Continue to monitor. Hypertension, labile blood pressure, difficult to control. Has been using clonidine as needed. Monitor blood pressure. Hyperlipidemia, monitored as outpatient. Hypothyroidism, monitor TSH EDY GOOD MD Sep 29, 2021 16:44
[2021-09-29 17:30] VITALS: BP 117/72
[2021-09-29] MEDS ORDERED: MELATONIN 3 MG TABLET PO PRN (17:30)
[2021-09-29] MEDS ORDERED: ANTACID SUSP 30 ML UDC (MYLANTA) PO PRN (17:30)
[2021-09-29] MEDS ORDERED: ONDANSETRON 4 MG (ZOFRAN) ORAL DISSOLVE TAB PO PRN (17:30)
[2021-09-29] MEDS ORDERED: ONDANSETRON 4 MG/2 ML (SDV) Z0FRAN IV PRN (17:30)
[2021-09-29] MEDS ORDERED: polyethylene glycoL POWDER 17 GM (MIRALAX) PACK PO PRN (17:30)
[2021-09-29] MEDS ORDERED: KCL 20 MEQ TAB (K-DUR) PO NR (17:30)
[2021-09-29] MEDS ORDERED: ACETAMINOPHEN 325 MG TABLET PO PRN (17:30)
[2021-09-29 18:48] VITALS: BP 107/84
[2021-09-29] MEDS ORDERED: RT-ALBUTEROL/IPRATROPIUM 3 ML (DUONEB) VIAL INH PRN (19:00)
[2021-09-29 19:47] VITALS: BP 114/63
[2021-09-29] MEDS: GABAPENTIN 100 MG (NEURONTIN) CAP PO SCH (20:51)
[2021-09-29] MEDS: FAMOTIDINE 20 MG (PEPCID) TABLET PO SCH (20:52)
[2021-09-30 00:07] VITALS: BP 133/69
[2021-09-30 03:45] VITALS: BP 116/57
[2021-09-30 05:35] LABS: POTASSIUM 3.7 MMOL/L (3.6-5.0)
[2021-09-30 05:37] LABS: CALCIUM 8.5 MG/DL (8.5-10.1)
[2021-09-30 05:41] LABS: CREATININE SERUM 1.5 MG/DL (0.60-1.30)
[2021-09-30] MEDS: LEVOTHYROXINE 75 MCG (LEVOTHROID) TABLET PO SCH (06:24)
[2021-09-30] MEDS ORDERED: FUROSEMIDE 40 MG/4 ML INJ (LASIX) IVP ONE (08:00)
[2021-09-30 08:11] VITALS: BP 116/62
[2021-09-30] MEDS ORDERED: HEParin (CATH LAB) 2,000 ML IV ONE (09:01)
[2021-09-30] MEDS ORDERED: LIDOCAINE 1% INJ 20 ML VIAL ONE (09:01)
[2021-09-30] MEDS ORDERED: HEParin 1000 UNIT/ML (10ML VIAL) FOR BOLUS ONE (09:36)
[2021-09-30] MEDS ORDERED: fentaNYL INJ 100 MCG/2 ML AMP ONE (09:36)
[2021-09-30] MEDS ORDERED: VERAPAMIL 5 MG/2 ML (CALAN) VIAL IV ONE (09:36)
[2021-09-30] MEDS ORDERED: MIDAZOLAM 5 MG/5 ML (VERSED) VIAL ONE (09:36)
[2021-09-30] MEDS ORDERED: NITRO DRIP 25000 MCG/D5W 0 ML IV ONE (09:37)
--- NOTE | 2021-09-30 09:51 | Conscious Sedation/ASA ---
Conscious Sedation Pre-Proced Time 09:51 ASA Score 3 For ASA 3 and 4: Consider anesthesia and medical clearance. Also, for patients with a history of failed moderate sedation consider anesthesia. Airway Lungs Heart ASA score ASA 1: a normal healthy patient ASA 2: a patient with a mild systemic disease (mid diabetes, controlled hypertension, obesity x ASA 3: a patient with a severe systemic disease that limits activity (angina, COPD, prior Myocardial infarction) ASA 4: a patient with an incapacitating disease that is a constant threat to life (CHF, renal failure) ASA 5: a moribund patient not expected to survive 24 hrs. (ruptured aneurysm) ASA 6: a declared brain- patient whose organs are being harvested. For emergent operations, add the letter E after the classification Mallampati Classification Grade 3 Sedation Plan Analgesia, Amnesia, Plan communicated to team members, Discussed options with patient/fam, Discussed risks with patient/fam The patient is an appropriate candidate to undergo the planned procedure, sedation, and anesthesia. The patient immediately re-assessed prior to indication. EDY GOOD MD Sep 30, 2021 09:51
--- NOTE | 2021-09-30 09:54 | Cardiology Progress Note ---
Subjective Date Seen by Provider: Sep 30, 2021 Time Seen by Provider: 09:51 Subjective/Events-last exam Patient was seen at bedside, sitting comfortably, mild shortness of breath. Improvement in her chest pain. Review of Systems General: No Chills, No Night Sweats, No Fatigue, No Malaise, No Appetite, No Other HEENT: No Head Aches, No Visual Changes, No Eye Pain, No Ear Pain, No Dysphasia, No Sinus Congestion, No Post Nasal Drip, No Sore Throat, No Other Pulmonary: Dyspnea; No Cough, No Pleuritic Chest Pain, No Other Cardiovascular: No: Chest Pain, Palpitations, Orthopnea, Paroxysmal Noc. Dyspnea, Edema, Lt Headedness, Other Objective-Cardiology Exam Last Set of Vital Signs Vital Signs 09/29/21 09/30/21 18:48 08:11 Temp 36.8 Pulse 60 Resp 16 B/P (MAP) 116/62 (80) Pulse Ox 94 O2 Delivery Room Air FiO2 21 I&O Intake and Output 09/30/21 00:00 Intake Total 400 ml Output Total 350 ml Balance 50 ml Intake Oral 400 ml Output Urine Total 350 ml # Voids 1 Daily Weight Change Yes, 14-23 lbs General: Alert, Oriented X3, Cooperative HEENT: Atraumatic, PERRLA Neck: Supple, No JVD, No Thyromegaly Lungs: Normal Air Movement, Other (Bilateral rhonchi) Heart: Normal S1, Normal S2, Other (Atrial fibrillation, systolic murmur at the left sternal border) Abdomen: Normal Bowel Sounds, Soft, No Tenderness, No Hepatosplenomegaly, No Masses Extremities: No Clubbing, No Cyanosis, No Edema, Normal Pulses, No Tenderness/Swelling Skin: No Rashes, No Breakdown, No Significant Lesion Neuro: Normal Gait, Normal Speech, Strength at 5/5 X4 Ext, Normal Tone, Sensati on Intact Psych/Mental Status: Mental Status NL, Mood NL Results Lab Laboratory Tests 09/29/21 13:13 09/30/21 05:16 A/P-Cardiology Admission Diagnosis Chest pain Non-ST elevation myocardial infarction Coronary artery disease Aortic valve stenosis Assessment/Plan Chest pain, mild elevation in troponin, non-ST elevation myocardial infarction, history of coronary artery disease with a stent to the LAD, last cardiac catheterization was done in 2017 in [place] reporting that she had a patent stent. I am planning to proceed with cardiac catheterization possible PTCA Atrial fibrillation with rapid ventricular response, history of paroxysmal atrial fibrillation maintained on Xarelto, Coreg and diltiazem. Usually her rate is better controlled. Restart home medication and monitor tolerance and response. History of severe aortic valve stenosis, status post TAVR done September 06, 2017 in [place] with uneventful deployment of a 26 mm Medtronic Evolut Pro. Most recent 2D Echo 10/12/18 revealing mechanical prothesis present in aortic valve. Peak gradient across prosthetic valve is 26 mmHg, mean gradient 13mmHg, calculated valve area 2.41 cm squared. Mild AR. there is perivalvular regurg, Mod TR, Repeat 2D echo was done on June 20, 2021 showing moderate to severe LVH with normal systolic function, significant deterioration in the aortic valve with a peak gradient of 91 mmHg, valve area 1.4 cm. Mild mitral valve stenosis, pulmonary hypertension with PA pressure 50 to 55 mmHg Repeat 2D echo showed peak gradient of 23 mmHg, mean gradient of 12 mmHg, which is similar to the finding of August 2020, I feel that the echo finding on June 2021 were erroneously high. Patient has severe left ventricular hypertrophy. Congestive heart failure, acute on chronic left ventricular diastolic dysfunction with severe left ventricular hypertrophy, responding to diuretics. Anemia, continue to monitor H/H Pulmonary hypertension, repeat 2D echo. Mild bilateral carotid stenosis, history of syncope. Last ultrasound was done in July 2018, continue to monitor. Sick sinus syndrome, history of permanent pacemaker. Continue to monitor. Hypertension, labile blood pressure, difficult to control. Has been using clonidine as needed. Monitor blood pressure. Hyperlipidemia, monitored as outpatient. Hypothyroidism, monitor TSH EDY GOOD MD Sep 30, 2021 09:54
[2021-09-30] MEDS ORDERED: NS IV 1000 ML 1,000 ML ONE (10:03)
--- NOTE | 2021-09-30 10:44 | Cardiac Cath Report ---
Cardiac Cath Report Physician (s)/Maintenance Apprentice (s) Physician EDY GOOD MD Pre-Procedure Diagnosis Pre-Procedure Diagnosis: Non-ST elevation myocardial infarction Post-Procedure Note Procedure Start Date: Sep 30, 2021 Name of Procedure: Left heart catheterization Findings/Procedure Note PROCEDURE NOTE: 80-year-old lady with history of TAVR, coronary artery disease, stenting of the LAD, atrial fibrillation, admitted with chest pain or shortness of breath, had mild elevation in troponin. Cardiac catheterization was advised. After explaining the procedure to the patient, all pros and cons were explained, all questions were answered. The patient signed the consent and then she was placed on the cardiac catheterization laboratory. Groin was prepped SL fashion local anesthesia was used. Sheath placed in the right femoral artery. Carina right and left catheter were used to access the coronary system. Carina right prolapsed to the left ventricular cavity Left ventriculogram was not done At the end of the procedure the sheath was removed. Closure device was used FINDINGS: Hemodynamics LV 127/23, end-diastolic pressure of 23 Aorta 114/76 mean of 89 During pullback there was 10 mm of gradient across the aortic valve ANATOMY: Left Main is free of obstructive disease Left Anterior Descending is tortuous artery with mild disease, patent stent, nonobstructive disease Left Circumflex has mild disease nonobstructive disease Right Coronary Artery is dominant artery with mild disease nonobstructive diseas e LV Gram was not done, pressure was measured CONCLUSION: 1. Torturous coronary system with patent stent in the mid LAD, mild disease nonobstructive disease in the coronary system 2. Fluoroscopy of prosthetic aortic valve showed struts of TAVR. There was a small gradient across the valve of 10 mmHg DISCUSSION AND RECOMMENDATION: Continue with medical therapy, elevated troponin is probably due to small vessel disease and atrial fibrillation with rapid ventricular response Anesthesia Type: Conscious Sedation Estimated blood loss (mL): 15 ml Contrast Amount: 38 ml Total Radiation Dose: 215 mGy Post-Procedure Diagnosis Post-operative diagnosis: Chest pain Coronary artery disease Aortic valve stenosis Hypertension EDY GOOD MD Sep 30, 2021 10:44
[2021-09-30] MEDS: NS IV 1000 ML 1,000 ML IV SCH ×2 (10:45→20:17)
[2021-09-30] MEDS ORDERED: PATIENT MAY USE OWN MEDS, ALL PO SCH (10:45)
[2021-09-30] MEDS: GABAPENTIN 100 MG (NEURONTIN) CAP PO SCH ×2 (11:15→20:12)
[2021-09-30] MEDS ORDERED: DILT240C92 PO (15:57)
[2021-09-30 16:00] VITALS: BP 136/72
[2021-09-30] MEDS: RIVAROXABAN 20 MG TABLET (XARELTO) PO SCH (18:18)
[2021-09-30] MEDS: FUROSEMIDE 40 MG/4 ML INJ (LASIX) IVP SCH (18:19)
[2021-09-30 20:00] VITALS: BP 164/70
[2021-09-30] MEDS: FAMOTIDINE 20 MG (PEPCID) TABLET PO SCH (20:12)
--- NOTE | 2021-09-30 21:01 | History & Physical-Hospitalist ---
History of Present Illness HPI/Chief Complaint Corina Baker is an 80 year old female with PMH HTN, HLD, CAD, AFib, aortic stenosis s/p TAVR, HFpEF, CKD, who presented with chest pain. She was also having shortness of breath. She had been feeling lightheaded and dizzy. Source: patient Exam Limitations: no limitations Date Seen 09/30/21 Time Seen by a Provider: 11:30 Attending Physician Noe Marquez MD PCP Osman Prather MD Referring Physician Date of Admission Sep 29, 2021 at 16:58 Home Medications & Allergies Home Medications Reviewed patient Home Medication Reconciliation performed by pharmacy medication reconciliations body technician/painter and/or nursing. Patients Allergies have been reviewed. Allergies Allergies Coded Allergies Penicillins (Verified Allergy, Unknown, 06/23/21) pineapple (Verified Allergy, Unknown, 06/23/21) Past Hihkdgo-Dxucpq-Rwakvn Hx Patient Social History Marrital Status: Tobacco Use?: No Substance use?: No Alcohol Use?: No Pt feels they are or have been: No Immunizations Up To Date Date of Influenza Vaccine: May 08, 2021 First/Initial COVID19 Vaccinat: october 2020 Second COVID19 Vaccination Darryl: november 2020 Tetanus Booster (TDap): Unknown Hepatitis A: No Hepatitis B: No PED Vaccines UTD: No Date of Pneumonia Vaccine: Apr 12, 2018 Seasonal Allergies Seasonal Allergies: Yes Current Status status: No Primary Language: Yi Preferred Spoken Language: Yi Is interpretation needed?: No Sensory deficits: Hearing impairment Implanted or Applied Medical D: Pacemaker, Stents Past Medical History Surgeries: Coronary Stent, Hysterectomy, Pacemaker Tuberculosis Currently Using CPAP: No Currently Using BIPAP: No Atrial Fibrillation, Coronary Artery Disease, High Cholesterol, Hypertension Dementia, Traumatic Brain Injury DISTRIBUTION SPEC History: Hysterectomy Sexually Transmitted Disease: No HIV/AIDS: No Arthritis, Chronic Back Pain Hypothyroidsim Cataract Hearing Impairment: Hard of Hearing, Hearing Aide Right, Hearing Aide Left Blood Disorders: No Adverse Reaction/Blood Tranf: No Family Medical History Patient reports no known family medical history. No Pertinent Family Hx Review of Systems Constitutional: dizziness EENTM: no symptoms reported Respiratory: short of breath Cardiovascular: chest pain Gastrointestinal: no symptoms reported Musculoskeletal: no symptoms reported Skin: no symptoms reported Psychiatric/Neurological: No Symptoms Reported Physical Exam Physical Exam Vital Signs Vital Signs - First Documented 09/29/21 09/29/21 13:00 18:48 Temp 36.4 Pulse 158 Resp 20 B/P (MAP) 107/94 (98) Pulse Ox 96 O2 Delivery Room Air FiO2 21 Capillary Refill : Less Than 3 Seconds Height, Weight, BMI Height: 5'9.00" Weight: 171lbs. 9.0oz. 77.058431ig; 23.67 BMI Method:Stated General Appearance: No Apparent Distress, Chronically ill Respiratory: Lungs Clear, No Respiratory Distress Cardiovascular: Regular Rate, Rhythm, No Murmur Gastrointestinal: Normal Bowel Sounds, Soft Extremity: Normal Inspection, Pedal Edema Neurologic/Psychiatric: Alert, Normal Mood/Affect Skin: Normal Color, Warm/Dry Results Results/Procedures Labs Laboratory Tests 09/29/21 13:13 09/30/21 05:16 Patient resulted labs reviewed. Imaging: Reviewed Imaging Report Assessment/Plan Admission Diagnosis Chest pain Admission Status: Observation Reason for Inpatient Admission: CHF Assessment and Plan Chest pain CAD Aortic stenosis Cardiology consulted Left heart cath today HFpEF Lasix HTN HLD AFib pHTN Continue home meds Diagnosis/Problems Diagnosis/Problems (1) Chest pain Status: Acute Qualifiers: Chest pain type: unspecified Qualified Codes: R07.9 - Chest pain, unspecified (2) Acute on chronic heart failure with preserved ejection fraction (HFpEF) Status: Acute NOE MARQUEZ MD Sep 30, 2021 21:01
[2021-10-01 00:19] VITALS: BP 136/91
[2021-10-01 03:39] VITALS: BP_SYST 131; BP_SYST 136; BP_DIAS 75; BP_DIAS 91
[2021-10-01 06:08] LABS: HEMATOCRIT 33 % (35-52); HEMOGLOBIN 10.4 g/dL (11.5-16.0); MEAN CORPUSCULAR HEMOGLOBIN 31 pg (25-34); MEAN CORPUSCULAR HGB CONC 31 g/dL (32-36); MEAN CORPUSCULAR VOLUME 98 fL (80-99); MEAN PLATELET VOLUME 10.1 fL (9.0-12.2); PLATELET COUNT 236 10^3/uL (130-400); WHITE BLOOD COUNT 8.6 10^3/uL (4.3-11.0)
[2021-10-01] MEDS: LEVOTHYROXINE 75 MCG (LEVOTHROID) TABLET PO SCH (06:21)
[2021-10-01] MEDS: FUROSEMIDE 40 MG/4 ML INJ (LASIX) IVP SCH ×2 (06:22→17:08)
[2021-10-01 06:32] LABS: POTASSIUM 3.5 MMOL/L (3.6-5.0)
[2021-10-01 06:34] LABS: CALCIUM 8.4 MG/DL (8.5-10.1)
[2021-10-01 06:38] LABS: CREATININE SERUM 1.03 MG/DL (0.60-1.30)
[2021-10-01] MEDS: NS IV 1000 ML 1,000 ML IV SCH (06:59)
[2021-10-01 07:26] VITALS: BP 145/66
--- NOTE | 2021-10-01 08:32 | Cardiology Progress Note ---
Subjective Date Seen by Provider: Oct 01, 2021 Time Seen by Provider: 08:30 Subjective/Events-last exam Patient is laying down in bed. Complaining of significant diarrhea. No chest pain Review of Systems General: No Chills, No Night Sweats; Fatigue, Malaise; No Appetite, No Other HEENT: No Head Aches, No Visual Changes, No Eye Pain, No Ear Pain, No Dysphasia, No Sinus Congestion, No Post Nasal Drip, No Sore Throat, No Other Pulmonary: No Dyspnea, No Cough, No Pleuritic Chest Pain, No Other Cardiovascular: No: Chest Pain, Palpitations, Orthopnea, Paroxysmal Noc. Dyspnea, Edema, Lt Headedness, Other Objective-Cardiology Exam Last Set of Vital Signs Vital Signs 09/29/21 10/01/21 18:48 07:26 Temp 37.1 Pulse 109 Resp 18 B/P (MAP) 145/66 (92) Pulse Ox 95 O2 Delivery Room Air FiO2 21 I&O Intake and Output 10/01/21 00:00 Intake Total 640 ml Output Total 600 ml Balance 40 ml Intake Oral 640 ml Output Urine Total 600 ml # Voids 2 # Bowel Movements 1 General: Alert, Oriented X3, Cooperative HEENT: Atraumatic, PERRLA Neck: Supple, No JVD, No Thyromegaly Lungs: Clear to Auscultation, Normal Air Movement Heart: Normal S1, Normal S2, Other (Atrial fibrillation, systolic murmur at the left sternal border) Abdomen: Normal Bowel Sounds, Soft, No Tenderness, No Hepatosplenomegaly, No Masses Extremities: No Clubbing, No Cyanosis, No Edema, Normal Pulses, No Tenderness/Swelling Skin: No Rashes, No Breakdown, No Significant Lesion Neuro: Normal Gait, Normal Speech, Strength at 5/5 X4 Ext, Normal Tone, Sensation Intact Psych/Mental Status: Mental Status NL, Mood NL Results Lab Laboratory Tests 10/01/21 05:50 A/P-Cardiology Admission Diagnosis Chest pain Non-ST elevation myocardial infarction Coronary artery disease Aortic valve stenosis Assessment/Plan Chest pain, mild elevation in troponin, non-ST elevation myocardial infarction, history of coronary artery disease with a stent to the LAD, cardiac catheterization was carried out on September 30, 2021 showing patent stents with mild coronary artery disease nonobstructive disease Atrial fibrillation with rapid ventricular response, history of paroxysmal atrial fibrillation maintained on Xarelto, Coreg and diltiazem. Heart rate better controlled. Continue to monitor Diarrhea, patient had 4-5 bowel movement last night, watery diarrhea. Managed by primary care physician History of severe aortic valve stenosis, status post TAVR done September 06, 2017 in [place] with uneventful deployment of a 26 mm Medtronic Evolut Pro. Most recent 2D Echo 10/12/18 revealing mechanical prothesis present in aortic valve. Peak gradient across prosthetic valve is 26 mmHg, mean gradient 13mmHg, calculated valve area 2.41 cm squared. Mild AR. there is perivalvular regurg, Mod TR, Repeat 2D echo was done on June 20, 2021 showing moderate to severe LVH with normal systolic function, significant deterioration in the aortic valve with a peak gradient of 91 mmHg, valve area 1.4 cm. Mild mitral valve stenosis, pulmonary hypertension with PA pressure 50 to 55 mmHg Repeat 2D echo showed peak gradient of 23 mmHg, mean gradient of 12 mmHg, which is similar to the finding of August 2020, I feel that the echo finding on June 2021 were erroneously high. Patient has severe left ventricular hypertrophy. Congestive heart failure, acute on chronic left ventricular diastolic dysf unction with severe left ventricular hypertrophy, responding to diuretics. Anemia, continue to monitor H/H Pulmonary hypertension, repeat 2D echo. Mild bilateral carotid stenosis, history of syncope. Last ultrasound was done in July 2018, continue to monitor. Sick sinus syndrome, history of permanent pacemaker. Continue to monitor. Hypertension, labile blood pressure, difficult to control. Has been using clonidine as needed. Monitor blood pressure. Hyperlipidemia, monitored as outpatient. Hypothyroidism, monitor TSH EDY GOOD MD Oct 01, 2021 08:32
[2021-10-01] MEDS: GABAPENTIN 100 MG (NEURONTIN) CAP PO SCH ×2 (08:39→19:47)
[2021-10-01 11:12] VITALS: BP 131/70
--- NOTE | 2021-10-01 14:04 | Physical Therapy Evaluation ---
PT Evaluation-General Medical Diagnosis Admission Date Sep 29, 2021 at 16:58 Medical Diagnosis: Chest pain, CHF Onset Date: Sep 29, 2021 Therapy Diagnosis Therapy Diagnosis: weakness debility Height/Weight Height (Feet): 5 Height (Inches): 9.00 Weight (Pounds): 171 Weight (Ounces): 9.0 Precautions Precautions/Isolations: Fall Prevention, Standard Precautions Referral Physician: Tristan Reason for Referral: Evaluation/Treatment Medical History Pertinent Medical History: Atrial Fib, CAD, Heart Failure, HTN, Hypothroidism Additional Medical History right TKR 2 months ago Current History Patient presented to ED with chest pain and SOA. Reviewed History: Yes Social History Home: Single Level Current Living Status: Significant Other Entry Into Home: Stairs With Railing PT Steps Into Home: 3 Prior Prior Level of Function SCALE: Activities may be completed with or without assistive devices. 5-Gpocewyqeo-adjhqzg completes the activity by him/herself with no assistance from a helper. 5-Set-up or Clean-up Assistance-helper sets up or cleans up; patient completes activity. [place] assists only prior to or following the activity. 4-Supervision or Touching Assistance-helper provides verbal cues and/or touching/steadying and/or contact guard assistance as patient completes activity. Assistance may be provided throughout the activity or intermittently. 3-Partial/Moderate Assistance-helper does LESS THAN HALF the effort. [place] lifts, holds or supports trunk or limbs, but provides less than half the effort. 2-Substantial/Maximal Assistance-helper does MORE THAN HALF the effort. [place] lifts or holds trunk or limbs and provides more than half the effort. 8-Yavkqctnd-oqgkca does ALL the effort. Patient does none of the effort to complete the activity. Or, the assistance of 2 or more helpers is required for the patient to complete the activity. If activity was not attempted, code reason: 7-Patient Refused. 9-Not Applicable-not attempted and the patient did not perform the activity before the current illness, exacerbation or injury. 10-Not Attempted due to Environmental Limitations-(lack of equipment, weather restraints, etc.). 88-Not Attempted due to Medical Conditions or Safety Concerns. Bed Mobility: 6 Transfers (B,C,W/C): 6 Gait: 4 Stairs: 4 Indoor Mobility (Ambulation): Independent Stairs: Needed Some Help Prior Devices Use: Walker Patient reports that her boyfriend is always with her as she walks to keep her from falling. PT Evaluation-Current Subjective Patient presents laying in bed and agrees to walk with physical therapy. Objective Patient Orientation: Person, Confused Attachments: IV ROM/Strength ROM Lower Extremities WFL Strength Lower Extremities L LE 4/5 strength grossly R LE 3/5 strength grossly Integumentary/Posture Bowel Incontinence: No Bladder Incontinence: No Neuromuscular (Tone, Coordination, Reflexes) grossly intact Sensory Vision: Functional Hearing: Functional Transfers Sit to Lying (QC): 4 Lying to Sitting/Side of Bed(Q: 4 Sit to Stand (QC): 3 Patient required CGA for bed mobility but required min assist for sit to stand transfer. Gait Does the Patient Walk?: Yes Mode of Locomotion: Walk Anticipated Mode of Locomotion: Walk Walk 10 feet (QC): 3 Walk 50 ft with 2 Turns(QC): 3 Walk 150 ft (QC): 3 Distance: 300' Gait Assistive Device: FWW Comments/Gait Description Patient ambulated 300' with FWW and min assist. Patient required frequent cues for proper R LE advancement while walking. Balance Sitting Static: Normal Sitting Dynamic: Normal Standing Static: Fair Standing Dynamic: Fair Assessment/Needs Patient ambulated and performed bed mobility during therapy session. Patient had difficulty with ambulation and could not talk and walk correctly at the same time. When patient started to fatigue she would drag her R LE instead of picking it up to step. Patient was CGA for all bed mobility. Noted increase in confusion with emotional outburst. Rehab Potential: Guarded PT Hat Cutter Goals Hat Cutter Goals PT Detention Goals Time Frame: Oct 17, 2021 Roll Left & Right (QC): 6 Sit to Lying (QC): 6 Lying-Sitting on Side/Bed(QC): 6 Sit to Stand (QC): 4 Chair/Fih-oz-Ywtbq Xfer(QC): 4 Toilet Transfer (QC): 4 Does the Patient Walk: Yes Walk 10 feet (QC): 4 Walk 50ft with 2 Turns (QC): 4 Walk 150 ft (QC): 4 PT Plan Problem List Problem List: Activity Tolerance, Functional Strength, Safety, Balance, Gait, Transfer, Bed Mobility, ROM Treatment/Plan Treatment Plan: Continue Plan of Care Treatment Plan: Bed Mobility, Education, Functional Activity Gilda, Functional Strength, Gait, Safety, Therapeutic Exercise, Transfers Treatment Duration: Oct 17, 2021 Frequency: 6 times per week Estimated Hrs Per Day: .25 hour per day Time/GCodes Time In: 1327 Time Out: 1344 Total Billed Treatment Time: 17 Total Billed Treatment 1 Visit EVMod 17 min TOVA MONTERO PT Oct 01, 2021 14:04
--- NOTE | 2021-10-01 14:26 | Occupational Therapy Eval ---
OT Evaluation-General/PLF Medical Diagnosis Admission Date Sep 29, 2021 at 16:58 Medical Diagnosis: Chest pain, CHF Onset Date: Sep 29, 2021 Therapy Diagnosis Therapy Diagnosis: reduced adl status Height/Weight Height (Feet): 5 Height (Inches): 9.00 Weight (Pounds): 171 Weight (Ounces): 9.0 Precautions Precautions/Isolations: Fall Prevention, Standard Precautions Referral Physician: Tristan Referral Reason: Evaluation/Treatment Medical History Pertinent Medical History: Atrial Fib, CAD, Heart Failure, HTN, Hypothroidism Current History Patient presented to ED with chest pain and SOA. Pt reports she lives with her boyfriend who provides supervision for adls, specifically bathing. She owns a 4WW, cane and FWW, but reports that she uses the FWW most frequently. She performs most of the iadls but will go out for meals. Reviewed History: Yes Social History Home: Single Level Current Living Status: Significant Other Entry Into Home: Stairs With Railing Steps Into Home: 3 ADL-Prior Level of Function SCALE: Activities may be completed with or without assistive devices. 8-Frqkrkbumo-pveulev completes the activity by him/herself with no assistance from a helper. 5-Set-up or Clean-up Assistance-helper sets up or cleans up; patient completes activity. [place] assists only prior to or following the activity. 4-Supervision or Touching Assistance-helper provides verbal cues and/or t ouching/steadying and/or contact guard assistance as patient completes activity. Assistance may be provided throughout the activity or intermittently. 3-Partial/Moderate Assistance-helper does LESS THAN HALF the effort. [place] lifts, holds or supports trunk or limbs, but provides less than half the effort. 2-Substantial/Maximal Assistance-helper does MORE THAN HALF the effort. [place] lifts or holds trunk or limbs and provides more than half the effort. 7-Rkdpneqsf-lfcaeg does ALL the effort. Patient does none of the effort to complete the activity. Or, the assistance of 2 or more helpers is required for the patient to complete the activity. If activity was not attempted, code reason: 7-Patient Refused. 9-Not Applicable-not attempted and the patient did not perform the activity before the current illness, exacerbation or injury. 10-Not Attempted due to Environmental Limitations-(lack of equipment, weather restraints, etc.). 88-Not Attempted due to Medical Conditions or Safety Concerns. Self Care: Needed Some Help (supervision/sba) Functional Cognition: Unknown DME/Equipment: Bath Bench, Grab Bars, Shower OT Current Status Subjective Pt denies pain. Familiar to this therapist. Pt reports she has gone "down hill" since last rehab stay especially with her memory. Appearance Pt sitting in recliner, alarm set at OT departure. RN notified. Mental Status/Objective Patient Orientation: Person, Situation Attachments: IV, Telemetry Current Glasses/Contacts: Yes Hearing Aids: No Hand Dominance: Right Upper Extremity ROM R shoulder flex: 3/4 AROM from old injury All other joints WNL Upper Extremity Strength Fair resident care supervisor strength R shoulder not tested due to c/o pain L shoulder: 4/5 Bilateral elbows: 4/5 ADL-Treatment Lower Body Dressing (QC): 3 (Balance assist only) On/Off Footwear (QC): 4 Toileting Hygiene (QC): 3 (balance assist only) Supine>sit: SBA. Pt able to demonstrate ability to don/doff bilateral socks without assist. She stood with close supervision. Slightly impulsive but no unsteadiness. She ambulated to/from bathroom with min a and use of walker. Observed to have difficulty managing RLE during gait. Min a for balance as she stood to manage brief over hips. Una care completed in sitting with cue to initiate. Pt left sitting in recliner, all needs within reach, chair alarm set. RN notified. Education OT Patient Education: Correct positioning, Purpose of tx/functional activities, Reviewed precautions, Safety issues Teaching Recipient: Patient Teaching Methods: Discussion Response to Teaching: Verbalize Understanding, Reinforcement Needed OT Long-Term Goals Long-Term Goals Time Frame: Oct 10, 2021 Eating (QC): 6 Oral Hygiene (QC): 5 Toileting Hygiene (QC): 6 Shower/Bathe Self (QC): 4 Upper Body Dressing (QC): 4 Lower Body Dressing (QC): 4 1=Demonstrate adherence to instructed precautions during ADL tasks. 2=Patient will verbalize/demonstrate understanding of assistive de vices/modifications for ADL. 3=Patient will improve strength/tolerance for activity to enable patient to perform ADL's. OT Education/Plan Problem List/Assessment Assessment: Decreased Activ Tolerance, Decreased Safety Aware, Decreased UE Strength, Impaired Cognition, Impaired Funct Balance, Impaired I ADL's, Impaired Self-Care Skills Discharge Recommendations Plan/Recommendations: Continue POC Therapy Discharge Recommendati: Intermittent Supervision, Post Acute OT (HH) Treatment Plan/Plan of Care Treatment,Training & Education: Yes Patient would benefit from OT for education, treatment and training to promote independence in ADL's, mobility, safety and/or upper extremity function for ADL's. Plan of Care: ADL Retraining, Cognitive Retraining, Functional Mobility, UE Funct Exercise/Act Treatment Duration: Oct 10, 2021 Frequency: 3 times per week (3-5x/week) Estimated Hrs Per Day: .25 hour per day Agreement: Yes Rehab Potential: Fair Time/GCodes Start Time: 14:00 Stop Time: 14:18 Total Time Billed (hr/min): 18 Billed Treatment Time 1 visit Savannah Christie OT Oct 01, 2021 14:26
[2021-10-01 15:31] VITALS: BP 152/77
--- NOTE | 2021-10-01 17:08 | Progress Note - Hospitalist ---
Subjective HPI/CC On Admission Date Seen by Provider: Oct 01, 2021 Time Seen by Provider: 11:00 Corina Baker is an 80 year old female with PMH HTN, HLD, CAD, AFib, aortic stenosis s/p TAVR, HFpEF, CKD, who presented with chest pain. She was also having shortness of breath. She had been feeling lightheaded and dizzy. Subjective/Events-last exam She is feeling better. She is still feeling weak. She denies shortness of breath. She denies chest pain. Objective Exam Vital Signs Vital Signs Date Time Temp Pulse Resp B/P (MAP) Pulse Ox O2 Delivery O2 Flow Rate FiO2 10/01/21 15:31 36.8 71 18 152/77 (102) 94 Room Air 09/29/21 18:48 21 Capillary Refill : Less Than 3 Seconds General Appearance: No Apparent Distress, Anxious, Chronically ill Respiratory: No Respiratory Distress, Decreased Breath Sounds Cardiovascular: Regular Rate, Rhythm, No Murmur Gastrointestinal: Normal Bowel Sounds, Non Tender, Soft Extremity: Normal Inspection, Pedal Edema Neurologic/Psychiatric: Alert, Motor Weakness Skin: Normal Color, Warm/Dry Results/Procedures Lab Laboratory Tests 10/01/21 05:50 Patient resulted labs reviewed. Imaging: Reviewed Imaging Report Assessment/Plan Assessment and Plan Assess & Plan/Chief Complaint CAD Aortic stenosis Cardiology following Left heart cath with mild nonobstructive disease, no intervention required HFpEF Continue Lasix SIVA on CKD Improved Debility PT/OT IRU evaluation HTN HLD AFib pHTN Continue home meds Chest pain, resolved Diagnosis/Problems Diagnosis/Problems (1) Acute on chronic heart failure with preserved ejection fraction (HFpEF) Status: Acute (2) Aortic stenosis Status: Chronic (3) S/P TAVR (transcatheter aortic valve replacement) Status: Chronic (4) CAD (coronary artery disease) Status: Acute (5) Acute kidney injury superimposed on chronic kidney disease Status: Acute (6) Debility Status: Acute (7) Chest pain Status: Resolved Qualifiers: Chest pain type: unspecified Qualified Codes: R07.9 - Chest pain, u nspecified Resolution Date/Time: 10/01/21 @ 17:11 NOE MARQUEZ MD Oct 01, 2021 17:08
[2021-10-01] MEDS: RIVAROXABAN 20 MG TABLET (XARELTO) PO SCH (17:09)
[2021-10-01 19:30] VITALS: BP 134/65
[2021-10-01] MEDS: FAMOTIDINE 20 MG (PEPCID) TABLET PO SCH (19:47)
[2021-10-02 00:21] VITALS: BP 130/79
[2021-10-02 02:19] VITALS: BP 145/66
[2021-10-02 04:24] VITALS: BP 132/70
[2021-10-02] MEDS: LEVOTHYROXINE 75 MCG (LEVOTHROID) TABLET PO SCH (06:45)
[2021-10-02] MEDS: FUROSEMIDE 40 MG/4 ML INJ (LASIX) IVP SCH (06:50)
[2021-10-02 08:11] VITALS: BP 130/79
[2021-10-02 08:26] LABS: BASOPHILS # (AUTO) 0.1 10^3/uL (0.0-0.1); BASOPHILS % (AUTO) 1 % (0-10); EOSINOPHILS # (AUTO) 0.3 10^3/uL (0.0-0.3); EOSINOPHILS % (AUTO) 3 % (0-10); HEMATOCRIT 37 % (35-52); HEMOGLOBIN 11.5 g/dL (11.5-16.0); LYMPHOCYTES # (AUTO) 1.6 10^3/uL (1.0-4.0); LYMPHOCYTES % (AUTO) 16 % (12-44); MEAN CORPUSCULAR HEMOGLOBIN 31 pg (25-34); MEAN CORPUSCULAR HGB CONC 32 g/dL (32-36); MEAN CORPUSCULAR VOLUME 98 fL (80-99); MEAN PLATELET VOLUME 10.5 fL (9.0-12.2); MONOCYTES # (AUTO) 1.1 10^3/uL (0.0-1.0); MONOCYTES % (AUTO) 12 % (0-12); NEUTROPHILS # (AUTO) 6.6 10^3/uL (1.8-7.8); NEUTROPHILS % (AUTO) 68 % (42-75); PLATELET COUNT 185 10^3/uL (130-400); WHITE BLOOD COUNT 9.7 10^3/uL (4.3-11.0)
[2021-10-02] MEDS: GABAPENTIN 100 MG (NEURONTIN) CAP PO SCH (08:40)
[2021-10-02 08:47] LABS: CALCIUM 8.9 MG/DL (8.5-10.1); CREATININE SERUM 1.11 MG/DL (0.60-1.30)
[2021-10-02 08:52] LABS: POTASSIUM 4.8 MMOL/L (3.6-5.0)
--- NOTE | 2021-10-02 11:39 | Cardiology Progress Note ---
Subjective Date Seen by Provider: Oct 02, 2021 Time Seen by Provider: 11:38 Subjective/Events-last exam Patient is laying down in bed, complaining of diarrhea, generalized fatigue. Review of Systems General: No Chills, No Night Sweats; Fatigue, Malaise; No Appetite, No Other HEENT: No Head Aches, No Visual Changes, No Eye Pain, No Ear Pain, No Dysphasia, No Sinus Congestion, No Post Nasal Drip, No Sore Throat, No Other Pulmonary: No Dyspnea, No Cough, No Pleuritic Chest Pain, No Other Cardiovascular: No: Chest Pain, Palpitations, Orthopnea, Paroxysmal Noc. Dyspnea, Edema, Lt Headedness, Other Objective-Cardiology Exam Last Set of Vital Signs Vital Signs 10/02/21 10/02/21 02:19 08:11 Temp 36.6 Pulse 115 Resp 20 B/P (MAP) 130/79 (96) Pulse Ox 93 O2 Delivery Room Air FiO2 21 I&O Intake and Output 10/02/21 00:00 Intake Total 1300 ml Balance 1300 ml Intake Oral 1300 ml # Voids 9 # Bowel Movements 3 General: Alert, Oriented X3, Cooperative HEENT: Atraumatic, PERRLA Neck: Supple, No JVD, No Thyromegaly Lungs: Clear to Auscultation, Normal Air Movement Heart: Normal S1, Normal S2, Other (Atrial fibrillation, systolic murmur at the left sternal border) Abdomen: Normal Bowel Sounds, Soft, No Tenderness, No Hepatosplenomegaly, No Masses Extremities: No Clubbing, No Cyanosis, No Edema, Normal Pulses, No Tenderness/Swelling Skin: No Rashes, No Breakdown, No Significant Lesion Neuro: Normal Gait, Normal Speech, Strength at 5/5 X4 Ext, Normal Tone, Sensa tion Intact Psych/Mental Status: Mental Status NL, Mood NL Results Lab Laboratory Tests 10/02/21 08:17 A/P-Cardiology Admission Diagnosis Chest pain Non-ST elevation myocardial infarction Coronary artery disease Aortic valve stenosis Assessment/Plan Chest pain, mild elevation in troponin, non-ST elevation myocardial infarction, history of coronary artery disease with a stent to the LAD, cardiac catheterization was carried out on September 30, 2021 showing patent stents with mild coronary artery disease nonobstructive disease Atrial fibrillation with rapid ventricular response, history of paroxysmal atrial fibrillation maintained on Xarelto, Coreg and diltiazem. Heart rate better controlled. Continue to monitor Diarrhea, still having significant diarrhea, I will stop Lipitor. I am changing Lasix from 40 mg IV twice a day to 40 mg oral daily. Monitor tolerance and response. 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 Most recent 2D Echo 10/12/18 revealing mechanical prothesis present in aortic valve. Peak gradient across prosthetic valve is 26 mmHg, mean gradient 13mmHg, calculated valve area 2.41 cm squared. Mild AR. there is perivalvular regurg, Mod TR, Repeat 2D echo was done on June 20, 2021 showing moderate to severe LVH with normal systolic function, significant deterioration in the aortic valve with a peak gradient of 91 mmHg, valve area 1.4 cm. Mild mitral valve stenosis, pulmonary hypertension with PA pressure 50 to 55 mmHg Repeat 2D echo showed peak gradient of 23 mmHg, mean gradient of 12 mmHg, which is similar to the finding of August 2020, I feel that the echo finding on June 2021 were erroneously high. Patient has severe left ventricular hypertrophy. Congestive heart failure, acute on chronic left ventricular diastolic dysfunction with severe left ventricular hypertrophy, responding to diuretics. Anemia, continue to monitor H/H Pulmonary hypertension, repeat 2D echo. Mild bilateral carotid stenosis, history of syncope. Last ultrasound was done in July 2018, continue to monitor. Sick sinus syndrome, history of permanent pacemaker. Continue to monitor. Hypertension, labile blood pressure, difficult to control. Has been using clonidine as needed. Monitor blood pressure. Hyperlipidemia, monitored as outpatient. Hypothyroidism, monitor TSH EDY GOOD MD Oct 02, 2021 11:39
[2021-10-02 11:48] VITALS: BP 121/96
--- NOTE | 2021-10-02 11:54 | Physical Therapy Progress Note ---
Therapy Progress Note Patient is in bed and very confused today. Patient reported that she did not want to get up with therapy. Due to decline in patient mental status therapy be will attempted again in the a.m. 1 ref TOVA MONTERO PT Oct 02, 2021 11:54
[2021-10-03] MEDS ORDERED: FUROSEMIDE 40 MG (LASIX) TAB PO SCH (09:00)
--- NOTE | 2021-10-03 19:45 | Discharge Summary ---
Discharge Summary Hospital Course Problems/Dx: (1) Acute on chronic heart failure with preserved ejection fraction (HFpEF) Status: Acute (2) Aortic stenosis Status: Chronic (3) S/P TAVR (transcatheter aortic valve replacement) Status: Chronic (4) CAD (coronary artery disease) Status: Acute (5) Acute kidney injury superimposed on chronic kidney disease Status: Acute (6) Debility Status: Acute (7) Chest pain Status: Resolved Qualifiers: Qualified Codes: R07.9 - Chest pain, unspecified Hospital Course Date of Admission: Oct 01, 2021 at 17:01 Admission Diagnosis : Chest pain Family Physician/Provider: Osman Prather MD Date of Discharge: 10/03/21 Discharge Diagnosis: CAD, HFpEF, aortic stenosis, AFib with RVR, debility Hospital Course: Corina Hatfield is an 80 year old female with multiple medical comorbidities who was admitted with chest pain and shortness of breath. Cardiology was c onsulted and assisted with her care. She underwent left heart catheterization which showed nonobstructive coronary artery disease. She has a history of TAVR which appeared to be functioning well. She was given diuretics for HFpEF and SIVA on CKD. She also had issues with AFib with RVR and her medications were adjusted. She was having diarrhea and was being tested for c diff. She was debilitated and was accepted to the inpatient rehab unit. She was discharged to IRU for ongoing therapy needs. Labs and Pending Lab Test: Microbiology 10/02/21 C. difficile [facility] Antigen & Toxins - Final, Complete Home Meds Active Reported Diltiazem 24Hr Cd (Diltiazem HCl) 240 Mg Cap.er.24h 240 Mg PO DAILY Xarelto (Rivaroxaban) 20 Mg Tablet 20 Mg PO DAILY K-Tab ER (Potassium Chloride) 10 Meq Tablet.er 20 Meq PO DAILY TAKE 2 (10MEQ) TABS Carvedilol 12.5 Mg Tablet 12.5 Mg PO BID Atorvastatin Calcium 20 Mg Tablet 20 Mg PO DAILY Furosemide 20 Mg Tablet 20 Mg PO DAILY Levothyroxine Sodium 75 Mcg Tablet 75 Mcg PO DAILY Assessment/Pt Instructions Discharged to inpatient rehab for ongoing therapy Discharge Planning: >30 minutes discharge planning Discharge Instructions Discharge Diet: Low Sodium Diet Activity as Tolerated: Yes Consultations Cardiology Discharge Physical Examination Vital Signs Vital Signs Date Time Temp Pulse Resp B/P (MAP) Pulse Ox O2 Delivery O2 Flow Rate FiO2 10/02/21 12:59 118 10/02/21 11:48 37.3 22 121/96 (104) 94 Room Air 10/02/21 02:19 21 General Appearance: No Apparent Distress, Chronically ill Respiratory: Lungs Clear, No Respiratory Distress Cardiovascular: Irregularly Irregular, Tachycardia Gastrointestinal: Normal Bowel Sounds, Soft Extremity: Normal Inspection, No Pedal Edema Skin: Normal Color, Warm/Dry Neurologic/Psychiatric: Alert, No Motor/Sensory Deficits Allergies: Coded Allergies: Penicillins (Verified Allergy, Unknown, 06/23/21) pineapple (Verified Allergy, Unknown, 06/23/21) Discharge Summary Date of Admission Oct 01, 2021 at 17:01 Date of Discharge Oct 02, 2021 at 13:49 Discharge Date: Oct 02, 2021 Discharge Time: 13:49 Admission Diagnosis Chest pain Consults/Procedures Consulations Cardiology Procedures Left heart catheterization Discharge Diagnosis CAD Aortic stenosis HFpEF AFib with RVR SIVA on CKD Debility (1) Acute on chronic heart failure with preserved ejection fraction (HFpEF) Status: Acute (2) Aortic stenosis Status: Chronic (3) S/P TAVR (transcatheter aortic valve replacement) Status: Chronic (4) CAD (coronary artery disease) Status: Acute (5) Acute kidney injury superimposed on chronic kidney disease Status: Acute (6) Debility Status: Acute (7) Chest pain Status: Resolved Qualifiers: Qualified Codes: R07.9 - Chest pain, unspecified NOE MARQUEZ MD Oct 03, 2021 19:33
== END 2021-10-02 13:49 | DRG 280 ==
LOC: EDUNIT# 12:52 → ER 12:55 → 4TH 16:58 → CSD 09-30 11:05 → 4TH 09-30 15:45 → OBSVTOIN 10-01 17:01
PROVIDERS: ADMIT Internal Medicine; ATTEND Internal Medicine
PROC: 4A023N7 Measurement of Cardiac Sampling and Pressure, Left Heart, Percutaneous Approach (ICD-10-PCS; principal; 2021-09-30)
PROC: B2111ZZ Fluoroscopy of Multiple Coronary Arteries using Low Osmolar Contrast (ICD-10-PCS; 2021-09-30)
DX: I13.0 Hypertensive heart and chronic kidney disease with heart failure and stage 1 through stage 4 chronic kidney disease, or unspecified chronic kidney disease (principal); I21.4 Non-ST elevation (NSTEMI) myocardial infarction; I50.33 Acute on chronic diastolic (congestive) heart failure; N17.9 Acute kidney failure, unspecified; Z95.5 Presence of coronary angioplasty implant and graft; Z95.0 Presence of cardiac pacemaker; I25.10 Atherosclerotic heart disease of native coronary artery without angina pectoris; E78.00 Pure hypercholesterolemia, unspecified; M19.90 Unspecified osteoarthritis, unspecified site; G89.29 Other chronic pain; E03.9 Hypothyroidism, unspecified; E87.6 Hypokalemia; Z95.2 Presence of prosthetic heart valve; N18.9 Chronic kidney disease, unspecified; I27.20 Pulmonary hypertension, unspecified; I35.0 Nonrheumatic aortic (valve) stenosis; R53.81 Other malaise; I48.0 Paroxysmal atrial fibrillation; I49.5 Sick sinus syndrome; D64.9 Anemia, unspecified; I65.23 Occlusion and stenosis of bilateral carotid arteries; Z20.822 Contact with and (suspected) exposure to COVID-19
CPT/HCPCS: 36415; 71045; 80048; 80061; 83735; 83874; 83880; 84439; 84443; 84484; 85025; 85027; 85610; 85730; 86141; 87324; 87449; 87636; 93005; 93041; 93306; 93458; G0378

== ENCOUNTER → 2021-09-29 | Outpatient (CLI) | payer MEDICARE ==
[~2021-09-29] MED LIST changes: +DILT240C92 PO
[2021-09-29 11:11] LABS: BASOPHILS # (AUTO) 0.1 10^3/uL (0.0-0.1); BASOPHILS % (AUTO) 1 % (0-10); EOSINOPHILS # (AUTO) 0.3 10^3/uL (0.0-0.3); EOSINOPHILS % (AUTO) 3 % (0-10); HEMATOCRIT 35 % (35-52); HEMOGLOBIN 11.1 g/dL (11.5-16.0); LYMPHOCYTES # (AUTO) 1.9 10^3/uL (1.0-4.0); LYMPHOCYTES % (AUTO) 20 % (12-44); MEAN CORPUSCULAR HEMOGLOBIN 31 pg (25-34); MEAN CORPUSCULAR HGB CONC 32 g/dL (32-36); MEAN CORPUSCULAR VOLUME 96 fL (80-99); MEAN PLATELET VOLUME 9.9 fL (9.0-12.2); MONOCYTES # (AUTO) 0.9 10^3/uL (0.0-1.0); MONOCYTES % (AUTO) 10 % (0-12); NEUTROPHILS # (AUTO) 6.3 10^3/uL (1.8-7.8); NEUTROPHILS % (AUTO) 66 % (42-75); PLATELET COUNT 298 10^3/uL (130-400); WHITE BLOOD COUNT 9.6 10^3/uL (4.3-11.0)
[2021-09-29 11:26] LABS: ALBUMIN 3.9 GM/DL (3.2-4.5); BILIRUBIN,TOTAL 0.5 MG/DL (0.1-1.0); CREATININE SERUM 1.56 MG/DL (0.60-1.30); TOTAL PROTEIN 6.8 GM/DL (6.4-8.2)
== END ==
LOC: CARD 11:00
PROVIDERS: ATTEND Nurse Practitioner Family
DX: R06.00 Dyspnea, unspecified (principal); R19.7 Diarrhea, unspecified
CPT/HCPCS: 36415; 80053; 82550; 84484; 85025; 85379; 93005

== ENCOUNTER → 2021-10-13 | Outpatient (CLI) | payer MEDICARE ==
[~2021-10-13] MED LIST changes: +CHOL4PAC3 PO; +DIGO125T18 PO; +DILT240C92 PO; +FURO40TA4 PO; +LACT1CAP7 PO; +MTP100TCR PO
== END ==
LOC: WOUNDCARE 09:18
PROVIDERS: ATTEND Family Medicine
DX: T81.31XA Disruption of external operation (surgical) wound, not elsewhere classified, initial encounter (principal); L97.812 Non-pressure chronic ulcer of other part of right lower leg with fat layer exposed; I89.0 Lymphedema, not elsewhere classified
CPT/HCPCS: 87070; 87077; 87205; A6197; G0463; 99214

== ENCOUNTER → 2021-10-21 | Outpatient (CLI) | payer MEDICARE | LOC: WOUNDCARE 09:54 | PROVIDERS: ATTEND Family Medicine | DX: T81.31XA Disruption of external operation (surgical) wound, not elsewhere classified, initial encounter (principal); L97.812 Non-pressure chronic ulcer of other part of right lower leg with fat layer exposed; I89.0 Lymphedema, not elsewhere classified; I96 Gangrene, not elsewhere classified | CPT/HCPCS: 11042; G0463 ==

== ENCOUNTER → 2021-10-28 | Outpatient (CLI) | payer MEDICARE ==
[~2021-10-28] MED LIST changes: +CATHETER FLUSH 10 ML SYR IV PRN; +HOLD METFORMIN - RECEIVED CONTRAST 20 ML VIAL IV SCH; +IOHEXOL 350 MG/ML 100 ML (OMNIPAQUE 350) VIAL IV ONE; +NS 100 ML (IVPB) BAG IV ONE
--- NOTE | 2021-10-28 09:45 | Diagnostic Imaging Report ---
PROCEDURE: CT right lower extremity with contrast. TECHNIQUE: Multiple contiguous axial CT images of the right extremity were obtained after intravenous administration of iodinated contrast. Auto Exposure Controls were utilized during the CT exam to meet ALARA standards for radiation dose reduction. INDICATION: Right knee replacement on June 28 with open wound. Slow healing. Evaluate for osteomyelitis. COMPARISON: None FINDINGS: There is a right total knee arthroplasty, which causes significant artifact and obscures the adjacent anatomy. No hardware loosening is appreciated. No acute fracture is seen. There is a small right knee joint effusion. No periosteal reaction or significant cortical erosion is appreciated. No drainable rim-enhancing fluid collection is seen. There is surrounding edema and scarring. No focal muscular atrophy is seen. There is no soft tissue gas. There is calcific atherosclerosis. IMPRESSION: 1. Right knee arthroplasty with no CT findings of osteomyelitis. There is a nonspecific small right knee joint effusion. 2. Edema and scarring in the soft tissues about the right knee. No rim-enhancing fluid collection or soft tissue gas. Dictated by: Dictated on workstation # [id number]
== END ==
LOC: RAD 10:15
PROVIDERS: ATTEND Family Medicine
DX: T81.31XA Disruption of external operation (surgical) wound, not elsewhere classified, initial encounter (principal); L97.812 Non-pressure chronic ulcer of other part of right lower leg with fat layer exposed; Z96.651 Presence of right artificial knee joint; M25.461 Effusion, right knee
CPT/HCPCS: 73701

== ENCOUNTER → 2021-10-28 | Outpatient (CLI) | payer MEDICARE ==
[~2021-10-28] MED LIST changes: -CATHETER FLUSH 10 ML SYR IV PRN; -HOLD METFORMIN - RECEIVED CONTRAST 20 ML VIAL IV SCH; -IOHEXOL 350 MG/ML 100 ML (OMNIPAQUE 350) VIAL IV ONE; -NS 100 ML (IVPB) BAG IV ONE
== END ==
LOC: WOUNDCARE 09:28
PROVIDERS: ATTEND Family Medicine
DX: T81.31XA Disruption of external operation (surgical) wound, not elsewhere classified, initial encounter (principal); L97.812 Non-pressure chronic ulcer of other part of right lower leg with fat layer exposed; I89.0 Lymphedema, not elsewhere classified; I96 Gangrene, not elsewhere classified
CPT/HCPCS: 11042; A6021; G0463

== ENCOUNTER → 2021-11-05 | Outpatient (CLI) | payer MEDICARE | LOC: WOUNDCARE 12:10 | PROVIDERS: ATTEND Family Medicine | DX: T81.31XA Disruption of external operation (surgical) wound, not elsewhere classified, initial encounter (principal); L97.812 Non-pressure chronic ulcer of other part of right lower leg with fat layer exposed; I89.0 Lymphedema, not elsewhere classified; I96 Gangrene, not elsewhere classified | CPT/HCPCS: 15271; G0463 ==

== ENCOUNTER → 2021-11-11 | Outpatient (CLI) | payer MEDICARE | LOC: WOUNDCARE 08:43 | PROVIDERS: ATTEND Family Medicine | DX: T81.31XA Disruption of external operation (surgical) wound, not elsewhere classified, initial encounter (principal); L97.512 Non-pressure chronic ulcer of other part of right foot with fat layer exposed; I89.0 Lymphedema, not elsewhere classified; I96 Gangrene, not elsewhere classified | CPT/HCPCS: 15271; G0463 ==

== ENCOUNTER → 2021-11-18 | Outpatient (CLI) | payer MEDICARE | LOC: WOUNDCARE 08:39 | PROVIDERS: ATTEND Family Medicine | DX: T81.31XA Disruption of external operation (surgical) wound, not elsewhere classified, initial encounter (principal); L97.512 Non-pressure chronic ulcer of other part of right foot with fat layer exposed; I89.0 Lymphedema, not elsewhere classified; I96 Gangrene, not elsewhere classified | CPT/HCPCS: 15271; G0463 ==

== ENCOUNTER → 2021-11-26 | Outpatient (CLI) | payer MEDICARE | LOC: WOUNDCARE 09:47 | PROVIDERS: ATTEND Family Medicine | DX: T81.31XA Disruption of external operation (surgical) wound, not elsewhere classified, initial encounter (principal); S51.011A Laceration without foreign body of right elbow, initial encounter; L97.812 Non-pressure chronic ulcer of other part of right lower leg with fat layer exposed; I89.0 Lymphedema, not elsewhere classified; I96 Gangrene, not elsewhere classified; R29.6 Repeated falls | CPT/HCPCS: 15271; G0463 ==

== ENCOUNTER → 2021-12-03 | Outpatient (CLI) | payer MEDICARE | LOC: WOUNDCARE 09:44 | PROVIDERS: ATTEND Family Medicine | DX: T81.31XA Disruption of external operation (surgical) wound, not elsewhere classified, initial encounter (principal); L97.822 Non-pressure chronic ulcer of other part of left lower leg with fat layer exposed; I89.0 Lymphedema, not elsewhere classified; S51.011A Laceration without foreign body of right elbow, initial encounter; I96 Gangrene, not elsewhere classified; R29.6 Repeated falls | CPT/HCPCS: A6212; G0463; 99213 ==

== ENCOUNTER → 2021-12-10 | Outpatient (CLI) | payer MEDICARE | LOC: WOUNDCARE 09:51 | PROVIDERS: ATTEND Family Medicine | DX: T81.31XA Disruption of external operation (surgical) wound, not elsewhere classified, initial encounter (principal); L97.812 Non-pressure chronic ulcer of other part of right lower leg with fat layer exposed; I89.0 Lymphedema, not elsewhere classified; R29.6 Repeated falls | CPT/HCPCS: 99212 ==

== ENCOUNTER → 2022-01-13 | Outpatient (CLI) | payer MEDICARE | LOC: WOUNDCARE 13:14 | PROVIDERS: ATTEND Family Medicine | DX: L97.211 Non-pressure chronic ulcer of right calf limited to breakdown of skin (principal); I89.0 Lymphedema, not elsewhere classified; I12.9 Hypertensive chronic kidney disease with stage 1 through stage 4 chronic kidney disease, or unspecified chronic kidney disease; N18.31 Chronic kidney disease, stage 3a | CPT/HCPCS: 11042; A6197; A6212; G0463 ==

== ENCOUNTER → 2022-01-21 | Outpatient (CLI) | payer MEDICARE | LOC: WOUNDCARE 10:24 | PROVIDERS: ATTEND Family Medicine | DX: S41.111A Laceration without foreign body of right upper arm, initial encounter (principal); I96 Gangrene, not elsewhere classified; L97.211 Non-pressure chronic ulcer of right calf limited to breakdown of skin; I89.0 Lymphedema, not elsewhere classified; I12.9 Hypertensive chronic kidney disease with stage 1 through stage 4 chronic kidney disease, or unspecified chronic kidney disease; N18.31 Chronic kidney disease, stage 3a; R29.6 Repeated falls | CPT/HCPCS: 11042; A6212; G0463 ==

== ENCOUNTER 2022-03-14 08:17 | Emergency (ER) | payer MEDICARE ==
[~2022-03-14] VITALS: Ht 175 cm; Wt 64.0 kg
--- NOTE | 2022-03-14 08:43 | ED Fall/Injury ---
General Chief Complaint: Trauma-Non Activation Stated Complaint: FALL Source: patient Exam Limitations: no limitations History of Present Illness Date Seen by Provider: Mar 14, 2022 Time Seen by Provider: 08:38 Initial Comments Patient is an 81-year-old female who presents to the emergency department today with a chief complaint of pain all over after a fall in her yard at 4 PM yesterday. Her Demetrius is with her and states that they were outside watering the yard and watering muro, he stepped inside to get something and when he came back out he found her on the ground outside. He states that she was conscious when he found her he was only moments inside the house. He states she was face down. It took him about an hour to get her off the ground. She refused EMS yesterday. She states that she did not sleep last night due to pain all over. She did take some Tylenol last night but nothing this morning. She denies chest pain or shortness of breath. No nausea or vomiting. She is complaining of pain in her neck, shoulders, lower extremities. She is also complaining of right fifth finger pain. Her Demetrius says she has a long history of "dizzy" spells and frequent falls and syncopal events. She is quite sensitive to touch even when I adjust her down and she cries out in pain. All other review of systems reviewed and negative except as stated. Occurred: yesterday Severity: severe Injuries/Pain Location: neck, upper extremity, lower extremity Context: unknown Loss of Consciousness: no loss of consciousness Modifying Factors: Improves With Immobilization; Worse With Movement Associated Symptoms (Fall): Dizziness, Lightheadedness, Neck Pain Allergies and Home Medications Allergies Coded Allergies: Penicillins (Verified Allergy, Unknown, 06/23/21) pineapple (Verified Allergy, Unknown, 06/23/21) Patient Home Medication List Home Medication List Reviewed: Yes Amiodarone HCl (Amiodarone HCl) 200 Mg Tablet, 200 MG PO BID Prescribed by: DAYA VILLEGAS on 10/10/21 0516 Atorvastatin Calcium (Atorvastatin Calcium) 20 Mg Tablet, 20 MG PO DAILY, (Reported) Entered as Reported by: KATRINA CRUZ on 09/09/20 1602 Cholestyramine/Aspartame (Prevalite Packet) 4 Gm Powd.pack, 4 GM PO BID WITH MEALS PRN for DIARRHEA Prescribed by: DAYA VILLEGAS on 10/10/21550 Digoxin (Digox) 125 Mcg Tablet, 0.125 MG PO DAILY Prescribed by: DAYA VILLEGAS on 10/10/21550 Diltiazem HCl (Diltiazem 24Hr Cd) 240 Mg Cap.er.24h, 240 MG PO DAILY, (Reported) Entered as Reported by: KATRINA CRUZ on 09/30/21 1557 Furosemide (Furosemide) 40 Mg Tablet, 40 MG PO DAILY Prescribed by: DAYA VILLEGAS on 10/10/21550 Gabapentin (Gabapentin) 100 Mg Capsule, 100 MG PO BID Prescribed by: DAYA VILLEGAS on 10/10/21550 Lactobacillus Acidophilus/Pect (Acidophilus-Pectin Capsule) 1 Each Capsule, 2 EACH PO TIDWM Prescribed by: DAYA VILLEGAS on 10/10/21550 Levothyroxine Sodium (Levothyroxine Sodium) 75 Mcg Tablet, 75 MCG PO DAILY, (Reported) Entered as Reported by: HAMIDA JENKINS on 11/07/18 1204 Metoprolol Succinate (Metoprolol Succinate) 100 Mg Tab.er.24h, 100 MG PO DAILY Prescribed by: DAYA VILLEGAS on 10/10/21550 Potassium Chloride (K-Tab ER) 10 Meq Tablet.er, 20 MEQ PO DAILY, (Reported) Entered as Reported by: SAJI COONEY on 10/06/20 1452 Rivaroxaban (Xarelto) 20 Mg Tablet, 20 MG PO DAILY, (Reported) Entered as Reported by: LIZZY WHEELER on 06/10/21 0956 Review of Systems Review of Systems Constitutional: see HPI, malaise, weakness Eyes: No Symptoms Reported Ears, Nose, Mouth, Throat: no symptoms reported Respiratory: no symptoms reported Cardiovascular: no symptoms reported Gastrointestinal: no symptoms reported Genitourinary: no symptoms reported Musculoskeletal: back pain, joint pain, neck pain Skin: no symptoms reported All Other Systems Reviewed Negative Unless Noted: Yes Past Wcbwlbp-Otklzu-Scsneo Hx Immunizations Up To Date Tetanus Booster (TDap): Unknown PED Vaccines UTD: No First/Initial COVID19 Vaccinat: october 2020 Second COVID19 Vaccination Darryl: november 2020 Third COVID19 Vaccination Date: MAY 2021 Seasonal Allergies Seasonal Allergies: Yes Past Medical History Surgery/Hospitalization HX: 1979 RTKR, 06/28/21 RTKR, [facility]KLE 1999, INGUINAL HERNIA REPAIR, INTROCCULAR IMPLANTS, PACEMAKER, STENTS , VALVULAR REPLACMENT Surgeries: Yes (RIGHT INGUINAL HERNIA REPAIR, 1978 RIGHT KNEE SURGERY, [facility] 1999) Coronary Stent, Hysterectomy, Pacemaker, Valve Replacement Respiratory: No Tuberculosis Currently Using CPAP: No Currently Using BIPAP: No Cardiac: Yes (PACEMAKER, VALVE REPLACED) Atrial Fibrillation, Coronary Artery Disease, High Cholesterol, Hypertension Neurological: No Dementia, Traumatic Brain Injury Reproductive Disorders: No Female 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 No Pertinent Family Hx Physical Exam Vital Signs Vital Signs - First Documented 03/14/22 08:37 Temp 36.2 Pulse 66 Resp 20 B/P (MAP) 188/98 (128) Pulse Ox 96 O2 Delivery Room Air Capillary Refill : Height, Weight, BMI Height: 5'9.00" Weight: 171lbs. 9.0oz. 77.958219qn; 23.67 BMI Method:Stated General Appearance: thin, other (frail) HEENT: PERRL/EOMI, other (dry oral mucosa) Neck: normal inspection, other (immobilized in a cervical collar on arrival; hypersensitive to touch of the cervical spine - even the skin.) Cardiovascular: regular rate, rhythm, systolic murmur Respiratory: lungs clear, normal breath sounds, no respiratory distress, no accessory muscle use, other (tender over chest wall) Gastrointestinal: normal bowel sounds, non tender, soft Extremities: no pedal edema, other (decreased ROM bilateral shoulders; distal NVI to all 4 extremities; right hand - normal function ROM of all 5 fingers. no swelling or ecchymoses to right 5th finger - no obvious dislocation) Neurologic/Psychiatric: alert, normal mood/affect, oriented x 3 Skin: normal color, warm/dry Romana Coma Score Best Eye Response: (4) Open Spontaneously Best Verbal Response: (5) Oriented Best Motor Response: (6) Obeys Commands Procedures/Interventions Date of ETT Placement: Sep 10, 2020 Time of ETT Placement: 929 Suture Size: 4-0 Progress/Results/Core Measures Results/Orders My Orders Orders - MELINDA GAGNON MD Chest 1 View, Ap/Pa Only (03/14/22 08:53) Ct Head/Cervical Spine Wo (03/14/22 08:53) Hydrocodone/Apap 5/325 Tablet (Lortab 5 (03/14/22 09:15) Medications Given in ED Current Medications Medications Dose Ordered Sig/Robbin Route Start Time Stop Time Status Last Admin Dose Admin Acetaminophen/ Hydrocodone Bitart 1 ea ONCE ONCE PO 03/14/22 09:15 03/14/22 09:16 DC 03/14/22 09:33 1 EA Vital Signs/I&O 03/14/22 03/14/22 08:37 09:33 Temp 36.2 36.2 Pulse 66 Resp 20 B/P (MAP) 188/98 (128) Pulse Ox 96 O2 Delivery Room Air Diagnostic Imaging Diagonstic Imaging: Xray Plain Films/CT/US/NM/MRI: chest Comments [facility] [place] [place] NAME: JAZMÍN GRIDER Hank [facility] REC#: [id number] PT STATUS: REG ER : 1940 PHYSICIAN: MELINDA GAGNON MD ADMIT DATE: 03/14/22/ER Draft Date of Exam:03/14/22 CHEST 1 VIEW, AP/PA ONLY INDICATION: Pain. COMPARISON is made with prior exam of 09/29/2021 FINDINGS: There is cardiomegaly. There is venous congestion. There is no pleural effusion or pneumothorax. The mediastinum is unremarkable. Pacemaker overlies the left hemithorax IMPRESSION: Cardiomegaly and mild central pulmonary venous congestion. Dictated on workstation # [id number] Dict: 03/14/22929 Trans: 03/14/22932 [facility] [phone] Interpreted by: SHAYAN JESSICA MD Electronically signed by: Diagonstic Imaging: CT Comments [facility] [place] [place] NAME: JAZMÍN GRIDER [facility] REC#: [id number] PT STATUS: REG ER : 1940 PHYSICIAN: MELINDA GAGNON MD ADMIT DATE: 03/14/22/ER Draft Date of Exam:03/14/22 CT HEAD/CERVICAL SPINE WO PROCEDURE: CT head and CT cervical spine without contrast. TECHNIQUE: Multiple contiguous axial images were obtained through the brain and cervical spine without the use of intravenous contrast. Sagittal and coronal reformations through the cervical spine were then performed. Auto Exposure Controls were utilized during the CT exam to meet ALARA standards for radiation dose reduction. INDICATION: Fall while on blood thinners. COMPARISON is made with prior exam of 06/20/2021. FINDINGS: There is prominence of the ventricles and sulci. There is chronic microvascular ischemic disease. There is no hydrocephalus. There is no midline shift. There is no mass, hemorrhage or extra-axial fluid collection. The calvarium is intact. The sinuses and mastoid air cells are clear. The alignment of the cervical spine is normal. The vertebral body heights are well-maintained. There is multilevel degenerative disc disease and posterior facet arthropathy. There is no fracture or traumatic subluxation. The odontoids intact. The lateral masses are well-aligned. Prevertebral soft tissues are within normal limits. IMPRESSION: Atrophy and some chronic microvascular ischemic disease without acute intracranial abnormality. Moderate cervical spondylosis and multilevel degenerative disc disease without acute fracture or traumatic subluxation. Dictated on workstation # [id number] Dict: 03/14/22 0926 Trans: 03/14/22 0936 [facility] [phone] Interpreted by: SHAYAN JESSICA MD Electronically signed by: Departure Impression Primary Impression: Musculoskeletal pain Disposition: HOME, SELF-CARE Condition: Stable Departure-Patient Inst. Decision time for Depature: 09:44 Referrals: DAYA VILLEGAS DO (PCP/Family) Primary Care Physician Patient Instructions: Acute Pain, Adult Add. Discharge Instructions: use the hydrocodone every 6 hours as needed for pain. You can take ONE additional 325mg (regular strength) Tylenol with the hydrocodone. Over the counter Biofreeze gel or other muscle rub ointment or Salon Pas pain patches will help with muscle pains. Please follow up with Dr Villegas. Return to the Emergency Department for any new, concerning or emergent complaints. Scripts Hydrocodone/Acetaminophen (Hydrocodone-Acetamin 5-325 mg) 5 Mg-325 Mg Tablet 1 TAB PO Q6H PRN for PAIN-MODERATE (5-7), #8 TAB Prov: MELINDA GAGNON MD 03/14/22 MELINDA GAGNON MD Mar 14, 2022 08:43
[2022-03-14] MEDS ORDERED: HYDROcodone/APAP 5 MG/325 MG (LORTAB) TAB PO ONE (09:15)
--- NOTE | 2022-03-14 09:34 | Diagnostic Imaging Report ---
INDICATION: Pain. COMPARISON is made with prior exam of 09/29/2021 FINDINGS: There is cardiomegaly. There is venous congestion. There is no pleural effusion or pneumothorax. The mediastinum is unremarkable. Pacemaker overlies the left hemithorax IMPRESSION: Cardiomegaly and mild central pulmonary venous congestion. Dictated by: Dictated on workstation # [id number]
--- NOTE | 2022-03-14 09:37 | Diagnostic Imaging Report ---
PROCEDURE: CT head and CT cervical spine without contrast. TECHNIQUE: Multiple contiguous axial images were obtained through the brain and cervical spine without the use of intravenous contrast. Sagittal and coronal reformations through the cervical spine were then performed. Auto Exposure Controls were utilized during the CT exam to meet ALARA standards for radiation dose reduction. INDICATION: Fall while on blood thinners. COMPARISON is made with prior exam of 06/20/2021. FINDINGS: There is prominence of the ventricles and sulci. There is chronic microvascular ischemic disease. There is no hydrocephalus. There is no midline shift. There is no mass, hemorrhage or extra-axial fluid collection. The calvarium is intact. The sinuses and mastoid air cells are clear. The alignment of the cervical spine is normal. The vertebral body heights are well-maintained. There is multilevel degenerative disc disease and posterior facet arthropathy. There is no fracture or traumatic subluxation. The odontoids intact. The lateral masses are well-aligned. Prevertebral soft tissues are within normal limits. IMPRESSION: Atrophy and some chronic microvascular ischemic disease without acute intracranial abnormality. Moderate cervical spondylosis and multilevel degenerative disc disease without acute fracture or traumatic subluxation. Dictated by: Dictated on workstation # [id number]
[2022-03-14] MEDS ORDERED: ACHD5005 PO (09:47)
[2022-03-14 10:02] VITALS: BP 185/115
== END 2022-03-14 10:02 | disposition home or self-care (01) ==
LOC: ER 08:17 → EDUNIT# 08:17 → ER 10:02
DX: R07.89 Other chest pain (principal)
CPT/HCPCS: 70450; 71045; 72125

== ENCOUNTER 2022-03-16 13:16 | Inpatient (IN) | payer MEDICARE ==
[~2022-03-16] VITALS: Ht 175 cm; Wt 63.9 kg
[2022-03-16] VITALS (10 sets, daily range): BP systolic 129–175; BP diastolic 66–92
--- NOTE | 2022-03-16 13:41 | ED General ---
General Chief Complaint: General Problems/Pain Stated Complaint: DIZZINESS/VOMITING Source of Information: Patient, EMS Exam Limitations: No Limitations History of Present Illness Date Seen by Provider: Mar 16, 2022 Time Seen by Provider: 13:28 Initial Comments Patient is an 81-year-old female who presents to the emergency department today with a chief complaint of right shoulder pain, nausea and vomiting. I saw the patient 2 days ago after a fall at home. She had fallen onto her right side. We did CAT scans of the head and cervical spine as well as a chest x-ray. Imaging studies did not show any evidence of acute pathology. She was given some hydrocodone for pain. Reportedly she got up at 6 AM this morning took some hydrocodone and subsequently ate a piece of toast. She states she has been vomiting but when queried she states she only vomited 1 time. She has not eaten anything today. She tells me she has had orange juice since as well as "a big jug of water". She looks clinically very dry on examination. Her vital signs are stable. She is quite apprehensive to even light touch. However when distracted I can put a significant amount of pressure over the bony prominences of her right shoulder, right scapula, right clavicle without any discomfort to the patient. I palpated the cervical thoracic and lumbar spine and the patient did not have any complaints of pain. There is no bruising to the thorax or right shoulder or anterior chest wall. There is no swelling. She is neurovascularly intact to the right upper extremity. She lives at home with his significant other. She states that she did not feel like he could handle her while she was vomiting. Caregiver had not shown up today they come at either 2:00 or 4:00 in the afternoon she cannot remember. She denies shortness of breath. She denies chest pain. No abdominal pain. No problems with urination. No diarrhea. All other review of systems reviewed and negative except as stated. Timing/Duration: 1-2 Days Severity: Moderate Modifying Factors: worse with Movement Associated Systoms: Malaise, Nausea/Vomiting Allergies and Home Medications Allergies Coded Allergies: Penicillins (Verified Allergy, Unknown, 06/23/21) pineapple (Verified Allergy, Unknown, 06/23/21) Patient Home Medication List Home Medication List Reviewed: Yes Amiodarone HCl (Amiodarone HCl) 200 Mg Tablet, 200 MG PO BID Prescribed by: DAYA VILLEGAS on 10/10/21 05 Atorvastatin Calcium (Atorvastatin Calcium) 20 Mg Tablet, 20 MG PO DAILY, (Reported) Entered as Reported by: KATRINA CRUZ on 09/09/20 1602 Cholestyramine/Aspartame (Prevalite Packet) 4 Gm Powd.pack, 4 GM PO BID WITH MEALS PRN for DIARRHEA Prescribed by: DAYA VILLEGAS on 10/10/21550 Digoxin (Digox) 125 Mcg Tablet, 0.125 MG PO DAILY Prescribed by: DAYA VILLEGAS on 10/10/21550 Diltiazem HCl (Diltiazem 24Hr Cd) 240 Mg Cap.er.24h, 240 MG PO DAILY, (Reported) Entered as Reported by: KATRINA CRUZ on 09/30/21 155 Furosemide (Furosemide) 40 Mg Tablet, 40 MG PO DAILY Prescribed by: DAYA VILLEGAS on 10/10/21550 Gabapentin (Gabapentin) 100 Mg Capsule, 100 MG PO BID Prescribed by: DAYA VILLEGAS on 10/10/21550 Hydrocodone/Acetaminophen (Hydrocodone-Acetamin 5-325 mg) 5 Mg-325 Mg Tablet, 1 TAB PO Q6H PRN for PAIN-MODERATE (5-7) Prescribed by: MELINDA GAGNON on 03/14/22 0947 Lactobacillus Acidophilus/Pect (Acidophilus-Pectin Capsule) 1 Each Capsule, 2 EACH PO TIDWM Prescribed by: DAYA VILLEGAS on 10/10/21550 Levothyroxine Sodium (Levothyroxine Sodium) 75 Mcg Tablet, 75 MCG PO DAILY, (Reported) Entered as Reported by: HAMIDA JENKINS on 11/07/18 1204 Metoprolol Succinate (Metoprolol Succinate) 100 Mg Tab.er.24h, 100 MG PO DAILY Prescribed by: DAYA VILLEGAS on 10/10/21 05 Potassium Chloride (K-Tab ER) 10 Meq Tablet.er, 20 MEQ PO DAILY, (Reported) Entered as Reported by: SAJI COONEY on 10/06/20 1452 Rivaroxaban (Xarelto) 20 Mg Tablet, 20 MG PO DAILY, (Reported) Entered as Reported by: LIZZY WHEELER on 06/10/21 0956 Review of Systems Review of Systems Constitutional: see HPI, dizziness, malaise EENTM: no symptoms reported Respiratory: no symptoms reported Cardiovascular: no symptoms reported Gastrointestinal: nausea, vomiting Genitourinary: no symptoms reported Musculoskeletal: joint pain (right shoulder) Skin: no symptoms reported Psychiatric/Neurological: Other (dizziness) All Other Systems Reviewed Negative Unless Noted: Yes Past Vkyiaxc-Mkhvzn-Unfrhz Hx Immunizations Up To Date Tetanus Booster (TDap): Unknown PED Vaccines UTD: No First/Initial COVID19 Vaccinat: october 2020 Second COVID19 Vaccination Darryl: november 2020 Third COVID19 Vaccination Date: MAY 2021 Seasonal Allergies Seasonal Allergies: Yes Past Medical History Surgery/Hospitalization HX: 1978 RT[facility], 06/28/21 RTKR, [facility] 1999, INGUINAL HERNIA REPAIR, INTROCCULAR IMPLANTS, PACEMAKER, STENTS , VALVULAR REPLACMENT Surgeries: Yes (RIGHT INGUINAL HERNIA REPAIR, 1978 RIGHT KNEE SURGERY, [facility] 1999) Coronary Stent, Hysterectomy, Pacemaker, Valve Replacement Respiratory: No Tuberculosis Currently Using CPAP: No Currently Using BIPAP: No Cardiac: Yes (PACEMAKER, VALVE REPLACED) Atrial Fibrillation, Coronary Artery Disease, High Cholesterol, Hypertension Neurological: No Dementia, Traumatic Brain Injury Reproductive Disorders: No Female Reproductive Disorders: Denies 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 No Pertinent Family Hx Physical Exam Vital Signs Vital Signs - First Documented 03/16/22 13:20 Temp 37.7 Pulse 73 Resp 20 B/P (MAP) 158/92 (114) Pulse Ox 99 Capillary Refill : Height, Weight, BMI Height: 5'9.00" Weight: 171lbs. 9.0oz. 77.250983ro; 20.00 BMI Method:Stated General Appearance: Chronically ill, Thin Eyes: Bilateral Eye Normal Inspection, Bilateral Eye PERRL, Bilateral Eye EOMI HEENT: PERRL/EOMI, Other (very dry oral mucosa) Neck: Normal Inspection, Non Tender Respiratory: Lungs Clear, Normal Breath Sounds, No Accessory Muscle Use, No Respiratory Distress Cardiovascular: Regular Rate, Rhythm, Normal Peripheral Pulses Gastrointestinal: Non Tender, Soft Extremity: Normal Capillary Refill, Normal Inspection Neurologic/Psychiatric: Alert, No Motor/Sensory Deficits, Normal Mood/Affect Skin: Normal Color, Warm/Dry Procedures/Interventions Date of ETT Placement: Sep 10, 2020 Time of ETT Placement: 0930 Suture Size: 4-0 Progress/Results/Core Measures Suspected Sepsis SIRS Temperature: Pulse: Respiratory Rate: Laboratory Tests 03/16/22 13:40: White Blood Count 10.7 Blood Pressure / Mean: Laboratory Tests 03/16/22 13:40: Creatinine 1.57H, INR Comment 1.4, Platelet Count 281, Total Bilirubin 1.0 Results/Orders Lab Results Laboratory Tests Test 03/16/22 13:40 Range/Units White Blood Count 10.7 4.3-11.0 10^3/uL Red Blood Count 4.54 3.80-5.11 10^6/uL Hemoglobin 13.5 11.5-16.0 g/dL Hematocrit 41 35-52 % Mean Corpuscular Volume 90 80-99 fL Mean Corpuscular Hemoglobin 30 25-34 pg Mean Corpuscular Hemoglobin Concent 33 32-36 g/dL Red Cell Distribution Width 14.7 H 10.0-14.5 % Platelet Count 281 130-400 10^3/uL Mean Platelet Volume 9.5 9.0-12.2 fL Immature Granulocyte % (Auto) 0 % Neutrophils (%) (Auto) 72 42-75 % Lymphocytes (%) (Auto) 16 12-44 % Monocytes (%) (Auto) 10 0-12 % Eosinophils (%) (Auto) 1 0-10 % Basophils (%) (Auto) 1 0-10 % Neutrophils # (Auto) 7.8 1.8-7.8 10^3/uL Lymphocytes # (Auto) 1.7 1.0-4.0 10^3/uL Monocytes # (Auto) 1.1 H 0.0-1.0 10^3/uL Eosinophils # (Auto) 0.1 0.0-0.3 10^3/uL Basophils # (Auto) 0.1 0.0-0.1 10^3/uL Immature Granulocyte # (Auto) 0.0 0.0-0.1 10^3/uL Prothrombin Time 17.4 H 12.2-14.7 SEC INR Comment 1.4 0.8-1.4 Activated Partial Thromboplast Time 34 24-35 SEC Sodium Level 136 135-145 MMOL/L Potassium Level 3.0 L 3.6-5.0 MMOL/L Chloride Level 92 L 98-107 MMOL/L Carbon Dioxide Level 34 H 21-32 MMOL/L Anion Gap 10 5-14 MMOL/L Blood Urea Nitrogen 24 H 7-18 MG/DL Creatinine 1.57 H 0.60-1.30 MG/DL Estimat Glomerular Filtration Rate 33 BUN/Creatinine Ratio 15 Glucose Level 75 70-105 MG/DL Calcium Level 9.3 8.5-10.1 MG/DL Corrected Calcium 9.5 8.5-10.1 MG/DL Magnesium Level 1.8 1.6-2.4 MG/DL Total Bilirubin 1.0 0.1-1.0 MG/DL Aspartate Amino Transf (AST/SGOT) 25 5-34 U/L Alanine Aminotransferase (ALT/SGPT) 13 0-55 U/L Alkaline Phosphatase 113 40-136 U/L Myoglobin 89.8 10.0-92.0 NG/ML Troponin I 0.049 H <0.028 NG/ML Total Protein 7.2 6.4-8.2 GM/DL Albumin 3.8 3.2-4.5 GM/DL My Orders Orders - MELINDA GAGNON MD Cbc With Automated Diff (03/16/22 13:32) Magnesium (03/16/22 13:32) Chest 1 View, Ap/Pa Only (03/16/22 13:32) Ekg Tracing (03/16/22 13:32) Comprehensive Metabolic Panel (03/16/22 13:32) Myoglobin Serum (03/16/22 13:32) Protime With Inr (03/16/22 13:32) Partial Thromboplastin Time (03/16/22 13:32) O2 (03/16/22 13:32) Monitor-Rhythm Ecg Trace Only (03/16/22 13:32) Lipid Panel (03/17/22 06:00) Ed Iv/Invasive Line Start (03/16/22 13:32) Troponin I [place] (03/16/22 13:32) Humerus, Right, 2 Views (03/16/22 13:32) Aspirin Chewable Tablet (Baby Aspirin Ch (03/16/22 13:45) Ns Iv 500 Ml (Sodium Chloride 0.9%) (03/16/22 13:45) Medications Given in ED Current Medications Medications Dose Ordered Sig/Robbin Route Start Time Stop Time Status Last Admin Dose Admin Aspirin 324 mg ONCE ONCE PO 03/16/22 13:45 03/16/22 13:46 DC 03/16/22 13:49 324 MG Vital Signs/I&O 03/16/22 13:20 Temp 37.7 Pulse 73 Resp 20 B/P (MAP) 158/92 (114) Pulse Ox 99 Capillary Refill : Progress Note : Time: 13:20 Progress Note Noted that the patient had slight elevation in her troponin 0.049, review of the medical record shows that she had some elevation as well in September which resulted in a heart cath. Dr. Dixon's documentation showed that she has nonobstructive disease and a patent stent. She does have fairly significant widening of her QRS pattern on EKG today that seems predominant with some normal-appearing interspersed QRS complexes. She has a prolonged QT intervals at 569. It is overall a paced rhythm, nonspecific ST-T wave changes in lead V4 and lead V5 which is also different from September. I did speak to Sandra the social media project manager who stated she will come down and see the patient and revisit the idea of longterm placement but I do believe at this time it would be appropriate for admission to follow the troponin. We will speak with Dr. Villegas when she is available. ECG Initial ECG Impression Date: Mar 16, 2022 Initial ECG Impression Time: 13:45 Initial ECG Rate: 61 Comment ventricular paced rhythm; wide QT interval at 569; QRS 216 Diagnostic Imaging Diagonstic Imaging: Xray Plain Films/CT/US/NM/MRI: chest Comments [facility] [place] NAME: JAZMÍN GRIDER Hank [facility] REC#: [id number] PT STATUS: REG ER : 1940 PHYSICIAN: MELINDA GAGNON MD ADMIT DATE: 03/16/22/ER Draft Date of Exam:03/16/22 CHEST 1 VIEW, AP/PA ONLY EXAMINATION: Chest, one view. HISTORY: Chest pain. COMPARISON: 03/24/2022. FINDINGS: Heart is enlarged. There is a transcatheter valve replacement. A loop recorder is present. Left subclavian pacemaker is present. There is mild edema. No pneumothorax. IMPRESSION: 1. Enlarged heart with mild edema. Dictated on workstation # [id number] Dict: 03/16/22 1451 Trans: 03/16/22 1453 [id number] Interpreted by: JOAQUÍN DOS SANTOS MD Electronically signed by: Diagonstic Imaging: Xray Comments [facility] [place] NAME: JAZMÍN GRIDER [facility] REC#: [id number] PT STATUS: REG ER : 1940 PHYSICIAN: MELINDA GAGNON MD ADMIT DATE: 03/16/22/ER Draft Date of Exam:03/16/22 HUMERUS, RIGHT, 2 VIEWS INDICATION: Fall with worsening right shoulder pain and humeral pain. TECHNIQUE/COMPARISON: AP and lateral views of the right humerus were obtained. There is no previous study for comparison. FINDINGS: There is an old healed fracture of the right humeral head and neck. There is no acute fracture or acute bony abnormality. IMPRESSION: Old healed fracture deformity of the right humeral head and neck with no acute appearing abnormality. Dictated on workstation # [id number] Dict: 03/16/22 1453 Trans: 03/16/22 1455 [id number] Interpreted by: BHAVESH CHIANG MD Electronically signed by: Departure Communication (Admissions) Time/Spoke to Admitting Phy: 15:[address] Bandar mo do que'd orders Time/Spoke to Consulting Phy: 15:[address] Dixon Impression Primary Impression: Shoulder pain, acute Qualified Codes: M25.511 - Pain in right shoulder Additional Impressions: Elevated troponin History of coronary artery disease Disposition: ADMITTED INPATIENT Condition: Stable Admissions Decision to Admit Reason: Admit from ER (General) Decision to Admit/Date: Mar 16, 2022 Time/Decision to Admit Time: 15:23 Departure-Patient Inst. Referrals: DAYA VILLEGAS DO (PCP/Family) Primary Care Physician MELINDA GAGNON MD Mar 16, 2022 13:41
[2022-03-16] MEDS ORDERED: ASPIRIN 81 MG CHEW (CHILDREN'S ASA) PO ONE (13:45)
[2022-03-16] MEDS: NS IV 500 ML 500 ML IV SCH ×2 (13:49→16:29)
[2022-03-16 13:58] LABS: BASOPHILS # (AUTO) 0.1 10^3/uL (0.0-0.1); BASOPHILS % (AUTO) 1 % (0-10); EOSINOPHILS # (AUTO) 0.1 10^3/uL (0.0-0.3); EOSINOPHILS % (AUTO) 1 % (0-10); HEMATOCRIT 41 % (35-52); HEMOGLOBIN 13.5 g/dL (11.5-16.0); LYMPHOCYTES # (AUTO) 1.7 10^3/uL (1.0-4.0); LYMPHOCYTES % (AUTO) 16 % (12-44); MEAN CORPUSCULAR HEMOGLOBIN 30 pg (25-34); MEAN CORPUSCULAR HGB CONC 33 g/dL (32-36); MEAN CORPUSCULAR VOLUME 90 fL (80-99); MEAN PLATELET VOLUME 9.5 fL (9.0-12.2); MONOCYTES # (AUTO) 1.1 10^3/uL (0.0-1.0); MONOCYTES % (AUTO) 10 % (0-12); NEUTROPHILS # (AUTO) 7.8 10^3/uL (1.8-7.8); NEUTROPHILS % (AUTO) 72 % (42-75); PLATELET COUNT 281 10^3/uL (130-400); WHITE BLOOD COUNT 10.7 10^3/uL (4.3-11.0)
[2022-03-16 14:12] LABS: ALBUMIN 3.8 GM/DL (3.2-4.5)
[2022-03-16 14:14] LABS: CALCIUM 9.3 MG/DL (8.5-10.1); INR 1.4 (0.8-1.4); PROTHROMBIN TIME PATIENT 17.4 SEC (12.2-14.7)
[2022-03-16 14:15] LABS: TOTAL PROTEIN 7.2 GM/DL (6.4-8.2)
[2022-03-16 14:18] LABS: CREATININE SERUM 1.57 MG/DL (0.60-1.30)
[2022-03-16 14:21] LABS: MAGNESIUM 1.8 MG/DL (1.6-2.4)
--- NOTE | 2022-03-16 14:53 | Diagnostic Imaging Report ---
EXAMINATION: Chest, one view. HISTORY: Chest pain. COMPARISON: 03/24/2022. FINDINGS: Heart is enlarged. There is a transcatheter valve replacement. A loop recorder is present. Left subclavian pacemaker is present. There is mild edema. No pneumothorax. IMPRESSION: 1. Enlarged heart with mild edema. Dictated by: Dictated on workstation # [id number]
--- NOTE | 2022-03-16 14:56 | Diagnostic Imaging Report ---
INDICATION: Fall with worsening right shoulder pain and humeral pain. TECHNIQUE/COMPARISON: AP and lateral views of the right humerus were obtained. There is no previous study for comparison. FINDINGS: There is an old healed fracture of the right humeral head and neck. There is no acute fracture or acute bony abnormality. IMPRESSION: Old healed fracture deformity of the right humeral head and neck with no acute appearing abnormality. Dictated by: Dictated on workstation # [id number]
[2022-03-16] MEDS ORDERED: BISACODYL 10 MG SUPP (DULCOLAX) PR PRN (16:45)
[2022-03-16] MEDS ORDERED: ANTACID SUSP 30 ML UDC (MYLANTA) PO PRN (16:45)
[2022-03-16] MEDS ORDERED: morphine INJ 4 MG/ML 1 ML (VIAL/SYRINGE) IV PRN (16:45)
[2022-03-16] MEDS ORDERED: LORazepam ORAL CONCENTRATE 2 MG/ML 30 ML (ATIVAN) PO PRN (16:45)
[2022-03-16] MEDS ORDERED: polyethylene glycoL POWDER 17 GM (MIRALAX) PACK PO PRN (16:45)
[2022-03-16] MEDS ORDERED: WATER (STERILE) FOR INJ 10 ML BTL INJ SCH (16:45)
[2022-03-16] MEDS ORDERED: ZIPRASIDONE 20 MG INJ (GEODON) VIAL IM PRN (16:45)
[2022-03-16] MEDS ORDERED: diphenhydrAMINE 50 MG/ML INJ (BENADRYL) IVP PRN (16:45)
[2022-03-16] MEDS ORDERED: MILK OF MAGNESIA 400 MG/5 ML 30 ML UDC PO PRN (16:45)
[2022-03-16] MEDS ORDERED: LACTULOSE SYRUP 10GM/15ML (ENULOSE) 30ML UDC PO PRN (16:45)
[2022-03-16] MEDS ORDERED: NITROGLYCERIN 0.4 MG SL TABS BTL 25'S SL PRN (16:45)
[2022-03-16] MEDS ORDERED: MELATONIN 3 MG TABLET PO PRN (16:45)
[2022-03-16] MEDS ORDERED: ONDANSETRON 4 MG/2 ML (SDV) Z0FRAN IV PRN (16:45)
[2022-03-16] MEDS ORDERED: ONDANSETRON 4 MG (ZOFRAN) ORAL DISSOLVE TAB PO PRN (16:45)
[2022-03-16] MEDS ORDERED: ACETAMINOPHEN 325 MG TABLET PO PRN (16:45)
[2022-03-16] MEDS ORDERED: CALCIUM CARBONATE 500 MG (TUMS) TAB.CHEW PO PRN (16:45)
[2022-03-16] MEDS ORDERED: PATIENT MAY USE OWN MEDS, ALL PO SCH (16:45)
[2022-03-16] MEDS ORDERED: diphenhydrAMINE 25 MG TAB (BENADRYL) PO PRN (16:45)
[2022-03-16] MEDS: DICLOFENAC 1% GEL 100 GM (VOLTAREN) TUBE TOP SCH ×2 (17:29→19:45)
[2022-03-16] MEDS: RIVAROXABAN 20 MG TABLET (XARELTO) PO SCH (17:29)
--- NOTE | 2022-03-16 17:33 | History & Physical ---
History of Present Illness HPI/Chief Complaint Chief complaint: Weakness with recent fall with chest pain and elevated troponin History of present illness: This is an 81-year-old female clinic patient of [facility] with multiple comorbidities of which most severe is cardiac who Dr. Dixon manages who presented to the ER for the second time 2 days with chest pain found to have elevated troponin. She has had a major decline in the last 6 months but unwilling to have any plan for fdc placement. She lives with her significant other. She had bruised her knees and hit her shoulder when she fell last time. I did have neonatal social worker visit with her of which she has visited before when her significant other Demetrius was admitted a few weeks ago. Source: patient, family, old records Exam Limitations: no limitations Date Seen 03/16/22 Time Seen by a Provider: 18:15 Attending Physician Lilliam Portillo DO PCP Admitting Physician: Lilliam Portillo DO Attending Physician: Lilliam Portillo DO Referring Physician Date of Admission Mar 16, 2022 at 15:45 Home Medications & Allergies Home Medications Reviewed patient Home Medication Reconciliation performed by pharmacy medication reconciliations pipeline technician and/or nursing. Patients Allergies have been reviewed. 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) Smoking Status: Never a Smoker Recent Foreign Travel: No Contact w/other who traveled: No Recent Hopitalizations: No Immunizations Up To Date Tetanus Booster (TDap): Unknown Pediatric: No Date of Pneumonia Vaccine: Apr 12, 2018 Date of Influenza Vaccine: Apr 08, 2021 Seasonal Allergies Seasonal Allergies: Yes Past Medical History Surgeries: Coronary Stent, Hysterectomy, Pacemaker, Valve Replacement Respiratory: Pneumonia Currently Using CPAP: No Currently Using BIPAP: No Cardiac: Atrial Fibrillation, Coronary Artery Disease, High Cholesterol, Hypertension, Valvular Heart Disease Neurological: Dementia, Traumatic Brain Injury Reproductive: No Sexually Transmitted Disease: No HIV/AIDS: No Female Reproductive Disorders: Denies Hysterectomy Musculoskeletal: Arthritis, Chronic Back Pain Endocrine: Hypothyroidsim HEENT: Cataract Hearing Impairment: Hard of Hearing, Hearing Aide Right, Hearing Aide Left History of Blood Disorders: No Adverse Reaction to Blood Rogers: No Family History Patient reports no known family medical history. No Pertinent Family Hx Review of Systems Constitutional: see HPI, dizziness, malaise, weakness EENTM: no symptoms reported Respiratory: no symptoms reported Cardiovascular: chest pain Gastrointestinal: no symptoms reported Genitourinary: no symptoms reported Musculoskeletal: back pain, joint pain Skin: no symptoms reported Psychiatric/Neurological: No Symptoms Reported All Other Systems Reviewed Negative Unless Noted: Yes Physical Exam Physical Exam Vital Signs Vital Signs - First Documented 03/16/22 03/16/22 03/16/22 13:20 16:30 21:18 Temp 37.7 Pulse 73 Resp 20 B/P (MAP) 158/92 (114) Pulse Ox 99 O2 Delivery Room Air O2 Flow Rate 2.00 Capillary Refill : Height, Weight, BMI Height: 5'9.00" Weight: 171lbs. 9.0oz. 77.185680xk; 20.24 BMI Method:Stated General Appearance: No Apparent Distress, Chronically ill, Thin Eyes: Bilateral Eye Normal Inspection, Bilateral Eye PERRL, Bilateral Eye EOMI HEENT: PERRL/EOMI, Normal ENT Inspection, Pharynx Normal, Other (very dry oral mucosa) Neck: Normal Inspection, Non Tender Respiratory: Chest Non Tender, Lungs Clear, Normal Breath Sounds, No Accessory Muscle Use, No Respiratory Distress Cardiovascular: Regular Rate, Rhythm, No Edema, Normal Peripheral Pulses, Systolic Murmur Gastrointestinal: Non Tender, Soft Back: Normal Inspection, No CVA Tenderness, No Vertebral Tenderness Extremity: Normal Capillary Refill, Normal Inspection Neurologic/Psychiatric: Alert, Oriented x3, No Motor/Sensory Deficits, Normal Mood/Affect, Depressed Affect, Disoriented Skin: Normal Color, Warm/Dry Lymphatic: No Adenopathy Results Results/Procedures Labs Laboratory Tests 03/16/22 13:40 03/17/22 04:21 Patient resulted labs reviewed. Assessment/Plan Admission Diagnosis Assessment: Chest pain with elevated troponin consistent with NSTEMI Chronic debility with recent falls Chronic shortness of breath with chest pain requiring inpatient stay prior to rehab admit Previous acute respiratory distress on 06/20/2021 requiring ICU transfer out of rehab at that time History of PNA on CXR 06/20/2021 and PCT elevated but negative the day before with CXR and PCT normal Elevated BNP acute on chronic CHF Pacemaker Previous TVAR for aortic stenosis managed by cardiology AF with RVR 10/07/2021 requiring multiple medication changes but did not require cardioversion and currently stable OAC maintained Dementia SLUMS Advanced age s/p right knee replacement June 2021 h/o SIVA s/p critical illness 09/2020 requiring right ureter stent for obstruction of uncertain etiology Valvular heart disease History of HTN with severe OOC Hypothyroidism Presbycusis 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 Dixon appreciated Social work consult Supportive care Admission Status: Inpatient Order (span 2 midnights) Reason for Inpatient Admission: NSTEMI with falls Diagnosis/Problems Diagnosis/Problems (1) NSTEMI (non-ST elevated myocardial infarction) (2) Musculoskeletal pain Status: Acute (3) History of coronary artery disease Status: Acute (4) Elevated troponin Status: Acute (5) Shoulder pain, acute Status: Acute Qualifiers: Laterality: right Qualified Codes: M25.511 - Pain in right shoulder (6) Hypokalemia Status: Acute (7) Chest pain Status: Resolved Resolution Date/Time: 10/01/21 @ 17:11 (8) Atrial fibrillation Status: Chronic (9) Congestive heart failure Status: Acute (10) Debility Status: Acute LILLIAM PORTILLO DO Mar 16, 2022 17:32
[2022-03-16] MEDS ORDERED: KCL 20 MEQ TAB (K-DUR) PO SCH (18:30)
[2022-03-16] MEDS ORDERED: RT-ALBUTEROL SULF 2.5 MG/3 ML PRE-MIX VIAL INH PRN (19:15)
[2022-03-16] MEDS: SENNOSIDES 8.6 MG (SENOKOT) TAB PO SCH (21:00)
[2022-03-16] MEDS: DOCUSATE SODIUM 100 MG (COLACE) CAP PO SCH (21:00)
[2022-03-17] VITALS (7 sets, daily range): BP systolic 121–179; BP diastolic 65–85
[2022-03-17 05:11] LABS: BASOPHILS # (AUTO) 0.1 10^3/uL (0.0-0.1); BASOPHILS % (AUTO) 1 % (0-10); EOSINOPHILS # (AUTO) 0.2 10^3/uL (0.0-0.3); EOSINOPHILS % (AUTO) 2 % (0-10); HEMATOCRIT 38 % (35-52); HEMOGLOBIN 12.2 g/dL (11.5-16.0); LYMPHOCYTES # (AUTO) 1.9 10^3/uL (1.0-4.0); LYMPHOCYTES % (AUTO) 20 % (12-44); MEAN CORPUSCULAR HEMOGLOBIN 30 pg (25-34); MEAN CORPUSCULAR HGB CONC 32 g/dL (32-36); MEAN CORPUSCULAR VOLUME 92 fL (80-99); MONOCYTES % (AUTO) 10 % (0-12); NEUTROPHILS # (AUTO) 6.4 10^3/uL (1.8-7.8); NEUTROPHILS % (AUTO) 67 % (42-75); PLATELET COUNT 257 10^3/uL (130-400); WHITE BLOOD COUNT 9.6 10^3/uL (4.3-11.0)
[2022-03-17 05:24] LABS: ALBUMIN 3.2 GM/DL (3.2-4.5); POTASSIUM 2.7 MMOL/L (3.6-5.0)
[2022-03-17 05:25] LABS: CALCIUM 8.6 MG/DL (8.5-10.1)
[2022-03-17 05:26] LABS: TOTAL PROTEIN 6.1 GM/DL (6.4-8.2)
[2022-03-17 05:28] LABS: BILIRUBIN,TOTAL 0.7 MG/DL (0.1-1.0)
[2022-03-17 05:30] LABS: CREATININE SERUM 1.45 MG/DL (0.60-1.30)
--- NOTE | 2022-03-17 06:52 | Progress Note ---
Subjective Date Seen by a Provider: Mar 17, 2022 Subjective/Events-last exam Doing better PT OT ordered VCV is set for acceptance No falls Pain meds given Review of Systems General: Fatigue, Malaise Musculoskeletal: arm pain Objective Exam Last Set of Vital Signs Vital Signs Date Time Temp Pulse Resp B/P (MAP) Pulse Ox O2 Delivery O2 Flow Rate FiO2 03/17/22 04:00 60 15 121/65 (83) 97 Nasal Cannula 2.00 03/17/22 02:54 36.5 Capillary Refill : I&O Intake and Output 03/17/22 00:00 Intake Total 800 ml Balance 800 ml Intake Oral 300 ml IV Total 500 ml # Voids 2 Daily Weight Change No General: Alert, Oriented X3, Cooperative, No Acute Distress Lungs: Clear to Auscultation, Normal Air Movement Heart: Other (irr irr) Psych/Mental Status: Mental Status NL, Mood NL Results Lab Laboratory Tests 03/16/22 13:40: White Blood Count 10.7, Red Blood Count 4.54, Hemoglobin 13.5, Hematocrit 41, Mean Corpuscular Volume 90, Mean Corpuscular Hemoglobin 30, Mean Corpuscular Hemoglobin Concent 33, Red Cell Distribution Width 14.7H, Platelet Count 281, Mean Platelet Volume 9.5, Immature Granulocyte % (Auto) 0, Neutrophils (%) (Auto) 72, Lymphocytes (%) (Auto) 16, Monocytes (%) (Auto) 10, Eosinophils (%) (Auto) 1, Basophils (%) (Auto) 1, Neutrophils # (Auto) 7.8, Lymphocytes # (Auto) 1.7, Monocytes # (Auto) 1.1H, Eosinophils # (Auto) 0.1, Basophils # (Auto) 0.1, Immature Granulocyte # (Auto) 0.0, Prothrombin Time 17.4H, INR Comment 1.4, Activated Partial Thromboplast Time 34, Sodium Level 136, Potassium Level 3.0L, Chloride Level 92L, Carbon Dioxide Level 34H, Anion Gap 10, Blood Urea Nitrogen 24H, Creatinine 1.57H, Estimat Glomerular Filtration Rate 33, BUN/Creatinine Ratio 15, Glucose Level 75, Calcium Level 9.3, Corrected Calcium 9.5, Magnesium Level 1.8, Total Bilirubin 1.0, Aspartate Amino Transf (AST/SGOT) 25, Alanine Aminotransferase (ALT/SGPT) 13, Alkaline Phosphatase 113, Myoglobin 89.8, Troponin I 0.049H, Total Protein 7.2, Albumin 3.8 03/16/22 20:38: Troponin I 0.066H 03/17/22 04:21: White Blood Count 9.6, Red Blood Count 4.14, Hemoglobin 12.2, Hematocrit 38, Mean Corpuscular Volume 92, Mean Corpuscular Hemoglobin 30, Mean Corpuscular Hemoglobin Concent 32, Red Cell Distribution Width 14.7H, Platelet Count 257, Mean Platelet Volume 10.0, Immature Granulocyte % (Auto) 0, Neutrophils (%) (Auto) 67, Lymphocytes (%) (Auto) 20, Monocytes (%) (Auto) 10, Eosinophils (%) (Auto) 2, Basophils (%) (Auto) 1, Neutrophils # (Auto) 6.4, Lymphocytes # (Auto) 1.9, Monocytes # (Auto) 1.0, Eosinophils # (Auto) 0.2, Basophils # (Auto) 0.1, Immature Granulocyte # (Auto) 0.0, Sodium Level 137, Potassium Level 2.7L, Chloride Level 94L, Carbon Dioxide Level 33H, Anion Gap 10, Blood Urea Nitrogen 24H, Creatinine 1.45H, Estimat Glomerular Filtration Rate 36, BUN/Creatinine Ratio 17, Glucose Level 101, Calcium Level 8.6, Corrected Calcium 9.2, Total Bilirubin 0.7, Aspartate Amino Transf (AST/SGOT) 22, Alanine Aminotransferase (ALT/SGPT) 10, Alkaline Phosphatase 102, Troponin I 0.065H, Total Protein 6.1L, Albumin 3.2, Triglycerides Level 155H, Cholesterol Level 163, LDL Cholesterol Direct 112, VLDL Cholesterol 31, HDL Cholesterol 28L Assessment/Plan Assessment/Plan Assess & Plan/Chief Complaint Assessment: Chest pain with elevated troponin consistent with NSTEMI Chronic debility with recent falls Chronic shortness of breath with chest pain requiring inpatient stay prior to rehab admit Previous acute respiratory distress on 06/20/2021 requiring ICU transfer out of rehab at that time History of PNA on CXR 06/20/2021 and PCT elevated but negative the day before with CXR and PCT normal Elevated BNP acute on chronic CHF Pacemaker Previous TVAR for aortic stenosis managed by cardiology AF with RVR 10/07/2021 requiring multiple medication changes but did not require cardioversion and currently stable OAC maintained Dementia SLUMS Advanced age s/p right knee replacement June 2021 h/o SIVA s/p critical illness 09/2020 requiring right ureter stent for obstruction of uncertain etiology Valvular heart disease History of HTN with severe OOC Hypothyroidism Presbycusis 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 Dixon appreciated Social work consult Supportive care [facility] at [place] Diagnosis/Problems Diagnosis/Problems (1) NSTEMI (non-ST elevated myocardial infarction) (2) Musculoskeletal pain Status: Acute (3) History of coronary artery disease Status: Acute (4) Elevated troponin Status: Acute (5) Shoulder pain, acute Status: Acute Qualifiers: Qualified Codes: M25.511 - Pain in right shoulder (6) Hypokalemia Status: Acute (7) Chest pain Status: Resolved Resolution Date/Time: 10/01/21 @ 17:11 (8) Atrial fibrillation Status: Chronic (9) Congestive heart failure Status: Acute (10) Debility Status: Acute DAYA VILLEGAS DO Mar 17, 2022 06:52
[2022-03-17] MEDS ORDERED: MAGNESIUM 1 GM/100 ML IVPB 100 ML IV ONE (07:00)
[2022-03-17] MEDS: KCL 20 MEQ TAB (K-DUR) PO SCH ×3 (08:11→16:56)
[2022-03-17] MEDS: ASPIRIN E.C. 81 MG (ECOTRIN) TAB PO SCH (08:11)
[2022-03-17] MEDS: DOCUSATE SODIUM 100 MG (COLACE) CAP PO SCH ×2 (08:12→20:17)
[2022-03-17] MEDS: SENNOSIDES 8.6 MG (SENOKOT) TAB PO SCH ×2 (08:13→20:17)
[2022-03-17] MEDS: POTASSIUM CL 10MEQ/50ML IVPB 50 ML IV SCH ×7 (08:13→20:50)
[2022-03-17] MEDS: NS IV 500 ML 500 ML IV SCH (08:14)
[2022-03-17] MEDS: DICLOFENAC 1% GEL 100 GM (VOLTAREN) TUBE TOP SCH ×4 (08:20→20:16)
--- NOTE | 2022-03-17 08:39 | Consultation-Cardiology ---
HPI-Cardiology Cardiology Consultation Date of Consultation 03/17/22 Date of Admission Time Seen by Provider: 09:00 Indication: chest pain HPI Patient is an 81 y/o female with history of CAD, AVR, PAF, HTN. Presented to the ER with complaints of bilateral shoulder and chest pain after a fall 2 days ago. Pain reproducible on palpation. Currently complaining of right shoulder pain with movement. Denies any dyspnea or syncope. REports vomiting x 1 2 days ago and chronic diarrhea and weight loss for the past month. 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 Review of Systems-General Review of Systems Constitutional: see HPI, dizziness, malaise, weakness EENTM: no symptoms reported; No blurred vision, No double vision Respiratory: no symptoms reported Cardiovascular: see HPI, chest pain, Hx of Intervention, vascular heart diseas Gastrointestinal: no symptoms reported Genitourinary: no symptoms reported Musculoskeletal: back pain, joint pain Skin: no symptoms reported Psychiatric/Neurological: No Symptoms Reported All Other Systems Reviewed Negative Unless Noted: Yes Reviewed Test Results Reviewed Test Results Lab Laboratory Tests 03/16/22 13:40: White Blood Count 10.7, Red Blood Count 4.54, Hemoglobin 13.5, Hematocrit 41, Mean Corpuscular Volume 90, Mean Corpuscular Hemoglobin 30, Mean Corpuscular Hemoglobin Concent 33, Red Cell Distribution Width 14.7H, Platelet Count 281, Mean Platelet Volume 9.5, Immature Granulocyte % (Auto) 0, Neutrophils (%) (Auto) 72, Lymphocytes (%) (Auto) 16, Monocytes (%) (Auto) 10, Eosinophils (%) (Auto) 1, Basophils (%) (Auto) 1, Neutrophils # (Auto) 7.8, Lymphocytes # (Auto) 1.7, Monocytes # (Auto) 1.1H, Eosinophils # (Auto) 0.1, Basophils # (Auto) 0.1, Immature Granulocyte # (Auto) 0.0, Prothrombin Time 17.4H, INR Comment 1.4, Activated Partial Thromboplast Time 34, Sodium Level 136, Potassium Level 3.0L, Chloride Level 92L, Carbon Dioxide Level 34H, Anion Gap 10, Blood Urea Nitrogen 24H, Creatinine 1.57H, Estimat Glomerular Filtration Rate 33, BUN/Creatinine Ratio 15, Glucose Level 75, Calcium Level 9.3, Corrected Calcium 9.5, Magnesium Level 1.8, Total Bilirubin 1.0, Aspartate Amino Transf (AST/SGOT) 25, Alanine Aminotransferase (ALT/SGPT) 13, Alkaline Phosphatase 113, Myoglobin 89.8, Troponin I 0.049H, Total Protein 7.2, Albumin 3.8 03/16/22 20:38: Troponin I 0.066H 03/17/22 04:21: White Blood Count 9.6, Red Blood Count 4.14, Hemoglobin 12.2, Hematocrit 38, Mean Corpuscular Volume 92, Mean Corpuscular Hemoglobin 30, Mean Corpuscular Hemoglobin Concent 32, Red Cell Distribution Width 14.7H, Platelet Count 257, Mean Platelet Volume 10.0, Immature Granulocyte % (Auto) 0, Neutrophils (%) (Auto) 67, Lymphocytes (%) (Auto) 20, Monocytes (%) (Auto) 10, Eosinophils (%) (Auto) 2, Basophils (%) (Auto) 1, Neutrophils # (Auto) 6.4, Lymphocytes # (Auto) 1.9, Monocytes # (Auto) 1.0, Eosinophils # (Auto) 0.2, Basophils # (Auto) 0.1, Immature Granulocyte # (Auto) 0.0, Sodium Level 137, Potassium Level 2.7L, Chloride Level 94L, Carbon Dioxide Level 33H, Anion Gap 10, Blood Urea Nitrogen 24H, Creatinine 1.45H, Estimat Glomerular Filtration Rate 36, BUN/Creatinine Ratio 17, Glucose Level 101, Calcium Level 8.6, Corrected Calcium 9.2, Magnesium Level 2.0, Total Bilirubin 0.7, Aspartate Amino Transf (AST/SGOT) 22, Alanine Aminotransferase (ALT/SGPT) 10, Alkaline Phosphatase 102, Troponin I 0.065H, Total Protein 6.1L, Albumin 3.2, Triglycerides Level 155H, Cholesterol Level 163, LDL Cholesterol Direct 112, VLDL Cholesterol 31, HDL Cholesterol 28L Physical Exam Physical Exam Vital Signs Vital Signs - First Documented 03/16/22 03/16/22 03/16/22 13:20 16:30 21:18 Temp 37.7 Pulse 73 Resp 20 B/P (MAP) 158/92 (114) Pulse Ox 99 O2 Delivery Room Air O2 Flow Rate 2.00 Capillary Refill : Height, Weight, BMI Height: 5'9.00" Weight: 171lbs. 9.0oz. [id number]; 20.96 BMI Method:Stated General Appearance: No Apparent Distress, Chronically ill, Thin Eyes: Bilateral Eye Normal Inspection, Bilateral Eye PERRL, Bilateral Eye EOMI HEENT: PERRL/EOMI, Normal ENT Inspection, Pharynx Normal, Other (very dry oral mucosa) Neck: Normal Inspection, Non Tender Respiratory: Chest Non Tender, Lungs Clear, Normal Breath Sounds, No Accessory Muscle Use, No Respiratory Distress Cardiovascular: Regular Rate, Rhythm, No Edema, Normal Peripheral Pulses, Systolic Murmur Gastrointestinal: Non Tender, Soft Back: Normal Inspection, No CVA Tenderness, No Vertebral Tenderness Extremity: Normal Capillary Refill, Normal Inspection Neurologic/Psychiatric: Alert, Oriented x3, No Motor/Sensory Deficits, Normal Mood/Affect, Depressed Affect, Disoriented Skin: Normal Color, Warm/Dry Lymphatic: No Adenopathy A/P-Cardiology Admission Diagnosis Shoulder pain s/p fall Chest pain PAF CAD Assessment/Plan s/p fall at home with bilateral shoulder pain. Chest pain, atypical in presentation with bilateral shoulder pain after fall, mild elevation in troponin, non-ST elevation myocardial infarction, history of coronary artery disease with a stent to the LAD, cardiac catheterization was carried out on September 30, 2021 showing patent stents with mild coronary artery disease nonobstructive disease. Will continue on telemetry and continue to monitor Paroxysmal atrial fibrillation, maintained on Xarelto, Toprol XL 100 mg daily, Cardizem CD 240 mg daily, digoxin 0.125 mg daily and Amiodarone 200mg daily. Continue to monitor at this time, monitor heart rate and blood pressure History of severe aortic valve stenosis, status post TAVR done September 06, 2017 in [place] with uneventful deployment of a 26 mm Medtronic Evolut Pro. Most recent 2D Echo 10/12/18 revealing mechanical prothesis present in aortic valve. Peak gradient across prosthetic valve is 26 mmHg, mean gradient 13mmHg, calculated valve area 2.41 cm squared. Mild AR. there is perivalvular regurg, Mod TR, Repeat 2D echo was done on June 20, 2021 showing moderate to severe LVH with normal systolic function, significant deterioration in the aortic valve with a peak gradient of 91 mmHg, valve area 1.4 cm. Mild mitral valve stenosis, pulmonary hypertension with PA pressure 50 to 55 mmHg Repeat 2D echo done September 2021 showed peak gradient of 23 mmHg, mean gradient of 12 mmHg, which is similar to the finding of August 2020, I feel that the echo finding on June 2021 were erroneously high. Patient has severe left ventricular hypertrophy. Congestive heart failure, acute on chronic left ventricular diastolic dysfunction with severe left ventricular hypertrophy. Hypokalemia, replace and continue to monitor. Pulmonary hypertension, no change from baseline. Continue to monitor Mild bilateral carotid stenosis, history of syncope. Last ultrasound was done in July 2018, continue to monitor. Sick sinus syndrome, history of permanent pacemaker. Most recent PPM interragation done February 2022 in office showing good sensing and capturing Continue to monitor. Hypertension, labile blood pressure, difficult to control. Has been using clonidine as needed. Monitor blood pressure. Hyperlipidemia, monitored as outpatient. Hypothyroidism, monitor TSH Thank you for allowing us to participate in the management of Ms. Baker. This is Samra Zhu PA-C, as a scribe for Dr. Dixon. Patient was seen and evaluated with Samra, I interviewed and examined the patient and discussed the management plan with Samra Agree with the current scribed note Patient is an 81-year-old lady with history of generalized weakness, was hospitalized in rehab recently. Return to the hospital with multiple falls upper extremities pain and generalized weakness Cardiac status is extensive as described above, we will continue monitoring and adjust her medication accordingly Patient has aortic valve replacement that has been functioning normally. Continue to monitor blood pressure SAMRA SAAVEDRA Mar 17, 2022 08:39 EDY DIXON MD Mar 17, 2022 16:25
--- NOTE | 2022-03-17 09:46 | Physical Therapy Evaluation ---
PT Evaluation-General Medical Diagnosis Admission Date Mar 16, 2022 at 15:45 Medical Diagnosis: NSTEMI, falls, debility Onset Date: Mar 16, 2022 Therapy Diagnosis Therapy Diagnosis: impaired mobility, strength, endurance Height/Weight Height (Feet): 5 Height (Inches): 9.00 Weight (Pounds): 171 Weight (Ounces): 9.0 Precautions Precautions/Isolations: Fall Prevention, Standard Precautions Referral Physician: Lilliam Portillo DO Reason for Referral: Evaluation/Treatment Medical History Pertinent Medical History: Atrial Fib, CAD, Heart Failure, HTN, Hypothroidism Additional Medical History Past Medical History Surgeries: Coronary Stent, Hysterectomy, Pacemaker, Valve Replacement Respiratory: Pneumonia Currently Using CPAP: No Currently Using BIPAP: No Cardiac: Atrial Fibrillation, Coronary Artery Disease, High Cholesterol, Hypertension, Valvular Heart Disease Neurological: Dementia, Traumatic Brain Injury Reproductive: No Sexually Transmitted Disease: No HIV/AIDS: No Female Reproductive Disorders: Denies Hysterectomy Musculoskeletal: Arthritis, Chronic Back Pain Endocrine: Hypothyroidsim HEENT: Cataract Hearing Impairment: Hard of Hearing, Hearing Aide Right, Hearing Aide Left History of Blood Disorders: No Adverse Reaction to Blood Rogers: No Reviewed History: Yes Social History Current Living Status: Significant Other PT Steps Into Home: 3 Prior Prior Level of Function SCALE: Activities may be completed with or without assistive devices. 2-Ghtokailji-ofykgzm completes the activity by him/herself with no assistance from a helper. 5-Set-up or Clean-up Assistance-helper sets up or cleans up; patient completes activity. [place] assists only prior to or following the activity. 4-Supervision or Touching Assistance-helper provides verbal cues and/or touching/steadying and/or contact guard assistance as patient completes act ivity. Assistance may be provided throughout the activity or intermittently. 3-Partial/Moderate Assistance-helper does LESS THAN HALF the effort. [place] lifts, holds or supports trunk or limbs, but provides less than half the effort. 2-Substantial/Maximal Assistance-helper does MORE THAN HALF the effort. [place] lifts or holds trunk or limbs and provides more than half the effort. 0-Pwdzpragx-ihajwy does ALL the effort. Patient does none of the effort to complete the activity. Or, the assistance of 2 or more helpers is required for the patient to complete the activity. If activity was not attempted, code reason: 7-Patient Refused. 9-Not Applicable-not attempted and the patient did not perform the activity before the current illness, exacerbation or injury. 10-Not Attempted due to Environmental Limitations-(lack of equipment, weather restraints, etc.). 88-Not Attempted due to Medical Conditions or Safety Concerns. unsure, patient cannot seem to communicate this effectively, she does say that she was using a rolling walker at home but it was in bad shape PT Evaluation-Current Subjective Patient in bed pre tx, agrees to PT, has unrated pain in chest and right shoulder Pt/Family Goals none stated Objective Patient Orientation: Person, Place, Situation Attachments: Oxygen, IV ROM/Strength ROM Lower Extremities WNL Strength Lower Extremities LLE (hip flexion 3+/5, knee flexion 4/5, knee extension 4/5, dorsiflexion 4/5), RLE (hip flexion 3+/5, knee flexion 4/5, knee extension 4/5, dorsiflexion 4/5) Sensory Hearing: Impaired Sensation Right Lower Extremit: Intact Sensation Left Lower Extremity: Intact Transfers Roll Left to Right (QC): 6 Sit to Lying (QC): 3 Lying to Sitting/Side of Bed(Q: 3 Sit to Stand (QC): 3 min assist for supine <-> sit and sit to stand. Gait Does the Patient Walk?: Yes Mode of Locomotion: Walk Anticipated Mode of Locomotion: Walk Walk 10 feet (QC): 4 Distance: 20' Gait Assistive Device: FWW Comments/Gait Description needs steadying assist, states several times that she feels like she is going to fall Assessment/Needs Patient in bed post tx with nurse call, phone, tray, all needs met. O2 after getting back to bed is 96% (2L of O2 nasal canula) Rehab Potential: Fair PT Chcf Goals Chcf Goals PT Chcf Goals Time Frame: Mar 24, 2022 Roll Left & Right (QC): 4 Sit to Lying (QC): 4 Lying-Sitting on Side/Bed(QC): 4 Sit to Stand (QC): 4 Chair/Qpl-zt-Kzgpi Xfer(QC): 4 Walk 10 feet (QC): 4 Walk 50ft with 2 Turns (QC): 4 PT Plan Problem List Problem List: Activity Tolerance, Functional Strength, Safety, Balance, Gait, Transfer, Bed Mobility, ROM Treatment/Plan Treatment Plan: Continue Plan of Care Treatment Plan: Bed Mobility, Education, Functional Activity Gilda, Functional Strength, Gait, Safety, Therapeutic Exercise, Transfers Treatment Duration: Mar 24, 2022 Frequency: 6 times per week Estimated Hrs Per Day: .25 hour per day Patient and/or Family Agrees t: Yes Safety Risks/Education Patient Education: Gait Training, Transfer Techniques, Correct Positioning, Safety Issues Teaching Recipient: Patient Teaching Methods: Demonstration, Discussion Response to Teaching: Reinforcement Needed Discharge Recommendations Plan Patient will perform bed mobility and transfer training, balance and endurance training, functional strengthening, stair training, gait training, and education, to improve functional mobility and independence at home. Therapy Discharge Recommendati: Scheduled Assistance, Home & Family, Post Acute PT Time/GCodes Time In: 911 Time Out: 927 Total Billed Treatment Time: 16 Total Billed Treatment 1 visit SABRINA REYES PT Mar 17, 2022 09:46
--- NOTE | 2022-03-17 12:54 | Occupational Therapy Eval ---
OT Evaluation-General/PLF Medical Diagnosis Admission Date Mar 16, 2022 at 15:45 Medical Diagnosis: NSTEMI, falls, debility Onset Date: Mar 16, 2022 Therapy Diagnosis Therapy Diagnosis: decreased ADL status and weakness Height/Weight Height (Feet): 5 Height (Inches): 9.00 Weight (Pounds): 171 Weight (Ounces): 9.0 Precautions Precautions/Isolations: Fall Prevention, Standard Precautions Referral Physician: Lilliam Portillo DO Referral Reason: Evaluation/Treatment Medical History Pertinent Medical History: Atrial Fib, CAD, Heart Failure, HTN, Hypothroidism Additional Medical History Coronary Stent, Pacemaker, Valve Replacement, Pneumonia, Atrial Fibrillation, Coronary Artery Disease, High Cholesterol, Hypertension, Valvular Heart Disease, Dementia, Traumatic Brain Injury, Arthritis, Chronic Back Pain, Hypothyroidsim Current History Admitted to ER for the second time in two days with chest pain and elevated troponin. 03/14: pt fell the day before when watering muro d/t dizziness. Pt c/o bilateral shoulder pain. 03/16: worsening R shoulder pain and upper body. EMS call d/t vomiting, unable to control the vomiting. Social History Home: Single Level Current Living Status: Significant Other Steps Into Home: 3 ADL-Prior Level of Function SCALE: Activities may be completed with or without assistive devices. 0-Pbcvypnvhi-xuvjtra completes the activity by him/herself with no assistance from a helper. 5-Set-up or Clean-up Assistance-helper sets up or cleans up; patient completes activity. [place] assists only prior to or following the activity. 4-Supervision or Touching Assistance-helper provides verbal cues and/or touching/steadying and/or contact guard assistance as patient completes activity. Assistance may be provided throughout the activity or intermittently. 3-Partial/Moderate Assistance-helper does LESS THAN HALF the effort. [place] lifts, holds or supports trunk or limbs, but provides less than half the effort. 2-Substantial/Maximal Assistance-helper does MORE THAN HALF the effort. [place] lifts or holds trunk or limbs and provides more than half the effort. 3-Ukhqrzrgz-rkrqed does ALL the effort. Patient does none of the effort to complete the activity. Or, the assistance of 2 or more helpers is required for the patient to complete the activity. If activity was not attempted, code reason: 7-Patient Refused. 9-Not Applicable-not attempted and the patient did not perform the activity before the current illness, exacerbation or injury. 10-Not Attempted due to Environmental Limitations-(lack of equipment, weather restraints, etc.). 88-Not Attempted due to Medical Conditions or Safety Concerns. ADL PLOF Comments Pt reports being IND with ADLs at [facility], and receives assistance with driving and IADLs from her fiance. Pt said she has SPC and FWW, but they are in bad shape. She was unclear on how frequently she uses the AD. Accuracy of information unknown as pt appears somewhat confused. Self Care: Independent Functional Cognition: Independent DME/Equipment: Bath Chair (built into shower), Grab Bars, Shower (walk in ), Toilet/[address] Self: No OT Current Status Subjective Pt laying in bed with nursing staff present upon OT arrival, agreeable to eval/tx. Mental Status/Objective Attachments: IV, Telemetry Current Upper Extremity ROM Limit d/t pain from fall ADL-Treatment Eating (QC): 6 (per nursing report) Toileting Hygiene (QC): 3 (per nursing report pt required some assistance) Other Treatments Pt remained in bed throughout duration of tx. She provided information about PLOF and living situation. Pt was educated on the purpose and benefit of skilled OT services to increase IND in ADLs, pt verbalized understanding. She reports having decreased AROM in BUE, especially RUE, d/t pain and discomfort from fall. Pt declined all offered ADLs and UE exercises at this time. due to pt's refusal with ADLs, the above QC scores are per nursing report. OT educated pt on OT POC, including increasing safety and independence with ADLs, she verbalizes understanding. Post tx, pt in bed, call light in reach and all needs met. Education OT Patient Education: Correct positioning, Energy conservation, Exercise program, Modified ADL techniques, Progress toward Goal/Update tx plan, Purpose of tx/functional activities, Rehab process Teaching Recipient: Patient Teaching Methods: Discussion Response to Teaching: Verbalize Understanding OT Shift Supervisor Goals Detention Goals Time Frame: Mar 26, 2022 Oral Hygiene (QC): 4 Toileting Hygiene (QC): 4 Shower/Bathe Self (QC): 3 Upper Body Dressing (QC): 4 Lower Body Dressing (QC): 4 On/Off Footwear (QC): 4 Additional Goals: 1-Demonstrate ADL Tasks, 2-Verbalize Understanding, 3- ImproveStrength/Gilda 1=Demonstrate adherence to instructed precautions during ADL tasks. 2=Patient will verbalize/demonstrate understanding of assistive devices/modifi cations for ADL. 3=Patient will improve strength/tolerance for activity to enable patient to perform ADL's. OT Education/Plan Problem List/Assessment Assessment: Decreased Activ Tolerance, Decreased UE Strength, Impaired Coordination, Impaired I ADL's, Impaired Self-Care Skills, Restricted Funct UE ROM Discharge Recommendations Plan/Recommendations: Continue POC Treatment Plan/Plan of Care Patient would benefit from OT for education, treatment and training to promote independence in ADL's, mobility, safety and/or upper extremity function for ADL's. Plan of Care: ADL Retraining, Functional Mobility, UE Funct Exercise/Act Treatment Duration: Mar 26, 2022 Frequency: 3 times per week (3-5 times per week) Rehab Potential: Fair Time/GCodes Start Time: 11:09 Stop Time: 11:26 Total Time Billed (hr/min): 17 Billed Treatment Time 1, DOUG CHANDLER OT Mar 17, 2022 12:54
[2022-03-17] MEDS ORDERED: DIPH1TAB25 PO (15:18)
[2022-03-17] MEDS ORDERED: DILT240C91 PO (15:18)
[2022-03-17] MEDS ORDERED: CALC-140 PO (15:18)
[2022-03-17] MEDS ORDERED: AMIO200T65 PO (15:18)
[2022-03-17] MEDS ORDERED: GABA-486 PO (15:18)
[2022-03-17] MEDS ORDERED: MTP100TCR PO (15:18)
[2022-03-17] MEDS ORDERED: DIGO125T3 PO (15:18)
[2022-03-17] MEDS ORDERED: FURO40TA4 PO (15:18)
[2022-03-17] MEDS: RIVAROXABAN 20 MG TABLET (XARELTO) PO SCH (16:56)
[2022-03-17] MEDS ORDERED: DIPHENOXYLATE/ATROPINE 2.5MG/0.025MG (LOMOTIL) TAB PO PRN (22:00)
[2022-03-18 03:58] VITALS: BP 190/83
[2022-03-18] MEDS ORDERED: cloNIDine 0.1 MG (CATAPRES) TAB ONE (04:15)
[2022-03-18] MEDS ORDERED: cloNIDine 0.1 MG (CATAPRES) TAB PO PRN (04:15)
[2022-03-18] MEDS ORDERED: cloNIDine 0.1 MG (CATAPRES) TAB PO ONE (04:15)
[2022-03-18 06:58] LABS: BASOPHILS # (AUTO) 0.1 10^3/uL (0.0-0.1); BASOPHILS % (AUTO) 1 % (0-10); EOSINOPHILS # (AUTO) 0.2 10^3/uL (0.0-0.3); EOSINOPHILS % (AUTO) 3 % (0-10); HEMATOCRIT 38 % (35-52); HEMOGLOBIN 12.2 g/dL (11.5-16.0); LYMPHOCYTES # (AUTO) 1.4 10^3/uL (1.0-4.0); LYMPHOCYTES % (AUTO) 19 % (12-44); MEAN CORPUSCULAR HEMOGLOBIN 30 pg (25-34); MEAN CORPUSCULAR HGB CONC 32 g/dL (32-36); MEAN CORPUSCULAR VOLUME 93 fL (80-99); MEAN PLATELET VOLUME 9.8 fL (9.0-12.2); MONOCYTES # (AUTO) 0.8 10^3/uL (0.0-1.0); MONOCYTES % (AUTO) 10 % (0-12); NEUTROPHILS % (AUTO) 67 % (42-75); PLATELET COUNT 255 10^3/uL (130-400); WHITE BLOOD COUNT 7.5 10^3/uL (4.3-11.0)
[2022-03-18 07:26] LABS: ALBUMIN 3.3 GM/DL (3.2-4.5); BILIRUBIN,TOTAL 0.7 MG/DL (0.1-1.0); CALCIUM 8.7 MG/DL (8.5-10.1); CREATININE SERUM 1.12 MG/DL (0.60-1.30); POTASSIUM 4.3 MMOL/L (3.6-5.0)
[2022-03-18 08:24] VITALS: BP 176/85
--- NOTE | 2022-03-18 08:37 | Cardiology Progress Note ---
Subjective Date Seen by Provider: Mar 18, 2022 Time Seen by Provider: 08:20 Subjective/Events-last exam Patient sitting up in chair, continues to c/o bilateral shoulder pain. Denies any chest pain. Objective-Cardiology Exam Last Set of Vital Signs Vital Signs 03/18/22 11:45 Temp 36.8 Pulse 70 Resp 18 B/P (MAP) 152/80 (104) Pulse Ox 95 O2 Delivery Nasal Cannula O2 Flow Rate 2.00 I&O Intake and Output 03/18/22 00:00 Intake Total 460 ml Balance 460 ml Intake Oral 460 ml # Voids 3 General: Alert, Oriented X3, Cooperative, No Acute Distress Lungs: Clear to Auscultation, Normal Air Movement Heart: Other (irr irr) Psych/Mental Status: Mental Status NL, Mood NL Results Lab Laboratory Tests 03/18/22 06:33 A/P-Cardiology Admission Diagnosis Shoulder pain s/p fall Chest pain PAF CAD Assessment/Plan s/p fall at home with bilateral shoulder pain. Chest pain, atypical in presentation with bilateral shoulder pain after fall, mild elevation in troponin, non-ST elevation myocardial infarction, history of coronary artery disease with a stent to the LAD, cardiac catheterization was carried out on September 30, 2021 showing patent stents with mild coronary artery disease nonobstructive disease. Will continue on telemetry and continue to monitor Paroxysmal atrial fibrillation, maintained on Xarelto, Toprol XL 100 mg daily, Cardizem CD 240 mg daily, digoxin 0.125 mg daily and Amiodarone 200mg daily. Continue to monitor at this time, monitor heart rate and blood pressure History of severe aortic valve stenosis, status post TAVR done September 06, 2017 in [place] with uneventful deployment of a 26 mm Medtronic Evolut Pro. Most recent 2D Echo 10/12/18 revealing mechanical prothesis present in aortic valve. Peak gradient across prosthetic valve is 26 mmHg, mean gradient 13mmHg, calculated valve area 2.41 cm squared. Mild AR. there is perivalvular regurg, Mod TR, Repeat 2D echo was done on June 20, 2021 showing moderate to severe LVH with normal systolic function, significant deterioration in the aortic valve with a peak gradient of 91 mmHg, valve area 1.4 cm. Mild mitral valve stenosis, pulmonary hypertension with PA pressure 50 to 55 mmHg Repeat 2D echo done September 2021 showed peak gradient of 23 mmHg, mean gradient of 12 mmHg, which is similar to the finding of August 2020, I feel that the echo finding on June 2021 were erroneously high. Patient has severe left ventricular hypertrophy. Congestive heart failure, acute on chronic left ventricular diastolic dysfunction with severe left ventricular hypertrophy. Hypokalemia, replaced and improved. Continue to monitor. Pulmonary hypertension, no change from baseline. Continue to monitor Mild bilateral carotid stenosis, history of syncope. Last ultrasound was done in July 2018, continue to monitor. Sick sinus syndrome, history of permanent pacemaker. Most recent PPM int erragation done February 2022 in office showing good sensing and capturing Continue to monitor. Hypertension, labile blood pressure, difficult to control. Has been using clonidine as needed. Monitor blood pressure. Hyperlipidemia, monitored as outpatient. Hypothyroidism, monitor TSH Supervisory-Addendum Brief Supervisory Addendum Participated in pt care: history, MDM, physical Personally performed: exam, history, MDM Care discussed with: ANUM Results interpretation: Verified all documentation Notes: Patient was seen and evaluated with Kim, examination performed, management plan was discussed, agree with the current scribed note, I made few changes to the note using Italic font Patient was seen at bedside sitting comfortably, Possible discharge today. Tolerating current medication well, doing better. Reviewed complaint. KIM SAAVEDRA Mar 18, 2022 08:37 EDY GOOD MD Mar 18, 2022 13:10
[2022-03-18] MEDS: CALCIUM CARB + VIT D 600 MG (CALCARB + D) TAB PO SCH (08:49)
[2022-03-18] MEDS: KCL 20 MEQ TAB (K-DUR) PO SCH ×3 (08:49→17:07)
[2022-03-18] MEDS: meTOprolol SUCCINATE 100 MG (TOPROL XL) TAB PO SCH (08:50)
[2022-03-18] MEDS: ASPIRIN E.C. 81 MG (ECOTRIN) TAB PO SCH (08:50)
[2022-03-18] MEDS: GABAPENTIN 100 MG (NEURONTIN) CAP PO SCH (08:50)
[2022-03-18] MEDS: AMIODARONE 200 MG (CORDARONE) TAB PO SCH (08:50)
[2022-03-18] MEDS: FUROSEMIDE 40 MG (LASIX) TAB PO SCH (08:51)
[2022-03-18] MEDS: DIGOXIN 0.125 MG (LANOXIN) TAB PO SCH (08:52)
[2022-03-18] MEDS: LEVOTHYROXINE 75 MCG (LEVOTHROID) TABLET PO SCH (08:52)
[2022-03-18] MEDS: KCL 10 MEQ TAB (MICRO K) PO SCH (08:53)
[2022-03-18] MEDS: DOCUSATE SODIUM 100 MG (COLACE) CAP PO SCH ×2 (08:57→21:16)
[2022-03-18] MEDS: DICLOFENAC 1% GEL 100 GM (VOLTAREN) TUBE TOP SCH ×4 (08:58→21:17)
[2022-03-18] MEDS: SENNOSIDES 8.6 MG (SENOKOT) TAB PO SCH ×2 (08:58→21:17)
--- NOTE | 2022-03-18 11:04 | Occupational Ther Daily Note ---
OT Current Status-Daily Note Subjective Pt asleep upon OT arrival, easily awoken and agreeable to therapy. Pt c/o bilateral shoulder pain at 7/10, and reports being tired since she woke up early this AM. Mental Status/Objective Patient Orientation: Person, Confused ADL-Treatment Therapy Code Descriptions/Definitions Functional [place] Measure: 0=Not Assessed/NA 4=Minimal Assistance 1=Total Assistance 5=Supervision or Setup 2=Maximal Assistance 6=Modified [place] 3=Moderate Assistance 7=Complete IndependenceSCALE: Activities may be completed with or without assistive devices. 6-Hovgspfcvz-ksfcytk completes the activity by him/herself with no assistance from a helper. 5-Set-up or Clean-up Assistance-helper sets up or cleans up; patient completes activity. [place] assists only prior to or following the activity. 4-Supervision or Touching Assistance-helper provides verbal cues and/or touching/steadying and/or contact guard assistance as patient completes activity. Assistance may be provided throughout the activity or intermittently. 3-Partial/Moderate Assistance-helper does LESS THAN HALF the effort. [place] lifts, holds or supports trunk or limbs, but provides less than half the effort. 2-Substantial/Maximal Assistance-helper does MORE THAN HALF the effort. [place] lifts or holds trunk or limbs and provides more than half the effort. 1-Ergijfejr-dfwpoy does ALL the effort. Patient does none of the effort to complete the activity. Or, the assistance of 2 or more helpers is required for the patient to complete the activity. If activity was not attempted, code reason: 7-Patient Refused. 9-Not Applicable-not attempted and the patient did not perform the activity before the current illness, exacerbation or injury. 10-Not Attempted due to Environmental Limitations-(lack of equipment, weather restraints, etc.). 88-Not Attempted due to Medical Conditions or Safety Concerns. Other Treatment Pt declined all ADLs at this time besides oral care, wanting to brush her teeth after finishing breakfast. Pt required frequent verbal and tactile cues for sequencing and staying on task throughout session. She required Min A to transfer supine<>EOB. Once sitting EOB, pt confused about what she was doing, saying she had not eaten breakfast yet. Upon standing up, pt reported feeling dizzy and seeing two of everything. OT provided CGA, holding up 2 fingers in front of pt and asking how many she saw, pt reports 4. Pt began swaying side to side, closing her eyes, pt assisted to EOB, CGA, then SBA to transfer supine. No BP machine close by so BP not taken during stand. Once supine, pt appeared more alert, keeping her eyes open and communicating more with OT, pt reports feeling better. Nurse notified of session and pt's reports. Post tx, pt in bed, call light in reach and all needs met, bed alarm activated. Education OT Patient Education: Correct positioning, Energy conservation, Progress toward Goal/Update tx plan, Purpose of tx/functional activities, Rehab process, Safety issues Teaching Recipient: Patient Teaching Methods: Discussion Response to Teaching: Verbalize Understanding, Reinforcement Needed OT Sheet Metal Helper Goals Sheet Metal Helper Goals Time Frame: Mar 26, 2022 Oral Hygiene (QC): 4 Toileting Hygiene (QC): 4 Shower/Bathe Self (QC): 3 Upper Body Dressing (QC): 4 Lower Body Dressing (QC): 4 On/Off Footwear (QC): 4 Additional Goals: 1-Demonstrate ADL Tasks, 2-Verbalize Understanding, 3- ImproveStrength/Gilda 1=Demonstrate adherence to instructed precautions during ADL tasks. 2=Patient will verbalize/demonstrate understanding of assistive d evices/modifications for ADL. 3=Patient will improve strength/tolerance for activity to enable patient to perform ADL's. OT Education/Plan Problem List/Assessment Assessment: Decreased Activ Tolerance, Decreased UE Strength, Impaired Cognition, Impaired Funct Balance, Impaired I ADL's, Impaired Self-Care Skills, Restricted Funct UE ROM Discharge Recommendations Plan/Recommendations: Continue POC Treatment Plan/Plan of Care Patient would benefit from OT for education, treatment and training to promote independence in ADL's, mobility, safety and/or upper extremity function for ADL's. Plan of Care: ADL Retraining, Functional Mobility, UE Funct Exercise/Act Treatment Duration: Mar 26, 2022 Frequency: 3 times per week (3-5 times per week) Rehab Potential: Fair Time/GCodes Start Time: 13:20 Stop Time: 13:35 Total Time Billed (hr/min): 15 Billed Treatment Time 1, DOUG FARMER OT Mar 18, 2022 11:04
--- NOTE | 2022-03-18 11:19 | Physical Therapy Daily Note ---
PT Daily Note-Current Subjective Patient c/o nausea and dizziness. RN is aware Mental Status Patient Orientation: Person, Time, Situation Attachments: Oxygen Transfers SCALE: Activities may be completed with or without assistive devices. 5-Fidaiwgkxf-loxpzma completes the activity by him/herself with no assistance from a helper. 5-Set-up or Clean-up Assistance-helper sets up or cleans up; patient completes activity. [place] assists only prior to or following the activity. 4-Supervision or Touching Assistance-helper provides verbal cues and/or touching/steadying and/or contact guard assistance as patient completes activity. Assistance may be provided throughout the activity or intermittently. 3-Partial/Moderate Assistance-helper does LESS THAN HALF the effort. [place] lifts, holds or supports trunk or limbs, but provides less than half the effort. 2-Substantial/Maximal Assistance-helper does MORE THAN HALF the effort. [place] lifts or holds trunk or limbs and provides more than half the effort. 3-Ntehisolz-aqegat does ALL the effort. Patient does none of the effort to complete the activity. Or, the assistance of 2 or more helpers is required for the patient to complete the activity. If activity was not attempted, code reason: 7-Patient Refused. 9-Not Applicable-not attempted and the patient did not perform the activity before the current illness, exacerbation or injury. 10-Not Attempted due to Environmental Limitations-(lack of equipment, weather restraints, etc.). 88-Not Attempted due to Medical Conditions or Safety Concerns. Sit to Lying (QC): 6 Lying to Sitting/Side of Bed(Q: 6 Sit to Stand (QC): 4 Treatments orthostatic hypotension testing performed supine 156/76 HR 62 sit 147/80 HR 66 stand 144/78 HR 74 Assessment Patient requested to return to bed with alarm activated. Patient tolerated minimal activity. PT to increase activity as tolerated by patient. PT Janitorial Services Supervisor Goals Janitorial Services Supervisor Goals PT Senior Care Goals Time Frame: Mar 24, 2022 Roll Left & Right (QC): 4 Sit to Lying (QC): 4 Lying-Sitting on Side/Bed(QC): 4 Sit to Stand (QC): 4 Chair/Csb-tl-Gdbfx Xfer(QC): 4 Walk 10 feet (QC): 4 Walk 50ft with 2 Turns (QC): 4 PT Plan Treatment/Plan Treatment Plan: Continue Plan of Care Treatment Plan: Bed Mobility, Education, Functional Activity Gilda, Functional Strength, Gait, Safety, Therapeutic Exercise, Transfers Treatment Duration: Mar 24, 2022 Frequency: 6 times per week Estimated Hrs Per Day: .25 hour per day Patient and/or Family Agrees t: Yes Time/GCodes Time In: 1040 Time Out: 1053 Total Billed Treatment Time: 13 Total Billed Treatment 1 visit FA 13 min TOVA MONTERO PT Mar 18, 2022 11:19
[2022-03-18 11:45] VITALS: BP 152/80
--- NOTE | 2022-03-18 12:34 | Progress Note ---
Subjective Date Seen by a Provider: Mar 18, 2022 Time Seen by a Provider: 11:00 Subjective/Events-last exam Patient doing much better Awaiting placement at [facility] tomorrow No concerns per nurse Review of Systems General: Fatigue, Malaise Objective Exam Last Set of Vital Signs Vital Signs Date Time Temp Pulse Resp B/P (MAP) Pulse Ox O2 Delivery O2 Flow Rate FiO2 03/18/22 11:45 36.8 70 18 152/80 (104) 95 Nasal Cannula 2.00 Capillary Refill : I&O Intake and Output 03/18/22 00:00 Intake Total 460 ml Balance 460 ml Intake Oral 460 ml # Voids 3 General: Alert, Oriented X3, Cooperative, No Acute Distress Heart: Regular Rate, Normal S1, Normal S2, No Murmurs Psych/Mental Status: Mental Status NL, Mood NL Results Lab Laboratory Tests 03/18/22 06:33: White Blood Count 7.5, Red Blood Count 4.08, Hemoglobin 12.2, Hematocrit 38, Mean Corpuscular Volume 93, Mean Corpuscular Hemoglobin 30, Mean Corpuscular Hemoglobin Concent 32, Red Cell Distribution Width 14.8H, Platelet Count 255, Mean Platelet Volume 9.8, Immature Granulocyte % (Auto) 0, Neutrophils (%) (Auto) 67, Lymphocytes (%) (Auto) 19, Monocytes (%) (Auto) 10, Eosinophils (%) (Auto) 3, Basophils (%) (Auto) 1, Neutrophils # (Auto) 5.0, Lymphocytes # (Auto) 1.4, Monocytes # (Auto) 0.8, Eosinophils # (Auto) 0.2, Basophils # (Auto) 0.1, Immature Granulocyte # (Auto) 0.0, Sodium Level 140, Potassium Level 4.3, Chloride Level 100, Carbon Dioxide Level 30, Anion Gap 10, Blood Urea Nitrogen 16, Creatinine 1.12, Estimat Glomerular Filtration Rate 49, BUN/Creatinine Ratio 14, Glucose Level 97, Calcium Level 8.7, Corrected Calcium 9.3, Total Bilirubin 0.7, Aspartate Amino Transf (AST/SGOT) 24, Alanine Aminotransferase (ALT/SGPT) 15, Alkaline Phosphatase 108, Total Protein 6.0L, Albumin 3.3 Assessment/Plan Assessment/Plan Assess & Plan/Chief Complaint Assessment: Chest pain with elevated troponin consistent with NSTEMI Chronic debility with recent falls Chronic shortness of breath with chest pain requiring inpatient stay prior to rehab admit Previous acute respiratory distress on 06/20/2021 requiring ICU transfer out of rehab at that time History of PNA on CXR 06/20/2021 and PCT elevated but negative the day before with CXR and PCT normal Elevated BNP acute on chronic CHF Pacemaker Previous TVAR for aortic stenosis managed by cardiology AF with RVR 10/07/2021 requiring multiple medication changes but did not require cardioversion and currently stable OAC maintained Dementia SLUMS Advanced age s/p right knee replacement June 2021 h/o SIVA s/p critical illness 09/2020 requiring right ureter stent for obstruction of uncertain etiology Valvular heart disease History of HTN with severe OOC Hypothyroidism Presbycusis 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 Dixon appreciated Social work consult Supportive care [facility] at [place] Diagnosis/Problems Diagnosis/Problems (1) NSTEMI (non-ST elevated myocardial infarction) (2) Musculoskeletal pain Status: Acute (3) History of coronary artery disease Status: Acute (4) Elevated troponin Status: Acute (5) Shoulder pain, acute Status: Acute Qualifiers: Qualified Codes: M25.511 - Pain in right shoulder (6) Hypokalemia Status: Acute (7) Chest pain Status: Resolved Resolution Date/Time: 10/01/21 @ 17:11 (8) Atrial fibrillation Status: Chronic (9) Congestive heart failure Status: Acute (10) Debility Status: Acute DAYA VILLEGAS DO Mar 18, 2022 12:34
[2022-03-18 15:29] VITALS: BP 152/74
[2022-03-18] MEDS: RIVAROXABAN 20 MG TABLET (XARELTO) PO SCH (17:07)
[2022-03-18 19:32] VITALS: BP 159/77
[2022-03-18 23:57] VITALS: BP 161/79
[2022-03-19 04:08] VITALS: BP 159/75
[2022-03-19 05:51] LABS: BASOPHILS # (AUTO) 0.1 10^3/uL (0.0-0.1); BASOPHILS % (AUTO) 1 % (0-10); EOSINOPHILS # (AUTO) 0.2 10^3/uL (0.0-0.3); EOSINOPHILS % (AUTO) 2 % (0-10); HEMATOCRIT 41 % (35-52); HEMOGLOBIN 13.2 g/dL (11.5-16.0); LYMPHOCYTES # (AUTO) 1.1 10^3/uL (1.0-4.0); LYMPHOCYTES % (AUTO) 11 % (12-44); MEAN CORPUSCULAR HEMOGLOBIN 30 pg (25-34); MEAN CORPUSCULAR HGB CONC 32 g/dL (32-36); MEAN CORPUSCULAR VOLUME 94 fL (80-99); MEAN PLATELET VOLUME 9.7 fL (9.0-12.2); MONOCYTES # (AUTO) 0.8 10^3/uL (0.0-1.0); MONOCYTES % (AUTO) 8 % (0-12); NEUTROPHILS # (AUTO) 7.9 10^3/uL (1.8-7.8); NEUTROPHILS % (AUTO) 78 % (42-75); PLATELET COUNT 297 10^3/uL (130-400); WHITE BLOOD COUNT 10.1 10^3/uL (4.3-11.0)
[2022-03-19 06:18] LABS: ALBUMIN 3.5 GM/DL (3.2-4.5); BILIRUBIN,TOTAL 0.8 MG/DL (0.1-1.0); CALCIUM 9.3 MG/DL (8.5-10.1); CREATININE SERUM 1.07 MG/DL (0.60-1.30); POTASSIUM 4.4 MMOL/L (3.6-5.0); TOTAL PROTEIN 6.5 GM/DL (6.4-8.2)
[2022-03-19] MEDS: LEVOTHYROXINE 75 MCG (LEVOTHROID) TABLET PO SCH (06:54)
[2022-03-19 08:00] VITALS: BP 157/84
[2022-03-19 08:20] VITALS: BP 159/75
[2022-03-19] MEDS: KCL 20 MEQ TAB (K-DUR) PO SCH (08:51)
[2022-03-19] MEDS: GABAPENTIN 100 MG (NEURONTIN) CAP PO SCH (08:51)
[2022-03-19] MEDS: ASPIRIN E.C. 81 MG (ECOTRIN) TAB PO SCH (08:51)
[2022-03-19] MEDS: DIGOXIN 0.125 MG (LANOXIN) TAB PO SCH (08:51)
[2022-03-19] MEDS: DOCUSATE SODIUM 100 MG (COLACE) CAP PO SCH ×2 (08:51→09:05)
[2022-03-19] MEDS: KCL 10 MEQ TAB (MICRO K) PO SCH (08:52)
[2022-03-19] MEDS: SENNOSIDES 8.6 MG (SENOKOT) TAB PO SCH ×2 (08:52→09:05)
[2022-03-19] MEDS: AMIODARONE 200 MG (CORDARONE) TAB PO SCH (08:52)
[2022-03-19] MEDS: CALCIUM CARB + VIT D 600 MG (CALCARB + D) TAB PO SCH (08:52)
[2022-03-19] MEDS: meTOprolol SUCCINATE 100 MG (TOPROL XL) TAB PO SCH (08:52)
[2022-03-19] MEDS: FUROSEMIDE 40 MG (LASIX) TAB PO SCH (08:52)
[2022-03-19] MEDS: DICLOFENAC 1% GEL 100 GM (VOLTAREN) TUBE TOP SCH (08:56)
--- NOTE | 2022-03-19 10:47 | Cardiology Progress Note ---
Subjective Date Seen by Provider: Mar 19, 2022 Time Seen by Provider: 10:46 Subjective/Events-last exam Patient was seen at bedside, sitting comfortably Still having generalized weakness. Review of Systems General: No Chills, No Night Sweats; Fatigue, Malaise; No Appetite, No Other HEENT: No Head Aches, No Visual Changes, No Eye Pain, No Ear Pain, No Dysphasia, No Sinus Congestion, No Post Nasal Drip, No Sore Throat, No Other Pulmonary: Dyspnea; No Cough, No Pleuritic Chest Pain, No Other Cardiovascular: No: Chest Pain, Palpitations, Orthopnea, Paroxysmal Noc. Dyspnea, Edema, Lt Headedness, Other Objective-Cardiology Exam Last Set of Vital Signs Vital Signs 03/19/22 03/19/22 08:00 08:20 Temp 36.5 Pulse 60 Resp 16 B/P (MAP) 157/84 (108) Pulse Ox 95 O2 Delivery Nasal Cannula O2 Flow Rate 2.00 I&O Intake and Output 03/19/22 00:00 Intake Total 1220 ml Balance 1220 ml Intake Oral 1220 ml # Voids 8 # Bowel Movements 2 General: Alert, Oriented X3, Cooperative, No Acute Distress Lungs: Clear to Auscultation, Normal Air Movement Heart: Regular Rate, Normal S1, Normal S2, No Murmurs Extremities: No Clubbing Skin: No Rashes Neuro: Normal Speech Psych/Mental Status: Mental Status NL, Mood NL Results Lab Laboratory Tests 03/19/22 05:44 A/P-Cardiology Admission Diagnosis Shoulder pain s/p fall Chest pain PAF CAD Assessment/Plan s/p fall at home with bilateral shoulder pain. Possible transfer to retirement Chest pain, atypical in presentation with bilateral shoulder pain after fall, mild elevation in troponin, non-ST elevation myocardial infarction, history of coronary artery disease with a stent to the LAD, cardiac catheterization was carried out on September 30, 2021 showing patent stents with mild coronary artery disease nonobstructive disease. Paroxysmal atrial fibrillation, maintained on Xarelto, Toprol XL 100 mg daily, Cardizem CD 240 mg daily, digoxin 0.125 mg daily and Amiodarone 200mg daily. Continue to monitor at this time, monitor heart rate and blood pressure History of severe aortic valve stenosis, status post TAVR done September 06, 2017 in [place] with uneventful deployment of a 26 mm Medtronic Evolut Pro. Most recent 2D Echo 10/12/18 revealing mechanical prothesis present in aortic valve. Peak gradient across prosthetic valve is 26 mmHg, mean gradient 13mmHg, calcul ated valve area 2.41 cm squared. Mild AR. there is perivalvular regurg, Mod TR, Repeat 2D echo was done on June 20, 2021 showing moderate to severe LVH with normal systolic function, significant deterioration in the aortic valve with a peak gradient of 91 mmHg, valve area 1.4 cm. Mild mitral valve stenosis, pulmonary hypertension with PA pressure 50 to 55 mmHg Repeat 2D echo done September 2021 showed peak gradient of 23 mmHg, mean gradient of 12 mmHg, which is similar to the finding of August 2020, I feel that the echo finding on June 2021 were erroneously high. Patient has severe left ventricular hypertrophy. Congestive heart failure, acute on chronic left ventricular diastolic dysfunction with severe left ventricular hypertrophy. Hypokalemia, replaced and improved. Continue to monitor. Pulmonary hypertension, no change from baseline. Continue to monitor Mild bilateral carotid stenosis, history of syncope. Last ultrasound was done in July 2018, continue to monitor. Sick sinus syndrome, history of permanent pacemaker. Most recent PPM interragat ion done February 2022 in office showing good sensing and capturing Continue to monitor. Hypertension, labile blood pressure, difficult to control. Has been using clonidine as needed. Monitor blood pressure. Hyperlipidemia, monitored as outpatient. Hypothyroidism, monitor TSH EDY GOOD MD Mar 19, 2022 10:47
[2022-03-19] MEDS ORDERED: RIVA20TA PO (11:44)
[2022-03-19] MEDS ORDERED: OXC5T PO (11:44)
[2022-03-19] MEDS ORDERED: MTP100TCR PO (11:44)
[2022-03-19] MEDS ORDERED: DIGO125T3 PO (11:44)
[2022-03-19] MEDS ORDERED: DILT240C91 PO (11:44)
[2022-03-19] MEDS ORDERED: ASPI-1238 PO (11:44)
[2022-03-19] MEDS ORDERED: LEVO75TA6 PO (11:44)
[2022-03-19] MEDS ORDERED: NITR0.4T42 SL (11:44)
[2022-03-19] MEDS ORDERED: GABA-486 PO (11:44)
[2022-03-19] MEDS ORDERED: CALC-140 PO (11:44)
[2022-03-19] MEDS ORDERED: AMIO200T65 PO (11:44)
[2022-03-19] MEDS ORDERED: FURO40TA4 PO (11:44)
[2022-03-19] MEDS ORDERED: POTA10TA PO (11:44)
[2022-03-19] MEDS ORDERED: DICL100G13 TOP (11:44)
[2022-03-19] MEDS ORDERED: DIPH1TAB25 PO (11:44)
--- NOTE | 2022-03-19 11:47 | Discharge Inst-Skilled Nursing ---
Discharge Inst-Skilled NF Reconcile Patient Problems Problems Reviewed?: Yes Chief Complaint Chief complaint: Weakness with recent fall with chest pain and elevated troponin History of present illness: This is an 81-year-old female clinic patient of mine with multiple comorbidities of which most severe is cardiac who Dr. Dixon manages who presented to the ER for the second time 2 days with chest pain found to have elevated troponin. She has had a major decline in the last 6 months but unwilling to have any plan for retirement placement. She lives with her significant other. She had bruised her knees and hit her shoulder when she fell last time. I did have dialysis social worker visit with her of which she has visited before when her significant other Demetrius was admitted a few weeks ago. Patient Instructions Patient Problems: Debility Falls Goal: Improved ADL's Consult/Follow Up/Orders Follow Up Appt.: Dr Portillo/Yanet [place] on [place] rounds Skilled NF Admit to: [facility] Certification ([facility]) I certify that SNF services are required to be given on an inpatient basis because of the above named patient's need for senior care care on a continuing basis for the conditions(s) for which he/she was receiving inpatient hospital services prior to his/her transfer to the SNF. Longterm Facility Order: Nursing Services, Certified Orthotist-Evaluate & Treat, Physical Therapy-Evaluate & Treat Oxygen Delivery Method: Nasal Cannula Discharge Diet: No Restrictions Resuscitation Status: Do Not Resuscitate New & Resume Previous Orders New Medications: Aspirin (Aspirin EC) 81 Mg Tablet. 81 MG PO DAILY, #30 TAB Diclofenac Sodium (Diclofenac Sodium) 1 % Gel..gram. 0 GM TOP QID, #30 TUBE BID Nitroglycerin (Nitroglycerin) 0.4 Mg Tab.subl 0 MG SL UD PRN for CHEST PAIN (ANGINA), #10 TAB Q5 minutes prn CP Oxycodone Hcl (Oxyir Tablet) 5 Mg Tab 5 MG PO Q4HR PRN for PAIN-SEE DOSE INSTRUCTIONS, #20 TAB Continued Medications: Amiodarone HCl (Amiodarone HCl) 200 Mg Tablet 400 MG PO DAILY, #30 TAB (This prescription has been renewed) TAKES 2 (200MG) TABS Calcium Carbonate/Vitamin D3 (Calcium + Vitamin D Tablet) 600 Mg Calcium-5 Mcg (200 Unit) Tablet 1 EACH PO DAILY, #30 TAB (This prescription has been renewed) Digoxin (Digoxin) 125 Mcg (0.125 Mg) Tablet 125 MCG PO DAILY, #30 TAB (This prescription has been renewed) Diltiazem HCl (Diltiazem 24Hr ER) 240 Mg Cap.er.24h 240 MG PO DAILY, #30 CAP (This prescription has been renewed) Diphenoxylate HCl/Atropine (Diphenoxylate-Atrop 2.5-0.025) 2.5 Mg-0.025 Mg Tablet 1 EA PO BID PRN for DIARRHEA, #30 TAB (This prescription has been renewed) Furosemide (Furosemide) 40 Mg Tablet 40 MG PO DAILY, #30 TAB (This prescription has been renewed) Gabapentin (Gabapentin) 100 Mg Capsule 200 MG PO DAILY, #60 CAP (This prescription has been renewed) TAKES 2 (100MG) CAPS Levothyroxine Sodium (Levothyroxine Sodium) 75 Mcg Tablet 75 MCG PO DAILY, #30 TAB (This prescription has been renewed) Metoprolol Succinate (Metoprolol Succinate) 100 Mg Tab.er.24h 100 MG PO DAILY, #30 TAB (This prescription has been renewed) Potassium Chloride (K-Tab ER) 10 Meq Tablet.er 20 MEQ PO DAILY, #30 TAB (This prescription has been renewed) TAKE 2 (10MEQ) TABS Rivaroxaban (Xarelto) 20 Mg Tablet 20 MG PO DAILY, #30 TAB (This prescription has been renewed) Lilliam Portillo Mar 19, 2022 11:45 LILLIAM PORTILLO DO Mar 19, 2022 11:47
[2022-03-19 12:40] VITALS: BP 143/79
[2022-03-19 13:50] VITALS: BP 143/79
== END 2022-03-19 13:50 | DRG 280 ==
LOC: EDUNIT# 13:16 → ER 13:17 → CSD 15:45 → 4TH 03-17 16:14
PROVIDERS: ADMIT Internal Medicine; ATTEND Internal Medicine
DX: I21.4 Non-ST elevation (NSTEMI) myocardial infarction (principal); I50.33 Acute on chronic diastolic (congestive) heart failure; I38 Endocarditis, valve unspecified; I25.10 Atherosclerotic heart disease of native coronary artery without angina pectoris; E78.00 Pure hypercholesterolemia, unspecified; F03.90 Unspecified dementia, unspecified severity, without behavioral disturbance, psychotic disturbance, mood disturbance, and anxiety; Z87.820 Personal history of traumatic brain injury; M19.90 Unspecified osteoarthritis, unspecified site; G89.29 Other chronic pain; M54.9 Dorsalgia, unspecified; E03.9 Hypothyroidism, unspecified; M25.211 Flail joint, right shoulder; Z96.651 Presence of right artificial knee joint; H91.10 Presbycusis, unspecified ear; W18.30XA Fall on same level, unspecified, initial encounter; E87.6 Hypokalemia; R53.81 Other malaise; K52.9 Noninfective gastroenteritis and colitis, unspecified; I11.0 Hypertensive heart disease with heart failure; I48.0 Paroxysmal atrial fibrillation; I27.20 Pulmonary hypertension, unspecified; I65.23 Occlusion and stenosis of bilateral carotid arteries; I49.5 Sick sinus syndrome; E78.5 Hyperlipidemia, unspecified; Z79.01 Long term (current) use of anticoagulants; Z79.899 Other long term (current) drug therapy; Z95.0 Presence of cardiac pacemaker; Z95.5 Presence of coronary angioplasty implant and graft; Z95.2 Presence of prosthetic heart valve
CPT/HCPCS: 36415; 71045; 73060; 80053; 80061; 83735; 83874; 84484; 85025; 85610; 85730; 93005; 93041

== ENCOUNTER 2022-07-03 23:50 | Emergency (ER) | payer MEDICARE ==
[~2022-07-03] VITALS: Ht 175 cm; Wt 61.0 kg
[~2022-07-03 23:50] MED LIST changes: +CALC-140 PO; +DICL100G13 TOP; +DIGO125T3 PO; +DILT240C91 PO; +DIPH1TAB25 PO; +NITR0.4T42 SL; -NYST15CR TP; +NYST15CR35 TP; +OXC5T PO
[2022-07-04 00:44] LABS: BASOPHILS # (AUTO) 0.1 10^3/uL (0.0-0.1); BASOPHILS % (AUTO) 1 % (0-10); EOSINOPHILS # (AUTO) 0.4 10^3/uL (0.0-0.3); EOSINOPHILS % (AUTO) 4 % (0-10); HEMATOCRIT 39 % (35-52); HEMOGLOBIN 12.5 g/dL (11.5-16.0); LYMPHOCYTES # (AUTO) 2.1 10^3/uL (1.0-4.0); LYMPHOCYTES % (AUTO) 21 % (12-44); MEAN CORPUSCULAR HEMOGLOBIN 31 pg (25-34); MEAN CORPUSCULAR HGB CONC 33 g/dL (32-36); MEAN CORPUSCULAR VOLUME 94 fL (80-99); MEAN PLATELET VOLUME 9.7 fL (9.0-12.2); MONOCYTES % (AUTO) 10 % (0-12); NEUTROPHILS # (AUTO) 6.4 10^3/uL (1.8-7.8); NEUTROPHILS % (AUTO) 64 % (42-75); PLATELET COUNT 269 10^3/uL (130-400)
[2022-07-04 01:01] LABS: INR 1.9 (0.8-1.4); PROTHROMBIN TIME PATIENT 21.8 SEC (12.2-14.7)
[2022-07-04 01:11] LABS: BILIRUBIN,TOTAL 0.6 MG/DL (0.1-1.0); CALCIUM 9.5 MG/DL (8.5-10.1); CREATININE SERUM 1.33 MG/DL (0.60-1.30); POTASSIUM 3.8 MMOL/L (3.6-5.0); TOTAL PROTEIN 7.6 GM/DL (6.4-8.2)
[2022-07-04] MEDS ORDERED: TRANEXAMIC ACID 100 MG/ML 10 ML INJECTION ONE (01:15)
--- NOTE | 2022-07-04 02:35 | ED General ---
General Chief Complaint: Abdominal/GI Problems Stated Complaint: COUGHING UP BLOOD Nursing Triage Note: C/O COUGHING UP BLOOD SINCE 2300 07/03/22 Source of Information: Patient (LIMITED HISTORIAN) History of Present Illness Date Seen by Provider: Jul 04, 2022 Time Seen by Provider: 00:38 Initial Comments PT ARRIVES VIA POV FROM HOME WITH PT STATES SHE WOKE UP AT 2300, AND TASTED BLOOD IN HER MOUTH, AND IT STARTED COMING OUT OF HER MOUTH STATES SHE ISN'T ACTUALLY COUGHING IT UP, SHE IS JUST SPITTING THE BLOOD OUT OF HER MOUTH. NO DIFFICULTY SWALLOWING OR BREATHING. STATES SHE WAS FINE WHEN SHE WENT TO BED. PT WEARS DENTURES. STATES SHE NOTICED A "FLAP OF SKIN" IN HER MOUTH NO KNOWN INJURY TO HER MOUTH PT IS ON XARELTO FOR CHRONIC ATRIAL FIBRILLATION WELL PRIOR VALVE REPLACEMENT, SHE ALSO HAS A PACEMAKER. NO FEVER OR RECENT ILLNESS NO NAUSEA/VOMITING NO BLEEDING FROM OTHER SITES OR EXCESSIVE BRUISING OR PETECHIAE PCP: DR. VILLEGAS Allergies and Home Medications Allergies Coded Allergies: Penicillins (Verified Allergy, Unknown, 06/23/21) pineapple (Verified Allergy, Unknown, 06/23/21) Patient Home Medication List Home Medication List Reviewed: Yes Amiodarone HCl (Amiodarone HCl) 200 Mg Tablet, 400 MG PO DAILY Prescribed by: DAYA VILLEGAS on 03/19/22 1144 Aspirin (Aspirin EC) 81 Mg Tablet.dr, 81 MG PO DAILY Prescribed by: DAYA VILLEGAS on 03/19/22 1144 Calcium Carbonate/Vitamin D3 (Calcium + Vitamin D Tablet) 600 Mg Calcium-5 Mcg (200 Unit) Tablet, 1 EACH PO DAILY Prescribed by: DAYA VILLEGAS on 03/19/22 1144 Diclofenac Sodium (Diclofenac Sodium) 1 % Gel..gram., 0 GM TOP QID Prescribed by: DAYA VILLEGAS on 03/19/22 1144 Digoxin (Digoxin) 125 Mcg (0.125 Mg) Tablet, 125 MCG PO DAILY Prescribed by: DAYA VILLEGAS on 03/19/22 114 Diltiazem HCl (Diltiazem 24Hr ER) 240 Mg Cap.er.24h, 240 MG PO DAILY Prescribed by: DAYA VILLEGAS on 03/19/22 1144 Diphenoxylate HCl/Atropine (Diphenoxylate-Atrop 2.5-0.025) 2.5 Mg-0.025 Mg Tablet, 1 EA PO BID PRN for DIARRHEA Prescribed by: DAYA VILLEGAS on 03/19/22 1145 Furosemide (Furosemide) 40 Mg Tablet, 40 MG PO DAILY Prescribed by: DAYA VILLEGAS on 03/19/22 1144 Gabapentin (Gabapentin) 100 Mg Capsule, 200 MG PO DAILY Prescribed by: DAYA VILLEGAS on 03/19/22 1144 Levothyroxine Sodium (Levothyroxine Sodium) 75 Mcg Tablet, 75 MCG PO DAILY Prescribed by: DAYA VILLEGAS on 03/19/22 1144 Metoprolol Succinate (Metoprolol Succinate) 100 Mg Tab.er.24h, 100 MG PO DAILY Prescribed by: DAYA VILLEGAS on 03/19/22 1144 Nitroglycerin (Nitroglycerin) 0.4 Mg Tab.subl, 0 MG SL UD PRN for CHEST PAIN (ANGINA) Prescribed by: DAYA VILLEGAS on 03/19/22 1144 Oxycodone Hcl (Oxyir Tablet) 5 Mg Tab, 5 MG PO Q4HR PRN for PAIN-SEE DOSE INSTRUCTIONS Prescribed by: DAYA VILLEGAS on 03/19/22 1145 Potassium Chloride (K-Tab ER) 10 Meq Tablet.er, 20 MEQ PO DAILY Prescribed by: DAYA VILLEGAS on 03/19/22 1144 Rivaroxaban (Xarelto) 20 Mg Tablet, 20 MG PO DAILY Prescribed by: DAYA VILLEGAS on 03/19/22 1144 Review of Systems Review of Systems Constitutional: no symptoms reported EENTM: see HPI Respiratory: no symptoms reported Cardiovascular: no symptoms reported Gastrointestinal: no symptoms reported Musculoskeletal: no symptoms reported Skin: no symptoms reported Psychiatric/Neurological: No Symptoms Reported Hematologic/Lymphatic: See HPI Immunological/Allergic: no symptoms reported Past Hyupugq-Staimq-Ejgabi Hx Patient Social History Tobacco Use?: No Substance use?: No Alcohol Use?: No Pt feels they are or have been: No Immunizations Up To Date Tetanus Booster (TDap): Unknown PED Vaccines UTD: No First/Initial COVID19 Vaccinat: october 2020 Second COVID19 Vaccination Darryl: november 2020 Third COVID19 Vaccination Date: MAY 2021 Seasonal Allergies Seasonal Allergies: Yes Past Medical History Surgery/Hospitalization HX: RTKR, , ANKLE 2000, INGUINAL HERNIA REPAIR, INTROCCULAR IMPLANTS, PACEMAKER, STENTS , VALVE REPLACMENT, PPM, HYSTERECTOMY AFIB, CAD, HTN, HIGH CHOLESTEROL, DEMENTIA, TBI, ARTHRITIS, HYPOTHRYOIDISM, ERIC Surgeries: Yes (RIGHT INGUINAL HERNIA REPAIR, 1979 RIGHT KNEE SURGERY, ANKLE 1999) Coronary Stent, Hysterectomy, Pacemaker, Valve Replacement Respiratory: Yes Tuberculosis Currently Using CPAP: No Currently Using BIPAP: No Cardiac: Yes (PACEMAKER, VALVE REPLACED) Atrial Fibrillation, Coronary Artery Disease, High Cholesterol, Hypertension, Irregular Heartbeat, Valvular Heart Disease Neurological: Yes Dementia, Traumatic Brain Injury Reproductive Disorders: No Female Reproductive Disorders: Denies MEDICAL RESIDENT History: Hysterectomy Sexually Transmitted Disease: No HIV/AIDS: No Genitourinary: No Gastrointestinal: No Musculoskeletal: Yes (right knee osteoarthritis) Arthritis, Chronic Back Pain Endocrine: Yes Hypothyroidsim HEENT: Yes Cataract Hearing Impairment: Hard of Hearing, Hearing Aide Right, Hearing Aide Left Cancer: No Psychosocial: No (HX OF DEPRESSION YEARS AGO) Integumentary: No Blood Disorders: No Adverse Reaction/Blood Tranf: No Family Medical History Patient reports no known family medical history. No Pertinent Family Hx Physical Exam Vital Signs Vital Signs - First Documented 07/04/22 00:27 Temp 36.2 Pulse 66 Resp 16 B/P (MAP) 193/96 (128) Pulse Ox 96 O2 Delivery Room Air Capillary Refill : Less Than 3 Seconds Height, Weight, BMI Height: 5'9.00" Weight: 171lbs. 9.0oz. [id number]; 19.00 BMI Method:Stated General Appearance: No Apparent Distress, WD/WN HEENT: No Pale Conjunctivae (R); Other (PT CONSTANTLY SPITTING OUT BRIGHT RED BLOOD. PT IS EDENTULOUS. REMOVED DENTURES PRIOR TO ARRIVAL. THERE IS A SMALL WOUND/ABRASION/ SUPERFICIAL FLAP OF SKIN WITH CONSTANT BLEEDING--LEFT LOWER GUMS, INNER ASPECT--NEAR AREA OF WHERE PREMOLARS/FIRST MOLAR WOULD BE. APPEARS TO BE ADJACENT TO WHERE THE EDGE OF HER DENTURES WOULD BE. SHE DID NOT BRING HER DENTURES WITH HER TO ER FOR INSPECTION. ) Respiratory: Normal Breath Sounds, No Accessory Muscle Use, No Respiratory Distress Cardiovascular: Regular Rate, Rhythm Gastrointestinal: Non Tender, Soft Extremity: Pedal Edema (1+ BILATERALLY) Neurologic/Psychiatric: Alert, Oriented x3 (POOR MEMORY) Skin: Normal Color, Warm/Dry, Other (NO EXCESSIVE BRUISING OR PETECHIAE) Procedures/Interventions Date of ETT Placement: Sep 10, 2020 Time of ETT Placement: 0930 Suture Size: 4-0 Progress MOUTH SWISHED WITH ICE WATER, SITE OF BLEEDING IDENTIFIED TO LEFT LOWER GUM / I NNER ASPECT--LINGULAR ASPECT. SMALL FLAP-TYPE WOUND/ABRASION. PRESSURE APPLIED TO THE AREA WITH PLAIN GAUZE SURGICEL GAUZE AND MEROCEL PACK PLACED OVER THE SITE OF BLEEDING AND THESE WERE SATURATED WITH TXA, AND APPLIED CONSTANT PRESSURE TO THE AREA. BLEEDING COMPLETELY STOPPED. PT OBSERVED IN ER FOR SOME TIME AFTER, AND NO RE-BLEEDING OCCURRED. Progress/Results/Core Measures Suspected Sepsis SIRS Temperature: Pulse: 66 Respiratory Rate: 16 Laboratory Tests 07/04/22 00:36: White Blood Count 10.0 Blood Pressure 193 /96 Mean: 128 Laboratory Tests 07/04/22 00:36: Creatinine 1.33H, INR Comment 1.9H, Platelet Count 269, Total Bilirubin 0.6 Results/Orders Lab Results Laboratory Tests Test 07/04/22 00:36 07/04/22 01:52 Range/Units White Blood Count 10.0 4.3-11.0 10^3/uL Red Blood Count 4.08 3.80-5.11 10^6/uL Hemoglobin 12.5 11.5-16.0 g/dL Hematocrit 39 35-52 % Mean Corpuscular Volume 94 80-99 fL Mean Corpuscular Hemoglobin 31 25-34 pg Mean Corpuscular Hemoglobin Concent 33 32-36 g/dL Red Cell Distribution Width 14.6 H 10.0-14.5 % Platelet Count 269 130-400 10^3/uL Mean Platelet Volume 9.7 9.0-12.2 fL Immature Granulocyte % (Auto) 0 % Neutrophils (%) (Auto) 64 42-75 % Lymphocytes (%) (Auto) 21 12-44 % Monocytes (%) (Auto) 10 0-12 % Eosinophils (%) (Auto) 4 0-10 % Basophils (%) (Auto) 1 0-10 % Neutrophils # (Auto) 6.4 1.8-7.8 10^3/uL Lymphocytes # (Auto) 2.1 1.0-4.0 10^3/uL Monocytes # (Auto) 1.0 0.0-1.0 10^3/uL Eosinophils # (Auto) 0.4 H 0.0-0.3 10^3/uL Basophils # (Auto) 0.1 0.0-0.1 10^3/uL Immature Granulocyte # (Auto) 0.0 0.0-0.1 10^3/uL Prothrombin Time 21.8 H 12.2-14.7 SEC INR Comment 1.9 H 0.8-1.4 Activated Partial Thromboplast Time 38 H 24-35 SEC Sodium Level 142 135-145 MMOL/L Potassium Level 3.8 3.6-5.0 MMOL/L Chloride Level 101 98-107 MMOL/L Carbon Dioxide Level 25 21-32 MMOL/L Anion Gap 16 H 5-14 MMOL/L Blood Urea Nitrogen 25 H 7-18 MG/DL Creatinine 1.33 H 0.60-1.30 MG/DL Estimat Glomerular Filtration Rate 40 BUN/Creatinine Ratio 19 Glucose Level 111 H 70-105 MG/DL Calcium Level 9.5 8.5-10.1 MG/DL Corrected Calcium 9.5 8.5-10.1 MG/DL Total Bilirubin 0.6 0.1-1.0 MG/DL Aspartate Amino Transf (AST/SGOT) 24 5-34 U/L Alanine Aminotransferase (ALT/SGPT) 18 0-55 U/L Alkaline Phosphatase 107 40-136 U/L Total Protein 7.6 6.4-8.2 GM/DL Albumin 4.0 3.2-4.5 GM/DL Digoxin Level 1.62 0.80-2.00 NG/ML My Orders Orders - MIN STEINBERG DO Ed Iv/Invasive Line Start (07/04/22 00:38) O2 (07/04/22 00:38) Monitor-Rhythm Ecg Trace Only (07/04/22 00:38) Cbc With Automated Diff (07/04/22 00:38) Comprehensive Metabolic Panel (07/04/22 00:38) Protime With Inr (07/04/22 00:38) Partial Thromboplastin Time (07/04/22 00:38) Chest 1 View, Ap/Pa Only (07/04/22 00:38) Tranexamic Acid Injection (Cyklokapron I (07/04/22 01:15) Digoxin (07/04/22 01:49) Hydralazine Tablet (Apresoline Tablet) (07/04/22 02:00) Medications Given in ED Current Medications Medications Dose Ordered Sig/Robbin Route Start Time Stop Time Status Last Admin Dose Admin Hydralazine HCl 10 mg ONCE ONCE PO 07/04/22 02:00 07/04/22 02:01 DC 07/04/22 02:00 10 MG Tranexamic Acid ONCE ONCE NA 07/04/22 01:15 07/04/22 01:16 DC 07/04/22 01:17 1,000 MG Vital Signs/I&O 07/04/22 07/04/22 00:27 02:38 Temp 36.2 36.6 Pulse 66 65 Resp 16 16 B/P (MAP) 193/96 (128) 167/89 Pulse Ox 96 97 O2 Delivery Room Air Room Air Capillary Refill : Less Than 3 Seconds Blood Pressure Mean: 128 Progress Note : Progress Note PT REMAINED ELEVATED, THEREFORE HYDRALAZINE WAS GIVEN. BP COMING DOWN AT TIME OF DISMISSAL. ANTICIPATED COURSE, NEED FOR FOLLOW UP AND RETURN PRECAUTIONS DISCUSSED WITH PT AND . THEY FEEL COMFORTABLE GOING HOME. Departure Impression Primary Impression: BLEEDING FROM GUM DUE TO ABRASION Additional Impressions: ANTICOAGULATION THERAPY HTN (hypertension) Disposition: HOME, SELF-CARE Condition: Improved Departure-Patient Inst. Decision time for Depature: 02:32 Referrals: DAYA VILLEGAS DO (PCP/Family) Primary Care Physician Patient Instructions: Bleeding Gums (DC), High Blood Pressure ED Add. Discharge Instructions: CONTINUE YOUR MEDICATIONS PRESCRIBED AVOID ANY FRICTION TO THE AREA ON THE GUMS THAT HAS BEEN BLEEDING. AVOID USING YOUR DENTURES FOR THE NEXT FEW DAYS, AND AVOID RUBBING THE AREA WITH YOUR TONGUE AVOID ANY FOODS THAT REQUIRE CHEWING--LIQUIDS AND PUREE'D FOOD ONLY, UNTIL THE AREA IS HEALED. FOLLOW UP WITH YOUR DR ON TUESDAY IF SYMPTOMS PERSIST, RETURN TO ER IF SYMPTOMS WORSEN All discharge instructions reviewed with patient and/or family. Voiced understanding. MIN STEINBERG DO Jul 04, 2022 02:35
[2022-07-04 02:38] VITALS: BP 167/89
--- NOTE | 2022-07-04 07:45 | Diagnostic Imaging Report ---
EXAMINATION: Chest 1 view HISTORY: HEMOPTYSIS COMPARISON: 03/16/2022 FINDINGS: Stable enlargement of the cardiac silhouette with surgical changes from valve repair and cardiac device placement. The lungs are clear without consolidation, pleural effusion, or pneumothorax. The osseous structures are intact. IMPRESSION: 1. No acute radiographic abnormality in the chest. Dictated by: Dictated on workstation # [id number]
== END 2022-07-04 02:43 | disposition home or self-care (01) ==
LOC: EDUNIT# 23:50 → ER 23:50
DX: S00.512A Abrasion of oral cavity, initial encounter (principal); I10 Essential (primary) hypertension; I48.20 Chronic atrial fibrillation, unspecified; Z95.0 Presence of cardiac pacemaker; Z95.5 Presence of coronary angioplasty implant and graft; Z79.01 Long term (current) use of anticoagulants; X58.XXXA Exposure to other specified factors, initial encounter
CPT/HCPCS: 36415; 71045; 80053; 80162; 85025; 85610; 85730; 93041

== ENCOUNTER 2022-09-07 15:04 | Observation (INO) | payer MEDICARE ==
[~2022-09-07] VITALS: Ht 175 cm; Wt 57.5 kg
[~2022-09-07 15:04] MED LIST changes: +POTA10CA44 PO
--- NOTE | 2022-09-07 15:20 | ED Chest Pain ---
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 This has improved. EMS reports that on their arrival, they did give 325 aspirin but did not give nitro as her chest pain had resolved. Patient has not had any significant chest pain since their arrival at the house and during transport. EMS reports that she does have a pacemaker. Was able to provide medication list from the home. Patient reports that she is taking her medications as directed. She follows with Dr. Villegas and Dr. Dixon. States that she has been feeling a little tired over the last week but has not been ill otherwise. She lives at home. Timing/Duration: 1/2 hour, gone now Severity/Quality: mild, moderate, pressure Location: central Radiation: no radiation Prior CP/Workup: cardiac cath ASA po INSPECTOR PURCHASED PARTS: Yes NTG SL INSPECTOR PURCHASED PARTS: No Allergies and Home Medications Allergies Coded Allergies: Penicillins (Verified Allergy, Unknown, 06/23/21) pineapple (Verified Allergy, Unknown, 06/23/21) Patient Home Medication List Home Medication List Reviewed: Yes Amiodarone HCl (Amiodarone HCl) 200 Mg Tablet, 200 MG PO BID, (Reported) Entered as Reported by: KATRINA CRUZ on 09/08/22 1131 Last Action: Reviewed Atorvastatin Calcium (Atorvastatin Calcium) 20 Mg Tablet, 20 MG PO HS, (Reported) Entered as Reported by: KATRINA CRUZ on 09/08/22 1131 Last Action: Reviewed Digoxin (Digoxin) 125 Mcg (0.125 Mg) Tablet, 125 MCG PO DAILY Prescribed by: DAYA VILLEGAS on 03/19/22 1144 Last Action: Reviewed Diltiazem HCl (Diltiazem 24Hr ER) 240 Mg Cap.er.24h, 240 MG PO DAILY Prescribed by: DAYA VILLEGAS on 03/19/22 1144 Last Action: Reviewed Furosemide (Furosemide) 40 Mg Tablet, 40 MG PO DAILY Prescribed by: DAYA VILLEGAS on 03/19/221143 Last Action: Reviewed Gabapentin (Gabapentin) 100 Mg Capsule, 100 MG PO BID Prescribed by: DAYA VILLEGAS on 09/07/221841 Last Action: Reviewed Levothyroxine Sodium (Levothyroxine Sodium) 75 Mcg Tablet, 75 MCG PO DAILY Prescribed by: DAYA VILLEGAS on 03/19/221143 Last Action: Reviewed Metoprolol Succinate (Metoprolol Succinate) 100 Mg Tab.er.24h, 100 MG PO DAILY Prescribed by: DAYA VILLEGAS on 03/19/221143 Last Action: Reviewed Potassium Chloride (K-Tab ER) 10 Meq Tablet.er, 20 MEQ PO DAILY Prescribed by: DAYA VILLEGAS on 03/19/221143 Last Action: Reviewed Rivaroxaban (Xarelto) 20 Mg Tablet, 20 MG PO DAILY Prescribed by: DAYA VILLEGAS on 03/19/221143 Last Action: Reviewed Discontinued Medications Amiodarone HCl (Amiodarone HCl) 200 Mg Tablet, 200 MG PO BID Discontinued Reason: Duplicate Order Prescribed by: DAYA VILLEGAS on 09/07/221841 Last Action: Discontinued Aspirin (Aspirin EC) 81 Mg Tablet.dr, 81 MG PO DAILY Discontinued Reason: No Longer Taking Prescribed by: DAYA VILLEGAS on 03/19/221143 Last Action: Discontinued Calcium Carbonate/Vitamin D3 (Calcium + Vitamin D Tablet) 600 Mg Calcium-5 Mcg (200 Unit) Tablet, 1 EACH PO DAILY Discontinued Reason: No Longer Taking Prescribed by: DAYA VILLEGAS on 03/19/221143 Last Action: Discontinued Diclofenac Sodium (Diclofenac Sodium) 1 % Gel..gram., 0 GM TOP QID Discontinued Reason: No Longer Taking Prescribed by: DAYA VILLEGAS on 03/19/221143 Last Action: Discontinued Diphenoxylate HCl/Atropine (Diphenoxylate-Atrop 2.5-0.025) 2.5 Mg-0.025 Mg Tablet, 1 EA PO BID PRN for DIARRHEA Discontinued Reason: No Longer Taking Prescribed by: DAYA VILLEGAS on 03/19/221144 Last Action: Discontinued Nitroglycerin (Nitroglycerin) 0.4 Mg Tab.subl, 0 MG SL UD PRN for CHEST PAIN (ANGINA) Discontinued Reason: No Longer Taking Prescribed by: DAYA VILLEGAS on 8/12/22 1144 Last Action: Discontinued Oxycodone Hcl (Oxyir Tablet) 5 Mg Tab, 5 MG PO Q4HR PRN for PAIN-SEE DOSE INSTRUCTIONS Discontinued Reason: No Longer Taking Prescribed by: DAYA VILLEGAS on 03/19/22 1145 Last Action: Discontinued Review of Systems Review of Systems Constitutional: see HPI; No chills, No fever EENTM: No Symptoms Reported Respiratory: Denies Cough, Denies Shortness of Air Cardiovascular: See HPI Gastrointestinal: Denies Nausea, Denies Vomiting Musculoskeletal: no symptoms reported Psychiatric/Neurological: No Symptoms Reported Past Xvwodot-Orgdlk-Xpxwtq Hx Patient Social History Tobacco Use?: No Substance use?: No Alcohol Use?: No Immunizations Up To Date Tetanus Booster (TDap): Unknown PED Vaccines UTD: No First/Initial COVID19 Vaccinat: october 2020 Second COVID19 Vaccination Darryl: november 2020 Third COVID19 Vaccination Date: MAY 2021 Seasonal Allergies Seasonal Allergies: Yes Past Medical History Surgery/Hospitalization HX: RTKR, , ANKLE 1999, INGUINAL HERNIA REPAIR, INTROCCULAR IMPLANTS, PACEMAKER, STENTS , VALVE REPLACMENT, PPM, HYSTERECTOMY AFIB, CAD, HTN, HIGH CHOLESTEROL, DEMENTIA, TBI, ARTHRITIS, HYPOTHRYOIDISM, ERIC Surgeries: Yes (RIGHT INGUINAL HERNIA REPAIR, 1978 RIGHT KNEE SURGERY, ANKLE 1999) Coronary Stent, Hysterectomy, Pacemaker, Valve Replacement Respiratory: Yes Tuberculosis Currently Using CPAP: No Currently Using BIPAP: No Cardiac: Yes (PACEMAKER, VALVE REPLACED) Atrial Fibrillation, Coronary Artery Disease, High Cholesterol, Hypertension, Irregular Heartbeat, Valvular Heart Disease Neurological: Yes Dementia, Traumatic Brain Injury Reproductive Disorders: No 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 No Pertinent Family Hx Physical Exam Vital Signs Vital Signs - First Documented 09/07/22 15:07 Temp 36.3 Pulse 77 Resp 18 B/P (MAP) 170/99 (122) Pulse Ox 95 O2 Delivery Room Air Capillary Refill : Less Than 3 Seconds Height, Weight, BMI Height: 5'9.00" Weight: 171lbs. 9.0oz. 77.260803nu; 20.00 BMI Method:Stated General Appearance: No Apparent Distress, WD/WN HEENT: PERRL/EOMI, Pharynx Normal Neck: Non Tender, Supple Respiratory: Lungs Clear, Normal Breath Sounds Cardiovascular: Regular Rate, Rhythm, No Murmur Gastrointestinal: Non Tender Extremity: Normal Range of Motion, Non Tender, No Calf Tenderness, Pedal Edema (1+ bilateral lower extremity) Neurologic/Psychiatric: Alert, Oriented x3 Skin: Normal Color, Warm/Dry Procedures/Interventions Date of ETT Placement: Sep 10, 2020 Time of ETT Placement: 929 Suture Size: 4-0 Progress/Results/Core Measures Results/Orders Lab Results Laboratory Tests Test 09/07/22 15:10 Range/Units White Blood Count 12.3 H 4.3-11.0 10^3/uL Red Blood Count 4.08 3.80-5.11 10^6/uL Hemoglobin 12.6 11.5-16.0 g/dL Hematocrit 38 35-52 % Mean Corpuscular Volume 92 80-99 fL Mean Corpuscular Hemoglobin 31 25-34 pg Mean Corpuscular Hemoglobin Concent 34 32-36 g/dL Red Cell Distribution Width 13.6 10.0-14.5 % Platelet Count 285 130-400 10^3/uL Mean Platelet Volume 9.7 9.0-12.2 fL Immature Granulocyte % (Auto) 0 % Neutrophils (%) (Auto) 79 H 42-75 % Lymphocytes (%) (Auto) 10 L 12-44 % Monocytes (%) (Auto) 9 0-12 % Eosinophils (%) (Auto) 1 0-10 % Basophils (%) (Auto) 1 0-10 % Neutrophils # (Auto) 9.7 H 1.8-7.8 10^3/uL Lymphocytes # (Auto) 1.2 1.0-4.0 10^3/uL Monocytes # (Auto) 1.1 H 0.0-1.0 10^3/uL Eosinophils # (Auto) 0.1 0.0-0.3 10^3/uL Basophils # (Auto) 0.1 0.0-0.1 10^3/uL Immature Granulocyte # (Auto) 0.1 0.0-0.1 10^3/uL Prothrombin Time 16.6 H 12.2-14.7 SEC INR Comment 1.3 0.8-1.4 Activated Partial Thromboplast Time 32 24-35 SEC Sodium Level 140 135-145 MMOL/L Potassium Level 3.6 3.6-5.0 MMOL/L Chloride Level 102 98-107 MMOL/L Carbon Dioxide Level 26 21-32 MMOL/L Anion Gap 12 5-14 MMOL/L Blood Urea Nitrogen 23 H 7-18 MG/DL Creatinine 1.28 0.60-1.30 MG/DL Estimat Glomerular Filtration Rate 42 BUN/Creatinine Ratio 18 Glucose Level 140 H 70-105 MG/DL Calcium Level 9.2 8.5-10.1 MG/DL Corrected Calcium 9.4 8.5-10.1 MG/DL Magnesium Level 2.0 1.6-2.4 MG/DL Total Bilirubin 0.6 0.1-1.0 MG/DL Aspartate Amino Transf (AST/SGOT) 34 5-34 U/L Alanine Aminotransferase (ALT/SGPT) 28 0-55 U/L Alkaline Phosphatase 134 40-136 U/L Myoglobin 63.7 10.0-92.0 NG/ML Troponin I 0.095 H <0.028 NG/ML Total Protein 7.1 6.4-8.2 GM/DL Albumin 3.8 3.2-4.5 GM/DL Lipase 21 8-78 U/L My Orders Orders - MOLLY ESCALANTE MD Cbc With Automated Diff (09/07/22 15:13) Magnesium (09/07/22 15:13) Chest 1 View, Ap/Pa Only (09/07/22 15:13) Comprehensive Metabolic Panel (09/07/22 15:13) Myoglobin Serum (09/07/22 15:13) Protime With Inr (09/07/22 15:13) Partial Thromboplastin Time (09/07/22 15:13) O2 (09/07/22 15:13) Monitor-Rhythm Ecg Trace Only (09/07/22 15:13) Lipase (09/07/22 15:13) Troponin I [place] (09/07/22 15:13) Ed Admission (Communication) (09/07/22 17:47) Vital Signs/I&O 09/07/22 15:07 Temp 36.3 Pulse 77 Resp 18 B/P (MAP) 170/99 (122) Pulse Ox 95 O2 Delivery Room Air Blood Pressure Mean: 122 Progress Progress Note : Progress Note Seen and evaluated. IV by EMS. Patient has had aspirin by EMS. No indication for nitroglycerin currently as she is chest pain-free. We will initiate chest pain protocol including CBC, CMP, troponin, myoglobulin and I will add lipase. Chest x-ray and EKG ordered. Monitor patient. Differential diagnosis includes cardiac event, electrolyte abnormality, chest pain, noncardiac chest pain. 1550: Chest x-ray shows quite large cardiac silhouette without signs of failure or infiltrate. Pending radiology review. Patient resting comfortably. 1607: CBC shows slightly elevated white count at 12.3 with normal hemoglobin and slig ht left shift. Chemistries pending. 1748: Troponin is slightly elevated. This does seem to be a theme with her in the past. She had heart cath and September 2021 which does show small vessel disease with patent stent at that time. Chemistries are otherwise normal with the exception of slightly elevated glucose. Coags are consistent with Xarelto use with slightly elevated PTT. I did discuss the case with Dr. Dixon including current findings. From his view, patient can be admitted for further work-up or potentially could be sent home with the patient's wishes. I did discuss the case with Dr. Villegas afterwards, patient's primary care provider. She knows the patient well. She would like the patient admitted for further evaluation. She will write orders. Patient is safe for medical surgical floor at this point. Admit, observation status. Patient agrees to plan. Initial ECG Impression Date: Sep 07, 2022 Initial ECG Impression Time: 15:14 Initial ECG Rate: 77 Initial ECG Comparisson: Unchanged (03/19/2022) Comment Paced rhythm AV dual paced without evidence of ST elevation [place]. Interpreted by me. Diagnostic Imaging Diagonstic Imaging: Xray Plain Films/CT/US/NM/MRI: chest Comments NAME: JAZMÍN GRIDER [facility] REC#: [id number] PT STATUS: REG ER : 1940 PHYSICIAN: MOLLY ESCALANTE MD ADMIT DATE: 09/07/22/ER Draft Date of Exam:09/07/22 CHEST 1 VIEW, AP/PA ONLY CLINICAL INDICATION: Patient with chest pain which started about 25 minutes prior to arrival. EXAM: Portable chest x-ray, upright view. COMPARISON: Chest x-ray dated 07/04/2022. FINDINGS: Lungs/pleura: Lungs are clear. There is no pneumothorax. There is no pleural effusion. Mediastinum: Unremarkable. Pulmonary vasculature: Unremarkable. Heart: Stable cardiomegaly. Postop changes to the chest with valvuloplasty and cardiac pacemaker again seen, stable. A loop recorder is again seen overlying the left chest. Bones/extrathoracic soft tissue: There is right curvature of the thoracolumbar spine. There are degenerative spurs involving the thoracic spine. Old healed fracture of the proximal right humerus is seen. IMPRESSION: 1: There is no radiographic evidence of an acute cardiopulmonary process. 2: There is cardiomegaly with no significant pulmonary vascular congestion. 3: The remainder of this exam shows no significant interval change compared to the prior study of comparison. Dictated on workstation # [id number] Dict: 09/07/22 1543 Trans: 09/07/22 [facility] [id number] Interpreted by: EDWARDO COUGHLIN MD Electronically signed by: Reviewed: Reviewed by Me Departure Communication (Admissions) Time/Spoke to Admitting Phy: 17:48 Time/Spoke to Consulting Phy: 17:42 Impression Primary Impression: Chest pain Qualified Codes: R07.9 - Chest pain, unspecified Additional Impression: Elevated troponin Disposition: ADMITTED INPATIENT Condition: Stable Admissions Decision to Admit Reason: Admit from ER (General) Decision to Admit/Date: Sep 07, 2022 Time/Decision to Admit Time: 17:42 Departure-Patient Inst. Referrals: DAYA VILLEGAS DO (PCP/Family) Primary Care Physician Scripts Gabapentin (Gabapentin) 100 Mg Capsule 100 MG PO BID for 30 Days, CAP Prov: DAYA VILLEGAS DO 09/07/22 MOLLY ESCALANTE MD Sep 07, 2022 15:20
[2022-09-07 15:39] LABS: BASOPHILS # (AUTO) 0.1 10^3/uL (0.0-0.1); BASOPHILS % (AUTO) 1 % (0-10); EOSINOPHILS # (AUTO) 0.1 10^3/uL (0.0-0.3); EOSINOPHILS % (AUTO) 1 % (0-10); HEMATOCRIT 38 % (35-52); HEMOGLOBIN 12.6 g/dL (11.5-16.0); LYMPHOCYTES # (AUTO) 1.2 10^3/uL (1.0-4.0); LYMPHOCYTES % (AUTO) 10 % (12-44); MEAN CORPUSCULAR HEMOGLOBIN 31 pg (25-34); MEAN CORPUSCULAR HGB CONC 34 g/dL (32-36); MEAN CORPUSCULAR VOLUME 92 fL (80-99); MEAN PLATELET VOLUME 9.7 fL (9.0-12.2); MONOCYTES # (AUTO) 1.1 10^3/uL (0.0-1.0); MONOCYTES % (AUTO) 9 % (0-12); NEUTROPHILS # (AUTO) 9.7 10^3/uL (1.8-7.8); NEUTROPHILS % (AUTO) 79 % (42-75); PLATELET COUNT 285 10^3/uL (130-400); WHITE BLOOD COUNT 12.3 10^3/uL (4.3-11.0)
--- NOTE | 2022-09-07 15:52 | Diagnostic Imaging Report ---
CLINICAL INDICATION: Patient with chest pain which started about 25 minutes prior to arrival. EXAM: Portable chest x-ray, upright view. COMPARISON: Chest x-ray dated 07/04/2022. FINDINGS: Lungs/pleura: Lungs are clear. There is no pneumothorax. There is no pleural effusion. Mediastinum: Unremarkable. Pulmonary vasculature: Unremarkable. Heart: Stable cardiomegaly. Postop changes to the chest with valvuloplasty and cardiac pacemaker again seen, stable. A loop recorder is again seen overlying the left chest. Bones/extrathoracic soft tissue: There is right curvature of the thoracolumbar spine. There are degenerative spurs involving the thoracic spine. Old healed fracture of the proximal right humerus is seen. IMPRESSION: 1: There is no radiographic evidence of an acute cardiopulmonary process. 2: There is cardiomegaly with no significant pulmonary vascular congestion. 3: The remainder of this exam shows no significant interval change compared to the prior study of comparison. Dictated by: Dictated on workstation # [id number]
[2022-09-07 16:07] LABS: ALBUMIN 3.8 GM/DL (3.2-4.5); POTASSIUM 3.6 MMOL/L (3.6-5.0)
[2022-09-07 16:08] LABS: CALCIUM 9.2 MG/DL (8.5-10.1)
[2022-09-07 16:10] LABS: TOTAL PROTEIN 7.1 GM/DL (6.4-8.2)
[2022-09-07 16:11] LABS: BILIRUBIN,TOTAL 0.6 MG/DL (0.1-1.0)
[2022-09-07 16:13] LABS: CREATININE SERUM 1.28 MG/DL (0.60-1.30)
[2022-09-07 16:19] LABS: INR 1.3 (0.8-1.4); PROTHROMBIN TIME PATIENT 16.6 SEC (12.2-14.7)
[2022-09-07] MEDS ORDERED: AMIO200T65 PO (18:42)
[2022-09-07] MEDS ORDERED: GABA-486 PO (18:42)
[2022-09-07] MEDS ORDERED: MELATONIN 3 MG TABLET PO PRN (18:45)
[2022-09-07] MEDS ORDERED: LACTULOSE SYRUP 10GM/15ML (ENULOSE) 30ML UDC PO PRN (18:45)
[2022-09-07] MEDS ORDERED: CALCIUM CARBONATE 500 MG (TUMS) TAB.CHEW PO PRN (18:45)
[2022-09-07] MEDS ORDERED: MILK OF MAGNESIA 400 MG/5 ML 30 ML UDC PO PRN (18:45)
[2022-09-07] MEDS ORDERED: diphenhydrAMINE 25 MG TAB (BENADRYL) PO PRN (18:45)
[2022-09-07] MEDS ORDERED: ANTACID SUSP 30 ML UDC (MYLANTA) PO PRN (18:45)
[2022-09-07] MEDS ORDERED: NALOXONE 0.4 MG/ML 1 ML (NARCAN) VIAL IV PRN (18:45)
[2022-09-07] MEDS ORDERED: ACETAMINOPHEN 325 MG TABLET PO PRN (18:45)
[2022-09-07] MEDS ORDERED: cloNIDine 0.1 MG (CATAPRES) TAB PO PRN (18:45)
[2022-09-07] MEDS ORDERED: BISACODYL 10 MG SUPP (DULCOLAX) PR PRN (18:45)
[2022-09-07] MEDS ORDERED: polyethylene glycoL POWDER 17 GM (MIRALAX) PACK PO PRN (18:45)
[2022-09-07] MEDS ORDERED: ONDANSETRON 4 MG/2 ML (SDV) Z0FRAN IV PRN (18:45)
[2022-09-07] MEDS ORDERED: NITROGLYCERIN 0.4 MG SL TABS BTL 25'S SL PRN ×2 (18:45)
[2022-09-07] MEDS ORDERED: diphenhydrAMINE 50 MG/ML INJ (BENADRYL) IVP PRN (18:45)
[2022-09-07] MEDS ORDERED: ONDANSETRON 4 MG (ZOFRAN) ORAL DISSOLVE TAB PO PRN (18:45)
[2022-09-07] MEDS ORDERED: PATIENT MAY USE OWN MEDS, ALL PO SCH (18:45)
[2022-09-07] MEDS ORDERED: morphine INJ 4 MG/ML 1 ML (VIAL/SYRINGE) IV PRN (18:45)
[2022-09-07] MEDS ORDERED: DIPHENOXYLATE/ATROPINE 2.5MG/0.025MG (LOMOTIL) TAB PO PRN (19:00)
[2022-09-07 19:06] VITALS: BP 170/99
[2022-09-07] MEDS ORDERED: RT-ALBUTEROL SULF 2.5 MG/3 ML PRE-MIX VIAL INH PRN (19:15)
[2022-09-07 20:10] VITALS: BP 165/78
[2022-09-07] MEDS: SENNOSIDES 8.6 MG (SENOKOT) TAB PO SCH (20:22)
[2022-09-07] MEDS: DICLOFENAC 1% GEL 100 GM (VOLTAREN) TUBE TOP SCH (20:22)
[2022-09-07] MEDS: GABAPENTIN 100 MG (NEURONTIN) CAP PO SCH (20:22)
[2022-09-07] MEDS: DOCUSATE SODIUM 100 MG (COLACE) CAP PO SCH (20:22)
[2022-09-07] MEDS ORDERED: AMIODARONE 200 MG (CORDARONE) TAB PO SCH (21:00)
[2022-09-07 23:29] VITALS: BP 166/84
[2022-09-08 03:33] VITALS: BP 157/81
[2022-09-08 05:35] LABS: BASOPHILS % (AUTO) 0 % (0-10); EOSINOPHILS # (AUTO) 0.2 10^3/uL (0.0-0.3); EOSINOPHILS % (AUTO) 2 % (0-10); HEMATOCRIT 35 % (35-52); HEMOGLOBIN 11.6 g/dL (11.5-16.0); LYMPHOCYTES # (AUTO) 1.5 10^3/uL (1.0-4.0); LYMPHOCYTES % (AUTO) 16 % (12-44); MEAN CORPUSCULAR HEMOGLOBIN 31 pg (25-34); MEAN CORPUSCULAR HGB CONC 33 g/dL (32-36); MEAN CORPUSCULAR VOLUME 93 fL (80-99); MEAN PLATELET VOLUME 9.8 fL (9.0-12.2); MONOCYTES % (AUTO) 11 % (0-12); NEUTROPHILS # (AUTO) 6.6 10^3/uL (1.8-7.8); NEUTROPHILS % (AUTO) 71 % (42-75); PLATELET COUNT 247 10^3/uL (130-400); WHITE BLOOD COUNT 9.3 10^3/uL (4.3-11.0)
[2022-09-08 05:58] LABS: ALBUMIN 3.2 GM/DL (3.2-4.5); BILIRUBIN,TOTAL 0.5 MG/DL (0.1-1.0); CALCIUM 8.9 MG/DL (8.5-10.1); CREATININE SERUM 1.28 MG/DL (0.60-1.30); POTASSIUM 3.3 MMOL/L (3.6-5.0); TOTAL PROTEIN 6.2 GM/DL (6.4-8.2)
[2022-09-08] MEDS: LEVOTHYROXINE 75 MCG (LEVOTHROID) TABLET PO SCH (06:09)
[2022-09-08] MEDS: KCL 10 MEQ TAB (MICRO K) PO SCH (06:09)
[2022-09-08] MEDS ORDERED: CALCIUM CARB + VIT D 600 MG (CALCARB + D) TAB PO SCH (08:00)
[2022-09-08] MEDS: DIGOXIN 0.125 MG (LANOXIN) TAB PO SCH (08:05)
[2022-09-08] MEDS: meTOprolol SUCCINATE 100 MG (TOPROL XL) TAB PO SCH (08:05)
[2022-09-08] MEDS: FUROSEMIDE 40 MG (LASIX) TAB PO SCH (08:05)
[2022-09-08] MEDS: ASPIRIN E.C. 81 MG (ECOTRIN) TAB PO SCH (08:05)
[2022-09-08] MEDS: GABAPENTIN 100 MG (NEURONTIN) CAP PO SCH (08:05)
[2022-09-08] MEDS: SENNOSIDES 8.6 MG (SENOKOT) TAB PO SCH ×2 (08:05→19:35)
[2022-09-08] MEDS: DOCUSATE SODIUM 100 MG (COLACE) CAP PO SCH ×2 (08:06→19:35)
[2022-09-08] MEDS: DICLOFENAC 1% GEL 100 GM (VOLTAREN) TUBE TOP SCH ×2 (08:06→19:35)
[2022-09-08 08:10] VITALS: BP 177/85
[2022-09-08] MEDS ORDERED: NON-FORMULARY MEDICATION 1 EA EA (Calcium Carbonate/Vitamin D3 (Calcium + Vitamin D Tablet PO SCH (09:00)
[2022-09-08] MEDS ORDERED: AMIODARONE 200 MG (CORDARONE) TAB PO SCH (09:00)
--- NOTE | 2022-09-08 09:13 | Physical Therapy Evaluation ---
PT Evaluation-General Medical Diagnosis Admission Date Sep 07, 2022 at 17:49 Medical Diagnosis: chest pain Onset Date: Sep 07, 2022 Therapy Diagnosis Therapy Diagnosis: impaired mobility, strength Height/Weight Height (Feet): 5 Height (Inches): 9.00 Weight (Pounds): 171 Weight (Ounces): 9.0 Precautions Precautions/Isolations: Standard Precautions Referral Physician: Lilliam Portillo DO Reason for Referral: Evaluation/Treatment Medical History Pertinent Medical History: Atrial Fib, CAD, Heart Failure, HTN, Hypothroidism Additional Medical History Past Medical History Surgery/Hospitalization HX: RTKR, , ANKLE 1999, INGUINAL HERNIA REPAIR, INTROCCULAR IMPLANTS, PACEMAKER, STENTS , VALVE REPLACMENT, PPM, HYSTERECTOMY AFIB, CAD, HTN, HIGH CHOLESTEROL, DEMENTIA, TBI, ARTHRITIS, HYPOTHRYOIDISM, ERIC Surgeries: Yes (RIGHT INGUINAL HERNIA REPAIR, 1979 RIGHT KNEE SURGERY, ANKLE 1999) Coronary Stent, Hysterectomy, Pacemaker, Valve Replacement Respiratory: Yes Tuberculosis Currently Using CPAP: No Currently Using BIPAP: No Cardiac: Yes (PACEMAKER, VALVE REPLACED) Atrial Fibrillation, Coronary Artery Disease, High Cholesterol, Hypertension, Irregular Heartbeat, Valvular Heart Disease Neurological: Yes Dementia, Traumatic Brain Injury Reproductive Disorders: No 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 Sexually Transmitted Disease: No HIV/AIDS: No Genitourinary: No Gastrointestinal: No Musculoskeletal: Yes (right knee osteoarthritis) Arthritis, Chronic Back Pain Endocrine: Yes Hypothyroidsim HEENT: Yes Cataract Hearing Impairment: Hard of Hearing, Hearing Aide Right, Hearing Aide Left Cancer: No Psychosocial: No (HX OF DEPRESSION YEARS AGO) Integumentary: No Blood Disorders: No Adverse Reaction/Blood Tranf: No Reviewed History: Yes Social History Home: Single Level Current Living Status: Spouse 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 Prior Prior Level of Function SCALE: Activities may be completed with or without assistive devices. 8-Qzsrlvxvjm-fmhuoan completes the activity by him/herself with no assistance from a helper. 5-Set-up or Clean-up Assistance-helper sets up or cleans up; patient completes activity. Anderson assists only prior to or following the activity. 4-Supervision or Touching Assistance-helper provides verbal cues and/or touching/steadying and/or contact guard assistance as patient completes activity. Assistance may be provided throughout the activity or intermittently. 3-Partial/Moderate Assistance-helper does LESS THAN HALF the effort. Anderson lifts, holds or supports trunk or limbs, but provides less than half the effort. 2-Substantial/Maximal Assistance-helper does MORE THAN HALF the effort. Anderson lifts or holds trunk or limbs and provides more than half the effort. 2-Pxkbwusyx-knvczn does ALL the effort. Patient does none of the effort to complete the activity. Or, the assistance of 2 or more helpers is required for the patient to complete the activity. If activity was not attempted, code reason: 7-Patient Refused. 9-Not Applicable-not attempted and the patient did not perform the activity before the current illness, exacerbation or injury. 10-Not Attempted due to Environmental Limitations-(lack of equipment, weather restraints, etc.). 88-Not Attempted due to Medical Conditions or Safety Concerns. Bed Mobility: 6 Transfers (B,C,W/C): 3 Gait: 3 Indoor Mobility (Ambulation): Needed Some Help Prior Devices Use: Walker PT Evaluation-Current Subjective Patient in bed pre tx, agrees to PT, has no complaints of pain. Pt/Family Goals to be independent at home Objective Patient Orientation: Person, Place, Situation ROM/Strength ROM Lower Extremities WNL Strength Lower Extremities grossly 3+/5 BLE Sensory Vision: Wears Glasses Hearing: Impaired Sensation Right Lower Extremit: Impaired Sensation Left Lower Extremity: Impaired Transfers Roll Left to Right (QC): 3 Lying to Sitting/Side of Bed(Q: 3 Sit to Stand (QC): 4 Chair/Khw-lj-Bkxxm Xfer(QC): 4 Min assist for supine to sit, CGA for sit to stand, she was able to take a few steps to the recliner, ambulated about 5' to the recliner Balance Sitting Static: Normal Sitting Dynamic: Normal Standing Static: Good Standing Dynamic: Good Treatment BLE seated exercises x20 (AP, LAQ) Assessment/Needs Patient in recliner post tx with nurse call, phone, tray, all needs met. Patient has impaired mobility, strength, endurance. Patient needs a little assist for supine to sit but just CGA for sit to stand and transfers. Rehab Potential: Fair PT Correction Goals Correction Goals PT Correction Goals Time Frame: Sep 15, 2022 Roll Left & Right (QC): 6 Sit to Lying (QC): 6 Lying-Sitting on Side/Bed(QC): 6 Sit to Stand (QC): 4 (SBA) Chair/Eej-op-Qfsng Xfer(QC): 4 (SBA) Walk 10 feet (QC): 4 (SBA) Walk 50ft with 2 Turns (QC): 4 (SBA) PT Plan Problem List Problem List: Activity Tolerance, Functional Strength, Safety, Balance, Gait, Transfer, Bed Mobility, ROM Treatment/Plan Treatment Plan: Continue Plan of Care Treatment Plan: Bed Mobility, Education, Functional Activity Gilda, Functional Strength, Gait, Safety, Therapeutic Exercise, Transfers Treatment Duration: Sep 15, 2022 Frequency: 6 times per week Estimated Hrs Per Day: .25 hour per day Patient and/or Family Agrees t: Yes Safety Risks/Education Patient Education: Gait Training, Transfer Techniques, Correct Positioning, Safety Issues Teaching Recipient: Patient Teaching Methods: Demonstration, Discussion Response to Teaching: Reinforcement Needed Discharge Recommendations Plan Patient will perform bed mobility and transfer training, balance and endurance training, functional strengthening, gait training, and education, to improve functional mobility and independence at home. Therapy Discharge Recommendati: Scheduled Assistance, Home & Family, Post Acute PT Time Time In: 819 Time Out: 834 DATE: Sep 08, 2022 Total Billed Treatment Time: 15 Total Billed Treatment 1 visit SABRINA SHAW PT Sep 08, 2022 09:13
--- NOTE | 2022-09-08 11:09 | Occupational Therapy Eval ---
OT Evaluation-General/PLF Medical Diagnosis Admission Date Sep 07, 2022 at 17:49 Medical Diagnosis: chest pain Onset Date: Sep 07, 2022 Therapy Diagnosis Therapy Diagnosis: weakness/debility Height/Weight Height (Feet): 5 Height (Inches): 9.00 Weight (Pounds): 171 Weight (Ounces): 9.0 Precautions Precautions/Isolations: Fall Prevention, Standard Precautions Weight Bear Status Weight Bearing Restriction: Weight Bearing/Tolerated Referral Physician: Lilliam Portillo DO Referral Reason: Activity Tolerance, Self Care, Evaluation/Treatment Medical History Pertinent Medical History: Atrial Fib, CAD, Heart Failure, HTN, Hypothroidism Current History arrived EMS d/t c/o Chest pain Reviewed History: Yes Social History Home: Single Level Current Living Status: Spouse Entry Into Home: Level Entry ADL-Prior Level of Function SCALE: Activities may be completed with or without assistive devices. 2-Amkmprvsjm-rhreyxh completes the activity by him/herself with no assistance from a helper. 5-Set-up or Clean-up Assistance-helper sets up or cleans up; patient completes activity. [place] assists only prior to or following the activity. 4-Supervision or Touching Assistance-helper provides verbal cues and/or touching/steadying and/or contact guard assistance as patient completes activity. Assistance may be provided throughout the activity or intermittently. 3-Partial/Moderate Assistance-helper does LESS THAN HALF the effort. [place] lifts, holds or supports trunk or limbs, but provides less than half the effort. 2-Substantial/Maximal Assistance-helper does MORE THAN HALF the effort. [place] lifts or holds trunk or limbs and provides more than half the effort. 5-Xvxreftsf-izfdeb does ALL the effort. Patient does none of the effort to complete the activity. Or, the assistance of 2 or more helpers is required for the patient to complete the activity. If activity was not attempted, code reason: 7-Patient Refused. 9-Not Applicable-not attempted and the patient did not perform the activity before the current illness, exacerbation or injury. 10-Not Attempted due to Environmental Limitations-(lack of equipment, weather restraints, etc.). 88-Not Attempted due to Medical Conditions or Safety Concerns. ADL PLOF Comments Patient reports she perform ADL herself at home, sometimes her helps her Self Care: Needed Some Help Functional Cognition: Needed Some Help Drive Self: No OT Current Status Subjective Up in recliner, wanting breakfast Pain Numeric Pain Scale: 0-No Pain Comment: c/o pain, reports pain last night in chest near sternum Mental Status/Objective Patient Orientation: Person, Confused, Place, Time, Situation Current Glasses/Contacts: Yes Upper Extremity ROM BUE WFLS Upper Extremity Strength +3/5 grossly ADL-Treatment ADL-Current Ordered breakfast w/ OT Eating (QC): 6 Oral Hygiene (QC): 5 Shower/Bathe Self (QC): 88 Upper Body Dressing (QC): 3 Lower Body Dressing (QC): 2 On/Off Footwear (QC): 2 Toileting Hygiene (QC): 3 Education OT Patient Education: Correct positioning, Energy conservation, Exercise program, Modified ADL techniques, Progress toward Goal/Update tx plan, Purpose of tx/functional activities, Reviewed precautions, Rehab process, Safety issues, Transfer techniques, Use of adapted equipment Teaching Recipient: Patient Teaching Methods: Demonstration, Discussion Response to Teaching: Verbalize Understanding, Return Demonstration, Reinforcement Needed OT Learning Strategist Goals Learning Strategist Goals Time Frame: Sep 18, 2022 Eating (QC): 6 Oral Hygiene (QC): 6 Toileting Hygiene (QC): 6 Shower/Bathe Self (QC): 5 Upper Body Dressing (QC): 6 Lower Body Dressing (QC): 6 On/Off Footwear (QC): 6 Additional Goals: 1-Demonstrate ADL Tasks, 2-Verbalize Understanding, 3- ImproveStrength/Gilda 1=Demonstrate adherence to instructed precautions during ADL tasks. 2=Patient will verbalize/demonstrate understanding of assistive devices/modifications for ADL. 3=Patient will improve strength/tolerance for activity to enable patient to perform ADL's. OT Education/Plan Problem List/Assessment Assessment: Decreased Activ Tolerance, Decreased Safety Aware, Decreased UE Strength, Impaired Bed Mobility, Impaired Cognition, Impaired Coordination, Impaired Funct Balance, Impaired Self-Care Skills Discharge Recommendations Plan/Recommendations: Continue POC Therapy Discharge Recommendati: 24 Hour Supervision, Post Acute OT Treatment Plan/Plan of Care Treatment,Training & Education: Yes Patient would benefit from OT for education, treatment and training to promote independence in ADL's, mobility, safety and/or upper extremity function for ADL's. Plan of Care: ADL Retraining, Cognitive Retraining, Functional Mobility, Group Exercise/Act as Ind, Orthotic Fitting/Training, UE Funct Exercise/Act Treatment Duration: Sep 18, 2022 Frequency: 3 times per week (3-5 times per week) Estimated Hrs Per Day: .25 hour per day Agreement: Yes Rehab Potential: Fair Time Start Time: 08:58 Stop Time: 09:10 DATE: Sep 08, 2022 Total Time Billed (hr/min): 12 Billed Treatment Time 1 visit EVL 12 min RENETTA SCHULZ OT Sep 08, 2022 11:08
[2022-09-08] MEDS ORDERED: AMIO200T65 PO (11:31)
[2022-09-08] MEDS ORDERED: ATOR20TA66 PO (11:31)
--- NOTE | 2022-09-08 11:43 | Consultation-Cardiology ---
HPI-Cardiology Cardiology Consultation Date of Consultation 09/08/22 Date of Admission Time Seen by Provider: 09:00 Indication: Chest pain, elevated troponin HPI Patient is an 81 y/o female with history of CAD, AVR, PAF, HTN. Presented to the ER with complaints of chest tightness while sitting in her chair last night. Reports episode lasted for approx 5-10 minutes before resolving on its own. Associated dypsnea, diaphoresis and nausea at time of event. Denies any active chest pain at this time. Denies any syncope or peripheral edema. C/o generalized fatigue and weakness. Home Medications & Allergies Allergies: Coded Allergies: Penicillins (Verified Allergy, Unknown, 06/23/21) pineapple (Verified Allergy, Unknown, 06/23/21) Home Medication List Reviewed: Yes FMX-Lfyysg-Fieaef Hx Patient Social History Marital Status: Employed/Student: retired Smoking Status: Never a Smoker Recent Hopitalizations: No Have you traveled recently?: No Alcohol Use?: Yes Immunizations Up To Date Tetanus Booster (TDap): Unknown Date of Pneumonia Vaccine: Apr 12, 2018 Date of Influenza Vaccine: May 10, 2022 Past Medical History CAD, PAF, HTN, HLP. Family Medical History Significant Family History: No Pertinent Family Hx Family History: Patient reports no known family medical history. Review of Systems-General Review of Systems Constitutional: see HPI; No chills, No fever; malaise, weakness EENTM: see HPI, no symptoms reported Respiratory: see HPI; No cough; short of breath Cardiovascular: see HPI, chest pain; No edema; Hx of Intervention; No p alpitations, No syncope; vascular heart diseas Gastrointestinal: No abdominal pain, No constipation Musculoskeletal: no symptoms reported Psychiatric/Neurological: No Symptoms Reported Reviewed Test Results Reviewed Test Results Lab Laboratory Tests 09/07/22 15:10: White Blood Count 12.3H, Red Blood Count 4.08, Hemoglobin 12.6, Hematocrit 38, Mean Corpuscular Volume 92, Mean Corpuscular Hemoglobin 31, Mean Corpuscular Hemoglobin Concent 34, Red Cell Distribution Width 13.6, Platelet Count 285, Mean Platelet Volume 9.7, Immature Granulocyte % (Auto) 0, Neutrophils (%) (Auto) 79H, Lymphocytes (%) (Auto) 10L, Monocytes (%) (Auto) 9, Eosinophils (%) (Auto) 1, Basophils (%) (Auto) 1, Neutrophils # (Auto) 9.7H, Lymphocytes # (Auto) 1.2, Monocytes # (Auto) 1.1H, Eosinophils # (Auto) 0.1, Basophils # (Auto) 0.1, Immature Granulocyte # (Auto) 0.1, Prothrombin Time 16.6H, INR Comment 1.3, Activated Partial Thromboplast Time 32, Sodium Level 140, Potassium Level 3.6, Chloride Level 102, Carbon Dioxide Level 26, Anion Gap 12, Blood Urea Nitrogen 23H, Creatinine 1.28, Estimat Glomerular Filtration Rate 42, BUN/Creatinine Ratio 18, Glucose Level 140H, Calcium Level 9.2, Corrected Calcium 9.4, Magnesium Level 2.0, Total Bilirubin 0.6, Aspartate Amino Transf (AST/SGOT) 34, Alanine Aminotransferase (ALT/SGPT) 28, Alkaline Phosphatase 134, Myoglobin 63.7, Troponin I 0.095H, Total Protein 7.1, Albumin 3.8, Lipase 21 09/08/22 05:05: White Blood Count 9.3, Red Blood Count 3.80, Hemoglobin 11.6, Hematocrit 35, Mean Corpuscular Volume 93, Mean Corpuscular Hemoglobin 31, Mean Corpuscular Hemoglobin Concent 33, Red Cell Distribution Width 13.7, Platelet Count 247, Mean Platelet Volume 9.8, Immature Granulocyte % (Auto) 0, Neutrophils (%) (Auto) 71, Lymphocytes (%) (Auto) 16, Monocytes (%) (Auto) 11, Eosinophils (%) (Auto) 2, Basophils (%) (Auto) 0, Neutrophils # (Auto) 6.6, Lymphocytes # (Auto) 1.5, Monocytes # (Auto) 1.0, Eosinophils # (Auto) 0.2, Basophils # (Auto) 0.0, Immature Granulocyte # (Auto) 0.0, Sodium Level 141, Potassium Level 3.3L, Chloride Level 101, Carbon Dioxide Level 28, Anion Gap 12, Blood Urea Nitrogen 26H, Creatinine 1.28, Estimat Glomerular Filtration Rate 42, BUN/Creatinine Ratio 20, Glucose Level 95, Calcium Level 8.9, Corrected Calcium 9.5, Total Bilirubin 0.5, Aspartate Amino Transf (AST/SGOT) 25, Alanine Aminotransferase (ALT/SGPT) 22, Alkaline Phosphatase 109, Troponin I 0.147H, Total Protein 6.2L, Albumin 3.2, Triglycerides Level 111, Cholesterol Level 122, LDL Cholesterol Direct 79, VLDL Cholesterol 22, HDL Cholesterol 27L Physical Exam Physical Exam Vital Signs Vital Signs - First Documented 09/07/22 09/07/22 15:07 19:06 Temp 36.3 Pulse 77 Resp 18 B/P (MAP) 170/99 (122) Pulse Ox 95 O2 Delivery Room Air FiO2 21 Capillary Refill : Less Than 3 Seconds Height, Weight, BMI Height: 5'9.00" Weight: 171lbs. 9.0oz. [id number]; 18.77 BMI Method:Stated General Appearance: No Apparent Distress, WD/WN HEENT: PERRL/EOMI, Pharynx Normal Neck: Non Tender, Supple Respiratory: Lungs Clear, Normal Breath Sounds Cardiovascular: Regular Rate, Rhythm, No Murmur Gastrointestinal: Non Tender Extremity: Normal Range of Motion, Non Tender, No Calf Tenderness, Pedal Edema (1+ bilateral lower extremity) Neurologic/Psychiatric: Alert, Oriented x3 Skin: Normal Color, Warm/Dry A/P-Cardiology Admission Diagnosis Chest pain Elevated troponin CAD PAF Assessment/Plan Chest pain, nonspecific etiology, mild elevation in troponin, non-ST elevation myocardial infarction, history of coronary artery disease with a stent to the LAD. Patient has been having some intermittent chest pain and dyspnea. Currently feeling better, controlled with medication, recommend conservative management Discussed with patient and her . Continue to monitor Generalized weakness, loss of energy, has been deteriorating significantly recently, will consult rehab for evaluation Coronary artery disease- history of stent to the LAD, cardiac catheterization was carried out on September 30, 2021 showing patent stents with mild coronary artery disease nonobstructive disease, small vessel disease distally Atrial fibrillation, paroxysmal, maintained on Xarelto. Maintained on Toprol XL 100 mg daily, Cardizem CD 240 mg daily, digoxin 0.125 mg daily. Amiodarone recently decreased to 200mg daily, continue to monitor History of severe aortic valve stenosis, status post TAVR done September 06, 2017 in [place] with uneventful deployment of a 26 mm Medtronic Evolut Pro. Repeat 2D echo was done on June 20, 2021 showing moderate to severe LVH with normal systolic function, significant deterioration in the aortic valve with a peak gradient of 91 mmHg, valve area 1.4 cm. Mild mitral valve stenosis, pulmonary hypertension with PA pressure 50 to 55 mmHg Repeat 2D echo September 2021 showed peak gradient of 23 mmHg, mean gradient of 12 mmHg, which is similar to the finding previously, I feel that the echo finding on June 2021 were erroneously high. Patient has severe left ventricular hypertrophy. Evaluate 2D echocardiogram Congestive heart failure,chronic left ventricular diastolic dysfunction with severe left ventricular hypertrophy, maintained on diuretics. Anemia, continue to monitor H/H Pulmonary hypertension, monitor PA pressure Mild bilateral carotid stenosis, history of syncope. Last ultrasound was done in October 2021. Sick sinus syndrome, history of permanent pacemaker. Last pacemaker interrogation was done on September 02, 2022, Hypertension, labile blood pressure, difficult to control. Reporting episode of dizziness at home while standing. Instructed to use compression stockings. I am hesitant to do any changes to her blood pressure medication due to her falling and weakness and orthostatic hypotension Hyperlipidemia, lipid profile done on March 17, 2022 showing total cholesterol 163, triglyceride 155, HDL 28, LDL 112. Continue to monitor Hypothyroidism, monitor TSH Dementia, more deterioration recently Generalized weakness Thank you for allowing us to participate in the management of Ms. Baker. This is Samra Zhu PA-C, as a scribe for Dr. Dixon. Patient was seen and evaluated with Samra, I interviewed and examined the patient, discussed the management plan, made few modification to the note using Italic font Patient was admitted with chest pain and diaphoresis feeling flushed. Had mild elevation in troponin probably due to small vessel disease. Underlying coronary artery disease is present, had a cardiac catheterization done in September 2021. I recommend conservative management at this time unless patient have significant accelerating angina then will consider cardiac catheterization I recommend evaluation for acute rehab or residential. Clinical Quality Measures AMI/AHF: ASA po Prior to arrival: Yes SAMRA SAAVEDRA Sep 08, 2022 11:43 EDY DIXON MD Sep 08, 2022 13:16
[2022-09-08 11:44] VITALS: BP 168/80
--- NOTE | 2022-09-08 11:47 | History & Physical ---
EDIN DYER 09/08/22 1146: History of Present Illness History of Present Illness Reason for visit/HPI CC: Chest Pain HPI: Corina Baker is a 81 yo female with a history of AFiB w/ RVR, CAD, Dementia, S/P stent, pacemaker, and valve replacement who presented to the ER for evaluation and management of chest pain. The chest pain began yesterday (09/07/22) evening, was associated with pressure, sweating, and dizziness, and resolved upon presentation to the ER. She was administered 325 mg aspirin, Nitro was held due to the chest pain resolving on its own. Patient states that this happened around dinner time, and pointed to her epigastric region when directed to show where the pain was. Of note, on 09/07, her troponin was elevated at .095 ng/ml; repeat troponin today (09/08) resulted at 0.147 ng/ml. Patient denies having any chest pain, dizziness, nausea, or vomiting at the time of my visit. Corina was also working with physical therapy during my examination. She did state that she was feeling 'confused' today, but was pleasant and conversational. Date of Admission Sep 07, 2022 at 17:49 Date Seen by a Provider: Sep 08, 2022 Time Seen by a Provider: 08:00 I consulted on this patient on Attending Physician Lilliam Villegas DO Admitting Physician Admitting Physician: Lilliam Villegas DO Attending Physician: Lilliam Villegas DO Consult Allergies and Home Medications Allergies Coded Allergies: Penicillins (Verified Allergy, Unknown, 06/23/21) pineapple (Verified Allergy, Unknown, 06/23/21) Patient Home Medication List Home Medication List Reviewed: Yes Amiodarone HCl (Amiodarone HCl) 200 Mg Tablet, 200 MG PO BID, (Reported) Entered as Reported by: KATRINA CRUZ on 09/08/22 1131 Last Action: Reviewed Atorvastatin Calcium (Atorvastatin Calcium) 20 Mg Tablet, 20 MG PO HS, (Reported) Entered as Reported by: KATRINA CRUZ on 09/08/22 1131 Last Action: Reviewed Digoxin (Digoxin) 125 Mcg (0.125 Mg) Tablet, 125 MCG PO DAILY Prescribed by: LILLIAM VILLEGAS on 03/19/22 1144 Last Action: Reviewed Diltiazem HCl (Diltiazem 24Hr ER) 240 Mg Cap.er.24h, 240 MG PO DAILY Prescribed by: LILLIAM VILLEGAS on 03/19/221143 Last Action: Reviewed Furosemide (Furosemide) 40 Mg Tablet, 40 MG PO DAILY Prescribed by: LILLIAM VILLEGAS on 03/19/221143 Last Action: Reviewed Gabapentin (Gabapentin) 100 Mg Capsule, 100 MG PO BID Prescribed by: LILLIAM VILLEGAS on 09/07/221841 Last Action: Reviewed Levothyroxine Sodium (Levothyroxine Sodium) 75 Mcg Tablet, 75 MCG PO DAILY Prescribed by: LILLIAM VILLEGAS on 03/19/221143 Last Action: Reviewed Metoprolol Succinate (Metoprolol Succinate) 100 Mg Tab.er.24h, 100 MG PO DAILY Prescribed by: LILLIAM VILLEGAS on 03/19/221143 Last Action: Reviewed Potassium Chloride (K-Tab ER) 10 Meq Tablet.er, 20 MEQ PO DAILY Prescribed by: LILLIAM VILLEGAS on 03/19/221143 Last Action: Reviewed Rivaroxaban (Xarelto) 20 Mg Tablet, 20 MG PO DAILY Prescribed by: LILLIAM VILLEGAS on 03/19/221143 Last Action: Reviewed Discontinued Medications Amiodarone HCl (Amiodarone HCl) 200 Mg Tablet, 200 MG PO BID Discontinued Reason: Duplicate Order Prescribed by: LILLIAM VILLEGAS on 09/07/221841 Last Action: Discontinued Aspirin (Aspirin EC) 81 Mg Tablet.dr, 81 MG PO DAILY Discontinued Reason: No Longer Taking Prescribed by: LILLIAM VILLEGAS on 03/19/221143 Last Action: Discontinued Calcium Carbonate/Vitamin D3 (Calcium + Vitamin D Tablet) 600 Mg Calcium-5 Mcg (200 Unit) Tablet, 1 EACH PO DAILY Discontinued Reason: No Longer Taking Prescribed by: LILLIAM VILLEGAS on 03/19/221143 Last Action: Discontinued Diclofenac Sodium (Diclofenac Sodium) 1 % Gel..gram., 0 GM TOP QID Discontinued Reason: No Longer Taking Prescribed by: LILLIAM VILLEGAS on 03/19/221143 Last Action: Discontinued Diphenoxylate HCl/Atropine (Diphenoxylate-Atrop 2.5-0.025) 2.5 Mg-0.025 Mg Tablet, 1 EA PO BID PRN for DIARRHEA Discontinued Reason: No Longer Taking Prescribed by: LILLIAM VILLEGAS on 8/12/22 1145 Last Action: Discontinued Nitroglycerin (Nitroglycerin) 0.4 Mg Tab.subl, 0 MG SL UD PRN for CHEST PAIN (ANGINA) Discontinued Reason: No Longer Taking Prescribed by: LILLIAM VILLEGAS on 03/19/22 1144 Last Action: Discontinued Oxycodone Hcl (Oxyir Tablet) 5 Mg Tab, 5 MG PO Q4HR PRN for PAIN-SEE DOSE INSTRUCTIONS Discontinued Reason: No Longer Taking Prescribed by: LILLIAM VILLEGAS on 03/19/22 1145 Last Action: Discontinued Past Gkfnytq-Vavjld-Rvsbpi Hx Patient Social History Tobacco Use?: No Smoking Status: Never a Smoker Smokeless Tobacco Frequency: Never a User Use of E-Cig and/or Vaping dev: No Substance use?: No Alcohol Use?: Yes Alcohol type: Beer, Wine Alcohol Frequency: Once in a while Pt feels they are or have been: No Immunizations Up To Date Date of Influenza Vaccine: May 10, 2022 First/Initial COVID19 Vaccinat: october 2020 Second COVID19 Vaccination Darryl: november 2020 Tetanus Booster (TDap): Unknown Hepatitis A: No Hepatitis B: No PED Vaccines UTD: No Date of Pneumonia Vaccine: Apr 12, 2018 Seasonal Allergies Seasonal Allergies: Yes Current Status status: No Advance Directives: Yes Advance Directive Location: Home Communicates: Verbally Primary Language: Georgian Preferred Spoken Language: Georgian Is interpretation needed?: No Sensory deficits: Hearing impairment Implanted or Applied Medical D: Pacemaker Past Medical History Surgeries: Coronary Stent, Hysterectomy, Pacemaker, Valve Replacement Tuberculosis Currently Using CPAP: No Currently Using BIPAP: No Atrial Fibrillation, Coronary Artery Disease, High Cholesterol, Hypertension, Irregular Heartbeat, Valvular Heart Disease Dementia, Traumatic Brain Injury 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 No Pertinent Family Hx Review of Systems Constitutional: weakness EENTM: No blurred vision, No double vision Respiratory: No cough, No short of breath Cardiovascular: No chest pain (denies at the time of my visit), No palpitations Gastrointestinal: No abdominal pain, No constipation Genitourinary: No dysuria, No frequency Musculoskeletal: No gout, No joint pain Psychiatric/Neurological: Anxiety; Denies Depressed; Other (Dementia) Physical Exam Vital Signs Vital Signs - First Documented 09/07/22 09/07/22 15:07 19:06 Temp 36.3 Pulse 77 Resp 18 B/P (MAP) 170/99 (122) Pulse Ox 95 O2 Delivery Room Air FiO2 21 Capillary Refill : Less Than 3 Seconds Height, Weight, BMI Height: 5'9.00" Weight: 171lbs. 9.0oz. [id number]; 18.77 BMI Method:Stated General Appearance: No Apparent Distress, Cachetic Eyes: Bilateral Eye Normal Inspection, Bilateral Eye PERRL HEENT: PERRL/EOMI, TMs Normal, Normal ENT Inspection Neck: Normal Inspection, Non Tender, Supple Respiratory: Chest Non Tender, Lungs Clear, No Accessory Muscle Use, No Respiratory Distress, Decreased Breath Sounds Cardiovascular: Irregularly Irregular Gastrointestinal: Normal Bowel Sounds, No Organomegaly, Non Tender Rectal: Deferred Neurologic/Psychiatric: Alert, Normal Mood/Affect Skin: Normal Color, Warm/Dry Comments Assessment/Plan Assessment and Plan Chest Pain Elevated troponins A-fib CAD S/P Pacemaker, valve replacement, and stent placement -Cardiology consulted (appreciate consult) -Repeat troponin was elevated at .147 ng/ml today from .95 ng/ml the previous day -CXR revealed cardiomegaly with no evidence of acute cardio-pulmonary process -On Xarelto, Toprol, Cardizem, Amiodarone, aspirin, Digoxin, Imdur, and PRN n itro Dementia General debility Is working with PT, OT HTN HLD Hypothyroidism -On levothyroxine -Consider assessing TSH Clinical Quality Measures AMI/AHF: ASA po Prior to arrival: Yes Results Results/Procedures Lab Laboratory Tests 09/07/22 15:10 09/08/22 05:05 Radiology Date of Exam:09/07/22 CHEST 1 VIEW, AP/PA ONLY CLINICAL INDICATION: Patient with chest pain which started about 25 minutes prior to arrival. EXAM: Portable chest x-ray, upright view. COMPARISON: Chest x-ray dated 07/04/2022. FINDINGS: Lungs/pleura: Lungs are clear. There is no pneumothorax. There is no pleural effusion. Mediastinum: Unremarkable. Pulmonary vasculature: Unremarkable. Heart: Stable cardiomegaly. Postop changes to the chest with valvuloplasty and cardiac pacemaker again seen, stable. A loop recorder is again seen overlying the left chest. Bones/extrathoracic soft tissue: There is right curvature of the thoracolumbar spine. There are degenerative spurs involving the thoracic spine. Old healed fracture of the proximal right humerus is seen. IMPRESSION: 1: There is no radiographic evidence of an acute cardiopulmonary process. 2: There is cardiomegaly with no significant pulmonary vascular congestion. 3: The remainder of this exam shows no significant interval change compared to the prior study of comparison. LILLIAM VILLEGAS DO 09/09/22 0516: Allergies and Home Medications Allergies Coded Allergies: Penicillins (Verified Allergy, Unknown, 06/23/21) pineapple (Verified Allergy, Unknown, 06/23/21) Patient Home Medication List Home Medication List Reviewed: Yes Amiodarone HCl (Amiodarone HCl) 200 Mg Tablet, 200 MG PO BID, (Reported) Entered as Reported by: KATRINA CRUZ on 09/08/22 1131 Last Action: Reviewed Atorvastatin Calcium (Atorvastatin Calcium) 20 Mg Tablet, 20 MG PO HS, (Reported) Entered as Reported by: KATRINA CRUZ on 09/08/22 1131 Last Action: Reviewed Digoxin (Digoxin) 125 Mcg (0.125 Mg) Tablet, 125 MCG PO DAILY Prescribed by: LILLIAM VILLEGAS on 03/19/22 114 Last Action: Reviewed Diltiazem HCl (Diltiazem 24Hr ER) 240 Mg Cap.er.24h, 240 MG PO DAILY Prescribed by: LILLIAM VILLEGAS on 03/19/22 114 Last Action: Reviewed Furosemide (Furosemide) 40 Mg Tablet, 40 MG PO DAILY Prescribed by: LILLIAM VILLEGAS on 03/19/22 114 Last Action: Reviewed Gabapentin (Gabapentin) 100 Mg Capsule, 100 MG PO BID Prescribed by: LILLIAM VILLEGAS on 09/07/22 1842 Last Action: Reviewed Levothyroxine Sodium (Levothyroxine Sodium) 75 Mcg Tablet, 75 MCG PO DAILY Prescribed by: LILLIAM VILLEGAS on 03/19/22 114 Last Action: Reviewed Metoprolol Succinate (Metoprolol Succinate) 100 Mg Tab.er.24h, 100 MG PO DAILY Prescribed by: LILLIAM VILLEGAS on 03/19/22 114 Last Action: Reviewed Potassium Chloride (K-Tab ER) 10 Meq Tablet.er, 20 MEQ PO DAILY Prescribed by: LILLIAM VILLEGAS on 03/19/221143 Last Action: Reviewed Rivaroxaban (Xarelto) 20 Mg Tablet, 20 MG PO DAILY Prescribed by: LILLIAM VILLEGAS on 03/19/221143 Last Action: Reviewed Discontinued Medications Amiodarone HCl (Amiodarone HCl) 200 Mg Tablet, 200 MG PO BID Discontinued Reason: Duplicate Order Prescribed by: LILLIAM VILLEGAS on 09/07/221841 Last Action: Discontinued Aspirin (Aspirin EC) 81 Mg Tablet.dr, 81 MG PO DAILY Discontinued Reason: No Longer Taking Prescribed by: LILLIAM VILLEGAS on 03/19/221143 Last Action: Discontinued Calcium Carbonate/Vitamin D3 (Calcium + Vitamin D Tablet) 600 Mg Calcium-5 Mcg (200 Unit) Tablet, 1 EACH PO DAILY Discontinued Reason: No Longer Taking Prescribed by: LILLIAM VILLEGAS on 03/19/221143 Last Action: Discontinued Diclofenac Sodium (Diclofenac Sodium) 1 % Gel..gram., 0 GM TOP QID Discontinued Reason: No Longer Taking Prescribed by: LILLIAM VILLEGAS on 03/19/221143 Last Action: Discontinued Diphenoxylate HCl/Atropine (Diphenoxylate-Atrop 2.5-0.025) 2.5 Mg-0.025 Mg Tablet, 1 EA PO BID PRN for DIARRHEA Discontinued Reason: No Longer Taking Prescribed by: LILLIAM VILLEGAS on 03/19/221144 Last Action: Discontinued Nitroglycerin (Nitroglycerin) 0.4 Mg Tab.subl, 0 MG SL UD PRN for CHEST PAIN (ANGINA) Discontinued Reason: No Longer Taking Prescribed by: LILLIAM VILLEGAS on 03/19/221143 Last Action: Discontinued Oxycodone Hcl (Oxyir Tablet) 5 Mg Tab, 5 MG PO Q4HR PRN for PAIN-SEE DOSE INSTRUCTIONS Discontinued Reason: No Longer Taking Prescribed by: LILLIAM VILLEGAS on 03/19/221144 Last Action: Discontinued Past Ljjtodv-Rsophy-Qmuobc Hx Patient Social History Marrital Status: cohabiting Employed/Student: retired Smoking Status: Never a Smoker Past Medical History Atrial Fibrillation, Coronary Artery Disease, High Cholesterol, Hypertension, Peripheral Vascular, Valvular Heart Disease Dementia Family Medical History Patient reports no known family medical history. Review of Systems Constitutional: see HPI Physical Exam General Appearance: No Apparent Distress, WD/WN, Chronically ill Respiratory: Lungs Clear, Normal Breath Sounds Cardiovascular: Irregularly Irregular Assessment/Plan Assessment and Plan Problems: (1) Chest pain Status: Resolved Qualifiers: Qualified Codes: R07.9 - Chest pain, unspecified (2) Elevated troponin Status: Acute (3) HTN (hypertension) Status: Chronic (4) Debility Status: Acute Admission Diagnosis Admission Status: Observation Supervisory-Addendum Brief Verification & Attestation Participated in pt care: history, MDM, physical Personally performed: exam, history, MDM, supervision of care Care discussed with: Medical Student Procedures: n/a Results interpretation: Verified all documentation Verification and Attestation of Medical Student E/M Service A medical student performed and documented this service in my presence. I reviewed and verified all information documented by the medical student and made modifications to such information, when appropriate. I personally performed the physical exam and medical decision making. Lilliam Villegas Sep 09, 2022,05:16 EDIN DYER Sep 08, 2022 11:46 LILLIAM VILLEGAS DO Sep 09, 2022 05:16
[2022-09-08] MEDS ORDERED: FLU QUAD HIGH DOSE 240 MCG/0.7 ML 2022-23 (FLUZONE) IM ONE (12:30)
[2022-09-08] MEDS: ISOSORBIDE MONONITRATE 30 MG (IMDUR) TAB PO SCH (14:26)
[2022-09-08 16:09] VITALS: BP 159/81
[2022-09-08] MEDS: RIVAROXABAN 20 MG TABLET (XARELTO) PO SCH (17:38)
[2022-09-08 19:28] VITALS: BP 121/56
[2022-09-09] VITALS (7 sets, daily range): BP systolic 120–175; BP diastolic 55–86
[2022-09-09] MEDS: LEVOTHYROXINE 75 MCG (LEVOTHROID) TABLET PO SCH (05:52)
[2022-09-09] MEDS: KCL 10 MEQ TAB (MICRO K) PO SCH (05:52)
[2022-09-09 05:54] LABS: BASOPHILS # (AUTO) 0.1 10^3/uL (0.0-0.1); BASOPHILS % (AUTO) 1 % (0-10); EOSINOPHILS # (AUTO) 0.2 10^3/uL (0.0-0.3); EOSINOPHILS % (AUTO) 2 % (0-10); HEMATOCRIT 35 % (35-52); HEMOGLOBIN 11.5 g/dL (11.5-16.0); LYMPHOCYTES # (AUTO) 1.5 10^3/uL (1.0-4.0); LYMPHOCYTES % (AUTO) 15 % (12-44); MEAN CORPUSCULAR HEMOGLOBIN 31 pg (25-34); MEAN CORPUSCULAR HGB CONC 33 g/dL (32-36); MEAN CORPUSCULAR VOLUME 93 fL (80-99); MEAN PLATELET VOLUME 9.7 fL (9.0-12.2); MONOCYTES % (AUTO) 10 % (0-12); NEUTROPHILS # (AUTO) 7.1 10^3/uL (1.8-7.8); NEUTROPHILS % (AUTO) 72 % (42-75); PLATELET COUNT 287 10^3/uL (130-400); WHITE BLOOD COUNT 9.9 10^3/uL (4.3-11.0)
[2022-09-09 06:13] LABS: ALBUMIN 3.2 GM/DL (3.2-4.5)
[2022-09-09 06:14] LABS: POTASSIUM 3.6 MMOL/L (3.6-5.0)
[2022-09-09 06:15] LABS: CALCIUM 8.8 MG/DL (8.5-10.1)
[2022-09-09 06:16] LABS: TOTAL PROTEIN 6.2 GM/DL (6.4-8.2)
[2022-09-09 06:18] LABS: BILIRUBIN,TOTAL 0.4 MG/DL (0.1-1.0)
[2022-09-09 06:20] LABS: CREATININE SERUM 1.23 MG/DL (0.60-1.30)
[2022-09-09] MEDS: FUROSEMIDE 40 MG (LASIX) TAB PO SCH (08:38)
[2022-09-09] MEDS: meTOprolol SUCCINATE 100 MG (TOPROL XL) TAB PO SCH (08:38)
[2022-09-09] MEDS: DOCUSATE SODIUM 100 MG (COLACE) CAP PO SCH ×2 (08:39→20:04)
[2022-09-09] MEDS: GABAPENTIN 100 MG (NEURONTIN) CAP PO SCH (08:39)
[2022-09-09] MEDS: ASPIRIN E.C. 81 MG (ECOTRIN) TAB PO SCH (08:39)
[2022-09-09] MEDS: DICLOFENAC 1% GEL 100 GM (VOLTAREN) TUBE TOP SCH ×2 (08:39→20:04)
[2022-09-09] MEDS: DIGOXIN 0.125 MG (LANOXIN) TAB PO SCH (08:39)
[2022-09-09] MEDS: ISOSORBIDE MONONITRATE 30 MG (IMDUR) TAB PO SCH (08:39)
[2022-09-09] MEDS: SENNOSIDES 8.6 MG (SENOKOT) TAB PO SCH ×2 (08:39→20:04)
[2022-09-09] MEDS: AMIODARONE 200 MG (CORDARONE) TAB PO SCH (08:39)
--- NOTE | 2022-09-09 08:44 | Cardiology Progress Note ---
Subjective Date Seen by Provider: Sep 09, 2022 Time Seen by Provider: 08:20 Subjective/Events-last exam Patient is sitting up in chair, complaining of bilateral ankle pain. Denies any chest pain Objective-Cardiology Exam Last Set of Vital Signs Vital Signs 09/07/22 09/09/22 19:06 11:29 Temp 36.9 Pulse 66 Resp 18 B/P (MAP) 140/69 (92) Pulse Ox 92 O2 Delivery Room Air FiO2 21 I&O Intake and Output 09/09/22 00:00 Intake Total 870 ml Balance 870 ml Intake Oral 870 ml # Voids 5 General: Alert, Oriented X3, Cooperative HEENT: Atraumatic, PERRLA Neck: Supple, No JVD, No Thyromegaly Lungs: Clear to Auscultation, Normal Air Movement Heart: Regular Rate, Normal S1, Normal S2, No Murmurs Abdomen: Normal Bowel Sounds, Soft, No Tenderness, No Hepatosplenomegaly, No Masses Extremities: No Clubbing, No Cyanosis, No Edema, Normal Pulses, No Tenderness/Swelling Skin: No Rashes, No Breakdown, No Significant Lesion Neuro: Cranial Nerves 3-12 NL Psych/Mental Status: Mood NL Results Lab Laboratory Tests 09/09/22 05:20 A/P-Cardiology Admission Diagnosis Chest pain Elevated troponin CAD PAF Assessment/Plan Chest pain, nonspecific etiology, mild elevation in troponin, non-ST elevation myocardial infarction, history of coronary artery disease with a stent to the LAD. Patient has been having some intermittent chest pain and dyspnea. Currently feeling better, controlled with medication, recommend conservative management. Started on Imdur 30mg daily Discussed with patient and her . Continue to monitor Generalized weakness, loss of energy, has been deteriorating significantly recently, will consult rehab for evaluation Coronary artery disease- history of stent to the LAD, cardiac catheterization was carried out on September 30, 2021 showing patent stents with mild coronary artery disease nonobstructive disease, small vessel disease distally Atrial fibrillation, paroxysmal, maintained on Xarelto. Maintained on Toprol XL 100 mg daily, Cardizem CD 240 mg daily, digoxin 0.125 mg daily. Amiodarone recently decreased to 200mg daily, continue to monitor History of severe aortic valve stenosis, status post TAVR done September 06, 2017 in [place] with uneventful deployment of a 26 mm Medtronic Evolut Pro. Repeat 2D echo was done on June 20, 2021 showing moderate to severe LVH with normal systolic function, significant deterioration in the aortic valve with a peak gradient of 91 mmHg, valve area 1.4 cm. Mild mitral valve stenosis, pulm onary hypertension with PA pressure 50 to 55 mmHg Repeat 2D echo September 2021 showed peak gradient of 23 mmHg, mean gradient of 12 mmHg, which is similar to the finding previously, I feel that the echo finding on June 2021 were erroneously high. Patient has severe left ventricular hypertrophy. 2D Echocardiogram done 09/08/22 showing severe concentric hypertrophy, EF 70-75%. Grade 2 diastolic dysfunction. Severely dilated left atrium, dilated right atrium. Mild to moderate . Mechanical valve in aortic position with peak gradient 25mmHg, mean gradient 14mmHg, caculated valve area 1.6cm squared. PA 40-45mmHg. Congestive heart failure,chronic left ventricular diastolic dysfunction with se ayse left ventricular hypertrophy, maintained on diuretics. Anemia, continue to monitor H/H Pulmonary hypertension, monitor PA pressure Mild bilateral carotid stenosis, history of syncope. Last ultrasound was done in October 2021. Sick sinus syndrome, history of permanent pacemaker. Last pacemaker interrogation was done on September 02, 2022, Hypertension, labile blood pressure, difficult to control. Reporting episode of dizziness at home while standing. Instructed to use compression stockings. I am hesitant to do any changes to her blood pressure medication due to her falling and weakness and orthostatic hypotension Hyperlipidemia, lipid profile done on March 17, 2022 showing total cholesterol 163, triglyceride 155, HDL 28, LDL 112. Continue to monitor Hypothyroidism, monitor TSH Dementia, more deterioration recently Generalized weakness Supervisory-Addendum Brief Supervisory Addendum Participated in pt care: history, MDM, physical Personally performed: exam, history, MDM Care discussed with: ANUM Results interpretation: Verified all documentation Notes: Patient was seen and evaluated with Samra, examination performed, management plan was discussed, agree with the current scribed note, I made few changes to the note using Italic font Patient was seen at bedside laying down comfortably, still having generalized weakness Discussed the management plan recommended continuing physical therapy Continue on current medication, no other changes are recommended SAMRA SAAVEDRA Sep 09, 2022 08:44 EDY GOOD MD Sep 09, 2022 12:26
--- NOTE | 2022-09-09 09:02 | Occupational Ther Daily Note ---
OT Current Status-Daily Note Subjective in recliner,remains a little confused however recalls therapist cam in yesterday Mental Status/Objective Patient Orientation: Person, Confused, Place, Situation ADL-Treatment Layered additional hospital gown over existing gown as radha, attempted to ambul ate to bathroom c/o left ankle pain and returned to recliner following 5 feet ambulation w/ FWW/gait belt. Nurse notified and patient given Tylenol Therapy Code Descriptions/Definitions Functional [place] Measure: 0=Not Assessed/NA 4=Minimal Assistance 1=Total Assistance 5=Supervision or Setup 2=Maximal Assistance 6=Modified [place] 3=Moderate Assistance 7=Complete IndependenceSCALE: Activities may be completed with or without assistive devices. 3-Nujpqzvzce-kgphejv completes the activity by him/herself with no assistance f rom a helper. 5-Set-up or Clean-up Assistance-helper sets up or cleans up; patient completes activity. Immaculata assists only prior to or following the activity. 4-Supervision or Touching Assistance-helper provides verbal cues and/or touching/steadying and/or contact guard assistance as patient completes activity. Assistance may be provided throughout the activity or intermittently. 3-Partial/Moderate Assistance-helper does LESS THAN HALF the effort. Immaculata lifts, holds or supports trunk or limbs, but provides less than half the effort. 2-Substantial/Maximal Assistance-helper does MORE THAN HALF the effort. Immaculata lifts or holds trunk or limbs and provides more than half the effort. 6-Yjvxgihfm-cvqqgr does ALL the effort. Patient does none of the effort to complete the activity. Or, the assistance of 2 or more helpers is required for the patient to complete the activity. If activity was not attempted, code reason: 7-Patient Refused. 9-Not Applicable-not attempted and the patient did not perform the activity before the current illness, exacerbation or injury. 10-Not Attempted due to Environmental Limitations-(lack of equipment, weather restraints, etc.). 88-Not Attempted due to Medical Conditions or Safety Concerns. Eating (QC): 6 Oral Hygiene (QC): 5 Upper Body Dressing (QC): 4 Lower Body Dressing (QC): 7 (declined) On/Off Footwear: 2 (wound dressing under socks) Toileting Hygiene (QC): 7 (attempted and pt declined) Toilet Transfer (QC): 7 (attempted and declined) Other Treatment sot/stand transfers and safety education w/ FWW, dynamic functional reach tasks for balance and endurance to return home Education OT Patient Education: Exercise program, Modified ADL techniques, Progress toward Goal/Update tx plan, Purpose of tx/functional activities, Reviewed precautions, Rehab process, Safety issues, Transfer techniques, Use of adapted equipment Teaching Recipient: Patient Teaching Methods: Demonstration, Discussion Response to Teaching: Verbalize Understanding, Reinforcement Needed OT Financial Systems Manager Goals Financial Systems Manager Goals Time Frame: Sep 18, 2022 Eating (QC): 6 Oral Hygiene (QC): 6 Toileting Hygiene (QC): 6 Shower/Bathe Self (QC): 5 Upper Body Dressing (QC): 6 Lower Body Dressing (QC): 6 On/Off Footwear (QC): 6 Additional Goals: 1-Demonstrate ADL Tasks, 2-Verbalize Understanding, 3- ImproveStrength/Gilda 1=Demonstrate adherence to instructed precautions during ADL tasks. 2=Patient will verbalize/demonstrate understanding of assistive devices/modifications for ADL. 3=Patient will improve strength/tolerance for activity to enable patient to perform ADL's. OT Education/Plan Problem List/Assessment Assessment: Decreased Activ Tolerance, Decreased Safety Aware, Decreased UE Strength, Impaired Cognition, Impaired Coordination, Impaired Funct Balance, Impaired Self-Care Skills Discharge Recommendations Plan/Recommendations: Continue POC Therapy Discharge Recommendati: Post Acute OT Treatment Plan/Plan of Care Treatment,Training & Education: Yes Patient would benefit from OT for education, treatment and training to promote independence in ADL's, mobility, safety and/or upper extremity function for ADL's. Plan of Care: ADL Retraining, Cognitive Retraining, Functional Mobility, Group Exercise/Act as Ind, Orthotic Fitting/Training, UE Funct Exercise/Act Treatment Duration: Sep 18, 2022 Frequency: 3 times per week (3-5 times per week) Estimated Hrs Per Day: .25 hour per day Agreement: Yes Rehab Potential: Fair Patient remains in recliner w/ chair alarm set and breakfast tray in place, all need met Time Start Time: 08:25 Stop Time: 08:40 DATE: Sep 09, 2022 Total Time Billed (hr/min): 15 Billed Treatment Time 1 visit FA 15min RENETTA SCHULZ OT Sep 09, 2022 09:02
--- NOTE | 2022-09-09 09:20 | Physical Therapy Daily Note ---
PT Daily Note-Current Subjective Patient agrees to PT. Incontinent urine. Pain Section J - Health Conditions 1. Rarely or not at all 2. Occasionally 3. Frequently 4. Almost constantly 8. Unable to answer Pain Effect on Sleep: 2 Pain Interference with Therapy: 2 Pain Interference w/Day-to-Day: 2 Mental Status Patient Orientation: Person, Time, Situation Transfers SCALE: Activities may be completed with or without assistive devices. 5-Fxfjxwjrwg-jocckup completes the activity by him/herself with no assistance from a helper. 5-Set-up or Clean-up Assistance-helper sets up or cleans up; patient completes activity. [place] assists only prior to or following the activity. 4-Supervision or Touching Assistance-helper provides verbal cues and/or touching/steadying and/or contact guard assistance as patient completes activity. Assistance may be provided throughout the activity or intermittently. 3-Partial/Moderate Assistance-helper does LESS THAN HALF the effort. [place] lifts, holds or supports trunk or limbs, but provides less than half the effort. 2-Substantial/Maximal Assistance-helper does MORE THAN HALF the effort. [place] lifts or holds trunk or limbs and provides more than half the effort. 4-Wklywjauo-ddnobn does ALL the effort. Patient does none of the effort to complete the activity. Or, the assistance of 2 or more helpers is required for the patient to complete the activity. If activity was not attempted, code reason: 7-Patient Refused. 9-Not Applicable-not attempted and the patient did not perform the activity before the current illness, exacerbation or injury. 10-Not Attempted due to Environmental Limitations-(lack of equipment, weather restraints, etc.). 88-Not Attempted due to Medical Conditions or Safety Concerns. Lying to Sitting/Side of Bed(Q: 3 Sit to Stand (QC): 3 Chair/Zjm-cv-Sdqzj Xfer(QC): 3 Toilet Transfer (QC): 3 Gait Training Distance: 20' x 2 Walk 10 feet (QC): 3 Gait Assistive Device: FWW noted right LE lag with gait with tactile and verbal cues to remain upright in FWW and to advance right LE. Assessment Patient requires dependent assist to cleanse after incontinence. Patient gait improved on second attempt with gait training. Patient is up in recliner with chair alarm activated. PT Courtroom Clerk Goals Group Home Goals PT Courtroom Clerk Goals Time Frame: Sep 15, 2022 Roll Left & Right (QC): 6 Sit to Lying (QC): 6 Lying-Sitting on Side/Bed(QC): 6 Sit to Stand (QC): 4 (SBA) Chair/Wao-io-Kogfp Xfer(QC): 4 (SBA) Walk 10 feet (QC): 4 (SBA) Walk 50ft with 2 Turns (QC): 4 (SBA) PT Plan Treatment/Plan Treatment Plan: Continue Plan of Care Treatment Plan: Bed Mobility, Education, Functional Activity Gilda, Functional Strength, Gait, Safety, Therapeutic Exercise, Transfers Treatment Duration: Sep 15, 2022 Frequency: 6 times per week Estimated Hrs Per Day: .25 hour per day Patient and/or Family Agrees t: Yes Time Time In: 800 Time Out: 814 DATE: Sep 09, 2022 Total Billed Treatment Time: 14 Total Billed Treatment 1 visit GT 14 min TOVA MONTERO PT Sep 09, 2022 09:20
--- NOTE | 2022-09-09 13:07 | Progress Note ---
MONTESINOSYOBANIEDIN 09/09/22 1307: Subjective Date Seen by a Provider: Sep 09, 2022 Time Seen by a Provider: 08:00 Subjective/Events-last exam Upon follow-up for chest pain, Corina is laying supine in bed; she states that she had leg pain this AM that prevents ambulation. She states that at rest, her pain is about a 4-5/10. She denies having any bowel movements today, but does have an appetite. She denies having any chest pain, nausea, vomiting, fever, or chills. Medicaid application is currently in progress so that half-way placement to [facility] may be achieved. Patient is pleasant and conversational. Review of Systems General: No Chills, No Night Sweats, No Fatigue HEENT: No Visual Changes, No Sinus Congestion Pulmonary: Dyspnea; No Cough Cardiovascular: No: Chest Pain, Palpitations Gastrointestinal: No: Nausea, Vomiting Genitourinary: No Dysuria, No Frequency Musculoskeletal: No: neck pain, shoulder pain Neurological: Weakness, Incoordination Focused Exam Respiratory: Chest Non Tender, No Accessory Muscle Use, No Respiratory Distress, Decreased Breath Sounds Cardiovascular: Regular Rate, Rhythm, No Gallop, No JVD, No Murmur Capillary Refill: Less Than 3 Seconds Peripheral Pulses: 2+ Radial Pulses (R), 2+ Radial Pulses (L) Skin: normal color, warm/dry, rash (2cm x 2 cm purple/pink lesion on the L posterior heel, and a similar size and color lesion is present on the R lateral ankle) Objective Exam Last Set of Vital Signs Vital Signs Date Time Temp Pulse Resp B/P (MAP) Pulse Ox O2 Delivery O2 Flow Rate FiO2 09/09/22 11:29 36.9 66 18 140/69 (92) 92 Room Air 09/07/22 19:06 21 Capillary Refill : Less Than 3 Seconds I&O Intake and Output 09/09/22 00:00 Intake Total 870 ml Balance 870 ml Intake Oral 870 ml # Voids 5 General: Alert, Cooperative, No Acute Distress HEENT: PERRLA, EOMI Neck: Supple, No JVD Lungs: Clear to Auscultation, Other (decreased breath sounds) Abdomen: Normal Bowel Sounds, Soft Extremities: No Clubbing, No Cyanosis Neuro: Normal Speech, Other Psych/Mental Status: Mood NL, Other (Patient has dementia, and has some confusion) Results Lab Laboratory Tests 09/09/22 05:20: White Blood Count 9.9, Red Blood Count 3.73L, Hemoglobin 11.5, Hematocrit 35, Mean Corpuscular Volume 93, Mean Corpuscular Hemoglobin 31, Mean Corpuscular Hemoglobin Concent 33, Red Cell Distribution Width 13.6, Platelet Count 287, Mean Platelet Volume 9.7, Immature Granulocyte % (Auto) 0, Neutrophils (%) (Auto) 72, Lymphocytes (%) (Auto) 15, Monocytes (%) (Auto) 10, Eosinophils (%) (Auto) 2, Basophils (%) (Auto) 1, Neutrophils # (Auto) 7.1, Lymphocytes # (Auto) 1.5, Monocytes # (Auto) 1.0, Eosinophils # (Auto) 0.2, Basophils # (Auto) 0.1, Immature Granulocyte # (Auto) 0.0, Sodium Level 139, Potassium Level 3.6, Chloride Level 101, Carbon Dioxide Level 27, Anion Gap 11, Blood Urea Nitrogen 23H, Creatinine 1.23, Estimat Glomerular Filtration Rate 44, BUN/Creatinine Ratio 19, Glucose Level 98, Calcium Level 8.8, Corrected Calcium 9.4, Total Bilirubin 0.4, Aspartate Amino Transf (AST/SGOT) 22, Alanine Aminotransferase (ALT/SGPT) 23, Alkaline Phosphatase 106, Total Protein 6.2L, Albumin 3.2 Assessment/Plan Assessment/Plan Assess & Plan/Chief Complaint Chest Pain Elevated troponins A-fib CAD S/P Pacemaker, valve replacement, and stent placement -Cardiology consulted (appreciate consult) -Repeat troponin was elevated at .147 ng/ml on 09/08/22 from .95 ng/ml the previous day -CXR on 09/07/22 revealed cardiomegaly with no evidence of acute cardio-pulmon beti process -On Xarelto, Toprol, Cardizem, Amiodarone, aspirin, Digoxin, Lipitor, Imdur, and PRN nitro -Amiodarone was recently decreased to 200mg -Attempting placement at [facility], however, they do not have an open bed until Sep 14 -SS is working with patient's to coordinate care, will follow Dementia General debility Leg Pain -Is working with PT, OT HTN HLD Hypothyroidism -On levothyroxine -Consider assessing TSH Clinical Quality Measures AMI/AHF: ASA po Prior to arrival: Yes LILLIAM VILLEGAS DO 09/10/22 0524: Assessment/Plan Assessment/Plan Assess & Plan/Chief Complaint Await placement Supervisory-Addendum Brief Verification & Attestation Participated in pt care: history, MDM, physical Personally performed: exam, history, MDM, supervision of care Care discussed with: Medical Student Procedures: n/a Results interpretation: Verified all documentation Verification and Attestation of Medical Student E/M Service A medical student performed and documented this service in my presence. I reviewed and verified all information documented by the medical student and made modifications to such information, when appropriate. I personally performed the physical exam and medical decision making. Lilliam Villegas, Sep 10, 2022,05:23 EDIN DYER Sep 09, 2022 13:07 LILLIAM VILLEGAS DO Sep 10, 2022 05:24
[2022-09-09] MEDS: RIVAROXABAN 20 MG TABLET (XARELTO) PO SCH (18:04)
[2022-09-10 03:27] VITALS: BP 154/74
[2022-09-10 05:24] LABS: BASOPHILS # (AUTO) 0.1 10^3/uL (0.0-0.1); BASOPHILS % (AUTO) 1 % (0-10); EOSINOPHILS # (AUTO) 0.2 10^3/uL (0.0-0.3); EOSINOPHILS % (AUTO) 2 % (0-10); HEMATOCRIT 33 % (35-52); HEMOGLOBIN 11.1 g/dL (11.5-16.0); LYMPHOCYTES # (AUTO) 1.5 10^3/uL (1.0-4.0); LYMPHOCYTES % (AUTO) 15 % (12-44); MEAN CORPUSCULAR HEMOGLOBIN 31 pg (25-34); MEAN CORPUSCULAR HGB CONC 34 g/dL (32-36); MEAN CORPUSCULAR VOLUME 93 fL (80-99); MEAN PLATELET VOLUME 9.4 fL (9.0-12.2); MONOCYTES # (AUTO) 1.1 10^3/uL (0.0-1.0); MONOCYTES % (AUTO) 11 % (0-12); NEUTROPHILS # (AUTO) 7.2 10^3/uL (1.8-7.8); NEUTROPHILS % (AUTO) 71 % (42-75); PLATELET COUNT 268 10^3/uL (130-400); WHITE BLOOD COUNT 10.1 10^3/uL (4.3-11.0)
[2022-09-10 05:44] LABS: ALBUMIN 3.2 GM/DL (3.2-4.5); BILIRUBIN,TOTAL 0.6 MG/DL (0.1-1.0); CALCIUM 8.8 MG/DL (8.5-10.1); CREATININE SERUM 1.07 MG/DL (0.60-1.30); POTASSIUM 3.5 MMOL/L (3.6-5.0); TOTAL PROTEIN 6.3 GM/DL (6.4-8.2)
[2022-09-10] MEDS: LEVOTHYROXINE 75 MCG (LEVOTHROID) TABLET PO SCH (06:29)
[2022-09-10] MEDS ORDERED: KCL 10 MEQ TAB (MICRO K) PO SCH (08:00)
[2022-09-10 08:30] VITALS: BP 150/85
--- NOTE | 2022-09-10 08:56 | Occupational Ther Daily Note ---
OT Current Status-Daily Note Subjective Up in recliner w/ friend and spouse present, reports increased pain today primarily LLE Pain Numeric Pain Scale: 7 (6-7 increases w/ intial movement, diminsihes w/ rest and medication, educaiton for elevation ROM and ICE) Location: Right, Left Location Body Site: Knee Mental Status/Objective Patient Orientation: Normal For Age B white BONNIE compression hose ADL-Treatment Education for use of order make up clerk and sock julio c, each repetition improved in patient ability and reduction of pain and time to perform Therapy Code Descriptions/Definitions Functional [place] Measure: 0=Not Assessed/NA 4=Minimal Assistance 1=Total Assistance 5=Supervision or Setup 2=Maximal Assistance 6=Modified [place] 3=Moderate Assistance 7=Complete IndependenceSCALE: Activities may be completed with or without assistive devices. 5-Jghznnkrvg-uzjuvsz completes the activity by him/herself with no assistance from a helper. 5-Set-up or Clean-up Assistance-helper sets up or cleans up; patient completes activity. [place] assists only prior to or following the activity. 4-Supervision or Touching Assistance-helper provides verbal cues and/or touching/steadying and/or contact guard assistance as patient completes activ ity. Assistance may be provided throughout the activity or intermittently. 3-Partial/Moderate Assistance-helper does LESS THAN HALF the effort. [place] lifts, holds or supports trunk or limbs, but provides less than half the effort. 2-Substantial/Maximal Assistance-helper does MORE THAN HALF the effort. [place] lifts or holds trunk or limbs and provides more than half the effort. 8-Kwgzmmwci-xglwpu does ALL the effort. Patient does none of the effort to complete the activity. Or, the assistance of 2 or more helpers is required for the patient to complete the activity. If activity was not attempted, code reason: 7-Patient Refused. 9-Not Applicable-not attempted and the patient did not perform the activity before the current illness, exacerbation or injury. 10-Not Attempted due to Environmental Limitations-(lack of equipment, weather restraints, etc.). 88-Not Attempted due to Medical Conditions or Safety Concerns. Eating (QC): 6 Oral Hygiene (QC): 6 Shower/Bathe Self (QC): 7 (declined) Upper Body Dressing (QC): 5 Lower Body Dressing (QC): 4 (instruction for use of AD for LB dressing LLE less ROM) On/Off Footwear: 4 (instruction for use of AD for LB dressing LLE less ROM) Toileting Hygiene (QC): 5 Toilet Transfer (QC): 4 Education OT Patient Education: Correct positioning, Energy conservation, Modified ADL techniques, Progress toward Goal/Update tx plan, Purpose of tx/functional activities, Reviewed precautions, Rehab process, Safety issues, Transfer techniques, Use of adapted equipment Teaching Recipient: Patient, Family Teaching Methods: Demonstration, Discussion Response to Teaching: Verbalize Understanding, Return Demonstration OT Mcc Goals Mcc Goals Time Frame: Sep 18, 2022 Eating (QC): 6 Oral Hygiene (QC): 6 Toileting Hygiene (QC): 6 Shower/Bathe Self (QC): 5 Upper Body Dressing (QC): 6 Lower Body Dressing (QC): 6 On/Off Footwear (QC): 6 Additional Goals: 1-Demonstrate ADL Tasks, 2-Verbalize Understanding, 3- ImproveStrength/Gilda 1=Demonstrate adherence to instructed precautions during ADL tasks. 2=Patient will verbalize/demonstrate understanding of assistive devices/modifications for ADL. 3=Patient will improve strength/tolerance for activity to enable patient to perform ADL's. OT Education/Plan Problem List/Assessment Assessment: Decreased Activ Tolerance, Impaired Self-Care Skills Discharge Recommendations Plan/Recommendations: Continue POC Equpiment Recommendations-D/C: Cloud Engagement Partner, Sock Aide Comment discussed options for purchase of ADs, patient likely to go home tomorrow Treatment Plan/Plan of Care Treatment,Training & Education: Yes Patient would benefit from OT for education, treatment and training to promote independence in ADL's, mobility, safety and/or upper extremity function for ADL's. Plan of Care: ADL Retraining, Cognitive Retraining, Functional Mobility, Group Exercise/Act as Ind, Orthotic Fitting/Training, UE Funct Exercise/Act Treatment Duration: Sep 18, 2022 Frequency: 3 times per week (3-5 times per week) Estimated Hrs Per Day: .25 hour per day Agreement: Yes Rehab Potential: Fair Patient remains up in chair, all needs met Time Start Time: 08:13 Stop Time: 08:33 DATE: Sep 10, 2022 Total Time Billed (hr/min): 20 Billed Treatment Time 1 visit ADL1 20 min RENETTA SCHULZ OT Sep 10, 2022 08:56
--- NOTE | 2022-09-10 09:09 | Occupational Ther Daily Note ---
OT Current Status-Daily Note Subjective Reclined in bed w/ breakfast Mental Status/Objective Patient Orientation: Person, Situation Attachments: Drains ADL-Treatment LB sock application, transfer to recliner w/ Max assist of 0ne person with gait belt and FWW Therapy Code Descriptions/Definitions Functional [place] Measure: 0=Not Assessed/NA 4=Minimal Assistance 1=Total Assistance 5=Supervision or Setup 2=Maximal Assistance 6=Modified [place] 3=Moderate Assistance 7=Complete IndependenceSCALE: Activities may be completed with or without assistive devices. 3-Ktamlltmts-xqlostv completes the activity by him/herself with no assistance from a helper. 5-Set-up or Clean-up Assistance-helper sets up or cleans up; patient completes activity. [place] assists only prior to or following the activity. 4-Supervision or Touching Assistance-helper provides verbal cues and/or touching/steadying and/or contact guard assistance as patient completes activity. Assistance may be provided throughout the activity or intermittently. 3-Partial/Moderate Assistance-helper does LESS THAN HALF the effort. [place] lifts, holds or supports trunk or limbs, but provides less than half the effort. 2-Substantial/Maximal Assistance-helper does MORE THAN HALF the effort. [place] lifts or holds trunk or limbs and provides more than half the effort. 9-Lbaylcdky-kbowrb does ALL the effort. Patient does none of the effort to complete the activity. Or, the assistance of 2 or more helpers is required for the patient to complete the activity. If activity was not attempted, code reason: 7-Patient Refused. 9-Not Applicable-not attempted and the patient did not perform the activity before the current illness, exacerbation or injury. 10-Not Attempted due to Environmental Limitations-(lack of equipment, weather restraints, etc.). 88-Not Attempted due to Medical Conditions or Safety Concerns. Eating (QC): 6 Oral Hygiene (QC): 7 (not performed currenetly eating) Shower/Bathe Self (QC): 88 Upper Body Dressing (QC): 2 (posterior LOB and Max assitance needed to sit EOB) Lower Body Dressing (QC): 1 On/Off Footwear: 2 Toileting Hygiene (QC): 7 Toilet Transfer (QC): 7 Other Treatment Education for use of cell phone to be able to communicate w/ spouse Education OT Patient Education: Correct positioning, Energy conservation, Modified ADL techniques, Progress toward Goal/Update tx plan, Purpose of tx/functional activities, Reviewed precautions, Rehab process, Safety issues, Transfer techniques, Use of adapted equipment Teaching Recipient: Patient Teaching Methods: Demonstration, Discussion Response to Teaching: Verbalize Understanding, Reinforcement Needed OT Library Clerk Goals Library Clerk Goals Time Frame: Sep 18, 2022 Eating (QC): 6 Oral Hygiene (QC): 6 Toileting Hygiene (QC): 6 Shower/Bathe Self (QC): 5 Upper Body Dressing (QC): 6 Lower Body Dressing (QC): 6 On/Off Footwear (QC): 6 Additional Goals: 1-Demonstrate ADL Tasks, 2-Verbalize Understanding, 3-ImproveStrength/Gilda 1=Demonstrate adherence to instructed precautions during ADL tasks. 2=Patient will verbalize/demonstrate understanding of assistive devices/modifications for ADL. 3=Patient will improve strength/tolerance for activity to enable patient to perform ADL's. OT Education/Plan Problem List/Assessment Assessment: Decreased Activ Tolerance, Decreased Safety Aware, Decreased UE Strength, Dependent Transfers, Impaired Bed Mobility, Impaired Cognition, Impaired Coordination, Impaired Funct Balance, Impaired Self-Care Skills Discharge Recommendations Plan/Recommendations: Continue POC Therapy Discharge Recommendati: Post Acute OT Treatment Plan/Plan of Care Treatment,Training & Education: Yes Patient would benefit from OT for education, treatment and training to promote independence in ADL's, mobility, safety and/or upper extremity function for ADL's. Plan of Care: ADL Retraining, Cognitive Retraining, Functional Mobility, Group Exercise/Act as Ind, Orthotic Fitting/Training, UE Funct Exercise/Act Comment Remains up in recliner, phone on tray table, continues w/ breakfast, chair alarm set, all needs met Treatment Duration: Sep 18, 2022 Frequency: 3 times per week (3-5 times per week) Estimated Hrs Per Day: .25 hour per day Agreement: Yes Rehab Potential: Fair Time Start Time: 08:34 Stop Time: 08:53 DATE: Sep 10, 2022 Total Time Billed (hr/min): 19 Billed Treatment Time 1 visit ADL 1 19 min RENETTA SCHULZ OT Sep 10, 2022 09:08
[2022-09-10] MEDS: DOCUSATE SODIUM 100 MG (COLACE) CAP PO SCH (09:36)
[2022-09-10] MEDS: ISOSORBIDE MONONITRATE 30 MG (IMDUR) TAB PO SCH (09:36)
[2022-09-10] MEDS: AMIODARONE 200 MG (CORDARONE) TAB PO SCH (09:36)
[2022-09-10] MEDS: DIGOXIN 0.125 MG (LANOXIN) TAB PO SCH (09:37)
[2022-09-10] MEDS: FUROSEMIDE 40 MG (LASIX) TAB PO SCH (09:37)
[2022-09-10] MEDS: GABAPENTIN 100 MG (NEURONTIN) CAP PO SCH (09:37)
[2022-09-10] MEDS: SENNOSIDES 8.6 MG (SENOKOT) TAB PO SCH (09:37)
[2022-09-10] MEDS: meTOprolol SUCCINATE 100 MG (TOPROL XL) TAB PO SCH (09:37)
[2022-09-10] MEDS: ASPIRIN E.C. 81 MG (ECOTRIN) TAB PO SCH (09:37)
[2022-09-10] MEDS: DICLOFENAC 1% GEL 100 GM (VOLTAREN) TUBE TOP SCH (09:45)
--- NOTE | 2022-09-10 09:57 | Physical Therapy Daily Note ---
PT Daily Note-Current Subjective Patient agrees to PT. Pain Section J - Health Conditions 1. Rarely or not at all 2. Occasionally 3. Frequently 4. Almost constantly 8. Unable to answer Pain Effect on Sleep: 2 Pain Interference with Therapy: 2 Pain Interference w/Day-to-Day: 2 Mental Status Patient Orientation: Confused Transfers SCALE: Activities may be completed with or without assistive devices. 9-Vzgmndcllc-isbqnlq completes the activity by him/herself with no assistance from a helper. 5-Set-up or Clean-up Assistance-helper sets up or cleans up; patient completes activity. [place] assists only prior to or following the activity. 4-Supervision or Touching Assistance-helper provides verbal cues and/or touching/steadying and/or contact guard assistance as patient completes activity. Assistance may be provided throughout the activity or intermittently. 3-Partial/Moderate Assistance-helper does LESS THAN HALF the effort. [place] lifts, holds or supports trunk or limbs, but provides less than half the effort. 2-Substantial/Maximal Assistance-helper does MORE THAN HALF the effort. [place] lifts or holds trunk or limbs and provides more than half the effort. 5-Oabdabbgc-pcxgsf does ALL the effort. Patient does none of the effort to complete the activity. Or, the assistance of 2 or more helpers is required for the patient to complete the activity. If activity was not attempted, code reason: 7-Patient Refused. 9-Not Applicable-not attempted and the patient did not perform the activity before the current illness, exacerbation or injury. 10-Not Attempted due to Environmental Limitations-(lack of equipment, weather restraints, etc.). 88-Not Attempted due to Medical Conditions or Safety Concerns. Sit to Stand (QC): 2 Chair/Wwb-gz-Afvzu Xfer(QC): 2 Gait Training Distance: 10' Walk 10 feet (QC): 2 Gait Assistive Device: FWW unable to advance right LE on this date requiring max assist for patient 's safety. Exercises Seated Therapy Exercises: Ankle pumps, Long arc quads, Hip flexion Seated Reps: 15 (AAROM) Assessment Patient remains up in recliner with chair alarm activated. Patient unable to advance right LE with gait training on this date. PT to increase activity as tolerated by patient. PT Quality Technician Goals Quality Technician Goals PT Group Home Goals Time Frame: Sep 15, 2022 Roll Left & Right (QC): 6 Sit to Lying (QC): 6 Lying-Sitting on Side/Bed(QC): 6 Sit to Stand (QC): 4 (SBA) Chair/Epl-hz-Znefj Xfer(QC): 4 (SBA) Walk 10 feet (QC): 4 (SBA) Walk 50ft with 2 Turns (QC): 4 (SBA) PT Plan Treatment/Plan Treatment Plan: Continue Plan of Care Treatment Plan: Bed Mobility, Education, Functional Activity Gilda, Functional Strength, Gait, Safety, Therapeutic Exercise, Transfers Treatment Duration: Sep 15, 2022 Frequency: 6 times per week Estimated Hrs Per Day: .25 hour per day Patient and/or Family Agrees t: Yes Time Time In: 910 Time Out: 927 DATE: Sep 10, 2022 Total Billed Treatment Time: 17 Total Billed Treatment 1 visit FA 17 min TOVA MONTERO PT Sep 10, 2022 09:57
[2022-09-10] MEDS ORDERED: HYDROcodone/APAP 5 MG/325 MG (LORTAB) TAB PO PRN (11:45)
[2022-09-10] MEDS ORDERED: ASPI-1238 PO (12:04)
[2022-09-10] MEDS ORDERED: ACHD5005 PO (12:04)
[2022-09-10] MEDS ORDERED: NITR0.4T42 SL (12:04)
[2022-09-10] MEDS ORDERED: RIVA15TA2 PO (12:04)
[2022-09-10] MEDS ORDERED: ISOS30TA82 PO (12:04)
--- NOTE | 2022-09-10 12:05 | Cardiology Progress Note ---
Subjective Date Seen by Provider: Sep 10, 2022 Time Seen by Provider: 12:04 Subjective/Events-last exam Patient was seen at bedside, sitting comfortably, feeling better Review of Systems General: No Chills, No Night Sweats; Fatigue, Malaise; No Appetite, No Other HEENT: No Head Aches, No Visual Changes, No Eye Pain, No Ear Pain, No Dysphasia, No Sinus Congestion, No Post Nasal Drip, No Sore Throat, No Other Pulmonary: No Dyspnea, No Cough, No Pleuritic Chest Pain, No Other Cardiovascular: No: Chest Pain, Palpitations, Orthopnea, Paroxysmal Noc. Dyspnea, Edema, Lt Headedness, Other Objective-Cardiology Exam Last Set of Vital Signs Vital Signs 09/07/22 09/10/22 19:06 08:30 Temp 36.9 Pulse 61 Resp 18 B/P (MAP) 150/85 (106) Pulse Ox 96 O2 Delivery Room Air FiO2 21 I&O Intake and Output 09/10/22 00:00 Intake Total 1400 ml Output Total 150 ml Balance 1250 ml Intake Oral 1400 ml Output Urine Total 150 ml # Voids 2 General: Alert, Cooperative, No Acute Distress HEENT: PERRLA, EOMI Neck: Supple, No JVD Lungs: Clear to Auscultation, Other (decreased breath sounds) Heart: Regular Rate, Normal S1, Normal S2, No Murmurs Abdomen: Normal Bowel Sounds, Soft Extremities: No Clubbing, No Cyanosis Skin: No Rashes, No Breakdown, No Significant Lesion Neuro: Normal Speech, Other Psych/Mental Status: Mood NL, Other (Patient has dementia, and has some confusion) Results Lab Laboratory Tests 09/10/22 05:10 A/P-Cardiology Admission Diagnosis Chest pain Elevated troponin CAD PAF Assessment/Plan Chest pain, nonspecific etiology, mild elevation in troponin, non-ST elevation myocardial infarction, history of coronary artery disease with a stent to the L AD. Patient has been having some intermittent chest pain and dyspnea. Currently feeling better, controlled with medication, recommend conservative management. Started on Imdur 30mg daily Discussed with patient and her . Continue to monitor Generalized weakness, loss of energy, has been deteriorating significantly recently Receiving physical therapy Possible placement in a prison, managed by primary care team Coronary artery disease- history of stent to the LAD, cardiac catheterization was carried out on September 30, 2021 showing patent stents with mild coronary artery disease nonobstructive disease, small vessel disease distally Atrial fibrillation, paroxysmal, maintained on Xarelto. Maintained on Toprol XL 100 mg daily, Cardizem CD 240 mg daily, digoxin 0.125 mg daily. Amiodarone recently decreased to 200mg daily, continue to monitor History of severe aortic valve stenosis, status post TAVR done September 06, 2017 in [place] with uneventful deployment of a 26 mm Medtronic Evolut Pro. Repeat 2D echo was done on June 20, 2021 showing moderate to severe LVH with normal systolic function, significant deterioration in the aortic valve with a peak gradient of 91 mmHg, valve area 1.4 cm. Mild mitral valve stenosis, pulmonary hypertension with PA pressure 50 to 55 mmHg Repeat 2D echo September 2021 showed peak gradient of 23 mmHg, mean gradient of 12 mmHg, which is similar to the finding previously, I feel that the echo finding on June 2021 were erroneously high. Patient has severe left ventricular hypertrophy. 2D Echocardiogram done 09/08/22 showing severe concentric hypertrophy, EF 70-75%. Grade 2 diastolic dysfunction. Severely dilated left atrium, dilated right atrium. Mild to moderate . Mechanical valve in aortic position with peak gradient 25mmHg, mean gradient 14mmHg, caculated valve area 1.6cm squared. PA 40-45mmHg. Congestive heart failure,chronic left ventricular diastolic dysfunction with severe left ventricular hypertrophy, maintained on diuretics. Anemia, continue to monitor H/H Pulmonary hypertension, monitor PA pressure Mild bilateral carotid stenosis, history of syncope. Last ultrasound was done in October 2021. Sick sinus syndrome, history of permanent pacemaker. Last pacemaker interrogation was done on September 02, 2022, Hypertension, labile blood pressure, difficult to control. Reporting episode of dizziness at home while standing. Instructed to use compression stockings. I am hesitant to do any changes to her blood pressure medication due to her falling and weakness and orthostatic hypotension Hyperlipidemia, lipid profile done on March 17, 2022 showing total cholesterol 163, triglyceride 155, HDL 28, LDL 112. Continue to monitor Hypothyroidism, monitor TSH Dementia, more deterioration recently Generalized weakness EDY GOOD MD Sep 10, 2022 12:04
--- NOTE | 2022-09-10 12:06 | Discharge Summary ---
Diagnosis/Chief Complaint Date of Admission Sep 07, 2022 at 17:49 Date of Discharge Discharge Date: Sep 10, 2022 Discharge Diagnosis Problems: (1) Chest pain Status: Resolved Qualifiers: Qualified Codes: R07.9 - Chest pain, unspecified (2) Elevated troponin Status: Acute (3) HTN (hypertension) Status: Chronic (4) Debility Status: Acute Reason Hospital Visit Discharge Summary Discharge Physical Examination Allergies: Coded Allergies: Penicillins (Verified Allergy, Unknown, 06/23/21) pineapple (Verified Allergy, Unknown, 06/23/21) Vitals & I&Os Vital Signs Date Time Temp Pulse Resp B/P (MAP) Pulse Ox O2 Delivery O2 Flow Rate FiO2 09/10/22 13:47 09/10/22 12:48 61 09/10/22 12:24 37.1 18 95 Room Air 09/07/22 19:06 21 General Appearance: Alert, Oriented X3, Cooperative Respiratory: Clear to Auscultation Cardiovascular: Regular Rate Psych/Mental Status: Mental Status NL Hospital Course Was the Problem List Reviewed?: Yes Date of Admission 09/07/22 Corina Baker is an 81 yo female with a history of AFiB w/ RVR, CAD, Dementia, S/P stent, pacemaker, and valve replacement who presented to the ER for evaluation and management of chest pain. Patient states that her chest pain began on the evening of 09/07/22, and was a ssociated with pressure, sweating, and dizziness, but promptly resolved upon presentation to the ER. She was administered 325 mg aspirin, but SL Nitroglycerin was held due to the chest pain resolving on its own. CXR revealed cardiomegaly, with no radiographic evidence of acute cardiopulmonary process. EKG revealed a dual paced rhythm, with no evidence of STEMI. Her troponin was elevated at .095 ng/ml on day of presentation. Repeat troponin on 09/08, after admission to the med/surg floor, resulted at 0.147 ng/ml. Patient's chest pain did not return during the course of her admission, though she did complain of bilateral leg pain. PT and OT worked with Corina throughout her stay to address chronic debility and leg pain. Given Corina's complex cardiac history, she has been followed closely by Dr. Dixon, for which she received repeat EKGs, and an echo. EKGs repeatedly demonstrated a dual paced rhythm. Echocardiogram revealed severe concentric left ventricular hypertrophy, hyper-dynamic systolic function, and an ejection fraction of 70-75%, which is consistent with a pseudo-normal LV filling pattern (grade 2 diastolic dysfunction). Notably, patient did seem to have worsening cognitive function throughout her stay. services delivery driver has coordinated with Corina's , Mike, for placement at [facility] upon discharge. EDIN DYER Labs (last 24 hrs) Laboratory Tests 09/07/22 15:10: White Blood Count 12.3H, Red Blood Count 4.08, Hemoglobin 12.6, Hematocrit 38, Mean Corpuscular Volume 92, Mean Corpuscular Hemoglobin 31, Mean Corpuscular Hemoglobin Concent 34, Red Cell Distribution Width 13.6, Platelet Count 285, Mean Platelet Volume 9.7, Immature Granulocyte % (Auto) 0, Neutrophils (%) (Auto) 79H, Lymphocytes (%) (Auto) 10L, Monocytes (%) (Auto) 9, Eosinophils (%) (Auto) 1, Basophils (%) (Auto) 1, Neutrophils # (Auto) 9.7H, Lymphocytes # (Auto) 1.2, Monocytes # (Auto) 1.1H, Eosinophils # (Auto) 0.1, Basophils # (Auto) 0.1, Immature Granulocyte # (Auto) 0.1, Prothrombin Time 16.6H, INR Comment 1.3, Activated Partial Thromboplast Time 32, Sodium Level 140, Potassium Level 3.6, Chloride Level 102, Carbon Dioxide Level 26, Anion Gap 12, Blood Urea Nitrogen 23H, Creatinine 1.28, Estimat Glomerular Filtration Rate 42, BUN/Creatinine Ratio 18, Glucose Level 140H, Calcium Level 9.2, Corrected Calcium 9.4, Magnesium Level 2.0, Total Bilirubin 0.6, Aspartate Amino Transf (AST/SGOT) 34, Alanine Aminotransferase (ALT/SGPT) 28, Alkaline Phosphatase 134, Myoglobin 63.7, Troponin I 0.095H, Total Protein 7.1, Albumin 3.8, Lipase 21 09/08/22 05:05: White Blood Count 9.3, Red Blood Count 3.80, Hemoglobin 11.6, Hematocrit 35, Mean Corpuscular Volume 93, Mean Corpuscular Hemoglobin 31, Mean Corpuscular Hemoglobin Concent 33, Red Cell Distribution Width 13.7, Platelet Count 247, Mean Platelet Volume 9.8, Immature Granulocyte % (Auto) 0, Neutrophils (%) (Auto) 71, Lymphocytes (%) (Auto) 16, Monocytes (%) (Auto) 11, Eosinophils (%) (Auto) 2, Basophils (%) (Auto) 0, Neutrophils # (Auto) 6.6, Lymphocytes # (Auto) 1.5, Monocytes # (Auto) 1.0, Eosinophils # (Auto) 0.2, Basophils # (Auto) 0.0, Immature Granulocyte # (Auto) 0.0, Sodium Level 141, Potassium Level 3.3L, Chloride Level 101, Carbon Dioxide Level 28, Anion Gap 12, Blood Urea Nitrogen 26H, Creatinine 1.28, Estimat Glomerular Filtration Rate 42, BUN/Creatinine Ratio 20, Glucose Level 95, Calcium Level 8.9, Corrected Calcium 9.5, Total Bilirubin 0.5, Aspartate Amino Transf (AST/SGOT) 25, Alanine Aminotransferase (ALT/SGPT) 22, Alkaline Phosphatase 109, Troponin I 0.147H, Total Protein 6.2L, Albumin 3.2, Triglycerides Level 111, Cholesterol Level 122, LDL Cholesterol Direct 79, VLDL Cholesterol 22, HDL Cholesterol 27L 09/09/22 05:20: White Blood Count 9.9, Red Blood Count 3.73L, Hemoglobin 11.5, Hematocrit 35, Mean Corpuscular Volume 93, Mean Corpuscular Hemoglobin 31, Mean Corpuscular Hemoglobin Concent 33, Red Cell Distribution Width 13.6, Platelet Count 287, Mean Platelet Volume 9.7, Immature Granulocyte % (Auto) 0, Neutrophils (%) (Auto) 72, Lymphocytes (%) (Auto) 15, Monocytes (%) (Auto) 10, Eosinophils (%) (Auto) 2, Basophils (%) (Auto) 1, Neutrophils # (Auto) 7.1, Lymphocytes # (Auto) 1.5, Monocytes # (Auto) 1.0, Eosinophils # (Auto) 0.2, Basophils # (Auto) 0.1, Immature Granulocyte # (Auto) 0.0, Sodium Level 139, Potassium Level 3.6, Chloride Level 101, Carbon Dioxide Level 27, Anion Gap 11, Blood Urea Nitrogen 23H, Creatinine 1.23, Estimat Glomerular Filtration Rate 44, BUN/Creatinine Ratio 19, Glucose Level 98, Calcium Level 8.8, Corrected Calcium 9.4, Total Bilirubin 0.4, Aspartate Amino Transf (AST/SGOT) 22, Alanine Aminotransferase (ALT/SGPT) 23, Alkaline Phosphatase 106, Total Protein 6.2L, Albumin 3.2 09/10/22 05:10: White Blood Count 10.1, Red Blood Count 3.56L, Hemoglobin 11.1L, Hematocrit 33L, Mean Corpuscular Volume 93, Mean Corpuscular Hemoglobin 31, Mean Corpuscular Hemoglobin Concent 34, Red Cell Distribution Width 13.5, Platelet Count 268, Mean Platelet Volume 9.4, Immature Granulocyte % (Auto) 1, Neutrophils (%) (Auto) 71, Lymphocytes (%) (Auto) 15, Monocytes (%) (Auto) 11, Eosinophils (%) (Auto) 2, Basophils (%) (Auto) 1, Neutrophils # (Auto) 7.2, Lymphocytes # (Auto) 1.5, Monocytes # (Auto) 1.1H, Eosinophils # (Auto) 0.2, Basophils # (Auto) 0.1, Immature Granulocyte # (Auto) 0.1, Sodium Level 138, Potassium Level 3.5L, Chloride Level 101, Carbon Dioxide Level 27, Anion Gap 10, Blood Urea Nitrogen 22H, Creatinine 1.07, Estimat Glomerular Filtration Rate 52, BUN/Creatinine Ratio 21, Glucose Level 91, Calcium Level 8.8, Corrected Calcium 9.4, Total Bilirubin 0.6, Aspartate Amino Transf (AST/SGOT) 24, Alanine Aminotransferase (ALT/SGPT) 21, Alkaline Phosphatase 112, Total Protein 6.3L, Albumin 3.2 Pending Labs Laboratory Tests 09/07/22 15:10: White Blood Count 12.3, Red Blood Count 4.08, Hemoglobin 12.6, Hematocrit 38, Mean Corpuscular Volume 92, Mean Corpuscular Hemoglobin 31, Mean Corpuscular Hemoglobin Concent 34, Red Cell Distribution Width 13.6, Platelet Count 285, Mean Platelet Volume 9.7, Immature Granulocyte % (Auto) 0, Neutrophils (%) (Auto) 79, Lymphocytes (%) (Auto) 10, Monocytes (%) (Auto) 9, Eosinophils (%) (Auto) 1, Basophils (%) (Auto) 1, Neutrophils # (Auto) 9.7, Lymphocytes # (Auto) 1.2, Monocytes # (Auto) 1.1, Eosinophils # (Auto) 0.1, Basophils # (Auto) 0.1, Immature Granulocyte # (Auto) 0.1, Prothrombin Time 16.6, INR Comment 1.3, Activated Partial Thromboplast Time 32, Sodium Level 140, Potassium Level 3.6, Chloride Level 102, Carbon Dioxide Level 26, Anion Gap 12, Blood Urea Nitrogen 23, Creatinine 1.28, Estimat Glomerular Filtration Rate 42, BUN/Creatinine Ratio 18, Glucose Level 140, Calcium Level 9.2, Corrected Calcium 9.4, Magnesium Level 2.0, Total Bilirubin 0.6, Aspartate Amino Transf (AST/SGOT) 34, Alanine Aminotransferase (ALT/SGPT) 28, Alkaline Phosphatase 134, Myoglobin 63.7, Troponin I 0.095, Total Protein 7.1, Albumin 3.8, Lipase 21 09/08/22 05:05: White Blood Count 9.3, Red Blood Count 3.80, Hemoglobin 11.6, Hematocrit 35, Mean Corpuscular Volume 93, Mean Corpuscular Hemoglobin 31, Mean Corpuscular Hemoglobin Concent 33, Red Cell Distribution Width 13.7, Platelet Count 247, Mean Platelet Volume 9.8, Immature Granulocyte % (Auto) 0, Neutrophils (%) (Auto) 71, Lymphocytes (%) (Auto) 16, Monocytes (%) (Auto) 11, Eosinophils (%) (Auto) 2, Basophils (%) (Auto) 0, Neutrophils # (Auto) 6.6, Lymphocytes # (Auto) 1.5, Monocytes # (Auto) 1.0, Eosinophils # (Auto) 0.2, Basophils # (Auto) 0.0, Immature Granulocyte # (Auto) 0.0, Sodium Level 141, Potassium Level 3.3, Chloride Level 101, Carbon Dioxide Level 28, Anion Gap 12, Blood Urea Nitrogen 26, Creatinine 1.28, Estimat Glomerular Filtration Rate 42, BUN/Creatinine Ratio 20, Glucose Level 95, Calcium Level 8.9, Corrected Calcium 9.5, Total Bilirubin 0.5, Aspartate Amino Transf (AST/SGOT) 25, Alanine Aminotransferase (ALT/SGPT) 22, Alkaline Phosphatase 109, Troponin I 0.147, Total Protein 6.2, Albumin 3.2, Triglycerides Level 111, Cholesterol Level 122, LDL Cholesterol Direct 79, VLDL Cholesterol 22, HDL Cholesterol 27 09/09/22 05:20: White Blood Count 9.9, Red Blood Count 3.73, Hemoglobin 11.5, Hematocrit 35, Mean Corpuscular Volume 93, Mean Corpuscular Hemoglobin 31, Mean Corpuscular Hemoglobin Concent 33, Red Cell Distribution Width 13.6, Platelet Count 287, Mean Platelet Volume 9.7, Immature Granulocyte % (Auto) 0, Neutrophils (%) (Auto ) 72, Lymphocytes (%) (Auto) 15, Monocytes (%) (Auto) 10, Eosinophils (%) (Auto) 2, Basophils (%) (Auto) 1, Neutrophils # (Auto) 7.1, Lymphocytes # (Auto) 1.5, Monocytes # (Auto) 1.0, Eosinophils # (Auto) 0.2, Basophils # (Auto) 0.1, Immature Granulocyte # (Auto) 0.0, Sodium Level 139, Potassium Level 3.6, Chloride Level 101, Carbon Dioxide Level 27, Anion Gap 11, Blood Urea Nitrogen 23, Creatinine 1.23, Estimat Glomerular Filtration Rate 44, BUN/Creatinine Ratio 19, Glucose Level 98, Calcium Level 8.8, Corrected Calcium 9.4, Total Bilirubin 0.4, Aspartate Amino Transf (AST/SGOT) 22, Alanine Aminotransferase (ALT/SGPT) 23, Alkaline Phosphatase 106, Total Protein 6.2, Albumin 3.2 09/10/22 05:10: White Blood Count 10.1, Red Blood Count 3.56, Hemoglobin 11.1, Hematocrit 33, Mean Corpuscular Volume 93, Mean Corpuscular Hemoglobin 31, Mean Corpuscular Hemoglobin Concent 34, Red Cell Distribution Width 13.5, Platelet Count 268, Mean Platelet Volume 9.4, Immature Granulocyte % (Auto) 1, Neutrophils (%) (Auto) 71, Lymphocytes (%) (Auto) 15, Monocytes (%) (Auto) 11, Eosinophils (%) (Auto) 2, Basophils (%) (Auto) 1, Neutrophils # (Auto) 7.2, Lymphocytes # (Auto) 1.5, Monocytes # (Auto) 1.1, Eosinophils # (Auto) 0.2, Basophils # (Auto) 0.1, Immature Granulocyte # (Auto) 0.1, Sodium Level 138, Potassium Level 3.5, Chloride Level 101, Carbon Dioxide Level 27, Anion Gap 10, Blood Urea Nitrogen 22, Creatinine 1.07, Estimat Glomerular Filtration Rate 52, BUN/Creatinine Ratio 21, Glucose Level 91, Calcium Level 8.8, Corrected Calcium 9.4, Total Bilirubin 0.6, Aspartate Amino Transf (AST/SGOT) 24, Alanine Aminotransferase (ALT/SGPT) 2 1, Alkaline Phosphatase 112, Total Protein 6.3, Albumin 3.2 Discharge Home Medications: Active Scripts Active HYDROcodone/APAP 5 MG/325 MG TAB (Acetaminophen/Hydrocodone Bitart) 1 Tab Tab 1 Ea PO Q4H PRN Aspirin EC (Aspirin) 81 Mg Tablet.dr 81 Mg PO DAILY Nitroglycerin 0.4 Mg Tab.subl 0.4 Mg SL UD PRN Isosorbide Mononitrate ER (Isosorbide Mononitrate) 30 Mg Tab.er.24h 30 Mg PO DAILY Xarelto Tablet (Rivaroxaban) 15 Mg Tablet 15 Mg PO DAILY@1700 Gabapentin 100 Mg Capsule 100 Mg PO BID 30 Days Metoprolol Succinate 100 Mg Tab.er.24h 100 Mg PO DAILY Digoxin 125 Mcg (0.125 Mg) Tablet 125 Mcg PO DAILY Furosemide 40 Mg Tablet 40 Mg PO DAILY Diltiazem 24Hr ER (Diltiazem HCl) 240 Mg Cap.er.24h 240 Mg PO DAILY K-Tab ER (Potassium Chloride) 10 Meq Tablet.er 20 Meq PO DAILY TAKE 2 (10MEQ) TABS Levothyroxine Sodium 75 Mcg Tablet 75 Mcg PO DAILY Reported Atorvastatin Calcium 20 Mg Tablet 20 Mg PO HS Amiodarone HCl 200 Mg Tablet 200 Mg PO BID Instructions to patient/family Please see electronic discharge instructions given to patient. Diagnosis/Problems Diagnosis/Problems (1) Chest pain Status: Resolved Qualifiers: Qualified Codes: R07.9 - Chest pain, unspecified Resolution Date/Time: 10/01/21 @ 17:11 (2) Elevated troponin Status: Acute (3) HTN (hypertension) Status: Chronic (4) Debility Status: Acute Clinical Quality Measures AMI/AHF: ASA po Prior to arrival: Yes DAYA VILLEGAS DO Sep 10, 2022 12:06
[2022-09-10 12:24] VITALS: BP 156/80
--- NOTE | 2022-09-10 12:30 | Progress Note ---
GOMEZEDIN 09/10/22 1230: Progress Note Date of Admission 09/07/22 Corina Baker is an 81 yo female with a history of AFiB w/ RVR, CAD, Dementia, S/P stent, pacemaker, and valve replacement who presented to the ER for evaluation and management of chest pain. Patient states that her chest pain began on the evening of 09/07/22, and was associated with pressure, sweating, and dizziness, but promptly resolved upon presentation to the ER. She was administered 325 mg aspirin, but SL Nitroglycerin was held due to the chest pain resolving on its own. CXR revealed cardiomegaly, with no radiographic evidence of acute cardiopulmonary process. EKG revealed a dual paced rhythm, with no evidence of STEMI. Her troponin was elevated at .095 ng/ml on day of presentation. Repeat troponin on 09/08, after admission to the med/surg floor, resulted at 0.147 ng/ml. Patient's chest pain did not return during the course of her admission, though she did complain of bilateral leg pain. PT and OT worked with Corina throughout her stay to address chronic debility and leg pain. Given Corina's complex cardiac history, she has been followed closely by Dr. Dixon, for which she received repeat EKGs, and an echo. EKGs repeatedly demonstrated a dual paced rhythm. Echocardiogram revealed severe concentric left ventricular hypertrophy, hyper-dynamic systolic function, and an ejection fraction of 70-75%, which is consistent with a pseudo-normal LV filling pattern (grade 2 diastolic dysfunction). Notably, patient did seem to have worsening cognitive function throughout her stay. nutritional services director has coordinated with Corina's , Mike, for placement at [facility] upon discharge. LILLIAM VILLEGAS DO 09/10/22 [id number]: Supervisory-Addendum Brief Verification & Attestation Participated in pt care: history, MDM, physical Personally performed: exam, history, MDM, supervision of care Care discussed with: Medical Student Procedures: n/a Results interpretation: Verified all documentation Verification and Attestation of Medical Student E/M Service A medical student performed and documented this service in my presence. I reviewed and verified all information documented by the medical student and made modifications to such information, when appropriate. I personally performed the physical exam and medical decision making. Lilliam Villegas, Sep 10, 2022,17:07 EDIN DYER Sep 10, 2022 12:30 LILLIAM VILLEGAS DO Sep 10, 2022 17:07
[2022-09-10] MEDS ORDERED: RIVAROXABAN 15 MG TABLET (XARELTO) PO SCH (17:00)
== END 2022-09-10 12:03 | disposition home health service (06) ==
LOC: EDUNIT# 15:04 → ER 15:05 → UNDOADMOB 17:49 → 4TH 17:49 → UNDODISOB 09-10 12:03
PROVIDERS: ADMIT Internal Medicine; ATTEND Internal Medicine
DX: R07.9 Chest pain, unspecified (principal); R53.81 Other malaise; R77.8 Other specified abnormalities of plasma proteins; I25.10 Atherosclerotic heart disease of native coronary artery without angina pectoris; I48.0 Paroxysmal atrial fibrillation; I21.4 Non-ST elevation (NSTEMI) myocardial infarction; I50.32 Chronic diastolic (congestive) heart failure; D64.9 Anemia, unspecified; I27.20 Pulmonary hypertension, unspecified; I65.23 Occlusion and stenosis of bilateral carotid arteries; I49.5 Sick sinus syndrome; E78.5 Hyperlipidemia, unspecified; I11.0 Hypertensive heart disease with heart failure; E03.9 Hypothyroidism, unspecified; F03.90 Unspecified dementia, unspecified severity, without behavioral disturbance, psychotic disturbance, mood disturbance, and anxiety; M79.605 Pain in left leg; M79.604 Pain in right leg
CPT/HCPCS: 71045; 80053 ×4; 80061; 83690; 83735; 83874; 84484 ×2; 85025 ×4; 85610; 85730; 93005 ×3; 93041; 94760 ×2; 97116; 97162; 97165; 97530 ×2; 97535; 99284; C8929; G0378; 36415; 93306

== ENCOUNTER 2022-10-30 20:21 | Observation (INO) | payer MEDICARE ==
[~2022-10-30] VITALS: Ht 175.3 cm; Wt 60.4 kg
[~2022-10-30 20:21] MED LIST changes: +ISOS30TA82 PO; +RIVA15TA2 PO
[2022-10-30 20:33] LABS: BASOPHILS # (AUTO) 0.1 10^3/uL (0.0-0.1); BASOPHILS % (AUTO) 1 % (0-10); EOSINOPHILS # (AUTO) 0.3 10^3/uL (0.0-0.3); EOSINOPHILS % (AUTO) 3 % (0-10); HEMATOCRIT 34 % (35-52); HEMOGLOBIN 10.9 g/dL (11.5-16.0); LYMPHOCYTES # (AUTO) 1.6 10^3/uL (1.0-4.0); LYMPHOCYTES % (AUTO) 14 % (12-44); MEAN CORPUSCULAR HEMOGLOBIN 31 pg (25-34); MEAN CORPUSCULAR HGB CONC 32 g/dL (32-36); MEAN CORPUSCULAR VOLUME 98 fL (80-99); MEAN PLATELET VOLUME 9.6 fL (9.0-12.2); MONOCYTES # (AUTO) 0.9 10^3/uL (0.0-1.0); MONOCYTES % (AUTO) 8 % (0-12); NEUTROPHILS # (AUTO) 8.5 10^3/uL (1.8-7.8); NEUTROPHILS % (AUTO) 74 % (42-75); PLATELET COUNT 337 10^3/uL (130-400); WHITE BLOOD COUNT 11.4 10^3/uL (4.3-11.0)
--- NOTE | 2022-10-30 20:33 | ED Chest Pain ---
General Chief Complaint: Chest Pain Stated Complaint: CHEST PAIN Source: patient, EMS, retirement records Exam Limitations: no limitations History of Present Illness Date Seen by Provider: Oct 30, 2022 Time Seen by Provider: 20:21 Initial Comments 82-year-old female with past medical history of CAD, A-fib on Xarelto, CHF coming in via EMS from the retirement due to chest pain. Started roughly 7:45 PM, lasted 30 minutes. Got nitro x2. Right when EMS arrived, her pain went away completely. She states this felt more like she was overeating then heart attack. Denies any history of DVT or PE, and has not missed any doses of her blood thinner. Otherwise is denying any other acute complaints including cough, shortness of breath, fever, nausea, vomiting, diarrhea, weakness, numbness, or any other concerns. EMS gave her full dose aspirin on arrival. Allergies and Home Medications Allergies Coded Allergies: Penicillins (Verified Allergy, Unknown, 06/23/21) pineapple (Verified Allergy, Unknown, 06/23/21) Patient Home Medication List Home Medication List Reviewed: Yes Amiodarone HCl (Amiodarone HCl) 200 Mg Tablet, 200 MG PO BID, (Reported) Entered as Reported by: KATRINA CRUZ on 09/08/22 1131 Aspirin (Aspirin EC) 81 Mg Tablet.dr, 81 MG PO DAILY Prescribed by: DAYA VILLEGAS on 09/10/22 1204 Atorvastatin Calcium (Atorvastatin Calcium) 20 Mg Tablet, 20 MG PO HS, (Reported) Entered as Reported by: KATRINA CRUZ on 09/08/22 1131 Digoxin (Digoxin) 125 Mcg (0.125 Mg) Tablet, 125 MCG PO DAILY Prescribed by: DAYA VILLEGAS on 03/19/22 1144 Diltiazem HCl (Diltiazem 24Hr ER) 240 Mg Cap.er.24h, 240 MG PO DAILY Prescribed by: DAYA VILLEGAS on 03/19/22 1144 Furosemide (Furosemide) 40 Mg Tablet, 40 MG PO DAILY Prescribed by: DAYA VILLEGAS on 03/19/22 1144 Gabapentin (Gabapentin) 100 Mg Capsule, 100 MG PO BID Prescribed by: DAYA VILLEGAS on 09/07/22 1842 Hydrocodone Bit/Acetaminophen (HYDROcodone/APAP 5 MG/325 MG TAB) 1 Tab Tab, 1 EA PO Q4H PRN for PAIN-MODERATE (5-7) Prescribed by: DAYA VILLEGAS on 09/10/22 1205 Isosorbide Mononitrate (Isosorbide Mononitrate ER) 30 Mg Tab.er.24h, 30 MG PO DAILY Prescribed by: DAYA VILLEGAS on 09/10/22 1204 Levothyroxine Sodium (Levothyroxine Sodium) 75 Mcg Tablet, 75 MCG PO DAILY Prescribed by: DAYA VILLEGAS on 03/19/22 1144 Metoprolol Succinate (Metoprolol Succinate) 100 Mg Tab.er.24h, 100 MG PO DAILY Prescribed by: DAYA VILLEGAS on 03/19/22 1144 Nitroglycerin (Nitroglycerin) 0.4 Mg Tab.subl, 0.4 MG SL UD PRN for CHEST PAIN (ANGINA) Prescribed by: DAYA VILLEGAS on 09/10/22 1204 Potassium Chloride (K-Tab ER) 10 Meq Tablet.er, 20 MEQ PO DAILY Prescribed by: DAYA VILLEGAS on 03/19/22 1144 Rivaroxaban (Xarelto Tablet) 15 Mg Tablet, 15 MG PO DAILY@1700 Prescribed by: DAYA VILLEGAS on 09/10/22 1204 Review of Systems Review of Systems Constitutional: No fever EENTM: No Symptoms Reported Respiratory: No Symptoms Reported Cardiovascular: See HPI Gastrointestinal: No Symptoms Reported Genitourinary: No Symptoms Reported Musculoskeletal: no symptoms reported Skin: no symptoms reported Psychiatric/Neurological: No Symptoms Reported Endocrine: No Symptoms Reported Hematologic/Lymphatic: No Symptoms Reported Past Bgzvzpl-Pxidzm-Mvbqmb Hx Patient Social History Tobacco Use?: No Immunizations Up To Date Tetanus Booster (TDap): Unknown PED Vaccines UTD: No First/Initial COVID19 Vaccinat: october 2020 Second COVID19 Vaccination Darryl: november 2020 Third COVID19 Vaccination Date: MAY 2021 Seasonal Allergies Seasonal Allergies: Yes Past Medical History Surgery/Hospitalization HX: RTKR, , ANKLE 1999, INGUINAL HERNIA REPAIR, INTROCCULAR IMPLANTS, PACEMAKER, STENTS , VALVE REPLACMENT, PPM, HYSTERECTOMY AFIB, CAD, HTN, HIGH CHOLESTEROL, DEMENTIA, TBI, ARTHRITIS, HYPOTHRYOIDISM, ERIC Surgeries: Yes (RIGHT INGUINAL HERNIA REPAIR, 1979 RIGHT KNEE SURGERY, ANKLE 1999) Coronary Stent, Hysterectomy, Pacemaker, Valve Replacement Respiratory: Yes Tuberculosis Currently Using CPAP: No Currently Using BIPAP: No Cardiac: Yes (PACEMAKER, VALVE REPLACED) Atrial Fibrillation, Coronary Artery Disease, High Cholesterol, Hypertension, Peripheral Vascular, Valvular Heart Disease Neurological: Yes Dementia Reproductive Disorders: No Female Reproductive Disorders: Denies [employer]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 No Pertinent Family Hx Physical Exam Vital Signs Vital Signs - First Documented 10/30/22 20:23 Temp 36.2 Pulse 66 Resp 18 B/P (MAP) 133/76 (95) Pulse Ox 95 O2 Delivery Room Air Capillary Refill : Height, Weight, BMI Height: 5'9.00" Weight: 171lbs. 9.0oz. 77.324786pp; 18.77 BMI Method:Stated General Appearance: No Apparent Distress, WD/WN HEENT: PERRL/EOMI, Normal ENT Inspection, Pharynx Normal Neck: Full Range of Motion, Normal Inspection, Non Tender, Supple Respiratory: Chest Non Tender, Lungs Clear, Normal Breath Sounds, No Accessory Muscle Use, No Respiratory Distress Cardiovascular: Regular Rate, Rhythm, No Edema Gastrointestinal: Normal Bowel Sounds, Non Tender, Soft; No Distended, No Guarding Extremity: Normal Capillary Refill, Normal Inspection, Normal Range of Motion, Non Tender, No Calf Tenderness Neurologic/Psychiatric: Alert, No Motor/Sensory Deficits, Normal Mood/Affect, Other (At her mental baseline) Skin: Normal Color, Warm/Dry Procedures/Interventions Date of ETT Placement: Sep 10, 2020 Time of ETT Placement: 929 Suture Size: 4-0 Progress/Results/Core Measures Results/Orders Lab Results Laboratory Tests Test 10/30/22 20:25 Range/Units White Blood Count 11.4 H 4.3-11.0 10^3/uL Red Blood Count 3.47 L 3.80-5.11 10^6/uL Hemoglobin 10.9 L 11.5-16.0 g/dL Hematocrit 34 L 35-52 % Mean Corpuscular Volume 98 80-99 fL Mean Corpuscular Hemoglobin 31 25-34 pg Mean Corpuscular Hemoglobin Concent 32 32-36 g/dL Red Cell Distribution Width 15.4 H 10.0-14.5 % Platelet Count 337 130-400 10^3/uL Mean Platelet Volume 9.6 9.0-12.2 fL Immature Granulocyte % (Auto) 0 % Neutrophils (%) (Auto) 74 42-75 % Lymphocytes (%) (Auto) 14 12-44 % Monocytes (%) (Auto) 8 0-12 % Eosinophils (%) (Auto) 3 0-10 % Basophils (%) (Auto) 1 0-10 % Neutrophils # (Auto) 8.5 H 1.8-7.8 10^3/uL Lymphocytes # (Auto) 1.6 1.0-4.0 10^3/uL Monocytes # (Auto) 0.9 0.0-1.0 10^3/uL Eosinophils # (Auto) 0.3 0.0-0.3 10^3/uL Basophils # (Auto) 0.1 0.0-0.1 10^3/uL Immature Granulocyte # (Auto) 0.0 0.0-0.1 10^3/uL Prothrombin Time 15.5 H 12.2-14.7 SEC INR Comment 1.2 0.8-1.4 Activated Partial Thromboplast Time 30 24-35 SEC Sodium Level 141 135-145 MMOL/L Potassium Level 4.2 3.6-5.0 MMOL/L Chloride Level 103 98-107 MMOL/L Carbon Dioxide Level 24 21-32 MMOL/L Anion Gap 14 5-14 MMOL/L Blood Urea Nitrogen 23 H 7-18 MG/DL Creatinine 1.20 0.60-1.30 MG/DL Estimat Glomerular Filtration Rate 45 BUN/Creatinine Ratio 19 Glucose Level 127 H 70-105 MG/DL Calcium Level 8.7 8.5-10.1 MG/DL Corrected Calcium 9.0 8.5-10.1 MG/DL Magnesium Level 1.9 1.6-2.4 MG/DL Total Bilirubin 1.0 0.1-1.0 MG/DL Aspartate Amino Transf (AST/SGOT) 54 H 5-34 U/L Alanine Aminotransferase (ALT/SGPT) 32 0-55 U/L Alkaline Phosphatase 105 40-136 U/L Troponin I < 0.028 <0.028 NG/ML B-Type Natriuretic Peptide 513.6 H <100.0 PG/ML Total Protein 7.0 6.4-8.2 GM/DL Albumin 3.6 3.2-4.5 GM/DL Lipase 40 8-78 U/L My Orders Orders - YASIR SEVILLA MD Ekg Tracing (10/30/22 20:24) Cbc With Automated Diff (10/30/22:) Magnesium (10/30/22:) Chest 1 View, Ap/Pa Only (10/30/22) Comprehensive Metabolic Panel (10/30/22) Protime With Inr (10/30/22:) Partial Thromboplastin Time (10/30/22) O2 (10/30/22:) Monitor-Rhythm Ecg Trace Only (10/30/22:) Ed Iv/Invasive Line Start (10/30/22:) Lipase (10/30/22:) Bnp Jade (10/30/22:) Troponin I Jade (10/30/22 20:27) Troponin I Tensas (10/30/22 23:00) Ed Admission (Communication) (10/30/22 21:09) Vital Signs/I&O 10/30/22 10/30/22:23 20:29 Temp 36.2 Pulse 66 Resp 18 B/P (MAP) 133/76 (95) Pulse Ox 95 O2 Delivery Room Air Room Air Progress Progress Note : Progress Note 82-year-old female with above history coming in due to chest pain. ABCs were intact and vitals were stable on presentation. EKG ordered and interpreted by me showing ventricularly paced rhythm with a wide QRS and no STEMI. Appears similar to prior EKG. I reviewed the patient's most recent hospital stay relatively recently where she was in the hospital for chest pain. She had an NSTEMI at that time with a slightly trending up troponin that was still fairly low. Medical management was continued with Dr. Dixon following along. Patient does have a history of aortic valve replacement, CAD with stenting to her LAD, and most recent cath done in 2020 showing minor disease without intervention. An IV was placed and basic labs were obtained including cardiac biomarkers. Initial troponin negative, however patient came fairly rapidly after chest pain started. Repeat troponin will be ordered for later. I think ACS is more likely on her differential, less likely PE given her Xarelto use with no evidence clinically of a DVT. No obvious pneumonia on chest x-ray on my interpretation. I contacted Dr. Villegas who will admit the patient under observation status to the cardiac stepdown unit. I then contacted Dr. Dixon for consultation given the patient's complicated cardiac history. Initial ECG Impression Date: Oct 30, 2022 Initial ECG Impression Time: 20:26 Initial ECG Rate: 73 Comment Ventricularly paced rhythm with a wide QRS with a left bundle branch type pattern, no STEMI Diagnostic Imaging Diagonstic Imaging: Xray (chest) Comments [facility], [place] NAME: [facility] REC#: [id number] PT STATUS: REG ER : 1940 PHYSICIAN: YASIR SEVILLA MD ADMIT DATE: 10/30/22/ER Draft Date of Exam:10/30/22 CHEST 1 VIEW, AP/PA ONLY EXAMINATION: Chest 1 view. HISTORY: Chest pain. COMPARISON: 09/07/2022. FINDINGS: Stable enlargement of the cardiac silhouette. Surgical changes from valve repair. Left-sided cardiac device is unchanged. The lungs are clear without consolidation, pleural effusion or pneumothorax. The osseous structures are intact. IMPRESSION: No acute radiographic abnormality in the chest. Dictated on workstation # [id number] Dict: 10/30/222048 Trans: 10/30/222109 [facility] [phone] Interpreted by: TAHIR HOGAN DO Electronically signed by: Departure Impression Primary Impression: Angina at rest Disposition: ADMITTED INPATIENT Condition: Stable Admissions Decision to Admit Reason: Admit from ER (General) Decision to Admit/Date: Oct 30, 2022 Time/Decision to Admit Time: 21:10 Departure-Patient Inst. Referrals: DAYA VILLEGAS DO (PCP/Family) Primary Care Physician YASIR ESVILLA MD Oct 30, 2022 20:33
[2022-10-30 20:43] LABS: ALBUMIN 3.6 GM/DL (3.2-4.5); POTASSIUM 4.2 MMOL/L (3.6-5.0)
[2022-10-30 20:45] LABS: CALCIUM 8.7 MG/DL (8.5-10.1)
[2022-10-30 20:47] LABS: INR 1.2 (0.8-1.4); PROTHROMBIN TIME PATIENT 15.5 SEC (12.2-14.7)
[2022-10-30 20:49] LABS: CREATININE SERUM 1.2 MG/DL (0.60-1.30)
[2022-10-30 20:52] LABS: MAGNESIUM 1.9 MG/DL (1.6-2.4)
--- NOTE | 2022-10-30 21:12 | Diagnostic Imaging Report ---
EXAMINATION: Chest 1 view. HISTORY: Chest pain. COMPARISON: 09/07/2022. FINDINGS: Stable enlargement of the cardiac silhouette. Surgical changes from valve repair. Left-sided cardiac device is unchanged. The lungs are clear without consolidation, pleural effusion or pneumothorax. The osseous structures are intact. IMPRESSION: No acute radiographic abnormality in the chest. Dictated by: Dictated on workstation # [id number]
[2022-10-30 22:30] VITALS: BP 149/64
[2022-10-30 22:45] VITALS: BP 143/80
[2022-10-30] MEDS ORDERED: ACETAMINOPHEN 325 MG TABLET PO PRN (22:45)
[2022-10-30] MEDS ORDERED: LORazepam 0.5 MG (ATIVAN) TABLET PO PRN (22:45)
[2022-10-30] MEDS ORDERED: BISACODYL 10 MG SUPP (DULCOLAX) PR PRN (22:45)
[2022-10-30] MEDS ORDERED: ZIPRASIDONE 20 MG INJ (GEODON) VIAL IM PRN (22:45)
[2022-10-30] MEDS ORDERED: LACTULOSE SYRUP 10GM/15ML (ENULOSE) 30ML UDC PO PRN (22:45)
[2022-10-30] MEDS ORDERED: WATER (STERILE) FOR INJ 10 ML BTL INJ SCH (22:45)
[2022-10-30] MEDS ORDERED: diphenhydrAMINE 50 MG/ML INJ (BENADRYL) IVP PRN (22:45)
[2022-10-30] MEDS ORDERED: MILK OF MAGNESIA 400 MG/5 ML 30 ML UDC PO PRN (22:45)
[2022-10-30] MEDS ORDERED: MELATONIN 3 MG TABLET PO PRN (22:45)
[2022-10-30] MEDS ORDERED: ONDANSETRON 4 MG (ZOFRAN) ORAL DISSOLVE TAB PO PRN (22:45)
[2022-10-30] MEDS ORDERED: CALCIUM CARBONATE 500 MG (TUMS) TAB.CHEW PO PRN (22:45)
[2022-10-30] MEDS ORDERED: NITROGLYCERIN 0.4 MG SL TABS BTL 25'S SL PRN (22:45)
[2022-10-30] MEDS ORDERED: LORazepam INJ 2 MG/ML (ATIVAN) VIAL IVP PRN (22:45)
[2022-10-30] MEDS ORDERED: polyethylene glycoL POWDER 17 GM (MIRALAX) PACK PO PRN (22:45)
[2022-10-30] MEDS ORDERED: diphenhydrAMINE 25 MG TAB (BENADRYL) PO PRN (22:45)
[2022-10-30] MEDS ORDERED: ONDANSETRON 4 MG/2 ML (SDV) Z0FRAN IV PRN (22:45)
[2022-10-30] MEDS ORDERED: HYDROmorphone 2 MG/ML VIAL (DILAUDID) IV PRN (22:45)
[2022-10-30] MEDS ORDERED: ANTACID SUSP 30 ML UDC (MYLANTA) PO PRN (22:45)
[2022-10-30 22:56] VITALS: BP 133/76
[2022-10-30 23:00] VITALS: BP 147/79
[2022-10-30] MEDS ORDERED: RT-ALBUTEROL/IPRATROPIUM 3 ML (DUONEB) VIAL INH PRN (23:00)
[2022-10-30 23:15] VITALS: BP 142/74
[2022-10-30 23:45] VITALS: BP 150/85
[2022-10-31 00:15] VITALS: BP 149/82
[2022-10-31 04:00] VITALS: BP 144/88
[2022-10-31 04:50] LABS: BASOPHILS # (AUTO) 0.1 10^3/uL (0.0-0.1); BASOPHILS % (AUTO) 1 % (0-10); EOSINOPHILS # (AUTO) 0.2 10^3/uL (0.0-0.3); EOSINOPHILS % (AUTO) 2 % (0-10); HEMATOCRIT 32 % (35-52); HEMOGLOBIN 10.4 g/dL (11.5-16.0); LYMPHOCYTES # (AUTO) 1.5 10^3/uL (1.0-4.0); LYMPHOCYTES % (AUTO) 14 % (12-44); MEAN CORPUSCULAR HEMOGLOBIN 32 pg (25-34); MEAN CORPUSCULAR HGB CONC 33 g/dL (32-36); MEAN CORPUSCULAR VOLUME 97 fL (80-99); MEAN PLATELET VOLUME 9.4 fL (9.0-12.2); MONOCYTES # (AUTO) 1.1 10^3/uL (0.0-1.0); MONOCYTES % (AUTO) 10 % (0-12); NEUTROPHILS # (AUTO) 8.4 10^3/uL (1.8-7.8); NEUTROPHILS % (AUTO) 74 % (42-75); PLATELET COUNT 337 10^3/uL (130-400); WHITE BLOOD COUNT 11.3 10^3/uL (4.3-11.0)
[2022-10-31 04:59] LABS: ALBUMIN 3.3 GM/DL (3.2-4.5)
[2022-10-31 05:00] LABS: CHLORIDE 106 MMOL/L (98-107); POTASSIUM 3.5 MMOL/L (3.6-5.0); SODIUM 143 MMOL/L (135-145)
[2022-10-31 05:01] LABS: CALCIUM 8.7 MG/DL (8.5-10.1)
[2022-10-31 05:02] LABS: GLUCOSE 93 MG/DL (70-105); TOTAL PROTEIN 6.2 GM/DL (6.4-8.2)
[2022-10-31 05:03] LABS: CARBON DIOXIDE 24 MMOL/L (21-32)
[2022-10-31 05:04] LABS: BILIRUBIN,TOTAL 0.7 MG/DL (0.1-1.0)
[2022-10-31 05:05] LABS: ALKALINE PHOSPHATASE 146 U/L (40-136)
[2022-10-31 05:06] LABS: GFR ESTIMATED 56
[2022-10-31 05:07] LABS: BUN/CREATININE RATIO 23
[2022-10-31 05:09] LABS: ALANINE AMINOTRANSFERASE 73 U/L (0-55)
--- NOTE | 2022-10-31 05:36 | History & Physical ---
History of Present Illness HPI/Chief Complaint CC: Angina HPI: This is an 82yo[facility] patient of mine who has a h/o AF and CAD previous stents who presented to the ER due to diaphoresis and chest pain and was placed in observation to evaluate for ACS. All troponins were negative. Dr Dixon saw her in consultation and since she was back to baseline the decision to DC back to [place] was made and she was agreeable to that. Source: patient Exam Limitations: no limitations Date Seen 10/31/22 Time Seen by a Provider: 08:30 Attending Physician Lilliam Portillo DO PCP Admitting Physician: Lilliam Portillo DO Attending Physician: Lilliam Portillo DO Referring Physician Date of Admission Oct 30, 2022 at 22:21 Home Medications & Allergies Home Medications Reviewed patient Home Medication Reconciliation performed by pharmacy medication reconciliations electrocardiogram technician and/or nursing. Patients Allergies have been reviewed. Allergies Allergies Coded Allergies Penicillins (Verified Allergy, Unknown, 06/23/21) pineapple (Verified Allergy, Unknown, 06/23/21) Past Nyjtgsg-Qzsgcs-Nakosi Hx Past Med/Social Hx: Reviewed Nursing Past Med/Soc Hx, Reviewed and Corrections made Patient Social History Marrital Status: cohabiting Employed/Student: retired Smoking Status: Former Smoker Recent Hopitalizations: No Recent Infectious Disease Expo: No Immunizations Up To Date Tetanus Booster (TDap): Unknown Pediatric: No Date of Pneumonia Vaccine: Apr 12, 2018 Date of Influenza Vaccine: May 10, 2022 Seasonal Allergies Seasonal Allergies: Yes Past Medical History Surgeries: Coronary Stent, Hysterectomy, Pacemaker, Valve Replacement Respiratory: Pneumonia Currently Using CPAP: No Currently Using BIPAP: No Cardiac: Atrial Fibrillation, Coronary Artery Disease, High Cholesterol, Hypertension, Peripheral Vascular, Valvular Heart Disease Neurological: Dementia Reproductive: No Sexually Transmitted Disease: No HIV/AIDS: No Female Reproductive Disorders: Denies Hysterectomy Musculoskeletal: Arthritis, Chronic Back Pain Endocrine: Hypothyroidsim HEENT: Cataract Hearing Impairment: Hard of Hearing, Hearing Aide Right, Hearing Aide Left History of Blood Disorders: No Adverse Reaction to Blood Rogers: No Family History Patient reports no known family medical history. No Pertinent Family Hx Review of Systems Constitutional: see HPI Cardiovascular: chest pain Physical Exam Physical Exam Vital Signs Vital Signs - First Documented 10/30/22 10/30/22 20:23 22:56 Temp 36.2 Pulse 66 Resp 18 B/P (MAP) 133/76 (95) Pulse Ox 95 O2 Delivery Room Air FiO2 21 Capillary Refill : Less Than 3 Seconds Height, Weight, BMI Height: 5'9.00" Weight: 171lbs. 9.0oz. 77.098061rb; 19.65 BMI Method:Stated General Appearance: No Apparent Distress, WD/WN, Chronically ill HEENT: PERRL/EOMI, Normal ENT Inspection, Pharynx Normal Neck: Full Range of Motion, Normal Inspection, Non Tender, Supple Respiratory: Chest Non Tender, Lungs Clear, Normal Breath Sounds, No Accessory Muscle Use, No Respiratory Distress Cardiovascular: Regular Rate, Rhythm, No Edema Gastrointestinal: Normal Bowel Sounds, Non Tender, Soft; No Distended, No Guarding Extremity: Normal Capillary Refill, Normal Inspection, Normal Range of Motion, Non Tender, No Calf Tenderness Neurologic/Psychiatric: Alert, No Motor/Sensory Deficits, Normal Mood/Affect, Other (At her mental baseline) Skin: Normal Color, Warm/Dry Results Results/Procedures Labs Laboratory Tests 10/30/22 20:25 10/31/22 04:35 Patient resulted labs reviewed. Assessment/Plan Admission Diagnosis Assessment: Chest pain no evidence of ACS c/w chronic angina Chronic debility requiring NH placement CHF diastolic type Pacemaker Previous TVAR for aortic stenosis managed by cardiology AF with RVR 10/07/2021 requiring multiple medication changes in the past OAC maintained Dementia Advanced age s/p right knee replacement June 2021 h/o SIVA s/p critical illness 09/2020 requiring right ureter stent for obstruction of uncertain etiology Valvular heart disease History of HTN with severe OOC Hypothyroidism Presbycusis 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 which could contribute to cognitive decline Plan: DC back to [facility] Admission Status: Observation Diagnosis/Problems Diagnosis/Problems (1) Angina at rest Status: Acute Clinical Quality Measures AMI/AHF: ASA po Prior to arrival: Yes (ASA AND NITRO) LILLIAM PORTILLO DO Oct 31, 2022 05:35
[2022-10-31] MEDS ORDERED: LEVOTHYROXINE 75 MCG (LEVOTHROID) TABLET PO SCH (06:30)
[2022-10-31] MEDS ORDERED: KCL 10 MEQ TAB (MICRO K) PO SCH (07:00)
[2022-10-31 07:32] VITALS: BP 175/92
[2022-10-31] MEDS ORDERED: meTOprolol SUCCINATE 100 MG (TOPROL XL) TAB PO SCH (09:00)
[2022-10-31] MEDS ORDERED: ASPIRIN 81 MG CHEW (CHILDREN'S ASA) PO SCH (09:00)
[2022-10-31] MEDS ORDERED: FUROSEMIDE 40 MG (LASIX) TAB PO SCH (09:00)
[2022-10-31] MEDS ORDERED: GABAPENTIN 100 MG (NEURONTIN) CAP PO SCH (09:00)
[2022-10-31] MEDS ORDERED: ISOSORBIDE MONONITRATE 30 MG (IMDUR) TAB PO SCH (09:00)
[2022-10-31] MEDS ORDERED: DIGOXIN 0.125 MG (LANOXIN) TAB PO SCH (09:00)
[2022-10-31] MEDS ORDERED: DOCUSATE SODIUM 100 MG (COLACE) CAP PO SCH (09:00)
[2022-10-31] MEDS ORDERED: SENNOSIDES 8.6 MG (SENOKOT) TAB PO SCH (09:00)
[2022-10-31] MEDS ORDERED: AMIODARONE 200 MG (CORDARONE) TAB PO SCH (09:00)
[2022-10-31] MEDS ORDERED: NITROGLYCERIN 0.4 MG SL TABS BTL 25'S SL PRN (09:00)
[2022-10-31] MEDS ORDERED: HYDROcodone/APAP 5 MG/325 MG (LORTAB) TAB PO PRN (09:00)
--- NOTE | 2022-10-31 11:23 | Consultation-Cardiology ---
HPI-Cardiology Cardiology Consultation Date of Consultation 10/31/22 Date of Admission Time Seen by Provider: 11:19 Indication: Chest pain HPI 82-year-old lady with history of aortic valve replacement, coronary artery disease, was in her usual state of health until yesterday afternoon after eating supper had a transient episode of feeling diaphoretic and short of breath and had chest pain in the retrosternal area lasted for about 10 minutes and resolve spontaneously without taking any medication. Patient came into the emergency room, she was feeling better and did not receive any treatment in the emergency room. On my evaluation she was laying down comfortably, denied any chest pain denied any shortness of breath denied any palpitation. Home Medications & Allergies Allergies: Coded Allergies: Penicillins (Verified Allergy, Unknown, 06/23/21) pineapple (Verified Allergy, Unknown, 06/23/21) Home Medication List Reviewed: Yes [id number] Hx Patient Social History Marital Status: Employed/Student: retired Recent Hopitalizations: No Have you traveled recently?: No Alcohol Use?: No Immunizations Up To Date Tetanus Booster (TDap): Unknown Date of Pneumonia Vaccine: Apr 12, 2018 Date of Influenza Vaccine: May 10, 2022 Past Medical History Discussed below Family Medical History Significant Family History: No Pertinent Family Hx Family History: Patient reports no known family medical history. Review of Systems-General Review of Systems Constitutional: No fever; malaise EENTM: see HPI, no symptoms reported Respiratory: see HPI; No cough, No dyspnea on exertion, No hemoptysis, No orthopnea, No phlegm; short of breath; No stridor, No wheezing, No other Cardiovascular: see HPI, chest pain; No edema, No Hx of Intervention, No palpitations, No syncope, No vascular heart diseas, No other Gastrointestinal: no symptoms reported, see HPI Genitourinary: no symptoms reported, see HPI Musculoskeletal: no symptoms reported, back pain Skin: no symptoms reported Psychiatric/Neurological: No Symptoms Reported Reviewed Test Results Reviewed Test Results Lab Laboratory Tests Test 10/30/22 20:25 10/30/22 22:49 10/31/22 04:35 Range/Units White Blood Count 11.4 H 11.3 H 4.3-11.0 10^3/uL Red Blood Count 3.47 L 3.30 L 3.80-5.11 10^6/uL Hemoglobin 10.9 L 10.4 L 11.5-16.0 g/dL Hematocrit 34 L 32 L 35-52 % Mean Corpuscular Volume 98 97 80-99 fL Mean Corpuscular Hemoglobin 31 32 25-34 pg Mean Corpuscular Hemoglobin Concent 32 33 32-36 g/dL Red Cell Distribution Width 15.4 H 15.3 H 10.0-14.5 % Platelet Count 337 337 130-400 10^3/uL Mean Platelet Volume 9.6 9.4 9.0-12.2 fL Immature Granulocyte % (Auto) 0 0 % Neutrophils (%) (Auto) 74 74 42-75 % Lymphocytes (%) (Auto) 14 14 12-44 % Monocytes (%) (Auto) 8 10 0-12 % Eosinophils (%) (Auto) 3 2 0-10 % Basophils (%) (Auto) 1 1 0-10 % Neutrophils # (Auto) 8.5 H 8.4 H 1.8-7.8 10^3/uL Lymphocytes # (Auto) 1.6 1.5 1.0-4.0 10^3/uL Monocytes # (Auto) 0.9 1.1 H 0.0-1.0 10^3/uL Eosinophils # (Auto) 0.3 0.2 0.0-0.3 10^3/uL Basophils # (Auto) 0.1 0.1 0.0-0.1 10^3/uL Immature Granulocyte # (Auto) 0.0 0.0 0.0-0.1 10^3/uL Prothrombin Time 15.5 H 12.2-14.7 SEC INR Comment 1.2 0.8-1.4 Activated Partial Thromboplast Time 30 24-35 SEC Sodium Level 141 143 135-145 MMOL/L Potassium Level 4.2 3.5 L 3.6-5.0 MMOL/L Chloride Level 103 106 98-107 MMOL/L Carbon Dioxide Level 24 24 21-32 MMOL/L Anion Gap 14 13 5-14 MMOL/L Blood Urea Nitrogen 23 H 23 H 7-18 MG/DL Creatinine 1.20 1.00 0.60-1.30 MG/DL Estimat Glomerular Filtration Rate 45 56 BUN/Creatinine Ratio 19 23 Glucose Level 127 H 93 70-105 MG/DL Calcium Level 8.7 8.7 8.5-10.1 MG/DL Corrected Calcium 9.0 9.3 8.5-10.1 MG/DL Magnesium Level 1.9 1.6-2.4 MG/DL Total Bilirubin 1.0 0.7 0.1-1.0 MG/DL Aspartate Amino Transf (AST/SGOT) 54 H 86 H 5-34 U/L Alanine Aminotransferase (ALT/SGPT) 32 73 H 0-55 U/L Alkaline Phosphatase 105 146 H 40-136 U/L Troponin I < 0.028 < 0.028 < 0.028 <0.028 NG/ML B-Type Natriuretic Peptide 513.6 H <100.0 PG/ML Total Protein 7.0 6.2 L 6.4-8.2 GM/DL Albumin 3.6 3.3 3.2-4.5 GM/DL Lipase 40 8-78 U/L Physical Exam Physical Exam Vital Signs Vital Signs - First Documented 10/30/22 10/30/22 20:23 22:56 Temp 36.2 Pulse 66 Resp 18 B/P (MAP) 133/76 (95) Pulse Ox 95 O2 Delivery Room Air FiO2 21 Capillary Refill : Less Than 3 Seconds Height, Weight, BMI Height: 5'9.00" Weight: 171lbs. 9.0oz. 77.006756mn; 19.65 BMI Method:Stated General Appearance: No Apparent Distress, WD/WN HEENT: PERRL/EOMI, Normal ENT Inspection, Pharynx Normal Neck: Full Range of Motion, Normal Inspection, Non Tender, Supple Respiratory: Chest Non Tender, Lungs Clear, Normal Breath Sounds, No Accessory Muscle Use, No Respiratory Distress Cardiovascular: Regular Rate, Rhythm, No Edema, Systolic Murmur Gastrointestinal: Normal Bowel Sounds, Non Tender, Soft; No Distended, No Guarding Extremity: Normal Capillary Refill, Normal Inspection, Normal Range of Motion, Non Tender, No Calf Tenderness Neurologic/Psychiatric: Alert, No Motor/Sensory Deficits, Normal Mood/Affect, Other (At her mental baseline) Skin: Normal Color, Warm/Dry A/P-Cardiology Assessment/Plan Chest pain, nonspecific etiology, troponin continue to be normal Underlying EKG showing paced rhythm Chest pain has resolved spontaneously. No further episodes were reported Currently feeling better, controlled with medication, recommend conservative management. Started on Imdur 30mg daily Dizziness and lightheadedness with diaphoresis and near syncope, Patient has history of orthostatic dizziness. Currently blood pressure is moderately elevated I will avoid aggressive treatment due to her history of syncope. Generalized weakness, loss of energy, reporting improvement compared to last months. Patient is feeling better. Coronary artery disease- history of stent to the LAD, cardiac catheterization was carried out on September 30, 2021 showing patent stents with mild coronary artery disease nonobstructive disease, small vessel disease distally Continue to monitor Atrial fibrillation, paroxysmal, maintained on Xarelto. Maintained on Toprol XL 100 mg daily, Cardizem CD 240 mg daily, digoxin 0.125 mg daily. Amiodarone recently decreased to 200mg daily, continue to monitor History of severe aortic valve stenosis, status post TAVR done September 06, 2017 in [place] with uneventful deployment of a 26 mm Medtronic Evolut Pro. Repeat 2D echo was done on June 20, 2021 showing moderate to severe LVH with normal systolic function, significant deterioration in the aortic valve with a p eak gradient of 91 mmHg, valve area 1.4 cm. Mild mitral valve stenosis, pulmonary hypertension with PA pressure 50 to 55 mmHg Repeat 2D echo September 2021 showed peak gradient of 23 mmHg, mean gradient of 12 mmHg, which is similar to the finding previously, I feel that the echo finding on June 2021 were erroneously high. Patient has severe left ventricular hypertrophy. 2D Echocardiogram done 09/08/22 showing severe concentric hypertrophy, EF 70-75%. Grade 2 diastolic dysfunction. Severely dilated left atrium, dilated right atrium. Mild to moderate . Mechanical valve in aortic position with peak gradient 25mmHg, mean gradient 14mmHg, caculated valve area 1.6cm squared. PA 40-45mmHg. Congestive heart failure,chronic left ventricular diastolic dysfunction with severe left ventricular hypertrophy, maintained on diuretics. Anemia, continue to monitor H/H Pulmonary hypertension, monitor PA pressure Mild bilateral carotid stenosis, history of syncope. Last ultrasound was done in October 2021. Sick sinus syndrome, history of permanent pacemaker. Last pacemaker interrogation was done on September 02, 2022, Hypertension, labile blood pressure, difficult to control. Reporting episode of dizziness at home while standing. Instructed to use compression stockings. I am hesitant to do any changes to her blood pressure medication due to her falling and weakness and orthostatic hypotension Hyperlipidemia, continue to monitor lipids Hypothyroidism, monitor TSH Dementia, more deterioration recently Generalized weakness Patient is reporting significant improvement in her symptoms, currently asymptomatic Okay for discharge without change in her medication and return to the [facility] Clinical Quality Measures AMI/AHF: ASA po Prior to arrival: Yes (ASA AND NITRO) EDY GOOD MD Oct 31, 2022 11:23
[2022-10-31 12:21] VITALS: BP 151/85
--- NOTE | 2022-10-31 12:31 | Discharge Summary ---
Diagnosis/Chief Complaint Date of Admission Oct 30, 2022 at 22:21 Date of Discharge Discharge Date: Oct 31, 2022 Discharge Diagnosis Assessment: Chest pain no evidence of ACS c/w chronic angina Chronic debility requiring NH placement CHF diastolic type Pacemaker Previous TVAR for aortic stenosis managed by cardiology AF with RVR 10/07/2021 requiring multiple medication changes in the past OAC maintained Dementia Advanced age s/p right knee replacement June 2021 h/o SIVA s/p critical illness 09/2020 requiring right ureter stent for obstruction of uncertain etiology Valvular heart disease History of HTN with severe OOC Hypothyroidism Presbycusis 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 which could contribute to cognitive decline Plan: DC back to ID Discharge Summary Discharge Physical Examination Allergies: Coded Allergies: Penicillins (Verified Allergy, Unknown, 06/23/21) pineapple (Verified Allergy, Unknown, 06/23/21) Vitals & I&Os Vital Signs Date Time Temp Pulse Resp B/P (MAP) Pulse Ox O2 Delivery O2 Flow Rate FiO2 10/31/22 13:20 10/31/22 12:41 64 10/31/22 12:21 36.0 15 97 Room Air 10/30/22 22:56 21 General Appearance: Alert, Oriented X3, Cooperative Respiratory: Clear to Auscultation Cardiovascular: Regular Rate Psych/Mental Status: Mental Status NL Hospital Course Was the Problem List Reviewed?: Yes See HPI. Labs (last 24 hrs) Laboratory Tests 10/30/22 20:25: White Blood Count 11.4H, Red Blood Count 3.47L, Hemoglobin 10.9L, Hematocrit 34L , Mean Corpuscular Volume 98, Mean Corpuscular Hemoglobin 31, Mean Corpuscular Hemoglobin Concent 32, Red Cell Distribution Width 15.4H, Platelet Count 337, Mean Platelet Volume 9.6, Immature Granulocyte % (Auto) 0, Neutrophils (%) (Auto) 74, Lymphocytes (%) (Auto) 14, Monocytes (%) (Auto) 8, Eosinophils (%) (Auto) 3, Basophils (%) (Auto) 1, Neutrophils # (Auto) 8.5H, Lymphocytes # (Auto) 1.6, Monocytes # (Auto) 0.9, Eosinophils # (Auto) 0.3, Basophils # (Auto) 0.1, Immature Granulocyte # (Auto) 0.0, Prothrombin Time 15.5H, INR Comment 1.2, Activated Partial Thromboplast Time 30, Sodium Level 141, Potassium Level 4.2, Chloride Level 103, Carbon Dioxide Level 24, Anion Gap 14, Blood Urea Nitrogen 23H, Creatinine 1.20, Estimat Glomerular Filtration Rate 45, BUN/Creatinine Ratio 19, Glucose Level 127H, Calcium Level 8.7, Corrected Calcium 9.0, Magnesium Level 1.9, Total Bilirubin 1.0, Aspartate Amino Transf (AST/SGOT) 54H, Alanine Aminotransferase (ALT/SGPT) 32, Alkaline Phosphatase 105, Troponin I < 0.028, B-Type Natriuretic Peptide 513.6H, Total Protein 7.0, Albumin 3.6, Lipase 40 10/30/22 22:49: Troponin I < 0.028 10/31/22 04:35: White Blood Count 11.3H, Red Blood Count 3.30L, Hemoglobin 10.4L, Hematocrit 32L , Mean Corpuscular Volume 97, Mean Corpuscular Hemoglobin 32, Mean Corpuscular Hemoglobin Concent 33, Red Cell Distribution Width 15.3H, Platelet Count 337, Mean Platelet Volume 9.4, Immature Granulocyte % (Auto) 0, Neutrophils (%) (Auto) 74, Lymphocytes (%) (Auto) 14, Monocytes (%) (Auto) 10, Eosinophils (%) (Auto) 2, Basophils (%) (Auto) 1, Neutrophils # (Auto) 8.4H, Lymphocytes # (Auto) 1.5, Monocytes # (Auto) 1.1H, Eosinophils # (Auto) 0.2, Basophils # (Auto) 0.1, Immature Granulocyte # (Auto) 0.0, Sodium Level 143, Potassium Level 3.5L, Chloride Level 106, Carbon Dioxide Level 24, Anion Gap 13, Blood Urea Nitrogen 23H, Creatinine 1.00, Estimat Glomerular Filtration Rate 56, BUN/Creatinine Ratio 23, Glucose Level 93, Calcium Level 8.7, Corrected Calcium 9.3, Total Bilirubin 0.7, Aspartate Amino Transf (AST/SGOT) 86H, Alanine Aminotransferase (ALT/SGPT) 73H, Alkaline Phosphatase 146H, Troponin I < 0.028, Total Protein 6.2L, Albumin 3.3 Pending Labs Laboratory Tests 10/30/22 20:25: White Blood Count 11.4, Red Blood Count 3.47, Hemoglobin 10.9, Hematocrit 34, Mean Corpuscular Volume 98, Mean Corpuscular Hemoglobin 31, Mean Corpuscular Hemoglobin Concent 32, Red Cell Distribution Width 15.4, Platelet Count 337, Mean Platelet Volume 9.6, Immature Granulocyte % (Auto) 0, Neutrophils (%) (Auto) 74, Lymphocytes (%) (Auto) 14, Monocytes (%) (Auto) 8, Eosinophils (%) (Auto) 3, Basophils (%) (Auto) 1, Neutrophils # (Auto) 8.5, Lymphocytes # (Auto) 1.6, Monocytes # (Auto) 0.9, Eosinophils # (Auto) 0.3, Basophils # (Auto) 0.1, Immature Granulocyte # (Auto) 0.0, Prothrombin Time 15.5, INR Comment 1.2, Activated Partial Thromboplast Time 30, Sodium Level 141, Potassium Level 4.2, Chloride Level 103, Carbon Dioxide Level 24, Anion Gap 14, Blood Urea Nitrogen 23, Creatinine 1.20, Estimat Glomerular Filtration Rate 45, BUN/Creatinine Ratio 19, Glucose Level 127, Calcium Level 8.7, Corrected Calcium 9.0, Magnesium Level 1.9, Total Bilirubin 1.0, Aspartate Amino Transf (AST/SGOT) 54, Alanine Choi otransferase (ALT/SGPT) 32, Alkaline Phosphatase 105, Troponin I < 0.028, B-Type Natriuretic Peptide 513.6, Total Protein 7.0, Albumin 3.6, Lipase 40 10/30/22 22:49: Troponin I < 0.028 10/31/22 04:35: White Blood Count 11.3, Red Blood Count 3.30, Hemoglobin 10.4, Hematocrit 32, Mean Corpuscular Volume 97, Mean Corpuscular Hemoglobin 32, Mean Corpuscular Hemoglobin Concent 33, Red Cell Distribution Width 15.3, Platelet Count 337, Mean Platelet Volume 9.4, Immature Granulocyte % (Auto) 0, Neutrophils (%) (Auto) 74, Lymphocytes (%) (Auto) 14, Monocytes (%) (Auto) 10, Eosinophils (%) (Auto) 2, Basophils (%) (Auto) 1, Neutrophils # (Auto) 8.4, Lymphocytes # (Auto) 1.5, Monocytes # (Auto) 1.1, Eosinophils # (Auto) 0.2, Basophils # (Auto) 0.1, Immature Granulocyte # (Auto) 0.0, Sodium Level 143, Potassium Level 3.5, Chloride Level 106, Carbon Dioxide Level 24, Anion Gap 13, Blood Urea Nitrogen 23, Creatinine 1.00, Estimat Glomerular Filtration Rate 56, BUN/Creatinine Ratio 23, Glucose Level 93, Calcium Level 8.7, Corrected Calcium 9.3, Total Bilirubin 0.7, Aspartate Amino Transf (AST/SGOT) 86, Alanine Aminotransferase (ALT/SGPT) 73, Alkaline Phosphatase 146, Troponin I < 0.028, Total Protein 6.2, Albumin 3.3 Discharge Home Medications: Active Scripts Active HYDROcodone/APAP 5 MG/325 MG TAB (Acetaminophen/Hydrocodone Bitart) 1 Tab Tab 1 Ea PO Q4H PRN Aspirin EC (Aspirin) 81 Mg Tablet.dr 81 Mg PO DAILY Nitroglycerin 0.4 Mg Tab.subl 0.4 Mg SL UD PRN Isosorbide Mononitrate ER (Isosorbide Mononitrate) 30 Mg Tab.er.24h 30 Mg PO DAILY Xarelto Tablet (Rivaroxaban) 15 Mg Tablet 15 Mg PO DAILY@1700 Gabapentin 100 Mg Capsule 100 Mg PO BID 30 Days Metoprolol Succinate 100 Mg Tab.er.24h 100 Mg PO DAILY Digoxin 125 Mcg (0.125 Mg) Tablet 125 Mcg PO DAILY Furosemide 40 Mg Tablet 40 Mg PO DAILY Diltiazem 24Hr ER (Diltiazem HCl) 240 Mg Cap.er.24h 240 Mg PO DAILY K-Tab ER (Potassium Chloride) 10 Meq Tablet.er 20 Meq PO DAILY TAKE 2 (10MEQ) TABS Levothyroxine Sodium 75 Mcg Tablet 75 Mcg PO DAILY Reported Atorvastatin Calcium 20 Mg Tablet 20 Mg PO HS Amiodarone HCl 200 Mg Tablet 200 Mg PO BID Instructions to patient/family Please see electronic discharge instructions given to patient. Clinical Quality Measures AMI/AHF: ASA po Prior to arrival: Yes (ASA AND NITRO) DAYA VILLEGAS DO Oct 31, 2022 12:31
[2022-10-31] MEDS ORDERED: RIVAROXABAN 15 MG TABLET (XARELTO) PO SCH (17:00)
== END 2022-10-31 12:28 ==
LOC: EDUNIT# 20:21 → ER 20:24 → UNDOADMOB 22:21 → CSD 22:21 → UNDODISOB 10-31 12:28
PROVIDERS: ADMIT Internal Medicine; ATTEND Internal Medicine
DX: I11.0 Hypertensive heart disease with heart failure (principal); I50.32 Chronic diastolic (congestive) heart failure; I25.10 Atherosclerotic heart disease of native coronary artery without angina pectoris; I27.20 Pulmonary hypertension, unspecified; I49.5 Sick sinus syndrome; I48.91 Unspecified atrial fibrillation; N17.9 Acute kidney failure, unspecified; E03.9 Hypothyroidism, unspecified; I38 Endocarditis, valve unspecified; H91.10 Presbycusis, unspecified ear; I48.0 Paroxysmal atrial fibrillation; D64.9 Anemia, unspecified; E78.5 Hyperlipidemia, unspecified; Z95.0 Presence of cardiac pacemaker; F03.90 Unspecified dementia, unspecified severity, without behavioral disturbance, psychotic disturbance, mood disturbance, and anxiety; Z95.2 Presence of prosthetic heart valve; Z79.899 Other long term (current) drug therapy; Z79.01 Long term (current) use of anticoagulants; Z96.651 Presence of right artificial knee joint; Z87.820 Personal history of traumatic brain injury; Z79.890 Hormone replacement therapy
CPT/HCPCS: 36415; 71045; 80053; 83690; 83735; 83880; 84484; 85025; 85610; 85730; 93005; 93041